=== PATIENT | female | born 1940 | race African-American/Black ===

== ENCOUNTER 2017-04-20 17:06 | Observation (INO) | payer MEDICARE, MEDICAID ==
--- NOTE | 2017-04-20 18:39 | RADIOLOGY REPORT (SQ) ---
EXAM DESCRIPTION: CHEST PA/LAT COMPLETED DATE/TIME: 04/20/2017 6:26 pm REASON FOR STUDY: Unspecified Encephalopathy COMPARISON: None. EXAM PARAMETERS: NUMBER OF VIEWS: two views TECHNIQUE: Digital Frontal and Lateral radiographic views of the chest acquired. RADIATION DOSE: NA LIMITATIONS: none FINDINGS: LUNGS AND PLEURA: No opacities, masses or pneumothorax. No pleural effusion. MEDIASTINUM AND HILAR STRUCTURES: No masses or contour abnormalities. HEART AND VASCULAR STRUCTURES: Heart normal size. No evidence for failure. BONES: No acute findings. HARDWARE: None in the chest. OTHER: No other significant finding. IMPRESSION: NO SIGNIFICANT RADIOGRAPHIC FINDING IN THE CHEST. TECHNICAL DOCUMENTATION: JOB ID: [id number] [employer]- All Rights Reserved
[2017-04-20 19:15] LABS: ABSOLUTE BASOPHILS # (AUTO) 0.1 10^3/uL (0.0-0.2); ABSOLUTE EOSINOPHILS # (AUTO) 0.2 10^3/uL (0.0-0.6); ABSOLUTE LYMPHOCYTES (AUTO) 1.3 10^3/uL (0.5-4.7); ABSOLUTE MONOCYTES (AUTO) 0.6 10^3/uL (0.1-1.4); ABSOLUTE NEUT (AUTO) 5.8 10^3/uL (1.7-8.2); BASOPHILS % (AUTO) 1.7 % (0-2); HEMATOCRIT 39.1 % (36.0-47.0); HEMOGLOBIN 12.5 g/dL (12.0-15.5); LYMPHOCYTES % (AUTO) 15.8 % (13-45); MEAN CORPUSCULAR HEMOGLOBIN 29.2 pg (27.0-33.4); MEAN CORPUSCULAR HGB CONC 32.1 g/dL (32.0-36.0); MEAN CORPUSCULAR VOLUME 91 fl (80-97); PLATELET COUNT 211 10^3/uL (150-450); RED BLOOD COUNT 4.29 10^6/uL (3.72-5.28); RED CELL DISTRIBUTION WIDTH 18.8 % (11.5-14.0); SEGMENTED NEUTROPHILS % (AUTO) 71.5 % (42-78); TOTAL CELLS COUNTED % (AUTO) 100 %; WHITE BLOOD COUNT 8.1 10^3/uL (4.0-10.5)
[2017-04-20 19:33] LABS: ALANINE AMINOTRANSFERASE 9 U/L (9-52); ALBUMIN 4.5 g/dL (3.5-5.0); ANION GAP 7 (5-19); BILIRUBIN,DIRECT 0.3 mg/dL (0.0-0.4); BILIRUBIN,TOTAL 0.3 mg/dL (0.2-1.3); BLOOD UREA NITROGEN 24 mg/dL (7-20); CARBON DIOXIDE 32 mmol/L (22-30); CHLORIDE 103 mmol/L (98-107); GLUCOSE 108 mg/dL (75-110); SODIUM 142.2 mmol/L (137-145)
[2017-04-20 19:34] LABS: CALCIUM 10.5 mg/dL (8.4-10.2); CREATINE KINASE 65 U/L (30-135)
--- NOTE | 2017-04-20 19:34 | ER Document Report ---
ED Medical Screen (RME) - General Chief Complaint: Direct Admit/Private MD Stated Complaint: DIRECT ADMIT-UNSPECIFIED ENCEPHALOPATHY Notes: This 76-year-old female patient was brought in for a direct admission for encephalopathy with nursing orders to include lab work and imaging studies. She is alert, reasonably oriented but does seem to have some dementia. She is smiling and pleasant and conversant. Vital signs are stable. She is medically stable at this time to wait until a bed assignment becomes available. Her lab work was initiated here in the triage area. I have greeted and performed a rapid initial assessment of this patient. A comprehensive ED assessment and evaluation of the patient, analysis of test results and completion of the medical decision making process will be conducted by additional ED providers. TRAVEL OUTSIDE OF THE [place] IN LAST 30 DAYS: No - Related Data Allergies/Adverse Reactions: No Known Allergies Allergy (Unverified 04/20/17 18:41) Home Medications: Current Home Medications Allopurinol [Zyloprim 100 mg Tablet] 100 mg PO DAILY 04/20/17 [History] Aspirin [Aspirin EC] 81 mg PO DAILY 04/20/17 [History] Hydrocodone/Acetaminophen [Hydrocodon-Acetaminoph 7.5-325] 1 each PO BID [History] Past Medical History - Social History Chew tobacco use (# tins/day): No Frequency of alcohol use: None Drug Abuse: None Renal/ Medical History: Denies: Hx Peritoneal Dialysis Past Surgical History: Reports: Hx Orthopedic Surgery - right knee replacement Physical Exam - Vital signs Vitals: Temp Pulse Resp BP Pulse Ox 97.7 F 72 18 116/50 L 99 04/20/17 17:46 04/20/17 17:46 04/20/17 17:46 04/20/17 17:46 04/20/17 17:46 Course - Vital Signs Vital signs: Temp Pulse Resp BP Pulse Ox 97.7 F 72 18 116/50 L 99 04/20/17 17:46 04/20/17 17:46 04/20/17 17:46 04/20/17 17:46 04/20/17 17:46 - Laboratory Result Diagrams: 04/20/17 19:02 04/20/17 19:02 Doctor's Discharge - Discharge Clinical Impression: Encephalitis Disposition: ADMITTED INPATIENT
[2017-04-20 19:35] LABS: ALKALINE PHOSPHATASE 73 U/L (38-126); ASPARTATE AMINO TRANSFERASE 26 U/L (14-36)
[2017-04-20 19:45] LABS: CREATINE KINASE MB 0.88 ng/mL (<4.55)
[2017-04-20 19:46] LABS: TROPONIN I < 0.012 ng/mL
[2017-04-20] MEDS ORDERED: NORMAL SALINE 1000 ML 1,000 ML IV PRN (20:55)
[2017-04-20] MEDS ORDERED: ALLOPURINOL 100 MG TABLET PO ONE (22:00)
[2017-04-20] MEDS ORDERED: ASPIRIN 81 MG TABLET, ENT COATED PO ONE (22:00)
[2017-04-20 22:16] LABS: APPEARANCE,URINE CLOUDY; BILIRUBIN,URINE NEGATIVE (NEGATIVE); COLOR,URINE YELLOW; GLUCOSE, URINE NEGATIVE (NEGATIVE); KETONES,URINE NEGATIVE (NEGATIVE); LEUKOCYTE ESTERASE,URINE LARGE (NEGATIVE); NITRITE,URINE NEGATIVE (NEGATIVE); PROTEIN,URINE 30 mg/dL (NEGATIVE); URINE SPECIFIC GRAVITY 1.021; UROBILINOGEN,URINE NEGATIVE mg/dL (<2.0)
[2017-04-21] MEDS: 1/2 NORMAL SALINE 1,000 ML IV PRN ×2 (00:11→20:36)
[2017-04-21 00:49] LABS: ARTERIAL BLOOD BASE EXCESS 1.5 mmol/L; ARTERIAL BLOOD H2CO3 1.38 mmol/L (1.05-1.35); ARTERIAL BLOOD O2 SATURATION 92.4 % (94-98); ARTERIAL BLOOD PH 7.39 (7.35-7.45); ARTERIAL BLOOD PO2 64.9 mmHg (80-100); ARTERIAL BLOOD TOTAL CO2 28.4 mmol/L (21-25)
[2017-04-21 00:59] LABS: ARTERIAL BLOOD FIO2 RA
[2017-04-21 01:58] LABS: CREATINE KINASE MB 0.65 ng/mL (<4.55)
[2017-04-21 02:01] LABS: TROPONIN I < 0.012 ng/mL
[2017-04-21] MEDS: HYDROCODONE/ACETAMINOPHEN 7.5-325 MG TABLET PO SCH ×3 (05:28→22:01)
--- NOTE | 2017-04-21 07:50 | EKG REPORT ---
SEVERITY:- NORMAL ECG - SINUS RHYTHM : Confirmed by: Timothy Deras MD 21-Apr-2017 07:49:20
[2017-04-21 08:15] LABS: CREATINE KINASE MB 0.55 ng/mL (<4.55)
[2017-04-21 08:18] LABS: TROPONIN I < 0.012 ng/mL
[2017-04-21] MEDS: ASPIRIN 81 MG TABLET, ENT COATED PO SCH (09:47)
[2017-04-21] MEDS: ALLOPURINOL 100 MG TABLET PO SCH (09:47)
[2017-04-21] MEDS ORDERED: LEVOTHYROXINE SODIUM 0.075 MG TABLET PO ONE (17:00)
[2017-04-21] MEDS ORDERED: CALCITRIOL 0.25 MCG CAPSULE PO ONE (17:00)
[2017-04-21] MEDS ORDERED: FERROUS SULFATE 325 MG TABLET PO SCH (17:30)
--- NOTE | 2017-04-21 17:33 | PDOC H&P ---
History of Present Illness Admission Date/PCP: 04/20/17 17:24 MARY RASHID MD History of Present Illness: IVY CLAIRE is a 76 year old female, she came to the office on 04/19/2017 with family because of concern that she may have suffered a stroke, she has a history of right cerebellar infarct, because of the concern MRI of the brain was done stat, it showed chronic appearing right inferior cerebellar hemisphere tiny lacunar infarct there was no acute change on the MRI, family was reassured that there was no stroke. They were concerned because she has symptoms that was similar when she had a stroke, she was confused, she had gait abnormality, increased fall AND very dizzy. The family called the office on 04/20/2017 because patient was still not improving, she was still confused, still talking out of her head she was directly admitted from the office into the hospital but unfortunately there was no bed in the hospital patient care was delayed, she stated for very long time in the emergency room , the initial blood work that was done showed serum creatinine 1.3 , there was no immediate metabolic explanation for the encephalopathic symptoms. Subsequently urine dipstick was done that suggest possible UTI. The blood gas showed mixed acid-base disorder Past Medical History Neurological Medical History: Reports: Other - History of right inferior cerebellar infarction Endocrine Medical History: Reports: Hypothyroidism Renal/ Medical History: Reports: Chronic Kidney Disease, Other - Chronic kidney disease stage III Past Surgical History Past Surgical History: Reports: Orthopedic Surgery - right knee replacement Social History Smoking Status: Former Smoker Number of Years Smokin Last Time Smoked: 1987 Frequency of Alcohol Use: None Hx Recreational Drug Use: No Drugs: None Hx Prescription Drug Abuse: No Family History Parental Family History Reviewed: Yes Children Family History Reviewed: Yes Sibling(s) Family History Reviewed.: Yes Medication/Allergy Home Medications: Allopurinol [Zyloprim 100 mg Tablet] 100 mg PO DAILY 04/21/17 Aspirin/Dipyridamole [Aggrenox 25 mg-200 mg Capsule] 1 cap PO Q12 04/21/17 Atorvastatin Calcium [Lipitor 10 mg Tablet] 10 mg PO DAILY 04/21/17 Calcitriol [Rocaltrol 0.5 mcg Capsule] 0.5 mcg PO DAILY 04/21/17 Ferrous Sulfate [Feosol 325 mg Tablet] 325 mg PO DAILY 04/21/17 Gabapentin [Neurontin 300 mg Capsule] 300 mg PO Q8 04/21/17 Levothyroxine Sodium [Synthroid 0.075 mg Tablet] 0.075 mg PO Q6AM 04/21/17 Metoprolol Succinate [Toprol XL 100 mg Tablet] 100 mg PO DAILY 04/21/17 Sertraline HCl [Zoloft 50 mg Tablet] 50 mg PO DAILY 04/21/17 Valsartan/Hydrochlorothiazide [Valsartan-Hctz 160-12.5 mg Tab] 1 tab PO DAILY Allergies/Adverse Reactions: No Known Allergies Allergy (Unverified 04/20/17 18:41) Review of Systems Constitutional: ABSENT: chills, fever(s), headache(s), weight gain, weight loss Eyes: ABSENT: visual disturbances Ears: ABSENT: hearing changes Cardiovascular: ABSENT: chest pain, dyspnea on exertion, edema, orthropnea, palpitations Respiratory: ABSENT: cough, hemoptysis Gastrointestinal: ABSENT: abdominal pain, constipation, diarrhea, hematemesis, hematochezia, nausea, vomiting Genitourinary: ABSENT: dysuria, hematuria Musculoskeletal: ABSENT: joint swelling Integumentary: ABSENT: rash, wounds Neurological: PRESENT: confusion Psychiatric: ABSENT: anxiety, depression, homidical ideation, suicidal ideation Endocrine: ABSENT: cold intolerance, heat intolerance, menstrual abnormalities, polydipsia, polyuria Hematologic/Lymphatic: ABSENT: easy bleeding, easy bruising, lymphadenopathy Physical Exam Vital Signs: Temp Pulse Resp BP Pulse Ox 97.7 F 67 14 117/61 86 L 04/20/17 17:46 04/21/17 02:00 04/21/17 11:30 04/21/17 11:30 04/21/17 11:30 Intake & Output 04/20/17 04/21/17 04/22/17 06:59 06:59 06:59 Intake Total 525 Balance 525 Weight 102.3 kg General appearance: PRESENT: no acute distress, well-developed, well-nourished Head exam: PRESENT: atraumatic, normocephalic Eye exam: PRESENT: conjunctiva pink, EOMI, PERRLA. ABSENT: scleral icterus Ear exam: PRESENT: normal external ear exam Mouth exam: PRESENT: moist, tongue midline Neck exam: PRESENT: full ROM Respiratory exam: PRESENT: clear to auscultation heidi Cardiovascular exam: PRESENT: RRR, +S1, +S2 Pulses: PRESENT: normal dorsalis pedis pul, +2 pedal pulses bilateral Vascular exam: PRESENT: normal capillary refill GI/Abdominal exam: PRESENT: normal bowel sounds, soft. ABSENT: distended, guarding, mass, organolmegaly, rebound, tenderness Rectal exam: PRESENT: deferred Neurological exam: PRESENT: alert, awake, oriented to person, oriented to place , oriented to time, oriented to situation, CN II-XII grossly intact Psychiatric exam: PRESENT: appropriate affect, normal mood Skin exam: PRESENT: dry, intact, warm Results Laboratory Results: 04/20/17 19:02 04/20/17 19:02 04/20/17 04/20/17 04/20/17 19:02 19: 19:02 WBC 8.1 RBC 4.29 Hgb 12.5 Hct 39.1 MCV 91 MCH 29.2 MCHC 32.1 RDW 18.8 H Plt Count 211 Seg Neutrophils % 71.5 Lymphocytes % 15.8 Monocytes % 8.0 Eosinophils % 3.0 Basophils % 1.7 Absolute Neutrophils 5.8 Absolute Lymphocytes 1.3 Absolute Monocytes 0.6 Absolute Eosinophils 0.2 Absolute Basophils 0.1 Carbonic Acid HCO3/H2CO3 Ratio ABG pH ABG pCO2 ABG pO2 ABG HCO3 ABG O2 Saturation ABG Base Excess FiO2 Sodium 142.2 Potassium 4.0 Chloride 103 Carbon Dioxide 32 H Anion Gap 7 BUN 24 H Creatinine 1.32 H Est GFR ( Amer) 47 L Est GFR (Non-Af Amer) 39 L Glucose 108 Lactic Acid 1.4 Calcium 10.5 H Total Bilirubin 0.3 AST 26 ALT 9 Alkaline Phosphatase 73 Total Protein 8.0 Albumin 4.5 PTH Intact Urine Color Urine Appearance Urine pH Ur Specific [place] Urine Protein Urine Glucose (UA) Urine Ketones Urine Blood Urine Nitrite Ur Leukocyte Esterase Urine WBC (Auto) Urine RBC (Auto) 04/20/17 04/20/17 04/21/17 20:45 22:18 00:20 WBC RBC Hgb Hct MCV MCH MCHC RDW Plt Count Seg Neutrophils % Lymphocytes % Monocytes % Eosinophils % Basophils % Absolute Neutrophils Absolute Lymphocytes Absolute Monocytes Absolute Eosinophils Absolute Basophils Carbonic Acid 1.38 H HCO3/H2CO3 Ratio 19:1 ABG pH 7.39 ABG pCO2 46.0 H ABG pO2 64.9 L ABG HCO3 27.0 H ABG O2 Saturation 92.4 L ABG Base Excess 1.5 FiO2 RA Sodium Potassium Chloride Carbon Dioxide Anion Gap BUN Creatinine Est GFR ( Amer) Est GFR (Non-Af Amer) Glucose Lactic Acid Calcium Total Bilirubin AST ALT Alkaline Phosphatase Total Protein Albumin PTH Intact 191.6 H Urine Color YELLOW Urine Appearance CLOUDY Urine pH 5.0 Ur Specific [place] 1.021 Urine Protein 30 H Urine Glucose (UA) NEGATIVE Urine Ketones NEGATIVE Urine Blood NEGATIVE Urine Nitrite NEGATIVE Ur Leukocyte Esterase LARGE H Urine WBC (Auto) 18 Urine RBC (Auto) 6 04/20/17 04/20/17 04/21/17 19:02 19:02 01:11 Creatine Kinase 65 55 CK-MB (CK-2) 0.88 Troponin I < 0.012 04/21/17 04/21/17 04/21/17 01:11 07:35 07:35 Creatine Kinase 48 CK-MB (CK-2) 0.65 0.55 Troponin I < 0.012 < 0.012 Impressions: Chest X-Ray 04/20/17 00:00 IMPRESSION: NO SIGNIFICANT RADIOGRAPHIC FINDING IN THE CHEST. Assessment & Plan - Diagnosis (1) Encephalopathy, unspecified Is this a current diagnosis for this admission?: Yes Plan: She has symptoms of encephalopathy family suggest that these symptoms are recent , this could be related to urinary tract infection she also have baseline dementia. She will be treated for UTI with antibiotic (2) Urinary tract infection Qualifiers: Urinary tract infection type: site unspecified Hematuria presence: without hematuria Qualified Code(s): N39.0 - Urinary tract infection, site not specified Is this a current diagnosis for this admission?: Yes Plan: The urinalysis positive for bacteriuria, pyuria (3) Personal history of cerebrovascular accident with residual effects Is this a current diagnosis for this admission?: Yes Plan: The MRI done was negative for acute CVA, it confirmed old right inferior cerebellar infarction (4) Chronic kidney disease, stage 3 Is this a current diagnosis for this admission?: Yes (5) Mixed acid base balance disorder Is this a current diagnosis for this admission?: Yes
[2017-04-21] MEDS ORDERED: HYDROCHLOROTHIAZIDE 12.5 MG CAPSULE PO ONE (18:00)
[2017-04-21] MEDS ORDERED: SERTRALINE HCL 50 MG TABLET PO ONE (18:00)
[2017-04-21] MEDS ORDERED: VALSARTAN 160 MG TABLET PO ONE (18:00)
[2017-04-21] MEDS ORDERED: METOPROLOL SUCCINATE 50 MG TAB.SR.24H PO ONE (18:00)
[2017-04-21 18:17] LABS: FREE T4 (FREE THYROXINE) 1.74 ng/dL (0.78-2.19)
[2017-04-21] MEDS: CIPROFLOXACIN 400 MG/D5W RTU 400 MG/200 ML RTUPB IV SCH (18:30)
[2017-04-21 18:31] LABS: THYROID STIMULATING HORMONE 1.28 uIU/mL (0.47-4.68)
--- NOTE | 2017-04-21 20:43 | PDOC PROGRESS REPORT ---
Subjective Progress Note for:: 04/21/17 Subjective:: Patient was admitted yesterday for evaluation of unspecified encephalopathy, there is associated UTI she was seen today in rounds plan of care was discussed with family Reason For Visit: UTI,ENCEPHALOPATHY,CKD Physical Exam Vital Signs: Temp Pulse Resp BP Pulse Ox 97.7 F 67 14 117/61 86 L 04/20/17 17:46 04/21/17 02:00 04/21/17 11:30 04/21/17 11:30 04/21/17 11:30 Intake & Output 04/20/17 04/21/17 04/22/17 06:59 06:59 06:59 Intake Total 525 Balance 525 Weight 102.3 kg General appearance: PRESENT: no acute distress, well-developed, well-nourished Head exam: PRESENT: atraumatic, normocephalic Eye exam: PRESENT: conjunctiva pink, EOMI, PERRLA Ear exam: PRESENT: normal external ear exam Mouth exam: PRESENT: moist, tongue midline Neck exam: PRESENT: full ROM. ABSENT: carotid bruit, JVD, lymphadenopathy, thyromegaly Respiratory exam: PRESENT: clear to auscultation heidi Cardiovascular exam: PRESENT: RRR, +S1, +S2 Vascular exam: PRESENT: normal capillary refill GI/Abdominal exam: PRESENT: normal bowel sounds, soft Rectal exam: PRESENT: deferred Neurological exam: PRESENT: alert Skin exam: PRESENT: dry, intact, warm Results Laboratory Results: 04/20/17 19:02 04/20/17 19:02 04/20/17 04/20/17 04/21/17 20:45 22:18 00:20 Carbonic Acid 1.38 H HCO3/H2CO3 Ratio 19:1 ABG pH 7.39 ABG pCO2 46.0 H ABG pO2 64.9 L ABG HCO3 27.0 H ABG O2 Saturation 92.4 L ABG Base Excess 1.5 FiO2 RA TSH Free T4 PTH Intact 191.6 H Urine Color YELLOW Urine Appearance CLOUDY Urine pH 5.0 Ur Specific [place] 1.021 Urine Protein 30 H Urine Glucose (UA) NEGATIVE Urine Ketones NEGATIVE Urine Blood NEGATIVE Urine Nitrite NEGATIVE Ur Leukocyte Esterase LARGE H Urine WBC (Auto) 18 Urine RBC (Auto) 6 04/21/17 07:35 Carbonic Acid HCO3/H2CO3 Ratio ABG pH ABG pCO2 ABG pO2 ABG HCO3 ABG O2 Saturation ABG Base Excess FiO2 TSH 1.28 Free T4 1.74 PTH Intact Urine Color Urine Appearance Urine pH Ur Specific [place] Urine Protein Urine Glucose (UA) Urine Ketones Urine Blood Urine Nitrite Ur Leukocyte Esterase Urine WBC (Auto) Urine RBC (Auto) 04/20/17 04/20/17 04/21/17 19:02 19:02 01:11 Creatine Kinase 65 55 CK-MB (CK-2) 0.88 Troponin I < 0.012 04/21/17 04/21/17 04/21/17 01:11 07:35 07:35 Creatine Kinase 48 CK-MB (CK-2) 0.65 0.55 Troponin I < 0.012 < 0.012 Impressions: Chest X-Ray 04/20/17 00:00 IMPRESSION: NO SIGNIFICANT RADIOGRAPHIC FINDING IN THE CHEST. Assessment & Plan - Diagnosis (1) Encephalopathy, unspecified Is this a current diagnosis for this admission?: Yes (2) Urinary tract infection Qualifiers: Urinary tract infection type: site unspecified Hematuria presence: without hematuria Qualified Code(s): N39.0 - Urinary tract infection, site not specified Is this a current diagnosis for this admission?: Yes (3) Personal history of cerebrovascular accident with residual effects Is this a current diagnosis for this admission?: Yes (4) Chronic kidney disease, stage 3 Is this a current diagnosis for this admission?: Yes (5) Mixed acid base balance disorder Is this a current diagnosis for this admission?: Yes
[2017-04-21] MEDS: GABAPENTIN 300 MG CAPSULE PO SCH (22:01)
[2017-04-21] MEDS: ATORVASTATIN CALCIUM 10 MG TABLET PO SCH (22:01)
[2017-04-21] MEDS: ASPIRIN/DIPYRIDAMOLE 25-200 MG 1 CAP.SR CPMP.12HR PO SCH (22:02)
[2017-04-21 22:35] LABS: ALANINE AMINOTRANSFERASE 17 U/L (9-52); ALBUMIN 3.4 g/dL (3.5-5.0); ALKALINE PHOSPHATASE 61 U/L (38-126); ANION GAP 9 (5-19); ASPARTATE AMINO TRANSFERASE 15 U/L (14-36); BLOOD UREA NITROGEN 20 mg/dL (7-20); CALCIUM 9.7 mg/dL (8.4-10.2); CARBON DIOXIDE 24 mmol/L (22-30); CHLORIDE 106 mmol/L (98-107); GLUCOSE 94 mg/dL (75-110); POTASSIUM 4.2 mmol/L (3.6-5.0); SODIUM 139.2 mmol/L (137-145)
[2017-04-21 22:42] LABS: BILIRUBIN,TOTAL < 0.1 mg/dL (0.2-1.3)
[2017-04-22] MEDS ORDERED: OXYCODONE-ACETAMINOPHEN 5-325 MG TABLET PO PRN (00:16)
[2017-04-22] MEDS: GABAPENTIN 300 MG CAPSULE PO SCH ×3 (05:03→21:22)
[2017-04-22] MEDS: CIPROFLOXACIN 400 MG/D5W RTU 400 MG/200 ML RTUPB IV SCH ×2 (05:03→18:50)
[2017-04-22] MEDS: LEVOTHYROXINE SODIUM 0.075 MG TABLET PO SCH (05:03)
[2017-04-22] MEDS ORDERED: HYDROCHLOROTHIAZIDE 12.5 MG CAPSULE PO SCH (10:00)
[2017-04-22] MEDS ORDERED: (PENDING PHARMACY ID) (Valsartan/Hydrochlorothiazide [Valsartan-Hctz 160-12.5 Mg Tab] 1 TA PO SCH (10:00)
[2017-04-22] MEDS ORDERED: (PENDING PHARMACY ID) (Calcitriol [Rocaltrol 0.5 Mcg Capsule] 0.5 MCG) PO SCH (10:00)
[2017-04-22] MEDS ORDERED: ALLOPURINOL 100 MG TABLET PO SCH (10:00)
[2017-04-22] MEDS: CALCITRIOL 0.25 MCG CAPSULE PO SCH (10:07)
[2017-04-22] MEDS: ASPIRIN 81 MG TABLET, ENT COATED PO SCH (10:08)
[2017-04-22] MEDS: ALLOPURINOL 100 MG TABLET PO SCH (10:08)
[2017-04-22] MEDS: SERTRALINE HCL 50 MG TABLET PO SCH (10:08)
[2017-04-22] MEDS: FERROUS SULFATE 325 MG TABLET PO SCH (10:08)
[2017-04-22] MEDS: ASPIRIN/DIPYRIDAMOLE 25-200 MG 1 CAP.SR CPMP.12HR PO SCH ×2 (10:10→21:22)
[2017-04-22] MEDS: HYDROCHLOROTHIAZIDE 12.5 MG CAPSULE PO SCH (10:12)
[2017-04-22] MEDS: METOPROLOL SUCCINATE 50 MG TAB.SR.24H PO SCH (13:12)
[2017-04-22] MEDS: VALSARTAN 160 MG TABLET PO SCH (13:12)
[2017-04-22] MEDS: HYDROCODONE/ACETAMINOPHEN 7.5-325 MG TABLET PO SCH ×2 (13:17→21:22)
[2017-04-22] MEDS: ATORVASTATIN CALCIUM 10 MG TABLET PO SCH (21:23)
[2017-04-22] MEDS ORDERED: ATORVASTATIN CALCIUM 10 MG TABLET PO SCH ×2 (22:00)
--- NOTE | 2017-04-22 22:25 | PDOC PROGRESS REPORT ---
Subjective Progress Note for:: 04/22/17 Subjective:: Patient was admitted for the management of encephalopathy she was found to have UTI, treated with antibiotic ,ciprofloxacin. The encephalopathy is thought to be related to the UTI Reason For Visit: UTI,ENCEPHALOPATHY,CKD Physical Exam Vital Signs: Temp Pulse Resp BP Pulse Ox 98.0 F 73 18 106/57 L 100 04/22/17 15:57 04/22/17 19:00 04/22/17 15:57 04/22/17 15:57 04/22/17 15:57 Intake & Output 04/21/17 04/22/17 04/23/17 06:59 06:59 06:59 Intake Total 340 157 2903 Output Total 200 Balance 945 478 3364 Weight 102.3 kg 92.6 kg General appearance: PRESENT: no acute distress Eye exam: PRESENT: PERRLA Respiratory exam: PRESENT: clear to auscultation heidi Cardiovascular exam: PRESENT: +S1, +S2 GI/Abdominal exam: PRESENT: soft Neurological exam: PRESENT: alert, CN II-XII grossly intact Results Laboratory Results: 04/20/17 19:02 04/21/17 21:25 04/21/17 21:25 Sodium 139.2 Potassium 4.2 Chloride 106 Carbon Dioxide 24 Anion Gap 9 BUN 20 Creatinine 1.01 Est GFR ( Amer) > 60 Est GFR (Non-Af Amer) 53 L Glucose 94 Calcium 9.7 Total Bilirubin < 0.1 L AST 15 ALT 17 Alkaline Phosphatase 61 Total Protein 6.0 L Albumin 3.4 L 04/20/17 20:45 Catheterized Urine Urine Culture - Final Mixed Urogenital Stacy 04/20/17 04/20/17 04/21/17 19:02 19:02 01:11 Creatine Kinase 65 55 CK-MB (CK-2) 0.88 Troponin I < 0.012 04/21/17 04/21/17 04/21/17 01:11 07:35 07:35 Creatine Kinase 48 CK-MB (CK-2) 0.65 0.55 Troponin I < 0.012 < 0.012 Impressions: Chest X-Ray 04/20/17 00:00 IMPRESSION: NO SIGNIFICANT RADIOGRAPHIC FINDING IN THE CHEST. Assessment & Plan - Diagnosis (1) Encephalopathy, unspecified Is this a current diagnosis for this admission?: Yes (2) Urinary tract infection Qualifiers: Urinary tract infection type: site unspecified Hematuria presence: without hematuria Qualified Code(s): N39.0 - Urinary tract infection, site not specified Is this a current diagnosis for this admission?: Yes (3) Personal history of cerebrovascular accident with residual effects Is this a current diagnosis for this admission?: Yes (4) Chronic kidney disease, stage 3 Is this a current diagnosis for this admission?: Yes (5) Mixed acid base balance disorder Is this a current diagnosis for this admission?: Yes
[2017-04-23] MEDS: GABAPENTIN 300 MG CAPSULE PO SCH ×3 (05:03→21:28)
[2017-04-23] MEDS: LEVOTHYROXINE SODIUM 0.075 MG TABLET PO SCH (05:03)
[2017-04-23] MEDS: CIPROFLOXACIN 400 MG/D5W RTU 400 MG/200 ML RTUPB IV SCH (08:26)
[2017-04-23] MEDS: ALLOPURINOL 100 MG TABLET PO SCH (09:57)
[2017-04-23] MEDS: VALSARTAN 160 MG TABLET PO SCH (09:57)
[2017-04-23] MEDS: HYDROCODONE/ACETAMINOPHEN 7.5-325 MG TABLET PO SCH ×2 (09:57→21:28)
[2017-04-23] MEDS: ASPIRIN/DIPYRIDAMOLE 25-200 MG 1 CAP.SR CPMP.12HR PO SCH ×2 (09:58→21:28)
[2017-04-23] MEDS: CALCITRIOL 0.25 MCG CAPSULE PO SCH (09:58)
[2017-04-23] MEDS: SERTRALINE HCL 50 MG TABLET PO SCH (09:58)
[2017-04-23] MEDS: FERROUS SULFATE 325 MG TABLET PO SCH (09:59)
[2017-04-23] MEDS: METOPROLOL SUCCINATE 50 MG TAB.SR.24H PO SCH (09:59)
[2017-04-23] MEDS: ASPIRIN 81 MG TABLET, ENT COATED PO SCH (09:59)
[2017-04-23] MEDS: HYDROCHLOROTHIAZIDE 12.5 MG CAPSULE PO SCH (10:01)
--- NOTE | 2017-04-23 17:05 | Physician Advisory Note ---
Physician Advisor ProgressNote .: Pursuant to the plan for [facility], I have reviewed the medical record for this patient. Physician Advisor Statement: Please consider documenting, if you agree: 1. "Acute metabolic encephalopathy, likely due to and evidenced by __" - Each day's note should state how her encephalopathy findings are changed since arrival, and in what ways she is still different than baseline, in sx & exam findings. This is especially important in patients with underlying dementia, to clarify what is different from baseline each day, or payers will assert that the pt's sx are all due to her baseline dementia without significant change. - Please also clarify the potential discrepancy between the H&P report that she was confused and talking out of her head, and the H&P exam findings that she was "oriented to person, place, time & situation". Had her mental status already returned to baseline by time of arrival in ED? 2. 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 3. Medical necessity: each day's note needs to make clear why pt still needs to be in hospital as opposed to home with family or in CORRECTION/SNF care, if there are no discharge orders. Thanks! CK
[2017-04-23] MEDS: CIPROFLOXACIN HCL 500 MG TABLET PO SCH (17:21)
[2017-04-23] MEDS: ATORVASTATIN CALCIUM 10 MG TABLET PO SCH (21:28)
[2017-04-24] MEDS: GABAPENTIN 300 MG CAPSULE PO SCH (05:05)
[2017-04-24] MEDS: LEVOTHYROXINE SODIUM 0.075 MG TABLET PO SCH (05:05)
[2017-04-24] MEDS: ASPIRIN/DIPYRIDAMOLE 25-200 MG 1 CAP.SR CPMP.12HR PO SCH (09:16)
[2017-04-24] MEDS: VALSARTAN 160 MG TABLET PO SCH (09:16)
[2017-04-24] MEDS: CIPROFLOXACIN HCL 500 MG TABLET PO SCH (09:16)
[2017-04-24] MEDS: CALCITRIOL 0.25 MCG CAPSULE PO SCH (09:16)
[2017-04-24] MEDS: METOPROLOL SUCCINATE 50 MG TAB.SR.24H PO SCH (09:17)
[2017-04-24] MEDS: HYDROCODONE/ACETAMINOPHEN 7.5-325 MG TABLET PO SCH (09:17)
[2017-04-24] MEDS: HYDROCHLOROTHIAZIDE 12.5 MG CAPSULE PO SCH (09:17)
[2017-04-24] MEDS: ALLOPURINOL 100 MG TABLET PO SCH (09:17)
[2017-04-24] MEDS: ASPIRIN 81 MG TABLET, ENT COATED PO SCH (09:17)
[2017-04-24] MEDS: FERROUS SULFATE 325 MG TABLET PO SCH (09:18)
[2017-04-24] MEDS: SERTRALINE HCL 50 MG TABLET PO SCH (09:18)
--- NOTE | 2017-04-24 11:17 | PDOC DISCHARGE SUMMARY ---
General - Admit/Disc Date/PCP Admission Date/Primary Care Provider: 04/20/17 17:24 MARY RASHID MD Discharge Date: 04/24/17 - Discharge Diagnosis (1) Encephalopathy, unspecified Is this a current diagnosis for this admission?: Yes (2) Urinary tract infection Is this a current diagnosis for this admission?: Yes (3) Personal history of cerebrovascular accident with residual effects Is this a current diagnosis for this admission?: Yes (4) Chronic kidney disease, stage 3 Is this a current diagnosis for this admission?: Yes (5) Mixed acid base balance disorder Is this a current diagnosis for this admission?: Yes (6) Mild cognitive impairment Is this a current diagnosis for this admission?: Yes - Additional Information Prescriptions: Donepezil HCl [Aricept] 5 mg PO DAILY #90 tablet Home Medications: Allopurinol [Zyloprim 100 mg Tablet] 100 mg PO DAILY 04/21/17 Aspirin/Dipyridamole [Aggrenox 25 mg-200 mg Capsule] 1 cap PO Q12 04/21/17 Atorvastatin Calcium [Lipitor 10 mg Tablet] 10 mg PO DAILY 04/21/17 Calcitriol [Rocaltrol 0.5 mcg Capsule] 0.5 mcg PO DAILY 04/21/17 Ferrous Sulfate [Feosol 325 mg Tablet] 325 mg PO DAILY 04/21/17 Gabapentin [Neurontin 300 mg Capsule] 300 mg PO Q8 04/21/17 Levothyroxine Sodium [Synthroid 0.075 mg Tablet] 0.075 mg PO Q6AM 04/21/17 Metoprolol Succinate [Toprol XL 100 mg Tablet] 100 mg PO DAILY 04/21/17 Sertraline HCl [Zoloft 50 mg Tablet] 50 mg PO DAILY 04/21/17 Valsartan/Hydrochlorothiazide [Valsartan-Hctz 160-12.5 mg Tab] 1 tab PO DAILY Donepezil HCl [Aricept] 5 mg PO DAILY #90 tablet 04/24/17 History of Present Illness History of Present Illness: IVY CLAIRE is a 76 year old female, she came to the office on 04/19/2017 with family because of concern that she may have suffered a stroke, she has a history of right cerebellar infarct, because of the concern MRI of the brain was done stat, it showed chronic appearing right inferior cerebellar hemisphere tiny lacunar infarct there was no acute change on the MRI, family was reassured that there was no stroke. They were concerned because she has symptoms that was similar when she had a stroke, she was confused, she had gait abnormality, increased fall AND very dizzy. The family called the office on 04/20/2017 because patient was still not improving, she was still confused, still talking out of her head she was directly admitted from the office into the hospital but unfortunately there was no bed in the hospital patient care was delayed, she stated for very long time in the emergency room , the initial blood work that was done showed serum creatinine 1.3 , there was no immediate metabolic explanation for the encephalopathic symptoms. Subsequently urine dipstick was done that suggest possible UTI. The blood gas showed mixed acid-base disorder Hospital Course Hospital Course: Patient was admitted for the management of encephalopathy, it was felt initially that she may have a stroke MRI brain was done, it was negative for any acute stroke she was found to have UTI no specific pathogen was found, she was treated empirically with antibiotic ciprofloxacin, she has baseline mild cognitive impairment Physical Exam Vital Signs: Temp Pulse Resp BP Pulse Ox 97.8 F 60 20 121/62 100 04/24/17 07:11 04/24/17 07:11 04/24/17 07:11 04/24/17 07:11 04/24/17 07:11 Intake & Output 04/23/17 04/24/17 04/25/17 06:59 06:59 06:59 Intake Total 1896 1180 Balance 1896 1180 Weight 95.3 kg 91.9 kg General appearance: PRESENT: no acute distress, well-developed, well-nourished Head exam: PRESENT: atraumatic, normocephalic Eye exam: PRESENT: conjunctiva pink, EOMI, PERRLA. ABSENT: scleral icterus Ear exam: PRESENT: normal external ear exam Mouth exam: PRESENT: moist, tongue midline Neck exam: PRESENT: full ROM Respiratory exam: PRESENT: clear to auscultation heidi Cardiovascular exam: PRESENT: RRR, +S1, +S2. ABSENT: diastolic murmur, rubs, systolic murmur Pulses: PRESENT: normal dorsalis pedis pul, +2 pedal pulses bilateral Vascular exam: PRESENT: normal capillary refill GI/Abdominal exam: PRESENT: normal bowel sounds, soft Rectal exam: PRESENT: deferred Neurological exam: PRESENT: alert, awake, oriented to person, oriented to place , oriented to time, oriented to situation, CN II-XII grossly intact. ABSENT: motor sensory deficit Psychiatric exam: PRESENT: appropriate affect, normal mood Skin exam: PRESENT: dry, intact, warm Results Laboratory Results: 04/20/17 19:02 04/21/17 21:25 04/20/17 04/20/17 04/21/17 19:02 19:02 01:11 Creatine Kinase 65 55 CK-MB (CK-2) 0.88 Troponin I < 0.012 04/21/17 04/21/17 04/21/17 01:11 07:35 07:35 Creatine Kinase 48 CK-MB (CK-2) 0.65 0.55 Troponin I < 0.012 < 0.012 Impressions: Chest X-Ray 04/20/17 00:00 IMPRESSION: NO SIGNIFICANT RADIOGRAPHIC FINDING IN THE CHEST.
[2017-04-24 11:42] VITALS: BP 106/57
== END 2017-04-24 12:06 | disposition home or self-care (01) ==
LOC: ER 17:06 → EH 17:24 → INTOOBSV 17:24 → EH 17:24 → UNDOADMOB 17:24 → 3N 04-21 20:16
PROVIDERS: ADMIT Internal Medicine; ATTEND Internal Medicine
DX: G93.40 Encephalopathy, unspecified (principal); N39.0 Urinary tract infection, site not specified; N18.3 Chronic kidney disease, stage 3 (moderate); E87.4 Mixed disorder of acid-base balance; G31.84 Mild cognitive impairment of uncertain or unknown etiology; I69.30 Unspecified sequelae of cerebral infarction; Z79.899 Other long term (current) drug therapy; Z79.82 Long term (current) use of aspirin; Z96.651 Presence of right artificial knee joint; Z87.891 Personal history of nicotine dependence
CPT/HCPCS: 99281; 36415 ×2; 87040; 87086; 84439; 82553 ×2; 82803; 82550 ×2; 84443; 85025; 80076; 80048; 80053; 81001; 84484 ×2; 83605; 83970; 71046; 93005; 93010; G0378 ×4; A9270 ×49; J0744 ×2

== ENCOUNTER 2017-05-03 12:46 | Emergency (ER) | payer MEDICARE, MEDICAID ==
--- NOTE | 2017-05-03 14:03 | ER Document Report ---
ED General - General Chief Complaint: Headache Stated Complaint: HEADACHE Time Seen by Provider: 05/03/17 13:47 Mode of Arrival: Ambulatory Information source: Patient Notes: Patient reports severe headaches for several weeks. She states she was recently hospitalized for similar concerns. She states she is also had some strokes in the past. She states today she was having headaches and her blood pressure was elevated. She states she was going to come to the hospital within her blood pressure came down so she felt that she did not need to go. However her daughter called and spoke with her primary care physician, Dr. Rashid. Daughter states that Dr. Rashid once the patient be evaluated in the emergency department. Patient describes the headache as intermittent. Nothing makes it better or worse. No known radiation. She did have some vomiting last night but none today. No recent fevers cough cold or congestion. She states she feels better now. I did call and speak with Dr. Rashid. He states there is a misunderstanding he wanted the patient to come to his office. TRAVEL OUTSIDE OF THE [place] IN LAST 30 DAYS: No - Related Data Allergies/Adverse Reactions: steriods Allergy (Uncoded 05/03/17 13:54) Past Medical History - General Information source: Patient, Relative - Social History Smoking Status: Never Smoker Chew tobacco use (# tins/day): No Frequency of alcohol use: None Drug Abuse: None Family History: Reviewed & Not Pertinent Patient has suicidal ideation: No Patient has homicidal ideation: No Endocrine Medical History: Reports: Hx Hypothyroidism Renal/ Medical History: Denies: Hx Peritoneal Dialysis Past Surgical History: Reports: Hx Orthopedic Surgery - right knee replacement Review of Systems - Review of Systems Constitutional: denies: Chills, Fever Cardiovascular: denies: Chest pain, Palpitations Respiratory: denies: Cough, Short of breath Physical Exam - Vital signs Vitals: Temp Pulse Resp BP Pulse Ox 97.7 F 75 16 152/82 H 96 05/03/17 12:56 05/03/17 12:56 05/03/17 12:56 05/03/17 12:56 05/03/17 12:56 Interpretation: Hypertensive. No: Hypotensive, Bradycardic, Tachycardic, Hypoxic, Tachypneic, Febrile - General General appearance: Appears well, Alert In distress: None - HEENT Head: Normocephalic, Atraumatic Eyes: Normal Pupils: PERRL - Respiratory Respiratory status: No respiratory distress Chest status: Nontender Breath sounds: Normal Chest palpation: Normal - Cardiovascular Rhythm: Regular Heart sounds: Normal auscultation Murmur: No - Neurological Neuro grossly intact: Yes Cognition: Normal Orientation: AAOx4 [place] Coma Scale Eye Opening: Spontaneous [place] Coma Scale Verbal: Oriented [place] Coma Scale Motor: Obeys Commands [place] Coma Scale Total: 15 Speech: Normal - Psychological Associated symptoms: Normal affect, Normal mood - Skin Skin Temperature: Warm Skin Moisture: Dry Skin Color: Normal Course - Vital Signs Vital signs: Temp Pulse Resp BP Pulse Ox 97.7 F 75 16 152/82 H 96 05/03/17 12:56 05/03/17 12:56 05/03/17 12:56 05/03/17 12:56 05/03/17 12:56 Discharge - Discharge Clinical Impression: Frequent headaches Condition: Stable Disposition: HOME, SELF-CARE Instructions: Headache ([facility]) Additional Instructions: Please go straight to Dr. Rashid's office. Your blood pressure is elevated. Please make sure Dr. Rashid does a recheck of your blood pressure today. Forms: Elevated Blood Pressure Referrals: MARY RASHID MD [ACTIVE STAFF] - Follow up as needed
[2017-05-03 14:27] VITALS: BP 134/78
== END 2017-05-03 14:25 | disposition home or self-care (01) ==
LOC: ER 12:46
DX: R51 Headache (principal); Z86.73 Personal history of transient ischemic attack (TIA), and cerebral infarction without residual deficits
CPT/HCPCS: 99283

== ENCOUNTER → 2017-11-15 | Outpatient (CLI) | payer MEDICARE, MEDICAID ==
--- NOTE | 2017-11-15 14:09 | RADIOLOGY REPORT (SQ) ---
EXAM DESCRIPTION: BARIUM SWALLOW ESOPHAGUS COMPLETED DATE/TIME: 11/15/2017 1:52 pm REASON FOR STUDY: DYSPHAGIA, UNSPECIFIED R13.10 DYSPHAGIA, UNSPECIFIED COMPARISON: None. TECHNIQUE: Under fluoroscopic guidance, patient ingested effervescent granules followed by thick and thin barium. Fluoroscopic spot images and routine radiographic images acquired and stored on PACS. 12 MM BARIUM TABLET GIVEN: Yes. No significant delay in passage. LIMITATIONS: None. FLUOROSCOPY TIME: FLUORO TIME: 1 minutes 45 seconds 5 series of digital fluoroscopic images saved to PACS. FINDINGS: NEUROMUSCULAR COORDINATION OF SWALLOW: Normal. No aspiration. ESOPHAGEAL MOTILITY: Normal peristalsis. No esophageal spasm. ESOPHAGEAL MUCOSA: Normal mucosa without masses or ulceration. GASTRO-ESOPHAGEAL JUNCTION: Small hiatal hernia. Minimal Schatzki's ring formation. 12 mm barium ta blet passed through this region without difficulty. Mild gastroesophageal reflux NON-GI TRACT STRUCTURES: Degenerative disc changes cervical spine OTHER: No other significant finding. IMPRESSION: Small hiatal hernia early Schatzki's ring formation. Mild gastroesophageal reflux. No tight distal esophageal stricture. COMMENT: Quality ID 145: Final reports for procedures using fluoroscopy that document radiation exp osure indices, or exposure time and number of fluorographic images (if radiation exposure indices are not available) TECHNICAL DOCUMENTATION: JOB ID: [id number] [employer]- All Rights Reserved Reading location - IP/workstation name: [email or web address]
== END ==
LOC: RAD 12:56 → MERGE 12:56
PROVIDERS: ATTEND Internal Medicine
DX: K22.2 Esophageal obstruction (principal); K21.9 Gastro-esophageal reflux disease without esophagitis; K44.9 Diaphragmatic hernia without obstruction or gangrene; R13.10 Dysphagia, unspecified
CPT/HCPCS: 74220

== ENCOUNTER → 2018-01-24 | Outpatient (CLI) | payer MEDICARE, MEDICAID ==
--- NOTE | 2018-01-24 11:48 | RADIOLOGY REPORT (SQ) ---
EXAM DESCRIPTION: BARIUM SWALLOW ESOPHAGUS COMPLETED DATE/TIME: 01/24/2018 10:21 am REASON FOR STUDY: DYSPHAGIA, UNSPECIFIED R13.10 DYSPHAGIA, UNSPECIFIED COMPARISON: None. TECHNIQUE: Under fluoroscopic guidance, patient ingested effervescent granules followed by thick and thin barium. Fluoroscopic spot images and routine radiographic images acquired and stored on PACS. 12 MM BARIUM TABLET GIVEN: Yes No significant delay in passage. LIMITATIONS: None. FLUOROSCOPY TIME: FLUORO TIME: 2.1 minutes 6 series of digital images saved to PACS. FINDINGS: NEUROMUSCULAR COORDINATION OF SWALLOW: Normal. No aspiration. ESOPHAGEAL MOTILITY: Normal peristalsis. No esophageal spasm. ESOPHAGEAL MUCOSA: Normal mucosa without masses or ulceration. GASTRO-ESOPHAGEAL JUNCTION: Small hiatal hernia without Schatzki's ring or distal esophageal strictur e. Unprovoked gastroesophageal reflux to the mid 3rd of the esophagus. No distal esophageal mucosal abnormalities worrisome for esophagitis NON-GI TRACT STRUCTURES: No significant finding. OTHER: No other significant finding. IMPRESSION: Small hiatal hernia without Schatzki's ring or distal esophageal stricture. Patient swallowed a 12 mm barium tablet without difficulty Unprovoked gastroesophageal reflux to the mid 3rd of the esophagus COMMENT: Quality ID 145: Final reports for procedures using fluoroscopy that document radiation exp osure indices, or exposure time and number of fluorographic images (if radiation exposure indices are not available) TECHNICAL DOCUMENTATION: JOB ID: [id number] [employer]- All Rights Reserved Reading location - IP/workstation name: [email or web address]
== END ==
LOC: RAD 09:48
PROVIDERS: ATTEND Internal Medicine Gastroenterology
DX: R13.10 Dysphagia, unspecified (principal)
CPT/HCPCS: 74220

== ENCOUNTER → 2018-03-15 | Outpatient (CLI) | payer MEDICARE, MEDICAID ==
--- NOTE | 2018-03-15 10:22 | RADIOLOGY REPORT (SQ) ---
EXAM DESCRIPTION: RUSSELL SWALLOW COMPLETED DATE/TIME: 03/15/2018 9:08 am REASON FOR STUDY: R13.10 DYSPHAGIA, UNSPECIFIED R13.10 DYSPHAGIA, UNSPECIFIED COMPARISON: None. TECHNIQUE: Videofluoroscopic swallowing examination was performed in conjunction with speech patholo gy. Videofluoroscopic imaging was obtained and reviewed and these are the findings: RADIATION DOSE: Fluoro time 1.55 minutes 1 images saved to PACS. LIMITATIONS: None FINDINGS: The patient was brought into the fluoro room and placed upright on a modified barium swall ow chair. The patient was then given multiple consistencies mixed with barium to swallow under live fluoroscopic video guidance. According to the Speech Pathologist there was no penetration or aspirat ion. Mild hang up of barium is seen in the upper esophagus just above the cricopharyngeus. Please re antonio to the speech pathology report for further details. IMPRESSION: NO EVIDENCE OF PENETRATION OR ASPIRATION.PLEASE SEE SPEECH PATHOLOGIST REPORT FOR OTHER FINDINGS AND RECOMMENDATIONS. COMMENT: None Quality ID 145: Final reports for procedures using fluoroscopy that document radiation exposure tete mallory, or exposure time and number of fluorographic images (if radiation exposure indices are not avail able) TECHNICAL DOCUMENTATION: JOB ID: [id number] [employer]- All Rights Reserved Reading location - IP/workstation name: [email or web address]
--- NOTE | 2018-03-15 12:41 | ST Modified Barium Swallow ---
Recommendation - Recommendations Recommendations: No skilled dysphagia treatment indicated. No oral or pharyngeal deficits seen. Medical Diagnoses - Medical Diagnoses Medical Diagnosis Description & ICD-10 Code(s): R13.10, dysphagia Other Medical Diagnoses/Co-Morbidities: per patient report: CVA April and December of 2016, reflux, esophageal dilation, reflux. ST Modified Barium Swallow - General Date: 03/15/18 Referring Physician: Dr. Garduno Risks/Precautions: None Date of Onset: 03/12/17 - approximate onset date Reason for Referral: difficulty swallowing - History History obtained from: Patient -: Medical - Patient attended assessment independently and acted as her own historian. Patient reports swallowing difficulties for approximately 1 year. States that she had globus sensation with "heavier foods" and pills. She has had an esophageal dilation, but does not report improvement in symptoms. Patient does have a history of prior stroke x2 and reflux. No diet changes currently, no recurrent pneumonia, and no foods that she avoids due to texture. She is independently alternating bites and sips at meals to alleviate globus sensation. Medications: List not brought by patient, per patient report: cholesterol medication, blood pressure medication, gout medication, aspirin. Allergies: none reported, medical chart shows steroid allergy - Functional Status Prior Functional Status: INDEPENDENT: feeding - independent Current Functional Limitations: feeding - Subjective Patient/caregiver goal(s): safe swallow Cognitive-Linguistic Function: WNL Speech Intelligibility: WNL Current Nutritional Means: PO Current PO diet: Regular Current symptoms: c/o Globus sensation Pain: Patient reports, 0/5 - Objective Assessment: Upright, Left Lateral - Food Trials Used Food trials used: Thin liquids, Pureed, Regular The patient: Was Able to Self Feed - Oral-Motor Skills Dentition: Dentures-Upper Velo-pharyngeal function: Unremarkable - Assessment Oral prep: Normal Labial closure: Adequate Leakage: None Mastication: Adequate Lingual Movement: Normal Oral stage: Normal for this Procedure - Pharyngeal Stage Initiation of Pharyngeal Stage Reflex: Normal Decreased laryngeal elevation: No Reduced Velopharyngeal Closure: no Reduced pressure generation: No reduced tongue-based retraction: No Pre-swallow pooling in valleculae: None Pre-Swallow pooling in pyriforms: None Reduced Thyro-Hyoid approximation: No Reduced epiglottic excursion: No Reduced Cricopharyngeal opening: Yes Pharyngeal Stage Comments: Mild constriction at level of C6-7, resulting in mildly reduced movement of material through upper esophageal sphincter. Possible osteophyte at this level as well. - Fall Risk Assessment Medications/Conditions that increase fall risks include: Antidepressants, sedatives, anti-arrhythmic, diuretic, benzodiazipenes, neuroleptics. BP regulation problems, cardiac problems, balance or gait deficits, neurological problems. Fall Risk Actions Taken: No action needed - Behavioral Observations During evaluation process patient: was pleasant, was cooperative, able to answer questions - Treatment / Educational Needs: Treatment/Education Needs: Treatment consisted of patient education on the role of the Speech Pathologist. Patient's plan of care and golas were communicated as well as scheduling and attendance policies. Recommendations for initial home program were shared. Patient demonstrated understanding and verbalized agreement. - Impression/Summary Laryngeal Penetration: No Tracheal Aspiration: no Patient presents with: Normal swallow at eval Risk of Aspiration: Minimal Evaluation and Findings: No oral or pharyngeal phase deficits. Some reduced movement of material through upper esophagus at level of C6-7, possibly due to reduced opening of UES or due to osteophyte. No significant delay in movement of material. - Recommendations Solid diet recommendations: Regular Liquid Diet Modification: Thin Dysphagia therapy with [employer]ODUCTION [employer]: no Reflux Precautions: Taught to Patient Recommended techniques: Fully Upright During Meal, Alternate Bites/Sips Information, Precautions and Recommendations: Patient (Written), Patient (Verbal ) - Time Total Time: 20 - Plan of Care Strategies to optimize patient understanding include:: ongoing assessment of educational needs, implementation of educational strategies, and re-education. - - -: Thank you for the opportunity to work with this patient and his/her family. Should you have any questions about this patient's plan or progress, I can be reached at [phone]. Charge G Code? - - -: Yes ST F.L. Impairment Category - Rationale Based On Rationale Based On: Clin Find., Obj Measures - Swallowing Current G8996: CH 0% Impaired Goal G8997: CH 0% Impaired Discharge G8998: CH 0% Impaired
== END ==
LOC: RAD 08:22
PROVIDERS: ATTEND Internal Medicine Gastroenterology
DX: R13.12 Dysphagia, oropharyngeal phase (principal)
CPT/HCPCS: 74230; 92611; G8996; G8997; G8998

== ENCOUNTER → 2018-03-31 | Outpatient (CLI) | payer MEDICARE, MEDICAID ==
--- NOTE | 2018-03-31 16:19 | XCELERA REPORT ---
[address] [facility] [address] Lower Extremity Venous Evaluation Procedure: Color flow and duplex imaging bilaterally of the veins of the lower extremities as well as the Common Femoral veins. Right Sided Venous Evaluation Normal vessel filling wall to wall, compression and augmentation as well as Colour flow down to the infrageniculate veins. Left Sided Venous Evaluation Normal vessel filling wall to wall, compression and augmentation as well as Colour flow down to the infrageniculate veins. Interpretation Summary No duplex evidence of DVT or obstruction in the bilateral lower extremities. Name: IVY CLAIRE Age: 77 yrs Gender: Female : 1940 Patient Status: Outpatient Patient Location: [facility] Study Date: 03/31/2018 02:14 PM Reason For Study: SWELLING Ordering Physician: MARY RASHID Performed By: Lucian Santos : MARY RASHID > Eusebio Blanchard
== END ==
LOC: RAD 13:39
PROVIDERS: ATTEND Internal Medicine
DX: R22.43 Localized swelling, mass and lump, lower limb, bilateral (principal)
CPT/HCPCS: 93970

== ENCOUNTER 2018-08-10 12:29 | Inpatient (IN) | payer MEDICARE, MEDICAID ==
--- NOTE | 2018-08-10 13:52 | ER Document Report ---
ED Medical Screen (RME) - General Chief Complaint: Fall Stated Complaint: FALL/BODYACHE Time Seen by Provider: 08/10/18 13:42 Primary Care Provider: MARY RASHID MD [Primary Care Provider] - Follow up as needed Mode of Arrival: Wheelchair Information source: Patient TRAVEL OUTSIDE OF THE [place] IN LAST 30 DAYS: No - HPI Patient complains to provider of: FALL Notes: 08/10/18 13:50 Patient here with complaints of fall. The patient states she was walking last evening when her legs got weak on her causing her to buckle and fall. She states that since that time, she has had pain in the left leg. She denies striking her head, no loss of consciousness. She denies any neck, back, chest, abdominal pain. She is on blood thinning medications. Her biggest complaint is pain in the left lower extremity. She also states that she has had some intermittent blurred vision since this happened. She denies any chest pain or shortness of breath during this episode. She denies any unilateral numbness, tingling or weakness. Exam Nontoxic, no distress. Tenderness to palpation of the left hip, left knee, left foot. Normal neurovascular exam. Nonfocal neurological exam. No signs of head trauma. Heart sounds normal, lungs clear and equal throughout. Plan CBC, CMP, urine, troponin, coags, EKG, chest x-ray, head CT, x-rays of the left hip, knee, foot. An initial examination was made on the patient as part of the triage process, and it was determined a more comprehensive evaluation was necessary. Initial labs were ordered and patient was transferred to another provider in the ED who assumed care and finished evaluation and plan. - Related Data Allergies/Adverse Reactions: steriods Allergy (Uncoded 08/10/18 12:33) steroids Adverse Reaction (Intermediate, Uncoded 08/10/18 12:33) Past Medical History - Social History Chew tobacco use (# tins/day): No Frequency of alcohol use: None Drug Abuse: None - Past Medical History Cardiac Medical History: Reports: Hx Hypercholesterolemia, Hx Hypertension, Hx Pulmonary Embolism - 2 blood clots in her lungs a few years ago Denies: Hx Atrial Fibrillation, Hx Congestive Heart Failure, Hx Coronary Artery Disease, Hx Heart Attack, Hx Peripheral Vascular Disease, Hx Heart Murmur Pulmonary Medical History: Reports: Hx Bronchitis Denies: Hx Asthma, Hx COPD, Hx Pneumonia, Hx Respiratory Failure, Hx Sleep Apnea, Hx Tuberculosis Neurological Medical History: Denies: Hx Cerebrovascular Accident, Hx Seizures Endocrine Medical History: Reports: Hx Hypothyroidism Renal/ Medical History: Denies: Hx End Stage Renal Disease, Hx Peritoneal D ialysis Malignancy Medical History: Denies: Hx Leukemia, Hx Lung Cancer GI Medical History: Denies: Hx Hepatitis, Hx Hiatal Hernia, Hx Ulcer Musculoskeltal Medical History: Reports Hx Arthritis, Denies Hx Fibromyalgia, Reports Hx Gout Psychiatric Medical History: Reports: Hx Depression Infectious Medical History: Denies: Hx Hepatitis, Hx HIV Past Surgical History: Reports: Hx Orthopedic Surgery - R knee replacement. Denies: Hx Appendectomy, Hx Section, Hx Cholecystectomy, Hx Coronary Artery Bypass Graft, Hx Gastric Bypass Surgery, Hx Herniorrhaphy, Hx Hysterectomy, Hx Mastectomy, Hx Open Heart Surgery, Hx Pacemaker, Hx Tonsillectomy, Hx Tubal Ligation - Immunizations Hx Diphtheria, Pertussis, Tetanus Vaccination: Yes - <5 years History of Influenza Vaccine for 01/2017 - 06/2017 Season: Yes Influenza Administration Date for 01/2017 - 06/2017 Season: 01/10/17 Physical Exam - Vital signs Vitals: Temp Pulse Resp BP Pulse Ox 97.4 F 53 L 20 113/53 L 95 08/10/18 12:37 08/10/18 12:37 08/10/18 12:37 08/10/18 12:37 08/10/18 12:37 Course - Vital Signs Vital signs: Temp Pulse Resp BP Pulse Ox 97.4 F 53 L 20 113/53 L 95 08/10/18 12:37 08/10/18 12:37 08/10/18 12:37 08/10/18 12:37 08/10/18 12:37 Doctor's Discharge - Discharge Referrals: MARY RASHID MD [Primary Care Provider] - Follow up as needed
[2018-08-10 14:27] LABS: APPEARANCE,URINE CLEAR; BILIRUBIN,URINE NEGATIVE (NEGATIVE); COLOR,URINE YELLOW; GLUCOSE, URINE NEGATIVE (NEGATIVE); KETONES,URINE NEGATIVE (NEGATIVE); LEUKOCYTE ESTERASE,URINE NEGATIVE (NEGATIVE); NITRITE,URINE NEGATIVE (NEGATIVE); PROTEIN,URINE NEGATIVE (NEGATIVE); URINE SPECIFIC GRAVITY 1.011; UROBILINOGEN,URINE NEGATIVE mg/dL (<2.0)
--- NOTE | 2018-08-10 15:06 | RADIOLOGY REPORT (SQ) ---
EXAM DESCRIPTION: CT HEAD WITHOUT COMPLETED DATE/TIME: 08/10/2018 2:40 pm REASON FOR STUDY: WEAKNESS, FALL COMPARISON: None. TECHNIQUE: Axial images acquired through the brain without intravenous contrast. Images reviewed wi th bone, brain and subdural windows. Additional sagittal and coronal reconstructions were generated. Images stored on PACS. All CT scanners at this facility use dose modulation, iterative reconstruction, and/or weight based d osing when appropriate to reduce radiation dose to as low as reasonably achievable (ALARA). [facility]: Dose Right [facility]: CareDose [facility]: Dose Right [facility]: Teradose 4D [facility]: [employer] RADIATION DOSE: CT Rad equipment meets quality standard of care and radiation dose reduction techniq ues were employed. CTDIvol: 53.2 mGy. DLP: 1044 mGy-cm. mGy. LIMITATIONS: None. FINDINGS: VENTRICLES: Normal size and contour. CEREBRUM: No masses. No hemorrhage. No midline shift. No evidence for acute infarction. Normal gra y/white matter differentiation. No areas of low density in the white matter. CEREBELLUM: No masses. No hemorrhage. No alteration of density. No evidence for acute infarction. EXTRAAXIAL SPACES: No fluid collections. No masses. ORBITS AND GLOBE: No intra- or extraconal masses. Normal contour of globe without masses. CALVARIUM: No fracture. PARANASAL SINUSES: No fluid or mucosal thickening. SOFT TISSUES: No mass or hematoma. OTHER: No other significant finding. IMPRESSION: NORMAL BRAIN CT WITHOUT CONTRAST. EVIDENCE OF ACUTE STROKE: NO. COMMENT: Quality ID # [id number]: Final reports with documentation of one or more dose reduction techniques (e.g., Automated exposure control, adjustment of the mA and/or kV according to patient size, use of iterative reconstruction technique) TECHNICAL DOCUMENTATION: JOB ID: [id number] [employer]- All Rights Reserved Reading location - IP/workstation name: [email or web address]
--- NOTE | 2018-08-10 15:09 | RADIOLOGY REPORT (SQ) ---
EXAM DESCRIPTION: CHEST SINGLE VIEW COMPLETED DATE/TIME: 08/10/2018 2:35 pm REASON FOR STUDY: WEAKNESS, FALL COMPARISON: 04/20/2017 EXAM PARAMETERS: NUMBER OF VIEWS: One view. TECHNIQUE: Single frontal radiographic view of the chest acquired. RADIATION DOSE: NA LIMITATIONS: None. FINDINGS: LUNGS AND PLEURA: No opacities, masses or pneumothorax. No pleural effusion. MEDIASTINUM AND HILAR STRUCTURES: No masses. Contour normal. HEART AND VASCULAR STRUCTURES: Heart normal in size. Normal vasculature. BONES: No acute findings. HARDWARE: None in the chest. OTHER: No other significant finding. IMPRESSION: NO ACUTE RADIOGRAPHIC FINDING IN THE CHEST. TECHNICAL DOCUMENTATION: JOB ID: [id number] [employer]- All Rights Reserved Reading location - IP/workstation name: [email or web address]
--- NOTE | 2018-08-10 15:10 | RADIOLOGY REPORT (SQ) ---
EXAM DESCRIPTION: FOOT LEFT COMPLETE; HIP LEFT AP/LATERAL; KNEE LEFT 3 VIEWS COMPLETED DATE/TIME: 08/10/2018 2:35 pm REASON FOR STUDY: WEAKNESS, FALL COMPARISON: None. FINDINGS: Two views left hip: AP and frog lateral. No fracture appreciated. Degenerative hip join t space narrowing and osteophytes. SI joints look relatively intact. Symphysis looks minimally wide roxy, correlate with mechanism of injury. Three views left knee: Includes AP, lateral and tangential patellofemoral. Osteopenic. Relatively m ild medial joint space narrowing. Patellofemoral joint space narrowing with minimal spurring. No fr acture or bone lesion or effusion. No radiopaque foreign body identified. Three views left foot: Osteopenic. 2nd, 3rd, 4th metatarsal neck fractures. 2nd relatively nondisp laced. 3rd slightly angulated. 4th slightly laterally and inferiorly displaced. TECHNICAL DOCUMENTATION: JOB ID: [id number] Reading location - IP/workstation name: [email or web address]
--- NOTE | 2018-08-10 15:10 | RADIOLOGY REPORT (SQ) ---
EXAM DESCRIPTION: FOOT LEFT COMPLETE; HIP LEFT AP/LATERAL; KNEE LEFT 3 VIEWS COMPLETED DATE/TIME: 08/10/2018 2:35 pm REASON FOR STUDY: WEAKNESS, FALL COMPARISON: None. FINDINGS: Two views left hip: AP and frog lateral. No fracture appreciated. Degenerative hip join t space narrowing and osteophytes. SI joints look relatively intact. Symphysis looks minimally wide roxy, correlate with mechanism of injury. Three views left knee: Includes AP, lateral and tangential patellofemoral. Osteopenic. Relatively m ild medial joint space narrowing. Patellofemoral joint space narrowing with minimal spurring. No fr acture or bone lesion or effusion. No radiopaque foreign body identified. Three views left foot: Osteopenic. 2nd, 3rd, 4th metatarsal neck fractures. 2nd relatively nondisp laced. 3rd slightly angulated. 4th slightly laterally and inferiorly displaced. TECHNICAL DOCUMENTATION: JOB ID: [id number] Reading location - IP/workstation name: [email or web address]
--- NOTE | 2018-08-10 15:10 | RADIOLOGY REPORT (SQ) ---
EXAM DESCRIPTION: FOOT LEFT COMPLETE; HIP LEFT AP/LATERAL; KNEE LEFT 3 VIEWS COMPLETED DATE/TIME: 08/10/2018 2:35 pm REASON FOR STUDY: WEAKNESS, FALL COMPARISON: None. FINDINGS: Two views left hip: AP and frog lateral. No fracture appreciated. Degenerative hip join t space narrowing and osteophytes. SI joints look relatively intact. Symphysis looks minimally wide roxy, correlate with mechanism of injury. Three views left knee: Includes AP, lateral and tangential patellofemoral. Osteopenic. Relatively m ild medial joint space narrowing. Patellofemoral joint space narrowing with minimal spurring. No fr acture or bone lesion or effusion. No radiopaque foreign body identified. Three views left foot: Osteopenic. 2nd, 3rd, 4th metatarsal neck fractures. 2nd relatively nondisp laced. 3rd slightly angulated. 4th slightly laterally and inferiorly displaced. TECHNICAL DOCUMENTATION: JOB ID: [id number] Reading location - IP/workstation name: [email or web address]
[2018-08-10 15:18] LABS: ABSOLUTE EOSINOPHILS # (AUTO) 0.2 10^3/uL (0.0-0.6); ABSOLUTE LYMPHOCYTES (AUTO) 1.4 10^3/uL (0.5-4.7); ABSOLUTE MONOCYTES (AUTO) 0.4 10^3/uL (0.1-1.4); ABSOLUTE NEUT (AUTO) 2.7 10^3/uL (1.7-8.2); BASOPHILS % (AUTO) 0.8 % (0-2); EOSINOPHILS % (AUTO) 4.5 % (0-6); HEMATOCRIT 37.6 % (36.0-47.0); HEMOGLOBIN 11.9 g/dL (12.0-15.5); LYMPHOCYTES % (AUTO) 30.2 % (13-45); MEAN CORPUSCULAR HEMOGLOBIN 28.6 pg (27.0-33.4); MEAN CORPUSCULAR HGB CONC 31.7 g/dL (32.0-36.0); MEAN CORPUSCULAR VOLUME 90 fl (80-97); MONOCYTES % (AUTO) 8.1 % (3-13); PLATELET COUNT 149 10^3/uL (150-450); RED BLOOD COUNT 4.17 10^6/uL (3.72-5.28); RED CELL DISTRIBUTION WIDTH 18.9 % (11.5-14.0); SEGMENTED NEUTROPHILS % (AUTO) 56.4 % (42-78); TOTAL CELLS COUNTED % (AUTO) 100 %; WHITE BLOOD COUNT 4.7 10^3/uL (4.0-10.5)
[2018-08-10 15:21] LABS: INTERNATIONAL RATION (INR) 0.93; PARTIAL THROMBOPLASTIN TIME 33.6 SEC (23.5-35.8); PROTHROMBIN TIME 12.9 SEC (11.4-15.4)
[2018-08-10 15:36] LABS: ALANINE AMINOTRANSFERASE 22 U/L (9-52); ALKALINE PHOSPHATASE 74 U/L (38-126); ANION GAP 8 (5-19); ASPARTATE AMINO TRANSFERASE 27 U/L (14-36); BILIRUBIN,DIRECT 0.3 mg/dL (0.0-0.4); BILIRUBIN,TOTAL 0.4 mg/dL (0.2-1.3); BLOOD UREA NITROGEN 41 mg/dL (7-20); CALCIUM 11.6 mg/dL (8.4-10.2); CARBON DIOXIDE 24 mmol/L (22-30); CHLORIDE 112 mmol/L (98-107); GLUCOSE 98 mg/dL (75-110); SODIUM 143.8 mmol/L (137-145); TOTAL PROTEIN 7.2 g/dL (6.3-8.2)
[2018-08-10 15:39] LABS: POTASSIUM 6.2 mmol/L (3.6-5.0)
[2018-08-10] MEDS ORDERED: DEXTROSE 50%-WATER 25 GM/50 ML DISP.SYRIN IV ONE (15:43)
[2018-08-10] MEDS ORDERED: CALCIUM GLUCONATE 1000 MG/10 ML INJ IV ONE (15:43)
[2018-08-10] MEDS ORDERED: SODIUM POLYSTYRENE SULFONATE 15 GM/60 ML PO ONE (15:43)
[2018-08-10] MEDS ORDERED: INSULIN REG, HUMAN 100 UNIT/ML 3 ML VIAL (PYX) IV ONE (15:43)
[2018-08-10] MEDS ORDERED: ALBUTEROL SULFATE 0.083% NEB 2.5 MG/3 ML AMPUL NEB ONE (15:58)
[2018-08-10] MEDS ORDERED: NORMAL SALINE 1000 ML 1,000 ML IV ONE (15:59)
[2018-08-10] MEDS ORDERED: FENTANYL CITRATE INJ/PF 100 MCG/2 ML AMPUL IV ONE (16:00)
--- NOTE | 2018-08-10 16:13 | ER Document Report ---
ED General - General Chief Complaint: Fall Stated Complaint: FALL/BODYACHE Time Seen by Provider: 08/10/18 13:42 Mode of Arrival: Wheelchair Notes: Patient is a 77-year-old female that presents to the emergency department for chief complaint of fall, and foot pain. Patient states he had a mechanical fall in the bathroom, where she pivoted and twisted and fell, she states she says pain in her left foot at this time. She currently rates it as a 6 out of 10 described as a constant ache, in the forefoot. She denies hitting her head or injuring her neck on this fall. Denies any other pain at this time. Denies any numbness, weakness or tingling. She denies any loss of consciousness. She denies any recent lightheadedness, dizziness chest pain, shortness of breath, nausea, vomiting or abdominal pain since her fall. Past Medical History: Osteopenia, hypertension, chronic kidney disease Past Surgical History: Total knee arthroplasty Social History: Denies tobacco, alcohol or drug use. Family History: Reviewed and noncontributory for presenting illness Allergies: Reviewed, see documented allergy list. REVIEW OF SYSTEMS: Other than noted above, the 12 point review of systems was reviewed with the patient and were negative, all pertinent findings are included in the HPI. PHYSICAL EXAMINATION: Vital signs reviewed, nursing noted reviewed. GENERAL: Obese female, appears uncomfortable on exam HEAD: Atraumatic, normocephalic. EYES: Eyes appear normal, extraocular movements intact, sclera anicteric, conjunctiva are normal. ENT: nares patent, oropharynx clear without exudates. Moist mucous membranes. NECK: Normal range of motion, supple without lymphadenopathy, no midline tenderness LUNGS: Breath sounds clear to auscultation bilaterally and equal. No wheezes rales or rhonchi. HEART: Regular rate and rhythm without murmurs ABDOMEN: Soft, nontender, normoactive bowel sounds. No rebound, guarding, or rigidity. No masses appreciated. EXTREMITIES: The left foot is tender to palpate, particularly over the second through fifth metatarsals, no gross deformity noted, no significant ecchymosis, there is good cap refill distally in all digits, patient is able to move her toes. The ankle is mildly tender as well, the rest the patient's extremities are grossly unremarkable, nontender to palpate. NEUROLOGICAL: No focal neurological deficits. Moves all extremities spontaneously Motor and sensory grossly intact on exam. PSYCH: Normal mood, normal affect. SKIN: Warm, Dry, normal turgor, no rashes or lesions noted on exposed skin TRAVEL OUTSIDE OF THE [place] IN LAST 30 DAYS: No - Related Data Allergies/Adverse Reactions: steriods Allergy (Uncoded 08/10/18 12:33) steroids Adverse Reaction (Intermediate, Uncoded 08/10/18 12:33) Past Medical History - General Information source: Patient - Social History Smoking Status: Unknown if Ever Smoked Chew tobacco use (# tins/day): No Frequency of alcohol use: None Drug Abuse: None Family History: Reviewed & Not Pertinent Patient has suicidal ideation: No Patient has homicidal ideation: No - Past Medical History Cardiac Medical History: Reports: Hx Hypercholesterolemia, Hx Hypertension, Hx Pulmonary Embolism - 2 blood clots in her lungs a few years ago Denies: Hx Atrial Fibrillation, Hx Congestive Heart Failure, Hx Coronary Artery Disease, Hx Heart Attack, Hx Peripheral Vascular Disease, Hx Heart Murmur Pulmonary Medical History: Reports: Hx Bronchitis Denies: Hx Asthma, Hx COPD, Hx Pneumonia, Hx Respiratory Failure, Hx Sleep Apnea, Hx Tuberculosis Neurological Medical History: Denies: Hx Cerebrovascular Accident, Hx Seizures Endocrine Medical History: Reports: Hx Hypothyroidism Renal/ Medical History: Denies: Hx End Stage Renal Disease, Hx Peritoneal Dialysis Malignancy Medical History: Denies: Hx Leukemia, Hx Lung Cancer GI Medical History: Denies: Hx Hepatitis, Hx Hiatal Hernia, Hx Ulcer Musculoskeletal Medical History: Reports Hx Arthritis, Denies Hx Fibromyalgia, Reports Hx Gout Psychiatric Medical History: Reports: Hx Depression Infectious Medical History: Denies: Hx Hepatitis, Hx HIV Past Surgical History: Reports: Hx Orthopedic Surgery - R knee replacement. Denies: Hx Appendectomy, Hx Section, Hx Cholecystectomy, Hx Coronary Artery Bypass Graft, Hx Gastric Bypass Surgery, Hx Herniorrhaphy, Hx Hysterectomy, Hx Mastectomy, Hx Open Heart Surgery, Hx Pacemaker, Hx Tonsillec charanijt, Hx Tubal Ligation - Immunizations Hx Diphtheria, Pertussis, Tetanus Vaccination: Yes - <5 years Hx Pneumococcal Vaccination: 04/12/08 Physical Exam - Vital signs Vitals: Temp Pulse Resp BP Pulse Ox 97.4 F 53 L 20 113/53 L 95 08/10/18 12:37 08/10/18 12:37 08/10/18 12:37 08/10/18 12:37 08/10/18 12:37 Course - Re-evaluation Re-evalutation: Patient seen and examined vital signs reviewed. Laboratory data and imaging were ordered as appropriate for the patient's presenting symptoms and complaint, with consideration of any critical or life threatening conditions that may be associated with their obtained history and exam as noted above. Patient was treated with fentanyl for her pain, and she was given hyperkalemia cocktail, for a potassium of 6.2, patient noted to have slightly worse renal function from prior as well. The patient was re-evaluated and was stable, pain was improving, patient was splinted with a short leg posterior splint Evaluation was most consistent with multiple metatarsal fractures of the left foot, hyperkalemia, acute kidney injury. Results were discussed with the patient at this point after careful consideration I feel that that patient should be admitted to the hospital. This was discussed with the patient that it is in the best interest for their care to be admitted for further evaluation and management. Patient agreed with this plan of care. A call was placed to the admitted physician, Dr. Mcarthur who graciously accepted the patient onto their service. *Note is created using voice recognition software and may contain spelling, syntax or grammatical errors. Laboratory 08/10/18 08/10/18 08/10/18 14:00 14:44 14:44 WBC 4.7 RBC 4.17 Hgb 11.9 L Hct 37.6 MCV 90 MCH 28.6 MCHC 31.7 L RDW 18.9 H Plt Count 149 L Seg Neutrophils % 56.4 Lymphocytes % 30.2 Monocytes % 8.1 Eosinophils % 4.5 Basophils % 0.8 Absolute Neutrophils 2.7 Absolute Lymphocytes 1.4 Absolute Monocytes 0.4 Absolute Eosinophils 0.2 Absolute Basophils 0.0 PT INR APTT Sodium 143.8 Potassium 6.2 H* Chloride 112 H Carbon Dioxide 24 Anion Gap 8 BUN 41 H Creatinine 2.67 H Est GFR ( Amer) 21 L Est GFR (Non-Af Amer) 17 L Glucose 98 Calcium 11.6 H Total Bilirubin 0.4 Direct Bilirubin 0.3 Neonat Total Bilirubin Not Reportable Neonat Direct Bilirubin Not Reportable Neonat Indirect Bili Not Reportable AST 27 ALT 22 Alkaline Phosphatase 74 Troponin I Total Protein 7.2 Albumin 4.0 Urine Color YELLOW Urine Appearance CLEAR Urine pH 5.0 Ur Specific [place] 1.011 Urine Protein NEGATIVE Urine Glucose (UA) NEGATIVE Urine Ketones NEGATIVE Urine Blood NEGATIVE Urine Nitrite NEGATIVE Urine Bilirubin NEGATIVE Urine Urobilinogen NEGATIVE Ur Leukocyte Esterase NEGATIVE Urine WBC (Auto) 2 Urine RBC (Auto) 0 U Hyaline Cast (Auto) 1 Squamous Epi Cells Auto 3 Urine Mucus (Auto) RARE Urine Ascorbic Acid NEGATIVE 08/10/18 08/10/18 14:44 14:44 WBC RBC Hgb Hct MCV MCH MCHC RDW Plt Count Seg Neutrophils % Lymphocytes % Monocytes % Eosinophils % Basophils % Absolute Neutrophils Absolute Lymphocytes Absolute Monocytes Absolute Eosinophils Absolute Basophils PT 12.9 INR 0.93 APTT 33.6 Sodium Potassium Chloride Carbon Dioxide Anion Gap BUN Creatinine Est GFR ( Amer) Est GFR (Non-Af Amer) Glucose Calcium Total Bilirubin Direct Bilirubin Neonat Total Bilirubin Neonat Direct Bilirubin Neonat Indirect Bili AST ALT Alkaline Phosphatase Troponin I < 0.012 Total Protein Albumin Urine Color Urine Appearance Urine pH Ur Specific [place] Urine Protein Urine Glucose (UA) Urine Ketones Urine Blood Urine Nitrite Urine Bilirubin Urine Urobilinogen Ur Leukocyte Esterase Urine WBC (Auto) Urine RBC (Auto) U Hyaline Cast (Auto) Squamous Epi Cells Auto Urine Mucus (Auto) Urine Ascorbic Acid Chest X-Ray 08/10/18 13:49 IMPRESSION: NO ACUTE RADIOGRAPHIC FINDING IN THE CHEST. Head CT 08/10/18 13:49 IMPRESSION: NORMAL BRAIN CT WITHOUT CONTRAST. EVIDENCE OF ACUTE STROKE: NO. 08/11/18 22:27 - Vital Signs Vital signs: Temp Pulse Resp BP Pulse Ox 97.4 F 73 16 142/60 H 99 08/11/18 19:07 08/11/18 19:07 08/11/18 19:07 08/11/18 19:07 08/11/18 19:07 - Laboratory Result Diagrams: 08/10/18 14:44 08/10/18 22:14 Laboratory results interpreted by me: 08/10/18 08/10/18 14:44 14:44 Hgb 11.9 L MCHC 31.7 L RDW 18.9 H Plt Count 149 L Potassium 6.2 H* Chloride 112 H BUN 41 H Creatinine 2.67 H Est GFR ( Amer) 21 L Est GFR (Non-Af Amer) 17 L Calcium 11.6 H Procedures - Immobilization Left Leg Pre-Proc Neuro Vasc Exam: Normal Immobilizer type: Short Leg Posterior Performed by: PCT Post-Proc Neuro Vasc Exam: Normal Alignment checked and good: Yes Critical Care Note - Critical Care Note Total time excluding time spent on procedures (mins): 35 Comments: Critical care time 35 minutes exclusive from separate billable procedures for a patient requiring complex medical decision making, and high potential for clinical deterioration. The patient with hyperkalemia requiring treatment. Time spent obtaining history from patient or surrogate, discussions with consultants, development of treatment plan with patient or surrogate, evaluation of patient's response to treatment, examination of patient, ordering and performing t reatments and interventions, ordering and review of laboratory studies, re- evaluation of patient's condition, ordering and review of radiographic studies and review of old charts Discharge - Discharge Clinical Impression: Hyperkalemia, LIANET (acute kidney injury) Metatarsal fracture Qualifiers: Encounter type: initial encounter Metatarsal bone: second Fracture type: closed Fracture alignment: nondisplaced Laterality: left Qualified Code(s): S92.325A - Nondisplaced fracture of second metatarsal bone, left foot, initial encounter for closed fracture Condition: Stable Disposition: ADMITTED INPATIENT [facility]
--- NOTE | 2018-08-10 21:50 | PDOC H&P ---
History of Present Illness Admission Date/PCP: 08/10/18 17:34 MARY RASHID MD History of Present Illness: IVY CLAIRE is a 77 year old female,She has a history of chronic kidney d isease stage 3 ,she lost her balance and twisted her left foot and ankle and sustained multiple fracture of the bones of the left foot .X-Ray of the left foot demonstrated fracture of 2nd,3rd and 4th metatarsal neck fracture.She was also found to have acute kidney injury ,she has a history of chronic kidney disease ,stage 3 ,this is probably pre-renal acute kidney injury.I saw her in the emergency room ,she complains of pain of the left foot Past Medical History Cardiac Medical History: Reports: Hyperlipidema, Hypertension, Pulmonary Embolism - 2 blood clots in her lungs a few years ago Pulmonary Medical History: Reports: Bronchitis Endocrine Medical History: Reports: Hypothyroidism Renal/ Medical History: Reports: Chronic Kidney Disease, Other - CKD STAGE 3 Musculoskeltal Medical History: Reports: Arthritis, Gout Psychiatric Medical History: Reports: Depression Hematology: Reports: Anemia Past Surgical History Past Surgical History: Reports: Orthopedic Surgery - R knee replacement Social History Smoking Status: Unknown if Ever Smoked Frequency of Alcohol Use: None Hx Recreational Drug Use: No Drugs: None Hx Prescription Drug Abuse: No Family History Family History: Reviewed & Not Pertinent Parental Family History Reviewed: Yes Children Family History Reviewed: Yes Sibling(s) Family History Reviewed.: Yes Medication/Allergy Home Medications: Allopurinol [Zyloprim 100 mg Tablet] 100 mg PO FORMERLY [facility], 1928–1983 08/10/18 Atorvastatin Calcium [Lipitor 10 mg Tablet] 10 mg PO FOR[facility]LY [facility], 1928–1983 08/10/18 Calcitriol [Rocaltrol 0.5 mcg Capsule] 0.5 mcg PO M 08/10/18 Ferrous Sulfate [Feosol 325 mg Tablet] 325 mg PO QHS 08/10/18 Gabapentin [Neurontin 300 mg Capsule] 300 mg PO Q8 08/10/18 Levothyroxine Sodium [Synthroid 0.075 mg Tablet] 0.075 mg PO Q6AM 08/10/18 Metoprolol Succinate [Toprol Xl] 200 mg PO Q6AM 08/10/18 Olmesartan/Amlodipin/Hcthiazid [Tribenzor 40-5-25 mg Tablet] 1 tab PO FOR[facility]LY [facility], 1928–1983 08/10/18 Sertraline HCl [Zoloft 50 mg Tablet] 50 mg PO QAM 08/10/18 Allergies/Adverse Reactions: steriods Allergy (Uncoded 08/10/18 12:33) steroids Adverse Reaction (Intermediate, Uncoded 08/10/18 12:33) Review of Systems Constitutional: ABSENT: chills, fever(s), headache(s), weight gain, weight loss Eyes: ABSENT: visual disturbances Ears: ABSENT: hearing changes Cardiovascular: ABSENT: chest pain, dyspnea on exertion, edema, orthropnea, palpitations Respiratory: ABSENT: cough, hemoptysis Gastrointestinal: ABSENT: abdominal pain, constipation, diarrhea, hematemesis, hematochezia, nausea, vomiting Genitourinary: ABSENT: dysuria, hematuria Musculoskeletal: PRESENT: other - Pain of left ankle Integumentary: ABSENT: rash, wounds Neurological: ABSENT: abnormal gait, abnormal speech, confusion, dizziness, focal weakness, syncope Psychiatric: ABSENT: anxiety, depression, homidical ideation, suicidal ideation Endocrine: ABSENT: cold intolerance, heat intolerance, menstrual abnormalities, polydipsia, polyuria Hematologic/Lymphatic: ABSENT: easy bleeding, easy bruising, lymphadenopathy Physical Exam Vital Signs: Temp Pulse Resp BP Pulse Ox 97.4 F 53 L 20 113/53 L 95 08/10/18 12:37 08/10/18 12:37 08/10/18 12:37 08/10/18 12:37 08/10/18 12:37 Intake & Output 08/09/18 08/10/18 08/11/18 06:59 06:59 06:59 Weight 104.4 kg General appearance: PRESENT: obese Head exam: PRESENT: atraumatic, normocephalic Eye exam: PRESENT: conjunctiva pink, EOMI, PERRLA Ear exam: PRESENT: normal external ear exam Neck exam: PRESENT: full ROM Respiratory exam: PRESENT: clear to auscultation heidi Cardiovascular exam: PRESENT: RRR, +S1, +S2 Vascular exam: PRESENT: normal capillary refill GI/Abdominal exam: PRESENT: normal bowel sounds, soft Rectal exam: PRESENT: deferred Musculoskeletal exam: PRESENT: tenderness - ,of the left foot Neurological exam: PRESENT: alert, awake, oriented to person, oriented to place, oriented to time, oriented to situation, CN II-XII grossly intact Psychiatric exam: PRESENT: appropriate affect, normal mood Skin exam: PRESENT: dry, intact, warm Results Laboratory Results: 08/10/18 14:44 08/10/18 14:44 08/10/18 08/10/18 08/10/18 14:00 14:44 14:44 WBC 4.7 RBC 4.17 Hgb 11.9 L Hct 37.6 MCV 90 MCH 28.6 MCHC 31.7 L RDW 18.9 H Plt Count 149 L Seg Neutrophils % 56.4 Lymphocytes % 30.2 Monocytes % 8.1 Eosinophils % 4.5 Basophils % 0.8 Absolute Neutrophils 2.7 Absolute Lymphocytes 1.4 Absolute Monocytes 0.4 Absolute Eosinophils 0.2 Absolute Basophils 0.0 Sodium 143.8 Potassium 6.2 H* Chloride 112 H Carbon Dioxide 24 Anion Gap 8 BUN 41 H Creatinine 2.67 H Est GFR ( Amer) 21 L Est GFR (Non-Af Amer) 17 L Glucose 98 Calcium 11.6 H Total Bilirubin 0.4 AST 27 ALT 22 Alkaline Phosphatase 74 Total Protein 7.2 Albumin 4.0 Urine Color YELLOW Urine Appearance CLEAR Urine pH 5.0 Ur Specific [place] 1.011 Urine Protein NEGATIVE Urine Glucose (UA) NEGATIVE Urine Ketones NEGATIVE Urine Blood NEGATIVE Urine Nitrite NEGATIVE Ur Leukocyte Esterase NEGATIVE Urine WBC (Auto) 2 Urine RBC (Auto) 0 08/10/18 14:44 Troponin I < 0.012 Impressions: Chest X-Ray 08/10/18 13:49 IMPRESSION: NO ACUTE RADIOGRAPHIC FINDING IN THE CHEST. Head CT 08/10/18 13:49 IMPRESSION: NORMAL BRAIN CT WITHOUT CONTRAST. EVIDENCE OF ACUTE STROKE: NO. Assessment & Plan - Diagnosis (1) Acute kidney injury Is this a current diagnosis for this admission?: Yes Plan: This is probably pre-renal dehydration ,start IV fkuid (2) Fracture of metatarsal of left foot, closed Qualifiers: Encounter type: initial encounter Metatarsal bone: unspecified metatarsal Fracture alignment: nondisplaced Qualified Code(s): S92.302A - Fracture of un specified metatarsal bone(s), left foot, initial encounter for closed fracture Is this a current diagnosis for this admission?: Yes
[2018-08-10] MEDS: FERROUS SULFATE 325 MG TABLET PO SCH (22:10)
[2018-08-10] MEDS: GABAPENTIN 300 MG CAPSULE PO SCH (22:10)
[2018-08-10 22:59] LABS: ALANINE AMINOTRANSFERASE 30 U/L (9-52); ALBUMIN 3.5 g/dL (3.5-5.0); ALKALINE PHOSPHATASE 67 U/L (38-126); ANION GAP 7 (5-19); ASPARTATE AMINO TRANSFERASE 24 U/L (14-36); BILIRUBIN,DIRECT 0.3 mg/dL (0.0-0.4); BILIRUBIN,TOTAL 0.3 mg/dL (0.2-1.3); BLOOD UREA NITROGEN 37 mg/dL (7-20); CALCIUM 11.3 mg/dL (8.4-10.2); CARBON DIOXIDE 22 mmol/L (22-30); CHLORIDE 113 mmol/L (98-107); GLUCOSE 138 mg/dL (75-110); POTASSIUM 5.3 mmol/L (3.6-5.0); SODIUM 141.5 mmol/L (137-145); TOTAL PROTEIN 6.7 g/dL (6.3-8.2)
--- NOTE | 2018-08-10 23:13 | EKG REPORT ---
SEVERITY:- BORDERLINE ECG - SINUS RHYTHM PROBABLE LEFT ATRIAL ABNORMALITY : Confirmed by: Lianna Ramirez 10-Aug-2018 23:11:43
[2018-08-10] MEDS: NORMAL SALINE 1000 ML 1,000 ML IV PRN (23:21)
[2018-08-11] MEDS: GABAPENTIN 300 MG CAPSULE PO SCH ×3 (05:19→21:04)
[2018-08-11] MEDS: LEVOTHYROXINE SODIUM 0.075 MG TABLET PO SCH (05:19)
[2018-08-11] MEDS: ALLOPURINOL 100 MG TABLET PO SCH (07:58)
[2018-08-11] MEDS: SERTRALINE HCL 50 MG TABLET PO SCH (07:59)
[2018-08-11] MEDS: ATORVASTATIN CALCIUM 10 MG TABLET PO SCH (07:59)
[2018-08-11] MEDS ORDERED: (PENDING PHARMACY ID) (Calcitriol [Rocaltrol 0.5 Mcg Capsule] 0.5 MCG) PO SCH (08:00)
[2018-08-11] MEDS: ACETAMINOPHEN 325 MG TABLET PO PRN ×2 (08:20→21:04)
[2018-08-11] MEDS: CALCITRIOL 0.25 MCG CAPSULE PO SCH (09:52)
--- NOTE | 2018-08-11 13:30 | PDOC CONSULTATION ---
History of Present Illness Admission Date/PCP: 08/10/18 17:34 MARY RASHID MD Patient complains of: Left foot pain History of Present Illness: IVY CLAIRE is a 77 year old female who states given her knee pain and instability she sustained a fall twisting her ankle and left foot. At that time she was unable to weight-bear. Was brought to emergency room x-rays demonstrate fracture. States her pain has improved since placed in the brace but is unable to ambulate secondary to the pain and inability to place weight. Patient denies numbness or tingling. Pain 07/20. Past Medical History Cardiac Medical History: Reports: Hyperlipidema, Hypertension, Pulmonary Embolism - 2 blood clots in her lungs a few years ago Denies: Atrial Fibrillation, Congestive Heart Failure, Coronary Artery Diseas e, Myocardial Infarction, Peripheral Vascular Disease, Heart Murmur Pulmonary Medical History: Reports: Bronchitis Denies: Asthma, Chronic Obstructive Pulmonary Disease (COPD), Pneumonia, Respiratory Failure, Sleep Apnea, Tuberculosis Neurological Medical History: Denies: Seizures Endocrine Medical History: Reports: Hypothyroidism Renal/ Medical History: Denies: End Stage Renal Disease Malignancy Medical History: Denies: Leukemia, Lung Cancer GI Medical History: Denies: Hepatitis, Hiatal Hernia Musculoskeltal Medical History: Reports: Arthritis, Gout Denies: Fibromyalgia Psychiatric Medical History: Reports: Depression Hematology: Reports: Anemia Denies: Hemophilia, Sickle Cell Disease Infectious Medical History: Denies: HIV Past Surgical History Past Surgical History: Reports: Orthopedic Surgery - R knee replacement Denies: Amputation, Appendectomy, Section, Cholecystectomy, Coronary Artery Bypass Graft, Gastric Bypass Surgery, Herniorrhaphy, Hysterectomy, Mastectomy, Pacemaker, Tonsillectomy, Tubal Ligation Social History Smoking Status: Unknown if Ever Smoked Cigarettes Packs Per Day: 1 Number of Years Smokin Last Time Smoked: 1984 Frequency of Alcohol Use: None Hx Recreational Drug Use: No Drugs: None Hx Prescription Drug Abuse: No Family History Family History: Reviewed & Not Pertinent Parental Family History Reviewed: No Children Family History Reviewed: No Sibling(s) Family History Reviewed.: No Medication/Allergy Home Medications: Allopurinol [Zyloprim 100 mg Tablet] 100 mg PO QAM 08/10/18 Atorvastatin Calcium [Lipitor 10 mg Tablet] 10 mg PO QAM 08/10/18 Calcitriol [Rocaltrol 0.5 mcg Capsule] 0.5 mcg PO QAM 08/10/18 Ferrous Sulfate [Feosol 325 mg Tablet] 325 mg PO QHS 08/10/18 Gabapentin [Neurontin 300 mg Capsule] 300 mg PO Q8 08/10/18 Levothyroxine Sodium [Synthroid 0.075 mg Tablet] 0.075 mg PO Q6AM 08/10/18 Metoprolol Succinate [Toprol Xl] 200 mg PO Q6AM 08/10/18 Olmesartan/Amlodipin/Hcthiazid [Tribenzor 40-5-25 mg Tablet] 1 tab PO QAM 08/10/18 Sertraline HCl [Zoloft 50 mg Tablet] 50 mg PO QAM 08/10/18 Allergies/Adverse Reactions: steriods Allergy (Uncoded 08/10/18 12:33) steroids Adverse Reaction (Intermediate, Uncoded 08/10/18 12:33) Review of Systems Constitutional: ABSENT: chills, fever(s), headache(s), weight gain, weight loss Eyes: ABSENT: visual disturbances Ears: ABSENT: hearing changes Cardiovascular: ABSENT: chest pain, dyspnea on exertion, edema, orthropnea, palpitations Respiratory: ABSENT: cough, hemoptysis Gastrointestinal: ABSENT: abdominal pain, constipation, diarrhea, hematemesis, hematochezia, nausea, vomiting Genitourinary: ABSENT: dysuria, hematuria Musculoskeletal: PRESENT: as per HPI Integumentary: ABSENT: rash, wounds Neurological: ABSENT: abnormal gait, abnormal speech, confusion, dizziness, focal weakness, syncope Psychiatric: ABSENT: anxiety, depression, homidical ideation, suicidal ideation Endocrine: ABSENT: cold intolerance, heat intolerance, menstrual abnormalities, polydipsia, polyuria Hematologic/Lymphatic: ABSENT: easy bleeding, easy bruising, lymphadenopathy Physical Exam Vital Signs: Temp Pulse Resp BP Pulse Ox 97.9 F 64 17 122/57 L 98 08/11/18 11:18 08/11/18 11:18 08/11/18 11:18 08/11/18 11:18 08/11/18 11:18 Intake & Output 08/10/18 08/11/18 08/12/18 06:59 06:59 06:59 Intake Total 1000 Balance 1000 Weight 106 kg General appearance: PRESENT: morbidly obese, well-developed, well-nourished Head exam: PRESENT: atraumatic, normocephalic Eye exam: PRESENT: conjunctiva pink, EOMI, PERRLA. ABSENT: scleral icterus Ear exam: PRESENT: normal external ear exam Mouth exam: PRESENT: moist, tongue midline Neck exam: PRESENT: full ROM. ABSENT: carotid bruit, JVD, lymphadenopathy, thyromegaly Cardiovascular exam: PRESENT: RRR. ABSENT: diastolic murmur, rubs, systolic murmur Pulses: PRESENT: normal dorsalis pedis pul, +2 pedal pulses bilateral Vascular exam: PRESENT: normal capillary refill GI/Abdominal exam: PRESENT: normal bowel sounds, soft. ABSENT: distended, guarding, mass, organolmegaly, rebound, tenderness Rectal exam: PRESENT: deferred Musculoskeletal exam: PRESENT: other - Left lower extremity: Splint dry/intact, intact flexion/extension of all digits. Capillary refill less than 2 seconds. No sensory deficits. No evidence of skin breakdown. Instability noted along the left knee with crepitus upon range of motion. No pain with hip internal/external rotation. Neurological exam: PRESENT: alert, awake, oriented to person, oriented to place, oriented to time, oriented to situation, CN II-XII grossly intact. ABSENT: motor sensory deficit Psychiatric exam: PRESENT: appropriate affect, normal mood. ABSENT: homicidal ideation, suicidal ideation Skin exam: PRESENT: dry, intact, warm. ABSENT: cyanosis, rash Results Laboratory Results: 08/10/18 14:44 08/10/18 22:14 08/10/18 08/10/18 08/10/18 14:00 14:44 14:44 WBC 4.7 RBC 4.17 Hgb 11.9 L Hct 37.6 MCV 90 MCH 28.6 MCHC 31.7 L RDW 18.9 H Plt Count 149 L Seg Neutrophils % 56.4 Lymphocytes % 30.2 Monocytes % 8.1 Eosinophils % 4.5 Basophils % 0.8 Absolute Neutrophils 2.7 Absolute Lymphocytes 1.4 Absolute Monocytes 0.4 Absolute Eosinophils 0.2 Absolute Basophils 0.0 Sodium 143.8 Potassium 6.2 H* Chloride 112 H Carbon Dioxide 24 Anion Gap 8 BUN 41 H Creatinine 2.67 H Est GFR ( Amer) 21 L Est GFR (Non-Af Amer) 17 L Glucose 98 Calcium 11.6 H Total Bilirubin 0.4 AST 27 ALT 22 Alkaline Phosphatase 74 Total Protein 7.2 Albumin 4.0 Urine Color YELLOW Urine Appearance CLEAR Urine pH 5.0 Ur Specific [place] 1.011 Urine Protein NEGATIVE Urine Glucose (UA) NEGATIVE Urine Ketones NEGATIVE Urine Blood NEGATIVE Urine Nitrite NEGATIVE Ur Leukocyte Esterase NEGATIVE Urine WBC (Auto) 2 Urine RBC (Auto) 0 08/10/18 22:14 WBC RBC Hgb Hct MCV MCH MCHC RDW Plt Count Seg Neutrophils % Lymphocytes % Monocytes % Eosinophils % Basophils % Absolute Neutrophils Absolute Lymphocytes Absolute Monocytes Absolute Eosinophils Absolute Basophils Sodium 141.5 Potassium 5.3 H Chloride 113 H Carbon Dioxide 22 Anion Gap 7 BUN 37 H Creatinine 2.25 H Est GFR ( Amer) 26 L Est GFR (Non-Af Amer) 21 L Glucose 138 H Calcium 11.3 H Total Bilirubin 0.3 AST 24 ALT 30 Alkaline Phosphatase 67 Total Protein 6.7 Albumin 3.5 Urine Color Urine Appearance Urine pH Ur Specific [place] Urine Protein Urine Glucose (UA) Urine Ketones Urine Blood Urine Nitrite Ur Leukocyte Esterase Urine WBC (Auto) Urine RBC (Auto) 08/10/18 14:44 Troponin I < 0.012 Impressions: Chest X-Ray 08/10/18 13:49 IMPRESSION: NO ACUTE RADIOGRAPHIC FINDING IN THE CHEST. Head CT 08/10/18 13:49 IMPRESSION: NORMAL BRAIN CT WITHOUT CONTRAST. EVIDENCE OF ACUTE STROKE: NO. Status: Image reviewed by me - I have reviewed patient's radiographs of the left foot, knee and hip. Demonstrate nondisplaced fractures of the second, third and fourth metatarsal necks. Questionable acute versus chronic fracture of the pubic symphysis. No evidence of pelvic malalignment Assessment & Plan - Diagnosis (1) Metatarsal fracture Qualifiers: Encounter type: initial encounter Metatarsal bone: second Fracture type: closed Fracture alignment: nondisplaced Laterality: left Qualified Code(s): S92.325A - Nondisplaced fracture of second metatarsal bone, left foot, initial encounter for closed fracture Is this a current diagnosis for this admission?: Yes Plan: Patient sustained a nondisplaced second, third and fourth metatarsal neck fractures without displacement. We will treat the patient nonoperatively will continue splint. She will follow-up as an outpatient at which point will transition to pneumatic walking boot. Once radiographs demonstrate healing patient will begin weightbearing. Radiographs of the hip and pelvis demonstrate questionable pubic symphysis involvement this may be acute on chronic or chronic in nature either way I feel this is treated nonoperatively but patient will continue nonweightbearing on the left lower extremity.
[2018-08-11] MEDS: NORMAL SALINE 1000 ML 1,000 ML IV PRN (14:12)
[2018-08-11] MEDS: FERROUS SULFATE 325 MG TABLET PO SCH (21:04)
--- NOTE | 2018-08-11 22:22 | PDOC PROGRESS REPORT ---
Subjective Progress Note for:: 08/11/18 Subjective:: she was seen by the bedside she was seen by orthopedic no surgical intervention recommended for the fracture foot bones Reason For Visit: HYPERKALEMIA Physical Exam Vital Signs: Temp Pulse Resp BP Pulse Ox 97.4 F 73 16 142/60 H 99 08/11/18 19:07 08/11/18 19:07 08/11/18 19:07 08/11/18 19:07 08/11/18 19:07 Intake & Output 08/10/18 08/11/18 08/12/18 06:59 06:59 06:59 Intake Total 1000 1563 Balance 1000 1563 Weight 106 kg General appearance: PRESENT: no acute distress Eye exam: PRESENT: PERRLA Respiratory exam: PRESENT: clear to auscultation heidi Cardiovascular exam: PRESENT: +S1, +S2 GI/Abdominal exam: PRESENT: soft Neurological exam: PRESENT: alert Results Laboratory Results: 08/10/18 14:44 08/10/18 22:14 08/10/18 22:14 Sodium 141.5 Potassium 5.3 H Chloride 113 H Carbon Dioxide 22 Anion Gap 7 BUN 37 H Creatinine 2.25 H Est GFR ( Amer) 26 L Est GFR (Non-Af Amer) 21 L Glucose 138 H Calcium 11.3 H Total Bilirubin 0.3 AST 24 ALT 30 Alkaline Phosphatase 67 Total Protein 6.7 Albumin 3.5 08/10/18 14:44 Troponin I < 0.012 Impressions: Chest X-Ray 08/10/18 13:49 IMPRESSION: NO ACUTE RADIOGRAPHIC FINDING IN THE CHEST. Head CT 08/10/18 13:49 IMPRESSION: NORMAL BRAIN CT WITHOUT CONTRAST. EVIDENCE OF ACUTE STROKE: NO. Assessment & Plan - Diagnosis (1) Acute kidney injury Is this a current diagnosis for this admission?: Yes Plan: continue treatment (2) Fracture of metatarsal of left foot, closed Qualifiers: Encounter type: initial encounter Metatarsal bone: unspecified metatarsal Fracture alignment: nondisplaced Qualified Code(s): S92.302A - Fracture of unspecified metatarsal bone(s), left foot, initial encounter for closed fracture Is this a current diagnosis for this admission?: Yes
[2018-08-12] MEDS: NORMAL SALINE 1000 ML 1,000 ML IV PRN ×2 (03:51→18:42)
[2018-08-12] MEDS: GABAPENTIN 300 MG CAPSULE PO SCH ×3 (05:14→21:31)
[2018-08-12] MEDS: LEVOTHYROXINE SODIUM 0.075 MG TABLET PO SCH (05:14)
[2018-08-12] MEDS: ACETAMINOPHEN 325 MG TABLET PO PRN ×2 (05:28→14:34)
[2018-08-12] MEDS: SERTRALINE HCL 50 MG TABLET PO SCH (08:31)
[2018-08-12] MEDS: ATORVASTATIN CALCIUM 10 MG TABLET PO SCH (08:31)
[2018-08-12] MEDS: ALLOPURINOL 100 MG TABLET PO SCH (08:31)
[2018-08-12] MEDS: TRAMADOL HCL 50 MG TABLET PO PRN (09:55)
[2018-08-12] MEDS: CALCITRIOL 0.25 MCG CAPSULE PO SCH (09:56)
[2018-08-12] MEDS: POLYETHYLENE GLYCOL 3350 POWDER 17 GM/1 PACKET PO SCH (09:56)
[2018-08-12] MEDS ORDERED: BISACODYL 5 MG TABEC PO ONE (10:00)
--- NOTE | 2018-08-12 20:18 | PDOC PROGRESS REPORT ---
Subjective Progress Note for:: 08/12/18 Subjective:: Patient seen by the bedside ,she has bowel movement in response to dulcolax.,she complain of pain of the left foot Reason For Visit: HYPERKALEMIA Physical Exam Vital Signs: Temp Pulse Resp BP Pulse Ox 97.2 F 95 20 111/52 L 96 08/12/18 19:19 08/12/18 19:19 08/12/18 19:19 08/12/18 19:19 08/12/18 19:19 Intake & Output 08/11/18 08/12/18 08/13/18 06:59 06:59 06:59 Intake Total 1000 2519 1300 Output Total 200 Balance 1000 2519 1100 Weight 106 kg 105.3 kg General appearance: PRESENT: no acute distress Eye exam: PRESENT: PERRLA Respiratory exam: PRESENT: clear to auscultation heidi Cardiovascular exam: PRESENT: +S1, +S2 GI/Abdominal exam: PRESENT: soft Neurological exam: PRESENT: alert Results Laboratory Results: 08/10/18 14:44 08/10/18 22:14 08/10/18 14:44 Troponin I < 0.012 Impressions: Chest X-Ray 08/10/18 13:49 IMPRESSION: NO ACUTE RADIOGRAPHIC FINDING IN THE CHEST. Head CT 08/10/18 13:49 IMPRESSION: NORMAL BRAIN CT WITHOUT CONTRAST. EVIDENCE OF ACUTE STROKE: NO. Assessment & Plan - Diagnosis (1) Acute kidney injury Is this a current diagnosis for this admission?: Yes Plan: continue present hydration (2) Fracture of metatarsal of left foot, closed Qualifiers: Encounter type: initial encounter Metatarsal bone: unspecified metatarsal Fracture alignment: nondisplaced Qualified Code(s): S92.302A - Fracture of unspecified metatarsal bone(s), left foot, initial encounter for closed fracture Is this a current diagnosis for this admission?: Yes Plan: per orthopedics recommendation
[2018-08-12 20:47] LABS: ABSOLUTE BASOPHILS # (AUTO) 0.1 10^3/uL (0.0-0.2); ABSOLUTE EOSINOPHILS # (AUTO) 0.3 10^3/uL (0.0-0.6); ABSOLUTE LYMPHOCYTES (AUTO) 1.8 10^3/uL (0.5-4.7); ABSOLUTE MONOCYTES (AUTO) 0.4 10^3/uL (0.1-1.4); ABSOLUTE NEUT (AUTO) 2.1 10^3/uL (1.7-8.2); BASOPHILS % (AUTO) 1.1 % (0-2); EOSINOPHILS % (AUTO) 5.9 % (0-6); HEMOGLOBIN 10.9 g/dL (12.0-15.5); LYMPHOCYTES % (AUTO) 39.1 % (13-45); MEAN CORPUSCULAR HEMOGLOBIN 28.7 pg (27.0-33.4); MEAN CORPUSCULAR VOLUME 90 fl (80-97); MONOCYTES % (AUTO) 8.7 % (3-13); PLATELET COUNT 124 10^3/uL (150-450); RED BLOOD COUNT 3.79 10^6/uL (3.72-5.28); RED CELL DISTRIBUTION WIDTH 19.3 % (11.5-14.0); SEGMENTED NEUTROPHILS % (AUTO) 45.2 % (42-78); TOTAL CELLS COUNTED % (AUTO) 100 %; WHITE BLOOD COUNT 4.6 10^3/uL (4.0-10.5)
[2018-08-12 21:04] LABS: ALANINE AMINOTRANSFERASE 17 U/L (9-52); ALKALINE PHOSPHATASE 61 U/L (38-126); ASPARTATE AMINO TRANSFERASE 19 U/L (14-36); BILIRUBIN,DIRECT 0.3 mg/dL (0.0-0.4); BILIRUBIN,TOTAL 0.3 mg/dL (0.2-1.3); BLOOD UREA NITROGEN 17 mg/dL (7-20); CALCIUM 10.7 mg/dL (8.4-10.2); CARBON DIOXIDE 23 mmol/L (22-30); CHLORIDE 114 mmol/L (98-107); GLUCOSE 108 mg/dL (75-110); TOTAL PROTEIN 5.9 g/dL (6.3-8.2)
[2018-08-12 21:09] LABS: SODIUM 140.6 mmol/L (137-145)
[2018-08-12 21:11] LABS: ANION GAP 4 (5-19)
[2018-08-12] MEDS: FERROUS SULFATE 325 MG TABLET PO SCH (21:31)
[2018-08-12] MEDS: HEPARIN SOD (PORCINE) 5,000 UNIT/ML 1 ML SYRINGE SUBCUT SCH (21:32)
[2018-08-13] MEDS: LEVOTHYROXINE SODIUM 0.075 MG TABLET PO SCH (05:28)
[2018-08-13] MEDS: TRAMADOL HCL 50 MG TABLET PO PRN ×2 (05:28→22:28)
[2018-08-13] MEDS: GABAPENTIN 300 MG CAPSULE PO SCH ×3 (05:28→21:13)
[2018-08-13] MEDS: METOPROLOL SUCCINATE 50 MG TAB.SR.24H PO SCH (05:28)
[2018-08-13] MEDS: HEPARIN SOD (PORCINE) 5,000 UNIT/ML 1 ML SYRINGE SUBCUT SCH ×3 (05:28→21:13)
[2018-08-13 07:22] LABS: ALANINE AMINOTRANSFERASE 17 U/L (9-52); ALBUMIN 2.8 g/dL (3.5-5.0); ALKALINE PHOSPHATASE 47 U/L (38-126); ANION GAP 6 (5-19); ASPARTATE AMINO TRANSFERASE 25 U/L (14-36); BILIRUBIN,DIRECT 0.4 mg/dL (0.0-0.4); BILIRUBIN,TOTAL 0.7 mg/dL (0.2-1.3); BLOOD UREA NITROGEN 15 mg/dL (7-20); CALCIUM 10.2 mg/dL (8.4-10.2); CARBON DIOXIDE 20 mmol/L (22-30); CHLORIDE 116 mmol/L (98-107); GLUCOSE 81 mg/dL (75-110); POTASSIUM 5.9 mmol/L (3.6-5.0); SODIUM 142.2 mmol/L (137-145); TOTAL PROTEIN 5.8 g/dL (6.3-8.2)
[2018-08-13] MEDS: NORMAL SALINE 1000 ML 1,000 ML IV PRN ×2 (07:30→20:33)
[2018-08-13] MEDS: ALLOPURINOL 100 MG TABLET PO SCH (08:58)
[2018-08-13] MEDS: ATORVASTATIN CALCIUM 10 MG TABLET PO SCH (08:58)
[2018-08-13] MEDS: SERTRALINE HCL 50 MG TABLET PO SCH (08:58)
[2018-08-13] MEDS: POLYETHYLENE GLYCOL 3350 POWDER 17 GM/1 PACKET PO SCH (09:00)
[2018-08-13] MEDS: CALCITRIOL 0.25 MCG CAPSULE PO SCH (09:00)
[2018-08-13 10:25] LABS: ABSOLUTE EOSINOPHILS # (AUTO) 0.2 10^3/uL (0.0-0.6); ABSOLUTE LYMPHOCYTES (AUTO) 1.4 10^3/uL (0.5-4.7); ABSOLUTE MONOCYTES (AUTO) 0.3 10^3/uL (0.1-1.4); ABSOLUTE NEUT (AUTO) 1.7 10^3/uL (1.7-8.2); BASOPHILS % (AUTO) 0.6 % (0-2); EOSINOPHILS % (AUTO) 6.3 % (0-6); HEMATOCRIT 33.7 % (36.0-47.0); HEMOGLOBIN 10.8 g/dL (12.0-15.5); LYMPHOCYTES % (AUTO) 38.7 % (13-45); MEAN CORPUSCULAR HEMOGLOBIN 28.7 pg (27.0-33.4); MEAN CORPUSCULAR HGB CONC 32.1 g/dL (32.0-36.0); MEAN CORPUSCULAR VOLUME 89 fl (80-97); MONOCYTES % (AUTO) 8.5 % (3-13); PLATELET COUNT 134 10^3/uL (150-450); RED BLOOD COUNT 3.78 10^6/uL (3.72-5.28); RED CELL DISTRIBUTION WIDTH 19.1 % (11.5-14.0); SEGMENTED NEUTROPHILS % (AUTO) 45.9 % (42-78); TOTAL CELLS COUNTED % (AUTO) 100 %; WHITE BLOOD COUNT 3.7 10^3/uL (4.0-10.5)
[2018-08-13] MEDS: FERROUS SULFATE 325 MG TABLET PO SCH (21:13)
[2018-08-14] MEDS: ACETAMINOPHEN 325 MG TABLET PO PRN (03:47)
[2018-08-14] MEDS: TRAMADOL HCL 50 MG TABLET PO PRN ×3 (05:09→21:06)
[2018-08-14] MEDS: LEVOTHYROXINE SODIUM 0.075 MG TABLET PO SCH (05:10)
[2018-08-14] MEDS: GABAPENTIN 300 MG CAPSULE PO SCH ×3 (05:10→21:06)
[2018-08-14] MEDS: HEPARIN SOD (PORCINE) 5,000 UNIT/ML 1 ML SYRINGE SUBCUT SCH ×3 (05:10→21:06)
[2018-08-14] MEDS: METOPROLOL SUCCINATE 50 MG TAB.SR.24H PO SCH (05:10)
[2018-08-14] MEDS: ALLOPURINOL 100 MG TABLET PO SCH (09:07)
[2018-08-14] MEDS: CALCITRIOL 0.25 MCG CAPSULE PO SCH (09:07)
[2018-08-14] MEDS: ATORVASTATIN CALCIUM 10 MG TABLET PO SCH (09:07)
[2018-08-14] MEDS: SERTRALINE HCL 50 MG TABLET PO SCH (09:07)
--- NOTE | 2018-08-14 10:17 | PDOC PROGRESS REPORT ---
Subjective Progress Note for:: 08/14/18 Subjective:: Patient is currently doing well Patient only concern about that left foot fracture patient has a cast which is bothering the patient's knee area probably is a little bit longer needs to be cut Denied any chest pain to than any shortness of the breath Reason For Visit: HYPERKALEMIA Physical Exam Vital Signs: Temp Pulse Resp BP Pulse Ox 98.1 F 60 16 147/63 H 98 08/14/18 07:51 08/14/18 07:51 08/14/18 07:51 08/14/18 07:51 08/14/18 07:51 Intake & Output 08/13/18 08/14/18 08/15/18 06:59 06:59 06:59 Intake Total 1300 2689 732 Output Total 200 Balance 1100 2689 732 Weight 106.1 kg 108 kg General appearance: PRESENT: no acute distress, well-developed, well-nourished Head exam: PRESENT: atraumatic, normocephalic Eye exam: PRESENT: conjunctiva pink, EOMI, PERRLA. ABSENT: scleral icterus Ear exam: PRESENT: normal external ear exam Mouth exam: PRESENT: moist, tongue midline Neck exam: PRESENT: full ROM. ABSENT: carotid bruit, JVD, lymphadenopathy, thyromegaly Respiratory exam: PRESENT: clear to auscultation heidi Cardiovascular exam: PRESENT: RRR. ABSENT: diastolic murmur, rubs, systolic murmur Vascular exam: PRESENT: normal capillary refill GI/Abdominal exam: PRESENT: normal bowel sounds, soft. ABSENT: distended, guarding, mass, organolmegaly, rebound, tenderness Rectal exam: PRESENT: deferred Additional comments: Left lower extremity cast is present I think is little bit longer which touch the patient's lower knee area Neurological exam: PRESENT: alert, awake, oriented to person, oriented to place, oriented to time, oriented to situation, CN II-XII grossly intact. ABSENT: motor sensory deficit Psychiatric exam: PRESENT: appropriate affect, normal mood. ABSENT: homicidal ideation, suicidal ideation Skin exam: PRESENT: dry, intact, warm. ABSENT: cyanosis, rash Results Laboratory Results: 08/13/18 09:25 08/13/18 09:25 WBC 3.7 L RBC 3.78 Hgb 10.8 L Hct 33.7 L MCV 89 MCH 28.7 MCHC 32.1 RDW 19.1 H Plt Count 134 L Seg Neutrophils % 45.9 Lymphocytes % 38.7 Monocytes % 8.5 Eosinophils % 6.3 H Basophils % 0.6 Absolute Neutrophils 1.7 Absolute Lymphocytes 1.4 Absolute Monocytes 0.3 Absolute Eosinophils 0.2 Absolute Basophils 0.0 08/10/18 14:44 Troponin I < 0.012 Impressions: Chest X-Ray 08/10/18 13:49 IMPRESSION: NO ACUTE RADIOGRAPHIC FINDING IN THE CHEST. Head CT 08/10/18 13:49 IMPRESSION: NORMAL BRAIN CT WITHOUT CONTRAST. EVIDENCE OF ACUTE STROKE: NO. Assessment & Plan - Diagnosis (1) Acute kidney injury Is this a current diagnosis for this admission?: Yes (2) Fracture of metatarsal of left foot, closed Qualifiers: Encounter type: initial encounter Metatarsal bone: unspecified metatarsal Fracture alignment: nondisplaced Qualified Code(s): S92.302A - Fracture of unspecified metatarsal bone(s), left foot, initial encounter for closed fracture Is this a current diagnosis for this admission?: Yes (3) Hyperkalemia Is this a current diagnosis for this admission?: Yes (4) Chronic kidney disease, stage 3 Is this a current diagnosis for this admission?: Yes (5) Hyperlipidemia Is this a current diagnosis for this admission?: Yes (6) Hypertension Is this a current diagnosis for this admission?: Yes - Time Time Spent with patient: 15-24 minutes Medications reviewed and adjusted accordingly: Yes Anticipated discharge: Other Within: Other - Plan Summary Plan Summary: Low potassium diet Give vatsee 1 dose Repeat the potassiums Stop the IV fluid
[2018-08-14 10:33] LABS: ANION GAP 6 (5-19); BLOOD UREA NITROGEN 12 mg/dL (7-20); CALCIUM 10.5 mg/dL (8.4-10.2); CARBON DIOXIDE 22 mmol/L (22-30); CHLORIDE 113 mmol/L (98-107); GLUCOSE 115 mg/dL (75-110); POTASSIUM 4.9 mmol/L (3.6-5.0); SODIUM 140.8 mmol/L (137-145)
[2018-08-14] MEDS: POLYETHYLENE GLYCOL 3350 POWDER 17 GM/1 PACKET PO SCH (10:47)
[2018-08-14] MEDS ORDERED: PATIROMER 8.4 GM SUSP PACKET PO SCH (12:00)
[2018-08-14] MEDS: FERROUS SULFATE 325 MG TABLET PO SCH (21:06)
[2018-08-15] MEDS: TRAMADOL HCL 50 MG TABLET PO PRN (05:15)
[2018-08-15] MEDS: METOPROLOL SUCCINATE 50 MG TAB.SR.24H PO SCH (05:15)
[2018-08-15] MEDS: GABAPENTIN 300 MG CAPSULE PO SCH ×3 (05:16→21:02)
[2018-08-15] MEDS: LEVOTHYROXINE SODIUM 0.075 MG TABLET PO SCH (05:16)
[2018-08-15] MEDS: HEPARIN SOD (PORCINE) 5,000 UNIT/ML 1 ML SYRINGE SUBCUT SCH ×3 (05:17→21:02)
[2018-08-15 05:18] LABS: ABSOLUTE EOSINOPHILS # (AUTO) 0.2 10^3/uL (0.0-0.6); ABSOLUTE LYMPHOCYTES (AUTO) 1.9 10^3/uL (0.5-4.7); ABSOLUTE MONOCYTES (AUTO) 0.5 10^3/uL (0.1-1.4); ABSOLUTE NEUT (AUTO) 1.8 10^3/uL (1.7-8.2); BASOPHILS % (AUTO) 0.8 % (0-2); EOSINOPHILS % (AUTO) 4.5 % (0-6); HEMATOCRIT 33.5 % (36.0-47.0); LYMPHOCYTES % (AUTO) 43.3 % (13-45); MEAN CORPUSCULAR HEMOGLOBIN 29.3 pg (27.0-33.4); MEAN CORPUSCULAR HGB CONC 32.9 g/dL (32.0-36.0); MEAN CORPUSCULAR VOLUME 89 fl (80-97); MONOCYTES % (AUTO) 11.2 % (3-13); PLATELET COUNT 137 10^3/uL (150-450); RED BLOOD COUNT 3.76 10^6/uL (3.72-5.28); RED CELL DISTRIBUTION WIDTH 18.6 % (11.5-14.0); SEGMENTED NEUTROPHILS % (AUTO) 40.2 % (42-78); TOTAL CELLS COUNTED % (AUTO) 100 %; WHITE BLOOD COUNT 4.4 10^3/uL (4.0-10.5)
[2018-08-15 05:45] LABS: ANION GAP 9 (5-19); BLOOD UREA NITROGEN 14 mg/dL (7-20); CALCIUM 11.2 mg/dL (8.4-10.2); CARBON DIOXIDE 22 mmol/L (22-30); CHLORIDE 109 mmol/L (98-107); GLUCOSE 88 mg/dL (75-110); POTASSIUM 4.9 mmol/L (3.6-5.0); SODIUM 139.5 mmol/L (137-145)
[2018-08-15] MEDS: ATORVASTATIN CALCIUM 10 MG TABLET PO SCH (08:12)
[2018-08-15] MEDS: ALLOPURINOL 100 MG TABLET PO SCH (08:12)
[2018-08-15] MEDS: SERTRALINE HCL 50 MG TABLET PO SCH (08:12)
[2018-08-15] MEDS: CALCITRIOL 0.25 MCG CAPSULE PO SCH (09:28)
[2018-08-15] MEDS: POLYETHYLENE GLYCOL 3350 POWDER 17 GM/1 PACKET PO SCH (09:32)
[2018-08-15 15:00] LABS: HEMATOCRIT 32.7 % (36.0-47.0); HEMOGLOBIN 10.6 g/dL (12.0-15.5); MEAN CORPUSCULAR HEMOGLOBIN 28.8 pg (27.0-33.4); MEAN CORPUSCULAR HGB CONC 32.3 g/dL (32.0-36.0); MEAN CORPUSCULAR VOLUME 89 fl (80-97); PLATELET COUNT 138 10^3/uL (150-450); RED BLOOD COUNT 3.66 10^6/uL (3.72-5.28); WHITE BLOOD COUNT 3.6 10^3/uL (4.0-10.5)
[2018-08-15 15:43] LABS: ANION GAP 7 (5-19); BLOOD UREA NITROGEN 16 mg/dL (7-20); CALCIUM 11.4 mg/dL (8.4-10.2); CARBON DIOXIDE 24 mmol/L (22-30); CHLORIDE 108 mmol/L (98-107); GLUCOSE 110 mg/dL (75-110); POTASSIUM 4.7 mmol/L (3.6-5.0); SODIUM 138.6 mmol/L (137-145)
--- NOTE | 2018-08-15 19:16 | PDOC TRANSFER SUMMARY ---
General - Admit/Disc Date/PCP Admission Date/Primary Care Provider: 08/10/18 17:34 MARY RASHID MD Discharge Date: 08/16/18 - Discharge Diagnosis (1) Acute kidney injury Is this a current diagnosis for this admission?: Yes (2) Fracture of metatarsal of left foot, closed Is this a current diagnosis for this admission?: Yes (3) Chronic kidney disease, stage 3 Is this a current diagnosis for this admission?: Yes (4) Hyperlipidemia Is this a current diagnosis for this admission?: Yes (5) Hypertension Is this a current diagnosis for this admission?: Yes - Additional Information Prescriptions: RX: Tramadol HCl [Ultram 50 mg Tablet] 50 mg PO Q6HP PRN #120 tablet PRN Reason: Home Medications: RX: Allopurinol [Zyloprim 100 mg Tablet] 100 mg [facility] 08/10/18 RX: Atorvastatin Calcium [Lipitor 10 mg Tablet] 10 mg [facility] 08/10/18 RX: Calcitriol [Rocaltrol 0.5 mcg Capsule] 0.5 mcg PO [facility] 08/10/18 RX: Ferrous Sulfate [Feosol 325 mg Tablet] 325 mg PO QHS 08/10/18 RX: Gabapentin [Neurontin 300 mg Capsule] 300 mg PO Q8 08/10/18 RX: Levothyroxine Sodium [Synthroid 0.075 mg Tablet] 0.075 mg PO Q6AM 08/10/18 RX: Metoprolol Succinate [Toprol Xl] 200 mg PO Q6AM 08/10/18 RX: Olmesartan/Amlodipin/Hcthiazid [Tribenzor 40-5-25 mg Tablet] 1 tab [facility] 08/10/18 RX: Sertraline HCl [Zoloft 50 mg Tablet] 50 mg [facility] 08/10/18 RX: Tramadol HCl [Ultram 50 mg Tablet] 50 mg PO Q6HP PRN #120 tablet 08/15/18 History of Present Illness Admission Date/PCP: 08/10/18 17:34 MARY RASHID MD History of Present Illness: IVY CLAIRE is a 77 year old female,She has a history of chronic kidney disease stage 3 ,she lost her balance and twisted her left foot and ankle and sustained multiple fracture of the bones of the left foot .X-Ray of the left foot demonstrated fracture of 2nd,3rd and 4th metatarsal neck fracture.She was also found to have acute kidney injury ,she has a history of chronic kidney disease ,stage 3 ,this is probably pre-renal acute kidney injury.I saw her in the emergency room ,she complains of pain of the left foot Hospital Course Hospital Course: Patient was admitted for the management of acute kidney injury, fall with fracture of metatarsal bone of left foot. The acute kidney injury is prerenal, it was corrected with IV fluid, she has underlying CKD stage III. She was seen by orthopedic regarding the fracture left foot, conservative approach was recommended with no weightbearing. Orthopedic recommended that patient she should undergo physical therapy with rehabilitation. Physical Exam Vital Signs: Temp Pulse Resp BP Pulse Ox 98.4 F 58 L 18 124/68 100 08/15/18 15:31 08/15/18 15:31 08/15/18 15:31 08/15/18 15:31 08/15/18 15:31 Intake & Output 08/14/18 08/15/18 08/16/18 06:59 06:59 06:59 Intake Total 2689 1781 590 Balance 2689 1781 590 Weight 108 kg 106.5 kg Results Laboratory Results: 08/15/18 14:46 08/15/18 14:46 08/15/18 08/15/18 08/15/18 04:29 04:29 14:46 WBC 4.4 3.6 L RBC 3.76 3.66 L Hgb 11.0 L 10.6 L Hct 33.5 L 32.7 L MCV 89 89 MCH 29.3 28.8 MCHC 32.9 32.3 RDW 18.6 H 19.0 H Plt Count 137 L 138 L Seg Neutrophils % 40.2 L Lymphocytes % 43.3 Monocytes % 11.2 Eosinophils % 4.5 Basophils % 0.8 Absolute Neutrophils 1.8 Absolute Lymphocytes 1.9 Absolute Monocytes 0.5 Absolute Eosinophils 0.2 Absolute Basophils 0.0 Sodium 139.5 Potassium 4.9 Chloride 109 H Carbon Dioxide 22 Anion Gap 9 BUN 14 Creatinine 1.26 H Est GFR ( Amer) 50 L Est GFR (Non-Af Amer) 41 L Glucose 88 Calcium 11.2 H 08/15/18 14:46 WBC RBC Hgb Hct MCV MCH MCHC RDW Plt Count Seg Neutrophils % Lymphocytes % Monocytes % Eosinophils % Basophils % Absolute Neutrophils Absolute Lymphocytes Absolute Monocytes Absolute Eosinophils Absolute Basophils Sodium 138.6 Potassium 4.7 Chloride 108 H Carbon Dioxide 24 Anion Gap 7 BUN 16 Creatinine 1.33 H Est GFR ( Amer) 47 L Est GFR (Non-Af Amer) 39 L Glucose 110 Calcium 11.4 H 08/10/18 14:44 Troponin I < 0.012 Impressions: Chest X-Ray 08/10/18 13:49 IMPRESSION: NO ACUTE RADIOGRAPHIC FINDING IN THE CHEST. Head CT 08/10/18 13:49 IMPRESSION: NORMAL BRAIN CT WITHOUT CONTRAST. EVIDENCE OF ACUTE STROKE: NO. Qualifiers - * PATIENT BEING DISCHARGED WITH ANY OF THE FOLLOWING DIAGNOSIS: No VTE patient discharged on overlapping Therapy?: No Acute Heart Failure Is this a Heart Failure Patient?: No
[2018-08-15] MEDS: FERROUS SULFATE 325 MG TABLET PO SCH (21:02)
[2018-08-16 03:43] LABS: ANION GAP 5 (5-19); BLOOD UREA NITROGEN 18 mg/dL (7-20); CALCIUM 11.7 mg/dL (8.4-10.2); CARBON DIOXIDE 24 mmol/L (22-30); CHLORIDE 109 mmol/L (98-107); GLUCOSE 97 mg/dL (75-110); POTASSIUM 4.9 mmol/L (3.6-5.0); SODIUM 138.3 mmol/L (137-145)
[2018-08-16] MEDS: HEPARIN SOD (PORCINE) 5,000 UNIT/ML 1 ML SYRINGE SUBCUT SCH ×2 (05:32→13:24)
[2018-08-16] MEDS: METOPROLOL SUCCINATE 50 MG TAB.SR.24H PO SCH (05:32)
[2018-08-16] MEDS: GABAPENTIN 300 MG CAPSULE PO SCH ×2 (05:32→14:10)
[2018-08-16] MEDS: LEVOTHYROXINE SODIUM 0.075 MG TABLET PO SCH (05:32)
[2018-08-16] MEDS: SERTRALINE HCL 50 MG TABLET PO SCH (07:56)
[2018-08-16] MEDS: ALLOPURINOL 100 MG TABLET PO SCH (07:56)
[2018-08-16] MEDS: ATORVASTATIN CALCIUM 10 MG TABLET PO SCH (07:56)
[2018-08-16] MEDS: POLYETHYLENE GLYCOL 3350 POWDER 17 GM/1 PACKET PO SCH (09:41)
[2018-08-16] MEDS: CALCITRIOL 0.25 MCG CAPSULE PO SCH (09:52)
[2018-08-16 13:14] VITALS: BP 155/55
== END 2018-08-16 17:10 | DRG 684 ==
LOC: ER 12:29 → EH 17:34 → UNDOADMIN 17:34 → 3W 20:50 → EH 20:50
PROVIDERS: ADMIT Internal Medicine; ATTEND Internal Medicine
DX: N17.9 Acute kidney failure, unspecified (principal); S92.322A Displaced fracture of second metatarsal bone, left foot, initial encounter for closed fracture; S92.332A Displaced fracture of third metatarsal bone, left foot, initial encounter for closed fracture; S92.342A Displaced fracture of fourth metatarsal bone, left foot, initial encounter for closed fracture; W01.0XXA Fall on same level from slipping, tripping and stumbling without subsequent striking against object, initial encounter; Y92.012 Bathroom of single-family (private) house as the place of occurrence of the external cause; N18.3 Chronic kidney disease, stage 3 (moderate); E78.5 Hyperlipidemia, unspecified; I12.9 Hypertensive chronic kidney disease with stage 1 through stage 4 chronic kidney disease, or unspecified chronic kidney disease; E03.9 Hypothyroidism, unspecified; M10.9 Gout, unspecified; F32.9 Major depressive disorder, single episode, unspecified; D63.1 Anemia in chronic kidney disease; E66.01 Morbid (severe) obesity due to excess calories; E87.5 Hyperkalemia; M85.80 Other specified disorders of bone density and structure, unspecified site; Z96.651 Presence of right artificial knee joint; Z86.711 Personal history of pulmonary embolism; Z87.891 Personal history of nicotine dependence; Z79.899 Other long term (current) drug therapy; Z79.890 Hormone replacement therapy; Z88.8 Allergy status to other drugs, medicaments and biological substances
CPT/HCPCS: 36415; 70450; 71045; 80048; 80053; 81001; 84484; 85025; 85027; 85610; 85730; 93005; 93010; 94640; 96361; 96374; 96375; 99285; J0610; J1644; J1815; J3010; J3490; J7030

== ENCOUNTER 2018-08-17 11:21 | Inpatient (IN) | payer MEDICARE, MEDICAID ==
--- NOTE | 2018-08-17 11:57 | ER Document Report ---
ED General - General Chief Complaint: General Weakness Stated Complaint: WEAKNESS Time Seen by Provider: 08/17/18 11:47 Primary Care Provider: MARY RASHID MD [Primary Care Provider] - Follow up as needed Notes: Patient is here because her daughter is concerned about twitching of the right face which she is noted intermittently over the last 3 days. Patient had a fall and broke her left foot last week. She was admitted to this hospital for 1 week and was discharged to rehab yesterday. Daughter says she noted the patient is somewhat confused and "discombobulated" and the daughter noted slight twitching of the patient's right face during the last couple of days in the hospital and then she is having much more significant twitching of the face as well as the right shoulder and arm today. Patient says she has had some headache for quite some time. Her symptoms continued today and her primary care provider was contacted who is at her come here for evaluation. While in the hospital, patient was found to have some kidney damage as well as a high potassium. Denies any chest pains. Denies any shortness of breath. Patient had a stroke about a year ago. TRAVEL OUTSIDE OF THE [place] IN LAST 30 DAYS: No - Related Data Allergies/Adverse Reactions: steriods Allergy (Uncoded 08/10/18 12:33) steroids Adverse Reaction (Intermediate, Uncoded 08/10/18 12:33) Past Medical History - Social History Smoking Status: Unknown if Ever Smoked Family History: Reviewed & Not Pertinent - Past Medical History Cardiac Medical History: Reports: Hx Hypercholesterolemia, Hx Hypertension, Hx Pulmonary Embolism - 2 blood clots in her lungs a few years ago Neurological Medical History: Reports: Hx Cerebrovascular Accident - About a year ago. Endocrine Medical History: Reports: Hx Hypothyroidism Musculoskeletal Medical History: Reports Hx Arthritis, Reports Hx Gout Psychiatric Medical History: Reports: Hx Depression Past Surgical History: Reports: Hx Orthopedic Surgery - R knee replacement - Immunizations Hx Diphtheria, Pertussis, Tetanus Vaccination: Yes - <5 years Hx Pneumococcal Vaccination: 04/12/08 Review of Systems - Review of Systems Notes: REVIEW OF SYSTEMS: Source is patient's daughter. CONSTITUTIONAL : Denies fever. EENT: Denies eye, ear, nose or mouth or throat pain or other symptoms. CARDIOVASCULAR: Occasional chest pains, not now. RESPIRATORY: Denies cough, chest congestion, or shortness of breath. GASTROINTESTINAL: Denies abdominal pain or nausea, vomiting, or diarrhea. GENITOURINARY: Denies difficulty or painful urinating, urinary frequency, blood in urine. MUSCULOSKELETAL: Denies back or neck pain. Denies joint pain or swelling. Recent fracture of the left foot. NEUROLOGICAL: See HPI. Denies headache today. Denies sensory loss or motor deficits. ALL OTHER SYSTEMS REVIEWED AND NEGATIVE. -: Yes ROS unobtainable due to patient's medical condition - Patient is confused and not reliable as a source for review of systems. Physical Exam - Vital signs Vitals: Pulse Resp BP Pulse Ox 67 14 171/94 H 96 08/17/18 11:22 08/17/18 11:22 08/17/18 11:22 08/17/18 11:22 Interpretation: Normal, Hypertensive - Mild Notes: PHYSICAL EXAMINATION: GENERAL: Well-appearing, in no acute distress. HEAD: Atraumatic, normocephalic. Right face in the region of the cheek has an intermittent minor rhythmic twitching EYES: Pupils equal round and reactive to light, extraocular movements intact. ENT: oropharynx clear without exudates. Moist mucous membranes. NECK: Normal range of motion, supple. LUNGS: Breath sounds clear and equal bilaterally. HEART: Regular rate and rhythm without murmurs. ABDOMEN: Soft, nontender. No guarding or rebound. No masses. BACK: No tenderness throughout entire back. EXTREMITIES: Left lower extremity has a splint on the patient's left foot and ankle wrapped with Regino wrappings. Normal range of motion without pain. NEUROLOGICAL: Normal speech, gait not tested. Normal sensory, motor, and reflex exams. Awake, alert, and oriented x3. But at times seems confused and not able to give a reliable response. PSYCH: Normal mood, normal affect. SKIN: Warm, dry, no rashes. Course - Re-evaluation Re-evalutation: 08/17/18 14:30 08/17/18 14:27 Patient's work-up is essentially normal lower unremarkable. Magnesium is a slight bit low and calcium is a slight bit high. Giving the patient some IV magnesium sulfate. I am giving the patient some IV fluids to try to lower her calcium a little bit. Spoke with Dr. Brantley, who will admit the patient for observation. - Vital Signs Vital signs: Temp Pulse Resp BP Pulse Ox 97.8 F 67 15 169/72 H 97 08/17/18 11:58 08/17/18 11:22 08/17/18 13:00 08/17/18 12:02 08/17/18 13:00 - Laboratory Result Diagrams: 08/17/18 12:12 08/17/18 12:12 Laboratory results interpreted by me: 08/17/18 08/17/18 12:12 12:12 RDW 18.9 H Est GFR ( Amer) 54 L Est GFR (Non-Af Amer) 45 L Calcium 11.9 H Magnesium 0.7 L* - Diagnostic Test Radiology reviewed: Image reviewed, Reports reviewed - CT scan of the brain shows no evidence of stroke or other abnormality. - EKG Interpretation by Sd EKG shows normal: Sinus rhythm Rate: Normal - Rate of 65 Rhythm: NSR Additional EKG results interpreted by me: 08/17/18 14:41 EKG does not show any acute changes. No ST elevation. Discharge - Discharge Clinical Impression: Facial twitching, Possible seizure, Hypercalcemia Condition: Stable Disposition: ADMITTED INPATIENT Admitting Provider: [facility] Admitted: I[facility]U Referrals: MARY RASHID MD [Primary Care Provider] - Follow up as needed
[2018-08-17 12:28] LABS: HEMATOCRIT 37.2 % (36.0-47.0); MEAN CORPUSCULAR HEMOGLOBIN 28.8 pg (27.0-33.4); MEAN CORPUSCULAR HGB CONC 32.2 g/dL (32.0-36.0); MEAN CORPUSCULAR VOLUME 89 fl (80-97); PLATELET COUNT 161 10^3/uL (150-450); RED BLOOD COUNT 4.17 10^6/uL (3.72-5.28); RED CELL DISTRIBUTION WIDTH 18.9 % (11.5-14.0); WHITE BLOOD COUNT 4.3 10^3/uL (4.0-10.5)
--- NOTE | 2018-08-17 12:39 | RADIOLOGY REPORT (SQ) ---
EXAM DESCRIPTION: CT HEAD WITHOUT COMPLETED DATE/TIME: 08/17/2018 12:29 pm REASON FOR STUDY: Twitching right face and right side of the body. COMPARISON: 08/10/2018 TECHNIQUE: Axial images acquired through the brain without intravenous contrast. Images reviewed wi th bone, brain and subdural windows. Additional sagittal and coronal reconstructions were generated. Images stored on PACS. All CT scanners at this facility use dose modulation, iterative reconstruction, and/or weight based d osing when appropriate to reduce radiation dose to as low as reasonably achievable (ALARA). [facility]: Dose Right [facility]: CareDose [facility]: Dose Right [facility]: Teradose 4D [facility]: [facility] RADIATION DOSE: CT Rad equipment meets quality standard of care and radiation dose reduction techniq ues were employed. CTDIvol: 53.2 mGy. DLP: 1044 mGy-cm. mGy. LIMITATIONS: None. FINDINGS: VENTRICLES: Prominent ventricles secondary to involutional atrophy. CEREBRUM: No masses. No hemorrhage. No midline shift. No evidence for acute infarction. Normal gra y/white matter differentiation. No areas of low density in the white matter. CEREBELLUM: No masses. No hemorrhage. No alteration of density. No evidence for acute infarction. EXTRAAXIAL SPACES: No fluid collections. No masses. ORBITS AND GLOBE: No intra- or extraconal masses. Normal contour of globe without masses. CALVARIUM: No fracture. PARANASAL SINUSES: No fluid or mucosal thickening. SOFT TISSUES: No mass or hematoma. OTHER: No other significant finding. IMPRESSION: NO ACUTE INTRACRANIAL IMAGING FINDINGS. No interval change since the recent CT scan EVIDENCE OF ACUTE STROKE: NO. COMMENT: Quality ID # [id number]: Final reports with documentation of one or more dose reduction techniques (e.g., Automated exposure control, adjustment of the mA and/or kV according to patient size, use of iterative reconstruction technique) TECHNICAL DOCUMENTATION: JOB ID: [id number] [employer]- All Rights Reserved Reading location - IP/workstation name: [email or web address]
[2018-08-17 12:47] LABS: ALANINE AMINOTRANSFERASE 17 U/L (9-52); ALBUMIN 3.5 g/dL (3.5-5.0); ALKALINE PHOSPHATASE 69 U/L (38-126); ANION GAP 7 (5-19); ASPARTATE AMINO TRANSFERASE 22 U/L (14-36); BILIRUBIN,DIRECT 0.2 mg/dL (0.0-0.4); BILIRUBIN,TOTAL 0.4 mg/dL (0.2-1.3); BLOOD UREA NITROGEN 15 mg/dL (7-20); CALCIUM 11.9 mg/dL (8.4-10.2); CARBON DIOXIDE 27 mmol/L (22-30); CHLORIDE 107 mmol/L (98-107); CREATINE KINASE 49 U/L (30-135); GLUCOSE 104 mg/dL (75-110); POTASSIUM 4.7 mmol/L (3.6-5.0); SODIUM 141.1 mmol/L (137-145); TOTAL PROTEIN 6.7 g/dL (6.3-8.2)
[2018-08-17 12:53] LABS: ABSOLUTE LYMPHOCYTES# (MANUAL) 1.2 10^3/uL (0.5-4.7); ABSOLUTE MONOCYTES # (MANUAL) 0.2 10^3/uL (0.1-1.4); ABSOLUTE NEUTROPHILS# (MANUAL) 2.7 10^3/uL (1.7-8.2); BASOPHILS % (MANUAL) 1 % (0-2); EOSINOPHILS % (MANUAL) 4 % (0-6); LYMPHOCYTES % (MANUAL) 26 % (13-45); MONOCYTES % (MANUAL) 5 % (3-13); SEGMENTED NEUTROPHILS % (MAN) 62 % (42-78); TOTAL CELLS COUNTED 100
[2018-08-17 12:55] LABS: ANISOCYTOSIS 2+; BURR CELLS SLIGHT; OVALOCYTES SLIGHT; PLATELET LARGE PRESENT; POIKILOCYTOSIS SLIGHT; POLYCHROMASIA SLIGHT; SCHISTOCYTES SLIGHT; SMUDGE CELLS PRESENT; TEAR DROP CELLS SLIGHT; TOXIC VACUOLATION PRESENT
[2018-08-17 12:56] LABS: PLATELET COMMENT ADEQUATE
[2018-08-17 12:57] LABS: CREATINE KINASE MB 0.63 ng/mL (<4.55)
[2018-08-17 12:58] LABS: TROPONIN I < 0.012 ng/mL
[2018-08-17 14:06] LABS: APPEARANCE,URINE CLEAR; BILIRUBIN,URINE NEGATIVE (NEGATIVE); COLOR,URINE STRAW; GLUCOSE, URINE NEGATIVE (NEGATIVE); KETONES,URINE NEGATIVE (NEGATIVE); LEUKOCYTE ESTERASE,URINE NEGATIVE (NEGATIVE); NITRITE,URINE NEGATIVE (NEGATIVE); PROTEIN,URINE NEGATIVE (NEGATIVE); URINE SPECIFIC GRAVITY 1.011; UROBILINOGEN,URINE NEGATIVE mg/dL (<2.0)
[2018-08-17] MEDS ORDERED: NORMAL SALINE 1000 ML 1,000 ML IV ONE (14:21)
[2018-08-17] MEDS ORDERED: MAGNESIUM SULFATE PF/INJ 40 MEQ/10 ML SDV IV ONE (14:21)
[2018-08-17] MEDS ORDERED: MAGNESIUM SULFATE/D5W 1 GM/100 ML RTUPB IV ONE ×3 (14:32→17:42)
[2018-08-17] MEDS ORDERED: ACETAMINOPHEN 325 MG TABLET PO ONE (14:40)
[2018-08-17] MEDS ORDERED: HCTHIAZID PO SCH (17:15)
[2018-08-17] MEDS ORDERED: [UNRECOGNIZED DRUG - OTHER] PO SCH (17:15)
[2018-08-17] MEDS ORDERED: OLMESARTAN PO SCH (17:15)
[2018-08-17] MEDS ORDERED: AMLODIPIN PO SCH (17:15)
[2018-08-17] MEDS ORDERED: (PENDING PHARMACY ID) (Metoprolol Succinate [Toprol Xl] 200 MG) PO SCH (17:15)
[2018-08-17] MEDS ORDERED: LORAZEPAM INJ 2 MG/1 ML VIAL ONE (17:26)
[2018-08-17] MEDS ORDERED: LORAZEPAM INJ 2 MG/1 ML VIAL IV ONE (18:00)
[2018-08-17] MEDS: MAGNESIUM SULFATE/D5W 1 GM/100 ML RTUPB IV SCH ×3 (18:10→19:21)
[2018-08-17] MEDS: ATORVASTATIN CALCIUM 10 MG TABLET PO SCH (18:13)
[2018-08-17] MEDS: ALLOPURINOL 100 MG TABLET PO SCH (18:13)
[2018-08-17] MEDS: METOPROLOL SUCCINATE 50 MG TAB.SR.24H PO SCH (18:13)
[2018-08-17 18:27] LABS: ANION GAP 14 (5-19); BLOOD UREA NITROGEN 13 mg/dL (7-20); CALCIUM 11.7 mg/dL (8.4-10.2); CARBON DIOXIDE 19 mmol/L (22-30); CHLORIDE 106 mmol/L (98-107); GLUCOSE 140 mg/dL (75-110); SODIUM 138.9 mmol/L (137-145)
[2018-08-17] MEDS ORDERED: LORAZEPAM INJ 2 MG/1 ML VIAL IV PRN (19:15)
[2018-08-17] MEDS: PHENYTOIN SODIUM INJ/PF 100 MG/2 ML SDV IV ONE ×2 (20:07→20:24)
--- NOTE | 2018-08-17 20:07 | EKG REPORT ---
SEVERITY:- BORDERLINE ECG - SINUS RHYTHM BORDERLINE T ABNORMALITIES, ANT-LAT LEADS : Confirmed by: Geni Alexander MD 17-Aug-2018 20:07:27
--- NOTE | 2018-08-17 20:16 | PDOC H&P ---
History of Present Illness Admission Date/PCP: 08/17/18 15:05 MARY RASHID MD History of Present Illness: IVY CLAIRE is a 77 year old female she was discharged from this hospital on 2018 when she fell and sustained fracture of the the bones of the left foot, she is being managed conservatively. 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 The ED physician suggested that patient should be admitted for observation, she was transferred to intermediate care unit for observation, on the floor she had episode of convulsive seizure with tonic-clonic contraction of the right side of her body. She was given intravenous lorazepam followed by loading dose of Dilantin and then transferred to ICU for close monitoring. MRI brain was done, it demonstrated normal- appearing structures also found was several nodular foci of hyperintense T2/f lair signal located at the occipital lobes. She has a history of right cerebellar infarct. The blood pressure was also elevated in the hypertensive urgency range. Past Medical History Cardiac Medical History: Reports: Hyperlipidema, Hypertension, Pulmonary Embolism - 2 blood clots in her lungs a few years ago Pulmonary Medical History: Reports: Bronchitis Endocrine Medical History: Reports: Hypothyroidism Renal/ Medical History: Reports: Chronic Kidney Disease, Other - Chronic kidney disease stage III Musculoskeltal Medical History: Reports: Arthritis, Gout Psychiatric Medical History: Reports: Depression Hematology: Reports: Anemia Past Surgical History Past Surgical History: Reports: Orthopedic Surgery - R knee replacement Social History Smoking Status: Former Smoker Frequency of Alcohol Use: None Hx Recreational Drug Use: No Drugs: None Hx Prescription Drug Abuse: No - Advance Directive Resuscitation Status: Full Code Family History Family History: Reviewed & Not Pertinent Parental Family History Reviewed: Yes Children Family History Reviewed: Yes Sibling(s) Family History Reviewed.: Yes Medication/Allergy Home Medications: Allopurinol [Zyloprim 100 mg Tablet] 100 mg PO QAM 08/10/18 Atorvastatin Calcium [Lipitor 10 mg Tablet] 10 mg PO QAM 08/10/18 Calcitriol [Rocaltrol 0.5 mcg Capsule] 0.5 mcg PO QAM 08/10/18 Ferrous Sulfate [Feosol 325 mg Tablet] 325 mg PO QHS 08/10/18 Gabapentin [Neurontin 300 mg Capsule] 300 mg PO Q8 08/10/18 Levothyroxine Sodium [Synthroid 0.075 mg Tablet] 0.075 mg PO Q6AM 08/10/18 Metoprolol Succinate [Toprol Xl] 200 mg PO Q6AM 08/10/18 Olmesartan/Amlodipin/Hcthiazid [Tribenzor 40-5-25 mg Tablet] 1 tab PO QAM 08/10/18 Sertraline HCl [Zoloft 50 mg Tablet] 50 mg PO QAM 08/10/18 Allergies/Adverse Reactions: steriods Allergy (Uncoded 08/10/18 12:33) steroids Adverse Reaction (Intermediate, Uncoded 08/10/18 12:33) Review of Systems ROS unobtainable: Due to mental status Physical Exam Vital Signs: Temp Pulse Resp BP Pulse Ox 98.1 F 82 25 H 148/74 H 93 08/17/18 18:04 08/17/18 18:19 08/17/18 18:04 08/17/18 18:04 08/17/18 18:04 Intake & Output 08/16/18 08/17/18 08/18/18 06:59 06:59 06:59 Intake Total 775 Balance 775 Weight 101.7 kg General appearance: PRESENT: mild distress Eye exam: PRESENT: PERRLA Respiratory exam: PRESENT: clear to auscultation heidi Cardiovascular exam: PRESENT: +S1, +S2 GI/Abdominal exam: PRESENT: soft Neurological exam: PRESENT: alert, CN II-XII grossly intact Results Laboratory Results: 08/17/18 12:12 08/17/18 17:35 08/17/18 08/17/18 08/17/18 12:12 12:12 13:35 WBC 4.3 RBC 4.17 Hgb 12.0 Hct 37.2 MCV 89 MCH 28.8 MCHC 32.2 RDW 18.9 H Plt Count 161 Seg Neutrophils % Not Reportable Lymphocytes % Not Reportable Monocytes % Not Reportable Eosinophils % Not Reportable Basophils % Not Reportable Absolute Neutrophils Not Reportable Absolute Lymphocytes Not Reportable Absolute Monocytes Not Reportable Absolute Eosinophils Not Reportable Absolute Basophils Not Reportable Sodium 141.1 Potassium 4.7 Chloride 107 Carbon Dioxide 27 Anion Gap 7 BUN 15 Creatinine 1.18 Est GFR ( Amer) 54 L Est GFR (Non-Af Amer) 45 L Glucose 104 Calcium 11.9 H Magnesium 0.7 L* Total Bilirubin 0.4 AST 22 ALT 17 Alkaline Phosphatase 69 Total Protein 6.7 Albumin 3.5 PTH Intact Urine Color STRAW Urine Appearance CLEAR Urine pH 5.0 Ur Specific [place] 1.011 Urine Protein NEGATIVE Urine Glucose (UA) NEGATIVE Urine Ketones NEGATIVE Urine Blood NEGATIVE Urine Nitrite NEGATIVE Ur Leukocyte Esterase NEGATIVE Urine WBC (Auto) 0 Urine RBC (Auto) 0 08/17/18 08/17/18 08/17/18 15:33 17:35 17:35 WBC RBC Hgb Hct MCV MCH MCHC RDW Plt Count Seg Neutrophils % Lymphocytes % Monocytes % Eosinophils % Basophils % Absolute Neutrophils Absolute Lymphocytes Absolute Monocytes Absolute Eosinophils Absolute Basophils Sodium 138.9 Potassium 4.0 Chloride 106 Carbon Dioxide 19 L Anion Gap 14 BUN 13 Creatinine 1.07 Est GFR ( Amer) > 60 Est GFR (Non-Af Amer) 50 L Glucose 140 H Calcium 11.7 H Magnesium 1.1 L* Total Bilirubin AST ALT Alkaline Phosphatase Total Protein Albumin PTH Intact 89.3 H Urine Color Urine Appearance Urine pH Ur Specific Dun[place] Urine Protein Urine Glucose (UA) Urine Ketones Urine Blood Urine Nitrite Ur Leukocyte Esterase Urine WBC (Auto) Urine RBC (Auto) 08/17/18 08/17/18 12:12 12:12 Creatine Kinase 49 CK-MB (CK-2) 0.63 Troponin I < 0.012 Impressions: Head CT 08/17/18 11:48 IMPRESSION: NO ACUTE INTRACRANIAL IMAGING FINDINGS. No interval change since the recent CT scan EVIDENCE OF ACUTE STROKE: NO. Assessment & Plan - Diagnosis (1) Status epilepticus Is this a current diagnosis for this admission?: Yes Plan: She has a new onset seizure, differential diagnosis would include cerebral neoplasm, herpes simplex encephalitis, metabolic derangement, she may need lumbar puncture, treat with IV Keppra, PRN lorazepam (2) Hypertensive urgency Is this a current diagnosis for this admission?: Yes Plan: Start Cardene infusion (3) Secondary hyperparathyroidism Is this a current diagnosis for this admission?: Yes Plan: The hypercalcemia is most likely from secondary hyperparathyroidism (4) Chronic kidney disease, stage 3 Is this a current diagnosis for this admission?: Yes
[2018-08-17] MEDS ORDERED: PHENYTOIN SODIUM INJ/PF 250 MG/5 ML SDV IV ONE (20:30)
[2018-08-17] MEDS ORDERED: MORPHINE SULFATE 10 MG/ML INJ IV PRN (20:45)
[2018-08-17] MEDS ORDERED: NICARDIPINE HCL RTU, ISO-OS 20 MG/200 ML RTUINJ IV PRN (20:45)
[2018-08-17 20:53] LABS: APPEARANCE,URINE CLEAR; BILIRUBIN,URINE NEGATIVE (NEGATIVE); COLOR,URINE STRAW; GLUCOSE, URINE NEGATIVE (NEGATIVE); KETONES,URINE NEGATIVE (NEGATIVE); LEUKOCYTE ESTERASE,URINE TRACE (NEGATIVE); NITRITE,URINE NEGATIVE (NEGATIVE); PROTEIN,URINE NEGATIVE (NEGATIVE); UROBILINOGEN,URINE NEGATIVE mg/dL (<2.0)
[2018-08-17] MEDS: GABAPENTIN 300 MG CAPSULE PO SCH (21:03)
[2018-08-17 21:04] LABS: URINE AMPHETAMINES SCREEN NEGATIVE; URINE BARBITURATES SCREEN NEGATIVE; URINE BENZODIAZEPINES SCREEN NEGATIVE; URINE COCAINE SCREEN NEGATIVE; URINE MARIJUANA (THC) SCREEN NEGATIVE; URINE METHADONE SCREEN NEGATIVE; URINE PHENCYCLIDINE SCREEN NEGATIVE
[2018-08-17] MEDS ORDERED: LEVETIRACETAM 500 MG TABLET PO SCH (22:00)
[2018-08-17] MEDS ORDERED: FERROUS SULFATE 325 MG TABLET PO SCH (22:00)
[2018-08-17] MEDS: HEPARIN SOD (PORCINE) 5,000 UNIT/ML 1 ML SYRINGE SUBCUT SCH (22:47)
--- NOTE | 2018-08-17 23:01 | RADIOLOGY REPORT (SQ) ---
EXAM DESCRIPTION: MR BRAIN WITHOUT IV CONTRAST COMPLETED DATE/TME: 08/17/2018 00:00 CLINICAL HISTORY: 77 years, Female, CVA COMPARISON: Prior CT head performed earlier the same day. TECHNIQUE: Multiplanar, multisequence MR images of the head were obtained without the use of intravenous contrast. Images stored on PACS. LIMITATIONS: Substantially limited examination secondary to excessive motion artifact. FINDINGS: Sagittal T1 weighted sequences substantially limited secondary to excessive motion artifact. The sella appears empty. Midline structures grossly appear normal. Evaluation of the brain parenchyma reveals mild periventricular and patchy white matter signal alteration, with several additional nodular foci of hyperintense T2/FLAIR signal located about both occipital lobes. A more regional area of hyperintense T2/FLAIR signal is noted about the right cerebellar hemisphere. However, no concomitant diffusion restriction is identified. Susceptibility weighted images reveal no obvious foci of susceptibility artifact. No obvious extra-axial fluid is identified. Intracranial arterial and venous flow voids appear grossly normal. Paranasal sinuses and mastoid air cells are grossly clear. Globes and orbits show no obvious abnormality. Ventricles and sulcal spaces are mildly enlarged. IMPRESSION: Significantly limited examination secondary to motion artifact. Regional area of hyperintense T2/FLAIR signal about the right cerebellar hemisphere without concomitant diffusion restriction, suspicious for a subacute infarct. Superimposed mild chronic microvascular ischemic change. However, additional patchy nodular foci of hyperintense T2/FLAIR signal located about both occipital lobes is somewhat atypical in configuration for chronic microvascular ischemic change. Correlation with a contrast-enhanced MR once the patient is able would be of benefit for further assessment. Mild generalized atrophy. copyright 2010 [employer]- All Rights Reserved
[2018-08-18 01:55] LABS: INTERNATIONAL RATION (INR) 0.95; PARTIAL THROMBOPLASTIN TIME 20.8 SEC (23.5-35.8); PROTHROMBIN TIME 13.2 SEC (11.4-15.4)
[2018-08-18] MEDS: LORAZEPAM INJ 2 MG/1 ML VIAL IV PRN ×2 (04:37→09:23)
[2018-08-18] MEDS ORDERED: LEVETIRACETAM 500 MG/NACL-ISO 500 MG/100 ML RTUPB IV ONE ×2 (05:15→05:20)
[2018-08-18] MEDS: GABAPENTIN 300 MG CAPSULE PO SCH ×2 (05:20→14:17)
[2018-08-18] MEDS: METOPROLOL SUCCINATE 50 MG TAB.SR.24H PO SCH (05:21)
[2018-08-18] MEDS: HEPARIN SOD (PORCINE) 5,000 UNIT/ML 1 ML SYRINGE SUBCUT SCH ×3 (05:28→22:25)
[2018-08-18] MEDS ORDERED: LEVOTHYROXINE SODIUM 0.075 MG TABLET PO SCH (06:00)
[2018-08-18] MEDS: ATORVASTATIN CALCIUM 10 MG TABLET PO SCH (07:31)
[2018-08-18] MEDS: ALLOPURINOL 100 MG TABLET PO SCH (07:32)
[2018-08-18] MEDS ORDERED: LOSARTAN POTASSIUM 50 MG TABLET PO SCH (08:00)
[2018-08-18] MEDS ORDERED: HYDROCHLOROTHIAZIDE 25 MG TABLET PO SCH (08:00)
[2018-08-18] MEDS ORDERED: SERTRALINE HCL 50 MG TABLET PO SCH (08:00)
[2018-08-18] MEDS ORDERED: AMLODIPINE BESYLATE 5 MG TABLET PO SCH (08:00)
[2018-08-18] MEDS ORDERED: GLUCAGON,HUMAN RECOMB 1 MG INJ SUBCUT PRN (08:08)
[2018-08-18] MEDS ORDERED: DEXTROSE 50%-WATER 25 GM/50 ML DISP.SYRIN IV PRN ×2 (08:08)
[2018-08-18] MEDS ORDERED: DEXTROSE 40% GEL 15 GM TUBE PO PRN ×2 (08:08)
[2018-08-18 08:17] LABS: ABSOLUTE BASOPHILS # (AUTO) 0.1 10^3/uL (0.0-0.2); ABSOLUTE MONOCYTES (AUTO) 0.3 10^3/uL (0.1-1.4); BASOPHILS % (AUTO) 1.6 % (0-2); EOSINOPHILS % (AUTO) 0.1 % (0-6); HEMATOCRIT 43.4 % (36.0-47.0); LYMPHOCYTES % (AUTO) 15.7 % (13-45); MEAN CORPUSCULAR HEMOGLOBIN 28.4 pg (27.0-33.4); MEAN CORPUSCULAR HGB CONC 32.2 g/dL (32.0-36.0); MEAN CORPUSCULAR VOLUME 88 fl (80-97); MONOCYTES % (AUTO) 5.1 % (3-13); PLATELET COUNT 172 10^3/uL (150-450); RED BLOOD COUNT 4.92 10^6/uL (3.72-5.28); RED CELL DISTRIBUTION WIDTH 18.6 % (11.5-14.0); SEGMENTED NEUTROPHILS % (AUTO) 77.5 % (42-78); TOTAL CELLS COUNTED % (AUTO) 100 %; WHITE BLOOD COUNT 6.4 10^3/uL (4.0-10.5)
[2018-08-18 08:40] LABS: ALANINE AMINOTRANSFERASE 21 U/L (9-52); ALKALINE PHOSPHATASE 95 U/L (38-126); ANION GAP 12 (5-19); ASPARTATE AMINO TRANSFERASE 24 U/L (14-36); BILIRUBIN,DIRECT 0.4 mg/dL (0.0-0.4); BILIRUBIN,TOTAL 0.5 mg/dL (0.2-1.3); BLOOD UREA NITROGEN 14 mg/dL (7-20); CALCIUM 11.9 mg/dL (8.4-10.2); CARBON DIOXIDE 25 mmol/L (22-30); CHLORIDE 101 mmol/L (98-107); CHOLESTEROL 248.37 mg/dL (0-200); GLUCOSE 156 mg/dL (75-110); POTASSIUM 4.2 mmol/L (3.6-5.0); TOTAL PROTEIN 7.6 g/dL (6.3-8.2); TRIGLYCERIDES 90 mg/dL (<150)
[2018-08-18 08:42] LABS: LIPASE 197.1 U/L (23-300); PHOSPHORUS 2.1 mg/dL (2.5-4.5)
[2018-08-18 08:51] LABS: DIRECT LDL 127 mg/dL (<100)
[2018-08-18 09:29] LABS: CREATINE KINASE MB 0.85 ng/mL (<4.55)
[2018-08-18 09:39] LABS: FREE T4 (FREE THYROXINE) 1.89 ng/dL (0.78-2.19)
[2018-08-18 09:52] LABS: THYROID STIMULATING HORMONE 1.27 uIU/mL (0.47-4.68)
[2018-08-18] MEDS ORDERED: SUCCINYLCHOLINE CHLORIDE INJ 200 MG/10 ML VIAL ONE (09:58)
[2018-08-18] MEDS ORDERED: LEVETIRACETAM 1000 MG/NACL-ISO 1,000 MG/100 ML RTUPB IV SCH (10:00)
[2018-08-18] MEDS: LEVETIRACETAM 1000 MG/NACL-ISO 1,000 MG/100 ML RTUPB IV SCH ×2 (10:11→22:24)
[2018-08-18] MEDS: ACYCLOVIR SODIUM 750 MG in NORMAL SALINE 250 ML IV SCH ×2 (11:11→18:57)
[2018-08-18] MEDS: RINGERS SOLUTION,LACTATED 1,000 ML IV PRN ×3 (11:12→22:24)
[2018-08-18 11:39] LABS: INTERNATIONAL RATION (INR) 0.96; PARTIAL THROMBOPLASTIN TIME 33.7 SEC (23.5-35.8); PROTHROMBIN TIME 13.3 SEC (11.4-15.4)
--- NOTE | 2018-08-18 15:30 | RADIOLOGY REPORT (SQ) ---
EXAM DESCRIPTION: LUMBAR PUNCTURE; FLUORO/NEEDLE PLACEMENT/SPINE COMPLETED DATE/TIME: 08/18/2018 2:07 pm REASON FOR STUDY: new onset seizure ; ONSET SEIZURE COMPARISON: MRI brain 08/17/2018 CT brain 08/17/2018 FLUOROSCOPY TIME: 6 seconds 1 digital fluoroscopic image saved to PACS. TECHNIQUE: Fluoroscopic guided lumbar puncture. LIMITATIONS: None. PROCEDURE: After written consent and assessment were obtained, the patient was brought into the fluo roscopy room and placed prone on the table. The patient's lower back was prepped in a sterile fashio n and an entry site was selected under live fluoroscopic guidance. The entry site was anesthetized wi th 1% lidocaine. An 18 gauge needle was advanced through the skin and into the thecal sac at the rig ht paracentral L2-3 level. After approximately 8 ml was drained, the needle was removed and a steril e bandage was placed of the site. Specimens were sent to the lab for testing. A fluoroscopic spot i mage was saved to PACS confirming level access. FINDINGS: Clear CSF IMPRESSION: Lumbar puncture under fluoroscopy. No immediate complication. COMMENT: Patient medication list reviewed: Yes- Quality ID# [id number]:Eligible professional attests to doc umenting in the medical record they obtained, updated, or reviewed the patient's current medications. . Quality ID 145: Final reports for procedures using fluoroscopy that document radiation exposure tete mallory, or exposure time and number of fluorographic images (if radiation exposure indices are not avail able) TECHNICAL DOCUMENTATION: JOB ID: [id number] [employer]- All Rights Reserved Reading location - IP/workstation name: [email or web address]
[2018-08-18] MEDS ORDERED: PHARMACY COMMUNICATION ORDER MC NR (16:00)
[2018-08-18 16:12] LABS: COLOR ALL TUBES COLORLESS; CSF TUBE NUMBER 3
[2018-08-18 16:13] LABS: APPEARANCE ALL TUBES CLEAR; CSF TOTAL VOLUME 7.5 CC; RED BLOOD CELL,CSF 0 /uL (0-10); VOLUME TUBE 4 1.5 CC; WHITE BLOOD CELL,CSF 5 /uL (0-5)
[2018-08-18 16:15] LABS: APPEARANCE ALL TUBES CLEAR; COLOR ALL TUBES COLORLESS; CSF TOTAL VOLUME 7.5 CC; CSF TUBE NUMBER 4; RED BLOOD CELL,CSF 0 /uL (0-10); VOLUME TUBE 4 1.5 CC
--- NOTE | 2018-08-18 16:15 | NEURO WORKBENCH EEG REPORT ---
EEG Report Patient: Ronnie Hector ID:[id number] Referring Doctor: Robin Mcarthur DOS: 08/18/2018 Medications: Zloprim, Norvasc, Lipitor, Feosol, Gabapentin, Porcine, Hydrodiuril, Keppra, Synthroid, Ativan, Cozaar, Toprol, Morphine, Cardene, Zoloft History This is a 77 year old woman with a history of strokes in 2017 and 2018, hypertension, hypercholesterolemia, pulmonary embolus, right kidney failure, arthritis, right knee replacement, hyperlipidemia, GERD who is an inpatient. Nurse reported two seizures, lasting 2 and 10 minutes, the last one 10 minutes before histotechnologist supervisor arrived. Patient was given Keppra and Dilantin. This EEG was requested for seizures. EEG Interpretation This EEG was recorded in the obtunded state only. The EEG shows nearly continuous spike and wake activity on the right with frequent generalization to the left. The background in between, noted more on the left, shows disorganization and slowing in the delta and theta range, with some intermixed alpha and beta frequencies. Photic stimulation resulted in no significant changes. There were no changes noted with passive eye opening/closing. The video showed a patient with eyes closed and mouth ajar; no clinical correlation was noted. The EKG showed a mainly regular rhythm but with rare irregular beats. EEG Classification Non-convulsive status epilepticus EKG intermittent irregular rhythm EEG Impression This EEG is severely abnormal. It shows ongoing seizure activity electrographically on the right with intermittent generalization with brief periods of no seizure activity; there is no clinical correlation nor clinical recovery in the patient. This is consistent with non-convulsive status epilepticus. 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 These findings were discussed with Dr. Mcarthur on the phone at ~15:35h eastern time. The EKG showed intermittent irregular beats which may require further investigation. INTERPRETING NEUROLOGIST: Arminda Amin MD, [facility]
[2018-08-18 16:16] LABS: WHITE BLOOD CELL,CSF 5 /uL (0-5)
[2018-08-18] MEDS ORDERED: ONDANSETRON HCL INJ/PF 4 MG/2 ML SDV ONE (16:37)
[2018-08-18] MEDS: MIDAZOLAM HCL 50 MG/100 ML RTUINJ IV PRN ×2 (16:47→23:31)
[2018-08-18] MEDS ORDERED: PROPOFOL INJ 200 MG/20 ML VIAL IV ONE (16:52)
--- NOTE | 2018-08-18 17:12 | RADIOLOGY REPORT (SQ) ---
EXAM DESCRIPTION: CHEST SINGLE VIEW COMPLETED DATE/TIME: 08/18/2018 5:01 pm REASON FOR STUDY: ETT placement COMPARISON: 08/10/2018 EXAM PARAMETERS: NUMBER OF VIEWS: One view. TECHNIQUE: Single frontal radiographic view of the chest acquired. RADIATION DOSE: NA LIMITATIONS: None. FINDINGS: LUNGS AND PLEURA: No opacities, masses or pneumothorax. No pleural effusion. MEDIASTINUM AND HILAR STRUCTURES: No masses. Contour normal. HEART AND VASCULAR STRUCTURES: Heart normal in size. Normal vasculature. BONES: No acute findings. HARDWARE: None in the chest. OTHER: There is an endotracheal tube present with the tip projecting 1.6 cm above the level of the ca kyle. An enteric tube is present with the tip and side port projecting over the expected region of t he stomach. IMPRESSION: No acute findings in the chest. Tubes as above TECHNICAL DOCUMENTATION: JOB ID: [id number] [email or web address]- All Rights Reserved Reading location - IP/workstation name: [email or web address]
[2018-08-18 17:37] LABS: ARTERIAL BLOOD BASE EXCESS -1.2 mmol/L; ARTERIAL BLOOD H2CO3 1.13 mmol/L (1.05-1.35); ARTERIAL BLOOD HCO3 23.1 mmol/L (20-24); ARTERIAL BLOOD PCO2 37.6 mmHg (35-45); ARTERIAL BLOOD PH 7.41 (7.35-7.45); ARTERIAL BLOOD PO2 151.1 mmHg (80-100); ARTERIAL BLOOD TOTAL CO2 24.3 mmol/L (21-25)
[2018-08-18 17:38] LABS: ARTERIAL BLOOD FIO2 50%
--- NOTE | 2018-08-18 17:48 | PDOC PROGRESS REPORT ---
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, Reason For Visit: HYPERCALCEMIA, NEW ONSET SEIZURE Physical Exam Vital Signs: Temp Pulse Resp BP Pulse Ox 98.6 F 97 21 H 167/81 H 95 08/18/18 16:00 08/18/18 16:00 08/18/18 16:00 08/18/18 16:00 08/18/18 16:00 Intake & Output 08/17/18 08/18/18 08/19/18 06:59 06:59 06:59 Intake Total 875 1268 Output Total 1250 580 Balance -375 688 Weight 101 kg General appearance: PRESENT: no acute distress Eye exam: PRESENT: PERRLA Respiratory exam: PRESENT: clear to auscultation heidi Cardiovascular exam: PRESENT: +S1, +S2 GI/Abdominal exam: PRESENT: soft Neurological exam: PRESENT: alert Results Laboratory Results: 08/18/18 08:08 08/18/18 08:08 08/17/18 08/17/18 08/17/18 17:35 17:35 20:21 WBC RBC Hgb Hct MCV MCH MCHC RDW Plt Count Seg Neutrophils % Lymphocytes % Monocytes % Eosinophils % Basophils % Absolute Neutrophils Absolute Lymphocytes Absolute Monocytes Absolute Eosinophils Absolute Basophils Carbonic Acid HCO3/H2CO3 Ratio ABG pH ABG pCO2 ABG pO2 ABG HCO3 ABG O2 Saturation ABG Base Excess FiO2 Sodium 138.9 Potassium 4.0 Chloride 106 Carbon Dioxide 19 L Anion Gap 14 BUN 13 Creatinine 1.07 Est GFR ( Amer) > 60 Est GFR (Non-Af Amer) 50 L Glucose 140 H Calcium 11.7 H Phosphorus Magnesium 1.1 L* Total Bilirubin AST ALT Alkaline Phosphatase Ammonia Total Protein Albumin Triglycerides Cholesterol LDL Cholesterol Direct VLDL Cholesterol HDL Cholesterol Amylase Lipase TSH Free T4 Urine Color STRAW Urine Appearance CLEAR Urine pH 5.0 Ur Specific [place]emp[place] 1.010 Urine Protein NEGATIVE Urine Glucose (UA) NEGATIVE Urine Ketones NEGATIVE Urine Blood MODERATE H Urine Nitrite NEGATIVE Ur Leukocyte Esterase TRACE H Urine WBC (Auto) 2 Urine RBC (Auto) 38 Fluid Tube Number CSF Volume CSF Appearance CSF Color CSF WBC CSF RBC CSF Total Protein 08/17/18 08/17/18 08/17/18 20:46 23:40 23:40 WBC RBC Hgb Hct MCV MCH MCHC RDW Plt Count Seg Neutrophils % Lymphocytes % Monocytes % Eosinophils % Basophils % Absolute Neutrophils Absolute Lymphocytes Absolute Monocytes Absolute Eosinophils Absolute Basophils Carbonic Acid HCO3/H2CO3 Ratio ABG pH ABG pCO2 ABG pO2 ABG HCO3 ABG O2 Saturation ABG Base Excess FiO2 Sodium Potassium Chloride Carbon Dioxide Anion Gap BUN Creatinine Est GFR ( Amer) Est GFR (Non-Af Amer) Glucose Calcium Phosphorus Cancelled Magnesium Cancelled Cancelled Total Bilirubin AST ALT Alkaline Phosphatase Ammonia Cancelled Total Protein Albumin Triglycerides Cholesterol LDL Cholesterol Direct VLDL Cholesterol HDL Cholesterol Amylase Cancelled Lipase Cancelled TSH Free T4 Urine Color Urine Appearance Urine pH Ur Specific [place] Urine Protein Urine Glucose (UA) Urine Ketones Urine Blood Urine Nitrite Ur Leukocyte Esterase Urine WBC (Auto) Urine RBC (Auto) Fluid Tube Number CSF Volume CSF Appearance CSF Color CSF WBC CSF RBC CSF Total Protein 08/17/18 08/18/18 08/18/18 23:40 01:20 01:20 WBC RBC Hgb Hct MCV MCH MCHC RDW Plt Count Seg Neutrophils % Lymphocytes % Monocytes % Eosinophils % Basophils % Absolute Neutrophils Absolute Lymphocytes Absolute Monocytes Absolute Eosinophils Absolute Basophils Carbonic Acid HCO3/H2CO3 Ratio ABG pH ABG pCO2 ABG pO2 ABG HCO3 ABG O2 Saturation ABG Base Excess FiO2 Sodium Potassium Chloride Carbon Dioxide Anion Gap BUN Creatinine Est GFR ( Amer) Est GFR (Non-Af Amer) Glucose Calcium Phosphorus Cancelled Magnesium Cancelled Total Bilirubin AST ALT Alkaline Phosphatase Ammonia Total Protein Albumin Triglycerides Cholesterol LDL Cholesterol Direct VLDL Cholesterol HDL Cholesterol Amylase Cancelled Lipase Cancelled TSH Cancelled Cancelled Free T4 Cancelled Cancelled Urine Color Urine Appearance Urine pH Ur Specific [place] Urine Protein Urine Glucose (UA) Urine Ketones Urine Blood Urine Nitrite Ur Leukocyte Esterase Urine WBC (Auto) Urine RBC (Auto) Fluid Tube Number CSF Volume CSF Appearance CSF Color CSF WBC CSF RBC CSF Total Protein 08/18/18 08/18/18 08/18/18 01:20 08:08 08:08 WBC 6.4 RBC 4.92 Hgb 14.0 Hct 43.4 MCV 88 MCH 28.4 MCHC 32.2 RDW 18.6 H Plt Count 172 Seg Neutrophils % 77.5 Lymphocytes % 15.7 Monocytes % 5.1 Eosinophils % 0.1 Basophils % 1.6 Absolute Neutrophils 5.0 Absolute Lymphocytes 1.0 Absolute Monocytes 0.3 Absolute Eosinophils 0.0 Absolute Basophils 0.1 Carbonic Acid HCO3/H2CO3 Ratio ABG pH ABG pCO2 ABG pO2 ABG HCO3 ABG O2 Saturation ABG Base Excess FiO2 Sodium 138.0 Potassium 4.2 Chloride 101 Carbon Dioxide 25 Anion Gap 12 BUN 14 Creatinine 0.96 Est GFR ( Amer) > 60 Est GFR (Non-Af Amer) 57 L Glucose 156 H Calcium 11.9 H Phosphorus Magnesium Total Bilirubin 0.5 AST 24 ALT 21 Alkaline Phosphatase 95 Ammonia Cancelled Total Protein 7.6 Albumin 4.0 Triglycerides 90 Cholesterol 248.37 H LDL Cholesterol Direct 127 H VLDL Cholesterol 18.0 HDL Cholesterol 104 Amylase Lipase TSH Free T4 Urine Color Urine Appearance Urine pH Ur Specific [place] Urine Protein Urine Glucose (UA) Urine Ketones Urine Blood Urine Nitrite Ur Leukocyte Esterase Urine WBC (Auto) Urine RBC (Auto) Fluid Tube Number CSF Volume CSF Appearance CSF Color CSF WBC CSF RBC CSF Total Protein 08/18/18 08/18/18 08/18/18 08:08 08:08 08:08 WBC RBC Hgb Hct MCV MCH MCHC RDW Plt Count Seg Neutrophils % Lymphocytes % Monocytes % Eosinophils % Basophils % Absolute Neutrophils Absolute Lymphocytes Absolute Monocytes Absolute Eosinophils Absolute Basophils Carbonic Acid HCO3/H2CO3 Ratio ABG pH ABG pCO2 ABG pO2 ABG HCO3 ABG O2 Saturation ABG Base Excess FiO2 Sodium Potassium Chloride Carbon Dioxide Anion Gap BUN Creatinine Est GFR ( Amer) Est GFR (Non-Af Amer) Glucose Calcium Phosphorus 2.1 L Magnesium 1.5 L Total Bilirubin AST ALT Alkaline Phosphatase Ammonia 24.0 Total Protein Albumin Triglycerides Cholesterol LDL Cholesterol Direct VLDL Cholesterol HDL Cholesterol Amylase 95 Lipase 197.1 TSH 1.27 Free T4 1.89 Urine Color Urine Appearance Urine pH Ur Specific [place] Urine Protein Urine Glucose (UA) Urine Ketones Urine Blood Urine Nitrite Ur Leukocyte Esterase Urine WBC (Auto) Urine RBC (Auto) Fluid Tube Number CSF Volume CSF Appearance CSF Color CSF WBC CSF RBC CSF Total Protein 08/18/18 08/18/18 08/18/18 13:51 13:51 13:51 WBC RBC Hgb Hct MCV MCH MCHC RDW Plt Count Seg Neutrophils % Lymphocytes % Monocytes % Eosinophils % Basophils % Absolute Neutrophils Absolute Lymphocytes Absolute Monocytes Absolute Eosinophils Absolute Basophils Carbonic Acid HCO3/H2CO3 Ratio ABG pH ABG pCO2 ABG pO2 ABG HCO3 ABG O2 Saturation ABG Base Excess FiO2 Sodium Potassium Chloride Carbon Dioxide Anion Gap BUN Creatinine Est GFR ( Amer) Est GFR (Non-Af Amer) Glucose Calcium Phosphorus Magnesium Total Bilirubin AST ALT Alkaline Phosphatase Ammonia Total Protein Albumin Triglycerides Cholesterol LDL Cholesterol Direct VLDL Cholesterol HDL Cholesterol Amylase Lipase TSH Free T4 Urine Color Urine Appearance Urine pH Ur Specific [place] Urine Protein Urine Glucose (UA) Urine Ketones Urine Blood Urine Nitrite Ur Leukocyte Esterase Urine WBC (Auto) Urine RBC (Auto) Fluid Tube Number 3 4 CSF Volume 7.5 7.5 CSF Appearance CLEAR CLEAR CSF Color COLORLESS COLORLESS CSF WBC 5 5 CSF RBC 0 0 CSF Total Protein 69 H 08/18/18 17:20 WBC RBC Hgb Hct MCV MCH MCHC RDW Plt Count Seg Neutrophils % Lymphocytes % Monocytes % Eosinophils % Basophils % Absolute Neutrophils Absolute Lymphocytes Absolute Monocytes Absolute Eosinophils Absolute Basophils Carbonic Acid 1.13 HCO3/H2CO3 Ratio 20:1 ABG pH 7.41 ABG pCO2 37.6 ABG pO2 151.1 H ABG HCO3 23.1 ABG O2 Saturation 99.0 H ABG Base Excess -1.2 FiO2 50% Sodium Potassium Chloride Carbon Dioxide Anion Gap BUN Creatinine Est GFR ( Amer) Est GFR (Non-Af Amer) Glucose Calcium Phosphorus Magnesium Total Bilirubin AST ALT Alkaline Phosphatase Ammonia Total Protein Albumin Triglycerides Cholesterol LDL Cholesterol Direct VLDL Cholesterol HDL Cholesterol Amylase Lipase TSH Free T4 Urine Color Urine Appearance Urine pH Ur Specific [place] Urine Protein Urine Glucose (UA) Urine Ketones Urine Blood Urine Nitrite Ur Leukocyte Esterase Urine WBC (Auto) Urine RBC (Auto) Fluid Tube Number CSF Volume CSF Appearance CSF Color CSF WBC CSF RBC CSF Total Protein 08/17/18 08/17/18 08/17/18 12:12 12:12 20:46 Creatine Kinase 49 Cancelled CK-MB (CK-2) 0.63 Troponin I < 0.012 NT-Pro-B Natriuret Pep 08/17/18 08/17/18 08/17/18 23:40 23:40 23:40 Creatine Kinase Cancelled CK-MB (CK-2) Cancelled Troponin I Cancelled NT-Pro-B Natriuret Pep Cancelled 08/18/18 08/18/18 08/18/18 01:20 01:20 08:08 Creatine Kinase Cancelled 50 CK-MB (CK-2) Cancelled Troponin I Cancelled NT-Pro-B Natriuret Pep Cancelled 08/18/18 08/18/18 08:08 11:19 Creatine Kinase CK-MB (CK-2) 0.85 Troponin I Cancelled 0.013 NT-Pro-B Natriuret Pep 2480 H Impressions: Head MRI 08/17/18 00:00 IMPRESSION: Significantly limited examination secondary to motion artifact. Regional area of hyperintense T2/FLAIR signal about the right cerebellar hemisphere without concomitant diffusion restriction, suspicious for a subacute infarct. Superimposed mild chronic microvascular ischemic change. However, additional patchy nodular foci of hyperintense T2/FLAIR signal located about both occipital lobes is somewhat atypical in configuration for chronic microvascular ischemic change. Correlation with a contrast-enhanced MR once the patient is able would be of benefit for further assessment. Mild generalized atrophy. copyright 2010 [employer]- All Rights Reserved Head CT 08/17/18 11:48 IMPRESSION: NO ACUTE INTRACRANIAL IMAGING FINDINGS. No interval change since the recent CT scan EVIDENCE OF ACUTE STROKE: NO. Guidance Fluoroscopy 08/18/18 00:00 IMPRESSION: Lumbar puncture under fluoroscopy. No immediate complication. Lumbar Puncture 08/18/18 09:35 IMPRESSION: Lumbar puncture under fluoroscopy. No immediate complication. Chest X-Ray 08/18/18 16:30 IMPRESSION: No acute findings in the chest. 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, status post lumbar puncture (2) Hypertensive urgency Is this a current diagnosis for this admission?: Yes Plan: Continue IV Cardene infusion (3) Secondary hyperparathyroidism Is this a current diagnosis for this admission?: Yes (4) Chronic kidney disease, stage 3 Is this a current diagnosis for this admission?: Yes (5) Respiratory failure Qualifiers: Chronicity: unspecified Respiratory failure complication: unspecified whether with hypoxia or hypercapnia Qualified Code(s): J96.90 - Respiratory failure, unspecified, unspecified whether with hypoxia or hypercapnia Is this a current diagnosis for this admission?: Yes Plan: Patient intubated to protect airway
[2018-08-18] MEDS ORDERED: LEVETIRACETAM 500 MG/NACL-ISO 500 MG/100 ML RTUPB IV SCH (18:00)
--- NOTE | 2018-08-18 18:24 | RADIOLOGY REPORT (SQ) ---
EXAM DESCRIPTION: CHEST SINGLE VIEW COMPLETED DATE/TIME: 08/18/2018 6:13 pm REASON FOR STUDY: Central Line Placement COMPARISON: 08/18/2018 at 1700 hours NUMBER OF VIEWS: One view. TECHNIQUE: Single frontal radiographic view of the chest acquired. LIMITATIONS: None. FINDINGS: Central venous access catheter placed via right IJ approach. Catheter tip at right atriu m. No pneumothorax. Radiographic appearance of the chest otherwise stable, endotracheal tube tip ove rlies the lower 3rd of the trachea. . IMPRESSION: CENTRAL VENOUS ACCESS CATHETER IN APPROPRIATE LOCATION. NO PNEUMOTHORAX. NEW CENTRAL L INE. Central venous access catheter placed via right IJ approach. Catheter tip at right atrium. No pneum othorax. Radiographic appearance of the chest otherwise stable, endotracheal tube tip overlies the lo wer 3rd of the trachea. TECHNICAL DOCUMENTATION: JOB ID: [id number] [id number] 2010 [employer]- All Rights Reserved Reading location - IP/workstation name: [email or web address]
[2018-08-18] MEDS ORDERED: PHENYTOIN SODIUM INJ/PF 250 MG/5 ML SDV IV ONE (19:00)
[2018-08-18] MEDS ORDERED: NORMAL SALINE INJ/PF 0.9% 10 ML SDV IV PRN (19:15)
--- NOTE | 2018-08-18 20:20 | PDOC TRANSFER SUMMARY ---
General Admission Date/PCP: 08/17/18 15:05 MARY RASHID MD Transfer Date: 08/18/18 Accepting Facility: [facility] Resuscitation Status: Full Code - Transfer Diagnosis (1) Refractory complex partial status epilepticus Is this a current diagnosis for this admission?: Yes (2) Status epilepticus Is this a current diagnosis for this admission?: Yes (3) Hypertensive urgency Is this a current diagnosis for this admission?: Yes (4) Secondary hyperparathyroidism Is this a current diagnosis for this admission?: Yes (5) Chronic kidney disease, stage 3 Is this a current diagnosis for this admission?: Yes (6) Respiratory failure Is this a current diagnosis for this admission?: Yes - Transfer Medications Home Medications: Allopurinol [Zyloprim 100 mg Tablet] 100 mg PO QAM 08/10/18 Atorvastatin Calcium [Lipitor 10 mg Tablet] 10 mg PO QAM 08/10/18 Calcitriol [Rocaltrol 0.5 mcg Capsule] 0.5 mcg PO QAM 08/10/18 Ferrous Sulfate [Feosol 325 mg Tablet] 325 mg PO QHS 08/10/18 Gabapentin [Neurontin 300 mg Capsule] 300 mg PO Q8 08/10/18 Levothyroxine Sodium [Synthroid 0.075 mg Tablet] 0.075 mg PO Q6AM 08/10/18 Metoprolol Succinate [Toprol Xl] 200 mg PO Q6AM 08/10/18 Olmesartan/Amlodipin/Hcthiazid [Tribenzor 40-5-25 mg Tablet] 1 tab PO QAM 08/10/18 Sertraline HCl [Zoloft 50 mg Tablet] 50 mg PO QAM 08/10/18 Transfer Medications: Current Medications Allopurinol (Zyloprim 100 Mg Tablet) 100 mg NG QAM SONYA Stop: 09/16/18 17:59 Amlodipine Besylate (Norvasc 5 Mg Tablet) 5 mg NG QAM SONYA Stop: 09/17/18 07:59 Atorvastatin Calcium (Lipitor 10 Mg Tablet) 10 mg NG QAM SONYA Stop: 09/16/18 17:59 Dextrose (Dextrose Inj 50% Syringe (25 Gm/50 Ml)) 12.5 gm IV PRN PRN; Protocol PRN Reason: FOR BG 50-69 IN ALERT PATIENT Stop: 09/17/18 08:07 Dextrose (Dextrose Inj 50% Syringe (25 Gm/50 Ml)) 25 gm IV PRN PRN; Protocol PRN Reason: See Label Comments Stop: 09/17/18 08:07 Ferrous Sulfate (Ferrous Sulfate Liquid 300 Mg/5 Ml Udcup) 300 mg NG QHS [facility] Stop: 09/17/18 21:59 Gabapentin (Neurontin 300 Mg Capsule) 300 mg NG Q8 SONYA Stop: 09/16/18 21:59 Glucagon (Glucagen Inj 1 Mg Vial) 1 mg SUBCUT PRN PRN; Protocol PRN Reason: Evaluate for BG < 70 Stop: 09/17/18 08:07 Glucose (Glutose 40% Gel 15 Gm Tube) 15 gm PO PRN PRN; Protocol PRN Reason: For BG 50-69 in Alert Patient Stop: 09/17/18 08:07 Glucose (Glutose 40% Gel 15 Gm Tube) 30 gm PO PRN PRN; Protocol PRN Reason: FOR BG < 50 IN ALERT PATIENT Stop: 09/17/18 08:07 Heparin Sodium (Porcine) (Heparin Inj 5,000 Units/Ml 1 Ml Syringe) 5,000 unit SUBCUT Q8 [facility] Stop: 09/16/18 19:59 Last Admin: 08/18/18 14:18 Dose: Not Given Documented by: Heparin Sodium (Porcine) (Heparin Flush 10 Unit/Ml 5 Ml Disp.Syrg) 30 unit IV Q8 [facility] Stop: 09/17/18 21:59 Heparin Sodium (Porcine) (Heparin Flush 10 Unit/Ml 5 Ml Disp.Syrg) 30 unit IV .AFTER EACH USE PRN PRN Reason: AFTER EACH INTERMITTENT USE Stop: 09/17/18 19:14 Hydrochlorothiazide (Hydrodiuril 25 Mg Tablet) 25 mg NG QAM [facility] Stop: 09/17/18 07:59 Lactated Ringer's (Lactated Ringers 1000 Ml Iv Soln) 1,000 mls @ 100 mls/hr IV CONTINUOUS PRN PRN Reason: THIS MED IS NOT "PRN" Stop: 09/16/18 17:03 Last Admin: 08/18/18 11:12 Dose: 100 mls/hr Documented by: Nicardipine HCl (Cardene 20 Mg/200 Ml Premix Bag) 20 mg in 200 mls @ 0 mls/hr IV CONTINUOUS PRN; Protocol PRN Reason: THIS MED IS NOT "PRN" Stop: 09/16/18 20:44 Acyclovir Sodium 750 mg/ (Sodium Chloride) 265 mls @ 265 mls/hr IV Q8A [facility] Stop: 08/25/18 10:59 Last Admin: 08/18/18 18:57 Dose: 265 mls/hr, 265 mls/hr Documented by: Levetiracetam (Keppra Rtu 1000 Mg/Nacl-Iso 100 Ml Premix) 1,000 mg in 100 mls @ 400 mls/hr IV Q12 [facility]ON[facility] Stop: 09/17/18 10:59 Last Infusion: 08/18/18 10:41 Dose: Infused Documented by: Midazolam HCl (Versed Rtu 50 Mg/100 Ml Premix Bag) 50 mg in 100 mls @ 0 mls/hr IV CONTINUOUS PRN; Protocol PRN Reason: THIS MED IS NOT "PRN" Stop: 08/25/18 15:51 Last Titration: 08/18/18 18:19 Dose: 8 mg/hr, 16 mls/hr Documented by: Levothyroxine Sodium (Synthroid 0.075 Mg Tablet) 0.075 mg NG Q6AM [facility] Stop: 09/17/18 05:59 Lorazepam (Ativan Inj 2 Mg/1 Ml Vial) 2 mg IV Q4HP PRN PRN Reason: FOR SEIZURES Stop: 08/24/18 20:44 Last Admin: 08/18/18 09:23 Dose: 2 mg Documented by: Losartan Potassium (Cozaar 50 Mg Tablet) 100 mg NG QAM [facility] Stop: 09/17/18 07:59 Metoprolol Succinate (Toprol Xl 50 Mg Tab.Sr) 200 mg PO Q6AM [facility] Stop: 09/16/18 17:59 Last Admin: 08/18/18 05:21 Dose: Not Given Documented by: Morphine Sulfate (Morphine 10 Mg/Ml Inj) 1 mg IV Q4HP PRN PRN Reason: FOR PAIN Stop: 08/24/18 20:44 Pharmacy Profile Note (Medication Communication Order) 1 each .NOTICE NR Stop: 09/17/18 15:59 Sertraline HCl (Zoloft 50 Mg Tablet) 50 mg NG QAM [facility] Stop: 09/17/18 07:59 Sodium Chloride (Nacl 0.9% Inj/Pf 10 Ml Sdv) 10 ml IV .AFTER EACH USE PRN PRN Reason: AFTER EACH INTERMITTENT USE Stop: 09/17/18 19:14 - Allergies Allergies/Adverse Reactions: steriods Allergy (Uncoded 08/10/18 12:33) steroids Adverse Reaction (Intermediate, Uncoded 08/10/18 12:33) Hospital Course Hospital Course: Patient was admitted for the management of refractory status epilepticus, she has a history of chronic kidney disease stage III, secondary hyperparathyroidism, in the emergency room yesterday when she presented she was found to have hypercalcemia is most likely from calcitriol that she is on for secondary hyperparathyroidism. Patient had a witness clonic tonic seizure yesterday requiring IV lorazepam, Dilantin subsequently Keppra IV. EEG was done that demonstrated nonconvulsive seizure activity patient was started on Versed drip and she was also intubated on mechanical ventilation to protect airway. 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 She has no history of seizure, this is new onset seizure Physical Exam Vital Signs: Temp Pulse Resp BP Pulse Ox 98.6 F 99 16 192/87 H 99 08/18/18 18:00 08/18/18 18:00 08/18/18 18:11 08/18/18 18:12 08/18/18 18:12 Intake & Output 08/17/18 08/18/18 08/19/18 06:59 06:59 06:59 Intake Total 875 1279 Output Total 1250 605 Balance -375 674 Weight 101 kg Eye exam: PRESENT: PERRLA Respiratory exam: PRESENT: clear to auscultation heidi Cardiovascular exam: PRESENT: +S1, +S2 GI/Abdominal exam: PRESENT: soft Results Laboratory Results: 08/18/18 08:08 08/18/18 08:08 08/17/18 08/17/18 08/17/18 20:21 20:46 23:40 WBC RBC Hgb Hct MCV MCH MCHC RDW Plt Count Seg Neutrophils % Lymphocytes % Monocytes % Eosinophils % Basophils % Absolute Neutrophils Absolute Lymphocytes Absolute Monocytes Absolute Eosinophils Absolute Basophils Carbonic Acid HCO3/H2CO3 Ratio ABG pH ABG pCO2 ABG pO2 ABG HCO3 ABG O2 Saturation ABG Base Excess FiO2 Sodium Potassium Chloride Carbon Dioxide Anion Gap BUN Creatinine Est GFR ( Amer) Est GFR (Non-Af Amer) Glucose Calcium Phosphorus Cancelled Magnesium Cancelled Cancelled Total Bilirubin AST ALT Alkaline Phosphatase Ammonia Total Protein Albumin Triglycerides Cholesterol LDL Cholesterol Direct VLDL Cholesterol HDL Cholesterol Amylase Cancelled Lipase Cancelled TSH Free T4 Urine Color STRAW Urine Appearance CLEAR Urine pH 5.0 Ur Specific [place] 1.010 Urine Protein NEGATIVE Urine Glucose (UA) NEGATIVE Urine Ketones NEGATIVE Urine Blood MODERATE H Urine Nitrite NEGATIVE Ur Leukocyte Esterase TRACE H Urine WBC (Auto) 2 Urine RBC (Auto) 38 Fluid Tube Number CSF Volume CSF Appearance CSF Color CSF WBC CSF RBC CSF Total Protein 08/17/18 08/17/18 08/18/18 23:40 23:40 01:20 WBC RBC Hgb Hct MCV MCH MCHC RDW Plt Count Seg Neutrophils % Lymphocytes % Monocytes % Eosinophils % Basophils % Absolute Neutrophils Absolute Lymphocytes Absolute Monocytes Absolute Eosinophils Absolute Basophils Carbonic Acid HCO3/H2CO3 Ratio ABG pH ABG pCO2 ABG pO2 ABG HCO3 ABG O2 Saturation ABG Base Excess FiO2 Sodium Potassium Chloride Carbon Dioxide Anion Gap BUN Creatinine Est GFR ( Amer) Est GFR (Non-Af Amer) Glucose Calcium Phosphorus Magnesium Total Bilirubin AST ALT Alkaline Phosphatase Ammonia Cancelled Total Protein Albumin Triglycerides Cholesterol LDL Cholesterol Direct VLDL Cholesterol HDL Cholesterol Amylase Lipase TSH Cancelled Cancelled Free T4 Cancelled Cancelled Urine Color Urine Appearance Urine pH Ur Specific [place] Urine Protein Urine Glucose (UA) Urine Ketones Urine Blood Urine Nitrite Ur Leukocyte Esterase Urine WBC (Auto) Urine RBC (Auto) Fluid Tube Number CSF Volume CSF Appearance CSF Color CSF WBC CSF RBC CSF Total Protein 08/18/18 08/18/18 08/18/18 01:20 01:20 08:08 WBC 6.4 RBC 4.92 Hgb 14.0 Hct 43.4 MCV 88 MCH 28.4 MCHC 32.2 RDW 18.6 H Plt Count 172 Seg Neutrophils % 77.5 Lymphocytes % 15.7 Monocytes % 5.1 Eosinophils % 0.1 Basophils % 1.6 Absolute Neutrophils 5.0 Absolute Lymphocytes 1.0 Absolute Monocytes 0.3 Absolute Eosinophils 0.0 Absolute Basophils 0.1 Carbonic Acid HCO3/H2CO3 Ratio ABG pH ABG pCO2 ABG pO2 ABG HCO3 ABG O2 Saturation ABG Base Excess FiO2 Sodium Potassium Chloride Carbon Dioxide Anion Gap BUN Creatinine Est GFR ( Amer) Est GFR (Non-Af Amer) Glucose Calcium Phosphorus Cancelled Magnesium Cancelled Total Bilirubin AST ALT Alkaline Phosphatase Ammonia Cancelled Total Protein Albumin Triglycerides Cholesterol LDL Cholesterol Direct VLDL Cholesterol HDL Cholesterol Amylase Cancelled Lipase Cancelled TSH Free T4 Urine Color Urine Appearance Urine pH Ur Specific [place] Urine Protein Urine Glucose (UA) Urine Ketones Urine Blood Urine Nitrite Ur Leukocyte Esterase Urine WBC (Auto) Urine RBC (Auto) Fluid Tube Number CSF Volume CSF Appearance CSF Color CSF WBC CSF RBC CSF Total Protein 08/18/18 08/18/18 08/18/18 08:08 08:08 08:08 WBC RBC Hgb Hct MCV MCH MCHC RDW Plt Count Seg Neutrophils % Lymphocytes % Monocytes % Eosinophils % Basophils % Absolute Neutrophils Absolute Lymphocytes Absolute Monocytes Absolute Eosinophils Absolute Basophils Carbonic Acid HCO3/H2CO3 Ratio ABG pH ABG pCO2 ABG pO2 ABG HCO3 ABG O2 Saturation ABG Base Excess FiO2 Sodium 138.0 Potassium 4.2 Chloride 101 Carbon Dioxide 25 Anion Gap 12 BUN 14 Creatinine 0.96 Est GFR ( Amer) > 60 Est GFR (Non-Af Amer) 57 L Glucose 156 H Calcium 11.9 H Phosphorus 2.1 L Magnesium 1.5 L Total Bilirubin 0.5 AST 24 ALT 21 Alkaline Phosphatase 95 Ammonia 24.0 Total Protein 7.6 Albumin 4.0 Triglycerides 90 Cholesterol 248.37 H LDL Cholesterol Direct 127 H VLDL Cholesterol 18.0 HDL Cholesterol 104 Amylase 95 Lipase 197.1 TSH Free T4 Urine Color Urine Appearance Urine pH Ur Specific [place] Urine Protein Urine Glucose (UA) Urine Ketones Urine Blood Urine Nitrite Ur Leukocyte Esterase Urine WBC (Auto) Urine RBC (Auto) Fluid Tube Number CSF Volume CSF Appearance CSF Color CSF WBC CSF RBC CSF Total Protein 08/18/18 08/18/18 08/18/18 08:08 13:51 13:51 WBC RBC Hgb Hct MCV MCH MCHC RDW Plt Count Seg Neutrophils % Lymphocytes % Monocytes % Eosinophils % Basophils % Absolute Neutrophils Absolute Lymphocytes Absolute Monocytes Absolute Eosinophils Absolute Basophils Carbonic Acid HCO3/H2CO3 Ratio ABG pH ABG pCO2 ABG pO2 ABG HCO3 ABG O2 Saturation ABG Base Excess FiO2 Sodium Potassium Chloride Carbon Dioxide Anion Gap BUN Creatinine Est GFR ( Amer) Est GFR (Non-Af Amer) Glucose Calcium Phosphorus Magnesium Total Bilirubin AST ALT Alkaline Phosphatase Ammonia Total Protein Albumin Triglycerides Cholesterol LDL Cholesterol Direct VLDL Cholesterol HDL Cholesterol Amylase Lipase TSH 1.27 Free T4 1.89 Urine Color Urine Appearance Urine pH Ur Specific [place] Urine Protein Urine Glucose (UA) Urine Ketones Urine Blood Urine Nitrite Ur Leukocyte Esterase Urine WBC (Auto) Urine RBC (Auto) Fluid Tube Number 3 CSF Volume 7.5 CSF Appearance CLEAR CSF Color COLORLESS CSF WBC 5 CSF RBC 0 CSF Total Protein 69 H 08/18/18 08/18/18 13:51 17:20 WBC RBC Hgb Hct MCV MCH MCHC RDW Plt Count Seg Neutrophils % Lymphocytes % Monocytes % Eosinophils % Basophils % Absolute Neutrophils Absolute Lymphocytes Absolute Monocytes Absolute Eosinophils Absolute Basophils Carbonic Acid 1.13 HCO3/H2CO3 Ratio 20:1 ABG pH 7.41 ABG pCO2 37.6 ABG pO2 151.1 H ABG HCO3 23.1 ABG O2 Saturation 99.0 H ABG Base Excess -1.2 FiO2 50% Sodium Potassium Chloride Carbon Dioxide Anion Gap BUN Creatinine Est GFR ( Amer) Est GFR (Non-Af Amer) Glucose Calcium Phosphorus Magnesium Total Bilirubin AST ALT Alkaline Phosphatase Ammonia Total Protein Albumin Triglycerides Cholesterol LDL Cholesterol Direct VLDL Cholesterol HDL Cholesterol Amylase Lipase TSH Free T4 Urine Color Urine Appearance Urine pH Ur Specific [place] Urine Protein Urine Glucose (UA) Urine Ketones Urine Blood Urine Nitrite Ur Leukocyte Esterase Urine WBC (Auto) Urine RBC (Auto) Fluid Tube Number 4 CSF Volume 7.5 CSF Appearance CLEAR CSF Color COLORLESS CSF WBC 5 CSF RBC 0 CSF Total Protein 08/17/18 08/17/18 08/17/18 12:12 12:12 20:46 Creatine Kinase 49 Cancelled CK-MB (CK-2) 0.63 Troponin I < 0.012 NT-Pro-B Natriuret Pep 08/17/18 08/17/18 08/17/18 23:40 23:40 23:40 Creatine Kinase Cancelled CK-MB (CK-2) Cancelled Troponin I Cancelled NT-Pro-B Natriuret Pep Cancelled 08/18/18 08/18/18 08/18/18 01:20 01:20 08:08 Creatine Kinase Cancelled 50 CK-MB (CK-2) Cancelled Troponin I Cancelled NT-Pro-B Natriuret Pep Cancelled 08/18/18 08/18/18 08:08 11:19 Creatine Kinase CK-MB (CK-2) 0.85 Troponin I Cancelled 0.013 NT-Pro-B Natriuret Pep 2480 H Impressions: Head MRI 08/17/18 00:00 IMPRESSION: Significantly limited examination secondary to motion artifact. Regional area of hyperintense T2/FLAIR signal about the right cerebellar hemisphere without concomitant diffusion restriction, suspicious for a subacute infarct. Superimposed mild chronic microvascular ischemic change. However, additional patchy nodular foci of hyperintense T2/FLAIR signal located about both occipital lobes is somewhat atypical in configuration for chronic microvascular ischemic change. Correlation with a contrast-enhanced MR once the patient is able would be of benefit for further assessment. Mild generalized atrophy. copyright 2011 [employer]- All Rights Reserved Head CT 08/17/18 11:48 IMPRESSION: NO ACUTE INTRACRANIAL IMAGING FINDINGS. No interval change since the recent CT scan EVIDENCE OF ACUTE STROKE: NO. Guidance Fluoroscopy 08/18/18 00:00 IMPRESSION: Lumbar puncture under fluoroscopy. No immediate complication. Lumbar Puncture 08/18/18 09:35 IMPRESSION: Lumbar puncture under fluoroscopy. No immediate complication. Chest X-Ray 08/18/18 17:47 IMPRESSION: CENTRAL VENOUS ACCESS CATHETER IN APPROPRIATE LOCATION. NO PNEUMOTHORAX. NEW CENTRAL LINE. Central venous access catheter placed via right IJ approach. Catheter tip at right atrium. No pneumothorax. Radiographic appearance of the chest otherwise stable, endotracheal tube tip overlies the lower 3rd of the trachea.
[2018-08-18] MEDS ORDERED: LOSARTAN POTASSIUM 50 MG TABLET NG ONE (20:45)
[2018-08-18] MEDS ORDERED: AMLODIPINE BESYLATE 5 MG TABLET NG ONE (20:45)
[2018-08-18] MEDS ORDERED: HYDROCHLOROTHIAZIDE 25 MG TABLET NG ONE (20:45)
[2018-08-18] MEDS ORDERED: METOPROLOL SUCCINATE 50 MG TAB.SR.24H PO ONE (20:45)
[2018-08-18 21:11] LABS: CREATINE KINASE MB 1.11 ng/mL (<4.55); TROPONIN I 0.025 ng/mL
[2018-08-18] MEDS ORDERED: MAGNESIUM SULFATE/D5W 1 GM/100 ML RTUPB IV ONE (21:15)
[2018-08-18] MEDS ORDERED: FERROUS SULFATE LIQUID 300 MG/5 ML UDC NG SCH (22:00)
[2018-08-18] MEDS ORDERED: GABAPENTIN 300 MG CAPSULE NG SCH (22:00)
[2018-08-18 23:37] VITALS: BP 166/80
[2018-08-19] MEDS ORDERED: LEVOTHYROXINE SODIUM 0.075 MG TABLET NG SCH (06:00)
[2018-08-19] MEDS ORDERED: ATORVASTATIN CALCIUM 10 MG TABLET NG SCH (08:00)
[2018-08-19] MEDS ORDERED: LOSARTAN POTASSIUM 50 MG TABLET NG SCH (08:00)
[2018-08-19] MEDS ORDERED: SERTRALINE HCL 50 MG TABLET NG SCH (08:00)
[2018-08-19] MEDS ORDERED: ALLOPURINOL 100 MG TABLET NG SCH (08:00)
[2018-08-19] MEDS ORDERED: HYDROCHLOROTHIAZIDE 25 MG TABLET NG SCH (08:00)
[2018-08-19] MEDS ORDERED: AMLODIPINE BESYLATE 5 MG TABLET NG SCH (08:00)
[2018-08-21 13:36] LABS: HSV I DNA Negative (Negative)
[2018-08-22 07:11] LABS: HSV II DNA Negative (Negative)
--- NOTE | 2018-08-22 12:30 | PDOC CONSULTATION ---
Consultation Consult Date: 08/18/18 Attending physician:: MARY RASHID Provider Consulted: MELLO OHARA Consult reason:: failure status epilepticus History of Present Illness Admission Date/PCP: 08/17/18 15:05 MARY RASHID MD History of Present Illness: IVY CLAIRE is a 77 year old female presented to the emergency room in obtunded and was admitted for poor mental status subsequently she began to seize and seizures were not controlled she was intubated and serial EEG suggested she continue disease currently intubated and sedated in ICU Past Medical History Cardiac Medical History: Reports: Hyperlipidema, Hypertension, Pulmonary Embolism - 2 blood clots in her lungs a few years ago Denies: Atrial Fibrillation, Congestive Heart Failure, Myocardial Infarction Pulmonary Medical History: Reports: Bronchitis Denies: Asthma, Chronic Obstructive Pulmonary Disease (COPD), Pneumonia, T uberculosis Neurological Medical History: Denies: Seizures Endocrine Medical History: Reports: Hypothyroidism Renal/ Medical History: Reports: Chronic Kidney Disease, Other - Chronic kidney disease stage III Denies: End Stage Renal Disease Malignancy Medical History: Denies: Leukemia, Lung Cancer GI Medical History: Denies: Hepatitis, Hiatal Hernia Musculoskeltal Medical History: Reports: Arthritis, Gout Denies: Fibromyalgia Psychiatric Medical History: Reports: Depression Hematology: Reports: Anemia Denies: Hemophilia, Sickle Cell Disease Infectious Medical History: Denies: HIV Past Surgical History Past Surgical History: Reports: Orthopedic Surgery - R knee replacement Denies: Amputation, Appendectomy, Section, Cholecystectomy, Coronary Artery Bypass Graft, Gastric Bypass Surgery, Herniorrhaphy, Hysterectomy, Mastectomy, Pacemaker, Tonsillectomy, Tubal Ligation Social History Smoking Status: Former Smoker Frequency of Alcohol Use: None Hx Recreational Drug Use: No Drugs: None Hx Prescription Drug Abuse: No - Advance Directive Resuscitation Status: Full Code Family History Parental Family History Reviewed: No Children Family History Reviewed: No Sibling(s) Family History Reviewed.: No Medication/Allergy Home Medications: RX: Allopurinol [Zyloprim 100 mg Tablet] 100 mg PO QAM 08/10/18 RX: Atorvastatin Calcium [Lipitor 10 mg Tablet] 10 mg PO QAM 08/10/18 RX: Calcitriol [Rocaltrol 0.5 mcg Capsule] 0.5 mcg PO QAM 08/10/18 RX: Ferrous Sulfate [Feosol 325 mg Tablet] 325 mg PO QHS 08/10/18 RX: Gabapentin [Neurontin 300 mg Capsule] 300 mg PO Q8 08/10/18 RX: Levothyroxine Sodium [Synthroid 0.075 mg Tablet] 0.075 mg PO Q6AM 08/10/18 RX: Metoprolol Succinate [Toprol Xl] 200 mg PO Q6AM 08/10/18 RX: Olmesartan/Amlodipin/Hcthiazid [Tribenzor 40-5-25 mg Tablet] 1 tab PO QAM RX: Sertraline HCl [Zoloft 50 mg Tablet] 50 mg PO QAM 08/10/18 Allergies/Adverse Reactions: steriods Allergy (Uncoded 08/10/18 12:33) steroids Adverse Reaction (Intermediate, Uncoded 08/10/18 12:33) Review of Systems ROS unobtainable: Due to endotracheal tube, Due to mental status Physical Exam Vital Signs: Temp Pulse Resp BP Pulse Ox 99.0 F 109 H 18 166/80 H 100 08/18/18 22:00 08/18/18 20:00 08/18/18 23:27 08/18/18 23:27 08/18/18 23:50 General appearance: PRESENT: no acute distress, disheveled, obese. ABSENT: cooperative Head exam: PRESENT: atraumatic, normocephalic Eye exam: PRESENT: conjunctiva pale. ABSENT: EOMI, nystagmus, periorbital swelling Mouth exam: PRESENT: dry mucosa, neck supple, tongue midline, other - ET tube Neck exam: ABSENT: carotid bruit, full ROM, JVD, lymphadenopathy, meningismus, tenderness, thyromegaly, tracheal deviation, tracheostomy, other Respiratory exam: PRESENT: decreased breath sounds, prolonged expiratory phas, rales, rhonchi, unlabored. ABSENT: retraction, stridor Cardiovascular exam: PRESENT: RRR, +S1, +S2, tachycardia Pulses: PRESENT: normal radial pulses GI/Abdominal exam: PRESENT: soft Gentrourinary exam: PRESENT: indwelling catheter Extremities exam: ABSENT: calf tenderness, clubbing Musculoskeletal exam: ABSENT: ambulatory, deformity, dislocation Neurological exam: ABSENT: awake Skin exam: PRESENT: dry, warm Results Laboratory Results: 08/18/18 08:08 08/18/18 08:08 08/18/18 13:51 Cerebral Spinal Fluid - Csf Gram Stain - Final 08/18/18 13:51 Cerebral Spinal Fluid - Csf CSF Culture - Final NO GROWTH 3 DAYS 08/17/18 08/17/18 08/17/18 12:12 12:12 20:46 Creatine Kinase 49 Cancelled CK-MB (CK-2) 0.63 Troponin I < 0.012 NT-Pro-B Natriuret Pep 08/17/18 08/17/18 08/17/18 23:40 23:40 23:40 Creatine Kinase Cancelled CK-MB (CK-2) Cancelled Troponin I Cancelled NT-Pro-B Natriuret Pep Cancelled 08/18/18 08/18/18 08/18/18 01:20 01:20 08:08 Creatine Kinase Cancelled 50 CK-MB (CK-2) Cancelled Troponin I Cancelled NT-Pro-B Natriuret Pep Cancelled 08/18/18 08/18/18 08/18/18 08:08 11:19 20:21 Creatine Kinase 82 CK-MB (CK-2) 0.85 Troponin I Cancelled 0.013 NT-Pro-B Natriuret Pep 2480 H 08/18/18 20:21 Creatine Kinase CK-MB (CK-2) 1.11 Troponin I 0.025 NT-Pro-B Natriuret Pep Impressions: Head MRI 08/17/18 00:00 IMPRESSION: Significantly limited examination secondary to motion artifact. Regional area of hyperintense T2/FLAIR signal about the right cerebellar hemisphere without concomitant diffusion restriction, suspicious for a subacute infarct. Superimposed mild chronic microvascular ischemic change. However, additional patchy nodular foci of hyperintense T2/FLAIR signal located about both occipital lobes is somewhat atypical in configuration for chronic microvascular ischemic change. Correlation with a contrast-enhanced MR once the patient is able would be of benefit for further assessment. Mild generalized atrophy. copyright 2011 [employer]- All Rights Reserved Head CT 08/17/18 11:48 IMPRESSION: NO ACUTE INTRACRANIAL IMAGING FINDINGS. No interval change since the recent CT scan EVIDENCE OF ACUTE STROKE: NO. Guidance Fluoroscopy 08/18/18 00:00 IMPRESSION: Lumbar puncture under fluoroscopy. No immediate complication. Lumbar Puncture 08/18/18 09:35 IMPRESSION: Lumbar puncture under fluoroscopy. No immediate complication. Chest X-Ray 08/18/18 17:47 IMPRESSION: CENTRAL VENOUS ACCESS CATHETER IN APPROPRIATE LOCATION. NO PNEU MOTHORAX. NEW CENTRAL LINE. Central venous access catheter placed via right IJ approach. Catheter tip at right atrium. No pneumothorax. Radiographic appearance of the chest otherwise stable, endotracheal tube tip overlies the lower 3rd of the trachea. Assessment & Plan - Diagnosis (1) Status epilepticus Is this a current diagnosis for this admission?: Yes Plan: Discussed at length with PCP both agree that the patient is best served to being transferred where there is a neurologist on site (2) Respiratory failure Qualifiers: Chronicity: unspecified Respiratory failure complication: unspecified whether with hypoxia or hypercapnia Qualified Code(s): J96.90 - Respiratory failure, unspecified, unspecified whether with hypoxia or hypercapnia Is this a current diagnosis for this admission?: Yes Plan: Mechanical Ventilation- will ship for neuro to follow - Time Total Critical Time (Minutes): 70
--- NOTE | 2018-08-22 12:40 | Operative Report ---
Bedside Procedure - History of Present Illness History of Present Illness: IVY CLAIRE is a 77 year old female presented to the emergency room in obtunded and was admitted for poor mental status subsequently she began to seize and seizures were not controlled she was intubated and serial EEG suggested she continue disease currently intubated and sedated in ICU Indication for Procedure: Poor venous access, Respiratory Failure Date: 08/18/18 Surgeon: MELLO OHARA - Central Line Right Internal jugular Time completed: 17:45 Consent obtained: Yes Central line pre-insertion: Sterile PPE donned, Betadine prep applied, Chloraprep applied, Sterile drapes applied, Other Central line lumen type: Triple Anesthetic type: 1% Lidocaine Ultrasound guided: Yes Line secured with sutures: Yes Central line post-insertion: Blood return from lumens, Biopatch applied, Sutured, Sterile dressing applied, Position confirmed w/ CXR Complications: No
== END 2018-08-19 01:38 | disposition short-term general hospital (02) | DRG 100 ==
LOC: ER 11:21 → EH 15:05 → 3W 17:16 → ICU 17:50
PROVIDERS: ADMIT Internal Medicine; ATTEND Internal Medicine
PROC: 0BH17EZ Insertion of Endotracheal Airway into Trachea, Via Natural or Artificial Opening (ICD-10-PCS; principal; 2018-08-18)
PROC: 5A1935Z Respiratory Ventilation, Less than 24 Consecutive Hours (ICD-10-PCS; 2018-08-18)
PROC: 02H633Z Insertion of Infusion Device into Right Atrium, Percutaneous Approach (ICD-10-PCS; 2018-08-18)
PROC: 009U3ZX Drainage of Spinal Canal, Percutaneous Approach, Diagnostic (ICD-10-PCS; 2018-08-18)
PROC: B01BZZZ Fluoroscopy of Spinal Cord (ICD-10-PCS; 2018-08-18)
DX: G40.201 Localization-related (focal) (partial) symptomatic epilepsy and epileptic syndromes with complex partial seizures, not intractable, with status epilepticus (principal); J96.00 Acute respiratory failure, unspecified whether with hypoxia or hypercapnia; N25.81 Secondary hyperparathyroidism of renal origin; E83.52 Hypercalcemia; I16.0 Hypertensive urgency; T45.2X5A Adverse effect of vitamins, initial encounter; I87.2 Venous insufficiency (chronic) (peripheral); N18.3 Chronic kidney disease, stage 3 (moderate); I12.9 Hypertensive chronic kidney disease with stage 1 through stage 4 chronic kidney disease, or unspecified chronic kidney disease; M10.9 Gout, unspecified; F32.9 Major depressive disorder, single episode, unspecified; X58.XXXD Exposure to other specified factors, subsequent encounter; Z96.651 Presence of right artificial knee joint; S92.902D Unspecified fracture of left foot, subsequent encounter for fracture with routine healing; Z86.711 Personal history of pulmonary embolism; Z87.891 Personal history of nicotine dependence; Z79.899 Other long term (current) drug therapy; Z79.890 Hormone replacement therapy; Z88.8 Allergy status to other drugs, medicaments and biological substances
CPT/HCPCS: 31500; 36415; 62270; 70450; 70551; 71045; 77003; 80048; 80053; 80061; 80307; 81001; 82140; 82150; 82550; 82553; 82803; 82962; 83036; 83690; 83735; 83880; 83916; 83970; 84100; 84157; 84439; 84443; 84484; 85025; 85610; 85730; 87015; 87040; 87070; 87077; 87086; 87116; 87186; 87205; 87206; 87210; 87252; 87529; 89050; 93005; 93010; 94002; 94003; 95819; 96365; 99285; C1751; J0133; J0330; J1165; J1644; J1953; J2060; J2250; J2270; J2405; J2704; J3475; J3490; J7030; J7050; J7120

== ENCOUNTER 2018-10-03 10:36 | Emergency (ER) | payer MEDICARE, MEDICAID ==
[2018-10-03 12:29] LABS: ABSOLUTE BASOPHILS # (AUTO) 0.1 10^3/uL (0.0-0.2); ABSOLUTE EOSINOPHILS # (AUTO) 0.2 10^3/uL (0.0-0.6); ABSOLUTE LYMPHOCYTES (AUTO) 2.1 10^3/uL (0.5-4.7); ABSOLUTE MONOCYTES (AUTO) 0.5 10^3/uL (0.1-1.4); ABSOLUTE NEUT (AUTO) 3.3 10^3/uL (1.7-8.2); BASOPHILS % (AUTO) 1.3 % (0-2); EOSINOPHILS % (AUTO) 2.5 % (0-6); HEMATOCRIT 35.8 % (36.0-47.0); HEMOGLOBIN 11.5 g/dL (12.0-15.5); LYMPHOCYTES % (AUTO) 33.8 % (13-45); MEAN CORPUSCULAR HEMOGLOBIN 27.7 pg (27.0-33.4); MEAN CORPUSCULAR HGB CONC 32.2 g/dL (32.0-36.0); MEAN CORPUSCULAR VOLUME 86 fl (80-97); MONOCYTES % (AUTO) 8.1 % (3-13); PLATELET COUNT 276 10^3/uL (150-450); RED BLOOD COUNT 4.16 10^6/uL (3.72-5.28); RED CELL DISTRIBUTION WIDTH 20.3 % (11.5-14.0); SEGMENTED NEUTROPHILS % (AUTO) 54.3 % (42-78); TOTAL CELLS COUNTED % (AUTO) 100 %; WHITE BLOOD COUNT 6.1 10^3/uL (4.0-10.5)
[2018-10-03 12:43] LABS: ALANINE AMINOTRANSFERASE 22 U/L (9-52); ALBUMIN 4.1 g/dL (3.5-5.0); ALKALINE PHOSPHATASE 100 U/L (38-126); ANION GAP 14 (5-19); ASPARTATE AMINO TRANSFERASE 23 U/L (14-36); BILIRUBIN,DIRECT 0.4 mg/dL (0.0-0.4); BILIRUBIN,TOTAL 0.5 mg/dL (0.2-1.3); BLOOD UREA NITROGEN 42 mg/dL (7-20); CALCIUM 10.9 mg/dL (8.4-10.2); CARBON DIOXIDE 24 mmol/L (22-30); CHLORIDE 99 mmol/L (98-107); GLUCOSE 85 mg/dL (75-110); POTASSIUM 4.9 mmol/L (3.6-5.0); TOTAL PROTEIN 7.8 g/dL (6.3-8.2)
[2018-10-03 12:44] LABS: CREATINE KINASE < 20 U/L (30-135)
--- NOTE | 2018-10-03 13:29 | ER Document Report ---
Entered by CONNER CABRERA SCRIBE 10/03/18 1102 Acting as scribe for:AMANDA FERREIRA MD ED General - General Chief Complaint: General Weakness Stated Complaint: GENERAL WEAKNESS Time Seen by Provider: 10/03/18 10:41 Primary Care Provider: MARY RASHID MD [Primary Care Provider] - Follow up as needed Notes: Patient is a 78-year-old female brought in via EMS after nursing staff at [facility] noticed that the patient had a tremor (baseline according to patient) and a decreased appetite. Patient states that she "broke her foot in 3 places". Patient has a history of a stroke and seizures. The patient was admitted here on 08/10/2018 following a fall in which she fractur ed the distal metatarsals numbers 2, 3, 4 on the left foot. TRAVEL OUTSIDE OF THE [place] IN LAST 30 DAYS: No - Related Data Allergies/Adverse Reactions: steriods Allergy (Uncoded 08/10/18 12:33) steroids Adverse Reaction (Intermediate, Uncoded 08/10/18 12:33) Past Medical History - General Information source: Patient - Social History Smoking Status: Unknown if Ever Smoked Cigarette use (# per day): No Chew tobacco use (# tins/day): No Smoking Education Provided: No Frequency of alcohol use: None Drug Abuse: None Lives with: [facility] Family History: Reviewed & Not Pertinent - Past Medical History Cardiac Medical History: Reports: Hx Hypercholesterolemia, Hx Hypertension, Hx Pulmonary Embolism - 2 blood clots in her lungs a few years ago Pulmonary Medical History: Reports: Hx Bronchitis Neurological Medical History: Reports: Hx Cerebrovascular Accident - About a year ago. Endocrine Medical History: Reports: Hx Hypothyroidism, Other - Hyperparathyroidism with hypercalcemia Renal/ Medical History: Reports: Hx Renal Insufficiency Musculoskeletal Medical History: Reports Hx Arthritis, Reports Hx Gout Psychiatric Medical History: Reports: Hx Depression Past Surgical History: Reports: Hx Orthopedic Surgery - R knee replacement - Immunizations Hx Diphtheria, Pertussis, Tetanus Vaccination: Yes - <5 years Hx Pneumococcal Vaccination: 04/12/08 Review of Systems - Review of Systems Constitutional: See HPI, Weakness EENT: No symptoms reported Cardiovascular: No symptoms reported Respiratory: No symptoms reported Gastrointestinal: See HPI, Poor appetite Genitourinary: No symptoms reported Female Genitourinary: No symptoms reported Musculoskeletal: No symptoms reported Skin: No symptoms reported Hematologic/Lymphatic: No symptoms reported Neurological/Psychological: See HPI, Tremor -: Yes All other systems reviewed and negative Physical Exam - Vital signs Vitals: BP 120/72 10/03/18 10:58 - Notes Notes: Physical Exam: General: Alert, obese. Appears slightly demented which is baseline according to [facility] records. HEENT: Normocephalic. Atraumatic. PERRL. Extraocular movements intact. Oropharynx clear. Neck: Supple. Non-tender. Respiratory: No respiratory distress. Clear and equal breath sounds bilaterally. Cardiovascular: Regular rate and rhythm. Abdominal: Normal Inspection. Non-tender. No distension. Normal Bowel Sounds. Back: Non-tender. No deformity or step off. Extremities: Moves all four extremities. Upper extremities: Normal inspection. Normal ROM. Lower extremities: Trace edema. Normal ROM. Neurological: AAOx4 with slight dementia. Normal speech. Psychological: Normal affect. Normal Mood. Skin: Warm. Dry. Normal color. Course - Vital Signs Vital signs: Temp Pulse Resp BP Pulse Ox 16 122/71 92 10/03/18 13:00 10/03/18 12:31 10/03/18 13:00 - Laboratory Result Diagrams: 10/03/18 12:00 10/03/18 12:00 Laboratory results interpreted by me: 10/03/18 10/03/18 10/03/18 12:00 12:00 12:20 Hgb 11.5 L Hct 35.8 L RDW 20.3 H BUN 42 H Creatinine 1.71 H Est GFR ( Amer) 35 L Est GFR (Non-Af Amer) 29 L Calcium 10.9 H Creatine Kinase < 20 L Urine Protein 100 H Urine Ketones TRACE H Urine Blood MODERATE H Urine Nitrite POSITIVE H Ur Leukocyte Esterase MODERATE H Discharge - Discharge Clinical Impression: Chronic kidney disease, stage 3 Urinary tract infection Qualifiers: Urinary tract infection type: site unspecified Hematuria presence: with hematuria Qualified Code(s): N39.0 - Urinary tract infection, site not specified; R31.9 - Hematuria, unspecified Condition: Stable Disposition: SNF-Other Additional Instructions: Urinary Tract Infection Your evaluation indicates that you have a urinary tract infection. This is due to germs growing in the bladder. This is a common problem. This infection usually responds quickly to antibiotics. Your antibiotic should be taken exactly as prescribed. Drink plenty of fluids -- three to four quarts a day. Occasionally, a bladder anesthetic will be prescribed to help stop the feeling of urgency until the antibiotic has a chance to clear the infection. This may cause your urine to be dark orange. Certain urine infections require a culture. If the doctor obtained a culture, the results will be back in two days. You should call to see if a change in treatment is needed. A repeat urinalysis after you finish treatment is often recommended. The physician will let you know if further testing is required. Call the doctor if you develop fever, chills, flank pain, inability to urinate, or blood in the urine. Start taking the Levaquin antibiotic tomorrow. Drink plenty of fluids throughout the day in the evening for the next several days. The urine was cultured, so you will be contacted if there is a need to change the antibiotic. Follow-up with your doctor if not improving. RETURN TO THE EMERGENCY ROOM IF ANY NEW OR WORSENING SYMPTOMS. Prescriptions: Levofloxacin [Levaquin 250 mg Tablet] 250 mg PO DAILY #4 tablet Referrals: MARY RASHID MD [Primary Care Provider] - Follow up as needed Scribe Attestation: 10/03/18 11:36 I personally performed the services described in the documentation, reviewed and edited the documentation which was dictated to the scribe in my presence, and it accurately records my words and actions. I personally performed the services described in the documentation, reviewed and edited the documentation which was dictated to the scribe in my presence, and it accurately records my words and actions.
[2018-10-03 13:48] LABS: APPEARANCE,URINE TURBID; BILIRUBIN,URINE NEGATIVE (NEGATIVE); COLOR,URINE YELLOW; GLUCOSE, URINE NEGATIVE (NEGATIVE); KETONES,URINE TRACE mg/dL (NEGATIVE); LEUKOCYTE ESTERASE,URINE MODERATE (NEGATIVE); NITRITE,URINE POSITIVE (NEGATIVE); PROTEIN,URINE 100 mg/dL (NEGATIVE); URINE SPECIFIC GRAVITY 1.019; UROBILINOGEN,URINE NEGATIVE mg/dL (<2.0)
[2018-10-03] MEDS ORDERED: NORMAL SALINE 1000 ML 500 ML IV ONE (14:13)
[2018-10-03] MEDS ORDERED: LEVOFLOXACIN 500 MG/D5W RTU 500 MG/100 ML RTUPB IV ONE (14:14)
[2018-10-03] MEDS ORDERED: ACETAMINOPHEN 325 MG TABLET PO ONE (14:29)
[2018-10-03 16:25] VITALS: BP 102/68
== END 2018-10-03 16:26 ==
LOC: ER 10:36
DX: N39.0 Urinary tract infection, site not specified (principal); R31.9 Hematuria, unspecified; N18.3 Chronic kidney disease, stage 3 (moderate); R53.1 Weakness; R63.0 Anorexia; I10 Essential (primary) hypertension
CPT/HCPCS: 36415; 87086; 82550; 83735; 85025; 87088; 80053; 81001; 84484; 87186; 83605; A9270; J1956; J7030

== ENCOUNTER 2018-11-12 21:16 | Inpatient (IN) | payer MEDICARE, MEDICAID ==
--- NOTE | 2018-11-12 21:38 | ER Document Report ---
ED Seizure - General Stated Complaint: POSSIBLE SEIZURE Time Seen by Provider: 11/12/18 21:21 Primary Care Provider: MARY RASHID MD [Primary Care Provider] - Follow up as needed Notes: Patient is a 78-year-old female that comes emergency department for chief complaint of a seizure. Patient comes from home by EMS. Daughters are at be dside. They state patient is not ambulatory, they were transferring her to a bedside toilet when she started shaking first on the right, and then on the left, she started shaking all over and violently for approximately 1 to 2 minutes, afterwards she closed her eyes. They state that they were still able to direct her and she still was responding throughout this. She also did this once last night. EMS states that on arrival she was awake and not seizing, she was having tremors, they state that initially she seemed less responsive and now she is more alert however. She was witnessed to have an observed seizure for the first time in October while hospitalized here, she was transferred to [place] at that time, she takes Keppra, she follows with Dr. Colon. They state that she was diagnosed with a specific type of seizure but they cannot recall the name. 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 They state they are especially concerned because she has never had seizures this close together. They do not think she had a head injury. She ate last today but states that her behavior has been normal otherwise. Patient is oriented to person, place, but not events. She follows directions. - Related Data Allergies/Adverse Reactions: steriods Allergy (Uncoded 08/10/18 12:33) steroids Adverse Reaction (Intermediate, Uncoded 08/10/18 12:33) Past Medical History - General Information source: Relative - Social History Smoking Status: Never Smoker Frequency of alcohol use: None Drug Abuse: None Lives with: Family Family History: Reviewed & Not Pertinent - Past Medical History Cardiac Medical History: Reports: Hx Hypercholesterolemia, Hx Hypertension, Hx Pulmonary Embolism - 2 blood clots in her lungs a few years ago Denies: Hx Atrial Fibrillation, Hx Congestive Heart Failure, Hx Heart Attack Pulmonary Medical History: Reports: Hx Bronchitis Denies: Hx Asthma, Hx COPD, Hx Pneumonia, Hx Tuberculosis Neurological Medical History: Reports: Hx Cerebrovascular Accident - About a year ago.. Denies: Hx Seizures Endocrine Medical History: Reports: Hx Hypothyroidism Renal/ Medical History: Reports: Hx Renal Insufficiency. Denies: Hx End Stage Renal Disease, Hx Peritoneal Dialysis Malignancy Medical History: Denies: Hx Leukemia, Hx Lung Cancer GI Medical History: Denies: Hx Hepatitis, Hx Hiatal Hernia, Hx Ulcer Musculoskeletal Medical History: Reports Hx Arthritis, Denies Hx Fibromyalgia, Reports Hx Gout Psychiatric Medical History: Reports: Hx Depression Infectious Medical History: Denies: Hx Hepatitis, Hx HIV Past Surgical History: Reports: Hx Orthopedic Surgery - R knee replacement. Denies: Hx Appendectomy, Hx Section, Hx Cholecystectomy, Hx Coronary Artery Bypass Graft, Hx Gastric Bypass Surgery, Hx Herniorrhaphy, Hx Hysterectomy, Hx Mastectomy, Hx Open Heart Surgery, Hx Pacemaker, Hx Tonsillectomy, Hx Tubal Ligation - Immunizations Hx Diphtheria, Pertussis, Tetanus Vaccination: Yes - <5 years Hx Pneumococcal Vaccination: 04/12/08 Review of Systems - Review of Systems Constitutional: No symptoms reported EENT: No symptoms reported Cardiovascular: No symptoms reported Respiratory: No symptoms reported Gastrointestinal: No symptoms reported Genitourinary: No symptoms reported Female Genitourinary: No symptoms reported Musculoskeletal: No symptoms reported Skin: No symptoms reported Hematologic/Lymphatic: No symptoms reported Neurological/Psychological: See HPI Physical Exam - Vital signs Vitals: Temp Pulse Resp BP Pulse Ox 98.7 F 120 H 16 130/70 H 97 11/12/18 21:17 11/12/18 21:17 11/12/18 21:17 11/12/18 21:17 11/12/18 21:17 - Notes Notes: GENERAL: Alert, cooperative HEAD: Normocephalic, atraumatic. EYES: Pupils equal, round, and reactive to light. Extraocular movements intact. ENT: Oral mucosa moist, tongue midline. Oropharynx unremarkable. Airway patent. Nares patent, no nasal septal hematoma LUNGS: Clear to auscultation bilaterally, no wheezes, rales, or rhonchi. No respiratory distress. HEART: Tachycardia, normal rhythm, no murmur ABDOMEN: Soft, non-tender. Non-distended. GENITOURINARY: Deferred EXTREMITIES: Moves all 4 extremities spontaneously. No edema, normal radial and dorsalis pedis pulses bilaterally. No cyanosis. BACK: no cervical, thoracic, lumbar midline tenderness. No saddle anesthesia, n ormal distal neurovascular exam. NEUROLOGICAL: Alert and oriented to person and place but not events. Normal speech. Patient with shaking tremors of mainly her arms and also slightly of her legs. She also has twitching of the right side of the face intermittently. SKIN: Warm, dry, normal turgor. No rashes or lesions noted. Course - Re-evaluation Re-evalutation: Patient with tremors on my evaluation, however she is awake, cooperative, and neurologically she is unremarkable except that she cannot walk. This is chronic. Patient answers questions appropriately, she is alert and oriented to person and place but not to events. Patient does have random twitching of the right side of the face on my initial evaluation as well. She is also tachycardic. Given Keppra loading dose of 1000 mg, given 0.5 mg of Ativan. After this her twitching stopped and her tachycardia resolved. On reevaluation patient is improved. CBC unremarkable except for some anemia, chemistry shows chronic kidney disease without significant change, magnesium is low at 1.3. Given magnesium. CAT scan of the head was performed because of patient's repeated symptoms and blood thinner use. This was negative for acute findings. Urine shows an infection. Culture placed, given antibiotics. I reevaluated patient. She fell asleep, however she started having twitching on the right side especially in the face even while she was snoring. Suspect she is having focal seizures. I did discuss the case in detail with Dr. Dai. He does recommend discussion with the hospitalist. Unfortunately patient's primary provider Dr. Rashid is not pharmacy consultant so I am unable to asked the type of seizure history she has. I did speak with Dr. Humphrey, he requests that I speak to a neurologist first. I did call [facility], spoke with Dr. Oliva (neurologist on-call). Discussed the case. She states this is most likely focal seizures, she r ecommends that patient's Keppra be increased to 1500 mg twice a day, replace magnesium, treat urinary tract infection, and hopefully her focal seizure episodes reduce. She recommends admission to the hospitalist. She states that she will be available for consult if needed for any questions or any other concerns. Spoke with Dr. Humphrey again, he accepts patient to telemetry full admission. - Vital Signs Vital signs: Temp Pulse Resp BP Pulse Ox 98.3 F 120 H 16 137/66 H 97 11/13/18 02:58 11/12/18 21:17 11/13/18 02:01 11/13/18 02:01 11/13/18 02:01 - Laboratory Result Diagrams: 11/12/18 21:00 11/12/18 21:00 Laboratory results interpreted by me: 11/12/18 11/12/18 11/13/18 21:00 21:00 00:35 RBC 3.52 L Hgb 10.3 L Hct 31.1 L RDW 22.2 H Seg Neutrophils % 33.3 L Lymphocytes % 49.7 H Carbon Dioxide 21 L Creatinine 1.45 H Est GFR ( Amer) 42 L Est GFR (Non-Af Amer) 35 L Glucose 125 H Magnesium 1.3 L Direct Bilirubin 0.5 H Urine Blood SMALL H Urine Nitrite POSITIVE H Ur Leukocyte Esterase LARGE H Discharge - Discharge Clinical Impression: Focal seizures, Hypomagnesemia UTI (urinary tract infection) Qualifiers: Urinary tract infection type: site unspecified Hematuria presence: without hematuria Qualified Code(s): N39.0 - Urinary tract infection, site not specified Condition: Stable Disposition: ADMITTED INPATIENT Admitting Provider: Milagro - for Dr. Rashid Unit Admitted: Telemetry Referrals: MARY RASHID MD [Primary Care Provider] - Follow up as needed
[2018-11-12 21:39] LABS: ABSOLUTE BASOPHILS # (AUTO) 0.2 10^3/uL (0.0-0.2); ABSOLUTE EOSINOPHILS # (AUTO) 0.4 10^3/uL (0.0-0.6); ABSOLUTE LYMPHOCYTES (AUTO) 4.3 10^3/uL (0.5-4.7); ABSOLUTE MONOCYTES (AUTO) 0.9 10^3/uL (0.1-1.4); ABSOLUTE NEUT (AUTO) 2.9 10^3/uL (1.7-8.2); BASOPHILS % (AUTO) 1.8 % (0-2); EOSINOPHILS % (AUTO) 4.5 % (0-6); HEMATOCRIT 31.1 % (36.0-47.0); HEMOGLOBIN 10.3 g/dL (12.0-15.5); LYMPHOCYTES % (AUTO) 49.7 % (13-45); MEAN CORPUSCULAR HEMOGLOBIN 29.2 pg (27.0-33.4); MEAN CORPUSCULAR HGB CONC 33.1 g/dL (32.0-36.0); MEAN CORPUSCULAR VOLUME 88 fl (80-97); MONOCYTES % (AUTO) 10.7 % (3-13); PLATELET COUNT 431 10^3/uL (150-450); RED BLOOD COUNT 3.52 10^6/uL (3.72-5.28); RED CELL DISTRIBUTION WIDTH 22.2 % (11.5-14.0); SEGMENTED NEUTROPHILS % (AUTO) 33.3 % (42-78); TOTAL CELLS COUNTED % (AUTO) 100 %; WHITE BLOOD COUNT 8.6 10^3/uL (4.0-10.5)
[2018-11-12] MEDS ORDERED: NORMAL SALINE 1000 ML 1,000 ML IV ONE (21:43)
[2018-11-12] MEDS ORDERED: LEVETIRACETAM 1000 MG/NACL-ISO 1,000 MG/100 ML RTUPB IV ONE (21:47)
[2018-11-12 21:56] LABS: ALBUMIN 3.8 g/dL (3.5-5.0); ALKALINE PHOSPHATASE 83 U/L (38-126); ANION GAP 12 (5-19); ASPARTATE AMINO TRANSFERASE 30 U/L (14-36); BILIRUBIN,DIRECT 0.5 mg/dL (0.0-0.4); BILIRUBIN,TOTAL 0.7 mg/dL (0.2-1.3); BLOOD UREA NITROGEN 18 mg/dL (7-20); CALCIUM 9.1 mg/dL (8.4-10.2); CARBON DIOXIDE 21 mmol/L (22-30); CHLORIDE 107 mmol/L (98-107); GLUCOSE 125 mg/dL (75-110); POTASSIUM 4.8 mmol/L (3.6-5.0); TOTAL PROTEIN 8.1 g/dL (6.3-8.2)
[2018-11-12 22:08] LABS: ALCOHOL < 10 mg/dL (NONE DETECTED)
--- NOTE | 2018-11-12 22:29 | RADIOLOGY REPORT (SQ) ---
CT HEAD WITHOUT IV CONTRAST EXAM DATE: 11/12/2018 9:33 PM CDT HISTORY: Repeat seizures, on blood thinners. COMPARISON: 08/17/2018 TECHNIQUE: CT scan of the brain without IV contrast. This exam was performed according to our departmental dose-optimization program, which includes automated exposure control, adjustment of the mA and/or kV according to patient size and/or use of iterative reconstruction technique. FINDINGS: There are scattered areas of hypoattenuation within the periventricular white matter, which likely represent chronic microvascular ischemia. No evidence of acute infarction, intracranial hemorrhage, extra-axial fluid collection, or midline shift. No air-fluid levels are seen in the paranasal sinuses to suggest acute sinusitis. No depressed skull fracture. IMPRESSION: 1. No acute intracranial findings. 2. Senescent changes with chronic microvascular ischemia.
[2018-11-12] MEDS ORDERED: LORAZEPAM INJ 2 MG/1 ML VIAL IV ONE (22:40)
[2018-11-12] MEDS: MAGNESIUM SULFATE/D5W 1 GM/100 ML RTUPB IV SCH (23:17)
[2018-11-13] MEDS: MAGNESIUM SULFATE/D5W 1 GM/100 ML RTUPB IV SCH (00:27)
[2018-11-13] MEDS ORDERED: LORAZEPAM INJ 2 MG/1 ML VIAL IV ONE (00:35)
[2018-11-13 01:22] LABS: APPEARANCE,URINE CLOUDY; BILIRUBIN,URINE NEGATIVE (NEGATIVE); COLOR,URINE YELLOW; GLUCOSE, URINE NEGATIVE (NEGATIVE); KETONES,URINE NEGATIVE (NEGATIVE); LEUKOCYTE ESTERASE,URINE LARGE (NEGATIVE); NITRITE,URINE POSITIVE (NEGATIVE); PROTEIN,URINE NEGATIVE (NEGATIVE); URINE SPECIFIC GRAVITY 1.014; UROBILINOGEN,URINE NEGATIVE mg/dL (<2.0)
[2018-11-13] MEDS ORDERED: CEFTRIAXONE 1 GM/D5W RTU 1 GM/50 ML RTUPB IV ONE (01:55)
[2018-11-13] MEDS ORDERED: CEFTRIAXONE INJ 1000 MG VIAL ONE (02:15)
[2018-11-13] MEDS ORDERED: LEVETIRACETAM 500 MG TABLET PO SCH (10:00)
[2018-11-13] MEDS ORDERED: CEFTRIAXONE 1 GM/D5W RTU 1 GM/50 ML RTUPB IV SCH (14:00)
--- NOTE | 2018-11-13 14:38 | PDOC H&P ---
History of Present Illness Admission Date/PCP: 11/13/18 05:13 MARY RASHID MD Patient complains of: Seizure activity History of Present Illness: IVY CLAIRE is a 78 year old female patient of Dr. Rashid who presented to the ED via EMS for possible seizure activities. Patient's family reported onset of seizure that progressed from right sided to left sided and subsequently generalized. Family reported that patient had several episodes in succession which was bothersome and comparatively first time since her diagnosis with seizure. She remain conscious enough to follow commands during the seizure event. She was diagnosed with seizure early this year during her hospitalization in October, at this hospital. She has been compliant with her medication as per her daughter at bedside. She follow up with Dr Colon, neurologist, for her seizure management. Family denied any alcohol or illicit drug usage. She is virtually bedridden due to her morbidities. She denied any associated preceding headache, lightheadedness, or dizziness. No nausea or vomiting. No fever or chills. EMS and initial ED evaluation were unrevealing regarding causative f actor.Although she was found less responsive upon arrival of the EMS on site upon arrival in the ED she was fully awake, oriented to place and time but not to event, and appropriate in simple responses. Her head CT scan was devoid of any acute pathology but revealed chronic microvascular ischemic changes. Her other morbidities include Hypertension, Hyperlipidemia, Hypothyroidism, Chronic kidney disease, Pulmonary Embolism, DVT, old CVA, Osteoarthritis and Depression. There was consultation with Dr. Oliva, electrical and instrumentation manager neurologist, at [facility] for input into her management while in the ED. It was recommended that patient care can be provided at this facility with adjustment in her Keppra dosage and attention to her electrolytes needs. she was advised hospitalization for further evaluation and management. Past Medical History Cardiac Medical History: Reports: Hyperlipidema, Hypertension, Pulmonary Embolism - 2 blood clots in her lungs a few years ago Denies: Atrial Fibrillation, Congestive Heart Failure, Myocardial Infarction Pulmonary Medical History: Reports: Bronchitis Denies: Asthma, Chronic Obstructive Pulmonary Disease (COPD), Pneumonia, Tuberculosis Neurological Medical History: Denies: Seizures Endocrine Medical History: Reports: Hypothyroidism Renal/ Medical History: Denies: End Stage Renal Disease Malignancy Medical History: Denies: Leukemia, Lung Cancer GI Medical History: Denies: Hepatitis, Hiatal Hernia Musculoskeltal Medical History: Reports: Arthritis, Gout Denies: Fibromyalgia Psychiatric Medical History: Reports: Depression Hematology: Reports: Anemia Denies: Hemophilia, Sickle Cell Disease Infectious Medical History: Denies: HIV Past Surgical History Past Surgical History: Reports: Orthopedic Surgery - R knee replacement Denies: Amputation, Appendectomy, Section, Cholecystectomy, Coronary Artery Bypass Graft, Gastric Bypass Surgery, Herniorrhaphy, Hysterectomy, Mastectomy, Pacemaker, Tonsillectomy, Tubal Ligation Social History Lives with: Family Smoking Status: Never Smoker Last Time Smoked: 30 years ago Frequency of Alcohol Use: None Hx Recreational Drug Use: No Drugs: None Hx Prescription Drug Abuse: No - Advance Directive Resuscitation Status: Full Code Family History Family History: Reviewed & Not Pertinent Parental Family History Reviewed: Yes Children Family History Reviewed: Yes Sibling(s) Family History Reviewed.: Yes Medication/Allergy Home Medications: Allopurinol [Zyloprim 100 mg Tablet] 100 mg PO QAM 08/10/18 Ferrous Sulfate [Feosol 325 mg Tablet] 325 mg PO QHS 08/10/18 Levothyroxine Sodium [Synthroid 0.075 mg Tablet] 0.075 mg PO Q6AM 08/10/18 Amlodipine Besylate [Norvasc 10 mg Tablet] 10 mg PO DAILY 11/13/18 Apixaban [Eliquis 5 mg Tablet] 5 mg PO BID 11/13/18 Aspirin [Ecotrin 81 mg EC Tablet] 81 mg PO DAILY 11/13/18 Atorvastatin Calcium [Lipitor 40 mg Tablet] 40 mg PO QHS 11/13/18 Cholecalciferol (Vitamin D3) [Vitamin D3 1000 Unit Tablet] 1,000 unit PO DAILY 0 11/13/18 Cinacalcet HCl [Sensipar 30 mg Tablet] 30 mg PO BID 11/13/18 Diazepam [Diastat Acudial] 20 mg TN PRN PRN 11/13/18 Gabapentin [Neurontin 100 mg Capsule] 200 mg PO QHS 11/13/18 Lacosamide [Vimpat 50 mg Tablet] 100 mg PO Q12 11/13/18 Levetiracetam 1,000 mg PO Q12 11/13/18 Lubiprostone [Amitiza 24 Mcg Capsule] 24 mcg PO Q12 11/13/18 Allergies/Adverse Reactions: steriods Allergy (Uncoded 08/10/18 12:33) steroids Adverse Reaction (Intermediate, Uncoded 08/10/18 12:33) Review of Systems Constitutional: ABSENT: chills, fever(s), headache(s), weight gain, weight loss Eyes: ABSENT: visual disturbances Ears: ABSENT: hearing changes Nose, Mouth, and Throat: ABSENT: headache(s), vertigo Cardiovascular: ABSENT: chest pain, dyspnea on exertion, edema, orthropnea, palpitations Respiratory: ABSENT: cough, hemoptysis Gastrointestinal: ABSENT: abdominal pain, constipation, diarrhea, hematemesis, hematochezia, nausea, vomiting Genitourinary: ABSENT: dysuria, hematuria Musculoskeletal: ABSENT: joint swelling Neurological: PRESENT: confusion - with event, convulsions. ABSENT: as per HPI, abnormal gait, abnormal movements, abnormal speech, dizziness, focal weakness, frequent falls, lack of coordination, memory loss, numbness, paresthesias, restless legs, syncope, tingling, tremor(s), vertigo, weakness, other Psychiatric: ABSENT: anxiety, depression, homidical ideation, suicidal ideation Endocrine: ABSENT: cold intolerance, heat intolerance, polydipsia, polyuria Hematologic/Lymphatic: ABSENT: easy bleeding, easy bruising, lymphadenopathy Allergic/Immunologic: ABSENT: seasonal rhinorrhea Physical Exam Vital Signs: Temp Pulse Resp BP Pulse Ox 97.6 F 90 18 113/72 100 11/13/18 11:10 11/13/18 11:10 11/13/18 11:10 11/13/18 11:10 11/13/18 11:10 Intake & Output 11/12/18 11/13/18 11/14/18 06:59 06:59 06:59 Intake Total 1300 480 Balance 1300 480 Weight 97.9 kg General appearance: PRESENT: no acute distress, obese Head exam: PRESENT: atraumatic, normocephalic Eye exam: PRESENT: conjunctiva pink, EOMI, PERRLA. ABSENT: scleral icterus Ear exam: PRESENT: normal external ear exam Mouth exam: PRESENT: moist Neck exam: PRESENT: full ROM. ABSENT: carotid bruit, JVD, lymphadenopathy, thyromegaly Respiratory exam: PRESENT: clear to auscultation heidi, decreased breath sounds - at lung bases Cardiovascular exam: PRESENT: RRR. ABSENT: diastolic murmur, rubs, systolic murmur Vascular exam: ABSENT: pallor GI/Abdominal exam: PRESENT: normal bowel sounds, soft. ABSENT: distended, guarding, mass, organolmegaly, rebound, tenderness Rectal exam: PRESENT: deferred Extremities exam: ABSENT: pedal edema Musculoskeletal exam: PRESENT: deformity - related to multiple joints involvement with arthritis Neurological exam: PRESENT: alert, awake - and appropriate in simple responses, oriented to person, oriented to place, oriented to time, oriented to situation - at the time of my evaluation Psychiatric exam: PRESENT: appropriate affect, normal mood. ABSENT: homicidal ideation, suicidal ideation Skin exam: PRESENT: dry, warm Results Laboratory Results: 11/12/18 21:00 11/12/18 21:00 11/12/18 11/12/18 11/13/18 21:00 21:00 00:35 WBC 8.6 RBC 3.52 L Hgb 10.3 L Hct 31.1 L MCV 88 MCH 29.2 MCHC 33.1 RDW 22.2 H Plt Count 431 Seg Neutrophils % 33.3 L Lymphocytes % 49.7 H Monocytes % 10.7 Eosinophils % 4.5 Basophils % 1.8 Absolute Neutrophils 2.9 Absolute Lymphocytes 4.3 Absolute Monocytes 0.9 Absolute Eosinophils 0.4 Absolute Basophils 0.2 Sodium 140.1 Potassium 4.8 Chloride 107 Carbon Dioxide 21 L Anion Gap 12 BUN 18 Creatinine 1.45 H Est GFR ( Amer) 42 L Est GFR (Non-Af Amer) 35 L Glucose 125 H Calcium 9.1 Magnesium 1.3 L Total Bilirubin 0.7 AST 30 Alkaline Phosphatase 83 Total Protein 8.1 Albumin 3.8 Urine Color YELLOW Urine Appearance CLOUDY Urine pH 5.0 Ur Specific Leopold 1.014 Urine Protein NEGATIVE Urine Glucose (UA) NEGATIVE Urine Ketones NEGATIVE Urine Blood SMALL H Urine Nitrite POSITIVE H Ur Leukocyte Esterase LARGE H Urine WBC (Auto) >182 Urine RBC (Auto) 23 Impressions: Head CT 11/12/18 21:33 IMPRESSION: 1. No acute intracranial findings. 2. Senescent changes with chronic microvascular ischemia. Assessment & Plan - Diagnosis (1) Focal seizures Plan: See admitting attending physician orders for details. (2) Hypomagnesemia Is this a current diagnosis for this admission?: Yes Plan: See admitting attending physician orders for details. (3) Urinary tract infection Qualifiers: Urinary tract infection type: site unspecified Hematuria presence: without hematuria Qualified Code(s): N39.0 - Urinary tract infection, site not specified Is this a current diagnosis for this admission?: Yes Plan: See admitting attending physician orders for details. (4) Hypertension Qualifiers: Hypertension type: essential hypertension Qualified Code(s): I10 - Essential (primary) hypertension Is this a current diagnosis for this admission?: Yes Plan: See admitting attending physician orders for details. (5) Chronic renal failure, stage 3 (moderate) Is this a current diagnosis for this admission?: Yes Plan: See admitting attending physician orders for details. (6) Hyperlipidemia Qualifiers: Hyperlipidemia type: unspecified Qualified Code(s): E78.5 - Hyperlipidemia, unspecified Is this a current diagnosis for this admission?: Yes Plan: See admitting attending physician orders for details. - Time Time Spent: 50 to 70 Minutes Medications reviewed and adjusted accordingly: Yes Anticipated discharge: Home with Homehealth Within: Other - Inpatient Certification Based on my medical assessment, after consideration of the patient's co morbidities, presenting symptoms, or acuity I expect that the services needed warrant INPATIENT care.: Yes I certify that my determination is in accordance with my understanding of Medicare's requirements for reasonable and necessary INPATIENT services [42 CFR 412.3e].: Yes Medical Necessity: Significant Comorbidiites Make Outpatient Treatment Too Risky, Need Close Monitoring Due to Risk of Patient Decompensation, Need For Continuous Telemetry Monitoring, Need for IV Antibiotics, Risk of Complication if Not Cared For in Hospital, Risk of Diagnosis Which Will Require Inpatient Eval/Care/Monitoring Post Hospital Care: D/C [employer] Documentation - Plan Summary Plan Summary: See admitting attending physician orders for details.
[2018-11-13 14:56] LABS: ANION GAP 9 (5-19); BLOOD UREA NITROGEN 17 mg/dL (7-20); CALCIUM 8.1 mg/dL (8.4-10.2); CARBON DIOXIDE 22 mmol/L (22-30); CHLORIDE 107 mmol/L (98-107); GLUCOSE 109 mg/dL (75-110); POTASSIUM 4.4 mmol/L (3.6-5.0)
[2018-11-13] MEDS: NORMAL SALINE 1000 ML 1,000 ML IV PRN (15:01)
[2018-11-13] MEDS: CEFTRIAXONE SODIUM 1,000 MG in DEXTROSE 5%-WATER 50 ML IV SCH (15:02)
[2018-11-13] MEDS ORDERED: LEVETIRACETAM 500 MG TABLET PO ONE (15:30)
[2018-11-13] MEDS: CINACALCET HCL 30 MG TABLET PO SCH (17:21)
[2018-11-13] MEDS: APIXABAN 5 MG TABLET PO SCH (17:21)
[2018-11-13] MEDS ORDERED: LACOSAMIDE 50 MG TABLET PO SCH (22:00)
[2018-11-13] MEDS: FERROUS SULFATE 325 MG TABLET PO SCH (22:34)
[2018-11-13] MEDS: GABAPENTIN 100 MG CAPSULE PO SCH (22:34)
[2018-11-13] MEDS: ATORVASTATIN CALCIUM 40 MG TABLET PO SCH (22:34)
[2018-11-13] MEDS: LUBIPROSTONE 24 MCG CAPSULE PO SCH (22:35)
[2018-11-13] MEDS: LACOSAMIDE 100 MG TABLET PO SCH (22:35)
[2018-11-13] MEDS: LEVETIRACETAM 500 MG TABLET PO SCH (22:35)
[2018-11-14] MEDS: ACETAMINOPHEN 325 MG TABLET PO PRN (03:24)
[2018-11-14] MEDS: LEVOTHYROXINE SODIUM 0.075 MG TABLET PO SCH (05:30)
[2018-11-14] MEDS: NORMAL SALINE 1000 ML 1,000 ML IV PRN (05:30)
[2018-11-14] MEDS: ASPIRIN 81 MG TABLET, ENT COATED PO SCH (09:50)
[2018-11-14] MEDS: LUBIPROSTONE 24 MCG CAPSULE PO SCH (09:50)
[2018-11-14] MEDS: CHOLECALCIFEROL (D3) 1,000 UNIT (25 MCG) TABLET PO SCH (09:50)
[2018-11-14] MEDS: LACOSAMIDE 100 MG TABLET PO SCH ×2 (09:50→21:51)
[2018-11-14] MEDS: LEVETIRACETAM 500 MG TABLET PO SCH ×2 (09:50→21:52)
[2018-11-14] MEDS: ALLOPURINOL 100 MG TABLET PO SCH (09:50)
[2018-11-14] MEDS: APIXABAN 5 MG TABLET PO SCH ×2 (09:50→17:57)
[2018-11-14] MEDS: AMLODIPINE BESYLATE 10 MG TABLET PO SCH (09:51)
[2018-11-14] MEDS: CINACALCET HCL 30 MG TABLET PO SCH ×2 (09:51→17:57)
[2018-11-14] MEDS ORDERED: LEVETIRACETAM 500 MG TABLET PO ONE (14:15)
[2018-11-14] MEDS: CEFTRIAXONE SODIUM 1,000 MG in DEXTROSE 5%-WATER 50 ML IV SCH (17:57)
--- NOTE | 2018-11-14 21:39 | PDOC PROGRESS REPORT ---
Subjective Progress Note for:: 11/14/18 Subjective:: Patient expressed discomfort due to Amitiza induced diarrhea. She denied taking Amitiza at home. No abdominal pain, nausea or vomiting. No fever or chills. Reason For Visit: SEIZURE DISORDER, HYPOMAGNESEMIA,UTI Physical Exam Vital Signs: Temp Pulse Resp BP Pulse Ox 98.9 F 100 18 132/69 H 97 11/14/18 15:21 11/14/18 15:21 11/14/18 15:21 11/14/18 15:21 11/14/18 15:21 Intake & Output 11/13/18 11/14/18 11/15/18 06:59 06:59 06:59 Intake Total 1300 1770 720 Balance 1300 1770 720 Weight 97.9 kg 101 kg General appearance: PRESENT: no acute distress, morbidly obese Head exam: PRESENT: atraumatic, normocephalic Eye exam: PRESENT: conjunctiva pink. ABSENT: scleral icterus Ear exam: PRESENT: normal external ear exam Mouth exam: PRESENT: moist Respiratory exam: PRESENT: clear to auscultation heidi, decreased breath sounds - at lung bases Cardiovascular exam: PRESENT: RRR. ABSENT: diastolic murmur, rubs, systolic murmur Vascular exam: ABSENT: pallor GI/Abdominal exam: PRESENT: normal bowel sounds, soft. ABSENT: distended, guarding, mass, organolmegaly, rebound, tenderness Extremities exam: ABSENT: pedal edema Musculoskeletal exam: PRESENT: deformity - related to multiple joints involvement with arthritis Neurological exam: PRESENT: alert, awake - and appropriate in simple responses. Psychiatric exam: PRESENT: appropriate affect, normal mood. ABSENT: homicidal ideation, suicidal ideation Skin exam: PRESENT: dry, warm Results Laboratory Results: 11/12/18 21:00 11/13/18 14:30 Impressions: Head CT 11/12/18 21:33 IMPRESSION: 1. No acute intracranial findings. 2. Senescent changes with chronic microvascular ischemia. Assessment & Plan - Diagnosis (2) Hypomagnesemia Is this a current diagnosis for this admission?: Yes (3) Urinary tract infection Qualifiers: Urinary tract infection type: site unspecified Hematuria presence: without hematuria Qualified Code(s): N39.0 - Urinary tract infection, site not specified Is this a current diagnosis for this admission?: Yes (4) Hypertension Qualifiers: Hypertension type: essential hypertension Qualified Code(s): I10 - Essential (primary) hypertension Is this a current diagnosis for this admission?: Yes (5) Chronic renal failure, stage 3 (moderate) Is this a current diagnosis for this admission?: Yes (6) Hyperlipidemia Qualifiers: Hyperlipidemia type: unspecified Qualified Code(s): E78.5 - Hyperlipidemia, unspecified Is this a current diagnosis for this admission?: Yes (8) Gram-negative bacterial infection Is this a current diagnosis for this admission?: Yes Plan: Continue IV Rocephin coverage. Follow up on urine and blood culture findings. - Time Time Spent with patient: 25-34 minutes Medications reviewed and adjusted accordingly: Yes Anticipated discharge: Home with Homehealth Within: Other - Inpatient Certification Based on my medical assessment, after consideration of the patient's comorbidities, presenting symptoms, or acuity I expect that the services needed warrant INPATIENT care.: Yes I certify that my determination is in accordance with my understanding of Medicare's requirements for reasonable and necessary INPATIENT services [42 CFR 412.3e].: Yes Medical Necessity: Significant Comorbidiites Make Outpatient Treatment Too Risky, Need Close Monitoring Due to Risk of Patient Decompensation, Need For IV Fluids, Need For Continuous Telemetry Monitoring, Need for IV Antibiotics, Risk of Complication if Not Cared For in Hospital, Risk of Diagnosis Which Will Require Inpatient Eval/Care/Monitoring Post Hospital Care: 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 Follow up on blood and urine culture findings.
[2018-11-14] MEDS: ATORVASTATIN CALCIUM 40 MG TABLET PO SCH (21:52)
[2018-11-14] MEDS: GABAPENTIN 100 MG CAPSULE PO SCH (21:52)
[2018-11-14] MEDS: FERROUS SULFATE 325 MG TABLET PO SCH (21:52)
[2018-11-14] MEDS: MAGNESIUM OXIDE 400 MG TABLET PO SCH (21:53)
--- NOTE | 2018-11-14 22:25 | Operative Report ---
Nonrecallable Operative Report DATE OF SURGERY: 11/14/18 PREOPERATIVE DIAGNOSIS: Hypomagnesemia chronic renal failure POSTOPERATIVE DIAGNOSIS: Hypomagnesemia chronic renal failure OPERATION: Left internal jugular central line placement SURGEON: CASPER RICH ANESTHESIA: Local TISSUE REMOVED OR ALTERED: None COMPLICATIONS: None ESTIMATED BLOOD LOSS: 5 cc INTRAOPERATIVE FINDINGS: See note PROCEDURE: Procedure appropriate site verification and timeout the patient was placed in her hospital bed in Trendelenburg position. The left neck was prepped and draped in usual sterile manner. Using 1% lidocaine plain the area over the left internal jugular was anesthetized. Using a finder needle of 22-gauge right cannulated the internal jugular vein. Then with a 16-gauge Intracath I was able to access the left internal jugular vein. The needle was removed and a J-wire was placed through the catheter into the internal jugular vein. The wire passed easily. The catheter was removed and a dilator supplied with the kit was used to dilate the tract. The 16 Bangladeshi triple-lumen catheter was then placed over the wire into the left internal jugular vein and then into the superior vena cava. The triple-lumen catheter was then fixed in place with 2-0 silk suture sterile dressing was applied and chest x-ray is pending. Patient tolerated the procedure well.
--- NOTE | 2018-11-14 23:36 | RADIOLOGY REPORT (SQ) ---
EXAM DESCRIPTION: X-ray single view chest. CLINICAL HISTORY: 78 years Female, central line placement confirmation COMPARISON: 08/18/2018 TECHNIQUE: Single portable x-ray view of the chest performed on 11/14/2018 at 10:46 PM FINDINGS: The lungs are well expanded and are clear. There is no evidence of a pneumothorax. There is minimal scarring in the left lateral costophrenic sulcus. The cardiac silhouette is normal in size and configuration. The mediastinal contours are normal. No acute osseous abnormality is identified. There are degenerative changes of the shoulders and spine. No focal soft tissue abnormalities are seen. Lines and tubes: The tip of the left IJ central venous catheter terminates in the region of the superior vena cava. IMPRESSION: No evidence of acute intrathoracic disease. The tip of the left IJ central venous catheter terminates in the region of the superior vena cava.
[2018-11-15 04:43] LABS: ALBUMIN 2.5 g/dL (3.5-5.0); ALKALINE PHOSPHATASE 57 U/L (38-126); ANION GAP 6 (5-19); ASPARTATE AMINO TRANSFERASE 15 U/L (14-36); BILIRUBIN,DIRECT 0.3 mg/dL (0.0-0.4); BILIRUBIN,TOTAL 0.3 mg/dL (0.2-1.3); BLOOD UREA NITROGEN 18 mg/dL (7-20); CALCIUM 7.7 mg/dL (8.4-10.2); CARBON DIOXIDE 22 mmol/L (22-30); CHLORIDE 110 mmol/L (98-107); GLUCOSE 83 mg/dL (75-110); POTASSIUM 4.7 mmol/L (3.6-5.0); TOTAL PROTEIN 5.2 g/dL (6.3-8.2)
[2018-11-15] MEDS: LEVOTHYROXINE SODIUM 0.075 MG TABLET PO SCH (05:20)
[2018-11-15] MEDS: NORMAL SALINE 1000 ML 1,000 ML IV PRN (05:22)
[2018-11-15 05:45] LABS: ABSOLUTE EOSINOPHILS # (AUTO) 0.3 10^3/uL (0.0-0.6); ABSOLUTE LYMPHOCYTES (AUTO) 1.6 10^3/uL (0.5-4.7); ABSOLUTE MONOCYTES (AUTO) 0.8 10^3/uL (0.1-1.4); ABSOLUTE NEUT (AUTO) 3.4 10^3/uL (1.7-8.2); BASOPHILS % (AUTO) 0.8 % (0-2); EOSINOPHILS % (AUTO) 5.2 % (0-6); HEMATOCRIT 23.9 % (36.0-47.0); LYMPHOCYTES % (AUTO) 26.2 % (13-45); MEAN CORPUSCULAR HEMOGLOBIN 29.6 pg (27.0-33.4); MEAN CORPUSCULAR HGB CONC 33.6 g/dL (32.0-36.0); MEAN CORPUSCULAR VOLUME 88 fl (80-97); MONOCYTES % (AUTO) 12.4 % (3-13); PLATELET COUNT 329 10^3/uL (150-450); RED BLOOD COUNT 2.72 10^6/uL (3.72-5.28); RED CELL DISTRIBUTION WIDTH 21.3 % (11.5-14.0); SEGMENTED NEUTROPHILS % (AUTO) 55.4 % (42-78); TOTAL CELLS COUNTED % (AUTO) 100 %; WHITE BLOOD COUNT 6.1 10^3/uL (4.0-10.5)
[2018-11-15] MEDS ORDERED: MAGNESIUM SULFATE/D5W 1 GM/100 ML RTUPB IV ONE (06:30)
[2018-11-15] MEDS: MAGNESIUM SULFATE 1 GM/D5W 100 ML IV SCH ×2 (06:36→08:13)
[2018-11-15] MEDS: ALLOPURINOL 100 MG TABLET PO SCH (08:13)
[2018-11-15] MEDS: ASPIRIN 81 MG TABLET, ENT COATED PO SCH (09:51)
[2018-11-15] MEDS: LEVETIRACETAM 500 MG TABLET PO SCH ×2 (09:51→22:48)
[2018-11-15] MEDS: AMLODIPINE BESYLATE 10 MG TABLET PO SCH (09:51)
[2018-11-15] MEDS: LACOSAMIDE 100 MG TABLET PO SCH ×2 (09:51→22:49)
[2018-11-15] MEDS: CINACALCET HCL 30 MG TABLET PO SCH ×2 (09:51→17:14)
[2018-11-15] MEDS: CHOLECALCIFEROL (D3) 1,000 UNIT (25 MCG) TABLET PO SCH (09:51)
[2018-11-15] MEDS: MAGNESIUM OXIDE 400 MG TABLET PO SCH (09:52)
[2018-11-15] MEDS: APIXABAN 5 MG TABLET PO SCH ×2 (09:52→17:14)
[2018-11-15] MEDS: CEFTRIAXONE SODIUM 1,000 MG in DEXTROSE 5%-WATER 50 ML IV SCH (14:02)
[2018-11-15] MEDS ORDERED: DIPHENOXYLATE HCL/ATROP SULF 2.5-0.025 MG TABLET PO ONE (19:41)
--- NOTE | 2018-11-15 19:41 | PDOC PROGRESS REPORT ---
Subjective Progress Note for:: 11/15/18 Subjective:: Patient continue to experience diarrhea all day. No abdominal pain, nausea or vomiting. No fever or chills. No chest pain or difficulty with breathing. Reason For Visit: SEIZURE DISORDER, HYPOMAGNESEMIA,UTI Physical Exam Vital Signs: Temp Pulse Resp BP Pulse Ox 98.2 F 114 H 16 122/64 95 11/15/18 16:33 11/15/18 16:33 11/15/18 16:33 11/15/18 16:33 11/15/18 16:33 Intake & Output 11/14/18 11/15/18 11/16/18 06:59 06:59 06:59 Intake Total 1770 1770 310 Balance 1770 1770 310 Weight 101 kg 100 kg Physical Exam: General appearance: PRESENT: no acute distress, morbidly obese Head exam: PRESENT: atraumatic, normocephalic Eye exam: PRESENT: conjunctiva pink. ABSENT: pallor, scleral icterus Ear exam: PRESENT: normal external ear exam Mouth exam: PRESENT: moist Respiratory exam: PRESENT: clear to auscultation heidi, decreased breath sounds - at lung bases Cardiovascular exam: PRESENT: RRR. ABSENT: diastolic murmur, rubs, systolic murmur GI/Abdominal exam: PRESENT: normal bowel sounds, soft. ABSENT: distended, guarding, mass, organomegaly, rebound, tenderness Extremities exam: ABSENT: pedal edema Musculoskeletal exam: PRESENT: deformity - related to multiple joints involvement with arthritis Neurological exam: PRESENT: alert, awake - and appropriate in simple responses. Psychiatric exam: PRESENT: appropriate affect, normal mood. ABSENT: homicidal ideation, suicidal ideation Skin exam: PRESENT: dry, warm Results Laboratory Results: 11/15/18 05:20 11/15/18 04:00 11/15/18 11/15/18 11/15/18 04:00 04:00 05:20 WBC Cancelled 6.1 RBC Cancelled 2.72 L Hgb Cancelled 8.0 L D Hct Cancelled 23.9 L MCV Cancelled 88 MCH Cancelled 29.6 MCHC Cancelled 33.6 RDW Cancelled 21.3 H Plt Count Cancelled 329 Seg Neutrophils % Cancelled 55.4 Lymphocytes % Cancelled 26.2 Monocytes % Cancelled 12.4 Eosinophils % Cancelled 5.2 Basophils % Cancelled 0.8 Absolute Neutrophils Cancelled 3.4 Absolute Lymphocytes Cancelled 1.6 Absolute Monocytes Cancelled 0.8 Absolute Eosinophils Cancelled 0.3 Absolute Basophils Cancelled 0.0 Sodium 137.6 Potassium 4.7 Chloride 110 H Carbon Dioxide 22 Anion Gap 6 BUN 18 Creatinine 1.17 Est GFR ( Amer) 54 L Est GFR (Non-Af Amer) 45 L Glucose 83 Calcium 7.7 L Magnesium 1.2 L* Total Bilirubin 0.3 AST 15 Alkaline Phosphatase 57 Total Protein 5.2 L Albumin 2.5 L Impressions: Head CT 11/12/18 21:33 IMPRESSION: 1. No acute intracranial findings. 2. Senescent changes with chronic microvascular ischemia. Chest X-Ray 11/14/18 00:00 IMPRESSION: No evidence of acute intrathoracic disease. The tip of the left IJ central venous catheter terminates in the region of the superior vena cava. Assessment & Plan - Diagnosis (2) Hypomagnesemia Is this a current diagnosis for this admission?: Yes (3) Urinary tract infection Qualifiers: Urinary tract infection type: site unspecified Hematuria presence: without hematuria Qualified Code(s): N39.0 - Urinary tract infection, site not sp ecified Is this a current diagnosis for this admission?: Yes (4) Hypertension Qualifiers: Hypertension type: essential hypertension Qualified Code(s): I10 - Essential (primary) hypertension Is this a current diagnosis for this admission?: Yes (5) Chronic renal failure, stage 3 (moderate) Is this a current diagnosis for this admission?: Yes (6) Hyperlipidemia Qualifiers: Hyperlipidemia type: unspecified Qualified Code(s): E78.5 - Hyperlipidemia, unspecified Is this a current diagnosis for this admission?: Yes (8) Gram-negative bacterial infection Is this a current diagnosis for this admission?: Yes (9) Drug-induced diarrhea Is this a current diagnosis for this admission?: Yes Plan: Obtain stool C.difficile toxin titer in view of her antibiotic therapy. Start on Lomotil 2 tablet po x 1 dose. Continue all other current medication management. - Time Time Spent with patient: 25-34 minutes Medications reviewed and adjusted accordingly: Yes Anticipated discharge: Home with Homehealth Within: Other - Inpatient Certification Based on my medical assessment, after consideration of the patient's comorbidities, presenting symptoms, or acuity I expect that the services needed warrant INPATIENT care.: Yes I certify that my determination is in accordance with my understanding of Medicare's requirements for reasonable and necessary INPATIENT services [42 CFR 412.3e].: Yes Medical Necessity: Significant Comorbidiites Make Outpatient Treatment Too Risky, Need Close Monitoring Due to Risk of Patient Decompensation, Need For IV Fluids, Need For Continuous Telemetry Monitoring, Need for IV Antibiotics, Risk of Complication if Not Cared For in Hospital, Risk of Diagnosis Which Will Require Inpatient Eval/Care/Monitoring Post Hospital Care: D/C [employer] Documentation - Plan Summary Plan Summary: Obtain stool C.difficile toxin titer. Administer Lomotil 2 tablets p.o x 1 dose. Continue all other current medication management. Obtain cbc with diff, BMP, and Mag in am.
[2018-11-15] MEDS: GABAPENTIN 100 MG CAPSULE PO SCH (22:48)
[2018-11-15] MEDS: ATORVASTATIN CALCIUM 40 MG TABLET PO SCH (22:48)
[2018-11-15] MEDS: FERROUS SULFATE 325 MG TABLET PO SCH (22:49)
[2018-11-16 03:57] LABS: ABSOLUTE EOSINOPHILS # (AUTO) 0.2 10^3/uL (0.0-0.6); ABSOLUTE LYMPHOCYTES (AUTO) 1.6 10^3/uL (0.5-4.7); ABSOLUTE MONOCYTES (AUTO) 0.8 10^3/uL (0.1-1.4); ABSOLUTE NEUT (AUTO) 7.5 10^3/uL (1.7-8.2); BASOPHILS % (AUTO) 0.5 % (0-2); EOSINOPHILS % (AUTO) 1.9 % (0-6); HEMATOCRIT 27.6 % (36.0-47.0); LYMPHOCYTES % (AUTO) 15.5 % (13-45); MEAN CORPUSCULAR HEMOGLOBIN 29.1 pg (27.0-33.4); MEAN CORPUSCULAR HGB CONC 32.8 g/dL (32.0-36.0); MEAN CORPUSCULAR VOLUME 89 fl (80-97); MONOCYTES % (AUTO) 8.3 % (3-13); PLATELET COUNT 359 10^3/uL (150-450); RED BLOOD COUNT 3.11 10^6/uL (3.72-5.28); RED CELL DISTRIBUTION WIDTH 20.8 % (11.5-14.0); SEGMENTED NEUTROPHILS % (AUTO) 73.8 % (42-78); TOTAL CELLS COUNTED % (AUTO) 100 %; WHITE BLOOD COUNT 10.2 10^3/uL (4.0-10.5)
[2018-11-16 04:15] LABS: ANION GAP 7 (5-19); BLOOD UREA NITROGEN 14 mg/dL (7-20); CARBON DIOXIDE 22 mmol/L (22-30); CHLORIDE 107 mmol/L (98-107); GLUCOSE 86 mg/dL (75-110); POTASSIUM 4.3 mmol/L (3.6-5.0)
[2018-11-16] MEDS: NORMAL SALINE 1000 ML 1,000 ML IV PRN ×2 (04:39→19:48)
[2018-11-16] MEDS: LEVOTHYROXINE SODIUM 0.075 MG TABLET PO SCH (05:07)
[2018-11-16] MEDS: ALLOPURINOL 100 MG TABLET PO SCH (08:46)
[2018-11-16] MEDS: ACETAMINOPHEN 325 MG TABLET PO PRN ×2 (08:46→19:47)
[2018-11-16] MEDS: LACOSAMIDE 100 MG TABLET PO SCH ×2 (10:28→21:28)
[2018-11-16] MEDS: MAGNESIUM OXIDE 400 MG TABLET PO SCH (10:28)
[2018-11-16] MEDS: LEVETIRACETAM 500 MG TABLET PO SCH ×2 (10:29→21:27)
[2018-11-16] MEDS: CINACALCET HCL 30 MG TABLET PO SCH ×2 (10:29→17:48)
[2018-11-16] MEDS: CHOLECALCIFEROL (D3) 1,000 UNIT (25 MCG) TABLET PO SCH (10:30)
[2018-11-16] MEDS: ASPIRIN 81 MG TABLET, ENT COATED PO SCH (10:30)
[2018-11-16] MEDS: AMLODIPINE BESYLATE 10 MG TABLET PO SCH (10:30)
[2018-11-16] MEDS: APIXABAN 5 MG TABLET PO SCH ×2 (10:30→17:48)
[2018-11-16] MEDS: VANCOMYCIN HCL INJ 500 MG VIAL PO SCH ×3 (10:36→17:51)
[2018-11-16] MEDS: CEFTRIAXONE SODIUM 1,000 MG in DEXTROSE 5%-WATER 50 ML IV SCH (15:20)
--- NOTE | 2018-11-16 19:47 | PDOC PROGRESS REPORT ---
Subjective Progress Note for:: 11/16/18 Subjective:: Patient continue to experience diarrhea but less frequent so far today. Her stool C.difficle toxin titer is positive. No abdominal pain, nausea or vomiting. No fever or chills. No chest pain or difficulty with breathing. No seizure activities. Reason For Visit: SEIZURE DISORDER, HYPOMAGNESEMIA,UTI Physical Exam Vital Signs: Temp Pulse Resp BP Pulse Ox 98.4 F 99 18 127/61 H 96 11/16/18 17:05 11/16/18 17:05 11/16/18 17:05 11/16/18 17:05 11/16/18 17:05 Intake & Output 11/15/18 11/16/18 11/17/18 06:59 06:59 06:59 Intake Total 1770 1360 Balance 1770 1360 Weight 100 kg 100.1 kg Physical Exam: General appearance: PRESENT: no acute distress, morbidly obese Head exam: PRESENT: atraumatic, normocephalic Eye exam: PRESENT: conjunctiva pink. ABSENT: pallor, scleral icterus Ear exam: PRESENT: normal external ear exam Mouth exam: PRESENT: moist Respiratory exam: PRESENT: clear to auscultation heidi, decreased breath sounds - at lung bases Cardiovascular exam: PRESENT: RRR. ABSENT: diastolic murmur, rubs, systolic murmur GI/Abdominal exam: PRESENT: normal bowel sounds, soft. ABSENT: distended, guarding, mass, organomegaly, rebound, tenderness Extremities exam: ABSENT: pedal edema Musculoskeletal exam: PRESENT: deformity - related to multiple joints involvement with arthritis Neurological exam: PRESENT: alert, awake - and appropriate in simple responses. Psychiatric exam: PRESENT: appropriate affect, normal mood. ABSENT: homicidal ideation, suicidal ideation Skin exam: PRESENT: dry, warm Results Laboratory Results: 11/16/18 03:40 11/16/18 03:40 11/16/18 11/16/18 11/16/18 03:40 03:40 03:40 WBC 10.2 RBC 3.11 L Hgb 9.0 L Hct 27.6 L MCV 89 MCH 29.1 MCHC 32.8 RDW 20.8 H Plt Count 359 Seg Neutrophils % 73.8 Lymphocytes % 15.5 Monocytes % 8.3 Eosinophils % 1.9 Basophils % 0.5 Absolute Neutrophils 7.5 Absolute Lymphocytes 1.6 Absolute Monocytes 0.8 Absolute Eosinophils 0.2 Absolute Basophils 0.0 Sodium 136.2 L Potassium 4.3 Chloride 107 Carbon Dioxide 22 Anion Gap 7 BUN 14 Creatinine 1.16 Est GFR ( Amer) 55 L Est GFR (Non-Af Amer) 45 L Glucose 86 Calcium 8.0 L Magnesium 1.4 L Impressions: Head CT 11/12/18 21:33 IMPRESSION: 1. No acute intracranial findings. 2. Senescent changes with chronic microvascular ischemia. Chest X-Ray 11/14/18 00:00 IMPRESSION: No evidence of acute intrathoracic disease. The tip of the left IJ central venous catheter terminates in the region of the superior vena cava. Assessment & Plan - Diagnosis (2) Hypomagnesemia Is this a current diagnosis for this admission?: Yes (3) Hypertension Qualifiers: Hypertension type: essential hypertension Qualified Code(s): I10 - Essential (primary) hypertension Is this a current diagnosis for this admission?: Yes (4) Chronic renal failure, stage 3 (moderate) Is this a current diagnosis for this admission?: Yes (5) Hyperlipidemia Qualifiers: Hyperlipidemia type: unspecified Qualified Code(s): E78.5 - Hyperlipidemia, unspecified Is this a current diagnosis for this admission?: Yes (7) Clostridium difficile diarrhea Is this a current diagnosis for this admission?: Yes Plan: Start on oral Vancomycin therapy. Encourage adequate oral hydration. (8) Infection due to Enterobacter cloacae Is this a current diagnosis for this admission?: Yes Plan: On urine culture. She is day # 4 on IV Rocephin. In view of her normal WBC and C.difficile toxin positive diarrhea, I will discontinue IV Rocephin therapy. - Time Time Spent with patient: 25-34 minutes Medications reviewed and adjusted accordingly: Yes Anticipated discharge: Home with Homehealth Within: Other - Inpatient Certification Based on my medical assessment, after consideration of the patient's comorbidities, presenting symptoms, or acuity I expect that the services needed warrant INPATIENT care.: Yes I certify that my determination is in accordance with my understanding of Medicare's requirements for reasonable and necessary INPATIENT services [42 CFR 412.3e].: Yes Medical Necessity: Significant Comorbidiites Make Outpatient Treatment Too Risky, Need Close Monitoring Due to Risk of Patient Decompensation, Need For IV Fluids, Need For Continuous Telemetry Monitoring, Need for IV Antibiotics, Risk of Complication if Not Cared For in Hospital, Risk of Diagnosis Which Will Requi re Inpatient Eval/Care/Monitoring Post Hospital Care: D/C Senior Research Analyst Documentation - Plan Summary Plan Summary: Start on oral Vancomycin coverage. Review culture results. Maintain on all other current medication management
[2018-11-16] MEDS: MAGNESIUM SULFATE/D5W 1 GM/100 ML RTUPB IV SCH ×2 (21:27→22:49)
[2018-11-16] MEDS: GABAPENTIN 100 MG CAPSULE PO SCH (21:27)
[2018-11-16] MEDS: FERROUS SULFATE 325 MG TABLET PO SCH (21:28)
[2018-11-16] MEDS: ATORVASTATIN CALCIUM 40 MG TABLET PO SCH (21:28)
[2018-11-17] MEDS: VANCOMYCIN HCL INJ 500 MG VIAL PO SCH ×4 (00:29→17:48)
[2018-11-17] MEDS: LEVOTHYROXINE SODIUM 0.075 MG TABLET PO SCH (06:20)
[2018-11-17 06:53] LABS: ABSOLUTE BASOPHILS # (AUTO) 0.1 10^3/uL (0.0-0.2); ABSOLUTE EOSINOPHILS # (AUTO) 0.4 10^3/uL (0.0-0.6); ABSOLUTE LYMPHOCYTES (AUTO) 1.5 10^3/uL (0.5-4.7); ABSOLUTE MONOCYTES (AUTO) 0.7 10^3/uL (0.1-1.4); ABSOLUTE NEUT (AUTO) 6.4 10^3/uL (1.7-8.2); BASOPHILS % (AUTO) 0.9 % (0-2); EOSINOPHILS % (AUTO) 4.4 % (0-6); HEMATOCRIT 27.5 % (36.0-47.0); LYMPHOCYTES % (AUTO) 16.8 % (13-45); MEAN CORPUSCULAR HEMOGLOBIN 28.9 pg (27.0-33.4); MEAN CORPUSCULAR VOLUME 88 fl (80-97); MONOCYTES % (AUTO) 7.9 % (3-13); PLATELET COUNT 360 10^3/uL (150-450); RED BLOOD COUNT 3.13 10^6/uL (3.72-5.28); RED CELL DISTRIBUTION WIDTH 20.8 % (11.5-14.0); TOTAL CELLS COUNTED % (AUTO) 100 %; WHITE BLOOD COUNT 9.1 10^3/uL (4.0-10.5)
[2018-11-17 07:14] LABS: ANION GAP 8 (5-19); BLOOD UREA NITROGEN 12 mg/dL (7-20); CALCIUM 8.1 mg/dL (8.4-10.2); CARBON DIOXIDE 21 mmol/L (22-30); CHLORIDE 107 mmol/L (98-107); GLUCOSE 78 mg/dL (75-110)
[2018-11-17] MEDS: ALLOPURINOL 100 MG TABLET PO SCH (08:34)
[2018-11-17] MEDS: ASPIRIN 81 MG TABLET, ENT COATED PO SCH (10:34)
[2018-11-17] MEDS: LACTOBACILLUS ACIDOPHILUS 250 MG TAB PO SCH ×2 (10:34→17:46)
[2018-11-17] MEDS: APIXABAN 5 MG TABLET PO SCH ×2 (10:34→17:46)
[2018-11-17] MEDS: CHOLECALCIFEROL (D3) 1,000 UNIT (25 MCG) TABLET PO SCH (10:34)
[2018-11-17] MEDS: LACOSAMIDE 100 MG TABLET PO SCH ×2 (10:34→22:50)
[2018-11-17] MEDS: LEVETIRACETAM 500 MG TABLET PO SCH ×2 (10:35→22:50)
[2018-11-17] MEDS: CINACALCET HCL 30 MG TABLET PO SCH ×2 (10:35→17:46)
[2018-11-17] MEDS: AMLODIPINE BESYLATE 10 MG TABLET PO SCH (10:36)
[2018-11-17] MEDS: MAGNESIUM OXIDE 400 MG TABLET PO SCH (10:37)
[2018-11-17] MEDS: ACETAMINOPHEN 325 MG TABLET PO PRN ×2 (12:43→22:55)
--- NOTE | 2018-11-17 15:12 | PDOC PROGRESS REPORT ---
Subjective Progress Note for:: 11/17/18 Subjective:: Patient reported improvement in her diarrhea. No abdominal pain, nausea or vomiting. There is associated decreased P.O intake due to her refusal of meal to avoid diarrhea. No fever or chills. No chest pain or difficulty with breathing. No seizure activities. Reason For Visit: SEIZURE DISORDER, HYPOMAGNESEMIA,UTI Physical Exam Vital Signs: Temp Pulse Resp BP Pulse Ox 98.5 F 96 12 141/66 H 97 11/17/18 07:53 11/17/18 07:53 11/17/18 07:53 11/17/18 07:53 11/17/18 07:53 Intake & Output 11/16/18 11/17/18 11/18/18 06:59 06:59 06:59 Intake Total 1360 1100 Balance 1360 1100 Weight 100.1 kg 99.3 kg Physical Exam: General appearance: PRESENT: no acute distress, morbidly obese Head exam: PRESENT: atraumatic, normocephalic Eye exam: PRESENT: conjunctiva pink. ABSENT: pallor, scleral icterus Ear exam: PRESENT: normal external ear exam Mouth exam: PRESENT: moist Respiratory exam: PRESENT: clear to auscultation heidi, decreased breath sounds - at lung bases Cardiovascular exam: PRESENT: RRR. ABSENT: diastolic murmur, rubs, systolic murmur GI/Abdominal exam: PRESENT: normal bowel sounds, soft. ABSENT: distended, guarding, mass, organomegaly, rebound, tenderness Extremities exam: ABSENT: pedal edema Musculoskeletal exam: PRESENT: deformity - related to multiple joints involvement with arthritis Neurological exam: PRESENT: alert, awake - and appropriate in simple responses. Psychiatric exam: PRESENT: appropriate affect, normal mood. ABSENT: homicidal ideation, suicidal ideation Skin exam: PRESENT: dry, warm Results Laboratory Results: 11/17/18 06:20 11/17/18 06:20 11/17/18 11/17/18 06:20 06:20 WBC 9.1 RBC 3.13 L Hgb 9.0 L Hct 27.5 L MCV 88 MCH 28.9 MCHC 33.0 RDW 20.8 H Plt Count 360 Seg Neutrophils % 70.0 Lymphocytes % 16.8 Monocytes % 7.9 Eosinophils % 4.4 Basophils % 0.9 Absolute Neutrophils 6.4 Absolute Lymphocytes 1.5 Absolute Monocytes 0.7 Absolute Eosinophils 0.4 Absolute Basophils 0.1 Sodium 135.6 L Potassium 4.0 Chloride 107 Carbon Dioxide 21 L Anion Gap 8 BUN 12 Creatinine 1.00 Est GFR ( Amer) > 60 Est GFR (Non-Af Amer) 54 L Glucose 78 Calcium 8.1 L Magnesium 1.7 11/13/18 00:35 Clean Catch Midstream Urine Culture - Final Enterobacter Cloacae Klebsiella Pneumoniae Impressions: Head CT 11/12/18 21:33 IMPRESSION: 1. No acute intracranial findings. 2. Senescent changes with chronic microvascular ischemia. Chest X-Ray 11/14/18 00:00 IMPRESSION: No evidence of acute intrathoracic disease. The tip of the left IJ central venous catheter terminates in the region of the superior vena cava. Assessment & Plan - Diagnosis (2) Hypomagnesemia Is this a current diagnosis for this admission?: Yes (3) Hypertension Qualifiers: Hypertension type: essential hypertension Qualified Code(s): I10 - Essential (primary) hypertension Is this a current diagnosis for this admission?: Yes (4) Chronic renal failure, stage 3 (moderate) Is this a current diagnosis for this admission?: Yes (5) Hyperlipidemia Qualifiers: Hyperlipidemia type: unspecified Qualified Code(s): E78.5 - Hyperlipidemia, unspecified Is this a current diagnosis for this admission?: Yes (7) Clostridium difficile diarrhea Is this a current diagnosis for this admission?: Yes (8) Infection due to Enterobacter cloacae Is this a current diagnosis for this admission?: Yes - Time Time Spent with patient: 25-34 minutes Medications reviewed and adjusted accordingly: Yes Anticipated discharge: Home with Homehealth Within: Other - Inpatient Certification Based on my medical assessment, after consideration of the patient's comorbidi ties, presenting symptoms, or acuity I expect that the services needed warrant INPATIENT care.: Yes I certify that my determination is in accordance with my understanding of Willie fowler's requirements for reasonable and necessary INPATIENT services [42 CFR 412.3e].: Yes Medical Necessity: Significant Comorbidiites Make Outpatient Treatment Too Risky, Need Close Monitoring Due to Risk of Patient Decompensation, Need For IV Fluids, Need For Continuous Telemetry Monitoring, Risk of Complication if Not Cared For in Hospital, Risk of Diagnosis Which Will Require Inpatient Eval/Care/Monitoring Post Hospital Care: D/C Collet Maker Documentation - Plan Summary Plan Summary: Continue current medication management. Start on Probiotic therapy.
[2018-11-17] MEDS: ATORVASTATIN CALCIUM 40 MG TABLET PO SCH (22:49)
[2018-11-17] MEDS: FERROUS SULFATE 325 MG TABLET PO SCH (22:50)
[2018-11-17] MEDS: GABAPENTIN 100 MG CAPSULE PO SCH (22:50)
[2018-11-18] MEDS: VANCOMYCIN HCL INJ 500 MG VIAL PO SCH ×4 (00:46→18:03)
[2018-11-18] MEDS: NORMAL SALINE 1000 ML 1,000 ML IV PRN (04:31)
[2018-11-18] MEDS: LEVOTHYROXINE SODIUM 0.075 MG TABLET PO SCH (06:27)
[2018-11-18] MEDS: ALLOPURINOL 100 MG TABLET PO SCH (08:45)
--- NOTE | 2018-11-18 10:06 | PDOC PROGRESS REPORT ---
Subjective Progress Note for:: 11/18/18 Subjective:: Patient is currently doing better Is currently on a p.o. vancomycin for C. difficile colitis Denied any abdominal pain no nausea no vomiting Reason For Visit: SEIZURE DISORDER, HYPOMAGNESEMIA,UTI Physical Exam Vital Signs: Temp Pulse Resp BP Pulse Ox 98.4 F 88 15 117/51 L 98 11/18/18 04:00 11/18/18 07:00 11/18/18 04:00 11/18/18 04:00 11/18/18 04:00 Intake & Output 11/17/18 11/18/18 11/19/18 06:59 06:59 06:59 Intake Total 1100 1225 Balance 1100 1225 Weight 99.3 kg 98.1 kg General appearance: PRESENT: no acute distress, well-developed, well-nourished Head exam: PRESENT: atraumatic, normocephalic Eye exam: PRESENT: conjunctiva pink, EOMI, PERRLA. ABSENT: scleral icterus Ear exam: PRESENT: normal external ear exam Mouth exam: PRESENT: moist, tongue midline Neck exam: PRESENT: full ROM. ABSENT: carotid bruit, JVD, lymphadenopathy, thyromegaly Respiratory exam: PRESENT: clear to auscultation heidi Cardiovascular exam: PRESENT: RRR. ABSENT: diastolic murmur, rubs, systolic murmur Pulses: PRESENT: normal dorsalis pedis pul, +2 pedal pulses bilateral Vascular exam: PRESENT: normal capillary refill GI/Abdominal exam: PRESENT: normal bowel sounds, soft. ABSENT: distended, guarding, mass, organolmegaly, rebound, tenderness Rectal exam: PRESENT: deferred Extremities exam: ABSENT: pedal edema Neurological exam: PRESENT: alert, awake, oriented to person, oriented to place, oriented to time, oriented to situation, CN II-XII grossly intact. ABSENT: motor sensory deficit Psychiatric exam: PRESENT: appropriate affect, normal mood. ABSENT: homicidal ideation, suicidal ideation Skin exam: PRESENT: dry, intact, warm. ABSENT: cyanosis, rash Results Laboratory Results: 11/17/18 06:20 11/17/18 06:20 11/13/18 05:59 Blood Blood Culture - Final NO GROWTH IN 5 DAYS 11/13/18 02:31 Blood Blood Culture - Final NO GROWTH IN 5 DAYS 11/13/18 00:35 Clean Catch Midstream Urine Culture - Final Enterobacter Cloacae Klebsiella Pneumoniae Impressions: Head CT 11/12/18 21:33 IMPRESSION: 1. No acute intracranial findings. 2. Senescent changes with chronic microvascular ischemia. Chest X-Ray 11/14/18 00:00 IMPRESSION: No evidence of acute intrathoracic disease. The tip of the left IJ central venous catheter terminates in the region of the superior vena cava. Assessment & Plan - Diagnosis (1) Clostridium difficile diarrhea Is this a current diagnosis for this admission?: Yes (3) Hypomagnesemia Is this a current diagnosis for this admission?: Yes (4) Chronic kidney disease, stage 3 Is this a current diagnosis for this admission?: Yes (5) Hypertension Qualifiers: Hypertension type: essential hypertension Qualified Code(s): I10 - Essential (primary) hypertension Is this a current diagnosis for this admission?: Yes - Time Time Spent with patient: 15-24 minutes Medications reviewed and adjusted accordingly: Yes Anticipated discharge: Home Within: Other - Plan Summary Plan Summary: Continues to current medications we will recheck blood work in the morning physical therapy evaluations
[2018-11-18] MEDS: LEVETIRACETAM 500 MG TABLET PO SCH ×2 (11:04→21:07)
[2018-11-18] MEDS: CINACALCET HCL 30 MG TABLET PO SCH ×2 (11:06→18:05)
[2018-11-18] MEDS: LACTOBACILLUS ACIDOPHILUS 250 MG TAB PO SCH ×2 (11:06→18:06)
[2018-11-18] MEDS: ASPIRIN 81 MG TABLET, ENT COATED PO SCH (11:06)
[2018-11-18] MEDS: LACOSAMIDE 100 MG TABLET PO SCH ×2 (11:06→21:06)
[2018-11-18] MEDS: CHOLECALCIFEROL (D3) 1,000 UNIT (25 MCG) TABLET PO SCH (11:07)
[2018-11-18] MEDS: AMLODIPINE BESYLATE 10 MG TABLET PO SCH (11:07)
[2018-11-18] MEDS: MAGNESIUM OXIDE 400 MG TABLET PO SCH (11:08)
[2018-11-18] MEDS: APIXABAN 5 MG TABLET PO SCH ×2 (11:09→18:06)
[2018-11-18] MEDS: GABAPENTIN 100 MG CAPSULE PO SCH (21:06)
[2018-11-18] MEDS: ATORVASTATIN CALCIUM 40 MG TABLET PO SCH (21:07)
[2018-11-18] MEDS: FERROUS SULFATE 325 MG TABLET PO SCH (21:07)
[2018-11-19] MEDS: VANCOMYCIN HCL INJ 500 MG VIAL PO SCH ×5 (01:48→23:14)
[2018-11-19] MEDS: LEVOTHYROXINE SODIUM 0.075 MG TABLET PO SCH (05:26)
[2018-11-19 06:28] LABS: ABSOLUTE EOSINOPHILS # (AUTO) 0.4 10^3/uL (0.0-0.6); ABSOLUTE LYMPHOCYTES (AUTO) 1.8 10^3/uL (0.5-4.7); ABSOLUTE MONOCYTES (AUTO) 0.7 10^3/uL (0.1-1.4); ABSOLUTE NEUT (AUTO) 3.7 10^3/uL (1.7-8.2); BASOPHILS % (AUTO) 0.7 % (0-2); EOSINOPHILS % (AUTO) 5.5 % (0-6); HEMATOCRIT 25.8 % (36.0-47.0); HEMOGLOBIN 8.6 g/dL (12.0-15.5); LYMPHOCYTES % (AUTO) 27.9 % (13-45); MEAN CORPUSCULAR HEMOGLOBIN 29.2 pg (27.0-33.4); MEAN CORPUSCULAR HGB CONC 33.3 g/dL (32.0-36.0); MEAN CORPUSCULAR VOLUME 88 fl (80-97); MONOCYTES % (AUTO) 10.1 % (3-13); PLATELET COUNT 359 10^3/uL (150-450); RED BLOOD COUNT 2.95 10^6/uL (3.72-5.28); SEGMENTED NEUTROPHILS % (AUTO) 55.8 % (42-78); TOTAL CELLS COUNTED % (AUTO) 100 %; WHITE BLOOD COUNT 6.6 10^3/uL (4.0-10.5)
[2018-11-19 06:55] LABS: ANION GAP 9 (5-19); BLOOD UREA NITROGEN 8 mg/dL (7-20); CALCIUM 7.8 mg/dL (8.4-10.2); CARBON DIOXIDE 20 mmol/L (22-30); CHLORIDE 109 mmol/L (98-107); GLUCOSE 75 mg/dL (75-110); POTASSIUM 4.1 mmol/L (3.6-5.0)
[2018-11-19] MEDS: ALLOPURINOL 100 MG TABLET PO SCH (08:10)
[2018-11-19] MEDS: NORMAL SALINE 1000 ML 1,000 ML IV PRN ×2 (09:43→23:14)
[2018-11-19] MEDS: CINACALCET HCL 30 MG TABLET PO SCH ×2 (09:44→17:17)
[2018-11-19] MEDS: AMLODIPINE BESYLATE 10 MG TABLET PO SCH (09:44)
[2018-11-19] MEDS: ASPIRIN 81 MG TABLET, ENT COATED PO SCH (09:44)
[2018-11-19] MEDS: LACOSAMIDE 100 MG TABLET PO SCH ×2 (09:44→21:40)
[2018-11-19] MEDS: LACTOBACILLUS ACIDOPHILUS 250 MG TAB PO SCH ×2 (09:44→17:17)
[2018-11-19] MEDS: LEVETIRACETAM 500 MG TABLET PO SCH ×2 (09:44→21:39)
[2018-11-19] MEDS: CHOLECALCIFEROL (D3) 1,000 UNIT (25 MCG) TABLET PO SCH (09:45)
[2018-11-19] MEDS: MAGNESIUM OXIDE 400 MG TABLET PO SCH (09:45)
[2018-11-19] MEDS: APIXABAN 5 MG TABLET PO SCH ×2 (09:45→17:17)
--- NOTE | 2018-11-19 11:03 | PDOC PROGRESS REPORT ---
Subjective Progress Note for:: 11/19/18 Subjective:: Patient is currently doing better Is currently on a p.o. vancomycin for C. difficile colitis Denied any abdominal pain no nausea no vomiting Reason For Visit: SEIZURE DISORDER, HYPOMAGNESEMIA,UTI Physical Exam Vital Signs: Temp Pulse Resp BP Pulse Ox 98.2 F 83 18 137/66 H 97 11/19/18 03:09 11/19/18 07:00 11/19/18 03:09 11/19/18 03:09 11/19/18 03:09 Intake & Output 11/18/18 11/19/18 11/20/18 06:59 06:59 06:59 Intake Total 1225 537 Balance 1225 537 Weight 98.1 kg 100.3 kg General appearance: PRESENT: no acute distress, well-developed, well-nourished Head exam: PRESENT: atraumatic, normocephalic Eye exam: PRESENT: conjunctiva pink, EOMI, PERRLA. ABSENT: scleral icterus Ear exam: PRESENT: normal external ear exam Mouth exam: PRESENT: moist, tongue midline Neck exam: PRESENT: full ROM. ABSENT: carotid bruit, JVD, lymphadenopathy, thyromegaly Respiratory exam: PRESENT: clear to auscultation heidi Cardiovascular exam: PRESENT: RRR. ABSENT: diastolic murmur, rubs, systolic murmur Pulses: PRESENT: normal dorsalis pedis pul, +2 pedal pulses bilateral Vascular exam: PRESENT: normal capillary refill GI/Abdominal exam: PRESENT: normal bowel sounds, soft. ABSENT: distended, guarding, mass, organolmegaly, rebound, tenderness Rectal exam: PRESENT: deferred Neurological exam: PRESENT: alert, awake, oriented to person, oriented to place, oriented to time, oriented to situation, CN II-XII grossly intact. ABSENT: motor sensory deficit Psychiatric exam: PRESENT: appropriate affect, normal mood. ABSENT: homicidal ideation, suicidal ideation Skin exam: PRESENT: dry, intact, warm. ABSENT: cyanosis, rash Results Laboratory Results: 11/19/18 05:35 11/19/18 05:35 11/19/18 11/19/18 05:35 05:35 WBC 6.6 RBC 2.95 L Hgb 8.6 L Hct 25.8 L MCV 88 MCH 29.2 MCHC 33.3 RDW 21.0 H Plt Count 359 Seg Neutrophils % 55.8 Lymphocytes % 27.9 Monocytes % 10.1 Eosinophils % 5.5 Basophils % 0.7 Absolute Neutrophils 3.7 Absolute Lymphocytes 1.8 Absolute Monocytes 0.7 Absolute Eosinophils 0.4 Absolute Basophils 0.0 Sodium 137.5 Potassium 4.1 Chloride 109 H Carbon Dioxide 20 L Anion Gap 9 BUN 8 Creatinine 0.89 Est GFR ( Amer) > 60 Est GFR (Non-Af Amer) > 60 Glucose 75 Calcium 7.8 L Impressions: Head CT 11/12/18 21:33 IMPRESSION: 1. No acute intracranial findings. 2. Senescent changes with chronic microvascular ischemia. Chest X-Ray 11/14/18 00:00 IMPRESSION: No evidence of acute intrathoracic disease. The tip of the left IJ central venous catheter terminates in the region of the superior vena cava. Assessment & Plan - Diagnosis (1) Clostridium difficile diarrhea Is this a current diagnosis for this admission?: Yes (3) Hypomagnesemia Is this a current diagnosis for this admission?: Yes (4) Chronic kidney disease, stage 3 Is this a current diagnosis for this admission?: Yes (5) Hypertension Qualifiers: Hypertension type: essential hypertension Qualified Code(s): I10 - Essential (primary) hypertension Is this a current diagnosis for this admission?: Yes - Time Time Spent with patient: 15-24 minutes Medications reviewed and adjusted accordingly: Yes Anticipated discharge: Home - Plan Summary Plan Summary: Continues to p.o. vancomycin's Patient all lab is stable's
[2018-11-19] MEDS: GABAPENTIN 100 MG CAPSULE PO SCH (21:39)
[2018-11-19] MEDS: FERROUS SULFATE 325 MG TABLET PO SCH (21:40)
[2018-11-19] MEDS: ATORVASTATIN CALCIUM 40 MG TABLET PO SCH (21:40)
[2018-11-20 04:30] LABS: ANION GAP 5 (5-19); BLOOD UREA NITROGEN 6 mg/dL (7-20); CALCIUM 7.7 mg/dL (8.4-10.2); CARBON DIOXIDE 22 mmol/L (22-30); CHLORIDE 112 mmol/L (98-107); GLUCOSE 93 mg/dL (75-110); POTASSIUM 3.7 mmol/L (3.6-5.0)
[2018-11-20] MEDS: LEVOTHYROXINE SODIUM 0.075 MG TABLET PO SCH (05:33)
[2018-11-20] MEDS: VANCOMYCIN HCL INJ 500 MG VIAL PO SCH ×3 (05:33→17:10)
[2018-11-20] MEDS: ASPIRIN 81 MG TABLET, ENT COATED PO SCH (09:24)
[2018-11-20] MEDS: APIXABAN 5 MG TABLET PO SCH ×2 (09:24→17:10)
[2018-11-20] MEDS: LACTOBACILLUS ACIDOPHILUS 250 MG TAB PO SCH ×2 (09:24→17:10)
[2018-11-20] MEDS: LEVETIRACETAM 500 MG TABLET PO SCH ×2 (09:24→21:39)
[2018-11-20] MEDS: LACOSAMIDE 100 MG TABLET PO SCH (09:24)
[2018-11-20] MEDS: ALLOPURINOL 100 MG TABLET PO SCH (09:24)
[2018-11-20] MEDS: CHOLECALCIFEROL (D3) 1,000 UNIT (25 MCG) TABLET PO SCH (09:24)
[2018-11-20] MEDS: MAGNESIUM OXIDE 400 MG TABLET PO SCH (09:24)
[2018-11-20] MEDS: CINACALCET HCL 30 MG TABLET PO SCH ×2 (09:24→17:10)
[2018-11-20] MEDS: AMLODIPINE BESYLATE 10 MG TABLET PO SCH (09:24)
--- NOTE | 2018-11-20 11:31 | PDOC PROGRESS REPORT ---
Subjective Progress Note for:: 11/20/18 Subjective:: Patient is currently doing better Is currently on a p.o. vancomycin for C. difficile colitis Denied any abdominal pain no nausea no vomiting Reason For Visit: SEIZURE DISORDER, HYPOMAGNESEMIA,UTI Physical Exam Vital Signs: Temp Pulse Resp BP Pulse Ox 97.8 F 88 16 123/59 L 96 11/20/18 03:07 11/20/18 07:00 11/20/18 03:07 11/20/18 03:07 11/20/18 03:07 Intake & Output 11/19/18 11/20/18 11/21/18 06:59 06:59 06:59 Intake Total 537 1294 Balance 537 1294 Weight 100.3 kg 100.7 kg General appearance: PRESENT: no acute distress, well-developed, well-nourished Head exam: PRESENT: atraumatic, normocephalic Eye exam: PRESENT: conjunctiva pink, EOMI, PERRLA. ABSENT: scleral icterus Ear exam: PRESENT: normal external ear exam Mouth exam: PRESENT: moist, tongue midline Neck exam: PRESENT: full ROM. ABSENT: carotid bruit, JVD, lymphadenopathy, thyromegaly Respiratory exam: PRESENT: clear to auscultation heidi Cardiovascular exam: PRESENT: RRR. ABSENT: diastolic murmur, rubs, systolic murmur Pulses: PRESENT: normal dorsalis pedis pul, +2 pedal pulses bilateral Vascular exam: PRESENT: normal capillary refill GI/Abdominal exam: PRESENT: normal bowel sounds, soft. ABSENT: distended, guarding, mass, organolmegaly, rebound, tenderness Rectal exam: PRESENT: deferred Neurological exam: PRESENT: alert, awake, oriented to person, oriented to place, oriented to time, oriented to situation, CN II-XII grossly intact. ABSENT: motor sensory deficit Psychiatric exam: PRESENT: appropriate affect, normal mood. ABSENT: homicidal ideation, suicidal ideation Skin exam: PRESENT: dry, intact, warm. ABSENT: cyanosis, rash Results Laboratory Results: 11/19/18 05:35 11/20/18 03:55 11/20/18 03:55 Sodium 139.4 Potassium 3.7 Chloride 112 H Carbon Dioxide 22 Anion Gap 5 BUN 6 L Creatinine 0.82 Est GFR ( Amer) > 60 Est GFR (Non-Af Amer) > 60 Glucose 93 Calcium 7.7 L Impressions: Head CT 11/12/18 21:33 IMPRESSION: 1. No acute intracranial findings. 2. Senescent changes with chronic microvascular ischemia. Chest X-Ray 11/14/18 00:00 IMPRESSION: No evidence of acute intrathoracic disease. The tip of the left IJ central venous catheter terminates in the region of the superior vena cava. Assessment & Plan - Diagnosis (1) Clostridium difficile diarrhea Is this a current diagnosis for this admission?: Yes (3) Hypomagnesemia Is this a current diagnosis for this admission?: Yes (4) Chronic kidney disease, stage 3 Is this a current diagnosis for this admission?: Yes (5) Hypertension Qualifiers: Hypertension type: essential hypertension Qualified Code(s): I10 - Essential (primary) hypertension Is this a current diagnosis for this admission?: Yes - Time Time Spent with patient: 15-24 minutes Medications reviewed and adjusted accordingly: Yes Anticipated discharge: Other Within: Other - Plan Summary Plan Summary: cont curr med
[2018-11-20] MEDS: FERROUS SULFATE 325 MG TABLET PO SCH (21:39)
[2018-11-20] MEDS: GABAPENTIN 100 MG CAPSULE PO SCH (21:39)
[2018-11-20] MEDS: ATORVASTATIN CALCIUM 40 MG TABLET PO SCH (21:39)
[2018-11-20] MEDS: ACETAMINOPHEN 325 MG TABLET PO PRN (23:30)
[2018-11-21] MEDS: VANCOMYCIN HCL INJ 500 MG VIAL PO SCH ×4 (03:15→17:06)
[2018-11-21] MEDS: LEVOTHYROXINE SODIUM 0.075 MG TABLET PO SCH (05:35)
[2018-11-21] MEDS: NORMAL SALINE 1000 ML 1,000 ML IV PRN (05:38)
[2018-11-21 06:16] LABS: BLOOD UREA NITROGEN 5 mg/dL (7-20); CALCIUM 7.8 mg/dL (8.4-10.2); GLUCOSE 89 mg/dL (75-110); POTASSIUM 3.8 mmol/L (3.6-5.0)
[2018-11-21 06:21] LABS: CARBON DIOXIDE 23 mmol/L (22-30); CHLORIDE 112 mmol/L (98-107)
[2018-11-21 06:26] LABS: ANION GAP 5 (5-19)
[2018-11-21] MEDS: MAGNESIUM OXIDE 400 MG TABLET PO SCH (09:09)
[2018-11-21] MEDS: LACTOBACILLUS ACIDOPHILUS 250 MG TAB PO SCH ×2 (09:09→17:05)
[2018-11-21] MEDS: APIXABAN 5 MG TABLET PO SCH ×2 (09:09→17:05)
[2018-11-21] MEDS: CHOLECALCIFEROL (D3) 1,000 UNIT (25 MCG) TABLET PO SCH (09:09)
[2018-11-21] MEDS: ALLOPURINOL 100 MG TABLET PO SCH (09:09)
[2018-11-21] MEDS: CINACALCET HCL 30 MG TABLET PO SCH ×2 (09:09→17:05)
[2018-11-21] MEDS: LEVETIRACETAM 500 MG TABLET PO SCH ×2 (09:09→21:20)
[2018-11-21] MEDS: ASPIRIN 81 MG TABLET, ENT COATED PO SCH (09:10)
[2018-11-21] MEDS: AMLODIPINE BESYLATE 10 MG TABLET PO SCH (09:10)
[2018-11-21] MEDS: FERROUS SULFATE 325 MG TABLET PO SCH (21:20)
[2018-11-21] MEDS: ATORVASTATIN CALCIUM 40 MG TABLET PO SCH (21:20)
[2018-11-21] MEDS: ACETAMINOPHEN 325 MG TABLET PO PRN (21:20)
[2018-11-21] MEDS: GABAPENTIN 100 MG CAPSULE PO SCH (21:21)
--- NOTE | 2018-11-21 23:02 | PDOC PROGRESS REPORT ---
Subjective Progress Note for:: 11/21/18 Subjective:: Patient seen by the bedside she was admitted for the management of status epilepticus, C. difficile colitis Presently on p.o. vancomycin, the serum level of Keppra was elevated Reason For Visit: SEIZURE DISORDER, HYPOMAGNESEMIA,UTI Physical Exam Vital Signs: Temp Pulse Resp BP Pulse Ox 98.1 F 94 20 113/53 L 96 11/21/18 19:44 11/21/18 19:44 11/21/18 19:44 11/21/18 19:44 11/21/18 19:44 Intake & Output 11/20/18 11/21/18 11/22/18 06:59 06:59 06:59 Intake Total 1294 2020 480 Output Total 600 Balance 1294 2020 -120 Weight 100.7 kg 100.8 kg General appearance: PRESENT: no acute distress Head exam: PRESENT: atraumatic Eye exam: PRESENT: PERRLA Mouth exam: PRESENT: moist, tongue midline Neck exam: PRESENT: full ROM Respiratory exam: PRESENT: clear to auscultation heidi Cardiovascular exam: PRESENT: RRR, +S1, +S2 Pulses: PRESENT: normal dorsalis pedis pul, +2 pedal pulses bilateral Vascular exam: PRESENT: normal capillary refill GI/Abdominal exam: PRESENT: normal bowel sounds, soft Rectal exam: PRESENT: deferred Neurological exam: PRESENT: alert Psychiatric exam: PRESENT: appropriate affect, normal mood Skin exam: PRESENT: dry, intact, warm Results Laboratory Results: 11/19/18 05:35 11/21/18 05:40 11/21/18 05:40 Sodium 139.4 Potassium 3.8 Chloride 112 H Carbon Dioxide 23 Anion Gap 5 BUN 5 L Creatinine 0.83 Est GFR ( Amer) > 60 Est GFR (Non-Af Amer) > 60 Glucose 89 Calcium 7.8 L Impressions: Head CT 11/12/18 21:33 IMPRESSION: 1. No acute intracranial findings. 2. Senescent changes with chronic microvascular ischemia. Chest X-Ray 11/14/18 00:00 IMPRESSION: No evidence of acute intrathoracic disease. The tip of the left IJ central venous catheter terminates in the region of the superior vena cava. Assessment & Plan - Diagnosis (1) Status epilepticus Is this a current diagnosis for this admission?: Yes Plan: The level of Keppra is elevated, patient presently on Keppra 1500 mg p.o. twice daily, reduce dose to 1000 mg p.o. twice daily (2) Clostridium difficile diarrhea Is this a current diagnosis for this admission?: Yes Plan: Continue p.o. vancomycin (3) Chronic kidney disease, stage 3 Is this a current diagnosis for this admission?: Yes
[2018-11-22] MEDS: LEVETIRACETAM 500 MG TABLET PO SCH ×7 (01:09→23:37)
[2018-11-22] MEDS: VANCOMYCIN HCL INJ 500 MG VIAL PO SCH ×5 (01:14→23:37)
[2018-11-22] MEDS: LEVOTHYROXINE SODIUM 0.075 MG TABLET PO SCH (05:35)
[2018-11-22] MEDS: CHOLECALCIFEROL (D3) 1,000 UNIT (25 MCG) TABLET PO SCH (09:17)
[2018-11-22] MEDS: APIXABAN 5 MG TABLET PO SCH ×2 (09:17→17:08)
[2018-11-22] MEDS: MAGNESIUM OXIDE 400 MG TABLET PO SCH (09:17)
[2018-11-22] MEDS: ASPIRIN 81 MG TABLET, ENT COATED PO SCH (09:17)
[2018-11-22] MEDS: CINACALCET HCL 30 MG TABLET PO SCH ×2 (09:18→17:08)
[2018-11-22] MEDS: ALLOPURINOL 100 MG TABLET PO SCH (09:18)
[2018-11-22] MEDS: LACTOBACILLUS ACIDOPHILUS 250 MG TAB PO SCH ×2 (09:19→17:08)
[2018-11-22] MEDS: AMLODIPINE BESYLATE 10 MG TABLET PO SCH (09:19)
--- NOTE | 2018-11-22 22:07 | PDOC PROGRESS REPORT ---
Subjective Progress Note for:: 11/22/18 Subjective:: Patient was seen by the bedside, she was on Vimpat before this admission, she will be started back on the medication, my understanding is that she will be going to rehabilitation after discharge, discharge planning is working on that Reason For Visit: SEIZURE DISORDER, HYPOMAGNESEMIA,UTI Physical Exam Vital Signs: Temp Pulse Resp BP Pulse Ox 98.6 F 112 H 22 H 119/67 95 11/22/18 20:01 11/22/18 20:01 11/22/18 20:01 11/22/18 20:01 11/22/18 20:01 Intake & Output 11/21/18 11/22/18 11/23/18 06:59 06:59 06:59 Intake Total 2019 1480 555 Output Total 850 Balance 2019 630 555 Weight 100.8 kg 101.2 kg General appearance: PRESENT: no acute distress Eye exam: PRESENT: PERRLA Respiratory exam: PRESENT: clear to auscultation heidi Cardiovascular exam: PRESENT: +S1, +S2 GI/Abdominal exam: PRESENT: soft Neurological exam: PRESENT: alert, CN II-XII grossly intact Results Laboratory Results: 11/19/18 05:35 11/21/18 05:40 Impressions: Head CT 11/12/18 21:33 IMPRESSION: 1. No acute intracranial findings. 2. Senescent changes with chronic microvascular ischemia. Chest X-Ray 11/14/18 00:00 IMPRESSION: No evidence of acute intrathoracic disease. The tip of the left IJ central venous catheter terminates in the region of the superior vena cava. Assessment & Plan - Diagnosis (1) Status epilepticus Is this a current diagnosis for this admission?: Yes Plan: The level of Keppra is elevated, patient presently on Keppra 1500 mg p.o. twice daily, reduce dose to 1000 mg p.o. twice daily (2) Clostridium difficile diarrhea Is this a current diagnosis for this admission?: Yes Plan: Continue p.o. vancomycin (3) Chronic kidney disease, stage 3 Is this a current diagnosis for this admission?: Yes
[2018-11-22] MEDS: ATORVASTATIN CALCIUM 40 MG TABLET PO SCH (23:37)
[2018-11-22] MEDS: LACOSAMIDE 100 MG TABLET PO SCH (23:38)
[2018-11-22] MEDS: FERROUS SULFATE 325 MG TABLET PO SCH (23:39)
[2018-11-22] MEDS: GABAPENTIN 100 MG CAPSULE PO SCH (23:39)
[2018-11-23] MEDS: VANCOMYCIN HCL INJ 500 MG VIAL PO SCH (05:32)
[2018-11-23] MEDS: LEVOTHYROXINE SODIUM 0.075 MG TABLET PO SCH (05:33)
[2018-11-23] MEDS: MAGNESIUM OXIDE 400 MG TABLET PO SCH (09:08)
[2018-11-23] MEDS: LACOSAMIDE 100 MG TABLET PO SCH ×2 (09:08→21:57)
[2018-11-23] MEDS: LEVETIRACETAM 500 MG TABLET PO SCH ×2 (09:08→21:56)
[2018-11-23] MEDS: AMLODIPINE BESYLATE 10 MG TABLET PO SCH (09:08)
[2018-11-23] MEDS: ALLOPURINOL 100 MG TABLET PO SCH (09:09)
[2018-11-23] MEDS: APIXABAN 5 MG TABLET PO SCH ×2 (09:09→17:21)
[2018-11-23] MEDS: LACTOBACILLUS ACIDOPHILUS 250 MG TAB PO SCH ×2 (09:09→17:20)
[2018-11-23] MEDS: CHOLECALCIFEROL (D3) 1,000 UNIT (25 MCG) TABLET PO SCH (09:09)
[2018-11-23] MEDS: ASPIRIN 81 MG TABLET, ENT COATED PO SCH (09:09)
[2018-11-23] MEDS: CINACALCET HCL 30 MG TABLET PO SCH ×2 (09:10→17:20)
[2018-11-23] MEDS: ACETAMINOPHEN 325 MG TABLET PO PRN (11:34)
--- NOTE | 2018-11-23 20:00 | PDOC PROGRESS REPORT ---
Subjective Progress Note for:: 11/23/18 Subjective:: Patient seen by the bedside, urine culture grew Enterobacter cloaca Reason For Visit: SEIZURE DISORDER, HYPOMAGNESEMIA,UTI Physical Exam Vital Signs: Temp Pulse Resp BP Pulse Ox 98.4 F 104 H 16 131/85 H 96 11/23/18 16:42 11/23/18 16:42 11/23/18 16:42 11/23/18 16:42 11/23/18 16:42 Intake & Output 11/22/18 11/23/18 11/24/18 06:59 06:59 06:59 Intake Total 1480 555 564 Output Total 850 Balance 630 555 564 Weight 101.2 kg 101.4 kg General appearance: PRESENT: no acute distress Eye exam: PRESENT: PERRLA Respiratory exam: PRESENT: clear to auscultation heidi Cardiovascular exam: PRESENT: +S1, +S2 GI/Abdominal exam: PRESENT: soft Neurological exam: PRESENT: alert Results Laboratory Results: 11/19/18 05:35 11/21/18 05:40 Impressions: Head CT 11/12/18 21:33 IMPRESSION: 1. No acute intracranial findings. 2. Senescent changes with chronic microvascular ischemia. Chest X-Ray 11/14/18 00:00 IMPRESSION: No evidence of acute intrathoracic disease. The tip of the left IJ central venous catheter terminates in the region of the superior vena cava. Assessment & Plan - Diagnosis (1) Status epilepticus Is this a current diagnosis for this admission?: Yes Plan: The level of Keppra is elevated, patient presently on Keppra 1500 mg p.o. twice daily, reduce dose to 1000 mg p.o. twice daily (2) Clostridium difficile diarrhea Is this a current diagnosis for this admission?: Yes Plan: Continue p.o. vancomycin (3) Chronic kidney disease, stage 3 Is this a current diagnosis for this admission?: Yes (4) Urinary tract infection Qualifiers: Urinary tract infection type: site unspecified Hematuria presence: without hematuria Qualified Code(s): N39.0 - Urinary tract infection, site not specified Is this a current diagnosis for this admission?: Yes Plan: Start ciprofloxacin
[2018-11-23] MEDS: CIPROFLOXACIN HCL 500 MG TABLET PO SCH (21:56)
[2018-11-23] MEDS: GABAPENTIN 100 MG CAPSULE PO SCH (21:57)
[2018-11-23] MEDS: ATORVASTATIN CALCIUM 40 MG TABLET PO SCH (21:58)
[2018-11-24] MEDS: LEVOTHYROXINE SODIUM 0.075 MG TABLET PO SCH (05:22)
[2018-11-24] MEDS: APIXABAN 5 MG TABLET PO SCH ×2 (09:13→17:12)
[2018-11-24] MEDS: ALLOPURINOL 100 MG TABLET PO SCH (09:13)
[2018-11-24] MEDS: LACTOBACILLUS ACIDOPHILUS 250 MG TAB PO SCH ×2 (09:13→17:12)
[2018-11-24] MEDS: ASPIRIN 81 MG TABLET, ENT COATED PO SCH (09:13)
[2018-11-24] MEDS: MAGNESIUM OXIDE 400 MG TABLET PO SCH (09:14)
[2018-11-24] MEDS: LEVETIRACETAM 500 MG TABLET PO SCH ×2 (09:14→21:13)
[2018-11-24] MEDS: CINACALCET HCL 30 MG TABLET PO SCH ×2 (09:14→17:12)
[2018-11-24] MEDS: AMLODIPINE BESYLATE 10 MG TABLET PO SCH (09:14)
[2018-11-24] MEDS: CHOLECALCIFEROL (D3) 1,000 UNIT (25 MCG) TABLET PO SCH (09:15)
[2018-11-24] MEDS: LACOSAMIDE 100 MG TABLET PO SCH ×2 (09:15→21:13)
[2018-11-24] MEDS: CIPROFLOXACIN HCL 500 MG TABLET PO SCH ×2 (09:17→21:14)
[2018-11-24] MEDS: ACETAMINOPHEN 325 MG TABLET PO PRN (09:17)
[2018-11-24] MEDS: FERROUS SULFATE 325 MG TABLET PO SCH (17:12)
--- NOTE | 2018-11-24 19:38 | PDOC TRANSFER SUMMARY ---
General - Admit/Disc Date/PCP Admission Date/Primary Care Provider: 11/13/18 05:13 MARY RASHID MD Discharge Date: 11/25/18 - Discharge Diagnosis (1) Status epilepticus Is this a current diagnosis for this admission?: Yes (2) Clostridium difficile diarrhea Is this a current diagnosis for this admission?: Yes (3) Chronic kidney disease, stage 3 Is this a current diagnosis for this admission?: Yes (4) Urinary tract infection Is this a current diagnosis for this admission?: Yes - Additional Information Resuscitation Status: Full Code Discharge Diet: Regular Discharge Activity: Activity As Tolerated Home Medications: Allopurinol [Zyloprim 100 mg Tablet] 100 mg PO QAM 08/10/18 Ferrous Sulfate [Feosol 325 mg Tablet] 325 mg PO QHS 08/10/18 Levothyroxine Sodium [Synthroid 0.075 mg Tablet] 0.075 mg PO Q6AM 08/10/18 Amlodipine Besylate [Norvasc 10 mg Tablet] 10 mg PO DAILY 11/13/18 Apixaban [Eliquis 5 mg Tablet] 5 mg PO BID 11/13/18 Aspirin [Ecotrin 81 mg EC Tablet] 81 mg PO DAILY 11/13/18 Atorvastatin Calcium [Lipitor 40 mg Tablet] 40 mg PO QHS 11/13/18 Cholecalciferol (Vitamin D3) [Vitamin D3 1000 Unit Tablet] 1,000 unit PO DAILY 11/13/18 Cinacalcet HCl [Sensipar 30 mg Tablet] 30 mg PO BID 11/13/18 Gabapentin [Neurontin 100 mg Capsule] 200 mg PO QHS 11/13/18 Lacosamide [Vimpat 50 mg Tablet] 100 mg PO Q12 11/13/18 Levetiracetam 1,000 mg PO Q12 11/13/18 Lubiprostone [Amitiza 24 Mcg Capsule] 24 mcg PO Q12 11/13/18 Acetaminophen [Tylenol 325 mg Tablet] 650 mg PO Q6HP PRN tablet 11/24/18 Lacosamide [Vimpat 100 mg Tablet] 100 mg PO Q12 tablet 11/24/18 Lactobacillus Acidophilus [Bacid 250 mg Tablet] 500 mg PO BID tab 11/24/18 Levetiracetam [Keppra 500 mg Tablet] 1,000 mg PO Q12 tablet 11/24/18 History of Present Illness Admission Date/PCP: 11/13/18 05:13 MARY RASHID MD History of Present Illness: IVY CLAIRE is a 78 year old female,She was admitted when she presented to the emergency room for evaluation of seizure activity consistent with status epilepticus Hospital Course Hospital Course: She was admitted for the management of, status epilepticus, urinary tract i nfection, C. difficile colitis, she had episode of persistent seizure, she has a history of seizure. She was manage initially with adjustment of the Keppra, the Keppra dose was increased to 1500 mg p.o. twice daily, but the drug level was supratherapeutic, this was changed to 1000 mg twice daily.Before this admission she was on Keppra and Vimpat, She was ultimately treated with Keppra and Vimpat she also had UTI due to Enterobacter cloaca, C. difficile enteritis. She was treated with p.o. vancomycin for the C. difficile, the plan is to transfer to longterm for rehabilitation because she is very deconditioned Physical Exam Vital Signs: Temp Pulse Resp BP Pulse Ox 97.9 F 97 16 133/58 H 99 11/24/18 11:37 11/24/18 13:59 11/24/18 11:37 11/24/18 11:37 11/24/18 11:37 Intake & Output 11/23/18 11/24/18 11/25/18 06:59 06:59 06:59 Intake Total 555 764 840 Balance 555 764 840 Weight 101.4 kg 101.6 kg General appearance: PRESENT: no acute distress Head exam: PRESENT: atraumatic, normocephalic Eye exam: PRESENT: PERRLA Mouth exam: PRESENT: moist Respiratory exam: PRESENT: clear to auscultation heidi Cardiovascular exam: PRESENT: RRR, +S1, +S2 GI/Abdominal exam: PRESENT: normal bowel sounds, soft Rectal exam: PRESENT: deferred Extremities exam: PRESENT: full ROM Neurological exam: PRESENT: alert, CN II-XII grossly intact Psychiatric exam: PRESENT: appropriate affect, normal mood Skin exam: PRESENT: dry, intact, warm Results Laboratory Results: 11/19/18 05:35 11/21/18 05:40 Impressions: Head CT 11/12/18 21:33 IMPRESSION: 1. No acute intracranial findings. 2. Senescent changes with chronic microvascular ischemia. Chest X-Ray 11/14/18 00:00 IMPRESSION: No evidence of acute intrathoracic disease. The tip of the left IJ central venous catheter terminates in the region of the superior vena cava. Qualifiers - * PATIENT BEING DISCHARGED WITH ANY OF THE FOLLOWING DIAGNOSIS: No VTE patient discharged on overlapping Therapy?: No Reason(s) for not prescribing Overlap Therapy:: Not indicated Stroke Pt being discharged on Anti-thrombolytic therapy?: No Reason(s) for not prescribing Anti-thrombolytic therapy:: Not indicated Stroke Pt being discharged on Anti-coagulation therapy?: No Reason(s) for not prescribing Anti-coagulation therapy:: Not indicated Stroke Pt being discharged on Statins?: No Reason(s) for not prescribing Statins therapy:: Not indicated SC Pt being discharged on Aspirin therapy?: No Reason(s) for not prescribing Aspirin therapy:: Not indicated SC Pt being discharged on Statins?: No Reason(s) for not prescribing Statin therapy:: Not indicated SC Pt discharged ACEI/ARBS?: No Reason(s) for not prescribing ACEI/ARBS:: Not indicated Acute Heart Failure - Is this a Heart Failure Patient?: No 3. Anticoagulant therapy for permanect/persistent/paraoxysmal Afib or Aflutter: N/A
[2018-11-24] MEDS: GABAPENTIN 100 MG CAPSULE PO SCH (21:13)
[2018-11-24] MEDS: ATORVASTATIN CALCIUM 40 MG TABLET PO SCH (21:14)
[2018-11-25] MEDS: LEVOTHYROXINE SODIUM 0.075 MG TABLET PO SCH (06:10)
[2018-11-25] MEDS: CHOLECALCIFEROL (D3) 1,000 UNIT (25 MCG) TABLET PO SCH (08:59)
[2018-11-25] MEDS: CINACALCET HCL 30 MG TABLET PO SCH ×2 (08:59→17:28)
[2018-11-25] MEDS: ASPIRIN 81 MG TABLET, ENT COATED PO SCH (09:00)
[2018-11-25] MEDS: AMLODIPINE BESYLATE 10 MG TABLET PO SCH (09:00)
[2018-11-25] MEDS: CIPROFLOXACIN HCL 500 MG TABLET PO SCH ×2 (09:00→21:40)
[2018-11-25] MEDS: LACTOBACILLUS ACIDOPHILUS 250 MG TAB PO SCH ×2 (09:00→17:28)
[2018-11-25] MEDS: LEVETIRACETAM 500 MG TABLET PO SCH ×2 (09:00→21:39)
[2018-11-25] MEDS: MAGNESIUM OXIDE 400 MG TABLET PO SCH (09:01)
[2018-11-25] MEDS: APIXABAN 5 MG TABLET PO SCH ×2 (09:01→17:28)
[2018-11-25] MEDS: ALLOPURINOL 100 MG TABLET PO SCH (09:01)
[2018-11-25] MEDS: LACOSAMIDE 100 MG TABLET PO SCH ×2 (09:01→21:41)
[2018-11-25] MEDS: ACETAMINOPHEN 325 MG TABLET PO PRN (13:55)
[2018-11-25] MEDS: FERROUS SULFATE 325 MG TABLET PO SCH (17:28)
[2018-11-25] MEDS: PANTOPRAZOLE SODIUM 40 MG TABLET.DR PO SCH (17:45)
[2018-11-25] MEDS: ATORVASTATIN CALCIUM 40 MG TABLET PO SCH (21:39)
[2018-11-25] MEDS: GABAPENTIN 100 MG CAPSULE PO SCH (21:39)
[2018-11-26] MEDS: LEVOTHYROXINE SODIUM 0.075 MG TABLET PO SCH (05:43)
[2018-11-26] MEDS: ALLOPURINOL 100 MG TABLET PO SCH (08:04)
[2018-11-26] MEDS: LACTOBACILLUS ACIDOPHILUS 250 MG TAB PO SCH ×2 (10:06→17:22)
[2018-11-26] MEDS: APIXABAN 5 MG TABLET PO SCH ×2 (10:06→17:23)
[2018-11-26] MEDS: CINACALCET HCL 30 MG TABLET PO SCH ×2 (10:06→17:22)
[2018-11-26] MEDS: CIPROFLOXACIN HCL 500 MG TABLET PO SCH ×2 (10:06→21:35)
[2018-11-26] MEDS: ASPIRIN 81 MG TABLET, ENT COATED PO SCH (10:07)
[2018-11-26] MEDS: LEVETIRACETAM 500 MG TABLET PO SCH ×2 (10:07→21:33)
[2018-11-26] MEDS: AMLODIPINE BESYLATE 10 MG TABLET PO SCH (10:07)
[2018-11-26] MEDS: CHOLECALCIFEROL (D3) 1,000 UNIT (25 MCG) TABLET PO SCH (10:07)
[2018-11-26] MEDS: LACOSAMIDE 100 MG TABLET PO SCH ×2 (10:07→21:39)
[2018-11-26] MEDS: MAGNESIUM OXIDE 400 MG TABLET PO SCH (10:07)
[2018-11-26] MEDS: FERROUS SULFATE 325 MG TABLET PO SCH (17:23)
[2018-11-26] MEDS: PANTOPRAZOLE SODIUM 40 MG TABLET.DR PO SCH (17:23)
[2018-11-26] MEDS: ACETAMINOPHEN 325 MG TABLET PO PRN (20:03)
[2018-11-26] MEDS: GABAPENTIN 100 MG CAPSULE PO SCH (21:33)
[2018-11-26] MEDS: ATORVASTATIN CALCIUM 40 MG TABLET PO SCH (21:33)
[2018-11-27] MEDS: LEVOTHYROXINE SODIUM 0.075 MG TABLET PO SCH (05:42)
[2018-11-27] MEDS: ALLOPURINOL 100 MG TABLET PO SCH (08:28)
[2018-11-27] MEDS: MAGNESIUM OXIDE 400 MG TABLET PO SCH (09:51)
[2018-11-27] MEDS: APIXABAN 5 MG TABLET PO SCH ×2 (09:51→17:36)
[2018-11-27] MEDS: CIPROFLOXACIN HCL 500 MG TABLET PO SCH ×2 (09:51→21:10)
[2018-11-27] MEDS: LEVETIRACETAM 500 MG TABLET PO SCH ×2 (09:51→21:10)
[2018-11-27] MEDS: AMLODIPINE BESYLATE 10 MG TABLET PO SCH (09:51)
[2018-11-27] MEDS: LACTOBACILLUS ACIDOPHILUS 250 MG TAB PO SCH ×2 (09:51→17:36)
[2018-11-27] MEDS: ASPIRIN 81 MG TABLET, ENT COATED PO SCH (09:51)
[2018-11-27] MEDS: CINACALCET HCL 30 MG TABLET PO SCH ×2 (09:51→17:36)
[2018-11-27] MEDS: CHOLECALCIFEROL (D3) 1,000 UNIT (25 MCG) TABLET PO SCH (09:51)
[2018-11-27] MEDS: LACOSAMIDE 100 MG TABLET PO SCH ×2 (09:51→21:10)
[2018-11-27] MEDS: PANTOPRAZOLE SODIUM 40 MG TABLET.DR PO SCH (17:36)
[2018-11-27] MEDS: ACETAMINOPHEN 325 MG TABLET PO PRN (17:36)
[2018-11-27] MEDS: FERROUS SULFATE 325 MG TABLET PO SCH (17:36)
[2018-11-27] MEDS: GABAPENTIN 100 MG CAPSULE PO SCH (21:10)
[2018-11-27] MEDS: ATORVASTATIN CALCIUM 40 MG TABLET PO SCH (21:10)
[2018-11-28] MEDS: ACETAMINOPHEN 325 MG TABLET PO PRN (01:47)
[2018-11-28] MEDS: LEVOTHYROXINE SODIUM 0.075 MG TABLET PO SCH (05:44)
[2018-11-28] MEDS: LACOSAMIDE 100 MG TABLET PO SCH (09:28)
[2018-11-28] MEDS: AMLODIPINE BESYLATE 10 MG TABLET PO SCH (09:28)
[2018-11-28] MEDS: LEVETIRACETAM 500 MG TABLET PO SCH (09:28)
[2018-11-28] MEDS: CIPROFLOXACIN HCL 500 MG TABLET PO SCH (09:28)
[2018-11-28] MEDS: LACTOBACILLUS ACIDOPHILUS 250 MG TAB PO SCH ×2 (09:28→17:07)
[2018-11-28] MEDS: MAGNESIUM OXIDE 400 MG TABLET PO SCH (09:29)
[2018-11-28] MEDS: ASPIRIN 81 MG TABLET, ENT COATED PO SCH (09:29)
[2018-11-28] MEDS: CINACALCET HCL 30 MG TABLET PO SCH ×2 (09:29→17:07)
[2018-11-28] MEDS: CHOLECALCIFEROL (D3) 1,000 UNIT (25 MCG) TABLET PO SCH (09:29)
[2018-11-28] MEDS: ALLOPURINOL 100 MG TABLET PO SCH (09:29)
[2018-11-28] MEDS: APIXABAN 5 MG TABLET PO SCH ×2 (09:29→17:07)
[2018-11-28 15:56] VITALS: BP 118/51
[2018-11-28] MEDS: FERROUS SULFATE 325 MG TABLET PO SCH (17:07)
[2018-11-28] MEDS: PANTOPRAZOLE SODIUM 40 MG TABLET.DR PO SCH (17:07)
== END 2018-11-28 18:01 | DRG 101 ==
LOC: ER 21:16 → EH 11-13 05:13 → 3W 11-13 06:45 → 3N 11-25 16:57
PROVIDERS: ADMIT Internal Medicine Geriatric Medicine; ATTEND Internal Medicine
PROC: 02HV33Z Insertion of Infusion Device into Superior Vena Cava, Percutaneous Approach (ICD-10-PCS; principal; 2018-11-14)
DX: G40.101 Localization-related (focal) (partial) symptomatic epilepsy and epileptic syndromes with simple partial seizures, not intractable, with status epilepticus (principal); A04.72 Enterocolitis due to Clostridium difficile, not specified as recurrent; N39.0 Urinary tract infection, site not specified; N18.3 Chronic kidney disease, stage 3 (moderate); E83.42 Hypomagnesemia; I12.9 Hypertensive chronic kidney disease with stage 1 through stage 4 chronic kidney disease, or unspecified chronic kidney disease; E03.9 Hypothyroidism, unspecified; E78.5 Hyperlipidemia, unspecified; B96.1 Klebsiella pneumoniae [K. pneumoniae] as the cause of diseases classified elsewhere; B96.89 Other specified bacterial agents as the cause of diseases classified elsewhere; Z86.718 Personal history of other venous thrombosis and embolism; Z86.73 Personal history of transient ischemic attack (TIA), and cerebral infarction without residual deficits; Z79.01 Long term (current) use of anticoagulants; Z79.82 Long term (current) use of aspirin; Z79.1 Long term (current) use of non-steroidal anti-inflammatories (NSAID); Z79.899 Other long term (current) drug therapy
CPT/HCPCS: 36415; 70450; 71045; 80048; 80053; 80177; 80307; 81001; 82962; 83735; 85025; 87040; 87086; 87088; 87186; 87493; 96365; 96366; 96368; 96375; 99285; C1751; J0696; J1642; J1953; J2060; J3370; J3475; J3490; J7030; J7060

== ENCOUNTER 2018-12-02 14:51 | Observation (INO) | payer MEDICARE, MEDICAID ==
--- NOTE | 2018-12-02 16:11 | ER Document Report ---
ED General - General Chief Complaint: Doesn't Feel Right Stated Complaint: ELEVATED HEART RATE Time Seen by Provider: 12/02/18 15:37 TRAVEL OUTSIDE OF THE [place] IN LAST 30 DAYS: No - HPI Notes: 78-year-old female to the emergency department with family from SNF with complaints of tachycardia and not feeling well for the past week. Patient states that she was placed in SNF after she was hospitalized beginning of November for a UTI, low magnesium, and C. difficile. She was placed on vancomycin and discharged for rehab. She states that she completed the vancomycin and she started to have diarrhea again this past week. She states that she has not had a fever. She has not been coughing. She states that she has had bilateral leg cramping. 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 She is supposed to be taking Eliquis. She is not sure if she has been getting the Eliquis in the SNF. She denies any chest pain, shortness of breath. She does admit to generalized malaise. She does have a history of a seizure disorder and her family reports that the been seeing more focalized tremors as of late particularly to her face and hands. She takes Keppra and Vimpat. - Related Data Allergies/Adverse Reactions: steriods Allergy (Uncoded 08/10/18 12:33) steroids Adverse Reaction (Intermediate, Uncoded 08/10/18 12:33) Past Medical History - General Information source: Patient - Social History Smoking Status: Never Smoker Frequency of alcohol use: None Drug Abuse: None Family History: Reviewed & Not Pertinent Patient has suicidal ideation: No Patient has homicidal ideation: No - Past Medical History Cardiac Medical History: Reports: Hx Hypercholesterolemia, Hx Hypertension, Hx Pulmonary Embolism - 2 blood clots in her lungs a few years ago Denies: Hx Atrial Fibrillation, Hx Congestive Heart Failure, Hx Heart Attack Pulmonary Medical History: Reports: Hx Bronchitis Denies: Hx Asthma, Hx COPD, Hx Pneumonia, Hx Tuberculosis Neurological Medical History: Reports: Hx Cerebrovascular Accident - About a year ago.. Denies: Hx Seizures Endocrine Medical History: Reports: Hx Hypothyroidism Renal/ Medical History: Reports: Hx Renal Insufficiency. Denies: Hx End Stage Renal Disease, Hx Peritoneal Dialysis Malignancy Medical History: Denies: Hx Leukemia, Hx Lung Cancer GI Medical History: Denies: Hx Hepatitis, Hx Hiatal Hernia, Hx Ulcer Musculoskeletal Medical History: Reports Hx Arthritis, Denies Hx Fibromyalgia, Reports Hx Gout Psychiatric Medical History: Reports: Hx Depression Infectious Medical History: Denies: Hx Hepatitis, Hx HIV Past Surgical History: Reports: Hx Orthopedic Surgery - R knee replacement. Denies: Hx Appendectomy, Hx Section, Hx Cholecystectomy, Hx Coronary Artery Bypass Graft, Hx Gastric Bypass Surgery, Hx Herniorrhaphy, Hx Hysterectomy, Hx Mastectomy, Hx Open Heart Surgery, Hx Pacemaker, Hx Tonsillectomy, Hx Tubal Ligation - Immunizations Hx Diphtheria, Pertussis, Tetanus Vaccination: Yes - <5 years Hx Pneumococcal Vaccination: 04/12/08 Review of Systems - Review of Systems Constitutional: denies: Chills, Diaphoresis, Fever EENT: No symptoms reported Cardiovascular: denies: Chest pain, Palpitations, Heart racing, Syncope, Dizziness, Lightheaded Respiratory: denies: Cough, Short of breath Gastrointestinal: denies: Abdominal pain, Diarrhea, Nausea, Vomiting Genitourinary: No symptoms reported Musculoskeletal: See HPI, Other - Bilateral leg pain Skin: No symptoms reported Hematologic/Lymphatic: No symptoms reported Neurological/Psychological: No symptoms reported -: Yes All other systems reviewed and negative Physical Exam - Vital signs Vitals: Resp BP 13 132/70 H 12/02/18 15:02 12/02/18 15:02 Interpretation: Tachycardic - General General appearance: Appears well, Alert In distress: None - HEENT Head: Normocephalic, Atraumatic Eyes: Normal Pupils: PERRL - Respiratory Respiratory status: No respiratory distress Chest status: Nontender Breath sounds: Normal Chest palpation: Normal - Cardiovascular Rhythm: Regular Heart sounds: Normal auscultation Murmur: No - Abdominal Inspection: Normal Distension: No distension Bowel sounds: Normal Tenderness: Nontender Organomegaly: No organomegaly - Back Back: Normal, Nontender - Extremities General upper extremity: Normal inspection, Nontender, Normal color, Normal ROM, Normal temperature General lower extremity: Normal inspection, Tender - Mild tenderness to palpation of her bilateral lower extremities without any edema. Negative Homans sign. No erythema, no warmth no rash, Normal color, Normal ROM, Normal temperature, Normal weight bearing. No: Portillo's sign - Neurological Neuro grossly intact: Yes Cognition: Normal Orientation: AAOx4 [place] Coma Scale Eye Opening: Spontaneous [place] Coma Scale Verbal: Oriented [place] Coma Scale Motor: Obeys Commands Shahid Coma Scale Total: 15 Speech: Normal Motor strength normal: LUE, RUE, LLE, RLE Sensory: Normal - Psychological Associated symptoms: Normal affect, Normal mood - Skin Skin Temperature: Warm Skin Moisture: Dry Skin Color: Normal Course - Re-evaluation Re-evalutation: 12/02/[address] Oliveira, ER attending. She agrees that patient should be admitted to Dr. Mcarthur service. She would like to have a repeat EKG prior to admission. Of note since magnesium has been started patient's heart rate has improved significantly. Initially was running in the 150s to 120s and after starting magnesium patient has a heart rate of 99-101. Noted improved EKG in comparison to initial. Discussed patient with Dr. Mcarthur. He is aware patient's magnesium and her improving tachycardia since starting magnesium. He agrees with plan for admission. He would like for the patient to go to the [facility]. Impression: Hypomagnesia and sinus tachycardia. Suspect that her electrolyte derailment is contributing to her tachycardia. Have admitted her to Dr. Mcarthur service for further management of the low magnesium and for further observation for any tachyarrhythmias that might arise. Patient agrees with the plan. - Vital Signs Vital signs: Temp Pulse Resp BP Pulse Ox 98.8 F 96 13 116/66 12/02/18 19:39 12/02/18 19:39 12/02/18 19:39 12/02/18 19:39 - Laboratory Result Diagrams: 12/02/18 16:29 12/02/18 16:29 Laboratory results interpreted by me: 12/02/18 12/02/18 12/02/18 16:29 16:29 16:29 RBC 3.59 L Hgb 10.3 L Hct 32.0 L RDW 21.1 H PT 19.7 H APTT 45.8 H Carbon Dioxide 21 L Est GFR ( Amer) 50 L Est GFR (MDRD) Non-Af 42 L Magnesium 0.7 L* Albumin 3.3 L - Diagnostic Test Radiology reviewed: Image reviewed, Reports reviewed - EKG Interpretation by Me EKG shows normal: Sinus rhythm Rate: Tachycardia When compared to previous EKG there are: No significant change Additional EKG results interpreted by me: 12/02/18 No STEMI. Diffuse T wave abnormalities. QTc is 390. Repeat EKG shows improvement rate of 98 in sinus rhythm with borderline T wave abnormalities in inferior and lateral leads. QTC is 440. Discharge - Discharge Clinical Impression: Hypomagnesemia, Tachycardia, Bilateral leg pain Condition: Stable Disposition: ADMITTED INPATIENT Admitting Provider: [facility] Admitted: [facility]
--- NOTE | 2018-12-02 16:29 | RADIOLOGY REPORT (SQ) ---
EXAM DESCRIPTION: CHEST SINGLE VIEW COMPLETED DATE/TIME: 12/02/2018 4:21 pm REASON FOR STUDY: tachycardia COMPARISON: 11/14/2018 NUMBER OF VIEWS: One view. TECHNIQUE: Single frontal radiographic view of the chest acquired. LIMITATIONS: None. FINDINGS: LUNGS AND PLEURA: No opacities, masses or pneumothorax. No pleural effusion. MEDIASTINUM AND HILAR STRUCTURES: Fullness along the upper right mediastinal border is unchanged and most likely represents great vessel. HEART AND VASCULAR STRUCTURES: Heart normal in size. Normal vasculature. BONES: No acute findings. HARDWARE: None in the chest. OTHER: No other significant finding. IMPRESSION: NO SIGNIFICANT RADIOGRAPHIC FINDING IN THE CHEST. TECHNICAL DOCUMENTATION: JOB ID: [id number] [employer]- All Rights Reserved Reading location - IP/workstation name: [email or web address]
[2018-12-02 16:54] LABS: ABSOLUTE BASOPHILS # (AUTO) 0.1 10^3/uL (0.0-0.2); ABSOLUTE EOSINOPHILS # (AUTO) 0.1 10^3/uL (0.0-0.6); ABSOLUTE LYMPHOCYTES (AUTO) 0.9 10^3/uL (0.5-4.7); ABSOLUTE MONOCYTES (AUTO) 0.6 10^3/uL (0.1-1.4); ABSOLUTE NEUT (AUTO) 4.5 10^3/uL (1.7-8.2); BASOPHILS % (AUTO) 1.2 % (0-2); EOSINOPHILS % (AUTO) 1.7 % (0-6); HEMOGLOBIN 10.3 g/dL (12.0-15.5); LYMPHOCYTES % (AUTO) 14.1 % (13-45); MEAN CORPUSCULAR HEMOGLOBIN 28.8 pg (27.0-33.4); MEAN CORPUSCULAR HGB CONC 32.3 g/dL (32.0-36.0); MEAN CORPUSCULAR VOLUME 89 fl (80-97); MONOCYTES % (AUTO) 9.7 % (3-13); PLATELET COUNT 386 10^3/uL (150-450); RED BLOOD COUNT 3.59 10^6/uL (3.72-5.28); RED CELL DISTRIBUTION WIDTH 21.1 % (11.5-14.0); SEGMENTED NEUTROPHILS % (AUTO) 73.3 % (42-78); TOTAL CELLS COUNTED % (AUTO) 100 %; WHITE BLOOD COUNT 6.1 10^3/uL (4.0-10.5)
[2018-12-02 17:02] LABS: ALBUMIN 3.3 g/dL (3.5-5.0); ALKALINE PHOSPHATASE 73 U/L (38-126); ANION GAP 11 (5-19); ASPARTATE AMINO TRANSFERASE 18 U/L (14-36); BILIRUBIN,DIRECT 0.2 mg/dL (0.0-0.4); BILIRUBIN,TOTAL 0.5 mg/dL (0.2-1.3); BLOOD UREA NITROGEN 12 mg/dL (7-20); CALCIUM 8.4 mg/dL (8.4-10.2); CARBON DIOXIDE 21 mmol/L (22-30); CHLORIDE 105 mmol/L (98-107); GLUCOSE 90 mg/dL (75-110); POTASSIUM 4.5 mmol/L (3.6-5.0); TOTAL PROTEIN 6.4 g/dL (6.3-8.2)
[2018-12-02 17:09] LABS: INTERNATIONAL RATION (INR) 1.65; PROTHROMBIN TIME 19.7 SEC (11.4-15.4)
[2018-12-02 17:10] LABS: PARTIAL THROMBOPLASTIN TIME 45.8 SEC (23.5-35.8)
[2018-12-02] MEDS ORDERED: ACETAMINOPHEN 325 MG TABLET PO ONE (17:15)
[2018-12-02] MEDS: MAGNESIUM SULFATE/D5W 1 GM/100 ML RTUPB IV SCH ×4 (18:44→22:16)
--- NOTE | 2018-12-02 23:17 | RADIOLOGY REPORT (SQ) ---
EXAM DESCRIPTION: Bilateral lower extremity venous duplex December 02, 2018 CLINICAL HISTORY: 78 years, Female, bilateral LE pain, tachycardia, eval dvt COMPARISON: None TECHNIQUE: Utilizing a linear array transducer, real-time ultrasound evaluation of the bilateral lower extremity was performed. Color Doppler imaging was used to assess vascular flow. FINDINGS: The right common femoral and proximal/mid/distal superficial femoral veins are normal in caliber and compressibility. There is normal directional flow. The right popliteal vein is normal in appearance. There is normal directional flow and normal compressibility. The left common femoral and proximal/mid/distal superficial femoral veins are normal in caliber and compressibility. There is normal directional flow. The left popliteal vein is normal in appearance. There is normal directional flow and normal compressibility. No abnormal soft tissue masses or significant edema is identified. IMPRESSION: No evidence of bilateral lower extremity deep venous thrombosis.]
[2018-12-03] MEDS: MAGNESIUM SULFATE/D5W 1 GM/100 ML RTUPB IV SCH (05:15)
[2018-12-03 05:35] LABS: APPEARANCE,URINE CLOUDY; BILIRUBIN,URINE NEGATIVE (NEGATIVE); COLOR,URINE YELLOW; GLUCOSE, URINE NEGATIVE (NEGATIVE); KETONES,URINE NEGATIVE (NEGATIVE); LEUKOCYTE ESTERASE,URINE SMALL (NEGATIVE); NITRITE,URINE NEGATIVE (NEGATIVE); PROTEIN,URINE NEGATIVE (NEGATIVE); URINE SPECIFIC GRAVITY 1.016; UROBILINOGEN,URINE NEGATIVE mg/dL (<2.0)
[2018-12-03 05:52] LABS: ALBUMIN 2.8 g/dL (3.5-5.0); ALKALINE PHOSPHATASE 70 U/L (38-126); ANION GAP 10 (5-19); ASPARTATE AMINO TRANSFERASE 17 U/L (14-36); BILIRUBIN,DIRECT 0.3 mg/dL (0.0-0.4); BILIRUBIN,TOTAL 0.4 mg/dL (0.2-1.3); BLOOD UREA NITROGEN 13 mg/dL (7-20); CALCIUM 8.3 mg/dL (8.4-10.2); CARBON DIOXIDE 20 mmol/L (22-30); CHLORIDE 107 mmol/L (98-107); GLUCOSE 91 mg/dL (75-110); POTASSIUM 4.1 mmol/L (3.6-5.0); TOTAL PROTEIN 5.8 g/dL (6.3-8.2)
--- NOTE | 2018-12-03 16:09 | PDOC H&P ---
History of Present Illness Admission Date/PCP: 12/02/18 20:09 MARY RASHID MD History of Present Illness: IVY CLAIRE is a 78 year old female, she is presently in rehabilitation u ndergoing physical therapy, she was transferred from [facility] to the emergency room for evaluation of palpitation, she was found to have severe hypomagnesemia with sinus tachycardia. She has a history of epilepsy on antiepileptic drugs, she was in the emergency room and evaluated by the ED physician they felt patient needed to be admitted to have the magnesium corrected before discharge back to [facility] for continuity of care for the physical therapy Past Medical History Cardiac Medical History: Reports: Hyperlipidema, Hypertension, Pulmonary Embolism - 2 blood clots in her lungs a few years ago Pulmonary Medical History: Reports: Bronchitis Endocrine Medical History: Reports: Hypothyroidism Musculoskeltal Medical History: Reports: Arthritis, Gout Psychiatric Medical History: Reports: Depression Hematology: Reports: Anemia Past Surgical History Past Surgical History: Reports: Orthopedic Surgery - R knee replacement Social History Smoking Status: Never Smoker Frequency of Alcohol Use: None Hx Recreational Drug Use: No Drugs: None Hx Prescription Drug Abuse: No - Advance Directive Resuscitation Status: Full Code Family History Family History: Reviewed & Not Pertinent Parental Family History Reviewed: Yes Children Family History Reviewed: Yes Sibling(s) Family History Reviewed.: Yes Medication/Allergy Home Medications: Allopurinol [Zyloprim 100 mg Tablet] 100 mg PO QAM 08/10/18 Ferrous Sulfate [Feosol 325 mg Tablet] 325 mg PO QHS 08/10/18 Levothyroxine Sodium [Synthroid 0.075 mg Tablet] 0.075 mg PO Q6AM 08/10/18 Amlodipine Besylate [Norvasc 10 mg Tablet] 10 mg PO DAILY 11/13/18 Apixaban [Eliquis 5 mg Tablet] 5 mg PO BID 11/13/18 Aspirin [Ecotrin 81 mg EC Tablet] 81 mg PO DAILY 11/13/18 Atorvastatin Calcium [Lipitor 40 mg Tablet] 40 mg PO QHS 11/13/18 Cholecalciferol (Vitamin D3) [Vitamin D3 1000 Unit Tablet] 1,000 unit PO DAILY 11/13/18 Cinacalcet HCl [Sensipar 30 mg Tablet] 30 mg PO BID 11/13/18 Gabapentin [Neurontin 100 mg Capsule] 200 mg PO QHS 11/13/18 Lacosamide [Vimpat 50 mg Tablet] 100 mg PO Q12 11/13/18 Lubiprostone [Amitiza 24 Mcg Capsule] 24 mcg PO Q12 11/13/18 Acetaminophen [Tylenol 325 mg Tablet] 650 mg PO Q6HP PRN tablet 11/24/18 Lactobacillus Acidophilus [Bacid 250 mg Tablet] 500 mg PO BID tab 11/24/18 Levetiracetam [Keppra 500 mg Tablet] 1,000 mg PO Q12 tablet 11/24/18 Allergies/Adverse Reactions: steriods Allergy (Uncoded 08/10/18 12:33) steroids Adverse Reaction (Intermediate, Uncoded 08/10/18 12:33) Review of Systems Constitutional: ABSENT: chills, fever(s), headache(s), weight gain, weight loss Eyes: ABSENT: visual disturbances Ears: ABSENT: hearing changes Cardiovascular: PRESENT: palpitations. ABSENT: chest pain, dyspnea on exertion, edema, orthropnea Respiratory: ABSENT: cough, hemoptysis Gastrointestinal: ABSENT: abdominal pain, constipation, diarrhea, hematemesis, hematochezia, nausea, vomiting Genitourinary: ABSENT: dysuria, hematuria Musculoskeletal: ABSENT: joint swelling Integumentary: ABSENT: rash, wounds Neurological: ABSENT: abnormal gait, abnormal speech, confusion, dizziness, focal weakness, syncope Psychiatric: ABSENT: anxiety, depression, homidical ideation, suicidal ideation Endocrine: ABSENT: cold intolerance, heat intolerance, menstrual abnormalities, polydipsia, polyuria Hematologic/Lymphatic: ABSENT: easy bleeding, easy bruising, lymphadenopathy Physical Exam Vital Signs: Temp Pulse Resp BP Pulse Ox 98.2 F 103 H 16 114/56 L 99 12/03/18 13:15 12/03/18 14:00 12/03/18 13:15 12/03/18 13:15 12/03/18 13:15 Intake & Output 12/02/18 12/03/18 12/04/18 06:59 06:59 06:59 Intake Total 400 Balance 400 Weight 95.9 kg General appearance: PRESENT: no acute distress, well-developed, well-nourished Head exam: PRESENT: atraumatic, normocephalic Eye exam: PRESENT: conjunctiva pink, EOMI, PERRLA Ear exam: PRESENT: normal external ear exam Mouth exam: PRESENT: moist, tongue midline Neck exam: PRESENT: full ROM Respiratory exam: PRESENT: clear to auscultation heidi Cardiovascular exam: PRESENT: RRR, +S1, +S2 Pulses: PRESENT: normal dorsalis pedis pul, +2 pedal pulses bilateral Vascular exam: PRESENT: normal capillary refill GI/Abdominal exam: PRESENT: normal bowel sounds, soft Rectal exam: PRESENT: deferred Neurological exam: PRESENT: alert, CN II-XII grossly intact. ABSENT: motor sensory deficit Psychiatric exam: PRESENT: appropriate affect, normal mood Skin exam: PRESENT: dry, intact, warm. ABSENT: cyanosis, rash Results Laboratory Results: 12/02/18 16:29 12/03/18 04:48 12/02/18 12/02/18 12/02/18 16:29 16:29 16:29 WBC 6.1 RBC 3.59 L Hgb 10.3 L Hct 32.0 L MCV 89 MCH 28.8 MCHC 32.3 RDW 21.1 H Plt Count 386 Seg Neutrophils % 73.3 Sodium 137.4 Potassium 4.5 Chloride 105 Carbon Dioxide 21 L Anion Gap 11 BUN 12 Creatinine 1.25 Est GFR ( Amer) 50 L Glucose 90 Calcium 8.4 Magnesium 0.7 L* Total Bilirubin 0.5 AST 18 Alkaline Phosphatase 73 Total Protein 6.4 Albumin 3.3 L TSH 2.23 Urine Color Urine Appearance Urine pH Ur Specific [place] Urine Protein Urine Glucose (UA) Urine Ketones Urine Blood Urine Nitrite Ur Leukocyte Esterase Urine WBC (Auto) Urine RBC (Auto) 12/03/18 12/03/18 04:48 05:05 WBC RBC Hgb Hct MCV MCH MCHC RDW Plt Count Seg Neutrophils % Sodium 137.3 Potassium 4.1 Chloride 107 Carbon Dioxide 20 L Anion Gap 10 BUN 13 Creatinine 1.18 Est GFR ( Amer) 54 L Glucose 91 Calcium 8.3 L Magnesium 1.9 D Total Bilirubin 0.4 AST 17 Alkaline Phosphatase 70 Total Protein 5.8 L Albumin 2.8 L TSH Urine Color YELLOW Urine Appearance CLOUDY Urine pH 5.0 Ur Specific [place] 1.016 Urine Protein NEGATIVE Urine Glucose (UA) NEGATIVE Urine Ketones NEGATIVE Urine Blood MODERATE H Urine Nitrite NEGATIVE Ur Leukocyte Esterase SMALL H Urine WBC (Auto) 17 Urine RBC (Auto) 11 12/02/18 16:29 Troponin I < 0.012 Impressions: Chest X-Ray 12/02/18 15:40 IMPRESSION: NO SIGNIFICANT RADIOGRAPHIC FINDING IN THE CHEST. Venous Doppler Study 12/02/18 16:10 IMPRESSION: No evidence of bilateral lower extremity deep venous thrombosis.] Assessment & Plan - Diagnosis (1) Hypomagnesemia Is this a current diagnosis for this admission?: Yes Plan: She was admitted for observation and for IV therapy with magnesium and she will continue present line of management (2) Sinus tachycardia Is this a current diagnosis for this admission?: Yes
[2018-12-03] MEDS: CINACALCET HCL 30 MG TABLET PO SCH (17:20)
[2018-12-03] MEDS: LACTOBACILLUS ACIDOPHILUS 250 MG TAB PO SCH (17:20)
[2018-12-03] MEDS: ALLOPURINOL 100 MG TABLET PO SCH (17:21)
[2018-12-03] MEDS: APIXABAN 5 MG TABLET PO SCH (17:21)
[2018-12-03] MEDS: LEVOTHYROXINE SODIUM 0.075 MG TABLET PO SCH (17:21)
[2018-12-03] MEDS: ASPIRIN 81 MG TABLET, ENT COATED PO SCH (17:21)
[2018-12-03] MEDS: CHOLECALCIFEROL (D3) 1,000 UNIT (25 MCG) TABLET PO SCH (17:21)
[2018-12-03] MEDS: AMLODIPINE BESYLATE 10 MG TABLET PO SCH (17:21)
[2018-12-03] MEDS ORDERED: ONDANSETRON 4 MG TAB.RAPDIS PO PRN (17:54)
[2018-12-03] MEDS: VANCOMYCIN HCL INJ 500 MG VIAL PO SCH (18:31)
--- NOTE | 2018-12-03 19:12 | EKG REPORT ---
SEVERITY:- BORDERLINE ECG - SINUS RHYTHM BORDERLINE T WAVE ABNORMALITIES : Confirmed by: Geni Alexander MD 03-Dec-2018 19:11:40
[2018-12-03] MEDS: GABAPENTIN 100 MG CAPSULE PO SCH (22:24)
[2018-12-03] MEDS: FERROUS SULFATE 325 MG TABLET PO SCH (22:24)
[2018-12-03] MEDS: LEVETIRACETAM 500 MG TABLET PO SCH (22:24)
[2018-12-03] MEDS: LACOSAMIDE 50 MG TABLET PO SCH (22:24)
[2018-12-03] MEDS: ATORVASTATIN CALCIUM 40 MG TABLET PO SCH (22:24)
[2018-12-03] MEDS: LUBIPROSTONE 24 MCG CAPSULE PO SCH (22:25)
[2018-12-04] MEDS: VANCOMYCIN HCL INJ 500 MG VIAL PO SCH ×4 (00:35→17:13)
[2018-12-04] MEDS: ACETAMINOPHEN 325 MG TABLET PO PRN ×2 (03:15→14:03)
[2018-12-04] MEDS: LEVOTHYROXINE SODIUM 0.075 MG TABLET PO SCH (05:45)
[2018-12-04] MEDS: ALLOPURINOL 100 MG TABLET PO SCH (08:37)
[2018-12-04] MEDS: LUBIPROSTONE 24 MCG CAPSULE PO SCH ×2 (09:59→21:06)
[2018-12-04] MEDS: AMLODIPINE BESYLATE 10 MG TABLET PO SCH (10:14)
[2018-12-04] MEDS: LACTOBACILLUS ACIDOPHILUS 250 MG TAB PO SCH ×2 (10:14→17:14)
[2018-12-04] MEDS: ASPIRIN 81 MG TABLET, ENT COATED PO SCH (10:15)
[2018-12-04] MEDS: CHOLECALCIFEROL (D3) 1,000 UNIT (25 MCG) TABLET PO SCH (10:15)
[2018-12-04] MEDS: LACOSAMIDE 50 MG TABLET PO SCH ×2 (10:15→21:06)
[2018-12-04] MEDS: CINACALCET HCL 30 MG TABLET PO SCH ×2 (10:15→17:14)
[2018-12-04] MEDS: APIXABAN 5 MG TABLET PO SCH ×2 (10:15→17:14)
[2018-12-04] MEDS: LEVETIRACETAM 500 MG TABLET PO SCH ×2 (10:18→21:06)
--- NOTE | 2018-12-04 14:34 | PDOC PROGRESS REPORT ---
Subjective Progress Note for:: 12/04/18 Subjective:: She was admitted for the management of hypomagnesemia, she also has diarrhea due to C. difficile colitis. She also complains of dermatitis Reason For Visit: SINUS TACHYCARDIA, HYPOMAGNESMIA Physical Exam Vital Signs: Temp Pulse Resp BP Pulse Ox 98.0 F 92 16 123/60 94 12/04/18 12:15 12/04/18 12:15 12/04/18 12:15 12/04/18 12:15 12/04/18 12:15 Intake & Output 12/03/18 12/04/18 12/05/18 06:59 06:59 06:59 Intake Total 400 888 444 Balance 400 888 444 Weight 95.9 kg 95.7 kg General appearance: PRESENT: no acute distress Eye exam: PRESENT: PERRLA Respiratory exam: PRESENT: clear to auscultation heidi Cardiovascular exam: PRESENT: +S1, +S2 GI/Abdominal exam: PRESENT: soft Results Laboratory Results: 12/02/18 16:29 12/03/18 04:48 12/04/18 04:51 Magnesium 1.4 L 12/02/18 16:29 Troponin I < 0.012 Impressions: Chest X-Ray 12/02/18 15:40 IMPRESSION: NO SIGNIFICANT RADIOGRAPHIC FINDING IN THE CHEST. Venous Doppler Study 12/02/18 16:10 IMPRESSION: No evidence of bilateral lower extremity deep venous thrombosis.] Assessment & Plan - Diagnosis (1) Hypomagnesemia Is this a current diagnosis for this admission?: Yes (2) Sinus tachycardia Is this a current diagnosis for this admission?: Yes (3) Clostridium difficile diarrhea Is this a current diagnosis for this admission?: Yes Plan: Start p.o. vancomycin (4) Dermatitis Is this a current diagnosis for this admission?: Yes Plan: Start clobetasol
[2018-12-04] MEDS: MAGNESIUM SULFATE/D5W 1 GM/100 ML RTUPB IV SCH ×2 (15:03→18:25)
[2018-12-04] MEDS: CLOBETASOL PROPIONATE 0.05% CREAM 15 GM TP SCH (17:13)
[2018-12-04] MEDS: GABAPENTIN 100 MG CAPSULE PO SCH (21:06)
[2018-12-04] MEDS: FERROUS SULFATE 325 MG TABLET PO SCH (21:06)
[2018-12-04] MEDS: ATORVASTATIN CALCIUM 40 MG TABLET PO SCH (21:06)
[2018-12-05] MEDS: VANCOMYCIN HCL INJ 500 MG VIAL PO SCH ×4 (00:04→18:35)
[2018-12-05] MEDS: ACETAMINOPHEN 325 MG TABLET PO PRN ×3 (06:11→20:05)
[2018-12-05] MEDS: LEVOTHYROXINE SODIUM 0.075 MG TABLET PO SCH (06:11)
[2018-12-05] MEDS: CHOLECALCIFEROL (D3) 1,000 UNIT (25 MCG) TABLET PO SCH (10:16)
[2018-12-05] MEDS: CINACALCET HCL 30 MG TABLET PO SCH ×2 (10:16→18:35)
[2018-12-05] MEDS: LEVETIRACETAM 500 MG TABLET PO SCH ×2 (10:16→21:03)
[2018-12-05] MEDS: ALLOPURINOL 100 MG TABLET PO SCH (10:16)
[2018-12-05] MEDS: AMLODIPINE BESYLATE 10 MG TABLET PO SCH (10:16)
[2018-12-05] MEDS: LACTOBACILLUS ACIDOPHILUS 250 MG TAB PO SCH ×2 (10:16→18:35)
[2018-12-05] MEDS: APIXABAN 5 MG TABLET PO SCH ×2 (10:16→18:35)
[2018-12-05] MEDS: ASPIRIN 81 MG TABLET, ENT COATED PO SCH (10:16)
[2018-12-05] MEDS: LACOSAMIDE 50 MG TABLET PO SCH ×2 (10:16→21:03)
[2018-12-05] MEDS: LUBIPROSTONE 24 MCG CAPSULE PO SCH ×2 (10:17→21:04)
[2018-12-05] MEDS: CLOBETASOL PROPIONATE 0.05% CREAM 15 GM TP SCH (10:17)
[2018-12-05] MEDS ORDERED: MAGNESIUM SULFATE/D5W 1 GM/100 ML RTUPB IV ONE (14:00)
--- NOTE | 2018-12-05 19:45 | PDOC TRANSFER SUMMARY ---
General - Admit/Disc Date/PCP Admission Date/Primary Care Provider: 12/02/18 20:09 MARY RASHID MD Discharge Date: 12/06/18 - Discharge Diagnosis (1) Hypomagnesemia Is this a current diagnosis for this admission?: Yes (2) Sinus tachycardia Is this a current diagnosis for this admission?: Yes (3) Clostridium difficile diarrhea Is this a current diagnosis for this admission?: Yes (4) Dermatitis Is this a current diagnosis for this admission?: Yes - Additional Information Resuscitation Status: Full Code Prescriptions: Magnesium Oxide 400 mg PO DAILY #120 tablet Vancomycin HCl [Vancocin Inj 500 mg Vial] 250 mg PO Q6 #40 vial Home Medications: Allopurinol [Zyloprim 100 mg Tablet] 100 mg PO QAM 08/10/18 Ferrous Sulfate [Feosol 325 mg Tablet] 325 mg PO QHS 08/10/18 Levothyroxine Sodium [Synthroid 0.075 mg Tablet] 0.075 mg PO Q6AM 08/10/18 Amlodipine Besylate [Norvasc 10 mg Tablet] 10 mg PO DAILY 11/13/18 Apixaban [Eliquis 5 mg Tablet] 5 mg PO BID 11/13/18 Aspirin [Ecotrin 81 mg EC Tablet] 81 mg PO DAILY 11/13/18 Atorvastatin Calcium [Lipitor 40 mg Tablet] 40 mg PO QHS 11/13/18 Cholecalciferol (Vitamin D3) [Vitamin D3 1000 Unit Tablet] 1,000 unit PO DAILY 11/13/18 Cinacalcet HCl [Sensipar 30 mg Tablet] 30 mg PO BID 11/13/18 Gabapentin [Neurontin 100 mg Capsule] 200 mg PO QHS 11/13/18 Lacosamide [Vimpat 50 mg Tablet] 100 mg PO Q12 11/13/18 Lubiprostone [Amitiza 24 Mcg Capsule] 24 mcg PO Q12 11/13/18 Acetaminophen [Tylenol 325 mg Tablet] 650 mg PO Q6HP PRN tablet 11/24/18 Lactobacillus Acidophilus [Bacid 250 mg Tablet] 500 mg PO BID tab 11/24/18 Levetiracetam [Keppra 500 mg Tablet] 1,000 mg PO Q12 tablet 11/24/18 Clobetasol Propionate [Temovate 0.05% Cream 15 gm] 1 applic TP DAILY tube 12/05/18 Magnesium Oxide 400 mg PO DAILY #120 tablet 12/05/18 Ondansetron [Zofran Odt 4 mg Tablet] 8 mg PO Q4HP PRN tab.rapdis 12/05/18 Vancomycin HCl [Vancocin Inj 500 mg Vial] 250 mg PO Q6 #40 vial 12/05/18 History of Present Illness Admission Date/PCP: 12/02/18 20:09 MARY RASHID MD History of Present Illness: IVY CLAIRE is a 78 year old female, she is presently in rehabilitation undergoing physical therapy, she was transferred from custodial home to the emergency room for evaluation of palpitation, she was found to have severe hypomagnesemia with sinus tachycardia. She has a history of epilepsy on antiepileptic drugs, she was in the emergency room and evaluated by the ED physician they felt patient needed to be admitted to have the magnesium corrected before discharge back to custodial home for continuity of care f or the physical therapy Hospital Course Hospital Course: Patient was admitted for the management of hypomagnesemia due to GI losses. She has diarrhea due to C. difficile toxinemia She presented with palpitation, she was found to have severe hypomagnesemia, this was replenished intravenously. The hypomagnesemia is felt to be secondary to the diarrhea as a result of C. difficile infection. The Clostridium difficile was treated with oral vancomycin with good results. [facility] she was in the [facility] before this admission for rehabilitation. She will be transferred back to [facility] to continue rehabilitation. Physical Exam Vital Signs: Temp Pulse Resp BP Pulse Ox 97.8 F 91 16 112/53 L 98 12/05/18 16:11 12/05/18 16:11 12/05/18 16:11 12/05/18 16:11 12/05/18 16:11 Intake & Output 12/04/18 12/05/18 12/06/18 06:59 06:59 06:59 Intake Total 888 865 492 Balance 888 865 492 Weight 95.7 kg 94.1 kg General appearance: PRESENT: no acute distress, well-developed, well-nourished Head exam: PRESENT: atraumatic, normocephalic Eye exam: PRESENT: conjunctiva pink, EOMI, PERRLA Ear exam: PRESENT: normal external ear exam Mouth exam: PRESENT: moist, tongue midline Respiratory exam: PRESENT: clear to auscultation heidi Cardiovascular exam: PRESENT: RRR Pulses: PRESENT: normal dorsalis pedis pul Vascular exam: PRESENT: normal capillary refill GI/Abdominal exam: PRESENT: normal bowel sounds, soft Rectal exam: PRESENT: deferred Extremities exam: PRESENT: full ROM. ABSENT: calf tenderness, clubbing, pedal edema Neurological exam: PRESENT: alert, awake, oriented to person, oriented to place, oriented to time, oriented to situation, CN II-XII grossly intact Psychiatric exam: PRESENT: appropriate affect, normal mood Skin exam: PRESENT: dry, intact, warm Results Laboratory Results: 12/02/18 16:29 12/03/18 04:48 12/05/18 06:07 Magnesium 1.5 L 12/02/18 16:29 Troponin I < 0.012 Impressions: Chest X-Ray 12/02/18 15:40 IMPRESSION: NO SIGNIFICANT RADIOGRAPHIC FINDING IN THE CHEST. Venous Doppler Study 12/02/18 16:10 IMPRESSION: No evidence of bilateral lower extremity deep venous thrombosis.] Qualifiers - * PATIENT BEING DISCHARGED WITH ANY OF THE FOLLOWING DIAGNOSIS: No VTE patient discharged on overlapping Therapy?: No Reason(s) for not prescribing Overlap Therapy:: Not indicated Stroke Pt being discharged on Anti-thrombolytic therapy?: No Reason(s) for not prescribing Anti-thrombolytic therapy:: Not indicated Stroke Pt being discharged on Anti-coagulation therapy?: No Reason(s) for not prescribing Anti-coagulation therapy:: Not indicated Stroke Pt being discharged on Statins?: No Reason(s) for not prescribing Statins therapy:: Not indicated IA Pt being discharged on Statins?: No Reason(s) for not prescribing Statin therapy:: Not indicated IA Pt discharged ACEI/ARBS?: No Reason(s) for not prescribing ACEI/ARBS:: Not indicated Acute Heart Failure - Is this a Heart Failure Patient?: No d) Discharged on evidence-based Beta maru(carvedilol, sustained release metoprolol succinate, or bisoprolol)?: Yes
[2018-12-05] MEDS: FERROUS SULFATE 325 MG TABLET PO SCH (21:03)
[2018-12-05] MEDS: ATORVASTATIN CALCIUM 40 MG TABLET PO SCH (21:03)
[2018-12-05] MEDS: GABAPENTIN 100 MG CAPSULE PO SCH (21:03)
[2018-12-06] MEDS: VANCOMYCIN HCL INJ 500 MG VIAL PO SCH ×5 (00:08→23:39)
[2018-12-06] MEDS: LEVOTHYROXINE SODIUM 0.075 MG TABLET PO SCH (06:06)
[2018-12-06] MEDS: LUBIPROSTONE 24 MCG CAPSULE PO SCH ×2 (10:19→22:55)
[2018-12-06] MEDS: LEVETIRACETAM 500 MG TABLET PO SCH ×2 (10:34→22:55)
[2018-12-06] MEDS: LACTOBACILLUS ACIDOPHILUS 250 MG TAB PO SCH ×2 (10:34→18:48)
[2018-12-06] MEDS: CINACALCET HCL 30 MG TABLET PO SCH ×2 (10:34→18:48)
[2018-12-06] MEDS: APIXABAN 5 MG TABLET PO SCH ×2 (10:34→18:48)
[2018-12-06] MEDS: AMLODIPINE BESYLATE 10 MG TABLET PO SCH (10:34)
[2018-12-06] MEDS: LACOSAMIDE 50 MG TABLET PO SCH ×2 (10:35→22:57)
[2018-12-06] MEDS: ALLOPURINOL 100 MG TABLET PO SCH (10:35)
[2018-12-06] MEDS: CLOBETASOL PROPIONATE 0.05% CREAM 15 GM TP SCH (10:35)
[2018-12-06] MEDS: CHOLECALCIFEROL (D3) 1,000 UNIT (25 MCG) TABLET PO SCH (10:35)
[2018-12-06] MEDS: ASPIRIN 81 MG TABLET, ENT COATED PO SCH (10:35)
[2018-12-06] MEDS: ACETAMINOPHEN 325 MG TABLET PO PRN ×2 (15:34→22:56)
[2018-12-06] MEDS: GABAPENTIN 100 MG CAPSULE PO SCH (22:55)
[2018-12-06] MEDS: ATORVASTATIN CALCIUM 40 MG TABLET PO SCH (22:55)
[2018-12-06] MEDS: FERROUS SULFATE 325 MG TABLET PO SCH (22:55)
[2018-12-07] MEDS: VANCOMYCIN HCL INJ 500 MG VIAL PO SCH ×3 (05:42→17:40)
[2018-12-07] MEDS: LEVOTHYROXINE SODIUM 0.075 MG TABLET PO SCH (05:43)
[2018-12-07] MEDS: LEVETIRACETAM 500 MG TABLET PO SCH (10:45)
[2018-12-07] MEDS: CHOLECALCIFEROL (D3) 1,000 UNIT (25 MCG) TABLET PO SCH (10:45)
[2018-12-07] MEDS: LACOSAMIDE 50 MG TABLET PO SCH (10:45)
[2018-12-07] MEDS: AMLODIPINE BESYLATE 10 MG TABLET PO SCH (10:46)
[2018-12-07] MEDS: ASPIRIN 81 MG TABLET, ENT COATED PO SCH (10:46)
[2018-12-07] MEDS: APIXABAN 5 MG TABLET PO SCH ×2 (10:46→17:40)
[2018-12-07] MEDS: LACTOBACILLUS ACIDOPHILUS 250 MG TAB PO SCH ×2 (10:46→17:40)
[2018-12-07] MEDS: ALLOPURINOL 100 MG TABLET PO SCH (10:46)
[2018-12-07] MEDS: CINACALCET HCL 30 MG TABLET PO SCH ×2 (10:47→17:42)
[2018-12-07] MEDS: LUBIPROSTONE 24 MCG CAPSULE PO SCH (10:47)
[2018-12-07] MEDS: CLOBETASOL PROPIONATE 0.05% CREAM 15 GM TP SCH (10:50)
[2018-12-07 17:39] VITALS: BP 106/59
== END 2018-12-07 20:30 ==
LOC: ER 14:51 → EH 20:09 → INTOOBSV 20:09 → 3S 12-03 00:40
PROVIDERS: ADMIT Internal Medicine; ATTEND Internal Medicine
DX: E83.42 Hypomagnesemia (principal); R00.0 Tachycardia, unspecified; A04.72 Enterocolitis due to Clostridium difficile, not specified as recurrent; L30.9 Dermatitis, unspecified; G40.909 Epilepsy, unspecified, not intractable, without status epilepticus; R25.2 Cramp and spasm; R53.1 Weakness; M79.605 Pain in left leg; M79.604 Pain in right leg; E78.5 Hyperlipidemia, unspecified; E03.9 Hypothyroidism, unspecified; I10 Essential (primary) hypertension; Z79.899 Other long term (current) drug therapy; Z79.82 Long term (current) use of aspirin; Z86.711 Personal history of pulmonary embolism; Z86.73 Personal history of transient ischemic attack (TIA), and cerebral infarction without residual deficits; Z96.651 Presence of right artificial knee joint
CPT/HCPCS: 93005; 99285; 96365; 36415 ×4; 87086; 80177; 83735 ×4; 84443; 85025; 85610; 85730; 87088; 80053 ×2; 81001; 84484; 87186; 87493; 93970; 71045; 93010; 97110; 97116; 97163; G0378 ×7; A9270 ×58; J3490; J3475 ×3; J3370 ×5

== ENCOUNTER 2019-02-12 20:03 | Emergency (ER) | payer MEDICARE ==
--- NOTE | 2019-02-12 20:34 | ER Document Report ---
ED Medical Screen (RME) - General Chief Complaint: Weakness Stated Complaint: WEAKNESS Time Seen by Provider: 02/12/19 20:28 Primary Care Provider: MARY RASHID MD [Primary Care Provider] - Follow up as needed Mode of Arrival: Medic Information source: Patient, Relative Notes: 78-year-old female presented to ED via EMS for weakness. She states just before EMS got to the house her gave her some salt and she is actually feeling better. She states she has had a history of low sodium in the past. States she has been feeling weak for about a week. She states she called her doctor about 2 weeks ago and he gave her a prescription for some medicine for appetite because she thought it might be because she was not eating enough. She states this medicine did not seem to help her weakness. States she has a history of seizures. Family states that for the last 6 months or so she has been in and out of the hospital for frequent seizures and they have not gotten to the bottom of why she is having the seizures. She has had low calcium low sodium and she is on C. difficile precautions. I have greeted and performed a rapid initial assessment of this patient. A comprehensive ED assessment and evaluation of the patient, analysis of test results and completion of medical decision making process will be conducted by an additional ED providers. TRAVEL OUTSIDE OF THE [place] IN LAST 30 DAYS: No - Related Data Allergies/Adverse Reactions: steriods Allergy (Uncoded 08/10/18 12:33) steroids Adverse Reaction (Intermediate, Uncoded 08/10/18 12:33) Past Medical History - Past Medical History Cardiac Medical History: Reports: Hx Hypercholesterolemia, Hx Hypertension, Hx Pulmonary Embolism - 2 blood clots in her lungs a few years ago Denies: Hx Atrial Fibrillation, Hx Congestive Heart Failure, Hx Heart Attack Pulmonary Medical History: Reports: Hx Bronchitis Denies: Hx Asthma, Hx COPD, Hx Pneumonia, Hx Tuberculosis Neurological Medical History: Reports: Hx Cerebrovascular Accident - About a year ago.. Denies: Hx Seizures Endocrine Medical History: Reports: Hx Hypothyroidism Renal/ Medical History: Reports: Hx Renal Insufficiency. Denies: Hx End Stage Renal Disease, Hx Peritoneal Dialysis Malignancy Medical History: Denies: Hx Leukemia, Hx Lung Cancer GI Medical History: Denies: Hx Hepatitis, Hx Hiatal Hernia, Hx Ulcer Musculoskeltal Medical History: Reports Hx Arthritis, Denies Hx Fibromyalgia, Reports Hx Gout Psychiatric Medical History: Reports: Hx Depression Infectious Medical History: Denies: Hx Hepatitis, Hx HIV Past Surgical History: Reports: Hx Orthopedic Surgery - R knee replacement. Denies: Hx Appendectomy, Hx Section, Hx Cholecystectomy, Hx Coronary Artery Bypass Graft, Hx Gastric Bypass Surgery, Hx Herniorrhaphy, Hx Hysterectomy, Hx Mastectomy, Hx Open Heart Surgery, Hx Pacemaker, Hx Tonsillectomy, Hx Tubal Ligation - Immunizations Hx Diphtheria, Pertussis, Tetanus Vaccination: Yes - <5 years Physical Exam - Vital signs Vitals: Temp Pulse Resp BP Pulse Ox 97.6 F 99 18 122/72 100 02/12/19 20:14 02/12/19 20:14 02/12/19 20:14 02/12/19 20:14 02/12/19 20:14 Course - Vital Signs Vital signs: Temp Pulse Resp BP Pulse Ox 97.6 F 99 18 122/72 100 02/12/19 20:14 02/12/19 20:14 02/12/19 20:14 02/12/19 20:14 02/12/19 20:14 Doctor's Discharge - Discharge Referrals: MARY RASHID MD [Primary Care Provider] - Follow up as needed
[2019-02-12 21:10] LABS: HEMATOCRIT 31.7 % (36.0-47.0); HEMOGLOBIN 10.4 g/dL (12.0-15.5); MEAN CORPUSCULAR HEMOGLOBIN 28.9 pg (27.0-33.4); MEAN CORPUSCULAR VOLUME 88 fl (80-97); PLATELET COUNT 302 10^3/uL (150-450); RED BLOOD COUNT 3.61 10^6/uL (3.72-5.28); RED CELL DISTRIBUTION WIDTH 20.6 % (11.5-14.0); WHITE BLOOD COUNT 5.8 10^3/uL (4.0-10.5)
[2019-02-12 21:25] LABS: ALBUMIN 2.7 g/dL (3.5-5.0); ALKALINE PHOSPHATASE 79 U/L (38-126); ASPARTATE AMINO TRANSFERASE 42 U/L (14-36); BILIRUBIN,DIRECT 0.4 mg/dL (0.0-0.4); BILIRUBIN,TOTAL 0.8 mg/dL (0.2-1.3); BLOOD UREA NITROGEN 13 mg/dL (7-20); CALCIUM 7.4 mg/dL (8.4-10.2); CHLORIDE 90 mmol/L (98-107); CREATINE KINASE 64 U/L (30-135); GLUCOSE 83 mg/dL (75-110); TOTAL PROTEIN 5.8 g/dL (6.3-8.2)
[2019-02-12 21:31] LABS: ANION GAP 11 (5-19)
[2019-02-12 21:32] LABS: CARBON DIOXIDE 38 mmol/L (22-30)
[2019-02-12 21:34] LABS: POTASSIUM 2.7 mmol/L (3.6-5.0)
[2019-02-12] MEDS ORDERED: POTASSI CL 20 MEQ/50 ML RIDER 20 MEQ/50 ML RTUPB IV ONE (21:38)
[2019-02-12] MEDS ORDERED: POTASSIUM CHLORIDE 20 MEQ PACKET PO ONE (21:38)
[2019-02-12 21:39] LABS: ABSOLUTE LYMPHOCYTES# (MANUAL) 0.9 10^3/uL (0.5-4.7); ABSOLUTE MONOCYTES # (MANUAL) 0.4 10^3/uL (0.1-1.4); ANISOCYTOSIS 2+; BASOPHILS % (MANUAL) 0 % (0-2); EOSINOPHILS % (MANUAL) 0 % (0-6); HYPOCHROMASIA 2+; LYMPHOCYTES % (MANUAL) 15 % (13-45); MONOCYTES % (MANUAL) 7 % (3-13); NUCLEATED RED BLOOD CELLS 3 /100 WBC (0); SEGMENTED NEUTROPHILS % (MAN) 78 % (42-78); TARGET CELLS 3+; TOTAL CELLS COUNTED 100
[2019-02-12 21:40] LABS: PLATELET COMMENT ADEQUATE
[2019-02-12] MEDS ORDERED: MAGNESIUM SULFATE/D5W 1 GM/100 ML RTUPB IV ONE (21:40)
--- NOTE | 2019-02-12 21:51 | ER Document Report ---
ED General - General Chief Complaint: Weakness Stated Complaint: WEAKNESS Time Seen by Provider: 02/12/19 20:28 Primary Care Provider: MARY RASHID MD [Primary Care Provider] - Follow up as needed Mode of Arrival: Medic TRAVEL OUTSIDE OF THE [place] IN LAST 30 DAYS: No - HPI Notes: Ms. Carbajal is a 78-year-old female presenting with with a chief complaint of generalized weakness getting progressively worse over the last 2 weeks. Patient is a relatively poor historian. She apparently has been treated for C. difficile enterocolitis in the past. She says recently she is been having recurrent watery stools. She did not bring a list of her medicines tonight and family members are unable to clarify exactly what she is taking. She is on some common oral anticonvulsant. She says she is previously taken some magnesium and potassium replacement but they are unsure if she is still on this. She is not currently taking antibiotic and is not recently been on antibiotics. The patient has had some nausea and vomited once today. She is had 2 watery stools today. She denies any bloody stools. She denies abdominal pain or cramping at this time. - Related Data Allergies/Adverse Reactions: steriods Allergy (Uncoded 08/10/18 12:33) steroids Adverse Reaction (Intermediate, Uncoded 08/10/18 12:33) Home Medications: see hospital records Past Medical History - General Information source: Patient, Relative Cannot obtain history due to: Other - Patient is a poor historian. Family members do not know a lot of details regarding her medical history. - Social History Smoking Status: Never Smoker Family History: Reviewed & Not Pertinent Patient has suicidal ideation: No Patient has homicidal ideation: No - Past Medical History Cardiac Medical History: Reports: Hx Hypercholesterolemia, Hx Hypertension, Hx Pulmonary Embolism - 2 blood clots in her lungs a few years ago Denies: Hx Atrial Fibrillation, Hx Congestive Heart Failure, Hx Heart Attack Pulmonary Medical History: Reports: Hx Bronchitis Denies: Hx Asthma, Hx COPD, Hx Pneumonia, Hx Tuberculosis Neurological Medical History: Reports: Hx Cerebrovascular Accident - About a year ago.. Denies: Hx Seizures Endocrine Medical History: Reports: Hx Hypothyroidism Renal/ Medical History: Reports: Hx Renal Insufficiency. Denies: Hx End Stage Renal Disease, Hx Peritoneal Dialysis Malignancy Medical History: Denies: Hx Leukemia, Hx Lung Cancer GI Medical History: Denies: Hx Hepatitis, Hx Hiatal Hernia, Hx Ulcer Musculoskeletal Medical History: Reports Hx Arthritis, Denies Hx Fibromyalgia, Reports Hx Gout Psychiatric Medical History: Reports: Hx Depression Infectious Medical History: Denies: Hx Hepatitis, Hx HIV Past Surgical History: Reports: Hx Orthopedic Surgery - R knee replacement. Denies: Hx Appendectomy, Hx Section, Hx Cholecystectomy, Hx Coronary Artery Bypass Graft, Hx Gastric Bypass Surgery, Hx Herniorrhaphy, Hx Hysterectomy, Hx Mastectomy, Hx Open Heart Surgery, Hx Pacemaker, Hx To nsillectomy, Hx Tubal Ligation - Immunizations Hx Diphtheria, Pertussis, Tetanus Vaccination: Yes - <5 years Hx Pneumococcal Vaccination: 04/12/08 Review of Systems - Review of Systems Notes: Constitutional: Negative for fever. HENT: Negative for sore throat. Eyes: Negative for visual changes. Cardiovascular: Negative for chest pain. Respiratory: Negative for shortness of breath. Gastrointestinal: As per history of present illness Genitourinary: Negative for dysuria. Musculoskeletal: Negative for back pain. Skin: Negative for rash. Neurological: Positive for generalized weakness. Negative for headaches, focal weakness or paresthesias. 10 point ROS negative except as marked above and in HPI. Physical Exam - Vital signs Vitals: Temp Pulse Resp BP Pulse Ox 97.6 F 99 18 122/72 100 02/12/19 20:14 02/12/19 20:14 02/12/19 20:14 02/12/19 20:14 02/12/19 20:14 Notes: GENERAL: Well-developed well-nourished appearing in no acute distress. SKIN: Good turgor no rashes. HEAD: Normocephalic atraumatic. EYES: PERRLA. Conjunctivae and sclerae clear. EARS: CANALS AND TMS CLEAR. NOSE: CLEAR. MOUTH: Moist mucosa. Edentulous. No stridor or edema. No drooling. NECK: Supple. No masses or thyromegaly. No adenopathy. Carotids 2+ without bruits. No JVD. BACK: Symmetrical without tenderness. CHEST: Respirations unlabored. Breath sounds clear and symmetrical. HEART: Regular rhythm. No murmur gallop or rub. ABDOMEN: Soft nontender without masses, organomegaly or rebound. Bowel sounds normally active. No bruits. GENITALIA: Deferred. EXTREMITIES: No edema. No calf tenderness. Cap refill less than 1.5 seconds. Dorsalis pedis and posterior tibial pulses 3+ and symmetrical. NEUROLOGICAL: GCS 15. Alert and oriented x3. Normal gait. Fluent speech. Cranial nerves II through XII intact. Sensorimotor and cerebellar normal. Normal tone. Course - Re-evaluation Re-evalutation: 02/12/19 21:57 This is a relatively frail elderly female who has had problems with chronic diarrhea and has previously been treated for hypokalemia and hypomagnesemia. She is back in with ongoing intermittent watery diarrhea associated with progressively worsening generalized weakness. Patient is hypokalemic and hypomagnesemic here tonight and looks clinically dehydrated. Her exam is otherwise unremarkable she is afebrile with a benign abdominal exam. I would give this lady some IV normal saline and also supplement potassium and magnesium intravenously and will give her some IV Zofran. We will recheck a stool specimen for C. difficile while she is here. Hopefully we can stabilize her condition for outpatient follow-up with her primary care physician tomorrow. 02/13/19 02:26 Patient feels much better. She is received IV normal saline, IV Zofran IV potas sium and IV magnesium and was also taken potassium orally. She is tolerating p.o. fluids well. Family will take around for follow-up with primary care doctor tomorrow and we will prescribe Zofran, magnesium oxide and potassium for home. - Vital Signs Vital signs: Temp Pulse Resp BP Pulse Ox 97.6 F 99 18 122/72 100 02/12/19 20:14 02/12/19 20:14 02/12/19 20:14 02/12/19 20:14 02/12/19 20:14 - Laboratory Result Diagrams: 02/12/19 20:51 02/12/19 20:51 Laboratory results interpreted by me: 02/12/19 02/12/19 20:51 20:51 RBC 3.61 L Hgb 10.4 L Hct 31.7 L RDW 20.6 H Potassium 2.7 L* Chloride 90 L Carbon Dioxide 38 H Est GFR ( Amer) 55 L Est GFR (MDRD) Non-Af 46 L Calcium 7.4 L Magnesium 0.6 L* AST 42 H Total Protein 5.8 L Albumin 2.7 L Discharge - Discharge Clinical Impression: Hypokalemia, Hypomagnesemia, Dehydration Condition: Stable Disposition: HOME, SELF-CARE Additional Instructions: Increase oral fluids. Return here as needed for new or worsening symptoms. Follow-up with your doctor within the next 24 hours as directed. Prescriptions: Metronidazole [Flagyl 500 mg Tablet] 500 mg PO Q6H #40 tablet Potassium Chloride 10 meq PO BID 5 Days tablet.er Referrals: MARY RASHID MD [Primary Care Provider] - Follow up as needed
[2019-02-12] MEDS ORDERED: NORMAL SALINE 1000 ML 1,000 ML IV ONE ×2 (21:55)
[2019-02-13 03:34] VITALS: BP 118/61
== END 2019-02-13 03:31 | disposition home or self-care (01) ==
LOC: ER 20:03
DX: E86.0 Dehydration (principal); E87.6 Hypokalemia; E83.42 Hypomagnesemia; R53.1 Weakness; R11.0 Nausea; Z96.651 Presence of right artificial knee joint; E78.00 Pure hypercholesterolemia, unspecified; I10 Essential (primary) hypertension
CPT/HCPCS: 36415; 82553; 82550; 83735; 85025; 80053; J3475; J3480; J7030 ×2; J3490

== ENCOUNTER 2019-02-20 12:50 | Emergency (ER) | payer MEDICARE ==
[2019-02-20 13:02] VITALS: BP 142/82
--- NOTE | 2019-02-20 13:21 | ER Document Report ---
ED Medical Screen (RME) - General Chief Complaint: Nausea Stated Complaint: NAUSEA Time Seen by Provider: 02/20/19 13:13 Primary Care Provider: MARY RASHID MD [Primary Care Provider] - Follow up as needed Mode of Arrival: Wheelchair Information source: Patient Notes: Patient is a 78-year-old female presenting to the emergency department with multiple complaints. Patient's states for the last 2 days she has had nausea, vomiting and diarrhea and multiple syncopal episodes. He states that she also had right-sided weakness. Patient does have a history of stroke. Patient is alert, oriented, answering all questions appropriately. No obvious neurological deficits noted. I have greeted and performed a rapid initial assessment of this patient. A comprehensive ED assessment and evaluation of the patient, analysis of test results and completion of the medical decision making process will be conducted by additional ED providers. I have specifically instructed the patient or family members with the patient to immediately return to any nursing staff should anything change in the patient's condition or with their chief complaint. This medical record was dictated with voice recognizing software. There may be grammatical, syntax errors that are unintended. TRAVEL OUTSIDE OF THE [place] IN LAST 30 DAYS: No - Related Data Allergies/Adverse Reactions: steriods Allergy (Uncoded 08/10/18 12:33) steroids Adverse Reaction (Intermediate, Uncoded 08/10/18 12:33) Home Medications: levothyroxine, allopurinol, atorvastatin, cinacalcet, amitiza, gabapentin, metoprolol, vimpat, potassium cl ER, magnesium oxide, metronidazole Past Medical History - Social History Chew tobacco use (# tins/day): No Frequency of alcohol use: None Drug Abuse: None - Past Medical History Cardiac Medical History: Reports: Hx Hypercholesterolemia, Hx Hypertension, Hx Pulmonary Embolism - 2 blood clots in her lungs a few years ago Denies: Hx Atrial Fibrillation, Hx Congestive Heart Failure, Hx Heart Attack Pulmonary Medical History: Reports: Hx Bronchitis Denies: Hx Asthma, Hx COPD, Hx Pneumonia, Hx Tuberculosis Neurological Medical History: Reports: Hx Cerebrovascular Accident - About a year ago.. Denies: Hx Seizures Endocrine Medical History: Reports: Hx Hypothyroidism Renal/ Medical History: Reports: Hx Renal Insufficiency. Denies: Hx End Stage Renal Disease, Hx Peritoneal Dialysis Malignancy Medical History: Denies: Hx Leukemia, Hx Lung Cancer GI Medical History: Denies: Hx Hepatitis, Hx Hiatal Hernia, Hx Ulcer Musculoskeltal Medical History: Reports Hx Arthritis, Denies Hx Fibromyalgia, Reports Hx Gout Psychiatric Medical History: Reports: Hx Depression Infectious Medical History: Denies: Hx Hepatitis, Hx HIV Past Surgical History: Reports: Hx Orthopedic Surgery - R knee replacement. Denies: Hx Appendectomy, Hx Section, Hx Cholecystectomy, Hx Coronary Artery Bypass Graft, Hx Gastric Bypass Surgery, Hx Herniorrhaphy, Hx Hysterectomy, Hx Mastectomy, Hx Open Heart Surgery, Hx Pacemaker, Hx Tonsillectomy, Hx Tubal Ligation - Immunizations Hx Diphtheria, Pertussis, Tetanus Vaccination: Yes - <5 years Physical Exam - Vital signs Vitals: Temp Pulse Resp BP Pulse Ox 97.9 F 107 H 20 142/82 H 95 02/20/19 12:59 02/20/19 12:59 02/20/19 12:59 02/20/19 12:59 02/20/19 12:59 Course - Vital Signs Vital signs: Temp Pulse Resp BP Pulse Ox 97.9 F 107 H 20 142/82 H 95 02/20/19 12:59 02/20/19 12:59 02/20/19 12:59 02/20/19 12:59 02/20/19 12:59 Doctor's Discharge - Discharge Referrals: MARY RASHID MD [Primary Care Provider] - Follow up as needed
[2019-02-20] MEDS ORDERED: NORMAL SALINE 1000 ML 500 ML IV ONE (13:24)
[2019-02-20] MEDS ORDERED: ONDANSETRON HCL INJ/PF 4 MG/2 ML SDV IV ONE (13:24)
[2019-02-20 21:48] LABS: INTERNATIONAL RATION (INR) 1.16; PROTHROMBIN TIME 14.8 SEC (11.4-15.4)
[2019-02-20 21:49] LABS: PARTIAL THROMBOPLASTIN TIME 35.2 SEC (23.5-35.8)
== END 2019-02-20 14:35 | disposition left against medical advice (07) ==
LOC: ER 12:50
DX: Z53.21 Procedure and treatment not carried out due to patient leaving prior to being seen by health care provider (principal); R11.2 Nausea with vomiting, unspecified; R19.7 Diarrhea, unspecified; I10 Essential (primary) hypertension
CPT/HCPCS: 36415; 82550; 85610; 85730; 99281

== ENCOUNTER 2019-02-20 16:52 | Inpatient (IN) | payer MEDICARE ==
[2019-02-20 19:13] LABS: ARTERIAL BLOOD BASE EXCESS 13.6 mmol/L; ARTERIAL BLOOD FIO2 21%; ARTERIAL BLOOD H2CO3 1.32 mmol/L (1.05-1.35); ARTERIAL BLOOD HCO3 37.4 mmol/L (20-24); ARTERIAL BLOOD O2 SATURATION 94.6 % (94-98); ARTERIAL BLOOD PCO2 43.7 mmHg (35-45); ARTERIAL BLOOD PH 7.55 (7.35-7.45); ARTERIAL BLOOD PO2 63.7 mmHg (80-100); ARTERIAL BLOOD TOTAL CO2 38.7 mmol/L (21-25)
[2019-02-20] MEDS ORDERED: LIDOCAINE 1% INJ-PF (10 MG/ML) 30 ML SDV ONE (19:58)
--- NOTE | 2019-02-20 20:30 | PDOC CONSULTATION ---
Consultation Consult Date: 02/20/19 Provider Consulted: PAT WHALEN Consult reason:: Need of central venous line for fluids and medication administration History of Present Illness Admission Date/PCP: 02/20/19 16:52 MARY RASHID MD History of Present Illness: IVY CLAIRE is a 78 year old female needs IV access for administration of medications and fluids intravenously Past Medical History Cardiac Medical History: Reports: Hyperlipidema, Hypertension, Pulmonary Embolism - 2 blood clots in her lungs a few years ago Denies: Atrial Fibrillation, Congestive Heart Failure, Coronary Artery Disease, Myocardial Infarction, Peripheral Vascular Disease, Heart Murmur Pulmonary Medical History: Reports: Bronchitis Denies: Asthma, Chronic Obstructive Pulmonary Disease (COPD), Pneumonia, Respiratory Failure, Sleep Apnea, Tuberculosis Neurological Medical History: Denies: Seizures Endocrine Medical History: Reports: Hypothyroidism Renal/ Medical History: Denies: End Stage Renal Disease Malignancy Medical History: Denies: Leukemia, Lung Cancer GI Medical History: Denies: Hepatitis, Hiatal Hernia Musculoskeltal Medical History: Reports: Arthritis, Gout Denies: Fibromyalgia Psychiatric Medical History: Reports: Depression Hematology: Reports: Anemia Denies: Hemophilia, Sickle Cell Disease Infectious Medical History: Denies: HIV Past Surgical History Past Surgical History: Reports: Orthopedic Surgery - R knee replacement Denies: Amputation, Appendectomy, Section, Cholecystectomy, Coronary Artery Bypass Graft, Gastric Bypass Surgery, Herniorrhaphy, Hysterectomy, Mastectomy, Pacemaker, Tonsillectomy, Tubal Ligation Social History Smoking Status: Former Smoker Frequency of Alcohol Use: None Hx Recreational Drug Use: No Drugs: None Hx Prescription Drug Abuse: No Family History Family History: Reviewed & Not Pertinent Parental Family History Reviewed: No Children Family History Reviewed: No Sibling(s) Family History Reviewed.: No Medication/Allergy Allergies/Adverse Reactions: steriods Allergy (Uncoded 08/10/18 12:33) steroids Adverse Reaction (Intermediate, Uncoded 08/10/18 12:33) Physical Exam Vital Signs: Temp Pulse Resp BP Pulse Ox 93 02/20/19 19:25 Intake & Output 02/19/19 02/20/19 02/21/19 06:59 06:59 06:59 Weight 88.224 kg General appearance: PRESENT: obese Head exam: PRESENT: atraumatic Mouth exam: PRESENT: moist, neck supple Neck exam: PRESENT: full ROM Results Laboratory Results: 02/20/19 18:40 Carbonic Acid 1.32 HCO3/H2CO3 Ratio 28:1 ABG pH 7.55 H ABG pCO2 43.7 ABG pO2 63.7 L ABG HCO3 37.4 H ABG O2 Saturation 94.6 ABG Base Excess 13.6 FiO2 21% Assessment & Plan - Diagnosis (1) Need for intravenous access Is this a current diagnosis for this admission?: Yes - Plan Summary Plan Summary: Assessment: Need to IV access for administration of medications and drugs Plan: Plan placement of subclavian central venous line at bedside Procedure, risks, benefits, complications, alternatives explained to the patient, she understands all the above, and decides to proceed
--- NOTE | 2019-02-20 20:38 | Operative Report ---
Operative Report DATE OF SURGERY: 02/20/19 PREOPERATIVE DIAGNOSIS: Need of IV access for medications and fluids POSTOPERATIVE DIAGNOSIS: Same OPERATION: Placement of left subclavian vein triple-lumen catheter SURGEON: PAT WHALEN ANESTHESIA: Local - 20 ML's of 1% lidocaine TISSUE REMOVED OR ALTERED: Not applicable COMPLICATIONS: None ESTIMATED BLOOD LOSS: 5 mL INTRAOPERATIVE FINDINGS: As above PROCEDURE: The procedure was done at bedside: The patient was placed in a supine position, the patient neck and chest were prepped and draped in the usual fashion. The midportion of the left clavicle and just below it was infiltrated with lidocaine, a 16-gauge needle was then used to cannulate the left subclavian vein without difficulty with good blood return; a guidewire was inserted through the needle into the subclavian vein without difficulty the needle was removed. The insertion point of the guidewire was enlarged with a #11 blade and a tissue dilator which was then removed. A triple-lumen catheter was inserted without difficulty over the guidewire into the left subclavian vein up to 16 cm, the guidewire was removed. Each port was aspirated and flushed with normal saline without difficulty. The catheter was secured to the skin with 3-0 nylon sutures and sterile dressing applied. The patient tolerated the procedure well and portable chest-ray was obtained to confirm good position of the line.
--- NOTE | 2019-02-20 21:11 | RADIOLOGY REPORT (SQ) ---
EXAM DESCRIPTION: Chest x-ray one view, February 20, 2019 at 8:48 PM CLINICAL HISTORY: s/p CVL placement COMPARISON: December 02, 2018 FINDINGS: There has been interval placement of a left central venous catheter with the tip ending at the level of the superior vena cava. Aorta is tortuous. Blunted right costophrenic angle could be secondary to pleural fluid. There is no pneumothorax. Cardiac silhouette is within normal limits. There is no acute osseous process visualized. IMPRESSION: Left central venous catheter, no pneumothorax. Blunted right costophrenic angle could be secondary to pleural fluid.
[2019-02-20] MEDS: 1/2 NORMAL SALINE 1,000 ML IV PRN (21:41)
[2019-02-20 21:46] LABS: ABSOLUTE LYMPHOCYTES (AUTO) 1.2 10^3/uL (0.5-4.7); ABSOLUTE MONOCYTES (AUTO) 0.6 10^3/uL (0.1-1.4); ABSOLUTE NEUT (AUTO) 3.9 10^3/uL (1.7-8.2); BASOPHILS % (AUTO) 0.3 % (0-2); EOSINOPHILS % (AUTO) 0.4 % (0-6); HEMOGLOBIN 8.6 g/dL (12.0-15.5); LYMPHOCYTES % (AUTO) 21.1 % (13-45); MEAN CORPUSCULAR HEMOGLOBIN 28.3 pg (27.0-33.4); MEAN CORPUSCULAR HGB CONC 33.1 g/dL (32.0-36.0); MEAN CORPUSCULAR VOLUME 86 fl (80-97); MONOCYTES % (AUTO) 10.3 % (3-13); PLATELET COUNT 277 10^3/uL (150-450); RED BLOOD COUNT 3.03 10^6/uL (3.72-5.28); SEGMENTED NEUTROPHILS % (AUTO) 67.9 % (42-78); TOTAL CELLS COUNTED % (AUTO) 100 %; WHITE BLOOD COUNT 5.7 10^3/uL (4.0-10.5)
[2019-02-20 22:01] LABS: ALBUMIN 2.3 g/dL (3.5-5.0); ALKALINE PHOSPHATASE 87 U/L (38-126); ANION GAP 8 (5-19); ASPARTATE AMINO TRANSFERASE 36 U/L (14-36); BILIRUBIN,DIRECT 0.4 mg/dL (0.0-0.4); BILIRUBIN,TOTAL 0.8 mg/dL (0.2-1.3); BLOOD UREA NITROGEN 11 mg/dL (7-20); CALCIUM 7.6 mg/dL (8.4-10.2); CARBON DIOXIDE 39 mmol/L (22-30); CHLORIDE 94 mmol/L (98-107); GLUCOSE 83 mg/dL (75-110); TOTAL PROTEIN 5.2 g/dL (6.3-8.2)
[2019-02-20 22:04] LABS: APPEARANCE,URINE CLEAR; BILIRUBIN,URINE SMALL (NEGATIVE); COLOR,URINE AMBER; GLUCOSE, URINE NEGATIVE (NEGATIVE); KETONES,URINE 20 mg/dL (NEGATIVE); LEUKOCYTE ESTERASE,URINE NEGATIVE (NEGATIVE); NITRITE,URINE NEGATIVE (NEGATIVE); PROTEIN,URINE 30 mg/dL (NEGATIVE); URINE SPECIFIC GRAVITY 1.024; UROBILINOGEN,URINE NEGATIVE mg/dL (<2.0)
[2019-02-20 22:26] LABS: POTASSIUM 2.6 mmol/L (3.6-5.0)
[2019-02-20 22:56] LABS: ABSOLUTE RETICS # 0.006 10^6/uL (0.028-0.122)
--- NOTE | 2019-02-20 23:00 | PDOC H&P ---
History of Present Illness Admission Date/PCP: 02/20/19 16:52 MARY RASHID MD History of Present Illness: IVY CLAIRE is a 78 year old female, Patient was seen in the emergency room earlier today for evaluation of, vomiting, diarrhea, multiple syncope episode she was initially screened in the emergency room but she came to the office subsequently for evaluation, the was particularly concerned about her symptoms, in the office she was evaluated she was pale looking she looked dehydrated. She was admitted directly from the office to the hospital for evaluation of her symptoms of diarrhea. She was found to have Severe hypokalemia Past Medical History Cardiac Medical History: Reports: Hyperlipidema, Hypertension, Pulmonary Embolism - 2 blood clots in her lungs a few years ago Pulmonary Medical History: Reports: Bronchitis Endocrine Medical History: Reports: Hypothyroidism Musculoskeltal Medical History: Reports: Arthritis, Gout Psychiatric Medical History: Reports: Depression Hematology: Reports: Anemia Infectious Medical History: Denies: HIV Past Surgical History Past Surgical History: Reports: Orthopedic Surgery - R knee replacement Social History Smoking Status: Former Smoker Electronic Cigarette use?: No Frequency of Alcohol Use: None Hx Recreational Drug Use: No Drugs: None Hx Prescription Drug Abuse: No Family History Family History: Reviewed & Not Pertinent Parental Family History Reviewed: Yes Children Family History Reviewed: Yes Sibling(s) Family History Reviewed.: Yes Medication/Allergy Home Medications: Allopurinol [Zyloprim 100 mg Tablet] 100 mg PO DAILY 02/20/19 Amlodipine Besylate [Norvasc 10 mg Tablet] 10 mg PO DAILY 02/20/19 Apixaban [Eliquis 5 mg Tablet] 5 mg PO BID 02/20/19 Aspirin [Ecotrin 81 mg EC Tablet] 81 mg PO DAILY 02/20/19 Atorvastatin Calcium [Lipitor 40 mg Tablet] 40 mg PO QHS 02/20/19 Cholecalciferol (Vitamin D3) [Vitamin D3 1000 Unit Tablet] 2,000 unit PO DAILY 02/20/19 Cinacalcet HCl [Sensipar 30 Mg Tablet] 30 mg PO BID 02/20/19 Clobetasol Propionate [Temovate 0.05% Cream 15 Gm] 1 applic TP DAILY 02/20/19 Ferrous Sulfate [Feosol 325 mg Tablet] 325 mg PO QHS 02/20/19 Gabapentin [Neurontin 100 mg Capsule] 200 mg PO QHS 02/20/19 L.acidoph/L.bulg/B.bif/S.therm [Bacid Caplet] 2 each PO BID 02/20/19 Lacosamide [Vimpat 100 mg Tablet] 100 mg PO Q12 02/20/19 Levetiracetam 1,000 mg PO Q12 02/20/19 Levothyroxine Sodium [Synthroid 0.075 mg Tablet] 0.075 mg PO Q6AM 02/20/19 Lubiprostone [Amitiza 24 Mcg Capsule] 24 mcg PO BID 02/20/19 Magnesium Oxide [Mag-Ox 400 mg Tablet] 400 mg PO DAILY 02/20/19 Megestrol Acetate [Megace Katlin 400 mg/10 ml Udcup] 400 mg PO DAILY 02/20/19 Metoprolol Succinate [Toprol Xl 50 mg Tab.sr] 50 mg PO DAILY 02/20/19 Metronidazole [Flagyl 500 mg Tablet] 500 mg PO Q6 02/20/19 Ondansetron HCl [Zofran 8 mg Tablet] 8 mg PO Q4HP PRN 02/20/19 Allergies/Adverse Reactions: steriods Allergy (Uncoded 08/10/18 12:33) steroids Adverse Reaction (Intermediate, Uncoded 08/10/18 12:33) Review of Systems Constitutional: PRESENT: anorexia, fatigue Eyes: ABSENT: visual disturbances Ears: ABSENT: hearing changes Cardiovascular: ABSENT: chest pain, dyspnea on exertion, edema, orthropnea, palpitations Respiratory: ABSENT: cough, hemoptysis Gastrointestinal: PRESENT: diarrhea Genitourinary: ABSENT: dysuria, hematuria Musculoskeletal: ABSENT: joint swelling Integumentary: ABSENT: rash, wounds Neurological: ABSENT: abnormal gait, abnormal speech, confusion, dizziness, focal weakness, syncope Psychiatric: ABSENT: anxiety, depression, homidical ideation, suicidal ideation Endocrine: ABSENT: cold intolerance, heat intolerance, menstrual abnormalities, polydipsia, polyuria Hematologic/Lymphatic: ABSENT: easy bleeding, easy bruising, lymphadenopathy Physical Exam Vital Signs: Temp Pulse Resp BP Pulse Ox 93 02/20/19 19:25 Intake & Output 02/19/19 02/20/19 02/21/19 06:59 06:59 06:59 Weight 88.224 kg General appearance: PRESENT: no acute distress Head exam: PRESENT: atraumatic, normocephalic Ear exam: PRESENT: normal external ear exam Mouth exam: PRESENT: moist, tongue midline Neck exam: PRESENT: full ROM Respiratory exam: PRESENT: clear to auscultation heidi Cardiovascular exam: PRESENT: RRR, +S1, +S2 Pulses: PRESENT: normal dorsalis pedis pul, +2 pedal pulses bilateral Vascular exam: PRESENT: normal capillary refill GI/Abdominal exam: PRESENT: normal bowel sounds, soft Rectal exam: PRESENT: deferred Neurological exam: PRESENT: alert, awake, oriented to person, oriented to place, oriented to time, oriented to situation, CN II-XII grossly intact Psychiatric exam: PRESENT: appropriate affect, normal mood Skin exam: PRESENT: dry, intact, warm. ABSENT: cyanosis, rash Results Laboratory Results: 02/20/19 21:25 02/20/19 21:25 02/20/19 02/20/19 02/20/19 18:40 20:40 21:25 WBC 5.7 RBC 3.03 L Hgb 8.6 L Hct 26.0 L MCV 86 MCH 28.3 MCHC 33.1 RDW 21.0 H Plt Count 277 Seg Neutrophils % 67.9 Carbonic Acid 1.32 HCO3/H2CO3 Ratio 28:1 ABG pH 7.55 H ABG pCO2 43.7 ABG pO2 63.7 L ABG HCO3 37.4 H ABG O2 Saturation 94.6 ABG Base Excess 13.6 FiO2 21% Sodium Potassium Chloride Carbon Dioxide Anion Gap BUN Creatinine Est GFR ( Amer) Glucose Calcium Total Bilirubin AST Alkaline Phosphatase Total Protein Albumin Urine Color ROLA Urine Appearance CLEAR Urine pH 7.0 Ur Specific [place] 1.024 Urine Protein 30 H Urine Glucose (UA) NEGATIVE Urine Ketones 20 H Urine Blood SMALL H Urine Nitrite NEGATIVE Ur Leukocyte Esterase NEGATIVE Urine WBC (Auto) 3 Urine RBC (Auto) 3 02/20/19 21:25 WBC RBC Hgb Hct MCV MCH MCHC RDW Plt Count Seg Neutrophils % Carbonic Acid HCO3/H2CO3 Ratio ABG pH ABG pCO2 ABG pO2 ABG HCO3 ABG O2 Saturation ABG Base Excess FiO2 Sodium 141.2 Potassium 2.6 L* Chloride 94 L Carbon Dioxide 39 H Anion Gap 8 BUN 11 Creatinine 0.83 Est GFR ( Amer) > 60 Glucose 83 Calcium 7.6 L Total Bilirubin 0.8 AST 36 Alkaline Phosphatase 87 Total Protein 5.2 L Albumin 2.3 L Urine Color Urine Appearance Urine pH Ur Specific [place] Urine Protein Urine Glucose (UA) Urine Ketones Urine Blood Urine Nitrite Ur Leukocyte Esterase Urine WBC (Auto) Urine RBC (Auto) Impressions: Chest X-Ray 02/20/19 00:00 IMPRESSION: Left central venous catheter, no pneumothorax. Blunted right costophrenic angle could be secondary to pleural fluid. Assessment & Plan - Diagnosis (1) Gastroenteritis Is this a current diagnosis for this admission?: Yes Plan: Patient is admitted, she is started on IV fluid she has poor intake, stool study negative for C. difficile toxin (2) Hypokalemia Is this a current diagnosis for this admission?: Yes Plan: Replace potassium (3) Hypoalbuminemia Is this a current diagnosis for this admission?: Yes
[2019-02-20 23:10] LABS: IRON(TIBC) 54.5 ug/dL (37-170)
[2019-02-20] MEDS: POTASSI CL 20 MEQ/50 ML RIDER 20 MEQ/50 ML RTUPB IV SCH (23:51)
--- NOTE | 2019-02-21 00:07 | EKG REPORT ---
SEVERITY:- BORDERLINE ECG - SINUS RHYTHM BORDERLINE T ABNORMALITIES, ANTERIOR LEADS : Confirmed by: Geni Alexander MD 21-Feb-2019 00:07:18
[2019-02-21 00:16] LABS: FOLATE 2.96 ng/mL (>2.76)
[2019-02-21 00:22] LABS: RETICULOCYTE COUNT (AUTO) 0.21 % (0.66-2.85)
[2019-02-21] MEDS ORDERED: INFLUENZA QUAD (6MOS+) 2019-20 VAC 0.5 ML SYR IM ONE (00:39)
[2019-02-21] MEDS: POTASSI CL 20 MEQ/50 ML RIDER 20 MEQ/50 ML RTUPB IV SCH ×2 (01:48→03:31)
[2019-02-21 03:32] LABS: C DIFFICILE GDH NEGATIVE (NEGATIVE)
[2019-02-21 09:18] LABS: ABSOLUTE EOSINOPHILS # (AUTO) 0.1 10^3/uL (0.0-0.6); ABSOLUTE LYMPHOCYTES (AUTO) 1.4 10^3/uL (0.5-4.7); ABSOLUTE MONOCYTES (AUTO) 0.5 10^3/uL (0.1-1.4); ABSOLUTE NEUT (AUTO) 3.6 10^3/uL (1.7-8.2); BASOPHILS % (AUTO) 0.4 % (0-2); EOSINOPHILS % (AUTO) 1.1 % (0-6); HEMATOCRIT 23.6 % (36.0-47.0); MEAN CORPUSCULAR HEMOGLOBIN 28.7 pg (27.0-33.4); MEAN CORPUSCULAR HGB CONC 34.1 g/dL (32.0-36.0); MEAN CORPUSCULAR VOLUME 84 fl (80-97); MONOCYTES % (AUTO) 9.6 % (3-13); PLATELET COUNT 248 10^3/uL (150-450); SEGMENTED NEUTROPHILS % (AUTO) 63.9 % (42-78); TOTAL CELLS COUNTED % (AUTO) 100 %; WHITE BLOOD COUNT 5.7 10^3/uL (4.0-10.5)
[2019-02-21 09:48] LABS: BLOOD UREA NITROGEN 10 mg/dL (7-20); CALCIUM 7.3 mg/dL (8.4-10.2); CHLORIDE 93 mmol/L (98-107); GLUCOSE 79 mg/dL (75-110)
[2019-02-21 10:00] LABS: ANION GAP 6 (5-19)
[2019-02-21 10:02] LABS: CARBON DIOXIDE 38 mmol/L (22-30)
[2019-02-21 10:03] LABS: POTASSIUM 2.8 mmol/L (3.6-5.0)
[2019-02-21] MEDS: METOPROLOL SUCCINATE 50 MG TAB.SR.24H PO SCH (10:06)
[2019-02-21] MEDS: AMLODIPINE BESYLATE 10 MG TABLET PO SCH (10:06)
[2019-02-21] MEDS: ASPIRIN 81 MG TABLET, ENT COATED PO SCH (10:07)
[2019-02-21] MEDS: LUBIPROSTONE 24 MCG CAPSULE PO SCH ×2 (10:07→17:27)
[2019-02-21] MEDS: ALLOPURINOL 100 MG TABLET PO SCH (10:07)
[2019-02-21] MEDS: CINACALCET HCL 30 MG TABLET PO SCH ×2 (10:07→17:27)
[2019-02-21] MEDS: LACTOBACILLUS ACIDOPHILUS 250 MG TAB PO SCH ×2 (10:07→17:27)
[2019-02-21] MEDS: MEGESTROL ACETATE SUSP 400 MG/10 ML UDCUP PO SCH (10:07)
[2019-02-21] MEDS: LACOSAMIDE 100 MG TABLET PO SCH ×2 (10:07→23:40)
[2019-02-21] MEDS: MAGNESIUM OXIDE 400 MG TABLET PO SCH (10:07)
[2019-02-21] MEDS: CHOLECALCIFEROL (D3) 1,000 UNIT (25 MCG) TABLET PO SCH (10:07)
[2019-02-21] MEDS: APIXABAN 5 MG TABLET PO SCH ×2 (10:07→17:27)
[2019-02-21] MEDS: LEVETIRACETAM ORAL SOLN 500 MG/5 ML UDCUP PO SCH ×2 (10:07→23:38)
[2019-02-21] MEDS: 1/2 NORMAL SALINE 1,000 ML IV PRN (10:20)
[2019-02-21] MEDS: ONDANSETRON HCL 8 MG TABLET PO PRN ×2 (10:21→22:28)
[2019-02-21] MEDS: CLOBETASOL PROPIONATE 0.05% CREAM 15 GM TP SCH (11:11)
[2019-02-21] MEDS: METRONIDAZOLE 500 MG TABLET PO SCH ×3 (11:12→23:40)
[2019-02-21] MEDS: POTASSIUM CHLORIDE 20 MEQ/50 ML RTU IV SCH ×4 (11:13→17:46)
[2019-02-21] MEDS: MAGNESIUM SULFATE 1 GM/D5W 100 ML IV SCH ×2 (11:13→12:27)
[2019-02-21] MEDS: ACETAMINOPHEN 325 MG TABLET PO PRN (14:27)
--- NOTE | 2019-02-21 22:42 | PDOC PROGRESS REPORT ---
Subjective Progress Note for:: 02/21/19 Subjective:: Patient seen by the bedside she was admitted yesterday, she has been requiring potassium replacement therapy due to severe hypokalemia from prolonged protracted diarrhea Reason For Visit: ANEMIA,VOMITING, ACUTE CKD Physical Exam Vital Signs: Temp Pulse Resp BP Pulse Ox 98.2 F 78 16 129/54 H 93 02/21/19 19:52 02/21/19 19:52 02/21/19 19:52 02/21/19 19:52 02/21/19 19:52 Intake & Output 02/20/19 02/21/19 02/22/19 06:59 06:59 06:59 Intake Total 492 1355 Output Total 80 150 Balance 412 1205 Weight 92.8 kg General appearance: PRESENT: no acute distress Eye exam: PRESENT: PERRLA Respiratory exam: PRESENT: clear to auscultation heidi Cardiovascular exam: PRESENT: +S1, +S2 GI/Abdominal exam: PRESENT: soft Results Laboratory Results: 02/21/19 09:05 02/21/19 09:05 02/20/19 02/20/19 02/21/19 21:25 21:25 09:05 WBC 5.7 RBC 2.80 L Hgb 8.0 L Hct 23.6 L MCV 84 MCH 28.7 MCHC 34.1 RDW 21.0 H Plt Count 248 Seg Neutrophils % 63.9 Retic Count (auto) 0.21 L Sodium Potassium Chloride Carbon Dioxide Anion Gap BUN Creatinine Est GFR ( Amer) Glucose Calcium Magnesium Iron 54.5 TIBC 116 L % Saturation 47 Ferritin 560.00 H Vitamin B12 > 1000.0 H Folate 2.96 02/21/19 09:05 WBC RBC Hgb Hct MCV MCH MCHC RDW Plt Count Seg Neutrophils % Retic Count (auto) Sodium 137.0 Potassium 2.8 L* Chloride 93 L Carbon Dioxide 38 H Anion Gap 6 BUN 10 Creatinine 0.73 Est GFR ( Amer) > 60 Glucose 79 Calcium 7.3 L Magnesium 0.9 L* Iron TIBC % Saturation Ferritin Vitamin B12 Folate Impressions: Chest X-Ray 02/20/19 00:00 IMPRESSION: Left central venous catheter, no pneumothorax. Blunted right costophrenic angle could be secondary to pleural fluid. Assessment & Plan - Diagnosis (1) Gastroenteritis Is this a current diagnosis for this admission?: Yes (2) Hypokalemia Is this a current diagnosis for this admission?: Yes Plan: Replace potassium (3) Hypoalbuminemia Is this a current diagnosis for this admission?: Yes - Time Time Spent with patient: 35 or more minutes
[2019-02-21] MEDS: FERROUS SULFATE 325 MG TABLET PO SCH (23:41)
[2019-02-21] MEDS: ATORVASTATIN CALCIUM 40 MG TABLET PO SCH (23:41)
[2019-02-21] MEDS: GABAPENTIN 100 MG CAPSULE PO SCH (23:41)
[2019-02-22] MEDS: 1/2 NORMAL SALINE 1,000 ML IV PRN ×2 (00:51→17:50)
[2019-02-22] MEDS: METRONIDAZOLE 500 MG TABLET PO SCH ×4 (05:57→23:24)
[2019-02-22] MEDS: LEVOTHYROXINE SODIUM 0.075 MG TABLET PO SCH (05:57)
[2019-02-22] MEDS: LUBIPROSTONE 24 MCG CAPSULE PO SCH ×2 (09:18→17:41)
[2019-02-22] MEDS: ASPIRIN 81 MG TABLET, ENT COATED PO SCH (09:19)
[2019-02-22] MEDS: METOPROLOL SUCCINATE 50 MG TAB.SR.24H PO SCH (09:19)
[2019-02-22] MEDS: APIXABAN 5 MG TABLET PO SCH ×2 (09:19→17:49)
[2019-02-22] MEDS: ALLOPURINOL 100 MG TABLET PO SCH (09:19)
[2019-02-22] MEDS: LACOSAMIDE 100 MG TABLET PO SCH ×2 (09:19→21:36)
[2019-02-22] MEDS: CLOBETASOL PROPIONATE 0.05% CREAM 15 GM TP SCH (09:19)
[2019-02-22] MEDS: MAGNESIUM OXIDE 400 MG TABLET PO SCH (09:19)
[2019-02-22] MEDS: LEVETIRACETAM ORAL SOLN 500 MG/5 ML UDCUP PO SCH ×2 (09:19→21:36)
[2019-02-22] MEDS: CHOLECALCIFEROL (D3) 1,000 UNIT (25 MCG) TABLET PO SCH (09:19)
[2019-02-22] MEDS: LACTOBACILLUS ACIDOPHILUS 250 MG TAB PO SCH ×2 (09:19→17:49)
[2019-02-22] MEDS: CINACALCET HCL 30 MG TABLET PO SCH ×2 (09:19→17:49)
[2019-02-22] MEDS: MEGESTROL ACETATE SUSP 400 MG/10 ML UDCUP PO SCH (09:19)
[2019-02-22] MEDS: AMLODIPINE BESYLATE 10 MG TABLET PO SCH (09:19)
[2019-02-22 14:44] LABS: ABSOLUTE EOSINOPHILS # (AUTO) 0.2 10^3/uL (0.0-0.6); ABSOLUTE LYMPHOCYTES (AUTO) 1.7 10^3/uL (0.5-4.7); ABSOLUTE MONOCYTES (AUTO) 0.4 10^3/uL (0.1-1.4); ABSOLUTE NEUT (AUTO) 3.5 10^3/uL (1.7-8.2); BASOPHILS % (AUTO) 0.7 % (0-2); EOSINOPHILS % (AUTO) 3.7 % (0-6); HEMATOCRIT 23.7 % (36.0-47.0); LYMPHOCYTES % (AUTO) 28.7 % (13-45); MEAN CORPUSCULAR HEMOGLOBIN 28.5 pg (27.0-33.4); MEAN CORPUSCULAR HGB CONC 33.6 g/dL (32.0-36.0); MEAN CORPUSCULAR VOLUME 85 fl (80-97); MONOCYTES % (AUTO) 7.1 % (3-13); PLATELET COUNT 246 10^3/uL (150-450); RED BLOOD COUNT 2.79 10^6/uL (3.72-5.28); RED CELL DISTRIBUTION WIDTH 21.2 % (11.5-14.0); SEGMENTED NEUTROPHILS % (AUTO) 59.8 % (42-78); TOTAL CELLS COUNTED % (AUTO) 100 %; WHITE BLOOD COUNT 5.9 10^3/uL (4.0-10.5)
[2019-02-22 15:04] LABS: ANISOCYTOSIS 3+; BLOOD UREA NITROGEN 10 mg/dL (7-20); CHLORIDE 92 mmol/L (98-107); GLUCOSE 78 mg/dL (75-110); PLATELET COMMENT ADEQUATE; POIKILOCYTOSIS SLIGHT; POTASSIUM 3.3 mmol/L (3.6-5.0); SCHISTOCYTES SLIGHT; TARGET CELLS 2+
[2019-02-22 15:10] LABS: CARBON DIOXIDE 39 mmol/L (22-30)
[2019-02-22 15:14] LABS: ANION GAP 1 (5-19)
[2019-02-22] MEDS ORDERED: CALCIUM GLUCONATE 1000 MG/10 ML INJ IV ONE (17:00)
[2019-02-22] MEDS ORDERED: POTASSI CL 20 MEQ/50 ML RIDER 20 MEQ/50 ML RTUPB IV ONE (20:46)
--- NOTE | 2019-02-22 20:56 | PDOC PROGRESS REPORT ---
Subjective Progress Note for:: 02/22/19 Subjective:: Patient continues to have diarrhea with electrolyte derangement. She has not had colonoscopy for a long while, consultation will be requested from surgery for colonoscopy Reason For Visit: ANEMIA,VOMITING, ACUTE CKD Physical Exam Vital Signs: Temp Pulse Resp BP Pulse Ox 98.2 F 71 16 116/54 L 97 02/22/19 16:46 02/22/19 19:00 02/22/19 16:46 02/22/19 16:46 02/22/19 16:46 Intake & Output 02/21/19 02/22/19 02/23/19 06:59 06:59 06:59 Intake Total 492 2705 1050 Output Total 80 305 120 Balance 412 2400 930 Weight 92.8 kg 94.2 kg General appearance: PRESENT: no acute distress Eye exam: PRESENT: PERRLA Respiratory exam: PRESENT: clear to auscultation heidi Cardiovascular exam: PRESENT: +S1, +S2 GI/Abdominal exam: PRESENT: soft Neurological exam: PRESENT: alert, CN II-XII grossly intact Results Laboratory Results: 02/22/19 14:20 02/22/19 14:20 02/22/19 02/22/19 14:20 14:20 WBC 5.9 RBC 2.79 L Hgb 8.0 L Hct 23.7 L MCV 85 MCH 28.5 MCHC 33.6 RDW 21.2 H Plt Count 246 Seg Neutrophils % 59.8 Sodium 132.0 L Potassium 3.3 L Chloride 92 L Carbon Dioxide 39 H Anion Gap 1 L BUN 10 Creatinine 0.87 Est GFR ( Amer) > 60 Glucose 78 Calcium 7.0 L* Magnesium 1.2 L* 02/20/19 20:40 Calloway Catheter Urine Culture - Final NO GROWTH 2 DAYS Impressions: Chest X-Ray 02/20/19 00:00 IMPRESSION: Left central venous catheter, no pneumothorax. Blunted right costophrenic angle could be secondary to pleural fluid. Assessment & Plan - Diagnosis (1) Gastroenteritis Is this a current diagnosis for this admission?: Yes (2) Hypokalemia Is this a current diagnosis for this admission?: Yes (3) Hypoalbuminemia Is this a current diagnosis for this admission?: Yes (4) Hypomagnesemia Is this a current diagnosis for this admission?: Yes (5) Hypocalcemia Is this a current diagnosis for this admission?: Yes - Time Time Spent with patient: 35 or more minutes - Plan Summary Plan Summary: Replace electrolytes, consult surgery for colonoscopy
[2019-02-22] MEDS: FERROUS SULFATE 325 MG TABLET PO SCH (21:36)
[2019-02-22] MEDS: ATORVASTATIN CALCIUM 40 MG TABLET PO SCH (21:36)
[2019-02-22] MEDS: GABAPENTIN 100 MG CAPSULE PO SCH (21:36)
[2019-02-22] MEDS: ACETAMINOPHEN 325 MG TABLET PO PRN (23:24)
[2019-02-23] MEDS: LEVOTHYROXINE SODIUM 0.075 MG TABLET PO SCH (05:52)
[2019-02-23] MEDS: METRONIDAZOLE 500 MG TABLET PO SCH ×3 (05:52→17:30)
[2019-02-23] MEDS: 1/2 NORMAL SALINE 1,000 ML IV PRN (09:02)
[2019-02-23] MEDS: CHOLECALCIFEROL (D3) 1,000 UNIT (25 MCG) TABLET PO SCH (09:14)
[2019-02-23] MEDS: METOPROLOL SUCCINATE 50 MG TAB.SR.24H PO SCH (09:14)
[2019-02-23] MEDS: MAGNESIUM OXIDE 400 MG TABLET PO SCH (09:14)
[2019-02-23] MEDS: ASPIRIN 81 MG TABLET, ENT COATED PO SCH (09:14)
[2019-02-23] MEDS: APIXABAN 5 MG TABLET PO SCH ×2 (09:14→19:00)
[2019-02-23] MEDS: ALLOPURINOL 100 MG TABLET PO SCH (09:14)
[2019-02-23] MEDS: LACTOBACILLUS ACIDOPHILUS 250 MG TAB PO SCH ×2 (09:14→17:30)
[2019-02-23] MEDS: LACOSAMIDE 100 MG TABLET PO SCH ×2 (09:14→21:50)
[2019-02-23] MEDS: AMLODIPINE BESYLATE 10 MG TABLET PO SCH (09:15)
[2019-02-23] MEDS: MEGESTROL ACETATE SUSP 400 MG/10 ML UDCUP PO SCH (09:15)
[2019-02-23] MEDS: CLOBETASOL PROPIONATE 0.05% CREAM 15 GM TP SCH (09:15)
[2019-02-23] MEDS: LUBIPROSTONE 24 MCG CAPSULE PO SCH ×2 (09:18→17:31)
[2019-02-23] MEDS: LEVETIRACETAM ORAL SOLN 500 MG/5 ML UDCUP PO SCH ×2 (09:18→21:49)
[2019-02-23] MEDS: CINACALCET HCL 30 MG TABLET PO SCH ×2 (09:18→17:30)
[2019-02-23] MEDS ORDERED: BISACODYL 5 MG TABEC PO ONE (09:51)
[2019-02-23] MEDS ORDERED: DEXTROSE 40% GEL 15 GM TUBE PO PRN ×2 (09:56)
[2019-02-23] MEDS ORDERED: GLUCAGON,HUMAN RECOMB 1 MG INJ SUBCUT PRN (09:56)
[2019-02-23] MEDS ORDERED: DEXTROSE 50%-WATER 25 GM/50 ML DISP.SYRIN IV PRN ×2 (09:56)
[2019-02-23] MEDS ORDERED: MAGNESIUM CITRATE 296 ML BOTTLE PO SCH (10:00)
--- NOTE | 2019-02-23 10:13 | PDOC CONSULTATION ---
Consultation Consult Date: 02/23/19 Provider Consulted: PAT WHALEN Consult reason:: Nausea, vomiting, dysphagia, and diarrhea History of Present Illness Admission Date/PCP: 02/20/19 16:52 MARY RASHID MD History of Present Illness: Patient is an elderly 78-year-old female admitted for nausea, vomiting, dysphagia, and diarrhea. Her symptoms of diarrhea and dysphasia have improved. Addition, she has been found to be anemic with an H&H of 8 and 23, respectively. The patient has not had a colonoscopy for several years. I been consulted to perform an upper and lower endoscopy on this patient. During the hospitalization, the patient has developed multiple electrolyte abnormalities (potassium, magnesium, and calcium). Past Medical History Cardiac Medical History: Reports: Hyperlipidema, Hypertension, Pulmonary Embolism - 2 blood clots in her lungs a few years ago Denies: Atrial Fibrillation, Congestive Heart Failure, Coronary Artery Disease, Myocardial Infarction, Peripheral Vascular Disease, Heart Murmur Pulmonary Medical History: Reports: Bronchitis Denies: Asthma, Chronic Obstructive Pulmonary Disease (COPD), Pneumonia, Respiratory Failure, Sleep Apnea, Tuberculosis Neurological Medical History: Denies: Seizures Endocrine Medical History: Reports: Hypothyroidism Renal/ Medical History: Denies: End Stage Renal Disease Malignancy Medical History: Denies: Leukemia, Lung Cancer GI Medical History: Denies: Hepatitis, Hiatal Hernia Musculoskeltal Medical History: Reports: Arthritis, Gout Denies: Fibromyalgia Psychiatric Medical History: Reports: Depression Hematology: Reports: Anemia Denies: Hemophilia, Sickle Cell Disease Infectious Medical History: Denies: HIV Past Surgical History Past Surgical History: Reports: Orthopedic Surgery - R knee replacement Denies: Amputation, Appendectomy, Section, Cholecystectomy, Coronary Artery Bypass Graft, Gastric Bypass Surgery, Herniorrhaphy, Hysterectomy, Mastec charanjit, Pacemaker, Tonsillectomy, Tubal Ligation Social History Smoking Status: Former Smoker Electronic Cigarette use?: No Frequency of Alcohol Use: None Hx Recreational Drug Use: No Drugs: None Hx Prescription Drug Abuse: No Family History Family History: Reviewed & Not Pertinent Parental Family History Reviewed: No Children Family History Reviewed: No Sibling(s) Family History Reviewed.: No Medication/Allergy Home Medications: Allopurinol [Zyloprim 100 mg Tablet] 100 mg PO DAILY 02/20/19 Amlodipine Besylate [Norvasc 10 mg Tablet] 10 mg PO DAILY 02/20/19 Apixaban [Eliquis 5 mg Tablet] 5 mg PO BID 02/20/19 Aspirin [Ecotrin 81 mg EC Tablet] 81 mg PO DAILY 02/20/19 Atorvastatin Calcium [Lipitor 40 mg Tablet] 40 mg PO QHS 02/20/19 Cholecalciferol (Vitamin D3) [Vitamin D3 1000 Unit Tablet] 2,000 unit PO DAILY 02/20/19 Cinacalcet HCl [Sensipar 30 Mg Tablet] 30 mg PO BID 02/20/19 Clobetasol Propionate [Temovate 0.05% Cream 15 Gm] 1 applic TP DAILY 02/20/19 Ferrous Sulfate [Feosol 325 mg Tablet] 325 mg PO QHS 02/20/19 Gabapentin [Neurontin 100 mg Capsule] 200 mg PO QHS 02/20/19 L.acidoph/L.bulg/B.bif/S.therm [Bacid Caplet] 2 each PO BID 02/20/19 Lacosamide [Vimpat 100 mg Tablet] 100 mg PO Q12 02/20/19 Levetiracetam 1,000 mg PO Q12 02/20/19 Levothyroxine Sodium [Synthroid 0.075 mg Tablet] 0.075 mg PO Q6AM 02/20/19 Lubiprostone [Amitiza 24 Mcg Capsule] 24 mcg PO BID 02/20/19 Magnesium Oxide [Mag-Ox 400 mg Tablet] 400 mg PO DAILY 02/20/19 Megestrol Acetate [Megace [place] 400 mg/10 ml Udcup] 400 mg PO DAILY 02/20/19 Metoprolol Succinate [Toprol Xl 50 mg Tab.sr] 50 mg PO DAILY 02/20/19 Metronidazole [Flagyl 500 mg Tablet] 500 mg PO Q6 02/20/19 Ondansetron HCl [Zofran 8 mg Tablet] 8 mg PO Q4HP PRN 02/20/19 Allergies/Adverse Reactions: steriods Allergy (Uncoded 08/10/18 12:33) steroids Adverse Reaction (Intermediate, Uncoded 08/10/18 12:33) Physical Exam Vital Signs: Temp Pulse Resp BP Pulse Ox 98.2 F 64 18 125/58 L 96 02/23/19 03:14 02/23/19 07:00 02/23/19 03:14 02/23/19 03:14 02/23/19 03:14 Intake & Output 02/22/19 02/23/19 02/24/19 06:59 06:59 06:59 Intake Total 2705 1100 1000 Output Total 305 622 Balance 2400 478 1000 Weight 94.2 kg 97.3 kg General appearance: PRESENT: no acute distress, obese, well-developed Eye exam: PRESENT: EOMI Mouth exam: PRESENT: moist, neck supple Teeth exam: PRESENT: edentulous Neck exam: PRESENT: full ROM Respiratory exam: PRESENT: clear to auscultation heidi Cardiovascular exam: PRESENT: RRR GI/Abdominal exam: PRESENT: normal bowel sounds, soft Rectal exam: PRESENT: deferred Extremities exam: PRESENT: full ROM Musculoskeletal exam: PRESENT: full ROM Neurological exam: PRESENT: alert, oriented to person, oriented to place Psychiatric exam: PRESENT: appropriate affect Skin exam: PRESENT: warm Results Laboratory Results: 02/22/19 14:20 02/22/19 14:20 02/22/19 02/22/19 14:20 14:20 WBC 5.9 RBC 2.79 L Hgb 8.0 L Hct 23.7 L MCV 85 MCH 28.5 MCHC 33.6 RDW 21.2 H Plt Count 246 Seg Neutrophils % 59.8 Sodium 132.0 L Potassium 3.3 L Chloride 92 L Carbon Dioxide 39 H Anion Gap 1 L BUN 10 Creatinine 0.87 Est GFR ( Amer) > 60 Glucose 78 Calcium 7.0 L* Magnesium 1.2 L* 02/20/19 20:40 Calloway Catheter Urine Culture - Final NO GROWTH 2 DAYS Impressions: Chest X-Ray 02/20/19 00:00 IMPRESSION: Left central venous catheter, no pneumothorax. Blunted right costophrenic angle could be secondary to pleural fluid. Assessment & Plan - Diagnosis (1) Need for intravenous access Is this a current diagnosis for this admission?: Yes (3) Dysphagia Qualifiers: Dysphagia type: esophageal phase Qualified Code(s): R13.10 - Dysphagia, unspecified Is this a current diagnosis for this admission?: Yes (4) Gastroenteritis Is this a current diagnosis for this admission?: Yes - Plan Summary Plan Summary: Assessment: History of nausea vomiting diarrhea as per gastroenteritis Anemia (hemoglobin hematocrit 8/23, respectively) Dysphasia with patient having difficulty swallowing in the upper chest Plan: Replace potassium, magnesium, calcium and electrolytes Once the electrolytes have been repleted in the right is normal, bowel prep can be started Mag citrate Dulcolax bowel prep will be appropriate in this patient Please call us back when the electrolytes have normal values so we can schedule the patient for upper and lower endoscopy
[2019-02-23 11:50] LABS: ANION GAP 7 (5-19); BLOOD UREA NITROGEN 10 mg/dL (7-20); CARBON DIOXIDE 32 mmol/L (22-30); CHLORIDE 95 mmol/L (98-107); GLUCOSE 84 mg/dL (75-110); POTASSIUM 3.6 mmol/L (3.6-5.0)
[2019-02-23] MEDS: POTASSI CL 40 MEQ/NS 1L 1,000 ML IV PRN (16:25)
[2019-02-23 18:56] LABS: ALKALINE PHOSPHATASE 93 U/L (38-126); ANION GAP 6 (5-19); ASPARTATE AMINO TRANSFERASE 32 U/L (14-36); BILIRUBIN,DIRECT 0.2 mg/dL (0.0-0.4); BILIRUBIN,TOTAL 0.5 mg/dL (0.2-1.3); BLOOD UREA NITROGEN 10 mg/dL (7-20); CARBON DIOXIDE 33 mmol/L (22-30); CHLORIDE 92 mmol/L (98-107); GLUCOSE 83 mg/dL (75-110); POTASSIUM 3.5 mmol/L (3.6-5.0); TOTAL PROTEIN 4.9 g/dL (6.3-8.2)
[2019-02-23 18:58] LABS: CALCIUM 6.9 mg/dL (8.4-10.2)
--- NOTE | 2019-02-23 20:12 | PDOC PROGRESS REPORT ---
Subjective Progress Note for:: 02/23/19 Subjective:: Patient seen by the bedside she has electrolyte derangement including hypocalcemia, hypokalemia, hypomagnesemia. With reduced intake, consultation was requested from surgery for colonoscopy because of the diarrhea. She was diagnosed previously in [place] with primary hyperparathyroidism and she was prescribed Sensipar, the persistent hypocalcemia could be related to the Sensipar, the Sensipar will be discontinued, corrected calcium for albumin is about 8 Reason For Visit: ANEMIA,VOMITING, ACUTE CKD Physical Exam Vital Signs: Temp Pulse Resp BP Pulse Ox 98.4 F 76 16 115/48 L 96 02/23/19 14:47 02/23/19 14:47 02/23/19 14:47 02/23/19 14:47 02/23/19 14:47 Intake & Output 02/22/19 02/23/19 02/24/19 06:59 06:59 06:59 Intake Total 2705 1100 1360 Output Total 305 622 Balance 2400 478 1360 Weight 94.2 kg 97.3 kg Results Laboratory Results: 02/22/19 14:20 02/23/19 18:19 02/23/19 02/23/19 02/23/19 11:03 11:03 18:19 Sodium 134.2 L 130.5 L Potassium 3.6 3.5 L Chloride 95 L 92 L Carbon Dioxide 32 H 33 H Anion Gap 7 6 BUN 10 10 Creatinine 0.86 0.92 Est GFR ( Amer) > 60 > 60 Glucose 84 83 Calcium 7.0 L* 6.9 L* Magnesium 1.0 L* Total Bilirubin 0.5 AST 32 Alkaline Phosphatase 93 Total Protein 4.9 L Albumin 2.0 L Impressions: Chest X-Ray 02/20/19 00:00 IMPRESSION: Left central venous catheter, no pneumothorax. Blunted right costophrenic angle could be secondary to pleural fluid. Assessment & Plan - Diagnosis (1) Gastroenteritis Is this a current diagnosis for this admission?: Yes (2) Hypokalemia Is this a current diagnosis for this admission?: Yes Plan: Correct potassium (3) Hypoalbuminemia Is this a current diagnosis for this admission?: Yes (4) Hypomagnesemia Is this a current diagnosis for this admission?: Yes Plan: Correct magnesium (5) Hypocalcemia Is this a current diagnosis for this admission?: Yes Plan: The corrected calcium for albumin is about 8, discontinue Sensipar that could be a factor in the persistent hypocalcemia - Time Time Spent with patient: 35 or more minutes Level of Care: IMCU
[2019-02-23] MEDS: MAGNESIUM SULFATE/D5W 1 GM/100 ML RTUPB IV SCH ×2 (20:48→21:49)
[2019-02-23] MEDS: GABAPENTIN 100 MG CAPSULE PO SCH (21:50)
[2019-02-23] MEDS: FERROUS SULFATE 325 MG TABLET PO SCH ×2 (21:50→22:11)
[2019-02-23] MEDS: ONDANSETRON HCL 8 MG TABLET PO PRN (21:50)
[2019-02-23] MEDS: ACETAMINOPHEN 325 MG TABLET PO PRN (21:50)
[2019-02-23] MEDS: ATORVASTATIN CALCIUM 40 MG TABLET PO SCH (21:50)
[2019-02-24] MEDS: METRONIDAZOLE 500 MG TABLET PO SCH ×3 (00:05→14:03)
[2019-02-24] MEDS: LEVOTHYROXINE SODIUM 0.075 MG TABLET PO SCH (05:52)
[2019-02-24 06:46] LABS: ANION GAP 5 (5-19); BLOOD UREA NITROGEN 11 mg/dL (7-20); GLUCOSE 77 mg/dL (75-110); POTASSIUM 3.9 mmol/L (3.6-5.0)
[2019-02-24 06:51] LABS: CARBON DIOXIDE 31 mmol/L (22-30); CHLORIDE 98 mmol/L (98-107)
[2019-02-24] MEDS: POTASSI CL 40 MEQ/NS 1L 1,000 ML IV PRN (06:54)
[2019-02-24 06:56] LABS: CALCIUM 6.8 mg/dL (8.4-10.2)
[2019-02-24] MEDS: MEGESTROL ACETATE SUSP 400 MG/10 ML UDCUP PO SCH (09:43)
[2019-02-24] MEDS: APIXABAN 5 MG TABLET PO SCH ×2 (09:43→17:52)
[2019-02-24] MEDS: ASPIRIN 81 MG TABLET, ENT COATED PO SCH (09:43)
[2019-02-24] MEDS: LUBIPROSTONE 24 MCG CAPSULE PO SCH ×2 (09:43→17:56)
[2019-02-24] MEDS: LACTOBACILLUS ACIDOPHILUS 250 MG TAB PO SCH ×2 (09:43→17:56)
[2019-02-24] MEDS: LEVETIRACETAM ORAL SOLN 500 MG/5 ML UDCUP PO SCH ×2 (09:43→22:40)
[2019-02-24] MEDS: AMLODIPINE BESYLATE 10 MG TABLET PO SCH (09:43)
[2019-02-24] MEDS: METOPROLOL SUCCINATE 50 MG TAB.SR.24H PO SCH (09:43)
[2019-02-24] MEDS: MAGNESIUM OXIDE 400 MG TABLET PO SCH (09:43)
[2019-02-24] MEDS: ALLOPURINOL 100 MG TABLET PO SCH (09:44)
[2019-02-24] MEDS: LACOSAMIDE 100 MG TABLET PO SCH ×2 (09:44→22:47)
[2019-02-24] MEDS: CHOLECALCIFEROL (D3) 1,000 UNIT (25 MCG) TABLET PO SCH (09:44)
[2019-02-24] MEDS: CLOBETASOL PROPIONATE 0.05% CREAM 15 GM TP SCH (17:56)
[2019-02-24] MEDS: MAGNESIUM SULFATE/D5W 1 GM/100 ML RTUPB IV SCH ×2 (18:58→20:26)
--- NOTE | 2019-02-24 20:51 | PDOC PROGRESS REPORT ---
Subjective Progress Note for:: 02/24/19 Subjective:: She has nausea, not keeping any food down, this probably from use of Flagyl Reason For Visit: ANEMIA,VOMITING, ACUTE CKD Physical Exam Vital Signs: Temp Pulse Resp BP Pulse Ox 97.5 F 77 18 116/45 L 98 02/24/19 14:44 02/24/19 14:44 02/24/19 14:44 02/24/19 14:44 02/24/19 14:44 Intake & Output 02/23/19 02/24/19 02/25/19 06:59 06:59 06:59 Intake Total 1100 2610 460 Output Total 622 330 Balance 478 2280 460 Weight 97.3 kg 96.8 kg 96.8 kg General appearance: PRESENT: no acute distress Eye exam: PRESENT: PERRLA Respiratory exam: PRESENT: clear to auscultation heidi Cardiovascular exam: PRESENT: +S1, +S2 GI/Abdominal exam: PRESENT: soft Results Laboratory Results: 02/22/19 14:20 02/24/19 05:58 02/24/19 02/24/19 05:58 05:58 Sodium 133.8 L Potassium 3.9 Chloride 98 Carbon Dioxide 31 H Anion Gap 5 BUN 11 Creatinine 0.86 Est GFR ( Amer) > 60 Glucose 77 Calcium 6.8 L* Magnesium 1.5 L Impressions: Chest X-Ray 02/20/19 00:00 IMPRESSION: Left central venous catheter, no pneumothorax. Blunted right costophrenic angle could be secondary to pleural fluid. Assessment & Plan - Diagnosis (1) Gastroenteritis Is this a current diagnosis for this admission?: Yes (2) Hypokalemia Is this a current diagnosis for this admission?: Yes (3) Hypoalbuminemia Is this a current diagnosis for this admission?: Yes (4) Hypomagnesemia Is this a current diagnosis for this admission?: Yes (5) Hypocalcemia Is this a current diagnosis for this admission?: Yes - Time Time Spent with patient: 35 or more minutes Level of Care: IMCU - Plan Summary Plan Summary: Continue IV fluids, discontinue Flagyl, continue to encourage fluid intake
[2019-02-24] MEDS: ATORVASTATIN CALCIUM 40 MG TABLET PO SCH (22:40)
[2019-02-24] MEDS: FERROUS SULFATE 325 MG TABLET PO SCH (22:40)
[2019-02-24] MEDS: GABAPENTIN 100 MG CAPSULE PO SCH (22:40)
[2019-02-25] MEDS: POTASSI CL 40 MEQ/NS 1L 1,000 ML IV PRN ×2 (00:38→18:10)
[2019-02-25] MEDS: LEVOTHYROXINE SODIUM 0.075 MG TABLET PO SCH (05:44)
[2019-02-25 07:14] LABS: ANION GAP 7 (5-19); BLOOD UREA NITROGEN 10 mg/dL (7-20); CARBON DIOXIDE 27 mmol/L (22-30); CHLORIDE 101 mmol/L (98-107); GLUCOSE 77 mg/dL (75-110); POTASSIUM 4.8 mmol/L (3.6-5.0)
[2019-02-25 07:32] LABS: CALCIUM 6.9 mg/dL (8.4-10.2)
--- NOTE | 2019-02-25 09:42 | PDOC PROGRESS REPORT ---
Subjective Progress Note for:: 02/25/19 Subjective:: Patient still having loose stools, electrolyte abnormalities. Reason For Visit: ANEMIA,VOMITING, ACUTE CKD Physical Exam Vital Signs: Temp Pulse Resp BP Pulse Ox 98.0 F 92 16 118/63 100 02/25/19 08:10 02/25/19 08:10 02/25/19 08:10 02/25/19 08:10 02/25/19 08:10 Intake & Output 02/24/19 02/25/19 02/26/19 06:59 06:59 06:59 Intake Total 2610 1510 100 Output Total 330 550 Balance 2280 960 100 Weight 96.8 kg 104.2 kg General appearance: PRESENT: no acute distress GI/Abdominal exam: PRESENT: other - Abdomen is benign. Results Laboratory Results: 02/22/19 14:20 02/25/19 06:32 02/25/19 06:32 Sodium 135.4 L Potassium 4.8 Chloride 101 Carbon Dioxide 27 Anion Gap 7 BUN 10 Creatinine 0.97 Est GFR ( Amer) > 60 Glucose 77 Calcium 6.9 L* Impressions: Chest X-Ray 02/20/19 00:00 IMPRESSION: Left central venous catheter, no pneumothorax. Blunted right costophrenic angle could be secondary to pleural fluid. Assessment & Plan - Diagnosis (1) Nausea vomiting and diarrhea Is this a current diagnosis for this admission?: Yes Plan: Impression: Slight clinical improvement but unresolved gastroenteritis; C. difficile toxins negative; remains hypomagnesemic Recommendations: 1. Continue medical support, IV fluids electrolyte replacement 2. Will sign off until medical issues stabilized; reconsult surgery or gastroenterology when patient felt to be stable for upper and/or lower endoscopic evaluation. (2) Gastroenteritis Is this a current diagnosis for this admission?: Yes (3) Hypocalcemia Is this a current diagnosis for this admission?: Yes (4) Hypokalemia Is this a current diagnosis for this admission?: Yes - Time Time Spent with patient: Less than 15 minutes
[2019-02-25] MEDS: LUBIPROSTONE 24 MCG CAPSULE PO SCH ×2 (11:11→18:09)
[2019-02-25] MEDS: LACTOBACILLUS ACIDOPHILUS 250 MG TAB PO SCH ×2 (11:11→18:09)
[2019-02-25] MEDS: AMLODIPINE BESYLATE 10 MG TABLET PO SCH (11:12)
[2019-02-25] MEDS: METOPROLOL SUCCINATE 50 MG TAB.SR.24H PO SCH (11:12)
[2019-02-25] MEDS: ASPIRIN 81 MG TABLET, ENT COATED PO SCH (11:12)
[2019-02-25] MEDS: MEGESTROL ACETATE SUSP 400 MG/10 ML UDCUP PO SCH (11:12)
[2019-02-25] MEDS: MAGNESIUM OXIDE 400 MG TABLET PO SCH (11:12)
[2019-02-25] MEDS: APIXABAN 5 MG TABLET PO SCH ×2 (11:12→18:05)
[2019-02-25] MEDS: LEVETIRACETAM ORAL SOLN 500 MG/5 ML UDCUP PO SCH ×2 (11:12→22:42)
[2019-02-25] MEDS: LACOSAMIDE 100 MG TABLET PO SCH ×2 (11:13→22:42)
[2019-02-25] MEDS: CHOLECALCIFEROL (D3) 1,000 UNIT (25 MCG) TABLET PO SCH (11:13)
[2019-02-25] MEDS: ALLOPURINOL 100 MG TABLET PO SCH (11:13)
[2019-02-25] MEDS ORDERED: ONDANSETRON HCL INJ/PF 4 MG/2 ML SDV IV PRN (12:14)
--- NOTE | 2019-02-25 14:25 | PDOC PROGRESS REPORT ---
Subjective Progress Note for:: 02/25/19 Subjective:: Patient seen by the bedside, the corrected calcium for albumin is 8.5, she continues to have vomiting, diarrhea, consultation was requested from surgery for colonoscopy, the electrolytes are replaced patient ready for colonoscopy. Reason For Visit: ANEMIA,VOMITING, ACUTE CKD Physical Exam Vital Signs: Temp Pulse Resp BP Pulse Ox 98.0 F 107 H 16 101/51 L 97 02/25/19 11:51 02/25/19 11:51 02/25/19 11:51 02/25/19 11:51 02/25/19 11:51 Intake & Output 02/24/19 02/25/19 02/26/19 06:59 06:59 06:59 Intake Total 2610 1510 100 Output Total 330 550 Balance 2280 960 100 Weight 96.8 kg 104.2 kg General appearance: PRESENT: no acute distress Eye exam: PRESENT: PERRLA Respiratory exam: PRESENT: clear to auscultation heidi Cardiovascular exam: PRESENT: +S1, +S2 GI/Abdominal exam: PRESENT: soft Results Laboratory Results: 02/22/19 14:20 02/25/19 06:32 02/25/19 02/25/19 06:32 06:32 Sodium 135.4 L Potassium 4.8 Chloride 101 Carbon Dioxide 27 Anion Gap 7 BUN 10 Creatinine 0.97 Est GFR ( Amer) > 60 Glucose 77 Calcium 6.9 L* Magnesium 1.7 Impressions: Chest X-Ray 02/20/19 00:00 IMPRESSION: Left central venous catheter, no pneumothorax. Blunted right costophrenic angle could be secondary to pleural fluid. Assessment & Plan - Diagnosis (1) Gastroenteritis Is this a current diagnosis for this admission?: Yes (2) Hypokalemia Is this a current diagnosis for this admission?: Yes (3) Hypoalbuminemia Is this a current diagnosis for this admission?: Yes (4) Hypomagnesemia Is this a current diagnosis for this admission?: Yes (5) Hypocalcemia Is this a current diagnosis for this admission?: Yes (6) Diarrhea Qualifiers: Diarrhea type: unspecified type Qualified Code(s): R19.7 - Diarrhea, unspecified Is this a current diagnosis for this admission?: Yes Plan: Patient is ready to have colonoscopy, the surgeons want patient electrolytes corrected before they proceed with colonoscopy. The corrected calcium for albumin is 8.5 which is normal - Time Time Spent with patient: 35 or more minutes
[2019-02-25] MEDS ORDERED: PEG 3350/NA SULF,BICARB,CL/KCL 4000 ML PO PRN (17:00)
[2019-02-25] MEDS: CLOBETASOL PROPIONATE 0.05% CREAM 15 GM TP SCH (18:09)
[2019-02-25] MEDS: FERROUS SULFATE 325 MG TABLET PO SCH (22:40)
[2019-02-25] MEDS: GABAPENTIN 100 MG CAPSULE PO SCH (22:42)
[2019-02-25] MEDS: ATORVASTATIN CALCIUM 40 MG TABLET PO SCH (22:42)
[2019-02-26] MEDS: LEVOTHYROXINE SODIUM 0.075 MG TABLET PO SCH (05:27)
[2019-02-26 06:45] LABS: ANION GAP 8 (5-19); BLOOD UREA NITROGEN 10 mg/dL (7-20); CARBON DIOXIDE 23 mmol/L (22-30); CHLORIDE 105 mmol/L (98-107); GLUCOSE 73 mg/dL (75-110); POTASSIUM 5.3 mmol/L (3.6-5.0)
[2019-02-26 07:42] LABS: ANION GAP 8 (5-19); BLOOD UREA NITROGEN 9 mg/dL (7-20); CALCIUM 7.1 mg/dL (8.4-10.2); CARBON DIOXIDE 23 mmol/L (22-30); CHLORIDE 105 mmol/L (98-107); GLUCOSE 74 mg/dL (75-110); POTASSIUM 5.3 mmol/L (3.6-5.0)
[2019-02-26] MEDS ORDERED: MIDAZOLAM 2 MG/2 ML INJ ONE (09:11)
[2019-02-26] MEDS ORDERED: NALOXONE HCL INJ/PF 0.4 MG/1 ML SDV ONE (09:11)
[2019-02-26] MEDS ORDERED: DIPHENHYDRAMINE HCL 50 MG/ML VIAL ONE (09:11)
[2019-02-26] MEDS ORDERED: FENTANYL CITRATE INJ/PF 100 MCG/2 ML AMPUL ONE (09:11)
[2019-02-26] MEDS ORDERED: ONDANSETRON HCL INJ/PF 4 MG/2 ML SDV ONE (09:11)
[2019-02-26] MEDS ORDERED: GLUCAGON,HUMAN RECOMB 1 MG INJ ONE (09:12)
[2019-02-26] MEDS ORDERED: FLUMAZENIL INJ 0.5 MG/5 ML VIAL ONE (09:12)
[2019-02-26] MEDS ORDERED: EPINEPHRINE INJ 1 MG/10 ML DISP.SYRIN ONE (09:12)
[2019-02-26] MEDS ORDERED: PROMETHAZINE HCL INJ 25 MG/1 ML VIAL ONE (09:39)
--- NOTE | 2019-02-26 10:12 | Operative Report ---
Operative Report DATE OF SURGERY: 02/26/19 PREOPERATIVE DIAGNOSIS: 1. Blood loss anemia. 2. Electrolyte abnormalities POSTOPERATIVE DIAGNOSIS: Same with. 1. Hiatal hernia. 2. Diffuse, mild gastritis. 3. Superficial ulcers of the gastric antrum. 4. Formation of the pyloric channel OPERATION: 1. Esophagogastroduodenoscopy. 2. Cold forceps biopsy of pyloric channel mucosa SURGEON: DARSHAN BREWSTER ANESTHESIA: Moderate Sedation TISSUE REMOVED OR ALTERED: Mucosal biopsies of pyloric channel COMPLICATIONS: None ESTIMATED BLOOD LOSS: Scant INTRAOPERATIVE FINDINGS: See below PROCEDURE: Patient was taken from the third floor to the endoscopy suite where monitoring devices were attached. She is placed in the left lateral semi-recumbent position. Of note the patient was tachycardic to the 130s; she was soft-spoken however awake and alert and followed simple commands. Appropriate level of conscious sedation induced with one milligram of Versed and 25 mcg of fentanyl. Surgical plan surgical timeout conducted. With mouthpiece inserted, the flexible adult upper endoscope was advanced through the oropharynx down the esophagus through the stomach and into the first and second portions of the duodenum. This is well-tolerated by the patient. There was mild proximal duodenitis, but no ulceration. No biopsies taken. There is no evidence of bleeding stricture or tumor. In the pylorus there were superficial mucosal ulcers. Photo taken and a superficial mucosal biopsy obtained of Alfa. This was sent for histologic analysis as well as ASHLEY testing. The remainder of the stomach was significant for mild gastritis with small flecks of old blood. There was no active bleeding, significant clots, or notable ulcers. The scope was retroflexed in the stomach with a good look at the GE junction; there was a small to moderate sized hiatal hernia. Photo taken. The scope was brought back to the GE junction. There is no evidence of tumor stricture bleeding or varix in the esophagus. The scope was withdrawn the patient's oropharynx. She tolerated procedure well. Her heart rate after the procedure was down in the low 120s. Impression: Superficial gastric antral and pylorus ulcers, status post mucosal biopsy Discussion and recommendations: 1. Upper endoscopic findings may be responsible for loss anemia; no active bleeding or clots identified 2. Suggest proceeding with colonoscopy tomorrow if patient can complete her bowel prep.
[2019-02-26] MEDS: LEVETIRACETAM ORAL SOLN 500 MG/5 ML UDCUP PO SCH ×2 (11:26→22:58)
[2019-02-26] MEDS: METOPROLOL SUCCINATE 50 MG TAB.SR.24H PO SCH (11:27)
[2019-02-26] MEDS: CLOBETASOL PROPIONATE 0.05% CREAM 15 GM TP SCH (11:27)
[2019-02-26] MEDS: LACOSAMIDE 100 MG TABLET PO SCH ×2 (11:27→23:00)
[2019-02-26] MEDS: LACTOBACILLUS ACIDOPHILUS 250 MG TAB PO SCH ×2 (11:33→18:07)
[2019-02-26] MEDS: MAGNESIUM OXIDE 400 MG TABLET PO SCH (11:33)
[2019-02-26] MEDS: ASPIRIN 81 MG TABLET, ENT COATED PO SCH (11:33)
[2019-02-26] MEDS: LUBIPROSTONE 24 MCG CAPSULE PO SCH ×2 (11:33→18:07)
[2019-02-26] MEDS: APIXABAN 5 MG TABLET PO SCH ×2 (11:33→18:07)
[2019-02-26] MEDS: MEGESTROL ACETATE SUSP 400 MG/10 ML UDCUP PO SCH (11:34)
[2019-02-26] MEDS: AMLODIPINE BESYLATE 10 MG TABLET PO SCH (11:34)
[2019-02-26] MEDS: ALLOPURINOL 100 MG TABLET PO SCH (11:34)
[2019-02-26] MEDS: CHOLECALCIFEROL (D3) 1,000 UNIT (25 MCG) TABLET PO SCH (11:34)
--- NOTE | 2019-02-26 15:11 | PDOC PROGRESS REPORT ---
Subjective Progress Note for:: 02/26/19 Subjective:: Patient is seen by the bedside, she had upper endoscopy, she was found to have superficial ulcers for GI prep could not get the colonoscopy done today Reason For Visit: ANEMIA,VOMITING, ACUTE CKD Physical Exam Vital Signs: Temp Pulse Resp BP Pulse Ox 98.2 F 110 H 17 95/67 L 99 02/26/19 11:40 02/26/19 11:40 02/26/19 11:40 02/26/19 11:40 02/26/19 11:40 Intake & Output 02/25/19 02/26/19 02/27/19 06:59 06:59 06:59 Intake Total 1510 1300 450 Output Total 550 300 Balance 960 1000 450 Weight 104.2 kg 100.1 kg General appearance: PRESENT: no acute distress Eye exam: PRESENT: PERRLA Respiratory exam: PRESENT: clear to auscultation heidi Cardiovascular exam: PRESENT: +S1, +S2 GI/Abdominal exam: PRESENT: soft Neurological exam: PRESENT: alert Results Laboratory Results: 02/22/19 14:20 02/26/19 07:02 02/26/19 02/26/19 05:52 07:02 Sodium 135.8 L 135.9 L Potassium 5.3 H 5.3 H Chloride 105 105 Carbon Dioxide 23 23 Anion Gap 8 8 BUN 10 9 Creatinine 0.93 0.97 Est GFR ( Amer) > 60 > 60 Glucose 73 L 74 L Calcium 7.0 L* 7.1 L 02/20/19 21:25 Blood Blood Culture - Final NO GROWTH IN 5 DAYS 02/20/19 21:25 Blood Blood Culture - Final NO GROWTH IN 5 DAYS Impressions: Chest X-Ray 02/20/19 00:00 IMPRESSION: Left central venous catheter, no pneumothorax. Blunted right costophrenic angle could be secondary to pleural fluid. Assessment & Plan - Diagnosis (1) Gastroenteritis Is this a current diagnosis for this admission?: Yes (2) Hypokalemia Is this a current diagnosis for this admission?: Yes (3) Hypoalbuminemia Is this a current diagnosis for this admission?: Yes (4) Hypomagnesemia Is this a current diagnosis for this admission?: Yes (5) Hypocalcemia Is this a current diagnosis for this admission?: Yes (6) Diarrhea Qualifiers: Diarrhea type: unspecified type Qualified Code(s): R19.7 - Diarrhea, unspecified Is this a current diagnosis for this admission?: Yes - Time Time Spent with patient: 35 or more minutes Level of Care: IMCU
[2019-02-26 17:34] LABS: ABSOLUTE EOSINOPHILS # (AUTO) 0.1 10^3/uL (0.0-0.6); ABSOLUTE LYMPHOCYTES (AUTO) 1.6 10^3/uL (0.5-4.7); ABSOLUTE MONOCYTES (AUTO) 0.8 10^3/uL (0.1-1.4); ABSOLUTE NEUT (AUTO) 4.8 10^3/uL (1.7-8.2); BASOPHILS % (AUTO) 0.6 % (0-2); EOSINOPHILS % (AUTO) 1.7 % (0-6); HEMATOCRIT 22.7 % (36.0-47.0); LYMPHOCYTES % (AUTO) 21.9 % (13-45); MEAN CORPUSCULAR HEMOGLOBIN 28.5 pg (27.0-33.4); MEAN CORPUSCULAR HGB CONC 34.1 g/dL (32.0-36.0); MEAN CORPUSCULAR VOLUME 84 fl (80-97); MONOCYTES % (AUTO) 10.7 % (3-13); PLATELET COUNT 336 10^3/uL (150-450); RED BLOOD COUNT 2.71 10^6/uL (3.72-5.28); RED CELL DISTRIBUTION WIDTH 21.6 % (11.5-14.0); SEGMENTED NEUTROPHILS % (AUTO) 65.1 % (42-78); TOTAL CELLS COUNTED % (AUTO) 100 %; WHITE BLOOD COUNT 7.4 10^3/uL (4.0-10.5)
[2019-02-26 17:38] LABS: HEMOGLOBIN 7.7 g/dL (12.0-15.5)
[2019-02-26] MEDS: POTASSI CL 40 MEQ/NS 1L 1,000 ML IV PRN (18:11)
[2019-02-26] MEDS: ATORVASTATIN CALCIUM 40 MG TABLET PO SCH (22:58)
[2019-02-26] MEDS: FERROUS SULFATE 325 MG TABLET PO SCH (22:58)
[2019-02-26] MEDS: GABAPENTIN 100 MG CAPSULE PO SCH (23:00)
[2019-02-27] MEDS: LEVOTHYROXINE SODIUM 0.075 MG TABLET PO SCH (05:09)
[2019-02-27 06:00] LABS: ABSOLUTE BASOPHILS # (AUTO) 0.1 10^3/uL (0.0-0.2); ABSOLUTE EOSINOPHILS # (AUTO) 0.1 10^3/uL (0.0-0.6); ABSOLUTE LYMPHOCYTES (AUTO) 1.7 10^3/uL (0.5-4.7); ABSOLUTE MONOCYTES (AUTO) 0.8 10^3/uL (0.1-1.4); ABSOLUTE NEUT (AUTO) 5.9 10^3/uL (1.7-8.2); BASOPHILS % (AUTO) 0.6 % (0-2); EOSINOPHILS % (AUTO) 1.7 % (0-6); HEMATOCRIT 32.5 % (36.0-47.0); LYMPHOCYTES % (AUTO) 19.5 % (13-45); MEAN CORPUSCULAR HEMOGLOBIN 28.9 pg (27.0-33.4); MEAN CORPUSCULAR HGB CONC 34.5 g/dL (32.0-36.0); MEAN CORPUSCULAR VOLUME 84 fl (80-97); MONOCYTES % (AUTO) 9.3 % (3-13); PLATELET COUNT 319 10^3/uL (150-450); RED BLOOD COUNT 3.87 10^6/uL (3.72-5.28); RED CELL DISTRIBUTION WIDTH 18.6 % (11.5-14.0); SEGMENTED NEUTROPHILS % (AUTO) 68.9 % (42-78); TOTAL CELLS COUNTED % (AUTO) 100 %; WHITE BLOOD COUNT 8.5 10^3/uL (4.0-10.5)
[2019-02-27 06:03] LABS: HEMOGLOBIN 11.2 g/dL (12.0-15.5)
[2019-02-27 06:25] LABS: ANION GAP 5 (5-19); BLOOD UREA NITROGEN 8 mg/dL (7-20); CALCIUM 7.4 mg/dL (8.4-10.2); CARBON DIOXIDE 24 mmol/L (22-30); CHLORIDE 103 mmol/L (98-107)
[2019-02-27 06:28] LABS: GLUCOSE 70 mg/dL (75-110)
[2019-02-27] MEDS: ACETAMINOPHEN 325 MG TABLET PO PRN ×2 (08:19→23:04)
[2019-02-27] MEDS ORDERED: DEXTROSE 50%-WATER 25 GM/50 ML DISP.SYRIN IV PRN ×2 (09:21)
[2019-02-27] MEDS ORDERED: DEXTROSE 40% GEL 15 GM TUBE PO PRN ×2 (09:21)
--- NOTE | 2019-02-27 09:28 | PDOC PROGRESS REPORT ---
Subjective Progress Note for:: 02/27/19 Subjective:: no pains Reason For Visit: ANEMIA,VOMITING, ACUTE CKD Physical Exam Vital Signs: Temp Pulse Resp BP Pulse Ox 98.2 F 100 18 135/62 H 100 02/27/19 07:18 02/27/19 07:18 02/27/19 07:18 02/27/19 07:18 02/27/19 07:18 Intake & Output 02/26/19 02/27/19 02/28/19 06:59 06:59 06:59 Intake Total 1300 1050 Output Total 300 1300 Balance 1000 -250 Weight 100.1 kg 98.3 kg Exam: abdomen is soft and non tender Results Laboratory Results: 02/27/19 05:25 02/27/19 05:25 02/26/19 02/26/19 02/27/19 15:30 18:50 05:25 WBC 7.4 8.5 RBC 2.71 L 3.87 Hgb 7.7 L 11.2 L D Hct 22.7 L 32.5 L MCV 84 84 MCH 28.5 28.9 MCHC 34.1 34.5 RDW 21.6 H 18.6 H Plt Count 336 319 Seg Neutrophils % 65.1 68.9 Sodium Potassium Chloride Carbon Dioxide Anion Gap BUN Creatinine Est GFR ( Amer) Glucose Calcium Blood Type O NEGATIVE Antibody Screen NEGATIVE 02/27/19 05:25 WBC RBC Hgb Hct MCV MCH MCHC RDW Plt Count Seg Neutrophils % Sodium 131.5 L Potassium 5.0 Chloride 103 Carbon Dioxide 24 Anion Gap 5 BUN 8 Creatinine 0.82 Est GFR ( Amer) > 60 Glucose 70 L Calcium 7.4 L Blood Type Antibody Screen Impressions: Chest X-Ray 02/20/19 00:00 IMPRESSION: Left central venous catheter, no pneumothorax. Blunted right costophrenic angle could be secondary to pleural fluid. Assessment & Plan - Time Time Spent with patient: 15-24 minutes - Inpatient Certification Medical Necessity: Need For IV Fluids, Need for Surgery - Plan Summary Plan Summary: For Colonoscopy tomorrow Patient and nurses informed about the need to take the whole bottle of golytely today for colonoscopy tomorrow.by Dr Elias
[2019-02-27] MEDS: LACTOBACILLUS ACIDOPHILUS 250 MG TAB PO SCH ×2 (11:22→18:21)
[2019-02-27] MEDS: LACOSAMIDE 100 MG TABLET PO SCH ×2 (11:22→22:59)
[2019-02-27] MEDS: APIXABAN 5 MG TABLET PO SCH ×2 (11:22→18:21)
[2019-02-27] MEDS: METOPROLOL SUCCINATE 50 MG TAB.SR.24H PO SCH (11:22)
[2019-02-27] MEDS: ASPIRIN 81 MG TABLET, ENT COATED PO SCH (11:22)
[2019-02-27] MEDS: MAGNESIUM OXIDE 400 MG TABLET PO SCH (11:22)
[2019-02-27] MEDS: MEGESTROL ACETATE SUSP 400 MG/10 ML UDCUP PO SCH (11:23)
[2019-02-27] MEDS: ALLOPURINOL 100 MG TABLET PO SCH (11:23)
[2019-02-27] MEDS: CHOLECALCIFEROL (D3) 1,000 UNIT (25 MCG) TABLET PO SCH (11:23)
[2019-02-27] MEDS: AMLODIPINE BESYLATE 10 MG TABLET PO SCH (11:27)
[2019-02-27] MEDS: LUBIPROSTONE 24 MCG CAPSULE PO SCH ×2 (11:30→18:22)
[2019-02-27] MEDS: LEVETIRACETAM ORAL SOLN 500 MG/5 ML UDCUP PO SCH ×2 (11:31→22:57)
[2019-02-27] MEDS: CLOBETASOL PROPIONATE 0.05% CREAM 15 GM TP SCH (11:33)
--- NOTE | 2019-02-27 20:50 | PDOC PROGRESS REPORT ---
Subjective Progress Note for:: 02/27/19 Subjective:: She had EGD done yesterday, she was found to have superficial ulcers in the stomach, she developed anemia due to acute GI blood loss, she was transfused with 2 units of packed red blood cells. She is scheduled for colonoscopy tomorrow I encouraged her to drink the GoLYTELY to prep the colon for colonoscopy because if the colon is not wet prep she will not be able to have the colonoscopy done this was explained to her she promised to take the GoLYTELY otherwise we may have to insert a nasogastric tube to administer the GoLYTELY Reason For Visit: ANEMIA,VOMITING, ACUTE CKD Physical Exam Vital Signs: Temp Pulse Resp BP Pulse Ox 98.3 F 100 18 137/69 H 100 02/27/19 15:09 02/27/19 15:09 02/27/19 15:09 02/27/19 15:09 02/27/19 15:09 Intake & Output 02/26/19 02/27/19 02/28/19 06:59 06:59 06:59 Intake Total 1300 1050 840 Output Total 300 1300 Balance 1000 -250 840 Weight 100.1 kg 98.3 kg Results Laboratory Results: 02/27/19 05:25 02/27/19 05:25 02/26/19 02/27/19 02/27/19 18:50 05:25 05:25 WBC 8.5 RBC 3.87 Hgb 11.2 L D Hct 32.5 L MCV 84 MCH 28.9 MCHC 34.5 RDW 18.6 H Plt Count 319 Seg Neutrophils % 68.9 Sodium 131.5 L Potassium 5.0 Chloride 103 Carbon Dioxide 24 Anion Gap 5 BUN 8 Creatinine 0.82 Est GFR ( Amer) > 60 Glucose 70 L Calcium 7.4 L Blood Type O NEGATIVE Antibody Screen NEGATIVE Impressions: Chest X-Ray 02/20/19 00:00 IMPRESSION: Left central venous catheter, no pneumothorax. Blunted right costophrenic angle could be secondary to pleural fluid. Assessment & Plan - Diagnosis (1) Gastroenteritis Is this a current diagnosis for this admission?: Yes (2) Hypokalemia Is this a current diagnosis for this admission?: Yes (3) Hypoalbuminemia Is this a current diagnosis for this admission?: Yes (4) Hypomagnesemia Is this a current diagnosis for this admission?: Yes (5) Hypocalcemia Is this a current diagnosis for this admission?: Yes (6) Diarrhea Qualifiers: Diarrhea type: unspecified type Qualified Code(s): R19.7 - Diarrhea, unspecified Is this a current diagnosis for this admission?: Yes Plan: Patient scheduled for colonoscopy (7) Anemia due to GI blood loss Is this a current diagnosis for this admission?: Yes Plan: Status post blood transfusion - Time Time Spent with patient: 35 or more minutes Level of Care: IMCU Medications reviewed and adjusted accordingly: Yes
[2019-02-27] MEDS: GABAPENTIN 100 MG CAPSULE PO SCH (22:58)
[2019-02-27] MEDS: ATORVASTATIN CALCIUM 40 MG TABLET PO SCH (22:58)
[2019-02-27] MEDS: FERROUS SULFATE 325 MG TABLET PO SCH (22:58)
[2019-02-28] MEDS: POTASSI CL 40 MEQ/NS 1L 1,000 ML IV PRN (03:01)
[2019-02-28] MEDS: LEVOTHYROXINE SODIUM 0.075 MG TABLET PO SCH (06:55)
[2019-02-28] MEDS: LUBIPROSTONE 24 MCG CAPSULE PO SCH ×2 (09:07→17:10)
[2019-02-28] MEDS: LACTOBACILLUS ACIDOPHILUS 250 MG TAB PO SCH ×2 (09:07→17:10)
[2019-02-28] MEDS: AMLODIPINE BESYLATE 10 MG TABLET PO SCH (09:08)
[2019-02-28] MEDS: CLOBETASOL PROPIONATE 0.05% CREAM 15 GM TP SCH (09:08)
[2019-02-28] MEDS: MEGESTROL ACETATE SUSP 400 MG/10 ML UDCUP PO SCH (09:08)
[2019-02-28] MEDS: MAGNESIUM OXIDE 400 MG TABLET PO SCH (09:08)
[2019-02-28] MEDS: LEVETIRACETAM ORAL SOLN 500 MG/5 ML UDCUP PO SCH ×2 (09:08→22:05)
[2019-02-28] MEDS: APIXABAN 5 MG TABLET PO SCH ×2 (09:08→17:10)
[2019-02-28] MEDS: ASPIRIN 81 MG TABLET, ENT COATED PO SCH (09:08)
[2019-02-28] MEDS: ALLOPURINOL 100 MG TABLET PO SCH (09:09)
[2019-02-28] MEDS: CHOLECALCIFEROL (D3) 1,000 UNIT (25 MCG) TABLET PO SCH (09:09)
[2019-02-28] MEDS: METOPROLOL SUCCINATE 50 MG TAB.SR.24H PO SCH (09:09)
[2019-02-28] MEDS ORDERED: PHENYLEPHRINE HCL INJ/PF 10 MG/1 ML SDV ONE (12:55)
[2019-02-28] MEDS ORDERED: PROPOFOL INJ 200 MG/20 ML VIAL IV ONE (17:58)
--- NOTE | 2019-02-28 19:15 | Operative Report ---
Nonrecallable Operative Report DATE OF SURGERY: 02/28/19 Operative Report: colonoscopy PREOPERATIVE DIAGNOSIS: anemia POSTOPERATIVE DIAGNOSIS: anemia OPERATION: colonoscopy SURGEON: CASPER RICH ANESTHESIA: Moderate Sedation TISSUE REMOVED OR ALTERED: none COMPLICATIONS: none ESTIMATED BLOOD LOSS: 0cc INTRAOPERATIVE FINDINGS: poor bowel prep. large amts of stool. tortuous colon at 70cm, unable to pass 70 cm PROCEDURE: Patient was brought to the operating room awake alert in stable condition she remained on her bed for the procedure. After appropriate timeout site verification the Olympus colonoscope was utilized for the procedure. We passed the scope into the rectum and was able to negotiate the sigmoid colon to the descending colon or large amounts of stool secondary to a poor bowel prep we able to reach 70 cm where we noted multiple diverticula large without evidence of any bleeding . Due to a large amount of liquid stool in the proximal colon at about 70 cm I was unable to visualize the lumen and the colon was somewhat tortuous at this point and therefore I elected to terminate the procedure at this point. Findings consistent with multiple diverticuli. Incomplete colonoscopy to 70 cm Recommendations air-contrast barium enema.
--- NOTE | 2019-02-28 21:24 | PDOC PROGRESS REPORT ---
Subjective Progress Note for:: 02/28/19 Subjective:: She had colonoscopy today, it was a poorly prepped colon Reason For Visit: ANEMIA,VOMITING, ACUTE CKD Physical Exam Vital Signs: Temp Pulse Resp BP Pulse Ox 97.9 F 111 H 16 126/69 H 96 02/28/19 19:45 02/28/19 19:45 02/28/19 19:45 02/28/19 19:45 02/28/19 19:45 Intake & Output 02/27/19 02/28/19 03/01/19 06:59 06:59 06:59 Intake Total 1050 1825 880 Output Total 1300 625 450 Balance -250 1200 430 Weight 98.3 kg 100 kg 100 kg General appearance: PRESENT: no acute distress Eye exam: PRESENT: PERRLA Respiratory exam: PRESENT: clear to auscultation heidi Cardiovascular exam: PRESENT: +S1, +S2 GI/Abdominal exam: PRESENT: soft Neurological exam: PRESENT: alert Results Laboratory Results: 02/27/19 05:25 02/27/19 05:25 Impressions: Chest X-Ray 02/20/19 00:00 IMPRESSION: Left central venous catheter, no pneumothorax. Blunted right costophrenic angle could be secondary to pleural fluid. Assessment & Plan - Diagnosis (1) Gastroenteritis Is this a current diagnosis for this admission?: Yes (2) Hypokalemia Is this a current diagnosis for this admission?: Yes (3) Hypoalbuminemia Is this a current diagnosis for this admission?: Yes (4) Hypomagnesemia Is this a current diagnosis for this admission?: Yes (5) Hypocalcemia Is this a current diagnosis for this admission?: Yes (6) Diarrhea Qualifiers: Diarrhea type: unspecified type Qualified Code(s): R19.7 - Diarrhea, unspecified Is this a current diagnosis for this admission?: Yes (7) Anemia due to GI blood loss Is this a current diagnosis for this admission?: Yes - Time Time Spent with patient: 35 or more minutes Level of Care: IMCU
[2019-02-28] MEDS: ACETAMINOPHEN 325 MG TABLET PO PRN (22:02)
[2019-02-28] MEDS: FERROUS SULFATE 325 MG TABLET PO SCH (22:02)
[2019-02-28] MEDS: ATORVASTATIN CALCIUM 40 MG TABLET PO SCH (22:02)
[2019-02-28] MEDS: GABAPENTIN 100 MG CAPSULE PO SCH (22:03)
[2019-03-01] MEDS: LEVOTHYROXINE SODIUM 0.075 MG TABLET PO SCH (06:26)
[2019-03-01] MEDS: POTASSI CL 40 MEQ/NS 1L 1,000 ML IV PRN (06:27)
[2019-03-01 07:11] LABS: ANION GAP 7 (5-19); BLOOD UREA NITROGEN 10 mg/dL (7-20); CALCIUM 7.7 mg/dL (8.4-10.2); CARBON DIOXIDE 21 mmol/L (22-30); CHLORIDE 103 mmol/L (98-107); POTASSIUM 4.8 mmol/L (3.6-5.0)
[2019-03-01 07:13] LABS: GLUCOSE 63 mg/dL (75-110)
--- NOTE | 2019-03-01 07:45 | EKG REPORT ---
SEVERITY:- ABNORMAL ECG - SINUS TACHYCARDIA LOW VOLTAGE IN FRONTAL LEADS NEW NONSPECIFIC ANTERIOR ST-T INVERSIONS COMAPRED TO 02/20/19 EKG, CLINICAL CORRELATION NEED : Confirmed by: Timothy Deras MD 01-Mar-2019 07:44:37
[2019-03-01] MEDS: LUBIPROSTONE 24 MCG CAPSULE PO SCH ×2 (09:27→17:32)
[2019-03-01] MEDS: MAGNESIUM OXIDE 400 MG TABLET PO SCH (09:27)
[2019-03-01] MEDS: LEVETIRACETAM ORAL SOLN 500 MG/5 ML UDCUP PO SCH ×2 (09:27→21:39)
[2019-03-01] MEDS: METOPROLOL SUCCINATE 50 MG TAB.SR.24H PO SCH (09:27)
[2019-03-01] MEDS: AMLODIPINE BESYLATE 10 MG TABLET PO SCH (09:27)
[2019-03-01] MEDS: ALLOPURINOL 100 MG TABLET PO SCH (09:27)
[2019-03-01] MEDS: ASPIRIN 81 MG TABLET, ENT COATED PO SCH (09:28)
[2019-03-01] MEDS: LACTOBACILLUS ACIDOPHILUS 250 MG TAB PO SCH ×2 (09:28→17:32)
[2019-03-01] MEDS: MEGESTROL ACETATE SUSP 400 MG/10 ML UDCUP PO SCH (09:30)
[2019-03-01] MEDS: CLOBETASOL PROPIONATE 0.05% CREAM 15 GM TP SCH (09:30)
[2019-03-01] MEDS: CHOLECALCIFEROL (D3) 1,000 UNIT (25 MCG) TABLET PO SCH (09:31)
--- NOTE | 2019-03-01 10:13 | PDOC PROGRESS REPORT ---
Subjective Progress Note for:: 03/01/19 Subjective:: This is a 78-year-old female admitted with anemia. She underwent upper endoscopy showing gastritis. She underwent lower endoscopy showing a poor bowel prep, but no sign of active bleeding. Currently the patient has been ordered a contrast enema to rule out any masses or strictures that were missed due to the poor prep. Currently, the patient reports "feeling bad". She is still refusing to drink her bowel prep. She reports nausea, but denies vomiting. She reports abdominal cramping, malaise, and fatigue. She denies chest pain, shortness of breath, headache, blurry vision. Reason For Visit: ANEMIA,VOMITING, ACUTE CKD Physical Exam Vital Signs: Temp Pulse Resp BP Pulse Ox 97.8 F 136 H 18 118/53 L 99 03/01/19 07:42 03/01/19 07:42 03/01/19 07:42 03/01/19 07:42 03/01/19 07:42 Intake & Output 02/28/19 03/01/19 03/02/19 06:59 06:59 06:59 Intake Total 1825 1748 Output Total 625 800 Balance 1200 948 Weight 100 kg 100 kg General appearance: PRESENT: no acute distress, thin, other - Elderly Head exam: PRESENT: atraumatic, normocephalic Eye exam: PRESENT: EOMI, PERRLA. ABSENT: scleral icterus Mouth exam: PRESENT: moist, neck supple Neck exam: ABSENT: meningismus, tenderness, thyromegaly, tracheal deviation Respiratory exam: PRESENT: unlabored. ABSENT: chest wall tenderness, tachypnea, wheezes Cardiovascular exam: ABSENT: tachycardia GI/Abdominal exam: PRESENT: soft. ABSENT: distended, tenderness Rectal exam: PRESENT: deferred Extremities exam: ABSENT: clubbing Neurological exam: PRESENT: alert, awake, oriented to person, oriented to place, oriented to time, oriented to situation, CN II-XII grossly intact Psychiatric exam: ABSENT: agitated, anxious, depressed Focused psych exam: ABSENT: delusional Skin exam: ABSENT: cyanosis, erythema, jaundice Results Laboratory Results: 02/27/19 05:25 03/01/19 06:40 03/01/19 06:40 Sodium 131.2 L Potassium 4.8 Chloride 103 Carbon Dioxide 21 L Anion Gap 7 BUN 10 Creatinine 0.80 Est GFR ( Amer) > 60 Glucose 63 L Calcium 7.7 L Impressions: Chest X-Ray 02/20/19 00:00 IMPRESSION: Left central venous catheter, no pneumothorax. Blunted right costophrenic angle could be secondary to pleural fluid. Assessment & Plan - Diagnosis (1) Anemia due to GI blood loss Is this a current diagnosis for this admission?: Yes - Time Time Spent with patient: Less than 15 minutes - Plan Summary Plan Summary: This is a 78-year-old female with anemia. She was found to have gastritis. There was no sign of bleeding on colonoscopy, however it was significantly limited due to her refusal to drink her bowel prep. A contrast enema was ordered to rule out any significant strictures or tumors in the right colon. The patient will have to finish her bowel prep before the contrast enema can be performed. At this time, she is refusing to drink her bowel prep. Unfortunately, the examination cannot be performed until her bowel prep is completed. At this time, surgery has no further recommendations. We will see the patient again on an as-needed basis. Please renotify with any questions or concerns.
[2019-03-01 15:32] LABS: HEMATOCRIT 31.1 % (36.0-47.0); HEMOGLOBIN 10.5 g/dL (12.0-15.5); MEAN CORPUSCULAR HEMOGLOBIN 28.7 pg (27.0-33.4); MEAN CORPUSCULAR HGB CONC 33.8 g/dL (32.0-36.0); MEAN CORPUSCULAR VOLUME 85 fl (80-97); PLATELET COUNT 366 10^3/uL (150-450); RED BLOOD COUNT 3.66 10^6/uL (3.72-5.28); RED CELL DISTRIBUTION WIDTH 19.4 % (11.5-14.0); WHITE BLOOD COUNT 7.1 10^3/uL (4.0-10.5)
[2019-03-01 15:46] LABS: INTERNATIONAL RATION (INR) 1.29; PROTHROMBIN TIME 16.2 SEC (11.4-15.4)
[2019-03-01 15:51] LABS: ALKALINE PHOSPHATASE 135 U/L (38-126); ANION GAP 6 (5-19); ASPARTATE AMINO TRANSFERASE 28 U/L (14-36); BILIRUBIN,DIRECT 0.2 mg/dL (0.0-0.4); BILIRUBIN,TOTAL 0.5 mg/dL (0.2-1.3); BLOOD UREA NITROGEN 11 mg/dL (7-20); CALCIUM 7.5 mg/dL (8.4-10.2); CARBON DIOXIDE 22 mmol/L (22-30); CHLORIDE 104 mmol/L (98-107); GLUCOSE 70 mg/dL (75-110); PHOSPHORUS 2.7 mg/dL (2.5-4.5); POTASSIUM 4.7 mmol/L (3.6-5.0); TRIGLYCERIDES 122 mg/dL (<150)
[2019-03-01 15:58] LABS: PREALBUMIN 6.7 mg/dL (17.6-36.0)
--- NOTE | 2019-03-01 17:12 | PDOC PROGRESS REPORT ---
Subjective Progress Note for:: 03/01/19 Subjective:: Patient with poor intake, nausea, she could not get the barium enema because of poor colon prep. Start TPN temporarily because she continues to have extremely poor intake with electrolyte derangements despite repeated intravenous replacement therapy she continues to manifest letter derangement with hypokalemia, hypomagnesemia, hypoalbuminemia Reason For Visit: ANEMIA,VOMITING, ACUTE CKD Physical Exam Vital Signs: Temp Pulse Resp BP Pulse Ox 97.8 F 112 H 15 117/57 L 99 03/01/19 11:19 03/01/19 14:00 03/01/19 11:19 03/01/19 11:19 03/01/19 11:19 Intake & Output 02/28/19 03/01/19 03/02/19 06:59 06:59 06:59 Intake Total 1825 1748 120 Output Total 625 800 50 Balance 1200 948 70 Weight 100 kg 100 kg General appearance: PRESENT: no acute distress Eye exam: PRESENT: PERRLA Respiratory exam: PRESENT: clear to auscultation heidi Cardiovascular exam: PRESENT: +S1, +S2 GI/Abdominal exam: PRESENT: soft Neurological exam: PRESENT: alert Results Laboratory Results: 03/01/19 15:25 03/01/19 15:25 03/01/19 03/01/19 03/01/19 06:40 15:25 15:25 WBC 7.1 RBC 3.66 L Hgb 10.5 L Hct 31.1 L MCV 85 MCH 28.7 MCHC 33.8 RDW 19.4 H Plt Count 366 Sodium 131.2 L 132.0 L Potassium 4.8 4.7 Chloride 103 104 Carbon Dioxide 21 L 22 Anion Gap 7 6 BUN 10 11 Creatinine 0.80 0.94 Est GFR ( Amer) > 60 > 60 Glucose 63 L 70 L Calcium 7.7 L 7.5 L Phosphorus 2.7 Magnesium 1.0 L* Total Bilirubin 0.5 AST 28 Alkaline Phosphatase 135 H Total Protein 5.0 L Albumin 2.0 L Prealbumin 6.7 L Triglycerides 122 Impressions: Chest X-Ray 02/20/19 00:00 IMPRESSION: Left central venous catheter, no pneumothorax. Blunted right costophrenic angle could be secondary to pleural fluid. Assessment & Plan - Diagnosis (1) Gastroenteritis Is this a current diagnosis for this admission?: Yes (2) Hypokalemia Is this a current diagnosis for this admission?: Yes (3) Hypoalbuminemia Is this a current diagnosis for this admission?: Yes (4) Hypomagnesemia Is this a current diagnosis for this admission?: Yes (5) Hypocalcemia Is this a current diagnosis for this admission?: Yes (6) Diarrhea Qualifiers: Diarrhea type: unspecified type Qualified Code(s): R19.7 - Diarrhea, unspecified Is this a current diagnosis for this admission?: Yes (7) Anemia due to GI blood loss Is this a current diagnosis for this admission?: Yes - Time Time Spent with patient: 35 or more minutes Level of Care: IMCU - Plan Summary Plan Summary: Start TPN
[2019-03-01] MEDS: FERROUS SULFATE 325 MG TABLET PO SCH ×2 (21:39→22:35)
[2019-03-01] MEDS: GABAPENTIN 100 MG CAPSULE PO SCH ×2 (21:39→22:35)
[2019-03-01] MEDS: ATORVASTATIN CALCIUM 40 MG TABLET PO SCH ×2 (21:39→22:35)
[2019-03-02 05:23] LABS: ALBUMIN 1.9 g/dL (3.5-5.0); ALKALINE PHOSPHATASE 130 U/L (38-126); ANION GAP 5 (5-19); ASPARTATE AMINO TRANSFERASE 27 U/L (14-36); BILIRUBIN,DIRECT 0.3 mg/dL (0.0-0.4); BILIRUBIN,TOTAL 0.6 mg/dL (0.2-1.3); BLOOD UREA NITROGEN 11 mg/dL (7-20); CALCIUM 7.5 mg/dL (8.4-10.2); CARBON DIOXIDE 22 mmol/L (22-30); CHLORIDE 105 mmol/L (98-107); GLUCOSE 70 mg/dL (75-110); PHOSPHORUS 2.6 mg/dL (2.5-4.5); POTASSIUM 4.7 mmol/L (3.6-5.0); TOTAL PROTEIN 4.7 g/dL (6.3-8.2)
[2019-03-02] MEDS: LEVOTHYROXINE SODIUM 0.075 MG TABLET PO SCH (05:25)
[2019-03-02 05:34] LABS: PREALBUMIN 7.1 mg/dL (17.6-36.0)
[2019-03-02] MEDS ORDERED: POTASSI CL 20 MEQ/D5NS 1L 20 MEQ/1,000 ML RTUINJ IV ONE (08:12)
[2019-03-02] MEDS: POTASSI CL 20 MEQ/D5NS 1L 1000 ML IV PRN (08:41)
[2019-03-02] MEDS: ALLOPURINOL 100 MG TABLET PO SCH (09:32)
[2019-03-02] MEDS: LUBIPROSTONE 24 MCG CAPSULE PO SCH ×2 (09:32→17:57)
[2019-03-02] MEDS: LEVETIRACETAM ORAL SOLN 500 MG/5 ML UDCUP PO SCH ×2 (09:32→21:45)
[2019-03-02] MEDS: LACTOBACILLUS ACIDOPHILUS 250 MG TAB PO SCH ×2 (09:32→17:57)
[2019-03-02] MEDS: AMLODIPINE BESYLATE 10 MG TABLET PO SCH (09:32)
[2019-03-02] MEDS: METOPROLOL SUCCINATE 50 MG TAB.SR.24H PO SCH (09:32)
[2019-03-02] MEDS: CHOLECALCIFEROL (D3) 1,000 UNIT (25 MCG) TABLET PO SCH (09:32)
[2019-03-02] MEDS: MAGNESIUM OXIDE 400 MG TABLET PO SCH (09:32)
[2019-03-02] MEDS: CLOBETASOL PROPIONATE 0.05% CREAM 15 GM TP SCH (09:33)
[2019-03-02] MEDS: MEGESTROL ACETATE SUSP 400 MG/10 ML UDCUP PO SCH (09:33)
[2019-03-02] MEDS: ASPIRIN 81 MG TABLET, ENT COATED PO SCH (09:33)
--- NOTE | 2019-03-02 10:07 | RADIOLOGY REPORT (SQ) ---
EXAM DESCRIPTION: KUB/ABDOMEN (SINGLE VIEW) COMPLETED DATE/TIME: 03/02/2019 9:44 am REASON FOR STUDY: anemia COMPARISON: Left hip films 08/10/2018 NUMBER OF VIEWS: One view. TECHNIQUE: Supine radiographic image of the abdomen acquired. LIMITATIONS: AP portable supine films FINDINGS: BOWEL GAS PATTERN: Normal bowel gas pattern. No dilated loops. No gross bowel obstruction . CALCIFICATIONS: Multiple calcified pelvic phleboliths SOFT TISSUES: No gross mass or suggestion of organomegaly. HARDWARE: Calloway catheter in the bladder BONES: No acute fracture. Chronic appearing sclerosis and diastases of the symphysis pubis. OTHER: No other significant finding. IMPRESSION: Grossly nonobstructive bowel gas pattern TECHNICAL DOCUMENTATION: JOB ID: [id number] [employer]- All Rights Reserved Reading location - IP/workstation name: [email or web address]
[2019-03-02] MEDS ORDERED: DEXTROSE 10%-WATER 1,000 ML IV PRN (12:00)
[2019-03-02] MEDS: ACETAMINOPHEN 325 MG TABLET PO PRN (13:08)
[2019-03-02] MEDS: INSULIN REG, HUMAN 100 UNIT/ML 3 ML VIAL (PYX) SUBCUT SCH ×2 (13:14→21:40)
[2019-03-02] MEDS: AMINO ACIDS 5 %/DEXTROSE 20 % 1,000 ML IV PRN (20:19)
--- NOTE | 2019-03-02 20:28 | PDOC PROGRESS REPORT ---
Subjective Progress Note for:: 03/02/19 Subjective:: Patient seen by the bedside, she complain of pain in both knees, she is not eating or drinking I ordered TPN yesterday as a temporary measure to supplement nutrition, this is yet to be started over 24 hours ago it was ordered. She has severe hypoalbuminemia a reflection of severe malnutrition/undernutrition Reason For Visit: ANEMIA,VOMITING, ACUTE CKD Physical Exam Vital Signs: Temp Pulse Resp BP Pulse Ox 98.3 F 117 H 16 126/66 H 100 03/02/19 16:20 03/02/19 16:20 03/02/19 16:20 03/02/19 16:20 03/02/19 16:20 Intake & Output 03/01/19 03/02/19 03/03/19 06:59 06:59 06:59 Intake Total 1748 195 Output Total 800 181 200 Balance 948 14 -200 Weight 100 kg 102.2 kg 102.2 kg General appearance: PRESENT: no acute distress Eye exam: PRESENT: PERRLA Respiratory exam: PRESENT: clear to auscultation heidi Cardiovascular exam: PRESENT: +S1, +S2 GI/Abdominal exam: PRESENT: soft Neurological exam: PRESENT: alert Results Laboratory Results: 03/01/19 15:25 03/02/19 04:40 03/02/19 04:40 Sodium 131.7 L Potassium 4.7 Chloride 105 Carbon Dioxide 22 Anion Gap 5 BUN 11 Creatinine 0.99 Est GFR ( Amer) > 60 Glucose 70 L Calcium 7.5 L Phosphorus 2.6 Total Bilirubin 0.6 AST 27 Alkaline Phosphatase 130 H Total Protein 4.7 L Albumin 1.9 L Prealbumin 7.1 L Impressions: Chest X-Ray 02/20/19 00:00 IMPRESSION: Left central venous catheter, no pneumothorax. Blunted right costophrenic angle could be secondary to pleural fluid. KUB X-Ray 03/01/19 06:00 IMPRESSION: Grossly nonobstructive bowel gas pattern Assessment & Plan - Diagnosis (1) Gastroenteritis Is this a current diagnosis for this admission?: Yes (2) Hypokalemia Is this a current diagnosis for this admission?: Yes (3) Hypoalbuminemia Is this a current diagnosis for this admission?: Yes (4) Hypomagnesemia Is this a current diagnosis for this admission?: Yes (5) Hypocalcemia Is this a current diagnosis for this admission?: Yes (6) Diarrhea Qualifiers: Diarrhea type: unspecified type Qualified Code(s): R19.7 - Diarrhea, unspecified Is this a current diagnosis for this admission?: Yes (7) Anemia due to GI blood loss Is this a current diagnosis for this admission?: Yes - Time Time Spent with patient: 35 or more minutes Level of Care: IMCU
[2019-03-02] MEDS: GABAPENTIN 100 MG CAPSULE PO SCH (21:45)
[2019-03-02] MEDS: ATORVASTATIN CALCIUM 40 MG TABLET PO SCH (21:45)
[2019-03-02] MEDS: FERROUS SULFATE 325 MG TABLET PO SCH (21:46)
--- NOTE | 2019-03-02 23:42 | RADIOLOGY REPORT (SQ) ---
EXAM DESCRIPTION: XR KNEE 1-2 VIEWS BILATERAL COMPLETED DATE/TME: 03/02/2019 00:00 CLINICAL HISTORY: 78 years, Female, bilateral knee pain COMPARISON: None. NUMBER OF VIEWS: TECHNIQUE: LIMITATIONS: None. FINDINGS: No fracture or dislocation. There is no significant sized knee joint effusion bilaterally. The right total knee prosthesis appears to be in satisfactory position. There are degenerative changes involving the left knee, most apparent involving the medial joint compartment and patellofemoral joint. IMPRESSION: Degenerative changes involving the left knee. The right total knee prosthesis appears to be in satisfactory position. copyright 2010 [employer]- All Rights Reserved
[2019-03-03] MEDS: INSULIN REG, HUMAN 100 UNIT/ML 3 ML VIAL (PYX) SUBCUT SCH ×4 (01:01→17:47)
[2019-03-03] MEDS: LEVOTHYROXINE SODIUM 0.075 MG TABLET PO SCH (06:13)
[2019-03-03] MEDS: POTASSI CL 20 MEQ/D5NS 1L 1000 ML IV PRN ×2 (06:13→18:50)
[2019-03-03] MEDS: ACETAMINOPHEN 325 MG TABLET PO PRN (06:18)
[2019-03-03 07:08] LABS: AMORPHOUS SEDIMENT,URINE TRACE /HPF; APPEARANCE,URINE TURBID; BILIRUBIN,URINE NEGATIVE (NEGATIVE); GLUCOSE, URINE NEGATIVE (NEGATIVE); KETONES,URINE NEGATIVE (NEGATIVE); LEUKOCYTE ESTERASE,URINE LARGE (NEGATIVE); NITRITE,URINE POSITIVE (NEGATIVE); PROTEIN,URINE 100 mg/dL (NEGATIVE); TRIPLE PHOSPHATE CRYSTAL,URINE FEW /HPF; URINE SPECIFIC GRAVITY 1.012; UROBILINOGEN,URINE NEGATIVE mg/dL (<2.0)
[2019-03-03 07:12] LABS: COLOR,URINE YELLOW
[2019-03-03 07:14] LABS: ALBUMIN 1.8 g/dL (3.5-5.0); ALKALINE PHOSPHATASE 109 U/L (38-126); ANION GAP 7 (5-19); ASPARTATE AMINO TRANSFERASE 26 U/L (14-36); BILIRUBIN,DIRECT 0.2 mg/dL (0.0-0.4); BILIRUBIN,TOTAL 0.4 mg/dL (0.2-1.3); BLOOD UREA NITROGEN 11 mg/dL (7-20); CALCIUM 7.6 mg/dL (8.4-10.2); CARBON DIOXIDE 22 mmol/L (22-30); CHLORIDE 107 mmol/L (98-107); GLUCOSE 110 mg/dL (75-110); PHOSPHORUS 2.3 mg/dL (2.5-4.5); POTASSIUM 4.6 mmol/L (3.6-5.0); TOTAL PROTEIN 4.7 g/dL (6.3-8.2)
[2019-03-03 07:22] LABS: PREALBUMIN 6.7 mg/dL (17.6-36.0)
[2019-03-03] MEDS: ALLOPURINOL 100 MG TABLET PO SCH (09:38)
[2019-03-03] MEDS: ASPIRIN 81 MG TABLET, ENT COATED PO SCH (09:38)
[2019-03-03] MEDS: MEGESTROL ACETATE SUSP 400 MG/10 ML UDCUP PO SCH (09:38)
[2019-03-03] MEDS: AMLODIPINE BESYLATE 10 MG TABLET PO SCH (09:38)
[2019-03-03] MEDS: MAGNESIUM OXIDE 400 MG TABLET PO SCH (09:38)
[2019-03-03] MEDS: LACTOBACILLUS ACIDOPHILUS 250 MG TAB PO SCH ×2 (09:38→17:44)
[2019-03-03] MEDS: METOPROLOL SUCCINATE 50 MG TAB.SR.24H PO SCH (09:38)
[2019-03-03] MEDS: CHOLECALCIFEROL (D3) 1,000 UNIT (25 MCG) TABLET PO SCH (09:38)
[2019-03-03] MEDS: LUBIPROSTONE 24 MCG CAPSULE PO SCH ×2 (09:39→17:44)
[2019-03-03] MEDS: LEVETIRACETAM ORAL SOLN 500 MG/5 ML UDCUP PO SCH ×3 (09:39→22:24)
[2019-03-03] MEDS: CLOBETASOL PROPIONATE 0.05% CREAM 15 GM TP SCH (09:39)
[2019-03-03] MEDS: TRAMADOL HCL 50 MG TABLET PO PRN (10:10)
[2019-03-03] MEDS: AMINO ACIDS 5 %/DEXTROSE 20 % 1,000 ML IV PRN (17:42)
[2019-03-03] MEDS ORDERED: FUROSEMIDE INJ/PF 40 MG/4 ML SDV IV ONE (19:00)
--- NOTE | 2019-03-03 20:57 | PDOC PROGRESS REPORT ---
Subjective Progress Note for:: 03/03/19 Subjective:: Patient seen by the bedside, presently on TPN because of malnutrition, hypoalbuminemia due to reduced intake. This is a temporary measure to improve nutritional status Reason For Visit: ANEMIA,VOMITING, ACUTE CKD Physical Exam Vital Signs: Temp Pulse Resp BP Pulse Ox 97.8 F 91 16 99/67 L 100 03/03/19 12:52 03/03/19 18:04 03/03/19 12:52 03/03/19 18:04 03/03/19 18:04 Intake & Output 03/02/19 03/03/19 03/04/19 06:59 06:59 06:59 Intake Total 195 1100 1000 Output Total 181 850 200 Balance 14 250 800 Weight 102.2 kg 102.6 kg 102.6 kg General appearance: PRESENT: no acute distress Eye exam: PRESENT: PERRLA Respiratory exam: PRESENT: clear to auscultation hiedi Cardiovascular exam: PRESENT: +S1, +S2 GI/Abdominal exam: PRESENT: soft Extremities exam: PRESENT: pedal edema Neurological exam: PRESENT: alert Results Laboratory Results: 03/01/19 15:25 03/03/19 06:25 03/03/19 03/03/19 06:25 06:40 Sodium 136.0 L Potassium 4.6 Chloride 107 Carbon Dioxide 22 Anion Gap 7 BUN 11 Creatinine 0.80 Est GFR ( Amer) > 60 Glucose 110 Calcium 7.6 L Phosphorus 2.3 L Total Bilirubin 0.4 AST 26 Alkaline Phosphatase 109 Total Protein 4.7 L Albumin 1.8 L Prealbumin 6.7 L Urine Color YELLOW Urine Appearance TURBID Urine pH 9.0 Ur Specific [place] 1.012 Urine Protein 100 H Urine Glucose (UA) NEGATIVE Urine Ketones NEGATIVE Urine Blood MODERATE H Urine Nitrite POSITIVE H Ur Leukocyte Esterase LARGE H Urine WBC (Auto) 152 Urine RBC (Auto) 10 Impressions: Chest X-Ray 02/20/19 00:00 IMPRESSION: Left central venous catheter, no pneumothorax. Blunted right costophrenic angle could be secondary to pleural fluid. KUB X-Ray 03/01/19 06:00 IMPRESSION: Grossly nonobstructive bowel gas pattern Knee X-Ray 03/02/19 00:00 IMPRESSION: Degenerative changes involving the left knee. The right total knee prosthesis appears to be in satisfactory position. copyright 2011 [employer]- All Rights Reserved Assessment & Plan - Diagnosis (1) Gastroenteritis Is this a current diagnosis for this admission?: Yes (2) Hypokalemia Is this a current diagnosis for this admission?: Yes (3) Hypoalbuminemia Is this a current diagnosis for this admission?: Yes (4) Hypomagnesemia Is this a current diagnosis for this admission?: Yes (5) Hypocalcemia Is this a current diagnosis for this admission?: Yes (6) Diarrhea Qualifiers: Diarrhea type: unspecified type Qualified Code(s): R19.7 - Diarrhea, unspecified Is this a current diagnosis for this admission?: Yes (7) Anemia due to GI blood loss Is this a current diagnosis for this admission?: Yes - Time Time Spent with patient: 35 or more minutes Level of Care: IMCU - Plan Summary Plan Summary: Continue TPN, give Lasix 40 IV x1 dose
[2019-03-03] MEDS: ONDANSETRON HCL 8 MG TABLET PO PRN (22:11)
[2019-03-03] MEDS: ATORVASTATIN CALCIUM 40 MG TABLET PO SCH (22:12)
[2019-03-03] MEDS: FERROUS SULFATE 325 MG TABLET PO SCH (22:12)
[2019-03-03] MEDS: GABAPENTIN 100 MG CAPSULE PO SCH (22:13)
[2019-03-04] MEDS: INSULIN REG, HUMAN 100 UNIT/ML 3 ML VIAL (PYX) SUBCUT SCH ×4 (00:17→18:05)
[2019-03-04 05:26] LABS: BLOOD UREA NITROGEN 13 mg/dL (7-20); CALCIUM 7.7 mg/dL (8.4-10.2); GLUCOSE 106 mg/dL (75-110); PHOSPHORUS 1.9 mg/dL (2.5-4.5)
[2019-03-04 05:31] LABS: CARBON DIOXIDE 23 mmol/L (22-30); CHLORIDE 110 mmol/L (98-107)
[2019-03-04 05:32] LABS: PREALBUMIN 8.3 mg/dL (17.6-36.0)
[2019-03-04 05:35] LABS: ANION GAP 4 (5-19)
[2019-03-04] MEDS: LEVOTHYROXINE SODIUM 0.075 MG TABLET PO SCH (06:14)
[2019-03-04] MEDS: CHOLECALCIFEROL (D3) 1,000 UNIT (25 MCG) TABLET PO SCH (09:18)
[2019-03-04] MEDS: LACTOBACILLUS ACIDOPHILUS 250 MG TAB PO SCH ×2 (09:18→18:03)
[2019-03-04] MEDS: MAGNESIUM OXIDE 400 MG TABLET PO SCH (09:18)
[2019-03-04] MEDS: ASPIRIN 81 MG TABLET, ENT COATED PO SCH (09:18)
[2019-03-04] MEDS: METOPROLOL SUCCINATE 50 MG TAB.SR.24H PO SCH (09:18)
[2019-03-04] MEDS: LUBIPROSTONE 24 MCG CAPSULE PO SCH ×2 (09:18→18:03)
[2019-03-04] MEDS: ALLOPURINOL 100 MG TABLET PO SCH (09:18)
[2019-03-04] MEDS: LEVETIRACETAM ORAL SOLN 500 MG/5 ML UDCUP PO SCH ×2 (09:18→21:43)
[2019-03-04] MEDS: AMLODIPINE BESYLATE 10 MG TABLET PO SCH (09:18)
[2019-03-04] MEDS: MEGESTROL ACETATE SUSP 400 MG/10 ML UDCUP PO SCH (09:19)
[2019-03-04] MEDS: CLOBETASOL PROPIONATE 0.05% CREAM 15 GM TP SCH (09:21)
[2019-03-04] MEDS ORDERED: DEXTROSE 5%-NORMAL SALINE 1,000 ML IV PRN (12:28)
--- NOTE | 2019-03-04 14:58 | PDOC PROGRESS REPORT ---
Subjective Progress Note for:: 03/04/19 Subjective:: Patient tolerated oral intake of apple pie earlier today without any problem. she denied any chest pain or difficulty with breathing. No fever or chills. Reason For Visit: ANEMIA,VOMITING, ACUTE CKD Physical Exam Vital Signs: Temp Pulse Resp BP Pulse Ox 98.1 F 107 H 18 96/55 L 96 03/04/19 10:55 03/04/19 10:55 03/04/19 10:55 03/04/19 10:55 03/04/19 10:55 Intake & Output 03/03/19 03/04/19 03/05/19 06:59 06:59 06:59 Intake Total 1100 1000 100 Output Total 850 425 100 Balance 250 575 0 Weight 102.6 kg 105.3 kg General appearance: PRESENT: no acute distress, morbidly obese Head exam: PRESENT: atraumatic, normocephalic Eye exam: PRESENT: conjunctiva pink. ABSENT: scleral icterus Ear exam: PRESENT: normal external ear exam Mouth exam: PRESENT: moist Respiratory exam: PRESENT: clear to auscultation heidi, decreased breath sounds - at lung bases Cardiovascular exam: PRESENT: RRR. ABSENT: diastolic murmur, rubs, systolic murmur Vascular exam: ABSENT: pallor GI/Abdominal exam: PRESENT: normal bowel sounds, soft. ABSENT: distended, guarding, mass, organolmegaly, rebound, tenderness Extremities exam: PRESENT: pedal edema Neurological exam: PRESENT: alert, awake, oriented to person, oriented to place, oriented to time, oriented to situation, CN II-XII grossly intact. ABSENT: motor sensory deficit Psychiatric exam: PRESENT: appropriate affect, normal mood. ABSENT: homicidal ideation, suicidal ideation Skin exam: PRESENT: dry, warm Results Laboratory Results: 03/01/19 15:25 03/04/19 04:50 03/04/19 04:50 Sodium 136.5 L Potassium 5.0 Chloride 110 H Carbon Dioxide 23 Anion Gap 4 L BUN 13 Creatinine 0.80 Est GFR ( Amer) > 60 Glucose 106 Calcium 7.7 L Phosphorus 1.9 L Prealbumin 8.3 L Impressions: Chest X-Ray 02/20/19 00:00 IMPRESSION: Left central venous catheter, no pneumothorax. Blunted right costophrenic angle could be secondary to pleural fluid. KUB X-Ray 03/01/19 06:00 IMPRESSION: Grossly nonobstructive bowel gas pattern Knee X-Ray 03/02/19 00:00 IMPRESSION: Degenerative changes involving the left knee. The right total knee prosthesis appears to be in satisfactory position. copyright 2010 [employer] All Rights Reserved Assessment & Plan - Diagnosis (1) Anemia due to GI blood loss Is this a current diagnosis for this admission?: Yes Plan: Her indices are much better s/p transfusion with 2 units PRBC. (2) Gastroenteritis Is this a current diagnosis for this admission?: Yes Plan: Improved diarrhea. No more vomiting or nausea. Sh is agreeable to trial of a dvance diet consistency to mechanical soft diet today. (3) Hypocalcemia Is this a current diagnosis for this admission?: Yes Plan: She will continue on TPN supportive replacement therapy. (4) Hypokalemia Is this a current diagnosis for this admission?: Yes Plan: She will continue on TPN supportive replacement therapy. (5) Hypomagnesemia Is this a current diagnosis for this admission?: Yes Plan: She will continue on TPN supportive replacement therapy. (6) Hypoalbuminemia Is this a current diagnosis for this admission?: Yes Plan: She will continue on TPN supportive replacement therapy. (7) Adult failure to thrive syndrome Is this a current diagnosis for this admission?: Yes Plan: Start on mechanical soft diet today. (8) Hypertension Qualifiers: Hypertension type: essential hypertension Qualified Code(s): I10 - Essential (primary) hypertension Is this a current diagnosis for this admission?: Yes Plan: She will continue on current medication management. (9) Hypothyroidism Qualifiers: Hypothyroidism type: unspecified Qualified Code(s): E03.9 - Hypothyroidism, unspecified Is this a current diagnosis for this admission?: Yes Plan: She will continue on current medication management. - Time Time Spent with patient: 35 or more minutes Level of Care: IMCU Medications reviewed and adjusted accordingly: Yes Anticipated discharge: Home with Homehealth Within: Other - Inpatient Certification Based on my medical assessment, after consideration of the patient's comorbidities, presenting symptoms, or acuity I expect that the services needed warrant INPATIENT care.: Yes I certify that my determination is in accordance with my understanding of Medicare's requirements for reasonable and necessary INPATIENT services [42 CFR 412.3e].: Yes Medical Necessity: Significant Comorbidiites Make Outpatient Treatment Too Risky, Need Close Monitoring Due to Risk of Patient Decompensation, Need For IV Fluids, Need For Continuous Telemetry Monitoring, Risk of Complication if Not Cared For in Hospital, Risk of Diagnosis Which Will Require Inpatient Eval/Care/Monitoring Post Hospital 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
[2019-03-04] MEDS: AMINO ACIDS 5 %/DEXTROSE 20 % 1,000 ML IV PRN (18:03)
[2019-03-04] MEDS: FERROUS SULFATE 325 MG TABLET PO SCH (21:43)
[2019-03-04] MEDS: ATORVASTATIN CALCIUM 40 MG TABLET PO SCH (21:43)
[2019-03-04] MEDS: GABAPENTIN 100 MG CAPSULE PO SCH (21:43)
[2019-03-05] MEDS: INSULIN REG, HUMAN 100 UNIT/ML 3 ML VIAL (PYX) SUBCUT SCH ×4 (00:09→17:34)
[2019-03-05 05:06] LABS: ABSOLUTE BASOPHILS # (AUTO) 0.1 10^3/uL (0.0-0.2); ABSOLUTE EOSINOPHILS # (AUTO) 0.4 10^3/uL (0.0-0.6); ABSOLUTE LYMPHOCYTES (AUTO) 1.7 10^3/uL (0.5-4.7); ABSOLUTE MONOCYTES (AUTO) 0.8 10^3/uL (0.1-1.4); ABSOLUTE NEUT (AUTO) 4.9 10^3/uL (1.7-8.2); BASOPHILS % (AUTO) 0.6 % (0-2); EOSINOPHILS % (AUTO) 4.5 % (0-6); MEAN CORPUSCULAR HEMOGLOBIN 28.6 pg (27.0-33.4); MEAN CORPUSCULAR HGB CONC 33.4 g/dL (32.0-36.0); MEAN CORPUSCULAR VOLUME 86 fl (80-97); MONOCYTES % (AUTO) 10.1 % (3-13); PLATELET COUNT 349 10^3/uL (150-450); RED BLOOD COUNT 3.14 10^6/uL (3.72-5.28); RED CELL DISTRIBUTION WIDTH 19.9 % (11.5-14.0); SEGMENTED NEUTROPHILS % (AUTO) 62.8 % (42-78); TOTAL CELLS COUNTED % (AUTO) 100 %; WHITE BLOOD COUNT 7.9 10^3/uL (4.0-10.5)
[2019-03-05 05:25] LABS: ALBUMIN 1.8 g/dL (3.5-5.0); ALKALINE PHOSPHATASE 95 U/L (38-126); ANION GAP 5 (5-19); ASPARTATE AMINO TRANSFERASE 27 U/L (14-36); BILIRUBIN,DIRECT 0.1 mg/dL (0.0-0.4); BILIRUBIN,TOTAL 0.2 mg/dL (0.2-1.3); BLOOD UREA NITROGEN 17 mg/dL (7-20); CALCIUM 7.8 mg/dL (8.4-10.2); CARBON DIOXIDE 20 mmol/L (22-30); CHLORIDE 111 mmol/L (98-107); GLUCOSE 101 mg/dL (75-110); POTASSIUM 5.3 mmol/L (3.6-5.0); TOTAL PROTEIN 4.4 g/dL (6.3-8.2)
[2019-03-05] MEDS: LEVOTHYROXINE SODIUM 0.075 MG TABLET PO SCH (05:35)
[2019-03-05] MEDS: ASPIRIN 81 MG TABLET, ENT COATED PO SCH (09:23)
[2019-03-05] MEDS: LUBIPROSTONE 24 MCG CAPSULE PO SCH ×2 (09:23→17:08)
[2019-03-05] MEDS: CLOBETASOL PROPIONATE 0.05% CREAM 15 GM TP SCH (09:23)
[2019-03-05] MEDS: MAGNESIUM OXIDE 400 MG TABLET PO SCH (09:23)
[2019-03-05] MEDS: METOPROLOL SUCCINATE 50 MG TAB.SR.24H PO SCH (09:23)
[2019-03-05] MEDS: LACTOBACILLUS ACIDOPHILUS 250 MG TAB PO SCH ×2 (09:23→17:08)
[2019-03-05] MEDS: ALLOPURINOL 100 MG TABLET PO SCH (09:23)
[2019-03-05] MEDS: MEGESTROL ACETATE SUSP 400 MG/10 ML UDCUP PO SCH (09:23)
[2019-03-05] MEDS: AMLODIPINE BESYLATE 10 MG TABLET PO SCH (09:23)
[2019-03-05] MEDS: CHOLECALCIFEROL (D3) 1,000 UNIT (25 MCG) TABLET PO SCH (09:23)
[2019-03-05] MEDS: LEVETIRACETAM ORAL SOLN 500 MG/5 ML UDCUP PO SCH ×2 (09:23→21:49)
[2019-03-05] MEDS: AMINO ACIDS 5 %/DEXTROSE 20 % 1,000 ML IV PRN (15:57)
--- NOTE | 2019-03-05 16:21 | PDOC PROGRESS REPORT ---
Subjective Progress Note for:: 03/05/19 Subjective:: Patient denied any chest pain or difficulty with breathing. No fever or chills. Tolerating oral feeding with mechanical soft diet and full aspiration precautions. Reason For Visit: ANEMIA,VOMITING, ACUTE CKD Physical Exam Vital Signs: Temp Pulse Resp BP Pulse Ox 98.6 F 88 17 116/51 L 100 03/05/19 07:22 03/05/19 14:00 03/05/19 07:22 03/05/19 07:22 03/05/19 07:22 Intake & Output 03/04/19 03/05/19 03/06/19 06:59 06:59 06:59 Intake Total 1000 250 360 Output Total 425 575 Balance 575 -325 360 Weight 105.3 kg 103.6 kg Physical Exam: General appearance: PRESENT: no acute distress, morbidly obese Head exam: PRESENT: atraumatic, normocephalic Eye exam: PRESENT: conjunctiva pink. ABSENT: pallor, scleral icterus Ear exam: PRESENT: normal external ear exam Mouth exam: PRESENT: moist Respiratory exam: PRESENT: clear to auscultation heidi, decreased breath sounds - at lung bases Cardiovascular exam: PRESENT: RRR. ABSENT: diastolic murmur, rubs, systolic murmur GI/Abdominal exam: PRESENT: normal bowel sounds, soft. ABSENT: distended, guarding, mass, organomegaly, rebound, tenderness Extremities exam: PRESENT: pedal edema Neurological exam: PRESENT: alert, awake, oriented to person, oriented to place, oriented to time, oriented to situation, CN II-XII grossly intact. ABSENT: motor sensory deficit Psychiatric exam: PRESENT: appropriate affect, normal mood. ABSENT: homicidal ideation, suicidal ideation Skin exam: PRESENT: dry, warm Results Laboratory Results: 03/05/19 04:39 03/05/19 04:39 03/05/19 03/05/19 04:39 04:39 WBC 7.9 RBC 3.14 L Hgb 9.0 L Hct 27.0 L MCV 86 MCH 28.6 MCHC 33.4 RDW 19.9 H Plt Count 349 Seg Neutrophils % 62.8 Sodium 135.6 L Potassium 5.3 H Chloride 111 H Carbon Dioxide 20 L Anion Gap 5 BUN 17 Creatinine 0.94 Est GFR ( Amer) > 60 Glucose 101 Calcium 7.8 L Total Bilirubin 0.2 AST 27 Alkaline Phosphatase 95 Total Protein 4.4 L Albumin 1.8 L Impressions: Chest X-Ray 02/20/19 00:00 IMPRESSION: Left central venous catheter, no pneumothorax. Blunted right costophrenic angle could be secondary to pleural fluid. KUB X-Ray 03/01/19 06:00 IMPRESSION: Grossly nonobstructive bowel gas pattern Knee X-Ray 03/02/19 00:00 IMPRESSION: Degenerative changes involving the left knee. The right total knee prosthesis appears to be in satisfactory position. copyright 2010 [employer]- All Rights Reserved Assessment & Plan - Diagnosis (1) Anemia due to GI blood loss Is this a current diagnosis for this admission?: Yes (2) Gastroenteritis Is this a current diagnosis for this admission?: Yes (3) Hypocalcemia Is this a current diagnosis for this admission?: Yes (4) Hypokalemia Is this a current diagnosis for this admission?: Yes (5) Hypomagnesemia Is this a current diagnosis for this admission?: Yes (6) Hypoalbuminemia Is this a current diagnosis for this admission?: Yes (7) Adult failure to thrive syndrome Is this a current diagnosis for this admission?: Yes (8) Hypertension Qualifiers: Hypertension type: essential hypertension Qualified Code(s): I10 - Essent ial (primary) hypertension Is this a current diagnosis for this admission?: Yes (9) Hypothyroidism Qualifiers: Hypothyroidism type: unspecified Qualified Code(s): E03.9 - Hypothyroidism, unspecified Is this a current diagnosis for this admission?: Yes - Time Time Spent with patient: 25-34 minutes Level of Care: IMCU Medications reviewed and adjusted accordingly: Yes Anticipated discharge: Home with Homehealth Within: Other - Inpatient Certification Based on my medical assessment, after consideration of the patient's comorbidities, presenting symptoms, or acuity I expect that the services needed warrant INPATIENT care.: Yes I certify that my determination is in accordance with my understanding of Medicare's requirements for reasonable and necessary INPATIENT services [42 CFR 412.3e].: Yes Medical Necessity: Significant Comorbidiites Make Outpatient Treatment Too Risky, Need Close Monitoring Due to Risk of Patient Decompensation, Need For Continuous Telemetry Monitoring, Risk of Complication if Not Cared For in Hospital, Risk of Diagnosis Which Will Require Inpatient Eval/Care/Monitoring Post Hospital Care: D/C Quality Audit Representative Documentation - Plan Summary Plan Summary: Continue current medication management. Advance diet as tolerated.
[2019-03-05] MEDS: ACETAMINOPHEN 325 MG TABLET PO PRN (21:49)
[2019-03-05] MEDS: FERROUS SULFATE 325 MG TABLET PO SCH (21:49)
[2019-03-05] MEDS: ATORVASTATIN CALCIUM 40 MG TABLET PO SCH (21:49)
[2019-03-05] MEDS: GABAPENTIN 100 MG CAPSULE PO SCH (21:49)
[2019-03-06] MEDS: INSULIN REG, HUMAN 100 UNIT/ML 3 ML VIAL (PYX) SUBCUT SCH ×4 (00:49→17:43)
[2019-03-06] MEDS: LEVOTHYROXINE SODIUM 0.075 MG TABLET PO SCH (05:35)
[2019-03-06 09:03] LABS: ABSOLUTE BASOPHILS # (AUTO) 0.1 10^3/uL (0.0-0.2); ABSOLUTE EOSINOPHILS # (AUTO) 0.4 10^3/uL (0.0-0.6); ABSOLUTE LYMPHOCYTES (AUTO) 1.5 10^3/uL (0.5-4.7); ABSOLUTE MONOCYTES (AUTO) 0.6 10^3/uL (0.1-1.4); ABSOLUTE NEUT (AUTO) 4.5 10^3/uL (1.7-8.2); BASOPHILS % (AUTO) 0.9 % (0-2); HEMATOCRIT 25.6 % (36.0-47.0); HEMOGLOBIN 8.7 g/dL (12.0-15.5); LYMPHOCYTES % (AUTO) 21.6 % (13-45); MEAN CORPUSCULAR HGB CONC 34.1 g/dL (32.0-36.0); MEAN CORPUSCULAR VOLUME 85 fl (80-97); MONOCYTES % (AUTO) 9.1 % (3-13); PLATELET COUNT 397 10^3/uL (150-450); SEGMENTED NEUTROPHILS % (AUTO) 63.4 % (42-78); TOTAL CELLS COUNTED % (AUTO) 100 %; WHITE BLOOD COUNT 7.1 10^3/uL (4.0-10.5)
[2019-03-06 09:24] LABS: INTERNATIONAL RATION (INR) 1.08; PROTHROMBIN TIME 14.1 SEC (11.4-15.4)
[2019-03-06 09:41] LABS: ALBUMIN 1.9 g/dL (3.5-5.0); ALKALINE PHOSPHATASE 99 U/L (38-126); ASPARTATE AMINO TRANSFERASE 29 U/L (14-36); BILIRUBIN,DIRECT 0.2 mg/dL (0.0-0.4); BILIRUBIN,TOTAL 0.2 mg/dL (0.2-1.3); BLOOD UREA NITROGEN 16 mg/dL (7-20); CALCIUM 8.4 mg/dL (8.4-10.2); GLUCOSE 112 mg/dL (75-110); PHOSPHORUS 2.2 mg/dL (2.5-4.5); POTASSIUM 5.2 mmol/L (3.6-5.0); TOTAL PROTEIN 4.8 g/dL (6.3-8.2); TRIGLYCERIDES 93 mg/dL (<150)
[2019-03-06 09:45] LABS: CARBON DIOXIDE 24 mmol/L (22-30); CHLORIDE 107 mmol/L (98-107)
[2019-03-06 09:48] LABS: PREALBUMIN 14.9 mg/dL (17.6-36.0)
[2019-03-06 09:52] LABS: ANION GAP 2 (5-19)
[2019-03-06] MEDS: FAT EMULSIONS 250 ML IV SCH (10:20)
[2019-03-06] MEDS: ALLOPURINOL 100 MG TABLET PO SCH (10:21)
[2019-03-06] MEDS: CHOLECALCIFEROL (D3) 1,000 UNIT (25 MCG) TABLET PO SCH (10:21)
[2019-03-06] MEDS: AMLODIPINE BESYLATE 10 MG TABLET PO SCH (10:21)
[2019-03-06] MEDS: ASPIRIN 81 MG TABLET, ENT COATED PO SCH (10:21)
[2019-03-06] MEDS: METOPROLOL SUCCINATE 50 MG TAB.SR.24H PO SCH (10:21)
[2019-03-06] MEDS: MAGNESIUM OXIDE 400 MG TABLET PO SCH (10:21)
[2019-03-06] MEDS: LUBIPROSTONE 24 MCG CAPSULE PO SCH ×2 (10:21→17:12)
[2019-03-06] MEDS: LACTOBACILLUS ACIDOPHILUS 250 MG TAB PO SCH ×2 (10:21→17:12)
[2019-03-06] MEDS: MEGESTROL ACETATE SUSP 400 MG/10 ML UDCUP PO SCH (10:22)
[2019-03-06] MEDS: LEVETIRACETAM ORAL SOLN 500 MG/5 ML UDCUP PO SCH ×2 (10:22→21:21)
[2019-03-06] MEDS: CLOBETASOL PROPIONATE 0.05% CREAM 15 GM TP SCH (10:25)
[2019-03-06] MEDS: AMINO ACIDS 5 %/DEXTROSE 20 % 1,000 ML IV PRN (17:11)
--- NOTE | 2019-03-06 20:54 | PDOC PROGRESS REPORT ---
Subjective Progress Note for:: 03/06/19 Subjective:: Patient seen by the bedside, she still on TPN, severe hypoalbuminemia Reason For Visit: ANEMIA,VOMITING, ACUTE CKD Physical Exam Vital Signs: Temp Pulse Resp BP Pulse Ox 98.3 F 93 18 110/43 L 100 03/06/19 10:51 03/06/19 13:43 03/06/19 10:51 03/06/19 10:51 03/06/19 10:51 Intake & Output 03/05/19 03/06/19 03/07/19 06:59 06:59 06:59 Intake Total 250 480 850 Output Total 575 850 300 Balance -325 -370 550 Weight 103.6 kg 108.5 kg 108.5 kg General appearance: PRESENT: no acute distress Eye exam: PRESENT: PERRLA Respiratory exam: PRESENT: clear to auscultation heidi Cardiovascular exam: PRESENT: +S1, +S2 GI/Abdominal exam: PRESENT: soft Neurological exam: PRESENT: alert Results Laboratory Results: 03/06/19 08:49 03/06/19 08:49 03/06/19 03/06/19 08:49 08:49 WBC 7.1 RBC 3.00 L Hgb 8.7 L Hct 25.6 L MCV 85 MCH 29.0 MCHC 34.1 RDW 20.0 H Plt Count 397 Seg Neutrophils % 63.4 Sodium 132.7 L Potassium 5.2 H Chloride 107 Carbon Dioxide 24 Anion Gap 2 L BUN 16 Creatinine 0.81 Est GFR ( Amer) > 60 Glucose 112 H Calcium 8.4 Phosphorus 2.2 L Magnesium 1.4 L Total Bilirubin 0.2 AST 29 Alkaline Phosphatase 99 Total Protein 4.8 L Albumin 1.9 L Prealbumin 14.9 L Triglycerides 93 Impressions: Chest X-Ray 02/20/19 00:00 IMPRESSION: Left central venous catheter, no pneumothorax. Blunted right costophrenic angle could be secondary to pleural fluid. KUB X-Ray 03/01/19 06:00 IMPRESSION: Grossly nonobstructive bowel gas pattern Knee X-Ray 03/02/19 00:00 IMPRESSION: Degenerative changes involving the left knee. The right total knee prosthesis appears to be in satisfactory position. copyright 2010 [employer]- All Rights Reserved Assessment & Plan - Diagnosis (1) Gastroenteritis Is this a current diagnosis for this admission?: Yes (2) Hypokalemia Is this a current diagnosis for this admission?: Yes (3) Hypoalbuminemia Is this a current diagnosis for this admission?: Yes (4) Hypomagnesemia Is this a current diagnosis for this admission?: Yes (5) Hypocalcemia Is this a current diagnosis for this admission?: Yes (6) Diarrhea Qualifiers: Diarrhea type: unspecified type Qualified Code(s): R19.7 - Diarrhea, unspecified Is this a current diagnosis for this admission?: Yes (7) Anemia due to GI blood loss Is this a current diagnosis for this admission?: Yes - Time Time Spent with patient: 25-34 minutes Level of Care: IMCU
[2019-03-06] MEDS: GABAPENTIN 100 MG CAPSULE PO SCH (21:20)
[2019-03-06] MEDS: ATORVASTATIN CALCIUM 40 MG TABLET PO SCH (21:20)
[2019-03-06] MEDS: FERROUS SULFATE 325 MG TABLET PO SCH (21:20)
[2019-03-07] MEDS: INSULIN REG, HUMAN 100 UNIT/ML 3 ML VIAL (PYX) SUBCUT SCH ×4 (00:38→18:40)
[2019-03-07] MEDS ORDERED: ALTEPLASE INJ 2 MG VIAL (CATH CLEARANCE) IV ONE ×2 (03:45)
[2019-03-07] MEDS: LEVOTHYROXINE SODIUM 0.075 MG TABLET PO SCH (05:28)
[2019-03-07] MEDS: LUBIPROSTONE 24 MCG CAPSULE PO SCH ×2 (09:45→17:14)
[2019-03-07] MEDS: AMLODIPINE BESYLATE 10 MG TABLET PO SCH (09:46)
[2019-03-07] MEDS: MEGESTROL ACETATE SUSP 400 MG/10 ML UDCUP PO SCH (09:46)
[2019-03-07] MEDS: ASPIRIN 81 MG TABLET, ENT COATED PO SCH (09:46)
[2019-03-07] MEDS: LACTOBACILLUS ACIDOPHILUS 250 MG TAB PO SCH ×2 (09:46→17:15)
[2019-03-07] MEDS: CHOLECALCIFEROL (D3) 1,000 UNIT (25 MCG) TABLET PO SCH (09:46)
[2019-03-07] MEDS: ALLOPURINOL 100 MG TABLET PO SCH (09:46)
[2019-03-07] MEDS: LEVETIRACETAM ORAL SOLN 500 MG/5 ML UDCUP PO SCH ×2 (09:46→21:25)
[2019-03-07] MEDS: METOPROLOL SUCCINATE 50 MG TAB.SR.24H PO SCH (09:46)
[2019-03-07] MEDS: MAGNESIUM OXIDE 400 MG TABLET PO SCH (09:46)
[2019-03-07] MEDS: CLOBETASOL PROPIONATE 0.05% CREAM 15 GM TP SCH (09:47)
[2019-03-07] MEDS: AMINO ACIDS 5 %/DEXTROSE 20 % 1,000 ML IV PRN (16:17)
--- NOTE | 2019-03-07 17:47 | PDOC PROGRESS REPORT ---
Subjective Progress Note for:: 03/07/19 Subjective:: Patient continues to depend on TPN for nutritional support, the serum albumin is extremely low at 1, she has very poor oral intake, and we need to discuss with family if PEG tube placement is an option they would like to consider for this patient, the TPN is a temporary measure Reason For Visit: ANEMIA,VOMITING, ACUTE CKD Physical Exam Vital Signs: Temp Pulse Resp BP Pulse Ox 98.2 F 98 16 103/46 L 100 03/07/19 15:40 03/07/19 15:40 03/07/19 15:40 03/07/19 15:40 03/07/19 15:40 Intake & Output 03/06/19 03/07/19 03/08/19 06:59 06:59 06:59 Intake Total 480 1050 Output Total 850 1675 Balance -370 -625 Weight 108.5 kg 102.7 kg General appearance: PRESENT: no acute distress, obese Eye exam: PRESENT: PERRLA Respiratory exam: PRESENT: clear to auscultation heidi Cardiovascular exam: PRESENT: +S1, +S2 GI/Abdominal exam: PRESENT: soft Neurological exam: PRESENT: alert Results Laboratory Results: 03/06/19 08:49 03/06/19 08:49 Impressions: Chest X-Ray 02/20/19 00:00 IMPRESSION: Left central venous catheter, no pneumothorax. Blunted right costophrenic angle could be secondary to pleural fluid. KUB X-Ray 03/01/19 06:00 IMPRESSION: Grossly nonobstructive bowel gas pattern Knee X-Ray 03/02/19 00:00 IMPRESSION: Degenerative changes involving the left knee. The right total knee prosthesis appears to be in satisfactory position. copyright 2010 [employer]- All Rights Reserved Assessment & Plan - Diagnosis (1) Gastroenteritis Is this a current diagnosis for this admission?: Yes (2) Hypokalemia Is this a current diagnosis for this admission?: Yes (3) Hypoalbuminemia Is this a current diagnosis for this admission?: Yes (4) Hypomagnesemia Is this a current diagnosis for this admission?: Yes (5) Hypocalcemia Is this a current diagnosis for this admission?: Yes (6) Diarrhea Qualifiers: Diarrhea type: unspecified type Qualified Code(s): R19.7 - Diarrhea, unspecified Is this a current diagnosis for this admission?: Yes (7) Anemia due to GI blood loss Is this a current diagnosis for this admission?: Yes - Time Time Spent with patient: 35 or more minutes - Plan Summary Plan Summary: Continue treatment
[2019-03-07 18:10] LABS: ABSOLUTE BASOPHILS # (AUTO) 0.1 10^3/uL (0.0-0.2); ABSOLUTE EOSINOPHILS # (AUTO) 0.2 10^3/uL (0.0-0.6); ABSOLUTE LYMPHOCYTES (AUTO) 1.5 10^3/uL (0.5-4.7); ABSOLUTE MONOCYTES (AUTO) 0.7 10^3/uL (0.1-1.4); ABSOLUTE NEUT (AUTO) 5.6 10^3/uL (1.7-8.2); BASOPHILS % (AUTO) 1.1 % (0-2); HEMATOCRIT 25.4 % (36.0-47.0); HEMOGLOBIN 8.6 g/dL (12.0-15.5); LYMPHOCYTES % (AUTO) 18.7 % (13-45); MEAN CORPUSCULAR HGB CONC 33.9 g/dL (32.0-36.0); MEAN CORPUSCULAR VOLUME 86 fl (80-97); MONOCYTES % (AUTO) 8.5 % (3-13); PLATELET COUNT 427 10^3/uL (150-450); RED BLOOD COUNT 2.97 10^6/uL (3.72-5.28); RED CELL DISTRIBUTION WIDTH 19.8 % (11.5-14.0); SEGMENTED NEUTROPHILS % (AUTO) 68.7 % (42-78); TOTAL CELLS COUNTED % (AUTO) 100 %; WHITE BLOOD COUNT 8.2 10^3/uL (4.0-10.5)
[2019-03-07 18:33] LABS: ALKALINE PHOSPHATASE 117 U/L (38-126); ANION GAP 5 (5-19); ASPARTATE AMINO TRANSFERASE 40 U/L (14-36); BILIRUBIN,DIRECT 0.1 mg/dL (0.0-0.4); BILIRUBIN,TOTAL 0.2 mg/dL (0.2-1.3); BLOOD UREA NITROGEN 16 mg/dL (7-20); CALCIUM 8.6 mg/dL (8.4-10.2); CARBON DIOXIDE 23 mmol/L (22-30); CHLORIDE 107 mmol/L (98-107); GLUCOSE 120 mg/dL (75-110); TOTAL PROTEIN 4.8 g/dL (6.3-8.2)
[2019-03-07] MEDS: FERROUS SULFATE 325 MG TABLET PO SCH (21:24)
[2019-03-07] MEDS: ATORVASTATIN CALCIUM 40 MG TABLET PO SCH (21:24)
[2019-03-07] MEDS: GABAPENTIN 100 MG CAPSULE PO SCH (21:24)
[2019-03-07] MEDS: ACETAMINOPHEN 325 MG TABLET PO PRN (21:24)
[2019-03-08] MEDS: INSULIN REG, HUMAN 100 UNIT/ML 3 ML VIAL (PYX) SUBCUT SCH ×3 (01:25→15:19)
[2019-03-08] MEDS: ACETAMINOPHEN 325 MG TABLET PO PRN ×2 (01:25→10:44)
[2019-03-08] MEDS: LEVOTHYROXINE SODIUM 0.075 MG TABLET PO SCH (06:24)
[2019-03-08] MEDS: LEVETIRACETAM ORAL SOLN 500 MG/5 ML UDCUP PO SCH ×2 (10:44→22:20)
[2019-03-08] MEDS: ASPIRIN 81 MG TABLET, ENT COATED PO SCH (10:44)
[2019-03-08] MEDS: AMLODIPINE BESYLATE 10 MG TABLET PO SCH (10:44)
[2019-03-08] MEDS: LACTOBACILLUS ACIDOPHILUS 250 MG TAB PO SCH ×2 (10:44→17:54)
[2019-03-08] MEDS: MAGNESIUM OXIDE 400 MG TABLET PO SCH (10:44)
[2019-03-08] MEDS: LUBIPROSTONE 24 MCG CAPSULE PO SCH ×2 (10:44→17:54)
[2019-03-08] MEDS: METOPROLOL SUCCINATE 50 MG TAB.SR.24H PO SCH (10:44)
[2019-03-08] MEDS: ALLOPURINOL 100 MG TABLET PO SCH (10:44)
[2019-03-08] MEDS: CHOLECALCIFEROL (D3) 1,000 UNIT (25 MCG) TABLET PO SCH (10:44)
--- NOTE | 2019-03-08 14:19 | PDOC PROGRESS REPORT ---
Subjective Progress Note for:: 03/08/19 Subjective:: I saw the patient by the bedside with the family, the primary problem at the moment is severe hypoalbuminemia due to poor intake, she is presently on TPN temporarily this is not intended to be long-term, I spoke to the patient's family about a PEG tube placement temporarily to help supplement her nutrition. She may still continue eating orally, with this strategy she can build back her nutritional status. Tomorrow is Thanksgiving so clearly this procedure will be done only after Thanksgiving. She continues to have facial twitching, history of seizure, get EEG Reason For Visit: ANEMIA,VOMITING, ACUTE CKD Physical Exam Vital Signs: Temp Pulse Resp BP Pulse Ox 97.9 F 98 18 111/52 L 99 03/08/19 12:57 03/08/19 12:57 03/08/19 12:57 03/08/19 12:57 03/08/19 12:57 Intake & Output 03/07/19 03/08/19 03/09/19 06:59 06:59 06:59 Intake Total 1050 220 Output Total 1675 875 Balance -625 -655 Weight 102.7 kg 103.9 kg General appearance: PRESENT: no acute distress Eye exam: PRESENT: PERRLA Respiratory exam: PRESENT: clear to auscultation heidi Cardiovascular exam: PRESENT: +S1, +S2 GI/Abdominal exam: PRESENT: soft Neurological exam: PRESENT: alert Results Laboratory Results: 03/07/19 18:02 03/07/19 18:02 03/07/19 03/07/19 18:02 18:02 WBC 8.2 RBC 2.97 L Hgb 8.6 L Hct 25.4 L MCV 86 MCH 29.0 MCHC 33.9 RDW 19.8 H Plt Count 427 Seg Neutrophils % 68.7 Sodium 134.9 L Potassium 5.0 Chloride 107 Carbon Dioxide 23 Anion Gap 5 BUN 16 Creatinine 0.83 Est GFR ( Amer) > 60 Glucose 120 H Calcium 8.6 Total Bilirubin 0.2 AST 40 H Alkaline Phosphatase 117 Total Protein 4.8 L Albumin 2.0 L Impressions: Chest X-Ray 02/20/19 00:00 IMPRESSION: Left central venous catheter, no pneumothorax. Blunted right costophrenic angle could be secondary to pleural fluid. KUB X-Ray 03/01/19 06:00 IMPRESSION: Grossly nonobstructive bowel gas pattern Knee X-Ray 03/02/19 00:00 IMPRESSION: Degenerative changes involving the left knee. The right total knee prosthesis appears to be in satisfactory position. copyright 2011 [employer]- All Rights Reserved Assessment & Plan - Diagnosis (1) Gastroenteritis Is this a current diagnosis for this admission?: Yes (2) Hypokalemia Is this a current diagnosis for this admission?: Yes (3) Hypoalbuminemia Is this a current diagnosis for this admission?: Yes Plan: This is from poor nutritional status, consultation will be obtain for temporary PEG tube placement (4) Hypomagnesemia Is this a current diagnosis for this admission?: Yes (5) Hypocalcemia Is this a current diagnosis for this admission?: Yes (6) Diarrhea Qualifiers: Diarrhea type: unspecified type Qualified Code(s): R19.7 - Diarrhea, unspe cified Is this a current diagnosis for this admission?: Yes (7) Anemia due to GI blood loss Is this a current diagnosis for this admission?: Yes - Time Time Spent with patient: 35 or more minutes Level of Care: IMCU
[2019-03-08] MEDS: CLOBETASOL PROPIONATE 0.05% CREAM 15 GM TP SCH (15:16)
[2019-03-08] MEDS: MEGESTROL ACETATE SUSP 400 MG/10 ML UDCUP PO SCH (15:18)
[2019-03-08] MEDS: AMINO ACIDS 5 %/DEXTROSE 20 % 1,000 ML IV PRN (17:54)
[2019-03-08] MEDS: ATORVASTATIN CALCIUM 40 MG TABLET PO SCH (22:20)
[2019-03-08] MEDS: FERROUS SULFATE 325 MG TABLET PO SCH (22:20)
[2019-03-08] MEDS: GABAPENTIN 100 MG CAPSULE PO SCH (22:21)
[2019-03-08 23:12] LABS: UR PRO/CREAT RATIO RESULT 2.8 mg/mg (0.0-0.2); URINE CREATININE 35.7 mg/dL (15-278); URINE PROTEIN 101.5 mg/dL (<12)
[2019-03-09] MEDS: INSULIN REG, HUMAN 100 UNIT/ML 3 ML VIAL (PYX) SUBCUT SCH ×5 (00:20→20:08)
[2019-03-09] MEDS: LEVOTHYROXINE SODIUM 0.075 MG TABLET PO SCH (05:30)
--- NOTE | 2019-03-09 10:18 | PDOC PROGRESS REPORT ---
Subjective Progress Note for:: 03/09/19 Subjective:: Patient is currently doing fair breakfast tray on the on-site table patient did not even try Very poor p.o. intake Dr. Mcarthur's talk to the family about the PEG tube placements Patient is denied any chest pain no short of breath Reason For Visit: ANEMIA,VOMITING, ACUTE CKD Physical Exam Vital Signs: Temp Pulse Resp BP Pulse Ox 98.8 F 99 18 112/54 L 100 03/09/19 08:01 03/09/19 08:01 03/09/19 08:01 03/09/19 08:01 03/09/19 08:01 Intake & Output 03/08/19 03/09/19 03/10/19 06:59 06:59 06:59 Intake Total 220 200 Output Total 875 1000 Balance -655 -800 Weight 103.9 kg 102.7 kg General appearance: PRESENT: no acute distress Head exam: PRESENT: atraumatic, normocephalic Eye exam: PRESENT: conjunctiva pink, EOMI, PERRLA. ABSENT: scleral icterus Ear exam: PRESENT: normal external ear exam Mouth exam: PRESENT: moist, tongue midline Neck exam: PRESENT: full ROM. ABSENT: carotid bruit, JVD, lymphadenopathy, thyromegaly Respiratory exam: PRESENT: clear to auscultation heidi Cardiovascular exam: PRESENT: RRR. ABSENT: diastolic murmur, rubs, systolic murmur Pulses: PRESENT: normal dorsalis pedis pul, +2 pedal pulses bilateral Vascular exam: PRESENT: normal capillary refill GI/Abdominal exam: PRESENT: normal bowel sounds, soft. ABSENT: distended, guarding, mass, organolmegaly, rebound, tenderness Rectal exam: PRESENT: deferred Neurological exam: PRESENT: alert, awake, oriented to person. ABSENT: motor sensory deficit Psychiatric exam: PRESENT: appropriate affect, normal mood. ABSENT: homicidal ideation, suicidal ideation Skin exam: PRESENT: dry, intact, warm. ABSENT: cyanosis, rash Results Laboratory Results: 03/07/19 18:02 03/07/19 18:02 Impressions: Chest X-Ray 02/20/19 00:00 IMPRESSION: Left central venous catheter, no pneumothorax. Blunted right costophrenic angle could be secondary to pleural fluid. KUB X-Ray 03/01/19 06:00 IMPRESSION: Grossly nonobstructive bowel gas pattern Knee X-Ray 03/02/19 00:00 IMPRESSION: Degenerative changes involving the left knee. The right total knee prosthesis appears to be in satisfactory position. copyright 2011 [employer]- All Rights Reserved Assessment & Plan - Diagnosis (1) Adult failure to thrive syndrome Is this a current diagnosis for this admission?: Yes (2) Gastroenteritis Is this a current diagnosis for this admission?: Yes (3) Hypoalbuminemia Is this a current diagnosis for this admission?: Yes (4) Hypocalcemia Is this a current diagnosis for this admission?: Yes (5) Hypokalemia Is this a current diagnosis for this admission?: Yes (6) Hypothyroidism Qualifiers: Hypothyroidism type: unspecified Qualified Code(s): E03.9 - Hypothyroidism, unspecified Is this a current diagnosis for this admission?: Yes (7) Chronic kidney disease, stage 3 Is this a current diagnosis for this admission?: Yes - Time Time Spent with patient: 25-34 minutes Level of Care: IMCU Medications reviewed and adjusted accordingly: Yes Anticipated discharge: Home with Homehealth Within: Other - Plan Summary Plan Summary: Continues to encourage p.o. intake Continues to current medications
[2019-03-09] MEDS: FAT EMULSIONS 250 ML IV SCH (11:53)
[2019-03-09] MEDS: MAGNESIUM OXIDE 400 MG TABLET PO SCH (11:54)
[2019-03-09] MEDS: LEVETIRACETAM ORAL SOLN 500 MG/5 ML UDCUP PO SCH ×2 (11:54→22:08)
[2019-03-09] MEDS: LACTOBACILLUS ACIDOPHILUS 250 MG TAB PO SCH ×2 (11:54→17:45)
[2019-03-09] MEDS: ASPIRIN 81 MG TABLET, ENT COATED PO SCH (11:55)
[2019-03-09] MEDS: CHOLECALCIFEROL (D3) 1,000 UNIT (25 MCG) TABLET PO SCH (11:55)
[2019-03-09] MEDS: LUBIPROSTONE 24 MCG CAPSULE PO SCH ×2 (11:55→17:45)
[2019-03-09] MEDS: ALLOPURINOL 100 MG TABLET PO SCH (11:55)
[2019-03-09] MEDS: CLOBETASOL PROPIONATE 0.05% CREAM 15 GM TP SCH (11:57)
[2019-03-09] MEDS: METOPROLOL SUCCINATE 50 MG TAB.SR.24H PO SCH (11:58)
[2019-03-09] MEDS: AMINO ACIDS 5 %/DEXTROSE 20 % 1,000 ML IV PRN (17:01)
[2019-03-09] MEDS: MEGESTROL ACETATE SUSP 400 MG/10 ML UDCUP PO SCH (17:01)
[2019-03-09] MEDS: AMLODIPINE BESYLATE 10 MG TABLET PO SCH (17:37)
--- NOTE | 2019-03-09 19:31 | PDOC CONSULTATION ---
Consultation Consult Date: 03/09/19 Provider Consulted: SARAH BARNARD Consult reason:: evaluate for PEG placement History of Present Illness Admission Date/PCP: 02/20/19 16:52 MARY RASHID MD Patient complains of: Malnutrition History of Present Illness: IVY CLAIRE is a 78 year old female with history of CVA in the past currently in the hospital for dehydration and failure to thrive and malnutrition. Patient has had a poor appetite and surgical consultation being obtained for a possible PEG placement. In the last several days however patient's appetite seems to have improved and the patient and the patient's family is uncertain about whether they want to proceed with a feeding tube. She denies any prior abdominal surgeries. She apparently had anemia and was diagnosed with gastritis on her last endoscopy. Past Medical History Cardiac Medical History: Reports: Hyperlipidema, Hypertension, Pulmonary Embolis m - 2 blood clots in her lungs a few years ago Denies: Atrial Fibrillation, Congestive Heart Failure, Coronary Artery Disease, Myocardial Infarction, Peripheral Vascular Disease, Heart Murmur Pulmonary Medical History: Reports: Bronchitis Denies: Asthma, Chronic Obstructive Pulmonary Disease (COPD), Pneumonia, Respiratory Failure, Sleep Apnea, Tuberculosis Neurological Medical History: Comment Only: Seizures - UNSURE Endocrine Medical History: Reports: Hypothyroidism Renal/ Medical History: Denies: End Stage Renal Disease Malignancy Medical History: Denies: Leukemia, Lung Cancer GI Medical History: Denies: Hepatitis, Hiatal Hernia Musculoskeltal Medical History: Reports: Arthritis, Gout Denies: Fibromyalgia Psychiatric Medical History: Reports: Depression Hematology: Reports: Anemia Denies: Hemophilia, Sickle Cell Disease Infectious Medical History: Denies: HIV Past Surgical History Past Surgical History: Reports: Orthopedic Surgery - R knee replacement Denies: Amputation, Appendectomy, Section, Cholecystectomy, Coronary Artery Bypass Graft, Gastric Bypass Surgery, Herniorrhaphy, Hysterectomy, Mastectomy, Pacemaker, Tonsillectomy, Tubal Ligation Social History Smoking Status: Former Smoker Electronic Cigarette use?: No Frequency of Alcohol Use: None Hx Recreational Drug Use: No Drugs: None Hx Prescription Drug Abuse: No - Advance Directive Resuscitation Status: Full Code Family History Family History: Reviewed & Not Pertinent Parental Family History Reviewed: No Children Family History Reviewed: No Sibling(s) Family History Reviewed.: No Medication/Allergy Home Medications: Allopurinol [Zyloprim 100 mg Tablet] 100 mg PO DAILY 02/20/19 Amlodipine Besylate [Norvasc 10 mg Tablet] 10 mg PO DAILY 02/20/19 Apixaban [Eliquis 5 mg Tablet] 5 mg PO BID 02/20/19 Aspirin [Ecotrin 81 mg EC Tablet] 81 mg PO DAILY 02/20/19 Atorvastatin Calcium [Lipitor 40 mg Tablet] 40 mg PO QHS 02/20/19 Cholecalciferol (Vitamin D3) [Vitamin D3 1000 Unit Tablet] 2,000 unit PO DAILY 02/20/19 Cinacalcet HCl [Sensipar 30 Mg Tablet] 30 mg PO BID 02/20/19 Clobetasol Propionate [Temovate 0.05% Cream 15 Gm] 1 applic TP DAILY 02/20/19 Ferrous Sulfate [Feosol 325 mg Tablet] 325 mg PO QHS 02/20/19 Gabapentin [Neurontin 100 mg Capsule] 200 mg PO QHS 02/20/19 L.acidoph/L.bulg/B.bif/S.therm [Bacid Caplet] 2 each PO BID 02/20/19 Lacosamide [Vimpat 100 mg Tablet] 100 mg PO Q12 02/20/19 Levetiracetam 1,000 mg PO Q12 02/20/19 Levothyroxine Sodium [Synthroid 0.075 mg Tablet] 0.075 mg PO Q6AM 02/20/19 Lubiprostone [Amitiza 24 Mcg Capsule] 24 mcg PO BID 02/20/19 Magnesium Oxide [Mag-Ox 400 mg Tablet] 400 mg PO DAILY 02/20/19 Megestrol Acetate [Megace [place] 400 mg/10 ml Udcup] 400 mg PO DAILY 02/20/19 Metoprolol Succinate [Toprol Xl 50 mg Tab.sr] 50 mg PO DAILY 02/20/19 Metronidazole [Flagyl 500 mg Tablet] 500 mg PO Q6 02/20/19 Ondansetron HCl [Zofran 8 mg Tablet] 8 mg PO Q4HP PRN 02/20/19 Allergies/Adverse Reactions: steriods Allergy (Uncoded 08/10/18 12:33) steroids Adverse Reaction (Intermediate, Uncoded 08/10/18 12:33) Physical Exam Vital Signs: Temp Pulse Resp BP Pulse Ox 98.5 F 101 H 17 108/58 L 99 03/09/19 15:11 03/09/19 15:11 03/09/19 15:11 03/09/19 15:11 03/09/19 15:11 Intake & Output 03/08/19 03/09/19 03/10/19 06:59 06:59 06:59 Intake Total 220 200 970 Output Total 875 1000 1000 Balance -655 -800 -30 Weight 103.9 kg 102.7 kg General appearance: PRESENT: no acute distress, cooperative Eye exam: PRESENT: conjunctiva pink Respiratory exam: PRESENT: clear to auscultation heidi Cardiovascular exam: PRESENT: RRR GI/Abdominal exam: PRESENT: other - Soft, nondistended, nontender to palpation. No visible upper abdominal scars. Results Laboratory Results: 03/07/19 18:02 03/07/19 18:02 Impressions: Chest X-Ray 02/20/19 00:00 IMPRESSION: Left central venous catheter, no pneumothorax. Blunted right costophrenic angle could be secondary to pleural fluid. KUB X-Ray 03/01/19 06:00 IMPRESSION: Grossly nonobstructive bowel gas pattern Knee X-Ray 03/02/19 00:00 IMPRESSION: Degenerative changes involving the left knee. The right total knee prosthesis appears to be in satisfactory position. copyright 2011 [employer]- All Rights Reserved Assessment & Plan - Diagnosis (1) Adult failure to thrive syndrome Is this a current diagnosis for this admission?: Yes Plan: With malnutrition. Patient may benefit from a PEG placement however the family is undecided.The consensus opinion of the family is to wait to see how well she eats in the next several days prior to deciding on a PEG placement. Please call us if they agree to proceed with PEG placement.
[2019-03-09] MEDS: TRAMADOL HCL 50 MG TABLET PO PRN (20:14)
[2019-03-09] MEDS: GABAPENTIN 100 MG CAPSULE PO SCH (22:07)
[2019-03-09] MEDS: ATORVASTATIN CALCIUM 40 MG TABLET PO SCH (22:08)
[2019-03-09] MEDS: FERROUS SULFATE 325 MG TABLET PO SCH (22:08)
[2019-03-10] MEDS: INSULIN REG, HUMAN 100 UNIT/ML 3 ML VIAL (PYX) SUBCUT SCH ×4 (00:19→19:21)
[2019-03-10] MEDS: LEVOTHYROXINE SODIUM 0.075 MG TABLET PO SCH (05:54)
[2019-03-10 07:02] LABS: BLOOD UREA NITROGEN 21 mg/dL (7-20); CALCIUM 9.1 mg/dL (8.4-10.2); CARBON DIOXIDE 26 mmol/L (22-30); GLUCOSE 93 mg/dL (75-110); POTASSIUM 5.5 mmol/L (3.6-5.0)
[2019-03-10 07:08] LABS: CHLORIDE 105 mmol/L (98-107)
[2019-03-10 07:10] LABS: ABSOLUTE BASOPHILS # (AUTO) 0.1 10^3/uL (0.0-0.2); ABSOLUTE EOSINOPHILS # (AUTO) 0.4 10^3/uL (0.0-0.6); ABSOLUTE LYMPHOCYTES (AUTO) 1.6 10^3/uL (0.5-4.7); ABSOLUTE MONOCYTES (AUTO) 0.8 10^3/uL (0.1-1.4); ABSOLUTE NEUT (AUTO) 4.3 10^3/uL (1.7-8.2); BASOPHILS % (AUTO) 1.2 % (0-2); EOSINOPHILS % (AUTO) 5.3 % (0-6); HEMOGLOBIN 8.1 g/dL (12.0-15.5); LYMPHOCYTES % (AUTO) 22.4 % (13-45); MEAN CORPUSCULAR HEMOGLOBIN 29.1 pg (27.0-33.4); MEAN CORPUSCULAR VOLUME 86 fl (80-97); MONOCYTES % (AUTO) 10.7 % (3-13); PLATELET COUNT 389 10^3/uL (150-450); SEGMENTED NEUTROPHILS % (AUTO) 60.4 % (42-78); TOTAL CELLS COUNTED % (AUTO) 100 %; WHITE BLOOD COUNT 7.1 10^3/uL (4.0-10.5)
[2019-03-10 07:11] LABS: ANION GAP 3 (5-19)
[2019-03-10] MEDS: MAGNESIUM OXIDE 400 MG TABLET PO SCH (10:29)
[2019-03-10] MEDS: LEVETIRACETAM ORAL SOLN 500 MG/5 ML UDCUP PO SCH ×2 (10:29→22:32)
[2019-03-10] MEDS: ASPIRIN 81 MG TABLET, ENT COATED PO SCH (10:29)
[2019-03-10] MEDS: ALLOPURINOL 100 MG TABLET PO SCH (10:29)
[2019-03-10] MEDS: LUBIPROSTONE 24 MCG CAPSULE PO SCH ×2 (10:29→17:32)
[2019-03-10] MEDS: LACTOBACILLUS ACIDOPHILUS 250 MG TAB PO SCH ×2 (10:29→17:39)
[2019-03-10] MEDS: CHOLECALCIFEROL (D3) 1,000 UNIT (25 MCG) TABLET PO SCH (10:29)
[2019-03-10] MEDS: METOPROLOL SUCCINATE 50 MG TAB.SR.24H PO SCH (10:29)
[2019-03-10] MEDS: AMLODIPINE BESYLATE 10 MG TABLET PO SCH (10:29)
[2019-03-10] MEDS: CLOBETASOL PROPIONATE 0.05% CREAM 15 GM TP SCH (10:31)
--- NOTE | 2019-03-10 10:38 | PDOC PROGRESS REPORT ---
Subjective Progress Note for:: 03/10/19 Subjective:: Patient is currently doing well Patient's still having poor p.o. intake Seen by the surgery for the PEG tube placement Patient's potassium is slightly elevated today denied any chest pain no short of breath Reason For Visit: ANEMIA,VOMITING, ACUTE CKD Physical Exam Vital Signs: Temp Pulse Resp BP Pulse Ox 98.1 F 90 16 96/66 L 99 03/10/19 07:14 03/10/19 07:14 03/10/19 07:14 03/10/19 07:14 03/10/19 07:14 Intake & Output 03/09/19 03/10/19 03/11/19 06:59 06:59 06:59 Intake Total 200 970 Output Total 1000 1900 Balance -800 -930 Weight 102.7 kg 102.4 kg General appearance: PRESENT: no acute distress, well-developed, well-nourished Head exam: PRESENT: atraumatic, normocephalic Eye exam: PRESENT: conjunctiva pink, EOMI, PERRLA. ABSENT: scleral icterus Ear exam: PRESENT: normal external ear exam Mouth exam: PRESENT: moist, tongue midline Neck exam: PRESENT: full ROM. ABSENT: carotid bruit, JVD, lymphadenopathy, thyromegaly Respiratory exam: PRESENT: clear to auscultation heidi Cardiovascular exam: PRESENT: RRR. ABSENT: diastolic murmur, rubs, systolic murmur Pulses: PRESENT: normal dorsalis pedis pul, +2 pedal pulses bilateral Vascular exam: PRESENT: normal capillary refill GI/Abdominal exam: PRESENT: normal bowel sounds, soft. ABSENT: distended, guarding, mass, organolmegaly, rebound, tenderness Rectal exam: PRESENT: deferred Musculoskeletal exam: PRESENT: ambulatory Neurological exam: PRESENT: alert, awake, oriented to person, oriented to place, oriented to time, oriented to situation, CN II-XII grossly intact. ABSENT: motor sensory deficit Psychiatric exam: PRESENT: appropriate affect, normal mood. ABSENT: homicidal ideation, suicidal ideation Skin exam: PRESENT: dry, intact, warm. ABSENT: cyanosis, rash Results Laboratory Results: 03/10/19 06:00 03/10/19 06:00 03/10/19 03/10/19 06:00 06:00 WBC 7.1 RBC 2.80 L Hgb 8.1 L Hct 24.0 L MCV 86 MCH 29.1 MCHC 34.0 RDW 20.0 H Plt Count 389 Seg Neutrophils % 60.4 Sodium 134.1 L Potassium 5.5 H Chloride 105 Carbon Dioxide 26 Anion Gap 3 L BUN 21 H Creatinine 0.89 Est GFR ( Amer) > 60 Glucose 93 Calcium 9.1 Impressions: Chest X-Ray 02/20/19 00:00 IMPRESSION: Left central venous catheter, no pneumothorax. Blunted right costophrenic angle could be secondary to pleural fluid. KUB X-Ray 03/01/19 06:00 IMPRESSION: Grossly nonobstructive bowel gas pattern Knee X-Ray 03/02/19 00:00 IMPRESSION: Degenerative changes involving the left knee. The right total knee prosthesis appears to be in satisfactory position. copyright 2010 [employer]- All Rights Reserved Assessment & Plan - Diagnosis (1) Adult failure to thrive syndrome Is this a current diagnosis for this admission?: Yes (2) Gastroenteritis Is this a current diagnosis for this admission?: Yes (3) Hypoalbuminemia Is this a current diagnosis for this admission?: Yes (4) Hypocalcemia Is this a current diagnosis for this admission?: Yes (5) Hypokalemia Is this a current diagnosis for this admission?: Yes (6) Hypothyroidism Qualifiers: Hypothyroidism type: unspecified Qualified Code(s): E03.9 - Hypothyroidism, unspecified Is this a current diagnosis for this admission?: Yes (7) Chronic kidney disease, stage 3 Is this a current diagnosis for this admission?: Yes - Time Time Spent with patient: 25-34 minutes Level of Care: IMCU Medications reviewed and adjusted accordingly: Yes Anticipated discharge: Home, Other Within: Other - Plan Summary Plan Summary: Low potassiums in the TPN We will give her 1 dose of valtessa
[2019-03-10] MEDS: MEGESTROL ACETATE SUSP 400 MG/10 ML UDCUP PO SCH (10:50)
[2019-03-10] MEDS: AMINO ACIDS 5 %/DEXTROSE 20 % 1,000 ML IV PRN (16:35)
[2019-03-10] MEDS: PATIROMER 8.4 GM SUSP PACKET PO SCH (17:39)
[2019-03-10] MEDS: FERROUS SULFATE 325 MG TABLET PO SCH (22:33)
[2019-03-10] MEDS: GABAPENTIN 100 MG CAPSULE PO SCH (22:33)
[2019-03-10] MEDS: ATORVASTATIN CALCIUM 40 MG TABLET PO SCH (22:33)
[2019-03-11] MEDS: INSULIN REG, HUMAN 100 UNIT/ML 3 ML VIAL (PYX) SUBCUT SCH ×4 (06:09→18:26)
[2019-03-11] MEDS: LEVOTHYROXINE SODIUM 0.075 MG TABLET PO SCH (06:15)
[2019-03-11 07:26] LABS: BLOOD UREA NITROGEN 27 mg/dL (7-20); CARBON DIOXIDE 26 mmol/L (22-30); CHLORIDE 108 mmol/L (98-107); GLUCOSE 106 mg/dL (75-110)
[2019-03-11 07:27] LABS: POTASSIUM 5.6 mmol/L (3.6-5.0)
[2019-03-11 07:34] LABS: ANION GAP 1 (5-19)
--- NOTE | 2019-03-11 10:30 | PDOC PROGRESS REPORT ---
Subjective Progress Note for:: 03/11/19 Subjective:: Patient is currently doing well except patient's potassium is still running high as per discussed with the pharmacy unable to go without potassiums in the TPN Patient seen by the surgery plan to schedule for the PEG tube's with the poor p.o. intake According to the nursing staff patient ate all the candy and other food when the patient's family brought from outside I think patient should eat some of the food if patient does not like the food here may be low-sodium food from the home she would like it works or not works We hold the TPN today Reason For Visit: ANEMIA,VOMITING, ACUTE CKD Physical Exam Vital Signs: Temp Pulse Resp BP Pulse Ox 98.4 F 99 17 107/52 L 100 03/11/19 08:19 03/11/19 08:19 03/11/19 08:19 03/11/19 08:19 03/11/19 08:19 Intake & Output 03/10/19 03/11/19 03/12/19 06:59 06:59 06:59 Intake Total 970 465 Output Total 1900 1050 Balance -930 -585 Weight 102.4 kg 97.9 kg General appearance: PRESENT: no acute distress, well-developed, well-nourished Head exam: PRESENT: atraumatic, normocephalic Eye exam: PRESENT: conjunctiva pink, EOMI, PERRLA. ABSENT: scleral icterus Ear exam: PRESENT: normal external ear exam Mouth exam: PRESENT: moist, tongue midline Neck exam: PRESENT: full ROM. ABSENT: carotid bruit, JVD, lymphadenopathy, thyromegaly Respiratory exam: PRESENT: clear to auscultation heidi Cardiovascular exam: PRESENT: RRR. ABSENT: diastolic murmur, rubs, systolic murmur Pulses: PRESENT: normal dorsalis pedis pul, +2 pedal pulses bilateral Vascular exam: PRESENT: normal capillary refill GI/Abdominal exam: PRESENT: normal bowel sounds, soft. ABSENT: distended, guarding, mass, organolmegaly, rebound, tenderness Rectal exam: PRESENT: deferred Neurological exam: PRESENT: alert, awake, oriented to person. ABSENT: motor sensory deficit Psychiatric exam: PRESENT: appropriate affect, normal mood. ABSENT: homicidal ideation, suicidal ideation Skin exam: PRESENT: dry, intact, warm. ABSENT: cyanosis, rash Results Laboratory Results: 03/10/19 06:00 03/11/19 07:00 03/11/19 07:00 Sodium 134.8 L Potassium 5.6 H Chloride 108 H Carbon Dioxide 26 Anion Gap 1 L BUN 27 H Creatinine 1.02 Est GFR ( Amer) > 60 Glucose 106 Calcium 9.0 Impressions: Chest X-Ray 02/20/19 00:00 IMPRESSION: Left central venous catheter, no pneumothorax. Blunted right costophrenic angle could be secondary to pleural fluid. KUB X-Ray 03/01/19 06:00 IMPRESSION: Grossly nonobstructive bowel gas pattern Knee X-Ray 03/02/19 00:00 IMPRESSION: Degenerative changes involving the left knee. The right total knee prosthesis appears to be in satisfactory position. copyright 2010 [employer]- All Rights Reserved Assessment & Plan - Diagnosis (1) Adult failure to thrive syndrome Is this a current diagnosis for this admission?: Yes (2) Gastroenteritis Is this a current diagnosis for this admission?: Yes (3) Hypoalbuminemia Is this a current diagnosis for this admission?: Yes (4) Hypocalcemia Is this a current diagnosis for this admission?: Yes (5) Hypokalemia Is this a current diagnosis for this admission?: Yes (6) Hypothyroidism Qualifiers: Hypothyroidism type: unspecified Qualified Code(s): E03.9 - Hypothyroidism, unspecified Is this a current diagnosis for this admission?: Yes (7) Chronic kidney disease, stage 3 Is this a current diagnosis for this admission?: Yes - Time Time Spent with patient: 15-24 minutes Level of Care: IMCU Medications reviewed and adjusted accordingly: Yes Anticipated discharge: SNF Within: Other - Plan Summary Plan Summary: We hold the TPN's We will repeat the potassium in the morning Start to encouraged more p.o. intake Patient scheduled for the PEG tube placements
[2019-03-11] MEDS: LEVETIRACETAM ORAL SOLN 500 MG/5 ML UDCUP PO SCH ×2 (10:34→21:38)
[2019-03-11] MEDS: CHOLECALCIFEROL (D3) 1,000 UNIT (25 MCG) TABLET PO SCH (10:35)
[2019-03-11] MEDS: LACTOBACILLUS ACIDOPHILUS 250 MG TAB PO SCH ×2 (10:35→17:55)
[2019-03-11] MEDS: ASPIRIN 81 MG TABLET, ENT COATED PO SCH (10:35)
[2019-03-11] MEDS: MAGNESIUM OXIDE 400 MG TABLET PO SCH (10:35)
[2019-03-11] MEDS: MEGESTROL ACETATE SUSP 400 MG/10 ML UDCUP PO SCH (10:35)
[2019-03-11] MEDS: METOPROLOL SUCCINATE 50 MG TAB.SR.24H PO SCH (10:35)
[2019-03-11] MEDS: LUBIPROSTONE 24 MCG CAPSULE PO SCH ×2 (10:35→17:55)
[2019-03-11] MEDS: AMLODIPINE BESYLATE 10 MG TABLET PO SCH (10:35)
[2019-03-11] MEDS: ALLOPURINOL 100 MG TABLET PO SCH (10:35)
[2019-03-11] MEDS: CLOBETASOL PROPIONATE 0.05% CREAM 15 GM TP SCH (10:36)
[2019-03-11] MEDS: PATIROMER 8.4 GM SUSP PACKET PO SCH (17:55)
[2019-03-11] MEDS: GABAPENTIN 100 MG CAPSULE PO SCH (21:38)
[2019-03-11] MEDS: FERROUS SULFATE 325 MG TABLET PO SCH (21:38)
[2019-03-11] MEDS: ATORVASTATIN CALCIUM 40 MG TABLET PO SCH (21:38)
[2019-03-12] MEDS: INSULIN REG, HUMAN 100 UNIT/ML 3 ML VIAL (PYX) SUBCUT SCH ×4 (01:44→17:57)
[2019-03-12] MEDS: LEVOTHYROXINE SODIUM 0.075 MG TABLET PO SCH (05:08)
[2019-03-12 05:59] LABS: ABSOLUTE EOSINOPHILS # (AUTO) 0.3 10^3/uL (0.0-0.6); ABSOLUTE LYMPHOCYTES (AUTO) 1.7 10^3/uL (0.5-4.7); ABSOLUTE MONOCYTES (AUTO) 0.8 10^3/uL (0.1-1.4); ABSOLUTE NEUT (AUTO) 5.4 10^3/uL (1.7-8.2); BASOPHILS % (AUTO) 0.6 % (0-2); EOSINOPHILS % (AUTO) 3.8 % (0-6); HEMATOCRIT 22.4 % (36.0-47.0); LYMPHOCYTES % (AUTO) 20.8 % (13-45); MEAN CORPUSCULAR HEMOGLOBIN 29.4 pg (27.0-33.4); MEAN CORPUSCULAR HGB CONC 34.3 g/dL (32.0-36.0); MEAN CORPUSCULAR VOLUME 86 fl (80-97); MONOCYTES % (AUTO) 9.3 % (3-13); PLATELET COUNT 380 10^3/uL (150-450); SEGMENTED NEUTROPHILS % (AUTO) 65.5 % (42-78); TOTAL CELLS COUNTED % (AUTO) 100 %; WHITE BLOOD COUNT 8.3 10^3/uL (4.0-10.5)
[2019-03-12 06:05] LABS: HEMOGLOBIN 7.7 g/dL (12.0-15.5)
[2019-03-12 06:15] LABS: BLOOD UREA NITROGEN 30 mg/dL (7-20); CALCIUM 9.1 mg/dL (8.4-10.2); GLUCOSE 104 mg/dL (75-110); POTASSIUM 5.7 mmol/L (3.6-5.0)
[2019-03-12 06:21] LABS: ANION GAP 2 (5-19); CARBON DIOXIDE 27 mmol/L (22-30); CHLORIDE 107 mmol/L (98-107)
[2019-03-12] MEDS: MEGESTROL ACETATE SUSP 400 MG/10 ML UDCUP PO SCH (09:49)
[2019-03-12] MEDS: CLOBETASOL PROPIONATE 0.05% CREAM 15 GM TP SCH (09:49)
[2019-03-12] MEDS: LEVETIRACETAM ORAL SOLN 500 MG/5 ML UDCUP PO SCH ×2 (09:49→22:25)
[2019-03-12] MEDS: MAGNESIUM OXIDE 400 MG TABLET PO SCH (09:50)
[2019-03-12] MEDS: CHOLECALCIFEROL (D3) 1,000 UNIT (25 MCG) TABLET PO SCH (09:50)
[2019-03-12] MEDS: METOPROLOL SUCCINATE 50 MG TAB.SR.24H PO SCH (09:50)
[2019-03-12] MEDS: LACTOBACILLUS ACIDOPHILUS 250 MG TAB PO SCH ×2 (09:50→17:58)
[2019-03-12] MEDS: LUBIPROSTONE 24 MCG CAPSULE PO SCH ×2 (09:50→17:58)
[2019-03-12] MEDS: ASPIRIN 81 MG TABLET, ENT COATED PO SCH (09:50)
[2019-03-12] MEDS: AMLODIPINE BESYLATE 10 MG TABLET PO SCH (09:50)
[2019-03-12] MEDS: ALLOPURINOL 100 MG TABLET PO SCH (09:50)
[2019-03-12] MEDS ORDERED: NORMAL SALINE 250 ML IV PRN ×2 (10:55)
--- NOTE | 2019-03-12 10:55 | PDOC PROGRESS REPORT ---
Subjective Progress Note for:: 03/12/19 Subjective:: Patient is currently doing fair Patient hemoglobin is 7.7 Patient had a endoscopy and a colonoscopy done this admissions Patient no obvious blood loss Patient received a blood transfusion and this admissions to Patient's p.o. intake is very poor Reason For Visit: ANEMIA,VOMITING, ACUTE CKD Physical Exam Vital Signs: Temp Pulse Resp BP Pulse Ox 98.6 F 99 16 117/58 L 99 03/12/19 07:59 03/12/19 07:59 03/12/19 07:59 03/12/19 07:59 03/12/19 07:59 Intake & Output 03/11/19 03/12/19 03/13/19 06:59 06:59 06:59 Intake Total 465 1175 Output Total 1050 2650 Balance -585 -1475 Weight 97.9 kg 101.6 kg General appearance: PRESENT: no acute distress, well-developed, well-nourished Head exam: PRESENT: atraumatic, normocephalic Eye exam: PRESENT: conjunctiva pink, EOMI, PERRLA. ABSENT: scleral icterus Ear exam: PRESENT: normal external ear exam Mouth exam: PRESENT: moist, tongue midline Neck exam: PRESENT: full ROM. ABSENT: carotid bruit, JVD, lymphadenopathy, thyromegaly Respiratory exam: PRESENT: clear to auscultation heidi Cardiovascular exam: PRESENT: RRR. ABSENT: diastolic murmur, rubs, systolic murmur Vascular exam: PRESENT: normal capillary refill GI/Abdominal exam: PRESENT: normal bowel sounds, soft. ABSENT: distended, guarding, mass, organolmegaly, rebound, tenderness Rectal exam: PRESENT: deferred Neurological exam: PRESENT: alert, awake, oriented to person, oriented to place, oriented to time, oriented to situation, CN II-XII grossly intact. ABSENT: motor sensory deficit Psychiatric exam: PRESENT: appropriate affect, normal mood. ABSENT: homicidal ideation, suicidal ideation Skin exam: PRESENT: dry, intact, warm. ABSENT: cyanosis, rash Results Laboratory Results: 03/12/19 05:20 03/12/19 05:20 03/12/19 03/12/19 05:20 05:20 WBC 8.3 RBC 2.60 L Hgb 7.7 L Hct 22.4 L MCV 86 MCH 29.4 MCHC 34.3 RDW 20.0 H Plt Count 380 Seg Neutrophils % 65.5 Sodium 136.1 L Potassium 5.7 H Chloride 107 Carbon Dioxide 27 Anion Gap 2 L BUN 30 H Creatinine 1.00 Est GFR ( Amer) > 60 Glucose 104 Calcium 9.1 Impressions: Chest X-Ray 02/20/19 00:00 IMPRESSION: Left central venous catheter, no pneumothorax. Blunted right costophrenic angle could be secondary to pleural fluid. KUB X-Ray 03/01/19 06:00 IMPRESSION: Grossly nonobstructive bowel gas pattern Knee X-Ray 03/02/19 00:00 IMPRESSION: Degenerative changes involving the left knee. The right total knee prosthesis appears to be in satisfactory position. copyright 2011 [employer]- All Rights Reserved Assessment & Plan - Diagnosis (1) Adult failure to thrive syndrome Is this a current diagnosis for this admission?: Yes Plan: Patient is scheduled for the PEG tube placement as we currently hold the TPN (2) Gastroenteritis Is this a current diagnosis for this admission?: Yes Plan: Hanson all resolved (3) Hypoalbuminemia Is this a current diagnosis for this admission?: Yes (4) Hypocalcemia Is this a current diagnosis for this admission?: Yes (5) Hypokalemia Is this a current diagnosis for this admission?: Yes (6) Hypothyroidism Qualifiers: Hypothyroidism type: unspecified Qualified Code(s): E03.9 - Hypothyroidism, unspecified Is this a current diagnosis for this admission?: Yes (7) Chronic kidney disease, stage 3 Is this a current diagnosis for this admission?: Yes (8) Anemia due to GI blood loss Is this a current diagnosis for this admission?: Yes Plan: Patient had a endoscopy and colonoscopy done with some mild superficial ulcerations on the endoscopy we will get the stool for the guaiac Start on a Protonix Get the iron study No active bleeding is seen Consider blood transfusion - Time Time Spent with patient: 15-24 minutes Level of Care: IMCU Medications reviewed and adjusted accordingly: Yes Anticipated discharge: Home Within: Other - Plan Summary Plan Summary: Transfusion of 1 unit of the bloods Continues to current medications
[2019-03-12 11:14] LABS: ABSOLUTE RETICS # 0.056 10^6/uL (0.028-0.122); RETICULOCYTE COUNT (AUTO) 2.16 % (0.66-2.85)
[2019-03-12 11:26] LABS: IRON(TIBC) 39.1 ug/dL (37-170)
[2019-03-12] MEDS ORDERED: SODIUM POLYSTYRENE SULFONATE 15 GM/60 ML PO ONE (11:30)
[2019-03-12] MEDS ORDERED: SODIUM POLYSTYRENE SULFONATE 15 GM/60 ML ONE (14:04)
[2019-03-12] MEDS: DEXTROSE 5%-1/2 NORMAL SALINE 1,000 ML IV PRN (14:05)
[2019-03-12] MEDS: PANTOPRAZOLE SODIUM 40 MG TABLET.DR PO SCH (17:58)
[2019-03-12] MEDS: PATIROMER 8.4 GM SUSP PACKET PO SCH (17:58)
[2019-03-12] MEDS ORDERED: INSULIN REG, HUMAN 100 UNIT/ML 3 ML VIAL (PYX) SUBCUT SCH (22:00)
[2019-03-12] MEDS: INSULIN LISPRO 100 UNIT/ML 3 ML VIAL SUBCUT SCH (22:00)
[2019-03-12] MEDS: GABAPENTIN 100 MG CAPSULE PO SCH (22:26)
[2019-03-12] MEDS: FERROUS SULFATE 325 MG TABLET PO SCH (22:26)
[2019-03-12] MEDS: ATORVASTATIN CALCIUM 40 MG TABLET PO SCH (22:26)
[2019-03-13 04:36] LABS: ABSOLUTE EOSINOPHILS # (AUTO) 0.3 10^3/uL (0.0-0.6); ABSOLUTE LYMPHOCYTES (AUTO) 1.3 10^3/uL (0.5-4.7); ABSOLUTE MONOCYTES (AUTO) 0.8 10^3/uL (0.1-1.4); ABSOLUTE NEUT (AUTO) 8.2 10^3/uL (1.7-8.2); BASOPHILS % (AUTO) 0.4 % (0-2); EOSINOPHILS % (AUTO) 2.5 % (0-6); HEMATOCRIT 24.4 % (36.0-47.0); HEMOGLOBIN 8.4 g/dL (12.0-15.5); LYMPHOCYTES % (AUTO) 12.6 % (13-45); MEAN CORPUSCULAR HEMOGLOBIN 29.7 pg (27.0-33.4); MEAN CORPUSCULAR HGB CONC 34.3 g/dL (32.0-36.0); MEAN CORPUSCULAR VOLUME 87 fl (80-97); MONOCYTES % (AUTO) 7.2 % (3-13); PLATELET COUNT 411 10^3/uL (150-450); RED BLOOD COUNT 2.82 10^6/uL (3.72-5.28); RED CELL DISTRIBUTION WIDTH 19.9 % (11.5-14.0); SEGMENTED NEUTROPHILS % (AUTO) 77.3 % (42-78); TOTAL CELLS COUNTED % (AUTO) 100 %; WHITE BLOOD COUNT 10.7 10^3/uL (4.0-10.5)
[2019-03-13] MEDS: PANTOPRAZOLE SODIUM 40 MG TABLET.DR PO SCH ×2 (05:26→17:24)
[2019-03-13] MEDS: LEVOTHYROXINE SODIUM 0.075 MG TABLET PO SCH (05:26)
[2019-03-13 05:34] LABS: BLOOD UREA NITROGEN 22 mg/dL (7-20); CALCIUM 9.7 mg/dL (8.4-10.2); GLUCOSE 91 mg/dL (75-110)
[2019-03-13 05:39] LABS: CARBON DIOXIDE 23 mmol/L (22-30); CHLORIDE 109 mmol/L (98-107)
[2019-03-13 05:44] LABS: POTASSIUM 4.6 mmol/L (3.6-5.0)
[2019-03-13 05:45] LABS: ANION GAP 5 (5-19)
[2019-03-13] MEDS: INSULIN LISPRO 100 UNIT/ML 3 ML VIAL SUBCUT SCH ×4 (10:12→21:51)
[2019-03-13] MEDS: METOPROLOL SUCCINATE 50 MG TAB.SR.24H PO SCH (10:34)
[2019-03-13] MEDS: CHOLECALCIFEROL (D3) 1,000 UNIT (25 MCG) TABLET PO SCH (10:34)
[2019-03-13] MEDS: AMLODIPINE BESYLATE 10 MG TABLET PO SCH (10:35)
[2019-03-13] MEDS: ASPIRIN 81 MG TABLET, ENT COATED PO SCH (10:35)
[2019-03-13] MEDS: MEGESTROL ACETATE SUSP 400 MG/10 ML UDCUP PO SCH (10:35)
[2019-03-13] MEDS: ALLOPURINOL 100 MG TABLET PO SCH (10:35)
[2019-03-13] MEDS: MAGNESIUM OXIDE 400 MG TABLET PO SCH (10:35)
[2019-03-13] MEDS: LACTOBACILLUS ACIDOPHILUS 250 MG TAB PO SCH ×2 (10:35→17:24)
[2019-03-13] MEDS: LUBIPROSTONE 24 MCG CAPSULE PO SCH ×2 (10:35→17:24)
[2019-03-13] MEDS: LEVETIRACETAM ORAL SOLN 500 MG/5 ML UDCUP PO SCH ×2 (10:37→22:00)
[2019-03-13] MEDS: CLOBETASOL PROPIONATE 0.05% CREAM 15 GM TP SCH (10:38)
[2019-03-13 11:12] LABS: HEMATOCRIT 29.8 % (36.0-47.0); HEMOGLOBIN 10.1 g/dL (12.0-15.5); MEAN CORPUSCULAR HEMOGLOBIN 29.3 pg (27.0-33.4); MEAN CORPUSCULAR HGB CONC 33.8 g/dL (32.0-36.0); MEAN CORPUSCULAR VOLUME 87 fl (80-97); PLATELET COUNT 400 10^3/uL (150-450); RED BLOOD COUNT 3.44 10^6/uL (3.72-5.28); RED CELL DISTRIBUTION WIDTH 19.2 % (11.5-14.0); WHITE BLOOD COUNT 10.7 10^3/uL (4.0-10.5)
--- NOTE | 2019-03-13 12:27 | NEURO WORKBENCH EEG REPORT ---
EEG Report Patient: Ronnie Carbajal ID: [id number] Referring Doctor: Robin Mcarthur MD DOS: 03/13/19 Medications: Tylenol, zyloprim, Norvasc, aspirin, Lipitor, vitamin D3, temovate, feosol, Neurontin, porcine, insulin, bacid, Keppra, Synthroid, amitiza, mag-ox, megace, Toprol, Zofran, protonix, patiromer History This is a 78 year old right handed woman with a history of hypertension, hyperlipidemia, hypercholesterolemia, bronchitis, prior pulmonary emboli, chronic kidney disease, right kidney failure, arthritis, gout, degenerative disk disease, right knee replacement, hypothyroidism, depression, prior alcohol use, prior cigarette smoker, anemia, GERD, stroke 2017, possible seizure. She was admitted with anemia, vomiting, acute kidney disease. This EEG was requested for possible seizure. EEG Interpretation This EEG was recorded in the awake and minimal drowsy states. The awake EEG is characterized by a moderately-organized background without a noted posterior dominant rhythm. The remainder of the background consisted of a mix of alpha and theta with intermittent delta activity. There was significant artifact throughout the study, predominantly over the right that significantly impaired interpretation. There did not appear to be an asymmetry in the background but the artifact impaired definitive interpretation. Minimal drowsiness is characterized by mild slowing of the background. Photic stimulation resulted in no significant changes. There were occasional poor morphology sharp waves in the left central-parietal regions. There were also brief episodes of right facial twitching. The left sided sharp waves occurred during some episodes of facial twitching but also without noted facial twitching and they did not appear time- locked to the twitching. The EKG showed a regular rhythm however artifact impaired interpretation. EEG Classification Sharp waves, left central-parietal Generalized background slowing Significant artifact EEG Impression This EEG is abnormal. There were episodes of right facial twitching as well as sharp waves in the left central-parietal regions but there were no definitive electro-clinical seizures. However, the sharp waves are suggestive of an epileptic focus. The background is consistent with diffuse cerebral dysfunction. The significant artifact impaired interpretation. Treatment for seizures and a repeat EEG without artifact are recommended if clinically indicated. INTERPRETING NEUROLOGIST: Arminda Amin MD, CPC Board Certified in Neurology, with special qualification in Child Neurology, and in Clinical Neurophysiology [facility]
[2019-03-13] MEDS: PATIROMER 8.4 GM SUSP PACKET PO SCH (17:31)
--- NOTE | 2019-03-13 21:52 | PDOC PROGRESS REPORT ---
Subjective Progress Note for:: 03/13/19 Subjective:: Patient seen by the bedside, physical therapy stated that patient is not safe for ambulation not to get out of bed because of risk of fall. The dietary intake is improved no longer requiring TPN or PEG tube placement Reason For Visit: ANEMIA,VOMITING, ACUTE CKD Physical Exam Vital Signs: Temp Pulse Resp BP Pulse Ox 98.4 F 107 H 17 120/54 L 98 03/13/19 15:46 03/13/19 19:00 03/13/19 15:46 03/13/19 15:46 03/13/19 15:46 Intake & Output 03/12/19 03/13/19 03/14/19 06:59 06:59 06:59 Intake Total 1175 860 340 Output Total 2650 3050 600 Balance -1475 -2190 -260 Weight 101.6 kg 97.6 kg 97.6 kg General appearance: PRESENT: no acute distress Eye exam: PRESENT: PERRLA Respiratory exam: PRESENT: clear to auscultation heidi Cardiovascular exam: PRESENT: +S1, +S2 GI/Abdominal exam: PRESENT: soft Neurological exam: PRESENT: alert Results Laboratory Results: 03/13/19 10:55 03/13/19 04:10 03/12/19 03/13/19 03/13/19 11:28 00:30 04:10 WBC RBC Hgb Hct MCV MCH MCHC RDW Plt Count Seg Neutrophils % Sodium 136.7 L Potassium 4.6 D Chloride 109 H Carbon Dioxide 23 Anion Gap 5 BUN 22 H Creatinine 0.95 Est GFR ( Amer) > 60 Glucose 91 Calcium 9.7 Stool Occult Blood NEGATIVE Blood Type O NEGATIVE Antibody Screen NEGATIVE 03/13/19 03/13/19 04:10 10:55 WBC 10.7 H 10.7 H RBC 2.82 L 3.44 L Hgb 8.4 L 10.1 L Hct 24.4 L 29.8 L MCV 87 87 MCH 29.7 29.3 MCHC 34.3 33.8 RDW 19.9 H 19.2 H Plt Count 411 400 Seg Neutrophils % 77.3 Sodium Potassium Chloride Carbon Dioxide Anion Gap BUN Creatinine Est GFR ( Amer) Glucose Calcium Stool Occult Blood Blood Type Antibody Screen Impressions: Chest X-Ray 02/20/19 00:00 IMPRESSION: Left central venous catheter, no pneumothorax. Blunted right costophrenic angle could be secondary to pleural fluid. KUB X-Ray 03/01/19 06:00 IMPRESSION: Grossly nonobstructive bowel gas pattern Knee X-Ray 03/02/19 00:00 IMPRESSION: Degenerative changes involving the left knee. The right total knee prosthesis appears to be in satisfactory position. copyright 2010 [email or web address]- All Rights Reserved Assessment & Plan - Diagnosis (1) Gastroenteritis Is this a current diagnosis for this admission?: Yes (2) Hypokalemia Is this a current diagnosis for this admission?: Yes (3) Hypoalbuminemia Is this a current diagnosis for this admission?: Yes (4) Hypomagnesemia Is this a current diagnosis for this admission?: Yes (5) Hypocalcemia Is this a current diagnosis for this admission?: Yes (6) Diarrhea Qualifiers: Diarrhea type: unspecified type Qualified Code(s): R19.7 - Diarrhea, unspecified Is this a current diagnosis for this admission?: Yes (7) Anemia due to GI blood loss Is this a current diagnosis for this admission?: Yes (8) Weakness of both legs Is this a current diagnosis for this admission?: Yes Plan: MRI of LS SPine - Time Time Spent with patient: 25-34 minutes
[2019-03-13] MEDS: ATORVASTATIN CALCIUM 40 MG TABLET PO SCH (22:00)
[2019-03-13] MEDS: GABAPENTIN 100 MG CAPSULE PO SCH (22:00)
[2019-03-13] MEDS: FERROUS SULFATE 325 MG TABLET PO SCH (22:01)
[2019-03-14] MEDS: PANTOPRAZOLE SODIUM 40 MG TABLET.DR PO SCH ×2 (05:30→17:20)
[2019-03-14] MEDS: LEVOTHYROXINE SODIUM 0.075 MG TABLET PO SCH (05:30)
[2019-03-14] MEDS: DEXTROSE 5%-1/2 NORMAL SALINE 1,000 ML IV PRN (05:31)
[2019-03-14 06:00] LABS: ANION GAP 5 (5-19); BLOOD UREA NITROGEN 17 mg/dL (7-20); CALCIUM 9.9 mg/dL (8.4-10.2); CARBON DIOXIDE 23 mmol/L (22-30); CHLORIDE 111 mmol/L (98-107); GLUCOSE 92 mg/dL (75-110); POTASSIUM 4.3 mmol/L (3.6-5.0)
[2019-03-14] MEDS: INSULIN LISPRO 100 UNIT/ML 3 ML VIAL SUBCUT SCH ×4 (08:36→21:45)
[2019-03-14] MEDS: LUBIPROSTONE 24 MCG CAPSULE PO SCH ×2 (10:12→21:10)
[2019-03-14] MEDS: LEVETIRACETAM ORAL SOLN 500 MG/5 ML UDCUP PO SCH ×2 (10:12→21:41)
[2019-03-14] MEDS: MAGNESIUM OXIDE 400 MG TABLET PO SCH (10:13)
[2019-03-14] MEDS: LACTOBACILLUS ACIDOPHILUS 250 MG TAB PO SCH ×2 (10:13→21:41)
[2019-03-14] MEDS: AMLODIPINE BESYLATE 10 MG TABLET PO SCH (10:13)
[2019-03-14] MEDS: MEGESTROL ACETATE SUSP 400 MG/10 ML UDCUP PO SCH (10:13)
[2019-03-14] MEDS: ALLOPURINOL 100 MG TABLET PO SCH (10:13)
[2019-03-14] MEDS: METOPROLOL SUCCINATE 50 MG TAB.SR.24H PO SCH (10:13)
[2019-03-14] MEDS: CHOLECALCIFEROL (D3) 1,000 UNIT (25 MCG) TABLET PO SCH (10:13)
[2019-03-14] MEDS: ASPIRIN 81 MG TABLET, ENT COATED PO SCH (10:13)
[2019-03-14] MEDS: CLOBETASOL PROPIONATE 0.05% CREAM 15 GM TP SCH (10:24)
[2019-03-14] MEDS ORDERED: LORAZEPAM 1 MG TABLET ONE (11:09)
[2019-03-14] MEDS ORDERED: LORAZEPAM 1 MG TABLET PO ONE (11:30)
--- NOTE | 2019-03-14 13:18 | RADIOLOGY REPORT (SQ) ---
EXAM DESCRIPTION: MRI LUMBAR SPINE WITHOUT COMPLETED DATE/TIME: 03/14/2019 12:06 pm REASON FOR STUDY: weakness of the lower extremity COMPARISON: None. TECHNIQUE: Sagittal and Axial imaging includes T1, T2, STIR and gradient echo sequences. Coronal T2/ HASTE imaging. LIMITATIONS: May radiographs. FINDINGS: VISUALIZED UPPER ABDOMEN: Limited. No significant abnormality. SEGMENTATION: No transitional anatomy. The lowest well-developed disc space is labeled L5-S1. ALIGNMENT: Mild grade 1 listhesis at L4-5. Slight convex-right broad scoliosis. VERTEBRAE: Intact. BONE MARROW: Normal. No marrow replacement or reactive changes. DISC SIGNAL: Variable signal and height loss. POSTERIOR ELEMENTS: Unilateral left L4 pars defect suggested. Otherwise, multilevel degenerative fa cet overgrowth. HARDWARE: None in the spine. CORD AND CONUS: Normal in size and signal intensity. Conus at the appropriate level. SOFT TISSUES: No aortic aneurysm seen. No bulky retroperitoneal adenopathy or mass. No paraspinal mas s or fluid. L1-L2: No significant spinal stenosis or exit foraminal stenosis. L2-L3: No significant spinal stenosis or exit foraminal stenosis. L3-L4: Mild disc bulge flattening the ventral thecal sac. Exuberant posterior ligament thickening an d facet overgrowth with moderate central stenosis. Moderate bilateral foraminal narrowing. L4-L5: Broad disc bulge with listhesis. Exuberant posterior ligament thickening and facet arthropath y/hypertrophy. Marked central stenosis. Foraminal stenosis is at least moderate. L5-S1: Facet arthropathy without significant central or foraminal stenosis. LOWER THORACIC: No efren cord compression. Limited assessment. SACRUM: Visualized upper sacrum intact. OTHER: No other significant findings. IMPRESSION: 1. Lumbar spondylosis. Includes marked spinal stenosis at the L4-5 level. Details as above. 2. No fracture or worrisome bone lesion. TECHNICAL DOCUMENTATION: JOB ID: [id number] [employer]- All Rights Reserved Reading location - IP/workstation name: [email or web address]
[2019-03-14] MEDS: PATIROMER 8.4 GM SUSP PACKET PO SCH (17:20)
--- NOTE | 2019-03-14 19:39 | PDOC PROGRESS REPORT ---
Subjective Progress Note for:: 03/14/19 Subjective:: Patient seen by the bedside, MRI of the lumbar spine without contrast demonstrated marked spinal stenosis at L4-L5 level, patient will need to go to rehabilitation I ordered consultation yesterday from discharge planning to make arrangement for this Reason For Visit: ANEMIA,VOMITING, ACUTE CKD Physical Exam Vital Signs: Temp Pulse Resp BP Pulse Ox 98.1 F 95 18 134/63 H 100 03/14/19 16:06 03/14/19 16:06 03/14/19 16:06 03/14/19 16:06 03/14/19 16:06 Intake & Output 03/13/19 03/14/19 03/15/19 06:59 06:59 06:59 Intake Total 860 1340 390 Output Total 3050 1100 1100 Balance -2190 240 -710 Weight 97.6 kg 97.3 kg General appearance: PRESENT: no acute distress Eye exam: PRESENT: PERRLA Respiratory exam: PRESENT: clear to auscultation heidi Cardiovascular exam: PRESENT: +S1, +S2 GI/Abdominal exam: PRESENT: soft Neurological exam: PRESENT: alert Results Laboratory Results: 03/13/19 10:55 03/14/19 05:30 03/14/19 05:30 Sodium 138.9 Potassium 4.3 Chloride 111 H Carbon Dioxide 23 Anion Gap 5 BUN 17 Creatinine 0.88 Est GFR ( Amer) > 60 Glucose 92 Calcium 9.9 Impressions: Chest X-Ray 02/20/19 00:00 IMPRESSION: Left central venous catheter, no pneumothorax. Blunted right costophrenic angle could be secondary to pleural fluid. KUB X-Ray 03/01/19 06:00 IMPRESSION: Grossly nonobstructive bowel gas pattern Knee X-Ray 03/02/19 00:00 IMPRESSION: Degenerative changes involving the left knee. The right total knee prosthesis appears to be in satisfactory position. copyright 2010 [employer]- All Rights Reserved Lumbar Spine MRI 03/14/19 00:00 IMPRESSION: 1. Lumbar spondylosis. Includes marked spinal stenosis at the L4-5 level. Details as above. 2. No fracture or worrisome bone lesion. Assessment & Plan - Diagnosis (1) Gastroenteritis Is this a current diagnosis for this admission?: Yes (2) Hypokalemia Is this a current diagnosis for this admission?: Yes (3) Hypoalbuminemia Is this a current diagnosis for this admission?: Yes (4) Hypomagnesemia Is this a current diagnosis for this admission?: Yes (5) Hypocalcemia Is this a current diagnosis for this admission?: Yes (6) Diarrhea Qualifiers: Diarrhea type: unspecified type Qualified Code(s): R19.7 - Diarrhea, unspecified Is this a current diagnosis for this admission?: Yes (7) Anemia due to GI blood loss Is this a current diagnosis for this admission?: Yes (8) Weakness of both legs Is this a current diagnosis for this admission?: Yes - Time Time Spent with patient: 15-24 minutes
[2019-03-14] MEDS: ATORVASTATIN CALCIUM 40 MG TABLET PO SCH (21:41)
[2019-03-14] MEDS: FERROUS SULFATE 325 MG TABLET PO SCH (21:41)
[2019-03-14] MEDS: GABAPENTIN 100 MG CAPSULE PO SCH (21:41)
[2019-03-15] MEDS: PANTOPRAZOLE SODIUM 40 MG TABLET.DR PO SCH ×2 (05:33→16:21)
[2019-03-15] MEDS: DEXTROSE 5%-1/2 NORMAL SALINE 1,000 ML IV PRN (05:33)
[2019-03-15] MEDS: LEVOTHYROXINE SODIUM 0.075 MG TABLET PO SCH (05:33)
[2019-03-15 06:44] LABS: ANION GAP 6 (5-19); BLOOD UREA NITROGEN 18 mg/dL (7-20); CALCIUM 9.4 mg/dL (8.4-10.2); CARBON DIOXIDE 22 mmol/L (22-30); CHLORIDE 111 mmol/L (98-107); GLUCOSE 108 mg/dL (75-110); POTASSIUM 4.4 mmol/L (3.6-5.0)
[2019-03-15] MEDS: INSULIN LISPRO 100 UNIT/ML 3 ML VIAL SUBCUT SCH ×2 (08:14→10:51)
[2019-03-15] MEDS: MEGESTROL ACETATE SUSP 400 MG/10 ML UDCUP PO SCH (10:16)
[2019-03-15] MEDS: LEVETIRACETAM ORAL SOLN 500 MG/5 ML UDCUP PO SCH ×2 (10:16→22:27)
[2019-03-15] MEDS: CHOLECALCIFEROL (D3) 1,000 UNIT (25 MCG) TABLET PO SCH (10:17)
[2019-03-15] MEDS: CLOBETASOL PROPIONATE 0.05% CREAM 15 GM TP SCH (10:17)
[2019-03-15] MEDS: LACTOBACILLUS ACIDOPHILUS 250 MG TAB PO SCH ×2 (10:17→22:27)
[2019-03-15] MEDS: ALLOPURINOL 100 MG TABLET PO SCH (10:17)
[2019-03-15] MEDS: AMLODIPINE BESYLATE 10 MG TABLET PO SCH (10:17)
[2019-03-15] MEDS: MAGNESIUM OXIDE 400 MG TABLET PO SCH (10:17)
[2019-03-15] MEDS: ASPIRIN 81 MG TABLET, ENT COATED PO SCH (10:17)
[2019-03-15] MEDS: LUBIPROSTONE 24 MCG CAPSULE PO SCH ×2 (10:17→22:26)
[2019-03-15] MEDS: METOPROLOL SUCCINATE 50 MG TAB.SR.24H PO SCH (10:17)
[2019-03-15] MEDS: PATIROMER 8.4 GM SUSP PACKET PO SCH (16:27)
--- NOTE | 2019-03-15 18:03 | PDOC DISCHARGE SUMMARY ---
Impression - Admit/DC Date/PCP Admission Date/Primary Care Provider: 02/20/19 16:52 MARY RASHID MD Discharge Date: 03/16/19 - Discharge Diagnosis (1) Gastroenteritis Is this a current diagnosis for this admission?: Yes (2) Hypokalemia Is this a current diagnosis for this admission?: Yes (3) Hypoalbuminemia Is this a current diagnosis for this admission?: Yes (4) Hypomagnesemia Is this a current diagnosis for this admission?: Yes (5) Hypocalcemia Is this a current diagnosis for this admission?: Yes (6) Diarrhea Is this a current diagnosis for this admission?: Yes (7) Anemia due to GI blood loss Is this a current diagnosis for this admission?: Yes (8) Weakness of both legs Is this a current diagnosis for this admission?: Yes (9) Spinal stenosis of lumbar region at multiple levels Is this a current diagnosis for this admission?: Yes - Additional Information Resuscitation Status: Full Code Referrals: MARY RASHID MD [Primary Care Provider] - 03/13/19 10:00 am Home Medications: Allopurinol [Zyloprim 100 mg Tablet] 100 mg PO DAILY 02/20/19 Amlodipine Besylate [Norvasc 10 mg Tablet] 10 mg PO DAILY 02/20/19 Cholecalciferol (Vitamin D3) [Vitamin D3 1000 Unit Tablet] 2,000 unit PO DAILY 02/20/19 Ferrous Sulfate [Feosol 325 mg Tablet] 325 mg PO QHS 02/20/19 Gabapentin [Neurontin 100 mg Capsule] 200 mg PO QHS 02/20/19 L.acidoph/L.bulg/B.bif/S.therm [Bacid Caplet] 2 each PO BID 02/20/19 Lacosamide [Vimpat 100 mg Tablet] 100 mg PO Q12 02/20/19 Levetiracetam 1,000 mg PO Q12 02/20/19 Levothyroxine Sodium [Synthroid 0.075 mg Tablet] 0.075 mg PO Q6AM 02/20/19 Magnesium Oxide [Mag-Ox 400 mg Tablet] 400 mg PO DAILY 02/20/19 Megestrol Acetate [Megace [place] 400 mg/10 ml Udcup] 400 mg PO DAILY 02/20/19 Metoprolol Succinate [Toprol Xl 50 mg Tab.sr] 50 mg PO DAILY 02/20/19 Ondansetron HCl [Zofran 8 mg Tablet] 8 mg PO Q4HP PRN 02/20/19 Acetaminophen [Tylenol 325 mg Tablet] 650 mg PO Q4HP PRN tablet 03/15/19 Apixaban [Eliquis 5 mg Tablet] 2.5 mg PO BID #0 03/15/19 History of Present Illiness History of Present Illness: IVY CLAIRE is a 78 year old female, Patient was seen in the emergency room earlier today for evaluation of, vomiting, diarrhea, multiple syncope episode she was initially screened in the emergency room but she came to the office subsequently for evaluation, the was particularly concerned about her symptoms, in the office she was evaluated she was pale looking she looked dehydrated. She was admitted directly from the office to the hospital for evaluation of her symptoms of diarrhea. She was found to have Severe hypokalemia Hospital Course Hospital Course: Patient was admitted for the management of profuse diarrhea associated with vomiting, hypokalemia, electrolyte derangement.She also had anemia due to GI blood loss, she was transfused with red blood cells, consultation was requested from surgery for colonoscopy, colonoscopy was done but it was a poor prep, nonconclusive study.She has generalized deconditioning with prolonged bedrest, I suggested that patient should be discharged to rehabilitation but discharge planning said she has no time left from the insurance to pay for this service,She had electrolyte derangement including hypomagnesemia.MRI of the lumbar spine was done as part of evaluation for weakness of the lower extremities, it demonstrated severe spinal stenosis at multiple levels of the lumbar spine Physical Exam Vital Signs: Temp Pulse Resp BP Pulse Ox 98.7 F 94 14 112/58 L 99 03/15/19 08:23 03/15/19 14:43 03/15/19 08:23 03/15/19 08:23 03/15/19 08:23 Intake & Output 03/14/19 03/15/19 03/16/19 06:59 06:59 06:59 Intake Total 1340 1680 Output Total 1100 1600 Balance 240 80 Weight 97.3 kg 95.3 kg General appearance: PRESENT: no acute distress Eye exam: PRESENT: PERRLA Respiratory exam: PRESENT: clear to auscultation heidi Cardiovascular exam: PRESENT: +S1, +S2 GI/Abdominal exam: PRESENT: soft Neurological exam: PRESENT: alert Results Laboratory Results: WBC 10.7 10^3/uL (4.0-10.5) H 03/13/19 10:55 RBC 3.44 10^6/uL (3.72-5.28) L 03/13/19 10:55 Hgb 10.1 g/dL (12.0-15.5) L 03/13/19 10:55 Hct 29.8 % (36.0-47.0) L 03/13/19 10:55 MCV 87 fl (80-97) 03/13/19 10:55 MCH 29.3 pg (27.0-33.4) 03/13/19 10:55 MCHC 33.8 g/dL (32.0-36.0) 03/13/19 10:55 RDW 19.2 % (11.5-14.0) H 03/13/19 10:55 Plt Count 400 10^3/uL (150-450) 03/13/19 10:55 Lymph % (Auto) 12.6 % (13-45) L 03/13/19 04:10 Foard % (Auto) 7.2 % (3-13) 03/13/19 04:10 Eos % (Auto) 2.5 % (0-6) 03/13/19 04:10 Baso % (Auto) 0.4 % (0-2) 03/13/19 04:10 Reticulocyte # 0.056 10^6/uL (0.028-0.122) 03/12/19 05:20 Absolute Neuts (auto) 8.2 10^3/uL (1.7-8.2) 03/13/19 04:10 Absolute Lymphs (auto) 1.3 10^3/uL (0.5-4.7) 03/13/19 04:10 Absolute Monos (auto) 0.8 10^3/uL (0.1-1.4) 03/13/19 04:10 Absolute Eos (auto) 0.3 10^3/uL (0.0-0.6) 03/13/19 04:10 Absolute Basos (auto) 0.0 10^3/uL (0.0-0.2) 03/13/19 04:10 Seg Neutrophils % 77.3 % (42-78) 03/13/19 04:10 Platelet Comment ADEQUATE 02/22/19 14:20 Poikilocytosis SLIGHT 02/22/19 14:20 Anisocytosis 3+ 02/22/19 14:20 Target Cells 2+ 02/22/19 14:20 Schistocytes SLIGHT 02/22/19 14:20 Retic Count (auto) 2.16 % (0.66-2.85) 03/12/19 05:20 PT 14.1 SEC (11.4-15.4) 03/06/19 08:49 INR 1.08 03/06/19 08:49 Carbonic Acid 1.32 mmol/L (1.05-1.35) 02/20/19 18:40 HCO3/H2CO3 Ratio 28:1 02/20/19 18:40 ABG pH 7.55 (7.35-7.45) H 02/20/19 18:40 ABG pCO2 43.7 mmHg (35-45) 02/20/19 18:40 ABG pO2 63.7 mmHg (80-100) L 02/20/19 18:40 ABG HCO3 37.4 mmol/L (20-24) H 02/20/19 18:40 ABG Total CO2 38.7 mmol/L (21-25) H 02/20/19 18:40 ABG O2 Saturation 94.6 % (94-98) 02/20/19 18:40 ABG Base Excess 13.6 mmol/L 02/20/19 18:40 FiO2 21% 02/20/19 18:40 Sodium 138.5 mmol/L (137-145) 03/15/19 05:50 Potassium 4.4 mmol/L (3.6-5.0) 03/15/19 05:50 Chloride 111 mmol/L (98-107) H 03/15/19 05:50 Carbon Dioxide 22 mmol/L (22-30) 03/15/19 05:50 Anion Gap 6 (5-19) 03/15/19 05:50 BUN 18 mg/dL (7-20) 03/15/19 05:50 Creatinine 0.97 mg/dL (0.52-1.25) 03/15/19 05:50 Est GFR ( Amer) > 60 (>60) 03/15/19 05:50 Est GFR (MDRD) Non-Af 56 (>60) L 03/15/19 05:50 Glucose 108 mg/dL (75-110) 03/15/19 05:50 POC Glucose 109 mg/dL (70-110) 03/15/19 10:48 Calcium 9.4 mg/dL (8.4-10.2) 03/15/19 05:50 Phosphorus 2.2 mg/dL (2.5-4.5) L 03/06/19 08:49 Magnesium 1.4 mg/dL (1.6-2.3) L 03/06/19 08:49 Iron 39.1 ug/dL (37-170) 03/12/19 05:20 TIBC 187 ug/dL (250-450) L 03/12/19 05:20 % Saturation 21 % 03/12/19 05:20 Ferritin 463.00 ng/mL (11.1-264.0) H 03/12/19 05:20 Total Bilirubin 0.2 mg/dL (0.2-1.3) 03/07/19 18:02 Direct Bilirubin 0.1 mg/dL (0.0-0.4) 03/07/19 18:02 Neonat Total Bilirubin Not Reportable 03/07/19 18:02 Neonat Direct Bilirubin Not Reportable 03/07/19 18:02 Neonat Indirect Bili Not Reportable 03/07/19 18:02 AST 40 U/L (14-36) H 03/07/19 18:02 ALT 18 U/L (<35) 03/07/19 18:02 Alkaline Phosphatase 117 U/L (38-126) 03/07/19 18:02 Total Protein 4.8 g/dL (6.3-8.2) L 03/07/19 18:02 Albumin 2.0 g/dL (3.5-5.0) L 03/07/19 18:02 Prealbumin 14.9 mg/dL (17.6-36.0) L 03/06/19 08:49 Triglycerides 93 mg/dL (<150) 03/06/19 08:49 Vitamin B12 854.0 pg/mL (239-931) 03/12/19 05:20 Folate 6.20 ng/mL (>2.76) 03/12/19 05:20 Urine Color YELLOW 03/03/19 06:40 Urine Appearance TURBID 03/03/19 06:40 Urine pH 9.0 (5.0-9.0) 03/03/19 06:40 Ur Specific [place] 1.012 03/03/19 06:40 Urine Protein 100 mg/dL (NEGATIVE) H 03/03/19 06:40 Urine Glucose (UA) NEGATIVE mg/dL (NEGATIVE) 03/03/19 06:40 Urine Ketones NEGATIVE mg/dL (NEGATIVE) 03/03/19 06:40 Urine Blood MODERATE (NEGATIVE) H 03/03/19 06:40 Urine Nitrite POSITIVE (NEGATIVE) H 03/03/19 06:40 Urine Bilirubin NEGATIVE (NEGATIVE) 03/03/19 06:40 Urine Urobilinogen NEGATIVE mg/dL (<2.0) 03/03/19 06:40 Ur Leukocyte Esterase LARGE (NEGATIVE) H 03/03/19 06:40 Urine WBC (Auto) 152 /HPF 03/03/19 06:40 Urine RBC (Auto) 10 /HPF 03/03/19 06:40 U Hyaline Cast (Auto) 4 /LPF 02/20/19 20:40 Urine Bacteria (Auto) 3+ /HPF 03/03/19 06:40 Squamous Epi Cells Auto <1 /HPF 02/20/19 20:40 Triple Phos Cryst (Auto) FEW /HPF 03/03/19 06:40 Amorphous Sediment Auto TRACE /HPF 03/03/19 06:40 Urine Mucus (Auto) MANY /LPF 03/03/19 06:40 Urine Creatinine 35.7 mg/dL (15-278) 03/08/19 22:35 Protein/Creatinin Ratio 2.8 mg/mg (0.0-0.2) H 03/08/19 22:35 Urine Total Protein 101.5 mg/dL (<12) H 03/08/19 22:35 Urine Ascorbic Acid NEGATIVE (NEGATIVE) 03/03/19 06:40 Stool Occult Blood NEGATIVE (NEGATIVE) 03/13/19 00:30 Stl C. Difficile GDH Ag NEGATIVE (NEGATIVE) 02/20/19 18:26 Stl C.difficile Tox A&B NEGATIVE (NEGATIVE) 02/20/19 18:26 Blood Type O NEGATIVE 03/12/19 11:28 Blood Type Confirm O NEGATIVE 11/17/19 18:52 Antibody Screen NEGATIVE 03/12/19 11:28 Crossmatch See Detail 03/12/19 11:28 Impressions: Chest X-Ray 02/20/19 00:00 IMPRESSION: Left central venous catheter, no pneumothorax. Blunted right costophrenic angle could be secondary to pleural fluid. KUB X-Ray 03/01/19 06:00 IMPRESSION: Grossly nonobstructive bowel gas pattern Knee X-Ray 03/02/19 00:00 IMPRESSION: Degenerative changes involving the left knee. The right total knee prosthesis appears to be in satisfactory position. copyright 2011 [employer]- All Rights Reserved Lumbar Spine MRI 03/14/19 00:00 IMPRESSION: 1. Lumbar spondylosis. Includes marked spinal stenosis at the L4-5 level. Details as above. 2. No fracture or worrisome bone lesion. Stroke Is this a Stroke Patient?: No Acute Heart Failure - Is this a Heart Failure Patient?: No
[2019-03-15] MEDS: GABAPENTIN 100 MG CAPSULE PO SCH (22:26)
[2019-03-15] MEDS: FERROUS SULFATE 325 MG TABLET PO SCH (22:27)
[2019-03-15] MEDS: ATORVASTATIN CALCIUM 40 MG TABLET PO SCH (22:27)
[2019-03-16] MEDS: DEXTROSE 5%-1/2 NORMAL SALINE 1,000 ML IV PRN ×2 (01:52→22:01)
[2019-03-16] MEDS: PANTOPRAZOLE SODIUM 40 MG TABLET.DR PO SCH ×2 (06:26→16:45)
[2019-03-16] MEDS: LEVOTHYROXINE SODIUM 0.075 MG TABLET PO SCH (06:26)
[2019-03-16] MEDS: MEGESTROL ACETATE SUSP 400 MG/10 ML UDCUP PO SCH (09:38)
[2019-03-16] MEDS: LEVETIRACETAM ORAL SOLN 500 MG/5 ML UDCUP PO SCH ×2 (09:38→22:07)
[2019-03-16] MEDS: CHOLECALCIFEROL (D3) 1,000 UNIT (25 MCG) TABLET PO SCH (09:38)
[2019-03-16] MEDS: LUBIPROSTONE 24 MCG CAPSULE PO SCH ×2 (09:38→23:19)
[2019-03-16] MEDS: ASPIRIN 81 MG TABLET, ENT COATED PO SCH (09:38)
[2019-03-16] MEDS: MAGNESIUM OXIDE 400 MG TABLET PO SCH (09:38)
[2019-03-16] MEDS: AMLODIPINE BESYLATE 10 MG TABLET PO SCH (09:38)
[2019-03-16] MEDS: METOPROLOL SUCCINATE 50 MG TAB.SR.24H PO SCH (09:38)
[2019-03-16] MEDS: ALLOPURINOL 100 MG TABLET PO SCH (09:38)
[2019-03-16] MEDS: LACTOBACILLUS ACIDOPHILUS 250 MG TAB PO SCH ×2 (09:38→22:02)
[2019-03-16] MEDS: CLOBETASOL PROPIONATE 0.05% CREAM 15 GM TP SCH (09:39)
[2019-03-16] MEDS: PATIROMER 8.4 GM SUSP PACKET PO SCH (16:46)
--- NOTE | 2019-03-16 20:01 | PDOC PROGRESS REPORT ---
Subjective Progress Note for:: 03/16/19 Subjective:: Patient was supposed to be discharged home today but family stated that they cannot take care of patient at home, they would like to outpatient transfer to long-term care facility Reason For Visit: ANEMIA,VOMITING, ACUTE CKD Physical Exam Vital Signs: Temp Pulse Resp BP Pulse Ox 99.6 F 100 18 107/53 L 99 03/16/19 15:26 03/16/19 15:26 03/16/19 15:26 03/16/19 15:26 03/16/19 15:26 Intake & Output 03/15/19 03/16/19 03/17/19 06:59 06:59 06:59 Intake Total 1680 1400 780 Output Total 1600 1450 1000 Balance 80 -50 -220 Weight 95.3 kg 97.3 kg General appearance: PRESENT: no acute distress Eye exam: PRESENT: PERRLA Respiratory exam: PRESENT: clear to auscultation heidi Cardiovascular exam: PRESENT: +S1, +S2 GI/Abdominal exam: PRESENT: soft Neurological exam: PRESENT: alert Results Laboratory Results: 03/13/19 10:55 03/15/19 05:50 Impressions: Chest X-Ray 02/20/19 00:00 IMPRESSION: Left central venous catheter, no pneumothorax. Blunted right costophrenic angle could be secondary to pleural fluid. KUB X-Ray 03/01/19 06:00 IMPRESSION: Grossly nonobstructive bowel gas pattern Knee X-Ray 03/02/19 00:00 IMPRESSION: Degenerative changes involving the left knee. The right total knee prosthesis appears to be in satisfactory position. copyright 2011 [employer] All Rights Reserved Lumbar Spine MRI 03/14/19 00:00 IMPRESSION: 1. Lumbar spondylosis. Includes marked spinal stenosis at the L4-5 level. Details as above. 2. No fracture or worrisome bone lesion. Assessment & Plan - Diagnosis (1) Gastroenteritis Is this a current diagnosis for this admission?: Yes (2) Hypokalemia Is this a current diagnosis for this admission?: Yes (3) Hypoalbuminemia Is this a current diagnosis for this admission?: Yes (4) Hypomagnesemia Is this a current diagnosis for this admission?: Yes (5) Hypocalcemia Is this a current diagnosis for this admission?: Yes (6) Diarrhea Qualifiers: Diarrhea type: unspecified type Qualified Code(s): R19.7 - Diarrhea, unspecified Is this a current diagnosis for this admission?: Yes (7) Anemia due to GI blood loss Is this a current diagnosis for this admission?: Yes (8) Weakness of both legs Is this a current diagnosis for this admission?: Yes (9) Spinal stenosis of lumbar region at multiple levels Is this a current diagnosis for this admission?: Yes - Time Time Spent with patient: Less than 15 minutes
[2019-03-16] MEDS: ATORVASTATIN CALCIUM 40 MG TABLET PO SCH (22:02)
[2019-03-16] MEDS: GABAPENTIN 100 MG CAPSULE PO SCH (22:02)
[2019-03-16] MEDS: FERROUS SULFATE 325 MG TABLET PO SCH (22:02)
[2019-03-17] MEDS: PANTOPRAZOLE SODIUM 40 MG TABLET.DR PO SCH ×2 (05:55→17:09)
[2019-03-17] MEDS: LEVOTHYROXINE SODIUM 0.075 MG TABLET PO SCH (05:56)
[2019-03-17] MEDS: LACTOBACILLUS ACIDOPHILUS 250 MG TAB PO SCH ×2 (09:32→21:41)
[2019-03-17] MEDS: LUBIPROSTONE 24 MCG CAPSULE PO SCH ×2 (09:32→21:41)
[2019-03-17] MEDS: LEVETIRACETAM ORAL SOLN 500 MG/5 ML UDCUP PO SCH ×2 (09:32→21:41)
[2019-03-17] MEDS: MAGNESIUM OXIDE 400 MG TABLET PO SCH (09:32)
[2019-03-17] MEDS: MEGESTROL ACETATE SUSP 400 MG/10 ML UDCUP PO SCH (09:32)
[2019-03-17] MEDS: ASPIRIN 81 MG TABLET, ENT COATED PO SCH (09:32)
[2019-03-17] MEDS: CLOBETASOL PROPIONATE 0.05% CREAM 15 GM TP SCH (09:33)
[2019-03-17] MEDS: CHOLECALCIFEROL (D3) 1,000 UNIT (25 MCG) TABLET PO SCH (09:33)
[2019-03-17] MEDS: ALLOPURINOL 100 MG TABLET PO SCH (09:33)
[2019-03-17] MEDS: METOPROLOL SUCCINATE 50 MG TAB.SR.24H PO SCH (09:33)
[2019-03-17] MEDS: AMLODIPINE BESYLATE 10 MG TABLET PO SCH (09:33)
[2019-03-17] MEDS: PATIROMER 8.4 GM SUSP PACKET PO SCH (17:10)
[2019-03-17] MEDS: DEXTROSE 5%-1/2 NORMAL SALINE 1,000 ML IV PRN (18:08)
[2019-03-17] MEDS: GABAPENTIN 100 MG CAPSULE PO SCH (21:41)
[2019-03-17] MEDS: ATORVASTATIN CALCIUM 40 MG TABLET PO SCH (21:41)
[2019-03-17] MEDS: FERROUS SULFATE 325 MG TABLET PO SCH (21:41)
--- NOTE | 2019-03-17 23:00 | PDOC PROGRESS REPORT ---
Subjective Progress Note for:: 03/17/19 Subjective:: Patient seen by the bedside Reason For Visit: ANEMIA,VOMITING, ACUTE CKD Physical Exam Vital Signs: Temp Pulse Resp BP Pulse Ox 99.7 F 117 H 20 107/54 L 99 03/17/19 19:35 03/17/19 19:35 03/17/19 19:35 03/17/19 19:35 03/17/19 19:35 Intake & Output 03/16/19 03/17/19 03/18/19 06:59 06:59 06:59 Intake Total 1400 1910 2270 Output Total 1450 1850 325 Balance -50 60 1945 Weight 97.3 kg 98.7 kg 98.7 kg General appearance: PRESENT: no acute distress Eye exam: PRESENT: PERRLA Respiratory exam: PRESENT: clear to auscultation heidi Cardiovascular exam: PRESENT: +S1, +S2 GI/Abdominal exam: PRESENT: soft Neurological exam: PRESENT: alert Results Laboratory Results: 03/13/19 10:55 03/15/19 05:50 Impressions: Chest X-Ray 02/20/19 00:00 IMPRESSION: Left central venous catheter, no pneumothorax. Blunted right costophrenic angle could be secondary to pleural fluid. KUB X-Ray 03/01/19 06:00 IMPRESSION: Grossly nonobstructive bowel gas pattern Knee X-Ray 03/02/19 00:00 IMPRESSION: Degenerative changes involving the left knee. The right total knee prosthesis appears to be in satisfactory position. copyright 2011 [employer]- All Rights Reserved Lumbar Spine MRI 03/14/19 00:00 IMPRESSION: 1. Lumbar spondylosis. Includes marked spinal stenosis at the L4-5 level. Details as above. 2. No fracture or worrisome bone lesion. Assessment & Plan - Diagnosis (1) Gastroenteritis Is this a current diagnosis for this admission?: Yes (2) Hypokalemia Is this a current diagnosis for this admission?: Yes (3) Hypoalbuminemia Is this a current diagnosis for this admission?: Yes (4) Hypomagnesemia Is this a current diagnosis for this admission?: Yes (5) Hypocalcemia Is this a current diagnosis for this admission?: Yes (6) Diarrhea Qualifiers: Diarrhea type: unspecified type Qualified Code(s): R19.7 - Diarrhea, unspecified Is this a current diagnosis for this admission?: Yes (7) Anemia due to GI blood loss Is this a current diagnosis for this admission?: Yes (8) Weakness of both legs Is this a current diagnosis for this admission?: Yes (9) Spinal stenosis of lumbar region at multiple levels Is this a current diagnosis for this admission?: Yes - Time Time Spent with patient: 15-24 minutes
[2019-03-18] MEDS: PANTOPRAZOLE SODIUM 40 MG TABLET.DR PO SCH ×2 (05:26→17:02)
[2019-03-18] MEDS: LEVOTHYROXINE SODIUM 0.075 MG TABLET PO SCH (05:26)
[2019-03-18] MEDS: MEGESTROL ACETATE SUSP 400 MG/10 ML UDCUP PO SCH (09:52)
[2019-03-18] MEDS: LEVETIRACETAM ORAL SOLN 500 MG/5 ML UDCUP PO SCH ×2 (09:52→22:49)
[2019-03-18] MEDS: MAGNESIUM OXIDE 400 MG TABLET PO SCH (09:53)
[2019-03-18] MEDS: LUBIPROSTONE 24 MCG CAPSULE PO SCH ×2 (09:53→22:50)
[2019-03-18] MEDS: LACTOBACILLUS ACIDOPHILUS 250 MG TAB PO SCH ×2 (09:53→22:50)
[2019-03-18] MEDS: ASPIRIN 81 MG TABLET, ENT COATED PO SCH (09:53)
[2019-03-18] MEDS: AMLODIPINE BESYLATE 10 MG TABLET PO SCH (09:53)
[2019-03-18] MEDS: ALLOPURINOL 100 MG TABLET PO SCH (09:53)
[2019-03-18] MEDS: CHOLECALCIFEROL (D3) 1,000 UNIT (25 MCG) TABLET PO SCH (09:54)
[2019-03-18] MEDS: CLOBETASOL PROPIONATE 0.05% CREAM 15 GM TP SCH (09:54)
[2019-03-18] MEDS: METOPROLOL SUCCINATE 50 MG TAB.SR.24H PO SCH (09:54)
[2019-03-18] MEDS: DEXTROSE 5%-1/2 NORMAL SALINE 1,000 ML IV PRN (12:31)
[2019-03-18] MEDS: ACETAMINOPHEN 325 MG TABLET PO PRN (14:19)
--- NOTE | 2019-03-18 14:29 | PDOC PROGRESS REPORT ---
Subjective Progress Note for:: 03/18/19 Subjective:: Patient denied any chest pain or difficulty with breathing. No fever or chills. No nausea, vomiting, or abdominal pain. Reason For Visit: ANEMIA,VOMITING, ACUTE CKD Physical Exam Vital Signs: Temp Pulse Resp BP Pulse Ox 98.1 F 110 H 16 112/54 L 98 03/18/19 11:52 03/18/19 11:52 03/18/19 11:52 03/18/19 11:52 03/18/19 11:52 Intake & Output 03/17/19 03/18/19 03/19/19 06:59 06:59 06:59 Intake Total 1910 2531 919 Output Total 1850 1775 Balance 60 756 919 Weight 98.7 kg 99.4 kg Physical Exam: General appearance: PRESENT: no acute distress, morbidly obese Head exam: PRESENT: atraumatic, normocephalic Eye exam: PRESENT: conjunctiva pink. ABSENT: pallor, scleral icterus Ear exam: PRESENT: normal external ear exam Mouth exam: PRESENT: moist Respiratory exam: PRESENT: clear to auscultation heidi Cardiovascular exam: PRESENT: RRR. ABSENT: diastolic murmur, rubs, systolic murmur GI/Abdominal exam: PRESENT: normal bowel sounds, soft. ABSENT: distended, guarding, mass, organomegaly, rebound, tenderness Extremities exam: PRESENT: pedal edema Neurological exam: PRESENT: alert, awake, oriented to person, oriented to place, oriented to time, oriented to situation, CN II-XII grossly intact. ABSENT: motor sensory deficit Psychiatric exam: PRESENT: appropriate affect, normal mood. ABSENT: homicidal ideation, suicidal ideation Skin exam: PRESENT: dry, warm Results Laboratory Results: 03/13/19 10:55 03/15/19 05:50 Impressions: Chest X-Ray 02/20/19 00:00 IMPRESSION: Left central venous catheter, no pneumothorax. Blunted right costophrenic angle could be secondary to pleural fluid. KUB X-Ray 03/01/19 06:00 IMPRESSION: Grossly nonobstructive bowel gas pattern Knee X-Ray 03/02/19 00:00 IMPRESSION: Degenerative changes involving the left knee. The right total knee prosthesis appears to be in satisfactory position. copyright 2011 [employer]- All Rights Reserved Lumbar Spine MRI 03/14/19 00:00 IMPRESSION: 1. Lumbar spondylosis. Includes marked spinal stenosis at the L4-5 level. Details as above. 2. No fracture or worrisome bone lesion. Assessment & Plan - Diagnosis (1) Anemia due to GI blood loss Is this a current diagnosis for this admission?: Yes (2) Gastroenteritis Is this a current diagnosis for this admission?: Yes (3) Hypocalcemia Is this a current diagnosis for this admission?: Yes (4) Hypokalemia Is this a current diagnosis for this admission?: Yes (5) Hypomagnesemia Is this a current diagnosis for this admission?: Yes (6) Hypoalbuminemia Is this a current diagnosis for this admission?: Yes (7) Adult failure to thrive syndrome Is this a current diagnosis for this admission?: Yes (8) Hypertension Qualifiers: Hypertension type: essential hypertension Qualified Code(s): I10 - Ess ential (primary) hypertension Is this a current diagnosis for this admission?: Yes (9) Hypothyroidism Qualifiers: Hypothyroidism type: unspecified Qualified Code(s): E03.9 - Hypothyroidism, unspecified Is this a current diagnosis for this admission?: Yes - Time Time Spent with patient: 25-34 minutes Level of Care: IMCU Medications reviewed and adjusted accordingly: Yes Anticipated discharge: Home with Homehealth - with [facility] services, SNF Within: Other - Inpatient Certification Based on my medical assessment, after consideration of the patient's comorbidities, presenting symptoms, or acuity I expect that the services needed warrant INPATIENT care.: Yes I certify that my determination is in accordance with my understanding of Medicare's requirements for reasonable and necessary INPATIENT services [42 CFR 412.3e].: Yes Medical Necessity: Significant Comorbidiites Make Outpatient Treatment Too Risky, Need Close Monitoring Due to Risk of Patient Decompensation, Need For IV Fluids, Need For Continuous Telemetry Monitoring, Risk of Complication if Not Cared For in Hospital, Risk of Diagnosis Which Will Require Inpatient Eval/Care/ Monitoring Post Hospital 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 Continue current medication management. Obtain CBC with diff and CMP in AM. She may benefit from short term rehabilitation upon discharge.
[2019-03-18] MEDS: PATIROMER 8.4 GM SUSP PACKET PO SCH (17:02)
[2019-03-18] MEDS: GABAPENTIN 100 MG CAPSULE PO SCH (22:50)
[2019-03-18] MEDS: ATORVASTATIN CALCIUM 40 MG TABLET PO SCH (22:50)
[2019-03-18] MEDS: FERROUS SULFATE 325 MG TABLET PO SCH (22:50)
[2019-03-19] MEDS: PANTOPRAZOLE SODIUM 40 MG TABLET.DR PO SCH ×2 (06:16→17:22)
[2019-03-19] MEDS: LEVOTHYROXINE SODIUM 0.075 MG TABLET PO SCH (06:16)
[2019-03-19 06:58] LABS: ABSOLUTE BASOPHILS # (AUTO) 0.1 10^3/uL (0.0-0.2); ABSOLUTE EOSINOPHILS # (AUTO) 0.3 10^3/uL (0.0-0.6); ABSOLUTE LYMPHOCYTES (AUTO) 1.6 10^3/uL (0.5-4.7); ABSOLUTE MONOCYTES (AUTO) 0.8 10^3/uL (0.1-1.4); ABSOLUTE NEUT (AUTO) 5.2 10^3/uL (1.7-8.2); BASOPHILS % (AUTO) 0.8 % (0-2); EOSINOPHILS % (AUTO) 3.4 % (0-6); HEMATOCRIT 26.8 % (36.0-47.0); HEMOGLOBIN 9.1 g/dL (12.0-15.5); MEAN CORPUSCULAR HGB CONC 33.9 g/dL (32.0-36.0); MEAN CORPUSCULAR VOLUME 88 fl (80-97); MONOCYTES % (AUTO) 10.5 % (3-13); RED BLOOD COUNT 3.03 10^6/uL (3.72-5.28); RED CELL DISTRIBUTION WIDTH 19.7 % (11.5-14.0); SEGMENTED NEUTROPHILS % (AUTO) 65.3 % (42-78); TOTAL CELLS COUNTED % (AUTO) 100 %; WHITE BLOOD COUNT 7.9 10^3/uL (4.0-10.5)
[2019-03-19 07:19] LABS: ALBUMIN 2.4 g/dL (3.5-5.0); ALKALINE PHOSPHATASE 65 U/L (38-126); ANION GAP 5 (5-19); ASPARTATE AMINO TRANSFERASE 20 U/L (14-36); BILIRUBIN,DIRECT 0.1 mg/dL (0.0-0.4); BILIRUBIN,TOTAL 0.3 mg/dL (0.2-1.3); BLOOD UREA NITROGEN 23 mg/dL (7-20); CALCIUM 9.6 mg/dL (8.4-10.2); CARBON DIOXIDE 25 mmol/L (22-30); CHLORIDE 111 mmol/L (98-107); GLUCOSE 91 mg/dL (75-110); POTASSIUM 4.5 mmol/L (3.6-5.0); TOTAL PROTEIN 5.4 g/dL (6.3-8.2)
[2019-03-19 07:54] LABS: PLATELET COUNT 345 10^3/uL (150-450)
[2019-03-19] MEDS: LUBIPROSTONE 24 MCG CAPSULE PO SCH ×2 (09:11→21:27)
[2019-03-19] MEDS: METOPROLOL SUCCINATE 50 MG TAB.SR.24H PO SCH (09:19)
[2019-03-19] MEDS: ASPIRIN 81 MG TABLET, ENT COATED PO SCH (09:19)
[2019-03-19] MEDS: ALLOPURINOL 100 MG TABLET PO SCH (09:19)
[2019-03-19] MEDS: AMLODIPINE BESYLATE 10 MG TABLET PO SCH (09:19)
[2019-03-19] MEDS: MEGESTROL ACETATE SUSP 400 MG/10 ML UDCUP PO SCH (09:19)
[2019-03-19] MEDS: CHOLECALCIFEROL (D3) 1,000 UNIT (25 MCG) TABLET PO SCH (09:19)
[2019-03-19] MEDS: MAGNESIUM OXIDE 400 MG TABLET PO SCH (09:19)
[2019-03-19] MEDS: LEVETIRACETAM ORAL SOLN 500 MG/5 ML UDCUP PO SCH ×2 (09:19→21:33)
[2019-03-19] MEDS: LACTOBACILLUS ACIDOPHILUS 250 MG TAB PO SCH ×2 (09:19→21:29)
[2019-03-19] MEDS: CLOBETASOL PROPIONATE 0.05% CREAM 15 GM TP SCH (09:20)
[2019-03-19] MEDS: DEXTROSE 5%-1/2 NORMAL SALINE 1,000 ML IV PRN (09:25)
[2019-03-19] MEDS: PATIROMER 8.4 GM SUSP PACKET PO SCH (17:22)
--- NOTE | 2019-03-19 17:51 | PDOC PROGRESS REPORT ---
Subjective Progress Note for:: 03/19/19 Subjective:: Patient denied any chest pain or difficulty with breathing. No fever or chills. No nausea, vomiting, or abdominal pain. There were episodes of diarrhea most of yesterday after administration of Amitiza as per nursing staff. Amitiza has been on hold and so far no diarrhea today. Reason For Visit: ANEMIA,VOMITING, ACUTE CKD Physical Exam Vital Signs: Temp Pulse Resp BP Pulse Ox 98.3 F 96 16 111/61 98 03/19/19 15:56 03/19/19 15:56 03/19/19 15:56 03/19/19 15:56 03/19/19 15:56 Intake & Output 03/18/19 03/19/19 03/20/19 06:59 06:59 06:59 Intake Total 2531 1529 1000 Output Total 1775 1525 Balance 756 4 1000 Weight 99.4 kg 98.4 kg Physical Exam: General appearance: PRESENT: no acute distress, morbidly obese Head exam: PRESENT: atraumatic, normocephalic Eye exam: PRESENT: conjunctiva pink. ABSENT: pallor, scleral icterus Ear exam: PRESENT: normal external ear exam Mouth exam: PRESENT: moist Respiratory exam: PRESENT: clear to auscultation heidi Cardiovascular exam: PRESENT: RRR. ABSENT: diastolic murmur, rubs, systolic murmur GI/Abdominal exam: PRESENT: normal bowel sounds, soft. ABSENT: distended, guarding, mass, organomegaly, rebound, tenderness Extremities exam: PRESENT: pedal edema Neurological exam: PRESENT: alert, awake, oriented to person, oriented to place, oriented to time, oriented to situation, CN II-XII grossly intact. ABSENT: motor sensory deficit Psychiatric exam: PRESENT: appropriate affect, normal mood. ABSENT: homicidal ideation, suicidal ideation Skin exam: PRESENT: dry, warm Results Laboratory Results: 03/19/19 06:20 03/19/19 06:20 03/19/19 03/19/19 06:20 06:20 WBC 7.9 RBC 3.03 L Hgb 9.1 L Hct 26.8 L MCV 88 MCH 30.0 MCHC 33.9 RDW 19.7 H Plt Count 345 Seg Neutrophils % 65.3 Sodium 140.8 Potassium 4.5 Chloride 111 H Carbon Dioxide 25 Anion Gap 5 BUN 23 H Creatinine 0.94 Est GFR ( Amer) > 60 Glucose 91 Calcium 9.6 Total Bilirubin 0.3 AST 20 Alkaline Phosphatase 65 Total Protein 5.4 L Albumin 2.4 L Impressions: Chest X-Ray 02/20/19 00:00 IMPRESSION: Left central venous catheter, no pneumothorax. Blunted right costophrenic angle could be secondary to pleural fluid. KUB X-Ray 03/01/19 06:00 IMPRESSION: Grossly nonobstructive bowel gas pattern Knee X-Ray 03/02/19 00:00 IMPRESSION: Degenerative changes involving the left knee. The right total knee prosthesis appears to be in satisfactory position. copyright 2010 [employer]- All Rights Reserved Lumbar Spine MRI 03/14/19 00:00 IMPRESSION: 1. Lumbar spondylosis. Includes marked spinal stenosis at the L4-5 level. Details as above. 2. No fracture or worrisome bone lesion. Assessment & Plan - Diagnosis (1) Anemia due to GI blood loss Is this a current diagnosis for this admission?: Yes (2) Gastroenteritis Is this a current diagnosis for this admission?: Yes (3) Hypocalcemia Is this a current diagnosis for this admission?: Yes (4) Hypokalemia Is this a current diagnosis for this admission?: Yes (5) Hypomagnesemia Is this a current diagnosis for this admission?: Yes (6) Hypoalbuminemia Is this a current diagnosis for this admission?: Yes (7) Adult failure to thrive syndrome Is this a current diagnosis for this admission?: Yes (8) Hypertension Qualifiers: Hypertension type: essential hypertension Qualified Code(s): I10 - Essential (primary) hypertension Is this a current diagnosis for this admission?: Yes (9) Hypothyroidism Qualifiers: Hypothyroidism type: unspecified Qualified Code(s): E03.9 - Hypothyroidism, unspecified Is this a current diagnosis for this admission?: Yes - Time Time Spent with patient: 25-34 minutes Level of Care: IMCU Medications reviewed and adjusted accordingly: Yes Anticipated discharge: Home with Homehealth, SNF Within: Other - Inpatient Certification Based on my medical assessment, after consideration of the patient's co morbidities, presenting symptoms, or acuity I expect that the services needed warrant INPATIENT care.: Yes I certify that my determination is in accordance with my understanding of Medicare's requirements for reasonable and necessary INPATIENT services [42 CFR 412.3e].: Yes Medical Necessity: Significant Comorbidiites Make Outpatient Treatment Too Risky, Need Close Monitoring Due to Risk of Patient Decompensation, Need For Continuous Telemetry Monitoring, Risk of Complication if Not Cared For in Hospital, Risk of Diagnosis Which Will Require Inpatient Eval/Care/Monitoring Post Hospital Care: 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 Obtain stool C. difficile titer for possible antibiotic induced case.
[2019-03-19] MEDS: FERROUS SULFATE 325 MG TABLET PO SCH (21:29)
[2019-03-19] MEDS: GABAPENTIN 100 MG CAPSULE PO SCH (21:30)
[2019-03-19] MEDS: ATORVASTATIN CALCIUM 40 MG TABLET PO SCH (21:30)
[2019-03-20] MEDS: DEXTROSE 5%-1/2 NORMAL SALINE 1,000 ML IV PRN ×2 (04:00→22:09)
[2019-03-20] MEDS: PANTOPRAZOLE SODIUM 40 MG TABLET.DR PO SCH ×2 (05:21→17:47)
[2019-03-20] MEDS: LEVOTHYROXINE SODIUM 0.075 MG TABLET PO SCH (05:21)
[2019-03-20] MEDS: ALLOPURINOL 100 MG TABLET PO SCH (09:34)
[2019-03-20] MEDS: ASPIRIN 81 MG TABLET, ENT COATED PO SCH (09:34)
[2019-03-20] MEDS: MAGNESIUM OXIDE 400 MG TABLET PO SCH (09:34)
[2019-03-20] MEDS: LACTOBACILLUS ACIDOPHILUS 250 MG TAB PO SCH ×2 (09:34→22:06)
[2019-03-20] MEDS: AMLODIPINE BESYLATE 10 MG TABLET PO SCH (09:34)
[2019-03-20] MEDS: CHOLECALCIFEROL (D3) 1,000 UNIT (25 MCG) TABLET PO SCH (09:34)
[2019-03-20] MEDS: METOPROLOL SUCCINATE 50 MG TAB.SR.24H PO SCH (09:34)
[2019-03-20] MEDS: CLOBETASOL PROPIONATE 0.05% CREAM 15 GM TP SCH (09:35)
[2019-03-20] MEDS: LUBIPROSTONE 24 MCG CAPSULE PO SCH ×2 (09:35→22:04)
[2019-03-20] MEDS: MEGESTROL ACETATE SUSP 400 MG/10 ML UDCUP PO SCH (09:39)
[2019-03-20] MEDS: LEVETIRACETAM ORAL SOLN 500 MG/5 ML UDCUP PO SCH ×2 (09:39→22:05)
[2019-03-20 15:01] LABS: C DIFFICILE GDH POSITIVE (NEGATIVE)
[2019-03-20] MEDS: PATIROMER 8.4 GM SUSP PACKET PO SCH (17:47)
[2019-03-20] MEDS: FIDAXOMICIN 200 MG TABLET PO SCH (20:22)
[2019-03-20] MEDS: ATORVASTATIN CALCIUM 40 MG TABLET PO SCH (22:06)
[2019-03-20] MEDS: GABAPENTIN 100 MG CAPSULE PO SCH (22:06)
[2019-03-20] MEDS: FERROUS SULFATE 325 MG TABLET PO SCH (22:06)
[2019-03-21] MEDS: FIDAXOMICIN 200 MG TABLET PO SCH (05:56)
[2019-03-21] MEDS: PANTOPRAZOLE SODIUM 40 MG TABLET.DR PO SCH (05:56)
[2019-03-21] MEDS: LEVOTHYROXINE SODIUM 0.075 MG TABLET PO SCH (05:56)
[2019-03-21] MEDS ORDERED: INFLUENZA QUAD (6MOS+) 2019-20 VAC 0.5 ML SYR IM ONE (10:07)
[2019-03-21] MEDS: LACTOBACILLUS ACIDOPHILUS 250 MG TAB PO SCH (10:08)
[2019-03-21] MEDS: MEGESTROL ACETATE SUSP 400 MG/10 ML UDCUP PO SCH (10:08)
[2019-03-21] MEDS: CHOLECALCIFEROL (D3) 1,000 UNIT (25 MCG) TABLET PO SCH (10:08)
[2019-03-21] MEDS: LEVETIRACETAM ORAL SOLN 500 MG/5 ML UDCUP PO SCH (10:08)
[2019-03-21] MEDS: METOPROLOL SUCCINATE 50 MG TAB.SR.24H PO SCH (10:08)
[2019-03-21] MEDS: LUBIPROSTONE 24 MCG CAPSULE PO SCH (10:08)
[2019-03-21] MEDS: ASPIRIN 81 MG TABLET, ENT COATED PO SCH (10:09)
[2019-03-21] MEDS: ALLOPURINOL 100 MG TABLET PO SCH (10:09)
[2019-03-21] MEDS: AMLODIPINE BESYLATE 10 MG TABLET PO SCH (10:09)
[2019-03-21] MEDS: MAGNESIUM OXIDE 400 MG TABLET PO SCH (10:09)
[2019-03-21] MEDS: CLOBETASOL PROPIONATE 0.05% CREAM 15 GM TP SCH (10:10)
[2019-03-21 14:06] VITALS: BP 108/53
== END 2019-03-21 14:25 | DRG 371 ==
LOC: 3W 16:52
PROVIDERS: ADMIT Internal Medicine; ATTEND Internal Medicine
PROC: 02HV33Z Insertion of Infusion Device into Superior Vena Cava, Percutaneous Approach (ICD-10-PCS; principal; 2019-02-20)
PROC: 30233N1 Transfusion of Nonautologous Red Blood Cells into Peripheral Vein, Percutaneous Approach (ICD-10-PCS; 2019-02-26)
PROC: 0DD78ZX Extraction of Stomach, Pylorus, Via Natural or Artificial Opening Endoscopic, Diagnostic (ICD-10-PCS; 2019-02-26)
PROC: 0DJD8ZZ Inspection of Lower Intestinal Tract, Via Natural or Artificial Opening Endoscopic (ICD-10-PCS; 2019-02-28)
PROC: 30233N1 Transfusion of Nonautologous Red Blood Cells into Peripheral Vein, Percutaneous Approach (ICD-10-PCS; 2019-03-13)
PROC: 3E0234Z Introduction of Serum, Toxoid and Vaccine into Muscle, Percutaneous Approach (ICD-10-PCS; 2019-03-21)
DX: A04.71 Enterocolitis due to Clostridium difficile, recurrent (principal); K29.01 Acute gastritis with bleeding; E43 Unspecified severe protein-calorie malnutrition; E87.6 Hypokalemia; E88.09 Other disorders of plasma-protein metabolism, not elsewhere classified; E83.42 Hypomagnesemia; E83.51 Hypocalcemia; K44.9 Diaphragmatic hernia without obstruction or gangrene; D50.0 Iron deficiency anemia secondary to blood loss (chronic); E03.9 Hypothyroidism, unspecified; I12.9 Hypertensive chronic kidney disease with stage 1 through stage 4 chronic kidney disease, or unspecified chronic kidney disease; N18.3 Chronic kidney disease, stage 3 (moderate); R13.19 Other dysphagia; R62.7 Adult failure to thrive; M48.061 Spinal stenosis, lumbar region without neurogenic claudication; E66.01 Morbid (severe) obesity due to excess calories; Z86.711 Personal history of pulmonary embolism; Z23 Encounter for immunization; Z79.01 Long term (current) use of anticoagulants; Z79.891 Long term (current) use of opiate analgesic; Z79.899 Other long term (current) drug therapy
CPT/HCPCS: 00811; 36415; 36430; 36600; 43239; 45378; 71045; 72148; 74018; 80048; 80053; 80076; 81001; 82272; 82550; 82570; 82607; 82728; 82746; 82803; 82962; 83540; 83550; 83735; 84100; 84134; 84156; 84478; 85025; 85027; 85045; 85610; 85730; 86850; 86900; 86901; 86920; 87040; 87070; 87086; 87324; 87449; 88305; 90686; 93005; 93010; 95819; 99281; C1751; J0171; J0610; J1200; J1610; J1642; J2250; J2310; J2370; J2405; J2550; J2704; J2997; J3010; J3475; J3480; J3490; P9016; S0119

== ENCOUNTER 2019-04-12 10:13 | Inpatient (IN) | payer MEDICARE ==
--- NOTE | 2019-04-12 11:51 | ER Document Report ---
ED General - General Chief Complaint: General Weakness Stated Complaint: WEAKNESS Time Seen by Provider: 04/12/19 11:07 Primary Care Provider: MARY RASHID MD [Primary Care Provider] - Follow up as needed Notes: 78-year-old female brought in from [facility] for decreased oral intake, has not eaten since Wednesday, increased right-sided tremors where she usually has her partial seizures, decreased level of responsiveness, increased confusion and a rash around her genitals for the past week and a half. Family is concerned because the last time she acted like this she had a urinary tract infection. Patient takes Keppra for her seizures, has not had the dose changed recently, is being given as prescribed at [facility]. TRAVEL OUTSIDE OF THE [place] IN LAST 30 DAYS: No - Related Data Allergies/Adverse Reactions: steriods Allergy (Uncoded 08/10/18 12:33) steroids Adverse Reaction (Intermediate, Uncoded 08/10/18 12:33) Past Medical History - General Information source: Patient, Relative - Social History Smoking Status: Former Smoker Frequency of alcohol use: None Drug Abuse: None Family History: Reviewed & Not Pertinent Patient has suicidal ideation: No Patient has homicidal ideation: No - Past Medical History Cardiac Medical History: Reports: Hx Hypercholesterolemia, Hx Hypertension, Hx Pulmonary Embolism - 2 blood clots in her lungs a few years ago Denies: Hx Atrial Fibrillation, Hx Congestive Heart Failure, Hx Coronary Artery Disease, Hx Heart Attack, Hx Peripheral Vascular Disease, Hx Heart Murmur Pulmonary Medical History: Reports: Hx Bronchitis Denies: Hx Asthma, Hx COPD, Hx Pneumonia, Hx Respiratory Failure, Hx Sleep Apnea, Hx Tuberculosis Neurological Medical History: Reports: Hx Cerebrovascular Accident - About a year ago.Comment Only: Hx Seizures - UNSURE Endocrine Medical History: Reports: Hx Hypothyroidism Renal/ Medical History: Reports: Hx Renal Insufficiency. Denies: Hx End Stage Renal Disease, Hx Peritoneal Dialysis Malignancy Medical History: Denies: Hx Leukemia, Hx Lung Cancer GI Medical History: Denies: Hx Hepatitis, Hx Hiatal Hernia, Hx Ulcer Musculoskeletal Medical History: Reports Hx Arthritis, Denies Hx Fibromyalgia, Reports Hx Gout Psychiatric Medical History: Reports: Hx Depression Infectious Medical History: Denies: Hx Hepatitis, Hx HIV Past Surgical History: Reports: Hx Orthopedic Surgery - R knee replacement. Denies: Hx Appendectomy, Hx Section, Hx Cholecystectomy, Hx Coronary Artery Bypass Graft, Hx Gastric Bypass Surgery, Hx Herniorrhaphy, Hx Hysterectomy, Hx Mastectomy, Hx Open Heart Surgery, Hx Pacemaker, Hx Tonsillectomy, Hx Tubal Ligation - Immunizations Hx Diphtheria, Pertussis, Tetanus Vaccination: Yes - <5 years Hx Pneumococcal Vaccination: 04/12/08 Review of Systems - Review of Systems Constitutional: See HPI, Weakness EENT: No symptoms reported Gastrointestinal: No symptoms reported Genitourinary: See HPI Skin: See HPI Neurological/Psychological: See HPI, Seizure -: Yes All other systems reviewed and negative Physical Exam - Vital signs Vitals: Temp Pulse Resp BP Pulse Ox 98.1 F 101 H 16 158/132 H 99 04/12/19 10:14 04/12/19 10:14 04/12/19 10:14 04/12/19 10:14 04/12/19 10:14 Interpretation: Hypertensive, Tachycardic - Notes Notes: GENERAL: Laying in bed, immediately answers my question of "who is in the room?", No acute distress, is quite quiet and does not provide any other history. HEAD: Normocephalic, atraumatic EYES: Pupils equal, round and reactive to light, extraocular movements intact. ENT: Oral mucosa moist, tongue midline. NECK: Full range of motion, supple, trachea midline. LUNGS: Clear to auscultation bilaterally, no wheezes, rales or rhonchi, no respi ratory distress. HEART: Regular rate and rhythm, no murmurs, gallops, rubs. ABDOMEN: Soft, nontender, nondistended, bowel sounds present in all 4 quadrants. EXTREMITIES: Moves all 4 extremities spontaneously, no edema, radial and dorsalis pedis pulses 2/4 bilaterally. No cyanosis. NEUROLOGICAL: Awake, oriented to person and place but not to time, cannot name the year or the president, no slurred speech, uncontrollable twitching to the right side of the face and the right upper extremity however she is able to make eye contact and track my fingers, there is no facial droop, there is no tongue deviation, she is able to grasp the right hand and has 5 out of 5 muscle strength. SKIN: Warm, Dry, some erythema around the external labia. Some purulent discharge from the urethra. Course - Re-evaluation Re-evalutation: 04/12/19 13:41 CBC shows anemia with a hemoglobin 11.5 this is actually improved compared to about a month ago, venous blood gas unremarkable, CMP shows acute renal failure with a BUN of 62, creatinine 1.78, elevated potassium at 6.1, elevated calcium at 12.1, magnesium is normal, cardiac enzymes negative, patient is being hydrated using normal saline, given Veltassa to bring the potassium down, EKG does not show any QRS widening or peaked T waves, patient is also being given Lasix to bring down the potassium, urinalysis shows positive nitrites and large leukocyte esterase, this is been sent for culture, chest ray does not show any acute process. Discussed case with Dr. Humphrey who is covering for Dr. Rashid, agrees to admit the patient to his service on the [facility]. Family agreeable to this plan as this patient. - Vital Signs Vital signs: Temp Pulse Resp BP Pulse Ox 98.1 F 101 H 15 105/64 99 04/12/19 10:14 04/12/19 10:14 04/12/19 11:10 04/12/19 11:10 04/12/19 11:10 - Laboratory Result Diagrams: 04/12/19 11:40 04/12/19 11:40 Laboratory results interpreted by me: 04/12/19 04/12/19 04/12/19 11:40 11:40 12:15 RBC 3.66 L Hgb 11.5 L Hct 34.5 L RDW 19.0 H Potassium 6.1 H* Chloride 109 H Carbon Dioxide 21 L BUN 62 H Creatinine 1.78 H Est GFR ( Amer) 33 L Est GFR (MDRD) Non-Af 28 L Calcium 12.1 H* Urine Protein 100 H Urine Nitrite POSITIVE H Ur Leukocyte Esterase LARGE H Urine Ascorbic Acid 20 H - EKG Interpretation by Me Additional EKG results interpreted by me: 04/12/19 11:52 EKG shows sinus tachycardia at a rate of 110, normal axis, normal intervals, slow R wave progression, slight ST segment elevation noted in lead II, approximately 1 mm, no reciprocal changes, no contiguous elevations per my inte rpretation. Discharge - Discharge Clinical Impression: Hyperkalemia, Hypercalcemia, Facial twitching, Partial seizures Urinary tract infection Qualifiers: Urinary tract infection type: acute cystitis Hematuria presence: without hematuria Qualified Code(s): N30.00 - Acute cystitis without hematuria Acute renal failure Qualifiers: Acute renal failure type: unspecified Qualified Code(s): N17.9 - Acute kidney failure, unspecified Condition: Fair Disposition: ADMITTED INPATIENT Admitting Provider: Blue Humphrey covering Unit Admitted: IMCU Referrals: MARY RASHID MD [Primary Care Provider] - Follow up as needed
[2019-04-12 12:00] LABS: ABSOLUTE BASOPHILS # (AUTO) 0.1 10^3/uL (0.0-0.2); ABSOLUTE EOSINOPHILS # (AUTO) 0.4 10^3/uL (0.0-0.6); ABSOLUTE LYMPHOCYTES (AUTO) 1.5 10^3/uL (0.5-4.7); ABSOLUTE MONOCYTES (AUTO) 0.9 10^3/uL (0.1-1.4); ABSOLUTE NEUT (AUTO) 6.4 10^3/uL (1.7-8.2); BASOPHILS % (AUTO) 0.8 % (0-2); EOSINOPHILS % (AUTO) 4.1 % (0-6); HEMATOCRIT 34.5 % (36.0-47.0); HEMOGLOBIN 11.5 g/dL (12.0-15.5); LYMPHOCYTES % (AUTO) 16.5 % (13-45); MEAN CORPUSCULAR HEMOGLOBIN 31.3 pg (27.0-33.4); MEAN CORPUSCULAR HGB CONC 33.2 g/dL (32.0-36.0); MONOCYTES % (AUTO) 9.7 % (3-13); PLATELET COUNT 354 10^3/uL (150-450); RED BLOOD COUNT 3.66 10^6/uL (3.72-5.28); SEGMENTED NEUTROPHILS % (AUTO) 68.9 % (42-78); TOTAL CELLS COUNTED % (AUTO) 100 %; VENOUS BLOOD BASE EXCESS -4.5 mmol/L; VENOUS BLOOD HCO3 21.9 mmol/L (20-32); VENOUS BLOOD PH 7.31 (7.30-7.42); WHITE BLOOD COUNT 9.3 10^3/uL (4.0-10.5)
[2019-04-12 12:08] LABS: MEAN CORPUSCULAR VOLUME 94 fl (80-97)
[2019-04-12 12:19] LABS: ALBUMIN 3.9 g/dL (3.5-5.0); ALKALINE PHOSPHATASE 67 U/L (38-126); ANION GAP 12 (5-19); ASPARTATE AMINO TRANSFERASE 21 U/L (14-36); BILIRUBIN,DIRECT 0.3 mg/dL (0.0-0.4); BILIRUBIN,TOTAL 0.4 mg/dL (0.2-1.3); BLOOD UREA NITROGEN 62 mg/dL (7-20); CARBON DIOXIDE 21 mmol/L (22-30); CHLORIDE 109 mmol/L (98-107); CREATINE KINASE 78 U/L (30-135); GLUCOSE 98 mg/dL (75-110); TOTAL PROTEIN 7.7 g/dL (6.3-8.2)
[2019-04-12 12:26] LABS: POTASSIUM 6.1 mmol/L (3.6-5.0)
[2019-04-12 12:27] LABS: CALCIUM 12.1 mg/dL (8.4-10.2)
[2019-04-12 12:30] LABS: CREATINE KINASE MB 0.28 ng/mL (<4.55); TROPONIN I < 0.012 ng/mL
--- NOTE | 2019-04-12 12:32 | RADIOLOGY REPORT (SQ) ---
EXAM DESCRIPTION: CHEST SINGLE VIEW COMPLETED DATE/TIME: 04/12/2019 12:21 pm REASON FOR STUDY: altered mental status COMPARISON: 02/20/2019 and 04/20/2017. EXAM PARAMETERS: NUMBER OF VIEWS: One view. TECHNIQUE: Single frontal radiographic view of the chest acquired. RADIATION DOSE: NA LIMITATIONS: None. FINDINGS: LUNGS AND PLEURA: No opacities, masses or pneumothorax. No pleural effusion. MEDIASTINUM AND HILAR STRUCTURES: Chronic fullness in the right paratracheal soft tissues, probably d ue to overlapping vessels. HEART AND VASCULAR STRUCTURES: Heart normal in size. Normal vasculature. BONES: No acute findings. HARDWARE: None in the chest. OTHER: No other significant finding. IMPRESSION: NO ACUTE RADIOGRAPHIC FINDING IN THE CHEST. TECHNICAL DOCUMENTATION: JOB ID: [id number]- All Rights Reserved Reading location - IP/workstation name: [email or web address]
[2019-04-12 12:35] LABS: APPEARANCE,URINE CLOUDY; BILIRUBIN,URINE NEGATIVE (NEGATIVE); COLOR,URINE YELLOW; GLUCOSE, URINE NEGATIVE (NEGATIVE); KETONES,URINE NEGATIVE (NEGATIVE); LEUKOCYTE ESTERASE,URINE LARGE (NEGATIVE); NITRITE,URINE POSITIVE (NEGATIVE); PROTEIN,URINE 100 mg/dL (NEGATIVE); URINE SPECIFIC GRAVITY 1.015; UROBILINOGEN,URINE NEGATIVE mg/dL (<2.0)
[2019-04-12] MEDS ORDERED: NORMAL SALINE 1000 ML 1,000 ML IV ONE (13:08)
[2019-04-12] MEDS ORDERED: CEFTRIAXONE 1 GM/D5W RTU 1 GM/50 ML RTUPB IV ONE (13:08)
[2019-04-12] MEDS ORDERED: FUROSEMIDE INJ/PF 40 MG/4 ML SDV IV ONE (13:09)
--- NOTE | 2019-04-12 14:41 | EKG REPORT ---
SEVERITY:- BORDERLINE ECG - SINUS TACHYCARDIA BORDERLINE INFERIOR Q WAVES CONSIDER ANTERIOR INFARCT : Confirmed by: Timothy Deras MD 12-Apr-2019 14:40:15
[2019-04-12] MEDS ORDERED: PATIROMER 8.4 GM SUSP PACKET PO SCH (17:00)
[2019-04-12] MEDS: APIXABAN 2.5 MG TABLET PO SCH (20:11)
[2019-04-12] MEDS: NORMAL SALINE 1000 ML 1,000 ML IV PRN (20:14)
[2019-04-12] MEDS ORDERED: HEPARIN SOD (PORCINE) 5,000 UNIT/ML 1 ML VIAL SUBCUT SCH (22:00)
[2019-04-12] MEDS: LEVETIRACETAM XR 500 MG TAB.SR.24H PO SCH (22:11)
[2019-04-12] MEDS: LACOSAMIDE 100 MG TABLET PO SCH (22:11)
[2019-04-12] MEDS: GABAPENTIN 100 MG CAPSULE PO SCH (22:12)
[2019-04-12] MEDS: FERROUS SULFATE 325 MG TABLET PO SCH (22:12)
--- NOTE | 2019-04-12 22:19 | PDOC H&P ---
History of Present Illness Admission Date/PCP: 04/12/19 13:48 MARY RASHID MD Patient complains of: Generalized weakness History of Present Illness: IVY CLAIRE is a 78 year old female patient of Dr. Rashid and resident at [facility] who was presented to the ED due to reported increase twitching. Patient has history of partial seizure and occasional right sided twitching as per family. In recent days family noticed more than usual twitching, increase confusion, and less responsiveness. There was decrease oral intake of both food and water. Family was concern about possible urinary tract infection due to similar symptoms related to UTI in the patient. Her initial evaluation in the ED was significant for hyperkalemia, hypercalcemia, elevated BUN and creatinine suggestive of pre-renal azotemia, and abnormal urinalysis suggestive of possible infection. Her morbidities are stated below. She was advised hospitalization for further evaluation and management. Past Medical History Cardiac Medical History: Reports: Hyperlipidema, Hypertension, Pulmonary Embolism - 2 blood clots in her lungs a few years ago Denies: Atrial Fibrillation, Congestive Heart Failure, Coronary Artery Disease, Myocardial Infarction, Peripheral Vascular Disease, Heart Murmur Pulmonary Medical History: Reports: Bronchitis Denies: Asthma, Chronic Obstructive Pulmonary Disease (COPD), Pneumonia, Resp iratory Failure, Sleep Apnea, Tuberculosis Neurological Medical History: Comment Only: Seizures - UNSURE Endocrine Medical History: Reports: Hypothyroidism Renal/ Medical History: Denies: End Stage Renal Disease Malignancy Medical History: Denies: Leukemia, Lung Cancer GI Medical History: Denies: Hepatitis, Hiatal Hernia Musculoskeltal Medical History: Reports: Arthritis, Gout Denies: Fibromyalgia Psychiatric Medical History: Reports: Depression Hematology: Reports: Anemia Denies: Hemophilia, Sickle Cell Disease Infectious Medical History: Denies: HIV Past Surgical History Past Surgical History: Reports: Orthopedic Surgery - R knee replacement Denies: Amputation, Appendectomy, Section, Cholecystectomy, Coronary Artery Bypass Graft, Gastric Bypass Surgery, Herniorrhaphy, Hysterectomy, Mastectomy, Pacemaker, Tonsillectomy, Tubal Ligation Social History Smoking Status: Former Smoker Frequency of Alcohol Use: None Hx Recreational Drug Use: No Drugs: None Hx Prescription Drug Abuse: No - Advance Directive Resuscitation Status: Full Code Family History Family History: Reviewed & Not Pertinent Parental Family History Reviewed: Yes Children Family History Reviewed: Yes Sibling(s) Family History Reviewed.: Yes Medication/Allergy Home Medications: Allopurinol [Zyloprim 100 mg Tablet] 100 mg PO DAILY 02/20/19 Cholecalciferol (Vitamin D3) [Vitamin D3 1000 Unit Tablet] 2,000 unit PO DAILY 02/20/19 Ferrous Sulfate [Feosol 325 mg Tablet] 325 mg PO QHS 02/20/19 Gabapentin [Neurontin 100 mg Capsule] 200 mg PO QHS 02/20/19 L.acidoph/L.bulg/B.bif/S.therm [Bacid Caplet] 2 each PO BID 02/20/19 Lacosamide [Vimpat 100 mg Tablet] 100 mg PO Q12 02/20/19 Levothyroxine Sodium [Synthroid 0.075 mg Tablet] 0.075 mg PO Q6AM 02/20/19 Magnesium Oxide [Mag-Ox 400 mg Tablet] 400 mg PO DAILY 02/20/19 Megestrol Acetate [Megace [place] 400 mg/10 ml Udcup] 400 mg PO DAILY 02/20/19 Metoprolol Succinate [Toprol Xl 50 mg Tab.sr] 50 mg PO DAILY 02/20/19 Apixaban [Eliquis 2.5 mg Tablet] 2.5 mg PO BID 04/12/19 Butenafine HCl [Lotrimin Ultra 1% Cream] 1 applic TP DAILY 04/12/19 Fluconazole [Diflucan] 150 mg PO SA@1000 PRN 04/12/19 Levetiracetam [Keppra] 1,000 mg PO Q12 04/12/19 Nystatin [Mycostatin Topical Powder 15 gm] 1 applic TP DAILY 04/12/19 Allergies/Adverse Reactions: steriods Allergy (Uncoded 08/10/18 12:33) steroids Adverse Reaction (Intermediate, Uncoded 08/10/18 12:33) Review of Systems Constitutional: ABSENT: chills, fever(s), headache(s), weight gain, weight loss Eyes: ABSENT: visual disturbances Ears: ABSENT: hearing changes Nose, Mouth, and Throat: PRESENT: as per HPI. ABSENT: headache(s), mouth pain, sore throat, vertigo Cardiovascular: ABSENT: chest pain, dyspnea on exertion, edema, orthropnea, palpitations Respiratory: ABSENT: cough, hemoptysis Gastrointestinal: PRESENT: other - poor appetite and oral intake.. ABSENT: abdominal pain, constipation, diarrhea, hematemesis, hematochezia, nausea, vomiting Genitourinary: PRESENT: other - family reported presence of rash region in genital region. ABSENT: dysuria, hematuria Musculoskeletal: ABSENT: joint swelling Integumentary: ABSENT: rash, wounds Neurological: PRESENT: confusion, weakness - generalized, other - muscle twitching Psychiatric: ABSENT: anxiety, depression, homidical ideation, suicidal ideation Endocrine: ABSENT: cold intolerance, heat intolerance, polydipsia, polyuria Hematologic/Lymphatic: ABSENT: easy bleeding, easy bruising Allergic/Immunologic: ABSENT: seasonal rhinorrhea Physical Exam Vital Signs: Temp Pulse Resp BP Pulse Ox 98.4 F 102 H 16 112/74 99 04/12/19 21:00 04/12/19 21:00 04/12/19 21:00 04/12/19 21:00 04/12/19 21:00 Intake & Output 04/11/19 04/12/19 04/13/19 06:59 06:59 06:59 Intake Total 1050 Balance 1050 Weight 99.976 kg General appearance: PRESENT: no acute distress Head exam: PRESENT: atraumatic, normocephalic Eye exam: PRESENT: conjunctiva pink, EOMI, PERRLA. ABSENT: scleral icterus Ear exam: PRESENT: normal external ear exam Mouth exam: PRESENT: dry mucosa Respiratory exam: PRESENT: clear to auscultation heidi, decreased breath sounds - at lung bases Cardiovascular exam: PRESENT: RRR. ABSENT: diastolic murmur, rubs, systolic murmur Vascular exam: PRESENT: normal capillary refill. ABSENT: pallor GI/Abdominal exam: PRESENT: normal bowel sounds, soft. ABSENT: distended, guarding, mass, organolmegaly, rebound, tenderness Rectal exam: PRESENT: deferred Extremities exam: ABSENT: pedal edema, tenderness Musculoskeletal exam: PRESENT: normal inspection Neurological exam: PRESENT: alert, awake Psychiatric exam: PRESENT: appropriate affect, normal mood. ABSENT: homicidal ideation, suicidal ideation Skin exam: PRESENT: dry, warm Results Laboratory Results: 04/12/19 11:40 04/12/19 11:40 04/12/19 04/12/19 04/12/19 10:45 10:45 11:40 WBC Cancelled 9.3 RBC Cancelled 3.66 L Hgb Cancelled 11.5 L Hct Cancelled 34.5 L MCV Cancelled 94 D MCH Cancelled 31.3 MCHC Cancelled 33.2 RDW Cancelled 19.0 H Plt Count Cancelled 354 Seg Neutrophils % Cancelled 68.9 VBG pH VBG pCO2 VBG HCO3 VBG Base Excess Sodium Cancelled Potassium Cancelled Chloride Cancelled Carbon Dioxide Cancelled Anion Gap Cancelled BUN Cancelled Creatinine Cancelled Est GFR ( Amer) Cancelled Est GFR (Non-Af Amer) Cancelled Glucose Cancelled Lactic Acid Calcium Cancelled Magnesium Total Bilirubin Cancelled AST Cancelled Alkaline Phosphatase Cancelled Total Protein Cancelled Albumin Cancelled Urine Color Urine Appearance Urine pH Ur Specific [place] Urine Protein Urine Glucose (UA) Urine Ketones Urine Blood Urine Nitrite Ur Leukocyte Esterase Urine WBC (Auto) Urine RBC (Auto) 04/12/19 04/12/19 04/12/19 11:40 11:40 11:40 WBC RBC Hgb Hct MCV MCH MCHC RDW Plt Count Seg Neutrophils % VBG pH 7.31 VBG pCO2 45.0 VBG HCO3 21.9 VBG Base Excess -4.5 Sodium 141.9 Potassium 6.1 H* Chloride 109 H Carbon Dioxide 21 L Anion Gap 12 BUN 62 H Creatinine 1.78 H Est GFR ( Amer) 33 L Est GFR (Non-Af Amer) Glucose 98 Lactic Acid 1.5 Calcium 12.1 H* Magnesium 2.2 Total Bilirubin 0.4 AST 21 Alkaline Phosphatase 67 Total Protein 7.7 Albumin 3.9 Urine Color Urine Appearance Urine pH Ur Specific [place] Urine Protein Urine Glucose (UA) Urine Ketones Urine Blood Urine Nitrite Ur Leukocyte Esterase Urine WBC (Auto) Urine RBC (Auto) 04/12/19 12:15 WBC RBC Hgb Hct MCV MCH MCHC RDW Plt Count Seg Neutrophils % VBG pH VBG pCO2 VBG HCO3 VBG Base Excess Sodium Potassium Chloride Carbon Dioxide Anion Gap BUN Creatinine Est GFR ( Amer) Est GFR (Non-Af Amer) Glucose Lactic Acid Calcium Magnesium Total Bilirubin AST Alkaline Phosphatase Total Protein Albumin Urine Color YELLOW Urine Appearance CLOUDY Urine pH 9.0 Ur Specific [place] 1.015 Urine Protein 100 H Urine Glucose (UA) NEGATIVE Urine Ketones NEGATIVE Urine Blood NEGATIVE Urine Nitrite POSITIVE H Ur Leukocyte Esterase LARGE H Urine WBC (Auto) >182 Urine RBC (Auto) 8 04/12/19 04/12/19 04/12/19 10:45 10:45 11:40 Creatine Kinase Cancelled 78 CK-MB (CK-2) Cancelled Troponin I Cancelled 04/12/19 11:40 Creatine Kinase CK-MB (CK-2) 0.28 Troponin I < 0.012 Impressions: Chest X-Ray 04/12/19 11:33 IMPRESSION: NO ACUTE RADIOGRAPHIC FINDING IN THE CHEST. Assessment & Plan - Diagnosis (1) Acute metabolic encephalopathy Is this a current diagnosis for this admission?: Yes Plan: See covering admitting attending physician orders for details about care plan. (2) Acute renal failure Qualifiers: Acute renal failure type: unspecified Qualified Code(s): N17.9 - Acute kidney failure, unspecified Is this a current diagnosis for this admission?: Yes Plan: See covering admitting attending physician orders for details about care plan. (3) Hypercalcemia Is this a current diagnosis for this admission?: Yes Plan: See covering admitting attending physician orders for details about care plan. (4) Hyperkalemia Is this a current diagnosis for this admission?: Yes Plan: See covering admitting attending physician orders for details about care plan. (5) Urinary tract infection Qualifiers: Urinary tract infection type: acute cystitis Hematuria presence: without hematuria Qualified Code(s): N30.00 - Acute cystitis without hematuria Is this a current diagnosis for this admission?: Yes Plan: See covering admitting attending physician orders for details about care plan. (6) Hypertension Qualifiers: Hypertension type: essential hypertension Qualified Code(s): I10 - Essential (primary) hypertension Is this a current diagnosis for this admission?: Yes Plan: See covering admitting attending physician orders for details about care plan. (7) Hypothyroidism Qualifiers: Hypothyroidism type: unspecified Qualified Code(s): E03.9 - Hypothyroidism, unspecified Is this a current diagnosis for this admission?: Yes Plan: See covering admitting attending physician orders for details about care plan. - Time Time Spent: 50 to 70 Minutes Medications reviewed and adjusted accordingly: Yes Anticipated discharge: SNF Within: Other - Inpatient Certification Based on my medical assessment, after consideration of the patient's comorbidities, presenting symptoms, or acuity I expect that the services needed warrant INPATIENT care.: Yes I certify that my determination is in accordance with my understanding of Medicare's requirements for reasonable and necessary INPATIENT services [42 CFR 412.3e].: Yes Medical Necessity: Significant Comorbidiites Make Outpatient Treatment Too Ri tatyana, Need Close Monitoring Due to Risk of Patient Decompensation, Need For IV Fluids, Need For Continuous Telemetry Monitoring, Need for IV Antibiotics, Risk of Complication if Not Cared For in Hospital, Risk of Diagnosis Which Will Require Inpatient Eval/Care/Monitoring Post Hospital Care: D/C or Transfer Summary - Plan Summary Plan Summary: See covering admitting attending physician orders for details about care plan.
[2019-04-12] MEDS ORDERED: LEVETIRACETAM 500 MG TABLET PO ONE (22:26)
[2019-04-13] MEDS ORDERED: LEVETIRACETAM XR 500 MG TAB.SR.24H PO ONE (00:30)
[2019-04-13] MEDS ORDERED: LEVETIRACETAM 500 MG TABLET PO ONE (00:45)
[2019-04-13] MEDS ORDERED: INFLUENZA QUAD (6MOS+) 2019-20 VAC 0.5 ML SYR IM ONE (04:51)
[2019-04-13 05:39] LABS: ABSOLUTE BASOPHILS # (AUTO) 0.1 10^3/uL (0.0-0.2); ABSOLUTE EOSINOPHILS # (AUTO) 0.4 10^3/uL (0.0-0.6); ABSOLUTE LYMPHOCYTES (AUTO) 1.6 10^3/uL (0.5-4.7); ABSOLUTE MONOCYTES (AUTO) 0.9 10^3/uL (0.1-1.4); ABSOLUTE NEUT (AUTO) 6.1 10^3/uL (1.7-8.2); EOSINOPHILS % (AUTO) 4.5 % (0-6); HEMATOCRIT 33.2 % (36.0-47.0); HEMOGLOBIN 11.1 g/dL (12.0-15.5); LYMPHOCYTES % (AUTO) 17.4 % (13-45); MEAN CORPUSCULAR HEMOGLOBIN 31.6 pg (27.0-33.4); MEAN CORPUSCULAR HGB CONC 33.5 g/dL (32.0-36.0); MEAN CORPUSCULAR VOLUME 94 fl (80-97); MONOCYTES % (AUTO) 10.4 % (3-13); PLATELET COUNT 320 10^3/uL (150-450); RED BLOOD COUNT 3.52 10^6/uL (3.72-5.28); RED CELL DISTRIBUTION WIDTH 19.2 % (11.5-14.0); SEGMENTED NEUTROPHILS % (AUTO) 66.7 % (42-78); TOTAL CELLS COUNTED % (AUTO) 100 %; WHITE BLOOD COUNT 9.1 10^3/uL (4.0-10.5)
[2019-04-13] MEDS: LEVOTHYROXINE SODIUM 0.075 MG TABLET PO SCH (05:45)
[2019-04-13 05:48] LABS: ALBUMIN 3.7 g/dL (3.5-5.0); ALKALINE PHOSPHATASE 64 U/L (38-126); ANION GAP 12 (5-19); ASPARTATE AMINO TRANSFERASE 22 U/L (14-36); BILIRUBIN,DIRECT 0.2 mg/dL (0.0-0.4); BILIRUBIN,TOTAL 0.4 mg/dL (0.2-1.3); BLOOD UREA NITROGEN 63 mg/dL (7-20); CARBON DIOXIDE 20 mmol/L (22-30); CHLORIDE 109 mmol/L (98-107); GLUCOSE 94 mg/dL (75-110); PHOSPHORUS 5.5 mg/dL (2.5-4.5); TOTAL PROTEIN 7.1 g/dL (6.3-8.2)
[2019-04-13 06:03] LABS: CALCIUM 12.2 mg/dL (8.4-10.2); POTASSIUM 6.1 mmol/L (3.6-5.0)
[2019-04-13] MEDS ORDERED: FUROSEMIDE INJ/PF 40 MG/4 ML SDV IV ONE (07:00)
[2019-04-13] MEDS ORDERED: SODIUM POLYSTYRENE SULFONATE 15 GM/60 ML PO ONE ×2 (07:30→09:00)
[2019-04-13] MEDS: NORMAL SALINE 1000 ML 1,000 ML IV PRN ×2 (08:21→18:53)
[2019-04-13] MEDS: APIXABAN 2.5 MG TABLET PO SCH ×2 (10:44→18:53)
[2019-04-13] MEDS: LACTOBACILLUS ACIDOPHILUS 250 MG TAB PO SCH ×2 (10:44→18:53)
[2019-04-13] MEDS: METOPROLOL SUCCINATE 50 MG TAB.SR.24H PO SCH (10:44)
[2019-04-13] MEDS: CLOTRIMAZOLE 1% CREAM 15 GM TP SCH (10:44)
[2019-04-13] MEDS: LACOSAMIDE 100 MG TABLET PO SCH ×2 (10:44→21:02)
[2019-04-13] MEDS: MAGNESIUM OXIDE 400 MG TABLET PO SCH (10:44)
[2019-04-13] MEDS: LEVETIRACETAM XR 500 MG TAB.SR.24H PO SCH ×2 (10:44→21:03)
[2019-04-13] MEDS: ALLOPURINOL 100 MG TABLET PO SCH (10:44)
[2019-04-13] MEDS: NYSTATIN TOPICAL POWDER 15 GM TP SCH (10:45)
[2019-04-13 18:40] LABS: ALBUMIN 3.6 g/dL (3.5-5.0); ALKALINE PHOSPHATASE 58 U/L (38-126); ANION GAP 13 (5-19); ASPARTATE AMINO TRANSFERASE 21 U/L (14-36); BILIRUBIN,DIRECT 0.3 mg/dL (0.0-0.4); BILIRUBIN,TOTAL 0.4 mg/dL (0.2-1.3); BLOOD UREA NITROGEN 59 mg/dL (7-20); CALCIUM 11.2 mg/dL (8.4-10.2); CARBON DIOXIDE 19 mmol/L (22-30); CHLORIDE 107 mmol/L (98-107); GLUCOSE 118 mg/dL (75-110); TOTAL PROTEIN 6.9 g/dL (6.3-8.2)
[2019-04-13 19:00] LABS: POTASSIUM 4.9 mmol/L (3.6-5.0)
--- NOTE | 2019-04-13 20:50 | PDOC PROGRESS REPORT ---
Subjective Progress Note for:: 04/13/19 Subjective:: Patient seen by the bedside, she was admitted for evaluation of altered mental status associated with acute kidney injury with a background of chronic kidney disease stage III there was hyperkalemia, hypercalcemia. She is alert and oriented the repeat basic metabolic panel demonstrated resolved hyperkalemia, she also has UTI now started on Rocephin IV Reason For Visit: UTI,ACUTE RENAL FAILURE,HYPERCALECEMIA Physical Exam Vital Signs: Temp Pulse Resp BP Pulse Ox 98.0 F 99 18 94/56 L 99 04/13/19 15:36 04/13/19 15:36 04/13/19 15:36 04/13/19 15:36 04/13/19 15:36 Intake & Output 04/12/19 04/13/19 04/14/19 06:59 06:59 06:59 Intake Total 2050 1240 Output Total 400 1300 Balance 1650 -60 Weight 86.1 kg General appearance: PRESENT: no acute distress Eye exam: PRESENT: PERRLA Respiratory exam: PRESENT: clear to auscultation heidi Cardiovascular exam: PRESENT: +S1, +S2 GI/Abdominal exam: PRESENT: soft Neurological exam: PRESENT: alert, CN II-XII grossly intact Results Laboratory Results: 04/13/19 04:37 04/13/19 17:55 04/13/19 04/13/19 04/13/19 04:37 04:37 17:55 WBC 9.1 RBC 3.52 L Hgb 11.1 L Hct 33.2 L MCV 94 MCH 31.6 MCHC 33.5 RDW 19.2 H Plt Count 320 Seg Neutrophils % 66.7 Sodium 140.9 138.9 Potassium 6.1 H* 4.9 D Chloride 109 H 107 Carbon Dioxide 20 L 19 L Anion Gap 12 13 BUN 63 H 59 H Creatinine 1.80 H 1.65 H Est GFR ( Amer) 33 L 37 L Glucose 94 118 H Calcium 12.2 H* 11.2 H Phosphorus 5.5 H Magnesium 2.2 Total Bilirubin 0.4 0.4 AST 22 21 Alkaline Phosphatase 64 58 Total Protein 7.1 6.9 Albumin 3.7 3.6 04/12/19 04/12/19 04/12/19 10:45 10:45 11:40 Creatine Kinase Cancelled 78 CK-MB (CK-2) Cancelled Troponin I Cancelled 04/12/19 11:40 Creatine Kinase CK-MB (CK-2) 0.28 Troponin I < 0.012 Impressions: Chest X-Ray 04/12/19 11:33 IMPRESSION: NO ACUTE RADIOGRAPHIC FINDING IN THE CHEST. Assessment & Plan - Diagnosis (1) Acute kidney injury Is this a current diagnosis for this admission?: Yes Plan: Continue IV hydration (2) Hyperkalemia Is this a current diagnosis for this admission?: Yes (3) Hypercalcemia Is this a current diagnosis for this admission?: Yes Plan: Check PTH (4) Chronic kidney disease, stage 3 Is this a current diagnosis for this admission?: Yes (5) Urinary tract infection Qualifiers: Urinary tract infection type: site unspecified Hematuria presence: without hematuria Qualified Code(s): N39.0 - Urinary tract infection, site not specified Is this a current diagnosis for this admission?: Yes Plan: Start IV antibiotic - Time Time Spent with patient: 25-34 minutes Level of Care: IMCU
[2019-04-13] MEDS: CEFTRIAXONE 1 GM/D5W RTU 1 GM/50 ML RTUPB IV SCH (20:59)
[2019-04-13] MEDS: GABAPENTIN 100 MG CAPSULE PO SCH (21:02)
[2019-04-13] MEDS: FERROUS SULFATE 325 MG TABLET PO SCH (21:02)
[2019-04-14] MEDS: LEVOTHYROXINE SODIUM 0.075 MG TABLET PO SCH (06:54)
[2019-04-14] MEDS: LACTOBACILLUS ACIDOPHILUS 250 MG TAB PO SCH ×2 (09:40→17:27)
[2019-04-14] MEDS: LACOSAMIDE 100 MG TABLET PO SCH ×2 (09:40→21:08)
[2019-04-14] MEDS: LEVETIRACETAM XR 500 MG TAB.SR.24H PO SCH ×2 (09:40→21:08)
[2019-04-14] MEDS: METOPROLOL SUCCINATE 50 MG TAB.SR.24H PO SCH (09:40)
[2019-04-14] MEDS: ALLOPURINOL 100 MG TABLET PO SCH (09:40)
[2019-04-14] MEDS: MAGNESIUM OXIDE 400 MG TABLET PO SCH (09:40)
[2019-04-14] MEDS: APIXABAN 2.5 MG TABLET PO SCH ×2 (09:40→17:27)
[2019-04-14] MEDS: CLOTRIMAZOLE 1% CREAM 15 GM TP SCH (09:40)
[2019-04-14] MEDS: NORMAL SALINE 1000 ML 1,000 ML IV PRN (09:41)
[2019-04-14] MEDS: NYSTATIN TOPICAL POWDER 15 GM TP SCH (09:41)
[2019-04-14] MEDS: CEFTRIAXONE 1 GM/D5W RTU 1 GM/50 ML RTUPB IV SCH (21:07)
[2019-04-14] MEDS: GABAPENTIN 100 MG CAPSULE PO SCH (21:08)
[2019-04-14] MEDS: FERROUS SULFATE 325 MG TABLET PO SCH (21:08)
--- NOTE | 2019-04-14 23:11 | PDOC PROGRESS REPORT ---
Subjective Progress Note for:: 04/14/19 Subjective:: Patient seen by the bedside, he continues to respond to treatment Reason For Visit: UTI,ACUTE RENAL FAILURE,HYPERCALECEMIA Physical Exam Vital Signs: Temp Pulse Resp BP Pulse Ox 98.2 F 92 16 133/78 H 97 04/14/19 21:02 04/14/19 21:02 04/14/19 21:02 04/14/19 21:02 04/14/19 21:02 Intake & Output 04/13/19 04/14/19 04/15/19 06:59 06:59 06:59 Intake Total 2050 2290 920 Output Total 400 1650 375 Balance 1650 640 545 Weight 86.1 kg 85 kg General appearance: PRESENT: no acute distress Eye exam: PRESENT: PERRLA Respiratory exam: PRESENT: clear to auscultation heidi Cardiovascular exam: PRESENT: +S1, +S2 GI/Abdominal exam: PRESENT: soft Results Laboratory Results: 04/13/19 04:37 04/13/19 17:55 04/12/19 12:15 Catheterized Urine Urine Culture - Final Providencia Rettgeri 04/12/19 04/12/19 04/12/19 10:45 10:45 11:40 Creatine Kinase Cancelled 78 CK-MB (CK-2) Cancelled Troponin I Cancelled 04/12/19 11:40 Creatine Kinase CK-MB (CK-2) 0.28 Troponin I < 0.012 Impressions: Chest X-Ray 04/12/19 11:33 IMPRESSION: NO ACUTE RADIOGRAPHIC FINDING IN THE CHEST. Assessment & Plan - Diagnosis (1) Acute kidney injury Is this a current diagnosis for this admission?: Yes (2) Hyperkalemia Is this a current diagnosis for this admission?: Yes (3) Hypercalcemia Is this a current diagnosis for this admission?: Yes (4) Chronic kidney disease, stage 3 Is this a current diagnosis for this admission?: Yes (5) Urinary tract infection Qualifiers: Urinary tract infection type: site unspecified Hematuria presence: without hematuria Qualified Code(s): N39.0 - Urinary tract infection, site not specified Is this a current diagnosis for this admission?: Yes - Time Time Spent with patient: 25-34 minutes
[2019-04-14 23:50] LABS: ABSOLUTE BASOPHILS # (AUTO) 0.1 10^3/uL (0.0-0.2); ABSOLUTE EOSINOPHILS # (AUTO) 0.3 10^3/uL (0.0-0.6); ABSOLUTE LYMPHOCYTES (AUTO) 1.6 10^3/uL (0.5-4.7); ABSOLUTE MONOCYTES (AUTO) 0.9 10^3/uL (0.1-1.4); ABSOLUTE NEUT (AUTO) 6.6 10^3/uL (1.7-8.2); BASOPHILS % (AUTO) 0.6 % (0-2); EOSINOPHILS % (AUTO) 3.5 % (0-6); HEMOGLOBIN 10.7 g/dL (12.0-15.5); LYMPHOCYTES % (AUTO) 16.5 % (13-45); MEAN CORPUSCULAR HEMOGLOBIN 31.5 pg (27.0-33.4); MEAN CORPUSCULAR HGB CONC 33.3 g/dL (32.0-36.0); MEAN CORPUSCULAR VOLUME 95 fl (80-97); MONOCYTES % (AUTO) 9.2 % (3-13); PLATELET COUNT 293 10^3/uL (150-450); RED BLOOD COUNT 3.39 10^6/uL (3.72-5.28); RED CELL DISTRIBUTION WIDTH 18.5 % (11.5-14.0); SEGMENTED NEUTROPHILS % (AUTO) 70.2 % (42-78); TOTAL CELLS COUNTED % (AUTO) 100 %; WHITE BLOOD COUNT 9.5 10^3/uL (4.0-10.5)
[2019-04-15 00:06] LABS: ALBUMIN 3.8 g/dL (3.5-5.0); ALKALINE PHOSPHATASE 57 U/L (38-126); ANION GAP 16 (5-19); ASPARTATE AMINO TRANSFERASE 25 U/L (14-36); BILIRUBIN,DIRECT 0.3 mg/dL (0.0-0.4); BILIRUBIN,TOTAL 0.3 mg/dL (0.2-1.3); BLOOD UREA NITROGEN 49 mg/dL (7-20); CALCIUM 10.9 mg/dL (8.4-10.2); CARBON DIOXIDE 15 mmol/L (22-30); CHLORIDE 109 mmol/L (98-107); GLUCOSE 110 mg/dL (75-110); POTASSIUM 4.1 mmol/L (3.6-5.0); TOTAL PROTEIN 7.6 g/dL (6.3-8.2)
[2019-04-15] MEDS: NORMAL SALINE 1000 ML 1,000 ML IV PRN ×3 (00:06→18:47)
[2019-04-15] MEDS: LEVOTHYROXINE SODIUM 0.075 MG TABLET PO SCH (05:36)
[2019-04-15 06:15] LABS: ABSOLUTE BASOPHILS # (AUTO) 0.1 10^3/uL (0.0-0.2); ABSOLUTE EOSINOPHILS # (AUTO) 0.3 10^3/uL (0.0-0.6); ABSOLUTE LYMPHOCYTES (AUTO) 1.6 10^3/uL (0.5-4.7); ABSOLUTE MONOCYTES (AUTO) 0.7 10^3/uL (0.1-1.4); ABSOLUTE NEUT (AUTO) 4.9 10^3/uL (1.7-8.2); BASOPHILS % (AUTO) 0.8 % (0-2); HEMATOCRIT 31.3 % (36.0-47.0); HEMOGLOBIN 10.6 g/dL (12.0-15.5); LYMPHOCYTES % (AUTO) 21.3 % (13-45); MEAN CORPUSCULAR HEMOGLOBIN 31.7 pg (27.0-33.4); MEAN CORPUSCULAR HGB CONC 33.8 g/dL (32.0-36.0); MEAN CORPUSCULAR VOLUME 94 fl (80-97); MONOCYTES % (AUTO) 8.7 % (3-13); PLATELET COUNT 282 10^3/uL (150-450); RED BLOOD COUNT 3.33 10^6/uL (3.72-5.28); RED CELL DISTRIBUTION WIDTH 18.3 % (11.5-14.0); SEGMENTED NEUTROPHILS % (AUTO) 65.2 % (42-78); TOTAL CELLS COUNTED % (AUTO) 100 %; WHITE BLOOD COUNT 7.5 10^3/uL (4.0-10.5)
[2019-04-15] MEDS: ALLOPURINOL 100 MG TABLET PO SCH (09:30)
[2019-04-15] MEDS: APIXABAN 2.5 MG TABLET PO SCH ×2 (09:30→17:17)
[2019-04-15] MEDS: LACTOBACILLUS ACIDOPHILUS 250 MG TAB PO SCH ×2 (09:30→17:17)
[2019-04-15] MEDS: LEVETIRACETAM XR 500 MG TAB.SR.24H PO SCH ×2 (09:30→22:23)
[2019-04-15] MEDS: METOPROLOL SUCCINATE 50 MG TAB.SR.24H PO SCH (09:30)
[2019-04-15] MEDS: MAGNESIUM OXIDE 400 MG TABLET PO SCH (09:30)
[2019-04-15] MEDS: LACOSAMIDE 100 MG TABLET PO SCH ×2 (09:30→22:23)
[2019-04-15] MEDS: CLOTRIMAZOLE 1% CREAM 15 GM TP SCH (09:37)
[2019-04-15] MEDS: NYSTATIN TOPICAL POWDER 15 GM TP SCH (09:37)
--- NOTE | 2019-04-15 11:01 | PDOC PROGRESS REPORT ---
Subjective Progress Note for:: 04/15/19 Subjective:: Patient is currently doing fair Patient is alert awake talking not sure about underlying confusions Denied any chest pain no short of breath According to the nursing staff patient usually do not walk and did not participate in the physical therapy very well Reason For Visit: UTI,ACUTE RENAL FAILURE,HYPERCALECEMIA Physical Exam Vital Signs: Temp Pulse Resp BP Pulse Ox 98.5 F 94 16 122/80 100 04/15/19 08:30 04/15/19 08:30 04/15/19 08:30 04/15/19 08:30 04/15/19 08:30 Intake & Output 04/14/19 04/15/19 04/16/19 06:59 06:59 06:59 Intake Total 2290 1470 938 Output Total 1650 1125 Balance 640 345 938 Weight 85 kg 91.1 kg General appearance: PRESENT: no acute distress Eye exam: PRESENT: PERRLA Mouth exam: PRESENT: neck supple Respiratory exam: PRESENT: clear to auscultation heidi Cardiovascular exam: PRESENT: +S1, +S2 GI/Abdominal exam: PRESENT: normal bowel sounds, soft Extremities exam: ABSENT: pedal edema Neurological exam: PRESENT: alert, awake Results Laboratory Results: 04/15/19 05:36 04/14/19 23:33 04/14/19 04/14/19 04/15/19 23:33 23:33 05:36 WBC 9.5 7.5 RBC 3.39 L 3.33 L Hgb 10.7 L 10.6 L Hct 32.0 L 31.3 L MCV 95 94 MCH 31.5 31.7 MCHC 33.3 33.8 RDW 18.5 H 18.3 H Plt Count 293 282 Seg Neutrophils % 70.2 65.2 Sodium 140.2 Potassium 4.1 Chloride 109 H Carbon Dioxide 15 L Anion Gap 16 BUN 49 H Creatinine 1.48 H Est GFR ( Amer) 41 L Glucose 110 Calcium 10.9 H Total Bilirubin 0.3 AST 25 Alkaline Phosphatase 57 Total Protein 7.6 Albumin 3.8 04/12/19 12:15 Catheterized Urine Urine Culture - Final Providencia Rettgeri 04/12/19 04/12/19 04/12/19 10:45 10:45 11:40 Creatine Kinase Cancelled 78 CK-MB (CK-2) Cancelled Troponin I Cancelled 04/12/19 11:40 Creatine Kinase CK-MB (CK-2) 0.28 Troponin I < 0.012 Impressions: Chest X-Ray 04/12/19 11:33 IMPRESSION: NO ACUTE RADIOGRAPHIC FINDING IN THE CHEST. Assessment & Plan - Diagnosis (1) Acute kidney injury Is this a current diagnosis for this admission?: Yes (2) Hyperkalemia Is this a current diagnosis for this admission?: Yes (3) Adult failure to thrive syndrome Is this a current diagnosis for this admission?: Yes (4) Urinary tract infection Qualifiers: Urinary tract infection type: site unspecified Hematuria presence: without hematuria Qualified Code(s): N39.0 - Urinary tract infection, site not specified Is this a current diagnosis for this admission?: Yes - Time Time Spent with patient: 15-24 minutes Level of Care: IMCU Medications reviewed and adjusted accordingly: Yes Anticipated discharge: Other Within: Other - Plan Summary Plan Summary: We will repeat the blood work in the morning Continues the IV antibiotic Physical therapy evaluations
[2019-04-15] MEDS: DIPHENHYDRAMINE HCL 25 MG/10 ML UDC PO PRN (17:17)
[2019-04-15] MEDS: ACETAMINOPHEN 325 MG TABLET PO PRN (18:36)
[2019-04-15] MEDS: FERROUS SULFATE 325 MG TABLET PO SCH (22:22)
[2019-04-15] MEDS: GABAPENTIN 100 MG CAPSULE PO SCH (22:22)
[2019-04-15] MEDS: CEFTRIAXONE 1 GM/D5W RTU 1 GM/50 ML RTUPB IV SCH (22:23)
[2019-04-16] MEDS: NORMAL SALINE 1000 ML 1,000 ML IV PRN ×2 (05:16→15:34)
[2019-04-16] MEDS: LEVOTHYROXINE SODIUM 0.075 MG TABLET PO SCH (05:17)
[2019-04-16] MEDS: MAGNESIUM OXIDE 400 MG TABLET PO SCH (10:00)
[2019-04-16] MEDS: LACOSAMIDE 100 MG TABLET PO SCH ×2 (10:00→21:57)
[2019-04-16] MEDS: APIXABAN 2.5 MG TABLET PO SCH ×2 (10:00→18:19)
[2019-04-16] MEDS: ALLOPURINOL 100 MG TABLET PO SCH (10:00)
[2019-04-16] MEDS: LACTOBACILLUS ACIDOPHILUS 250 MG TAB PO SCH ×2 (10:00→18:19)
[2019-04-16] MEDS: LEVETIRACETAM XR 500 MG TAB.SR.24H PO SCH ×2 (10:00→22:00)
[2019-04-16] MEDS: CLOTRIMAZOLE 1% CREAM 15 GM TP SCH (10:00)
[2019-04-16] MEDS: METOPROLOL SUCCINATE 50 MG TAB.SR.24H PO SCH (10:00)
[2019-04-16] MEDS: NYSTATIN TOPICAL POWDER 15 GM TP SCH (10:01)
[2019-04-16] MEDS: ACETAMINOPHEN 325 MG TABLET PO PRN ×2 (10:02→21:59)
--- NOTE | 2019-04-16 10:35 | PDOC PROGRESS REPORT ---
Subjective Progress Note for:: 04/16/19 Subjective:: Patient is currently doing well Patient itching is better after the Benadryl Denied any chest pain no short of breath Reason For Visit: UTI,ACUTE RENAL FAILURE,HYPERCALECEMIA Physical Exam Vital Signs: Temp Pulse Resp BP Pulse Ox 98.3 F 87 17 126/57 H 100 04/16/19 07:25 04/16/19 07:25 04/16/19 07:25 04/16/19 07:25 04/16/19 07:25 Intake & Output 04/15/19 04/16/19 04/17/19 06:59 06:59 06:59 Intake Total 1470 3595 Output Total 1125 1325 Balance 345 2270 Weight 91.1 kg General appearance: PRESENT: no acute distress, well-developed, well-nourished Head exam: PRESENT: atraumatic, normocephalic Eye exam: PRESENT: conjunctiva pink, EOMI, PERRLA. ABSENT: scleral icterus Ear exam: PRESENT: normal external ear exam Mouth exam: PRESENT: moist, tongue midline Neck exam: PRESENT: full ROM. ABSENT: carotid bruit, JVD, lymphadenopathy, thyromegaly Respiratory exam: PRESENT: clear to auscultation heidi Cardiovascular exam: PRESENT: RRR. ABSENT: diastolic murmur, rubs, systolic murmur Pulses: PRESENT: normal dorsalis pedis pul, +2 pedal pulses bilateral Vascular exam: PRESENT: normal capillary refill GI/Abdominal exam: PRESENT: normal bowel sounds, soft. ABSENT: distended, guarding, mass, organolmegaly, rebound, tenderness Rectal exam: PRESENT: deferred Neurological exam: PRESENT: alert, awake, oriented to person, oriented to place, oriented to time, oriented to situation, CN II-XII grossly intact. ABSENT: motor sensory deficit Psychiatric exam: PRESENT: appropriate affect, normal mood. ABSENT: homicidal ideation, suicidal ideation Skin exam: PRESENT: dry, intact, warm. ABSENT: cyanosis, rash Results Laboratory Results: 04/15/19 05:36 04/14/19 23:33 04/12/19 04/12/19 04/12/19 10:45 10:45 11:40 Creatine Kinase Cancelled 78 CK-MB (CK-2) Cancelled Troponin I Cancelled 04/12/19 11:40 Creatine Kinase CK-MB (CK-2) 0.28 Troponin I < 0.012 Impressions: Chest X-Ray 04/12/19 11:33 IMPRESSION: NO ACUTE RADIOGRAPHIC FINDING IN THE CHEST. Assessment & Plan - Diagnosis (1) Acute kidney injury Is this a current diagnosis for this admission?: Yes (2) Hyperkalemia Is this a current diagnosis for this admission?: Yes (3) Adult failure to thrive syndrome Is this a current diagnosis for this admission?: Yes (4) Urinary tract infection Qualifiers: Urinary tract infection type: site unspecified Hematuria presence: without hematuria Qualified Code(s): N39.0 - Urinary tract infection, site not specified Is this a current diagnosis for this admission?: Yes - Time Time Spent with patient: 15-24 minutes Level of Care: IMCU Medications reviewed and adjusted accordingly: Yes Anticipated discharge: Other Within: Other - Plan Summary Plan Summary: Continues current medications
[2019-04-16] MEDS: GABAPENTIN 100 MG CAPSULE PO SCH (21:57)
[2019-04-16] MEDS: FERROUS SULFATE 325 MG TABLET PO SCH (21:57)
[2019-04-16] MEDS: CEFTRIAXONE 1 GM/D5W RTU 1 GM/50 ML RTUPB IV SCH (21:58)
[2019-04-17] MEDS ORDERED: IBUPROFEN 800 MG TABLET ONE (01:54)
[2019-04-17] MEDS: DIPHENHYDRAMINE HCL 25 MG/10 ML UDC PO PRN ×2 (01:59→13:47)
[2019-04-17] MEDS: NORMAL SALINE 1000 ML 1,000 ML IV PRN (02:00)
[2019-04-17] MEDS ORDERED: IBUPROFEN 800 MG TABLET PO ONE (02:15)
[2019-04-17 04:27] LABS: ABSOLUTE BASOPHILS # (AUTO) 0.1 10^3/uL (0.0-0.2); ABSOLUTE EOSINOPHILS # (AUTO) 0.5 10^3/uL (0.0-0.6); ABSOLUTE LYMPHOCYTES (AUTO) 1.7 10^3/uL (0.5-4.7); ABSOLUTE MONOCYTES (AUTO) 0.7 10^3/uL (0.1-1.4); ABSOLUTE NEUT (AUTO) 4.5 10^3/uL (1.7-8.2); BASOPHILS % (AUTO) 0.7 % (0-2); EOSINOPHILS % (AUTO) 6.3 % (0-6); HEMATOCRIT 30.5 % (36.0-47.0); HEMOGLOBIN 10.3 g/dL (12.0-15.5); LYMPHOCYTES % (AUTO) 22.6 % (13-45); MEAN CORPUSCULAR HEMOGLOBIN 31.9 pg (27.0-33.4); MEAN CORPUSCULAR HGB CONC 33.8 g/dL (32.0-36.0); MEAN CORPUSCULAR VOLUME 94 fl (80-97); MONOCYTES % (AUTO) 9.7 % (3-13); PLATELET COUNT 272 10^3/uL (150-450); RED BLOOD COUNT 3.23 10^6/uL (3.72-5.28); RED CELL DISTRIBUTION WIDTH 18.1 % (11.5-14.0); SEGMENTED NEUTROPHILS % (AUTO) 60.7 % (42-78); TOTAL CELLS COUNTED % (AUTO) 100 %; WHITE BLOOD COUNT 7.3 10^3/uL (4.0-10.5)
[2019-04-17 04:43] LABS: ANION GAP 9 (5-19); BLOOD UREA NITROGEN 19 mg/dL (7-20); CALCIUM 10.9 mg/dL (8.4-10.2); CARBON DIOXIDE 16 mmol/L (22-30); CHLORIDE 115 mmol/L (98-107); GLUCOSE 88 mg/dL (75-110); POTASSIUM 4.1 mmol/L (3.6-5.0)
[2019-04-17] MEDS: LEVOTHYROXINE SODIUM 0.075 MG TABLET PO SCH (05:13)
[2019-04-17] MEDS: LEVETIRACETAM XR 500 MG TAB.SR.24H PO SCH ×2 (09:55→21:12)
[2019-04-17] MEDS: LACTOBACILLUS ACIDOPHILUS 250 MG TAB PO SCH ×2 (09:56→17:32)
[2019-04-17] MEDS: ALLOPURINOL 100 MG TABLET PO SCH (09:56)
[2019-04-17] MEDS: MAGNESIUM OXIDE 400 MG TABLET PO SCH (09:57)
[2019-04-17] MEDS: METOPROLOL SUCCINATE 50 MG TAB.SR.24H PO SCH (09:57)
[2019-04-17] MEDS: LACOSAMIDE 100 MG TABLET PO SCH ×2 (09:57→21:11)
[2019-04-17] MEDS: APIXABAN 2.5 MG TABLET PO SCH ×2 (09:57→17:32)
[2019-04-17] MEDS: CLOTRIMAZOLE 1% CREAM 15 GM TP SCH (10:00)
[2019-04-17] MEDS: NYSTATIN TOPICAL POWDER 15 GM TP SCH (10:00)
[2019-04-17] MEDS: CEFTRIAXONE 1 GM/D5W RTU 1 GM/50 ML RTUPB IV SCH (20:35)
[2019-04-17] MEDS: GABAPENTIN 100 MG CAPSULE PO SCH (21:11)
[2019-04-17] MEDS: FERROUS SULFATE 325 MG TABLET PO SCH (21:11)
--- NOTE | 2019-04-17 21:35 | PDOC PROGRESS REPORT ---
Subjective Progress Note for:: 04/17/19 Subjective:: Patient seen by the bedside, she is more confused than usual, she has hypercalcemia, there is question of primary versus secondary hyperparathyroidism, nuclear medicine imaging of the parotid gland is ordered Reason For Visit: UTI,ACUTE RENAL FAILURE,HYPERCALECEMIA Physical Exam Vital Signs: Temp Pulse Resp BP Pulse Ox 98.1 F 84 19 132/73 H 100 04/17/19 19:38 04/17/19 19:38 04/17/19 19:38 04/17/19 19:38 04/17/19 19:38 Intake & Output 04/16/19 04/17/19 04/18/19 06:59 06:59 06:59 Intake Total 3595 2610 500 Output Total 1325 1325 550 Balance 2270 1285 -50 Weight 84.1 kg General appearance: PRESENT: no acute distress Eye exam: PRESENT: PERRLA Respiratory exam: PRESENT: clear to auscultation heidi Cardiovascular exam: PRESENT: +S1, +S2 GI/Abdominal exam: PRESENT: soft Neurological exam: PRESENT: alert Results Laboratory Results: 04/17/19 04:06 04/17/19 04:06 04/17/19 04/17/19 04:06 04:06 WBC 7.3 RBC 3.23 L Hgb 10.3 L Hct 30.5 L MCV 94 MCH 31.9 MCHC 33.8 RDW 18.1 H Plt Count 272 Seg Neutrophils % 60.7 Sodium 140.4 Potassium 4.1 Chloride 115 H Carbon Dioxide 16 L Anion Gap 9 BUN 19 Creatinine 1.14 Est GFR ( Amer) 56 L Glucose 88 Calcium 10.9 H 04/12/19 12:36 Blood Blood Culture - Final NO GROWTH IN 5 DAYS 04/12/19 10:45 Blood Blood Culture - Final NO GROWTH IN 5 DAYS 04/12/19 04/12/19 04/12/19 10:45 10:45 11:40 Creatine Kinase Cancelled 78 CK-MB (CK-2) Cancelled Troponin I Cancelled 04/12/19 11:40 Creatine Kinase CK-MB (CK-2) 0.28 Troponin I < 0.012 Impressions: Chest X-Ray 04/12/19 11:33 IMPRESSION: NO ACUTE RADIOGRAPHIC FINDING IN THE CHEST. Assessment & Plan - Diagnosis (1) Acute kidney injury Is this a current diagnosis for this admission?: Yes (2) Hyperkalemia Is this a current diagnosis for this admission?: Yes (3) Hypercalcemia Is this a current diagnosis for this admission?: Yes Plan: Other nuclear imaging parathyroid gland (4) Chronic kidney disease, stage 3 Is this a current diagnosis for this admission?: Yes (5) Urinary tract infection Qualifiers: Urinary tract infection type: site unspecified Hematuria presence: without hematuria Qualified Code(s): N39.0 - Urinary tract infection, site not specified Is this a current diagnosis for this admission?: Yes (6) Dementia Qualifiers: Dementia type: Alzheimer's disease Alzheimer's disease onset: late-onset Dementia behavioral disturbance: without behavioral disturbance Qualified Code(s): G30.1 - Alzheimer's disease with late onset; F02.80 - Dementia in other diseases classified elsewhere without behavioral disturbance Is this a current diagnosis for this admission?: Yes Plan: Start Aricept 5 mg p.o. daily - Time Time Spent with patient: 25-34 minutes
[2019-04-17] MEDS: DONEPEZIL HCL 5 MG TABLET PO SCH (22:32)
[2019-04-18] MEDS: NORMAL SALINE 1000 ML 1,000 ML IV PRN ×2 (01:50→13:56)
[2019-04-18] MEDS: LEVOTHYROXINE SODIUM 0.075 MG TABLET PO SCH (05:14)
[2019-04-18 07:09] LABS: ANION GAP 9 (5-19); BLOOD UREA NITROGEN 14 mg/dL (7-20); CALCIUM 11.2 mg/dL (8.4-10.2); CARBON DIOXIDE 16 mmol/L (22-30); CHLORIDE 116 mmol/L (98-107); GLUCOSE 80 mg/dL (75-110); POTASSIUM 4.5 mmol/L (3.6-5.0)
--- NOTE | 2019-04-18 09:32 | RADIOLOGY REPORT (SQ) ---
EXAM DESCRIPTION: NM PARATHYROID IMAGING COMPLETED DATE/TIME: 04/18/2019 9:14 am REASON FOR STUDY: primary hyperparathyroidism COMPARISON: None. RADIONUCLIDE AND DOSE: 21.3 millicuries Tc-99m Sestamibi. The route of agent administration: Intravenous ADDITIONAL DRUGS AND DOSES: None. TECHNIQUE: Early images of the neck acquired following radionuclide administration. LIMITATIONS: The patient was unable to extend her neck and portions of her head, including activity in the salivary glands, overlap the area of the thyroid. In addition, the patient refused delayed im aging and therefore washout versus retained activity could not be assessed. FINDINGS: Activity located on the right side of the neck. IMPRESSION: NONDIAGNOSTIC STUDY DUE TO FACTORS DESCRIBED ABOVE. TECHNICAL DOCUMENTATION: JOB ID: [id number] [employer]- All Rights Reserved Reading location - IP/workstation name: [email or web address]
[2019-04-18] MEDS: LACTOBACILLUS ACIDOPHILUS 250 MG TAB PO SCH ×2 (09:37→17:11)
[2019-04-18] MEDS: LEVETIRACETAM XR 500 MG TAB.SR.24H PO SCH ×2 (09:37→21:59)
[2019-04-18] MEDS: LACOSAMIDE 100 MG TABLET PO SCH ×2 (09:37→21:59)
[2019-04-18] MEDS: APIXABAN 2.5 MG TABLET PO SCH ×2 (09:37→17:11)
[2019-04-18] MEDS: MAGNESIUM OXIDE 400 MG TABLET PO SCH (09:37)
[2019-04-18] MEDS: ALLOPURINOL 100 MG TABLET PO SCH (09:37)
[2019-04-18] MEDS: CLOTRIMAZOLE 1% CREAM 15 GM TP SCH (09:37)
[2019-04-18] MEDS: NYSTATIN TOPICAL POWDER 15 GM TP SCH (09:38)
[2019-04-18] MEDS: METOPROLOL SUCCINATE 50 MG TAB.SR.24H PO SCH (09:39)
[2019-04-18] MEDS: DIPHENHYDRAMINE HCL 25 MG/10 ML UDC PO PRN (17:11)
[2019-04-18] MEDS: CEFTRIAXONE 1 GM/D5W RTU 1 GM/50 ML RTUPB IV SCH (20:08)
--- NOTE | 2019-04-18 20:39 | PDOC PROGRESS REPORT ---
Subjective Progress Note for:: 04/18/19 Subjective:: She was supposed to have parathyroid gland nuclear imaging but she did not cooperate for the procedure, this will be tried tomorrow Reason For Visit: UTI,ACUTE RENAL FAILURE,HYPERCALECEMIA Physical Exam Vital Signs: Temp Pulse Resp BP Pulse Ox 98.4 F 94 18 118/94 H 100 04/18/19 15:13 04/18/19 19:00 04/18/19 15:13 04/18/19 15:13 04/18/19 15:13 Intake & Output 04/17/19 04/18/19 04/19/19 06:59 06:59 06:59 Intake Total 2610 1550 1250 Output Total 1325 1725 475 Balance 1285 -175 775 Weight 84.1 kg 83.7 kg General appearance: PRESENT: no acute distress Eye exam: PRESENT: PERRLA Respiratory exam: PRESENT: clear to auscultation heidi Cardiovascular exam: PRESENT: +S1, +S2 GI/Abdominal exam: PRESENT: soft Neurological exam: PRESENT: alert Results Laboratory Results: 04/17/19 04:06 04/18/19 05:14 04/18/19 05:14 Sodium 141.0 Potassium 4.5 Chloride 116 H Carbon Dioxide 16 L Anion Gap 9 BUN 14 Creatinine 1.04 Est GFR ( Amer) > 60 Glucose 80 Calcium 11.2 H 04/12/19 04/12/19 04/12/19 10:45 10:45 11:40 Creatine Kinase Cancelled 78 CK-MB (CK-2) Cancelled Troponin I Cancelled 04/12/19 11:40 Creatine Kinase CK-MB (CK-2) 0.28 Troponin I < 0.012 Impressions: Chest X-Ray 04/12/19 11:33 IMPRESSION: NO ACUTE RADIOGRAPHIC FINDING IN THE CHEST. Parathyroid Scan Nuclear Medicine 04/17/19 00:00 IMPRESSION: NONDIAGNOSTIC STUDY DUE TO FACTORS DESCRIBED ABOVE. Assessment & Plan - Diagnosis (1) Acute kidney injury Is this a current diagnosis for this admission?: Yes (2) Hyperkalemia Is this a current diagnosis for this admission?: Yes (3) Hypercalcemia Is this a current diagnosis for this admission?: Yes (4) Chronic kidney disease, stage 3 Is this a current diagnosis for this admission?: Yes (5) Urinary tract infection Qualifiers: Urinary tract infection type: site unspecified Hematuria presence: without hematuria Qualified Code(s): N39.0 - Urinary tract infection, site not specified Is this a current diagnosis for this admission?: Yes (6) Dementia Qualifiers: Dementia type: Alzheimer's disease Alzheimer's disease onset: late-onset Dementia behavioral disturbance: without behavioral disturbance Qualified Cod e(s): G30.1 - Alzheimer's disease with late onset; F02.80 - Dementia in other diseases classified elsewhere without behavioral disturbance Is this a current diagnosis for this admission?: Yes - Time Time Spent with patient: 15-24 minutes - Plan Summary Plan Summary: Continue present treatment
[2019-04-18] MEDS: FERROUS SULFATE 325 MG TABLET PO SCH (21:59)
[2019-04-18] MEDS: DONEPEZIL HCL 5 MG TABLET PO SCH (21:59)
[2019-04-18] MEDS: GABAPENTIN 100 MG CAPSULE PO SCH (21:59)
[2019-04-19] MEDS: NORMAL SALINE 1000 ML 1,000 ML IV PRN (02:23)
[2019-04-19] MEDS: LEVOTHYROXINE SODIUM 0.075 MG TABLET PO SCH (05:14)
[2019-04-19 06:36] LABS: ANION GAP 10 (5-19); BLOOD UREA NITROGEN 10 mg/dL (7-20); CALCIUM 11.2 mg/dL (8.4-10.2); CARBON DIOXIDE 17 mmol/L (22-30); CHLORIDE 113 mmol/L (98-107); GLUCOSE 83 mg/dL (75-110); POTASSIUM 3.9 mmol/L (3.6-5.0)
[2019-04-19] MEDS ORDERED: DIAZEPAM 2 MG TABLET ONE (07:42)
[2019-04-19] MEDS ORDERED: DIAZEPAM 2 MG TABLET PO ONE (08:30)
[2019-04-19] MEDS: LEVETIRACETAM XR 500 MG TAB.SR.24H PO SCH (10:27)
[2019-04-19] MEDS: LACOSAMIDE 100 MG TABLET PO SCH (10:28)
[2019-04-19] MEDS: APIXABAN 2.5 MG TABLET PO SCH ×2 (10:28→18:34)
[2019-04-19] MEDS: LACTOBACILLUS ACIDOPHILUS 250 MG TAB PO SCH ×2 (10:28→18:33)
[2019-04-19] MEDS: METOPROLOL SUCCINATE 50 MG TAB.SR.24H PO SCH (10:28)
[2019-04-19] MEDS: ALLOPURINOL 100 MG TABLET PO SCH (10:28)
[2019-04-19] MEDS: MAGNESIUM OXIDE 400 MG TABLET PO SCH (10:28)
[2019-04-19] MEDS: NYSTATIN TOPICAL POWDER 15 GM TP SCH (10:36)
[2019-04-19] MEDS: CLOTRIMAZOLE 1% CREAM 15 GM TP SCH (10:36)
[2019-04-19] MEDS: DIPHENHYDRAMINE HCL 25 MG/10 ML UDC PO PRN (13:40)
--- NOTE | 2019-04-19 14:28 | PDOC TRANSFER SUMMARY ---
Impression - Admit/DC Date/PCP Admission Date/Primary Care Provider: 04/12/19 13:48 MARY RASHID MD Discharge Date: 04/19/19 - Discharge Diagnosis (1) Acute kidney injury Is this a current diagnosis for this admission?: Yes (2) Hyperkalemia Is this a current diagnosis for this admission?: Yes (3) Hypercalcemia Is this a current diagnosis for this admission?: Yes (4) Chronic kidney disease, stage 3 Is this a current diagnosis for this admission?: Yes (5) Urinary tract infection Is this a current diagnosis for this admission?: Yes (6) Dementia Is this a current diagnosis for this admission?: Yes (7) Secondary hyperparathyroidism Is this a current diagnosis for this admission?: Yes - Additional Information Resuscitation Status: Full Code Referrals: MARY RASHID MD [Primary Care Provider] - Follow up as needed Prescriptions: Donepezil HCl 10 mg PO DAILY #2000 tablet Calcitriol [Rocaltrol 0.25 mcg Capsule] 0.25 mcg PO DAILY #12054 capsule Home Medications: Allopurinol [Zyloprim 100 mg Tablet] 100 mg PO DAILY 02/20/19 Cholecalciferol (Vitamin D3) [Vitamin D3 1000 Unit Tablet] 2,000 unit PO DAILY 02/20/19 Ferrous Sulfate [Feosol 325 mg Tablet] 325 mg PO QHS 02/20/19 Gabapentin [Neurontin 100 mg Capsule] 200 mg PO QHS 02/20/19 L.acidoph/L.bulg/B.bif/S.therm [Bacid Caplet] 2 each PO BID 02/20/19 Lacosamide [Vimpat 100 mg Tablet] 100 mg PO Q12 02/20/19 Levothyroxine Sodium [Synthroid 0.075 mg Tablet] 0.075 mg PO Q6AM 02/20/19 Magnesium Oxide [Mag-Ox 400 mg Tablet] 400 mg PO DAILY 02/20/19 Metoprolol Succinate [Toprol Xl 50 mg Tab.sr] 50 mg PO DAILY 02/20/19 Apixaban [Eliquis 2.5 mg Tablet] 2.5 mg PO BID 04/12/19 Butenafine HCl [Lotrimin Ultra 1% Cream] 1 applic TP DAILY 04/12/19 Fluconazole [Diflucan] 150 mg PO SA@1000 PRN 04/12/19 Levetiracetam [Keppra] 1,000 mg PO Q12 04/12/19 Nystatin [Mycostatin Topical Powder 15 gm] 1 applic TP DAILY 04/12/19 Calcitriol [Rocaltrol 0.25 mcg Capsule] 0.25 mcg PO DAILY #47800 capsule 04/19/19 Donepezil HCl 10 mg PO DAILY #2000 tablet 04/19/19 History of Present Illiness History of Present Illness: IVY CLAIRE is a 78 year old female patient of Dr. Rashid and resident at [facility] who was presented to the ED due to reported increase twitching. Patient has history of partial seizure and occasional right sided twitching as per family. In recent days family noticed more than usual twitching, increase confusion, and less responsiveness. There was decrease oral intake of both food and water. Family was concern about possible urinary tract infection due to similar symptoms related to UTI in the patient. Her initial evaluation in the ED was significant for hyperkalemia, hypercalcemia, elevated BUN and creatinine suggestive of pre-renal azotemia, and abnormal urinalysis suggestive of possible infection. Her morbidities are stated below. She was advised hospitalization for further evaluation and management. Hospital Course Hospital Course: Patient was admitted for the management of UTI, acute kidney injury, metabolic encephalopathy, hypercalcemia, hyperkalemia. She was treated for the hyperkalemia hypercalcemia there was questionable primary hyperparathyroidism, a nuclear medicine parathyroid image was ordered, it was nondiagnostic because of patient was not cooperative with the procedure. She had UTI with episode of confusion in the hospital. She presently reside in the correction at [facility] she has secondary hyperparathyroidism, she is started on calcitriol low dose 0.25 MCG. The kidney function normalized suggesting a prerenal component. Physical Exam Vital Signs: Temp Pulse Resp BP Pulse Ox 98.9 F 97 18 93/48 L 100 04/19/19 11:39 04/19/19 11:39 04/19/19 11:39 04/19/19 11:39 04/19/19 11:39 Intake & Output 04/18/19 04/19/19 04/20/19 06:59 06:59 06:59 Intake Total 1550 2300 50 Output Total 1725 1400 300 Balance -175 900 -250 Weight 83.7 kg 85.5 kg General appearance: PRESENT: no acute distress Eye exam: PRESENT: PERRLA Respiratory exam: PRESENT: clear to auscultation heidi Cardiovascular exam: PRESENT: +S1, +S2 GI/Abdominal exam: PRESENT: soft Neurological exam: PRESENT: alert Results Laboratory Results: WBC 7.3 10^3/uL (4.0-10.5) 04/17/19 04:06 RBC 3.23 10^6/uL (3.72-5.28) L 04/17/19 04:06 Hgb 10.3 g/dL (12.0-15.5) L 04/17/19 04:06 Hct 30.5 % (36.0-47.0) L 04/17/19 04:06 MCV 94 fl (80-97) 04/17/19 04:06 MCH 31.9 pg (27.0-33.4) 04/17/19 04:06 MCHC 33.8 g/dL (32.0-36.0) 04/17/19 04:06 RDW 18.1 % (11.5-14.0) H 04/17/19 04:06 Plt Count 272 10^3/uL (150-450) 04/17/19 04:06 Lymph % (Auto) 22.6 % (13-45) 04/17/19 04:06 [place] % (Auto) 9.7 % (3-13) 04/17/19 04:06 Eos % (Auto) 6.3 % (0-6) H 04/17/19 04:06 Baso % (Auto) 0.7 % (0-2) 04/17/19 04:06 Absolute Neuts (auto) 4.5 10^3/uL (1.7-8.2) 04/17/19 04:06 Absolute Lymphs (auto) 1.7 10^3/uL (0.5-4.7) 04/17/19 04:06 Absolute Monos (auto) 0.7 10^3/uL (0.1-1.4) 04/17/19 04:06 Absolute Eos (auto) 0.5 10^3/uL (0.0-0.6) 04/17/19 04:06 Absolute Basos (auto) 0.1 10^3/uL (0.0-0.2) 04/17/19 04:06 Seg Neutrophils % 60.7 % (42-78) 04/17/19 04:06 Platelet Estimate Cancelled 04/12/19 10:45 VBG pH 7.31 (7.30-7.42) 04/12/19 11:40 VBG pCO2 45.0 mmHg (35-63) 04/12/19 11:40 VBG HCO3 21.9 mmol/L (20-32) 04/12/19 11:40 VBG Base Excess -4.5 mmol/L 04/12/19 11:40 Sodium 139.8 mmol/L (137-145) 04/19/19 05:41 Potassium 3.9 mmol/L (3.6-5.0) 04/19/19 05:41 Chloride 113 mmol/L (98-107) H 04/19/19 05:41 Carbon Dioxide 17 mmol/L (22-30) L 04/19/19 05:41 Anion Gap 10 (5-19) 04/19/19 05:41 BUN 10 mg/dL (7-20) 04/19/19 05:41 Creatinine 0.93 mg/dL (0.52-1.25) 04/19/19 05:41 Est GFR ( Amer) > 60 (>60) 04/19/19 05:41 Est GFR (Non-Af Amer) Cancelled 04/12/19 10:45 Est GFR (MDRD) Non-Af 58 (>60) L 04/19/19 05:41 Glucose 83 mg/dL (75-110) 04/19/19 05:41 Lactic Acid 1.5 mmol/L (0.7-2.1) 04/12/19 11:40 Calcium 11.2 mg/dL (8.4-10.2) H 04/19/19 05:41 Phosphorus 5.5 mg/dL (2.5-4.5) H 04/13/19 04:37 Magnesium 2.2 mg/dL (1.6-2.3) 04/13/19 04:37 Total Bilirubin 0.3 mg/dL (0.2-1.3) 04/14/19 23:33 Direct Bilirubin 0.3 mg/dL (0.0-0.4) 04/14/19 23:33 Neonat Total Bilirubin Not Reportable 04/14/19 23:33 Neonat Direct Bilirubin Not Reportable 04/14/19 23:33 Neonat Indirect Bili Not Reportable 04/14/19 23:33 AST 25 U/L (14-36) 04/14/19 23:33 ALT 16 U/L (<35) 04/14/19 23:33 Alkaline Phosphatase 57 U/L (38-126) 04/14/19 23:33 Creatine Kinase 78 U/L (30-135) 04/12/19 11:40 CK-MB (CK-2) 0.28 ng/mL (<4.55) 04/12/19 11:40 Troponin I < 0.012 ng/mL 04/12/19 11:40 Total Protein 7.6 g/dL (6.3-8.2) 04/14/19 23:33 Albumin 3.8 g/dL (3.5-5.0) 04/14/19 23:33 EGFR Cancelled 04/12/19 10:45 PTH Intact 74.1 pg/mL (10.0-65.0) H 04/13/19 21:14 Urine Color YELLOW 04/12/19 12:15 Urine Appearance CLOUDY 04/12/19 12:15 Urine pH 9.0 (5.0-9.0) 04/12/19 12:15 Ur Specific [place] 1.015 04/12/19 12:15 Urine Protein 100 mg/dL (NEGATIVE) H 04/12/19 12:15 Urine Glucose (UA) NEGATIVE mg/dL (NEGATIVE) 04/12/19 12:15 Urine Ketones NEGATIVE mg/dL (NEGATIVE) 04/12/19 12:15 Urine Blood NEGATIVE (NEGATIVE) 04/12/19 12:15 Urine Nitrite POSITIVE (NEGATIVE) H 04/12/19 12:15 Urine Bilirubin NEGATIVE (NEGATIVE) 04/12/19 12:15 Urine Urobilinogen NEGATIVE mg/dL (<2.0) 04/12/19 12:15 Ur Leukocyte Esterase LARGE (NEGATIVE) H 04/12/19 12:15 Urine WBC (Auto) >182 /HPF 04/12/19 12:15 Urine RBC (Auto) 8 /HPF 04/12/19 12:15 Urine Bacteria (Auto) 1+ /HPF 04/12/19 12:15 Urine WBC Clumps FEW /HPF 04/12/19 12:15 U Non-Squamous Epis Auto 1 /HPF 04/12/19 12:15 Urine Mucus (Auto) RARE /LPF 04/12/19 12:15 Urine Ascorbic Acid 20 (NEGATIVE) H 04/12/19 12:15 Slides for Path Review Cancelled 04/12/19 10:45 04/12/19 04/12/19 10:45 11:40 CK-MB (CK-2) Cancelled 0.28 Troponin I Cancelled < 0.012 Impressions: Chest X-Ray 04/12/19 11:33 IMPRESSION: NO ACUTE RADIOGRAPHIC FINDING IN THE CHEST. Parathyroid Scan Nuclear Medicine 04/17/19 00:00 IMPRESSION: NONDIAGNOSTIC STUDY DUE TO FACTORS DESCRIBED ABOVE. Stroke Is this a Stroke Patient?: No Acute Heart Failure - Is this a Heart Failure Patient?: No
[2019-04-19 19:38] VITALS: BP 143/65
== END 2019-04-19 19:39 | DRG 682 ==
LOC: ER 10:13 → EH 13:48 → 3W 21:30
PROVIDERS: ADMIT Internal Medicine; ATTEND Internal Medicine
PROC: 3E0234Z Introduction of Serum, Toxoid and Vaccine into Muscle, Percutaneous Approach (ICD-10-PCS; principal; 2019-04-13)
DX: N17.9 Acute kidney failure, unspecified (principal); G93.41 Metabolic encephalopathy; G40.109 Localization-related (focal) (partial) symptomatic epilepsy and epileptic syndromes with simple partial seizures, not intractable, without status epilepticus; N30.00 Acute cystitis without hematuria; E83.52 Hypercalcemia; E87.5 Hyperkalemia; N18.3 Chronic kidney disease, stage 3 (moderate); N25.81 Secondary hyperparathyroidism of renal origin; I12.9 Hypertensive chronic kidney disease with stage 1 through stage 4 chronic kidney disease, or unspecified chronic kidney disease; E03.9 Hypothyroidism, unspecified; M10.9 Gout, unspecified; F32.9 Major depressive disorder, single episode, unspecified; G30.1 Alzheimer's disease with late onset; F02.80 Dementia in other diseases classified elsewhere, unspecified severity, without behavioral disturbance, psychotic disturbance, mood disturbance, and anxiety; R62.7 Adult failure to thrive; E78.00 Pure hypercholesterolemia, unspecified; Z96.651 Presence of right artificial knee joint; D64.9 Anemia, unspecified; Z23 Encounter for immunization; Z86.711 Personal history of pulmonary embolism; Z79.899 Other long term (current) drug therapy; Z87.891 Personal history of nicotine dependence; Z88.8 Allergy status to other drugs, medicaments and biological substances
CPT/HCPCS: 36415; 51701; 51702; 71045; 78070; 80048; 80053; 81001; 82550; 82553; 82803; 83605; 83735; 83970; 84100; 84484; 85025; 87040; 87070; 87086; 87088; 87186; 93005; 93010; 96374; 96375; 99285; A9500; J0696; J1940; J3490; J7030; Q9969

== ENCOUNTER 2019-04-23 10:00 | Emergency (ER) | payer MEDICARE ==
[2019-04-23 11:19] LABS: ABSOLUTE EOSINOPHILS # (AUTO) 0.1 10^3/uL (0.0-0.6); ABSOLUTE LYMPHOCYTES (AUTO) 1.8 10^3/uL (0.5-4.7); ABSOLUTE MONOCYTES (AUTO) 0.5 10^3/uL (0.1-1.4); ABSOLUTE NEUT (AUTO) 5.5 10^3/uL (1.7-8.2); BASOPHILS % (AUTO) 0.5 % (0-2); EOSINOPHILS % (AUTO) 1.2 % (0-6); HEMATOCRIT 33.2 % (36.0-47.0); HEMOGLOBIN 11.3 g/dL (12.0-15.5); LYMPHOCYTES % (AUTO) 22.5 % (13-45); MEAN CORPUSCULAR HEMOGLOBIN 31.9 pg (27.0-33.4); MEAN CORPUSCULAR HGB CONC 33.9 g/dL (32.0-36.0); MEAN CORPUSCULAR VOLUME 94 fl (80-97); MONOCYTES % (AUTO) 6.6 % (3-13); PLATELET COUNT 327 10^3/uL (150-450); RED BLOOD COUNT 3.53 10^6/uL (3.72-5.28); RED CELL DISTRIBUTION WIDTH 18.1 % (11.5-14.0); SEGMENTED NEUTROPHILS % (AUTO) 69.2 % (42-78); TOTAL CELLS COUNTED % (AUTO) 100 %; WHITE BLOOD COUNT 7.9 10^3/uL (4.0-10.5)
[2019-04-23 11:21] LABS: APPEARANCE,URINE CLEAR; BILIRUBIN,URINE NEGATIVE (NEGATIVE); COLOR,URINE YELLOW; GLUCOSE, URINE NEGATIVE (NEGATIVE); KETONES,URINE NEGATIVE (NEGATIVE); LEUKOCYTE ESTERASE,URINE MODERATE (NEGATIVE); NITRITE,URINE NEGATIVE (NEGATIVE); PROTEIN,URINE 30 mg/dL (NEGATIVE); URINE SPECIFIC GRAVITY 1.015; UROBILINOGEN,URINE NEGATIVE mg/dL (<2.0)
[2019-04-23 11:23] LABS: ALBUMIN 3.3 g/dL (3.5-5.0); ALKALINE PHOSPHATASE 72 U/L (38-126); ANION GAP 7 (5-19); ASPARTATE AMINO TRANSFERASE 21 U/L (14-36); BILIRUBIN,DIRECT 0.3 mg/dL (0.0-0.4); BILIRUBIN,TOTAL 0.4 mg/dL (0.2-1.3); BLOOD UREA NITROGEN 12 mg/dL (7-20); CALCIUM 11.9 mg/dL (8.4-10.2); CARBON DIOXIDE 22 mmol/L (22-30); CHLORIDE 109 mmol/L (98-107); GLUCOSE 96 mg/dL (75-110); POTASSIUM 4.3 mmol/L (3.6-5.0); TOTAL PROTEIN 6.7 g/dL (6.3-8.2)
--- NOTE | 2019-04-23 13:13 | RADIOLOGY REPORT (SQ) ---
EXAM DESCRIPTION: CT HEAD WITHOUT COMPLETED DATE/TIME: 04/23/2019 12:42 pm REASON FOR STUDY: altered mental status, increased seizures COMPARISON: 2019 TECHNIQUE: Axial images acquired through the brain without intravenous contrast. Images reviewed wi th bone, brain and subdural windows. Additional sagittal and coronal reconstructions were generated. Images stored on PACS. All CT scanners at this facility use dose modulation, iterative reconstruction, and/or weight based d osing when appropriate to reduce radiation dose to as low as reasonably achievable (ALARA). [facility]: Dose Right [facility]: CareDose [facility]: Dose Right [facility]: Teradose 4D [facility]: [employer] RADIATION DOSE: CT Rad equipment meets quality standard of care and radiation dose reduction techniq ues were employed. CTDIvol: 53.2 mGy. DLP: 911 mGy-cm. mGy. LIMITATIONS: None. FINDINGS: VENTRICLES: Minimally prominent, likely atrophy. Chronic appearance without intraventricu lar hemorrhage. CEREBRUM: No masses. No hemorrhage. No midline shift. No evidence for acute infarction. Normal gra y/white matter differentiation. No areas of low density in the white matter. CEREBELLUM: No masses. No hemorrhage. No alteration of density. No evidence for acute infarction. EXTRAAXIAL SPACES: No fluid collections. No masses. ORBITS AND GLOBE: No intra- or extraconal masses. Normal contour of globe without masses. CALVARIUM: No fracture. PARANASAL SINUSES: No fluid or mucosal thickening. SOFT TISSUES: No mass or hematoma. OTHER: No other significant finding. IMPRESSION: No acute intracranial abnormality. Stable appearance of the brain. EVIDENCE OF ACUTE STROKE: NO. COMMENT: Quality ID # [id number]: Final reports with documentation of one or more dose reduction techniques (e.g., Automated exposure control, adjustment of the mA and/or kV according to patient size, use of iterative reconstruction technique) TECHNICAL DOCUMENTATION: JOB ID: [id number] [employer]- All Rights Reserved Reading location - IP/workstation name: [email or web address]
[2019-04-23] MEDS ORDERED: CEFTRIAXONE 1 GM/D5W RTU 1 GM/50 ML RTUPB IV ONE (13:30)
[2019-04-23] MEDS ORDERED: NORMAL SALINE 1000 ML 1,000 ML IV ONE (14:38)
--- NOTE | 2019-04-23 14:47 | ER Document Report ---
ED General - General Chief Complaint: General Weakness Stated Complaint: ALTERED MENTAL STATUS Time Seen by Provider: 04/23/19 10:52 Primary Care Provider: MARY RASHID MD [Primary Care Provider] - Follow up as needed TRAVEL OUTSIDE OF THE [place] IN LAST 30 DAYS: No - HPI Notes: Patient is a 78-year-old female brought into the emergency department for evaluation. She is currently staying at [facility]. She was recently discharged in the hospital, was treated for urinary tract infection. According to [facility], as well as family, she just does not seem to be acting herself. They are concerned that she has had increasing tremors, they are concerned about the possibility of increased seizure activity. She is been taking her medications as prescribed. No fevers or chills. No nausea or vomiting. Taking her medications as prescribed. The patient herself is a difficult historian, but denies any pain or problems at this time. - Related Data Allergies/Adverse Reactions: steroids Adverse Reaction (Intermediate, Uncoded 04/23/19 11:12) Home Medications: List from [facility] reviewed, please see chart Past Medical History - General Information source: Patient, Relative, Outside Facility Records - Social History Smoking Status: Never Smoker Family History: Reviewed & Not Pertinent Patient has suicidal ideation: No Patient has homicidal ideation: No - Past Medical History Cardiac Medical History: Reports: Hx Hypercholesterolemia, Hx Hypertension, Hx Pulmonary Embolism - 2 blood clots in her lungs a few years ago Denies: Hx Atrial Fibrillation, Hx Congestive Heart Failure, Hx Coronary Artery Disease, Hx Heart Attack, Hx Peripheral Vascular Disease, Hx Heart Murmur Pulmonary Medical History: Reports: Hx Bronchitis Denies: Hx Asthma, Hx COPD, Hx Pneumonia, Hx Respiratory Failure, Hx Sleep Apnea, Hx Tuberculosis Neurological Medical History: Reports: Hx Cerebrovascular Accident - About a year ago., Hx Seizures - UNSURE Endocrine Medical History: Reports: Hx Hypothyroidism Renal/ Medical History: Reports: Hx Renal Insufficiency. Denies: Hx End Stage Renal Disease, Hx Peritoneal Dialysis Malignancy Medical History: Denies: Hx Leukemia, Hx Lung Cancer GI Medical History: Denies: Hx Hepatitis, Hx Hiatal Hernia, Hx Ulcer Musculoskeletal Medical History: Reports Hx Arthritis, Denies Hx Fibromyalgia, Reports Hx Gout Psychiatric Medical History: Reports: Hx Dementia, Hx Depression Infectious Medical History: Denies: Hx Hepatitis, Hx HIV Past Surgical History: Reports: Hx Orthopedic Surgery - R knee replacement. Denies: Hx Appendectomy, Hx Section, Hx Cholecystectomy, Hx Coronary Artery Bypass Graft, Hx Gastric Bypass Surgery, Hx Herniorrhaphy, Hx Hysterectomy, Hx Mastectomy, Hx Open Heart Surgery, Hx Pacemaker, Hx Tonsillectomy, Hx Tubal Ligation - Immunizations Hx Diphtheria, Pertussis, Tetanus Vaccination: Yes - <5 years Hx Pneumococcal Vaccination: 04/12/08 Review of Systems - Review of Systems Constitutional: No symptoms reported EENT: No symptoms reported Cardiovascular: No symptoms reported Respiratory: No symptoms reported Gastrointestinal: No symptoms reported Genitourinary: See HPI Musculoskeletal: No symptoms reported Skin: No symptoms reported Neurological/Psychological: See HPI Physical Exam - Vital signs Vitals: Temp Pulse Resp BP Pulse Ox 98.5 F 95 16 133/87 H 95 04/23/19 10:04/23/19 10:04/23/19 10:04/23/19 10:04/23/19 10:01 - Notes Notes: This is a 78-year-old female who appears older than her stated age in acute distress. She is lying comfortably in the bed. She has intermittent tremors, primarily on the right side. She is awake and alert, interactive with examiner. Vital signs reviewed, please refer to chart. Head is normocephalic, atraumatic. Pupils equal round, reactive to light. Neck is supple without meningismus. Heart is regular rate and rhythm. Lungs are clear to auscultation bilaterally. Abdomen is soft, nontender, normoactive bowel sounds throughout. Extremities without cyanosis, clubbing. Posterior calves are nontender. Peripheral pulses are equal. Skin is warm and dry. Patient is awake, alert, disoriented to person, place, and time. She moves all 4 extremities spontaneously. No gross facial asymmetry. Sensation appears to be intact to all 4. Course - Re-evaluation Re-evalutation: 04/23/19 14:45 Patient presents to the emergency department for evaluation. She had laboratory investigations as ordered. Her urinalysis did reveal large white blood cells and leukocyte esterase, she was treated with Rocephin. I did review prior urine cultures and this was consistent with an appropriate treatment. She fails to show any significant leukocytosis. Her renal function is normal. No significant electrolyte abnormalities. Because of concern for possible continued seizure activity, I did order a CT scan of her head, as well as Keppra level. CT scan of her head failed to show any acute abnormality. Her Keppra level is still pending at this time. Patient is remained stable. Her heart rate remains 104, IV fluids have been ordered. I did review past echocar diogram, no signs of systolic heart failure noted on that evaluation. I spoke extensively to family. They state that she seems to do well while on IV fluids and antibiotics in the hospital, but they believe she is decompensating at [facility]. I will discuss this patient further with Dr. Rashid, phone call pending. 04/23/19 15:[address] Rashid in regards to this patient. He is very familiar with her. She is not having any further tremor. She has been stable. She is mildly tachycardic but this is not new. She was given IV fluids. We discussed disposition. He states that she has had waxing and waning mental status issues for some time. He believes it is appropriately worked up as an outpatient, and I tend to agree, is particularly given her status as a [facility] resident at this time. I will send her home with antibiotics and he will follow-up with her this week. She is to return to the ED with worsening or new concerning symptoms. Thought process and plan was shared with the family, and they are agreeable. - Vital Signs Vital signs: Temp Pulse Resp BP Pulse Ox 98.5 F 95 17 156/94 H 100 04/23/19 10:05 04/23/19 10:01 04/23/19 13:03 04/23/19 13:03 04/23/19 13:03 - Laboratory Result Diagrams: 04/23/19 10:24 04/23/19 10:24 Laboratory results interpreted by me: 04/23/19 04/23/19 04/23/19 10:24 10:24 10:50 RBC 3.53 L Hgb 11.3 L Hct 33.2 L RDW 18.1 H Chloride 109 H Calcium 11.9 H Albumin 3.3 L Urine Protein 30 H Urine Blood SMALL H Ur Leukocyte Esterase MODERATE H - Diagnostic Test Radiology reviewed: Reports reviewed Radiology results interpreted by me: 04/23/19 14:[address] 04/23/19 12:17 IMPRESSION: No acute intracranial abnormality. Stable appearance of the brain. EVIDENCE OF ACUTE STROKE: NO. Discharge - Discharge Clinical Impression: Altered mental status Qualifiers: Altered mental status type: transient alteration of awareness Qualified Code(s): R40.4 - Transient alteration of awareness Urinary tract infection Qualifiers: Urinary tract infection type: site unspecified Hematuria presence: without hematuria Qualified Code(s): N39.0 - Urinary tract infection, site not specified Condition: Stable Disposition: HOME, SELF-CARE Instructions: Urinary Tract Infection ([facility]), Trimethoprim-Sulfa ([facility]), Altered Mental Status ([facility]) Additional Instructions: Please take all the antibiotic as prescribed. Follow-up with primary care this week. Return to the emergency department with worsening or new concerning symptoms of any sort. Referrals: MARY RASHID MD [Primary Care Provider] - Follow up as needed
[2019-04-23 16:09] VITALS: BP 153/77
== END 2019-04-23 16:58 | disposition home or self-care (01) ==
LOC: ER 10:00
DX: N39.0 Urinary tract infection, site not specified (principal); R40.4 Transient alteration of awareness; R53.1 Weakness; E78.00 Pure hypercholesterolemia, unspecified; I10 Essential (primary) hypertension; Z87.440 Personal history of urinary (tract) infections; Z86.711 Personal history of pulmonary embolism; Z96.651 Presence of right artificial knee joint
CPT/HCPCS: 99285; 96360; 36415; 87040; 87086; 80177; 85025; 87088; 80053; 81001; 87186; 70450; J7030; J0696

== ENCOUNTER → 2019-08-26 | Outpatient (CLI) | payer MEDICARE, MEDICAID ==
[2019-08-26 14:53] LABS: HEMATOCRIT 31.9 % (36.0-47.0); HEMOGLOBIN 10.5 g/dL (12.0-15.5); MEAN CORPUSCULAR HGB CONC 32.8 g/dL (32.0-36.0); MEAN CORPUSCULAR VOLUME 92 fl (80-97); PLATELET COUNT 204 10^3/uL (150-450); RED BLOOD COUNT 3.49 10^6/uL (3.72-5.28); RED CELL DISTRIBUTION WIDTH 19.3 % (11.5-14.0)
[2019-08-26 15:00] LABS: APPEARANCE,URINE CLOUDY; BILIRUBIN,URINE NEGATIVE (NEGATIVE); COLOR,URINE YELLOW; GLUCOSE, URINE NEGATIVE (NEGATIVE); KETONES,URINE NEGATIVE (NEGATIVE); LEUKOCYTE ESTERASE,URINE LARGE (NEGATIVE); NITRITE,URINE NEGATIVE (NEGATIVE); PROTEIN,URINE 30 mg/dL (NEGATIVE); URINE SPECIFIC GRAVITY 1.012; UROBILINOGEN,URINE NEGATIVE mg/dL (<2.0)
== END ==
LOC: PNR 14:35
PROVIDERS: ATTEND Internal Medicine
DX: D50.0 Iron deficiency anemia secondary to blood loss (chronic) (principal); N39.0 Urinary tract infection, site not specified; E87.6 Hypokalemia; I12.9 Hypertensive chronic kidney disease with stage 1 through stage 4 chronic kidney disease, or unspecified chronic kidney disease; N18.3 Chronic kidney disease, stage 3 (moderate); G46.4 Cerebellar stroke syndrome; N17.9 Acute kidney failure, unspecified
CPT/HCPCS: 81001; 85027; 87086; 87088; 87186

== ENCOUNTER 2019-08-27 19:57 | Inpatient (IN) | payer MEDICARE, MEDICAID ==
[2019-08-27 20:47] LABS: ABSOLUTE BASOPHILS # (AUTO) 0.1 10^3/uL (0.0-0.2); ABSOLUTE EOSINOPHILS # (AUTO) 0.3 10^3/uL (0.0-0.6); ABSOLUTE LYMPHOCYTES (AUTO) 2.4 10^3/uL (0.5-4.7); ABSOLUTE MONOCYTES (AUTO) 0.7 10^3/uL (0.1-1.4); BASOPHILS % (AUTO) 1.2 % (0-2); EOSINOPHILS % (AUTO) 5.2 % (0-6); HEMATOCRIT 30.1 % (36.0-47.0); HEMOGLOBIN 10.2 g/dL (12.0-15.5); MEAN CORPUSCULAR HEMOGLOBIN 30.3 pg (27.0-33.4); MEAN CORPUSCULAR VOLUME 89 fl (80-97); MONOCYTES % (AUTO) 10.1 % (3-13); PLATELET COUNT 262 10^3/uL (150-450); RED BLOOD COUNT 3.38 10^6/uL (3.72-5.28); RED CELL DISTRIBUTION WIDTH 18.8 % (11.5-14.0); SEGMENTED NEUTROPHILS % (AUTO) 46.5 % (42-78); TOTAL CELLS COUNTED % (AUTO) 100 %; VENOUS BLOOD BASE EXCESS 2.9 mmol/L; VENOUS BLOOD HCO3 27.6 mmol/L (20-32); VENOUS BLOOD PCO2 42.8 mmHg (35-63); VENOUS BLOOD PH 7.43 (7.30-7.42); WHITE BLOOD COUNT 6.5 10^3/uL (4.0-10.5)
--- NOTE | 2019-08-27 20:54 | ER Document Report ---
ED General - General Chief Complaint: Tremors, kidney failure Stated Complaint: KIDNEY FAILURE Time Seen by Provider: 08/27/19 20:49 Primary Care Provider: MARY RASHID MD [Primary Care Provider] - Follow up as needed Mode of Arrival: Medic Information source: Transfer Record, Emergency Med Personnel, Outside Facility Records Cannot obtain history due to: Dementia TRAVEL OUTSIDE OF THE [place] IN LAST 30 DAYS: No - HPI Onset: Other - over the last several days Onset/Duration: Gradual Quality of pain: No pain Severity: Moderate Pain Level: Denies Associated symptoms: Weakness, Other - altered mental status, worsening chronic kidney disease Exacerbated by: Denies Relieved by: Denies Similar symptoms previously: No Recently seen / treated by doctor: Yes - patient has been seen by her PCP recently for chronic kidney disease Notes: 78 year old female with a history of Dementia, prior CVA, Seizures, CKD, HTN, HLD, PE, Hypothyroidism brought to the ER by EMS from her longterm due to concern of worsening kidney failure. The patient is unable to provide any history for me here in the ER. I am unsure if this is due to her dementia and previous stroke or if this is an acute change in her mental status. The patient has a G tube in placed which seems to be functioning normally on ER arrival. - Related Data Allergies/Adverse Reactions: steroids Adverse Reaction (Intermediate, Uncoded 08/27/19 21:19) Past Medical History - General Information source: Transfer Record, Emergency Med Personnel, Outside Facility Records Cannot obtain history due to: Dementia, Altered mental status - Social History Smoking Status: Never Smoker Frequency of alcohol use: None Drug Abuse: None Lives with: [facility] Family History: Reviewed & Not Pertinent - Past Medical History Cardiac Medical History: Reports: Hx Hypercholesterolemia, Hx Hypertension, Hx Pulmonary Embolism - 2 blood clots in her lungs a few years ago Denies: Hx Atrial Fibrillation, Hx Congestive Heart Failure, Hx Coronary Artery Disease, Hx Heart Attack, Hx Peripheral Vascular Disease, Hx Heart Murmur Pulmonary Medical History: Reports: Hx Bronchitis Denies: Hx Asthma, Hx COPD, Hx Pneumonia, Hx Respiratory Failure, Hx Sleep Apnea, Hx Tuberculosis Neurological Medical History: Reports: Hx Cerebrovascular Accident - About a year ago., Hx Seizures - UNSURE Endocrine Medical History: Reports: Hx Hypothyroidism Renal/ Medical History: Reports: Hx Renal Insufficiency. Denies: Hx End Stage Renal Disease, Hx Peritoneal Dialysis Malignancy Medical History: Denies: Hx Leukemia, Hx Lung Cancer GI Medical History: Denies: Hx Hepatitis, Hx Hiatal Hernia, Hx Ulcer Musculoskeletal Medical History: Reports Hx Arthritis, Denies Hx Fibromyalgia, Reports Hx Gout Psychiatric Medical History: Reports: Hx Dementia, Hx Depression Infectious Medical History: Denies: Hx Hepatitis, Hx HIV Past Surgical History: Reports: Hx Orthopedic Surgery - R knee replacement. Denies: Hx Appendectomy, Hx Section, Hx Cholecystectomy, Hx Coronary Artery Bypass Graft, Hx Gastric Bypass Surgery, Hx Herniorrhaphy, Hx Hyst erectomy, Hx Mastectomy, Hx Open Heart Surgery, Hx Pacemaker, Hx Tonsillectomy, Hx Tubal Ligation - Immunizations Hx Diphtheria, Pertussis, Tetanus Vaccination: Yes - <5 years Hx Pneumococcal Vaccination: 04/12/08 Review of Systems - Review of Systems -: Yes ROS unobtainable due to patient's medical condition - ROS obtained from EMS and nusing home staff Constitutional: Weakness, Other - apparent worsening chronic kidney disease EENT: No symptoms reported Cardiovascular: No symptoms reported Respiratory: No symptoms reported Gastrointestinal: Abdominal pain Genitourinary: No symptoms reported Female Genitourinary: No symptoms reported Musculoskeletal: No symptoms reported Skin: No symptoms reported Hematologic/Lymphatic: No symptoms reported Neurological/Psychological: Other - altered mental status -: Yes All other systems reviewed and negative Physical Exam - Vital signs Vitals: Resp 16 / 20:00 - Notes Notes: GENERAL: Chronicially ill appearing, well-nourished and in no acute distress. Unable to verbally converse with me. HEAD: Atraumatic, normocephalic. EYES: Pupils equal round and reactive to light, extraocular movements intact, sclera anicteric, conjunctiva are normal. ENT: External ears normal in appearance, nares patent, oropharynx clear without exudates. Moist mucous membranes. NECK: Normal range of motion, supple without lymphadenopathy or JVD. LUNGS: Breath sounds clear to auscultation bilaterally and equal. No wheezes rales or rhonchi. HEART: Tachycardic, normal rhythm without murmurs, rubs or gallops. ABDOMEN: G tube in place. Soft, moderate tenderness throughout, normoactive bowel sounds. No guarding, no rebound. No masses appreciated. EXTREMITIES: Normal range of motion, no pitting or edema. No clubbing or cyanosis. NEUROLOGICAL: Patient will not follow commands but responds to painful stimuli. Patient seems more or less nonverbal but will cry out with painful stimuli (such as when a cathed urine was obtained). PSYCH: Falt affect. SKIN: Warm, Dry, normal turgor, no rashes or lesions noted. Course - Re-evaluation Re-evalutation: 08/28/19 00:00 The patient was sent to the ER from her longterm due to acute on chronic renal failure. The patient is essentially nonverbal so she was unable to provide any history. Patient found to have a UTI. She has chronic UTIs and her last culture grew ESBL sensitive to Zosyn. Zosyn was therefore ordered this ER visit. Patient also has hyperkalemia due to her acute renal failure today. No peaked T waves present on EKG however. Dr. Chadwick consulted for admission and he will acce pt the patient to IMCU assuming her K comes down with treatment with fluids, kayexalate, sodium bicarb, calcium gluconate, insulin. Patient's urine clearly seems to be the source of infection but chest xray showed possible right sided infiltrate as well so Vanc was added as well. 08/28/19 00:29 The patient had a repeat BMP after treatment with fluids, kayexalate, sodium bicarb, calcium gluconate, and insulin/dextrose. Repeat labs show the K has come down but the patient's glucose dropped as well. Kidney function only slightly improved. Patient's lactic acid ricky. Elevation in lactic acid could be a combination of dehydration, patient's blood glucose dropping, and an infectious process. I ordered a 3rd L of normal saline and another amp of dextrose and I called Dr. Chadwick back who admitted the patient to [facility]. - Vital Signs Vital signs: Temp Pulse Resp BP Pulse Ox 98.3 F 27 H 100/54 L 97 08/27/19 20:03 08/27/19 23:36 08/27/19 23:36 08/27/19 23:31 - Laboratory Result Diagrams: 08/27/19 20:24 08/27/19 23:25 Laboratory results interpreted by me: 08/27/19 08/27/19 08/27/19 20:24 20:24 20:24 RBC 3.38 L Hgb 10.2 L Hct 30.1 L RDW 18.8 H VBG pH 7.43 H Sodium 128.3 L Potassium 6.2 H* Chloride 96 L Anion Gap 4 L BUN 95 H Creatinine 2.19 H Est GFR ( Amer) 26 L Est GFR (MDRD) Non-Af 22 L Glucose POC Glucose Lactic Acid Calcium 10.8 H Magnesium 2.4 H NT-Pro-B Natriuret Pep Total Protein 6.2 L Albumin 2.8 L Urine Blood Ur Leukocyte Esterase Urine Ascorbic Acid 08/27/19 08/27/19 08/27/19 20:24 20:24 20:50 RBC Hgb Hct RDW VBG pH Sodium Potassium Chloride Anion Gap BUN Creatinine Est GFR ( Amer) Est GFR (MDRD) Non-Af Glucose POC Glucose 139 H Lactic Acid Calcium Magnesium NT-Pro-B Natriuret Pep 6910 H Total Protein Albumin Urine Blood SMALL H Ur Leukocyte Esterase LARGE H Urine Ascorbic Acid 40 H 08/27/19 08/27/19 08/27/19 22:26 23:25 23:25 RBC Hgb Hct RDW VBG pH Sodium 133.3 L Potassium Chloride Anion Gap BUN 83 H Creatinine 1.85 H Est GFR ( Amer) 32 L Est GFR (MDRD) Non-Af 26 L Glucose 48 L POC Glucose 144 H Lactic Acid 2.7 H Calcium Magnesium NT-Pro-B Natriuret Pep Total Protein Albumin Urine Blood Ur Leukocyte Esterase Urine Ascorbic Acid - Diagnostic Test Radiology reviewed: Image reviewed, Reports reviewed - EKG Interpretation by Mt EKG shows normal: Sinus rhythm, Intervals, QRS Complexes Rate: Tachycardia Rhythm: NSR Additional EKG results interpreted by me: 08/27/19 21:40 q waves in inferior leads. T wave inversions in V4-V6 Critical Care Note - Critical Care Note Total time excluding time spent on procedures (mins): 40 Discharge - Discharge Clinical Impression: Hyperkalemia UTI (urinary tract infection) Qualifiers: Urinary tract infection type: acute cystitis Hematuria presence: with hematuria Qualified Code(s): N30.01 - Acute cystitis with hematuria Pneumonia Qualifiers: Pneumonia type: due to unspecified organism Laterality: right Lung location: unspecified part of lung Qualified Code(s): J18.9 - Pneumonia, unspecified organism Acute kidney failure Qualifiers: Acute renal failure type: unspecified Qualified Code(s): N17.9 - Acute kidney failure, unspecified Condition: Fair Disposition: ADMITTED INPATIENT Admitting Provider: [facility] Admitted: [facility] Referrals: MARY RASHID MD [Primary Care Provider] - Follow up as needed
[2019-08-27 20:56] LABS: INTERNATIONAL RATION (INR) 1.06; PROTHROMBIN TIME 13.8 SEC (11.4-15.4)
[2019-08-27 21:05] LABS: ALBUMIN 2.8 g/dL (3.5-5.0); ALKALINE PHOSPHATASE 93 U/L (38-126); APPEARANCE,URINE CLOUDY; ASPARTATE AMINO TRANSFERASE 21 U/L (14-36); BILIRUBIN,TOTAL 0.2 mg/dL (0.2-1.3); BILIRUBIN,URINE NEGATIVE (NEGATIVE); BLOOD UREA NITROGEN 95 mg/dL (7-20); CALCIUM 10.8 mg/dL (8.4-10.2); CARBON DIOXIDE 28 mmol/L (22-30); CHLORIDE 96 mmol/L (98-107); COLOR,URINE YELLOW; GLUCOSE 107 mg/dL (75-110); GLUCOSE, URINE NEGATIVE (NEGATIVE); KETONES,URINE NEGATIVE (NEGATIVE); LEUKOCYTE ESTERASE,URINE LARGE (NEGATIVE); NITRITE,URINE NEGATIVE (NEGATIVE); PROTEIN,URINE NEGATIVE (NEGATIVE); TOTAL PROTEIN 6.2 g/dL (6.3-8.2); UROBILINOGEN,URINE NEGATIVE mg/dL (<2.0)
[2019-08-27 21:07] LABS: ALCOHOL < 10 mg/dL (NONE DETECTED)
[2019-08-27] MEDS ORDERED: NORMAL SALINE 1000 ML 1,000 ML IV ONE ×2 (21:08→21:38)
[2019-08-27 21:10] LABS: POTASSIUM 6.2 mmol/L (3.6-5.0)
[2019-08-27 21:12] LABS: URINE AMPHETAMINES SCREEN NEGATIVE; URINE BARBITURATES SCREEN NEGATIVE; URINE BENZODIAZEPINES SCREEN NEGATIVE; URINE COCAINE SCREEN NEGATIVE; URINE MARIJUANA (THC) SCREEN NEGATIVE; URINE METHADONE SCREEN NEGATIVE; URINE PHENCYCLIDINE SCREEN NEGATIVE
[2019-08-27 21:13] LABS: ANION GAP 4 (5-19)
[2019-08-27] MEDS ORDERED: SODIUM BICARBONATE 8.4% INJ 50 MEQ/50 ML DISP.SYRIN IV ONE (21:26)
[2019-08-27] MEDS ORDERED: CALCIUM GLUCONATE 1000 MG/10 ML INJ IV ONE (21:26)
[2019-08-27] MEDS ORDERED: INSULIN REG, HUMAN 100 UNIT/ML 3 ML VIAL (PYX) IV ONE (21:27)
[2019-08-27] MEDS ORDERED: DEXTROSE 50%-WATER 25 GM/50 ML DISP.SYRIN IV ONE (21:27)
[2019-08-27] MEDS ORDERED: SODIUM POLYSTYRENE SULFONATE 15 GM/60 ML PO ONE (21:35)
[2019-08-27] MEDS ORDERED: PIPERACILLIN/TAZOBACTAM 3.375 GM VIAL IV ONE (21:38)
--- NOTE | 2019-08-27 22:21 | EKG REPORT ---
SEVERITY:- ABNORMAL ECG - SINUS TACHYCARDIA PROBABLE INFERIOR INFARCT, AGE INDETERMINATE POSSIBLY OLD : Confirmed by: Lianna Ramirez 27-Aug-2019 22:20:36
--- NOTE | 2019-08-27 22:33 | RADIOLOGY REPORT (SQ) ---
EXAM DESCRIPTION: CT HEAD WITHOUT IV CONTRAST COMPLETED DATE/TME: 08/27/2019 21:37 CLINICAL HISTORY: 78 years, Female, AMS COMPARISON: 04/23/2019 CT TECHNIQUE: 185 Images stored on PACS. All CT scanners at this facility use dose modulation, iterative reconstruction, and/or weight based dosing when appropriate to reduce radiation dose to as low as reasonably achievable (ALARA). [facility]: Dose Right [facility]: CareDose [facility]: Dose Right [facility]: Teradose 4D [facility]: [employer] LIMITATIONS: None. FINDINGS: The globes are intact. The paranasal sinuses and mastoid air cells are well aerated. No displaced or depressed skull fracture. No intra or extra-axial hemorrhage. CT is limited for evaluation of acute infarct. No CT evidence for large or territorial acute infarct. Age-appropriate atrophy with minor small vessel ischemic change. No mass. No midline shift IMPRESSION: Age-appropriate atrophy and small vessel ischemic change TECHNICAL DOCUMENTATION: Quality ID # 436: Final reports with documentation of one or more dose reduction techniques (e.g., Automated exposure control, adjustment of the mA and/or kV according to patient size, use of iterative reconstruction technique) copyright 2011 [employer]- All Rights Reserved
--- NOTE | 2019-08-27 22:58 | RADIOLOGY REPORT (SQ) ---
EXAM DESCRIPTION: XR CHEST 1 VIEW COMPLETED DATE/TME: 08/27/2019 22:27 CLINICAL HISTORY: 78 years, Female, eval for pulmonary edema COMPARISON: 04/12/2019 chest NUMBER OF VIEWS: 1 TECHNIQUE: Portable chest LIMITATIONS: None. FINDINGS: The heart size is normal. Atheromatous change thoracic aorta. Subsegmental atelectasis left lung base. A somewhat nodular right perihilar airspace opacity could reflect pneumonia. Close follow-up is recommended following appropriate therapy. Low lung volumes. Osteopenia IMPRESSION: Nodular right perihilar airspace opacity may reflect pneumonia however follow-up is recommended. copyright 2010 [employer]- All Rights Reserved
[2019-08-27] MEDS ORDERED: VANCOMYCIN HCL INJ 1000 MG VIAL IV ONE (23:43)
[2019-08-28 00:08] LABS: BLOOD UREA NITROGEN 83 mg/dL (7-20); CALCIUM 9.8 mg/dL (8.4-10.2); CARBON DIOXIDE 24 mmol/L (22-30)
[2019-08-28 00:13] LABS: ANION GAP 5 (5-19); CHLORIDE 104 mmol/L (98-107)
[2019-08-28 00:22] LABS: GLUCOSE 48 mg/dL (75-110)
[2019-08-28] MEDS ORDERED: DEXTROSE 50%-WATER 25 GM/50 ML DISP.SYRIN IV ONE (00:22)
[2019-08-28 00:23] LABS: POTASSIUM 4.6 mmol/L (3.6-5.0)
[2019-08-28] MEDS ORDERED: NORMAL SALINE 1000 ML 1,000 ML IV ONE (00:25)
[2019-08-28] MEDS ORDERED: ACETAMINOPHEN 325 MG TABLET PO PRN ×2 (00:29→20:13)
[2019-08-28] MEDS ORDERED: DEXTROSE 40% GEL 15 GM TUBE PO PRN ×2 (00:44)
[2019-08-28] MEDS ORDERED: GLUCAGON,HUMAN RECOMB 1 MG INJ IM PRN (00:44)
[2019-08-28] MEDS ORDERED: DEXTROSE 50%-WATER 25 GM/50 ML DISP.SYRIN IV PRN ×2 (00:44)
[2019-08-28] MEDS ORDERED: PIPERACILLIN/TAZOBACTAM 3.375 GM VIAL IV PRN (00:44)
[2019-08-28 03:13] LABS: ANION GAP 5 (5-19); BLOOD UREA NITROGEN 76 mg/dL (7-20); CALCIUM 9.8 mg/dL (8.4-10.2); CARBON DIOXIDE 23 mmol/L (22-30); CHLORIDE 105 mmol/L (98-107); GLUCOSE 162 mg/dL (75-110); POTASSIUM 4.7 mmol/L (3.6-5.0)
[2019-08-28] MEDS: NORMAL SALINE 1000 ML 1,000 ML IV PRN ×2 (03:33→13:44)
[2019-08-28] MEDS: PIPERACILLIN SODIUM/TAZOBACTAM 3.375 GM in NORMAL SALINE 100 ML IV SCH ×3 (05:37→17:22)
[2019-08-28] MEDS ORDERED: LEVOTHYROXINE SODIUM 0.075 MG TABLET PEG SCH (06:00)
[2019-08-28] MEDS: LEVETIRACETAM ORAL SOLN 500 MG/5 ML UDCUP PEG SCH ×2 (09:55→17:22)
[2019-08-28] MEDS: APIXABAN 5 MG TABLET PEG SCH ×2 (09:55→17:22)
[2019-08-28] MEDS: CINACALCET HCL 30 MG TABLET PO SCH ×2 (09:56→17:22)
[2019-08-28] MEDS ORDERED: GABAPENTIN 100 MG CAPSULE PEG SCH (10:00)
[2019-08-28] MEDS ORDERED: ASPIRIN 81 MG TABLET, CHEWABLE PEG SCH (10:00)
[2019-08-28] MEDS ORDERED: FAMOTIDINE INJ/PF 20 MG/2 ML SDV IV SCH (10:00)
[2019-08-28] MEDS ORDERED: ALLOPURINOL 100 MG TABLET PEG SCH (10:00)
[2019-08-28] MEDS ORDERED: LACOSAMIDE 100 MG TABLET PEG SCH (10:00)
--- NOTE | 2019-08-28 12:19 | PDOC CONSULTATION ---
Consultation Consult Date: 08/28/19 Provider Consulted: STEPHEN WESTBROOK Consult reason:: LIANET History of Present Illness Admission Date/PCP: 08/28/19 00:53 MARY RASHID MD History of Present Illness: IVY CLAIRE is a 78 year old -[place] female with history of dementia, prior CVA, seizures, chronic kidney disease, hypertension, hyperlipidemia, hypothyroidism and pulmonary embolism who [facility] because of concern regarding worsening renal failure. Patient appears to have an advanced dementia and really does not give any history at all almost nonverbal and does not answer questions. Initial evaluation in the emergency room showed urinalysis consistent with urinary tract infection. Blood cultures are pending with urine culture was not collected yet. Apparently in the past she has grown ESBL and so she was started on Zosyn. CT of the head was negative for any acute changes. Her chest x-ray also showed nodular right perihilar opacity which could possibly be pneumonia. She was also given a dose of vancomycin 2 g IV x1 dose in the emergency room. In terms of the kidney function she came in with a BUN of 95, creatinine of 2.19 with EGFR of 26 associated with potassium elevated at 6.2 and calcium of 10.8. Patient was given 3 L of IV fluids in the emergency room. She was also given medications for the hyperkalemia including Kayexalate, sodium bicarbonate and calcium gluconate with insulin and dextrose as well. Her potassium went down to 4.6. Her blood pressure C appears to be acceptable but t he lowest blood pressure yesterday was 93/48. Patient is unable to give any further history with regards to kidney disease. But from records it looks like her baseline creatinine usually ranges in 0.9- 1.14 with EGFR greater than 60. It appears that she also has had episodes of acute kidney injury in the past. Today she has a BUN of 76, creatinine 1.79 with EGFR of 33. Her potassium is 4.7. Urine output is unfortunately not being quantified. Past Medical History Cardiac Medical History: Reports: Hyperlipidemia, Hypertension-primary, Pulmonary Embolism - 2 blood clots in her lungs a few years ago Pulmonary Medical History: Reports: Bronchitis Neurological Medical History: Reports: Ischemic CVA, Seizures - UNSURE Endocrine Medical History: Reports: Hypothyroidism Renal/ Medical History: Reports: Chronic Kidney Disease Stage II Musculoskeltal Medical History: Reports: Arthritis, Gout Psychiatric Medical History: Reports: Dementia, Depression Hematology Medical History: Reports Anemia Past Surgical History Past Surgical History: Reports: Orthopedic Surgery - R knee replacement Social History Information Source: [facility] Records Lives with: [facility] Smoking Status: Never Smoker Frequency of Alcohol Use: None Hx Recreational Drug Use: No Drugs: None Hx Prescription Drug Abuse: No Family History Family History: Unable to obtain due to the patient's advanced dementia. Parental Family History Reviewed: No Children Family History Reviewed: Unknown Sibling(s) Family History Reviewed.: Unknown Medication/Allergy Home Medications: Allopurinol [Zyloprim 100 mg Tablet] 100 mg PEG DAILY 08/27/19 Cholecalciferol (Vitamin D3) [Vitamin D3 1000 Unit Tablet] 2,000 unit PEG DAILY 08/27/19 Ferrous Sulfate [Feosol 325 mg Tablet] 325 mg PEG QHS 08/27/19 Gabapentin [Neurontin 100 mg Capsule] 200 mg PEG QHS 08/27/19 Lacosamide [Vimpat 100 mg Tablet] 100 mg PEG Q12 08/27/19 Levothyroxine Sodium [Synthroid 0.075 mg Tablet] 0.075 mg PEG DAILY 08/27/19 Acetaminophen [Tylenol] 650 mg PO Q6HP PRN 08/28/19 Apixaban [Eliquis 2.5 mg Tablet] 2.5 mg PO BID 08/28/19 Calcitriol [Rocaltrol 0.25 Mcg Capsule] 1 cap PO DAILY 08/28/19 Clotrimazole [Lotrimin AF] 1 applic TP DAILY 08/28/19 Diphenhydramine HCl [Benadryl] 25 mg PO Q6HP PRN 08/28/19 Donepezil HCl 10 mg PO QHS 08/28/19 L.acidoph/L.bulg/B.bif/S.therm [Bacid Caplet] 2 tab PO BID 08/28/19 Levetiracetam 1,000 mg PO BID 08/28/19 Magnesium Oxide [Mag-Ox 400 mg Tablet] 400 mg PO QAM 08/28/19 Metoprolol Succinate [Toprol Xl 50 mg Tab.sr] 50 mg PO DAILY 08/28/19 Mirtazapine 30 mg PO QHS 08/28/19 Nystatin [Mycostatin Topical Powder 15 gm] 1 applic TP QAM 08/28/19 Ondansetron HCl/Pf [Zofran Inj/Pf 4 mg/2 ml Sdv] 4 mg IM Q6HP PRN 08/28/19 Pantoprazole Sodium 40 mg PO [facility] 08/28/19 Allergies/Adverse Reactions: steroids Adverse Reaction (Intermediate, Uncoded 08/27/19 21:19) Review of Systems ROS unobtainable: Due to mental status Physical Exam Vital Signs: Temp Pulse Resp BP Pulse Ox 97.6 F 97 17 133/85 H 100 08/28/19 07:56 08/28/19 07:56 08/28/19 07:56 08/28/19 07:56 08/28/19 07:56 Intake & Output 08/27/19 08/28/19 08/29/19 06:59 06:59 06:59 Intake Total 3100 Balance 3100 Weight 77.4 kg Exam: General appearance: No acute distress, cooperative, fairly developed and fairly nourished Head exam: PRESENT: atraumatic, normocephalic Eye exam: PRESENT: Conjunctiva slightly pale, EOMI, PERRLA. ABSENT: conjunctival injection, scleral icterus Mouth exam: PRESENT: moist, neck supple, tongue midline Neck exam: PRESENT: full ROM. ABSENT: carotid bruit, JVD, lymphadenopathy, thyromegaly Respiratory exam: PRESENT: Diminished to auscultation bilaterally. ABSENT: rales, rhonchi, stridor, wheezes Cardiovascular exam: PRESENT: RRR, +S1, +S2. ABSENT: systolic murmur Pulses: PRESENT: normal radial pulses, normal dorsalis pedis pulses GI/Abdominal exam: PRESENT: normal bowel sounds, soft. ABSENT: guarding, mass, tenderness Rectal exam: Deferred Extremities exam: PRESENT: full ROM. ABSENT: calf tenderness, pedal edema Musculoskeletal: PRESENT: full ROM. ABSENT: deformity Neurological exam: PRESENT: alert, Awake, Oriented to person only and not to place and time,, reflexes normal, CN II-XII grossly intact. She has this repetitive facial twitching involving her right thigh and mouth reportedly chronic by her nurse who has previously taken care to for previously. ABSENT: motor sensory deficit Psychiatric exam: PRESENT: appropriate affect, normal mood. ABSENT: homicidal ideation, suicidal ideation Skin exam: PRESENT: intact, dry, warm. ABSENT: rash Results Laboratory Results: 08/27/19 20:24 08/28/19 02:48 08/27/19 08/27/19 08/27/19 20:24 20:24 20:24 WBC 6.5 RBC 3.38 L Hgb 10.2 L Hct 30.1 L MCV 89 MCH 30.3 MCHC 34.0 RDW 18.8 H Plt Count 262 Seg Neutrophils % 46.5 VBG pH 7.43 H VBG pCO2 42.8 VBG HCO3 27.6 VBG Base Excess 2.9 Sodium 128.3 L Potassium 6.2 H* Chloride 96 L Carbon Dioxide 28 Anion Gap 4 L BUN 95 H Creatinine 2.19 H Est GFR ( Amer) 26 L Glucose 107 Lactic Acid Calcium 10.8 H Magnesium 2.4 H Total Bilirubin 0.2 AST 21 Alkaline Phosphatase 93 Total Protein 6.2 L Albumin 2.8 L Urine Color Urine Appearance Urine pH Ur Specific [place] Urine Protein Urine Glucose (UA) Urine Ketones Urine Blood Urine Nitrite Ur Leukocyte Esterase Urine WBC (Auto) Urine RBC (Auto) 08/27/19 08/27/19 08/27/19 20:24 20:24 23:25 WBC RBC Hgb Hct MCV MCH MCHC RDW Plt Count Seg Neutrophils % VBG pH VBG pCO2 VBG HCO3 VBG Base Excess Sodium Potassium Chloride Carbon Dioxide Anion Gap BUN Creatinine Est GFR ( Amer) Glucose Lactic Acid 1.4 2.7 H Calcium Magnesium Total Bilirubin AST Alkaline Phosphatase Total Protein Albumin Urine Color YELLOW Urine Appearance CLOUDY Urine pH 6.0 Ur Specific [place] 1.010 Urine Protein NEGATIVE Urine Glucose (UA) NEGATIVE Urine Ketones NEGATIVE Urine Blood SMALL H Urine Nitrite NEGATIVE Ur Leukocyte Esterase LARGE H Urine WBC (Auto) >182 Urine RBC (Auto) 23 08/27/19 08/28/19 08/28/19 23:25 02:48 02:48 WBC RBC Hgb Hct MCV MCH MCHC RDW Plt Count Seg Neutrophils % VBG pH VBG pCO2 VBG HCO3 VBG Base Excess Sodium 133.3 L 133.4 L Potassium 4.6 D 4.7 Chloride 104 105 Carbon Dioxide 24 23 Anion Gap 5 5 BUN 83 H 76 H Creatinine 1.85 H 1.79 H Est GFR ( Amer) 32 L 33 L Glucose 48 L 162 H Lactic Acid 2.0 Calcium 9.8 9.8 Magnesium Total Bilirubin AST Alkaline Phosphatase Total Protein Albumin Urine Color Urine Appearance Urine pH Ur Specific [place] Urine Protein Urine Glucose (UA) Urine Ketones Urine Blood Urine Nitrite Ur Leukocyte Esterase Urine WBC (Auto) Urine RBC (Auto) 08/27/19 08/27/19 20:24 20:24 Troponin I 0.028 NT-Pro-B Natriuret Pep 6910 H Impressions: Head CT 08/27/19 21:37 IMPRESSION: Age-appropriate atrophy and small vessel ischemic change TECHNICAL DOCUMENTATION: Quality ID # 436: Final reports with documentation of one or more dose reduction techniques (e.g., Automated exposure control, adjustment of the mA and/or kV according to patient size, use of iterative reconstruction technique) copyright 2010 [employer]- All Rights Reserved Chest X-Ray 08/27/19 22:27 IMPRESSION: Nodular right perihilar airspace opacity may reflect pneumonia however follow-up is recommended. copyright 2010 [employer]- All Rights Reserved Assessment & Plan - Diagnosis (1) Acute kidney injury Is this a current diagnosis for this admission?: Yes Plan: Urine output is not being quantified. This is most likely secondary to acute prerenal azotemia secondary to volume depletion in relation to current infection. Kidney function is now slowly improving with just IV fluid hydration and IV antibiotics. Continue current management with IV fluids and continue to monitor kidney function. Avoid nephrotoxic medications. Patient presented with hyperkalemia which is now currently resolved. I think patient's baseline kidney function is age-appropriate with creatinine anywhere between 0.9-1.14. No associated proteinuria and the small microhematuria is most likely secondary to UTI. (2) Urinary tract infection Qualifiers: Urinary tract infection type: acute cystitis Hematuria presence: with hematuria Qualified Code(s): N30.01 - Acute cystitis with hematuria Is this a current diagnosis for this admission?: Yes Plan: On IV Zosyn due to history of ESBL. Try to get urine culture. (3) Pneumonia Qualifiers: Pneumonia type: due to unspecified organism Laterality: right Lung location: unspecified part of lung Qualified Code(s): J18.9 - Pneumonia, unspecified organism Is this a current diagnosis for this admission?: Yes Plan: IV Zosyn should cover this. (4) Hypertension Qualifiers: Hypertension type: essential hypertension Qualified Code(s): I10 - Essential (primary) hypertension (5) Facial twitching Is this a current diagnosis for this admission?: Yes Plan: Apparently chronic. (6) Dementia Qualifiers: Dementia type: Alzheimer's disease Alzheimer's disease onset: late-onset Dementia behavioral disturbance: without behavioral disturbance Qualified Code(s): G30.1 - Alzheimer's disease with late onset; F02.80 - Dementia in other diseases classified elsewhere without behavioral disturbance Is this a current diagnosis for this admission?: Yes - Notes Notes: Thank you very much for this consultation. We will follow patient with you. - Time Time Spent: 50 to 70 Minutes
--- NOTE | 2019-08-28 19:49 | PDOC H&P ---
History of Present Illness Admission Date/PCP: 08/28/19 00:53 MARY RASHID MD History of Present Illness: IVY CLAIRE is a 78 year old female, Very unfortunate nice female that I have been following for many years, she has progressive dementia, prior CVA, seizure disorder, cerebellar infarct, chronic kidney disease stage III, hypertension, pulmonary embolism. Patient dementia as progressively gotten worse, she does not communicate reasonably well any longer, she also is not eating, family decided to initiate a PEG tube. She had blood work done in the [facility], the blood work demonstrated serum creatinine 2.19, BUN 95, serum potassium 6.2 because of this abnormal lab data I call the [facility] to advised the patient to be transferred to the hospital. Patient's granddaughter does not seem to understand the gravity of patient's disease, I could not get any history from this patient, she is very confused.I have had family conference with patient's son and daughter about the natural history of dementia, I explained to them that is a progressive disease there is no disease modifying medication yet available, patient's condition will progress and it is not because of inadequate care but unfortunately is the nature of the disease process Past Medical History Cardiac Medical History: Reports: Hyperlipidema, Hypertension, Pulmonary Embolism - 2 blood clots in her lungs a few years ago Pulmonary Medical History: Reports: Bronchitis Neurological Medical History: Reports: Ischemic CVA, Seizures - UNSURE Endocrine Medical History: Reports: Hypothyroidism Renal/ Medical History: Reports: Other - Chronic kidney disease stage III Musculoskeltal Medical History: Reports: Arthritis, Gout Psychiatric Medical History: Reports: Dementia, Depression Hematology: Reports: Anemia Past Surgical History Past Surgical History: Reports: Orthopedic Surgery - R knee replacement Social History Lives with: [facility] Smoking Status: Never Smoker Frequency of Alcohol Use: None Hx Recreational Drug Use: No Drugs: None Hx Prescription Drug Abuse: No Family History Family History: Reviewed & Not Pertinent, Arthritis Parental Family History Reviewed: Yes Children Family History Reviewed: Yes Sibling(s) Family History Reviewed.: Yes Medication/Allergy Home Medications: Allopurinol [Zyloprim 100 mg Tablet] 100 mg PEG DAILY 08/27/19 Cholecalciferol (Vitamin D3) [Vitamin D3 1000 Unit Tablet] 2,000 unit PEG DAILY 08/27/19 Ferrous Sulfate [Feosol 325 mg Tablet] 325 mg PEG QHS 08/27/19 Gabapentin [Neurontin 100 mg Capsule] 200 mg PEG QHS 08/27/19 Lacosamide [Vimpat 100 mg Tablet] 100 mg PEG Q12 08/27/19 Levothyroxine Sodium [Synthroid 0.075 mg Tablet] 0.075 mg PEG DAILY 08/27/19 Acetaminophen [Tylenol] 650 mg PO Q6HP PRN 08/28/19 Apixaban [Eliquis 2.5 mg Tablet] 2.5 mg PO BID 08/28/19 Calcitriol [Rocaltrol 0.25 Mcg Capsule] 1 cap PO DAILY 08/28/19 Clotrimazole [Lotrimin AF] 1 applic TP DAILY 08/28/19 Diphenhydramine HCl [Benadryl] 25 mg PO Q6HP PRN 08/28/19 Donepezil HCl 10 mg PO QHS 08/28/19 L.acidoph/L.bulg/B.bif/S.therm [Bacid Caplet] 2 tab PO BID 08/28/19 Levetiracetam 1,000 mg PO BID 08/28/19 Magnesium Oxide [Mag-Ox 400 mg Tablet] 400 mg PO QAM 08/28/19 Metoprolol Succinate [Toprol Xl 50 mg Tab.sr] 50 mg PO DAILY 08/28/19 Mirtazapine 30 mg PO QHS 08/28/19 Nystatin [Mycostatin Topical Powder 15 gm] 1 applic TP QAM 08/28/19 Ondansetron HCl/Pf [Zofran Inj/Pf 4 mg/2 ml Sdv] 4 mg IM Q6HP PRN 08/28/19 Pantoprazole Sodium 40 mg PO QAM 08/28/19 Allergies/Adverse Reactions: steroids Adverse Reaction (Intermediate, Uncoded 08/27/19 21:19) Review of Systems ROS unobtainable: Due to mental status Physical Exam Vital Signs: Temp Pulse Resp BP Pulse Ox 97.6 F 96 15 115/60 100 08/28/19 16:00 08/28/19 16:00 08/28/19 16:00 08/28/19 16:00 08/28/19 16:00 Intake & Output 08/27/19 08/28/19 08/29/19 06:59 06:59 06:59 Intake Total 3100 1628 Balance 3100 1628 Weight 77.4 kg 77.4 kg General appearance: PRESENT: no acute distress Eye exam: PRESENT: PERRLA Respiratory exam: PRESENT: clear to auscultation heidi Cardiovascular exam: PRESENT: +S1, +S2 GI/Abdominal exam: PRESENT: soft, other - PEG tube in place Neurological exam: PRESENT: alert Results Laboratory Results: 08/27/19 20:24 08/28/19 02:48 08/27/19 08/27/19 08/27/19 20:24 20:24 20:24 WBC 6.5 RBC 3.38 L Hgb 10.2 L Hct 30.1 L MCV 89 MCH 30.3 MCHC 34.0 RDW 18.8 H Plt Count 262 Seg Neutrophils % 46.5 VBG pH 7.43 H VBG pCO2 42.8 VBG HCO3 27.6 VBG Base Excess 2.9 Sodium 128.3 L Potassium 6.2 H* Chloride 96 L Carbon Dioxide 28 Anion Gap 4 L BUN 95 H Creatinine 2.19 H Est GFR ( Amer) 26 L Glucose 107 Lactic Acid Calcium 10.8 H Magnesium 2.4 H Total Bilirubin 0.2 AST 21 Alkaline Phosphatase 93 Total Protein 6.2 L Albumin 2.8 L Urine Color Urine Appearance Urine pH Ur Specific [place] Urine Protein Urine Glucose (UA) Urine Ketones Urine Blood Urine Nitrite Ur Leukocyte Esterase Urine WBC (Auto) Urine RBC (Auto) 08/27/19 08/27/19 08/27/19 20:24 20:24 23:25 WBC RBC Hgb Hct MCV MCH MCHC RDW Plt Count Seg Neutrophils % VBG pH VBG pCO2 VBG HCO3 VBG Base Excess Sodium Potassium Chloride Carbon Dioxide Anion Gap BUN Creatinine Est GFR ( Amer) Glucose Lactic Acid 1.4 2.7 H Calcium Magnesium Total Bilirubin AST Alkaline Phosphatase Total Protein Albumin Urine Color YELLOW Urine Appearance CLOUDY Urine pH 6.0 Ur Specific [place] 1.010 Urine Protein NEGATIVE Urine Glucose (UA) NEGATIVE Urine Ketones NEGATIVE Urine Blood SMALL H Urine Nitrite NEGATIVE Ur Leukocyte Esterase LARGE H Urine WBC (Auto) >182 Urine RBC (Auto) 23 08/27/19 08/28/19 08/28/19 23:25 02:48 02:48 WBC RBC Hgb Hct MCV MCH MCHC RDW Plt Count Seg Neutrophils % VBG pH VBG pCO2 VBG HCO3 VBG Base Excess Sodium 133.3 L 133.4 L Potassium 4.6 D 4.7 Chloride 104 105 Carbon Dioxide 24 23 Anion Gap 5 5 BUN 83 H 76 H Creatinine 1.85 H 1.79 H Est GFR ( Amer) 32 L 33 L Glucose 48 L 162 H Lactic Acid 2.0 Calcium 9.8 9.8 Magnesium Total Bilirubin AST Alkaline Phosphatase Total Protein Albumin Urine Color Urine Appearance Urine pH Ur Specific [place] Urine Protein Urine Glucose (UA) Urine Ketones Urine Blood Urine Nitrite Ur Leukocyte Esterase Urine WBC (Auto) Urine RBC (Auto) 08/27/19 08/27/19 20:24 20:24 Troponin I 0.028 NT-Pro-B Natriuret Pep 6910 H Impressions: Head CT 08/27/19 21:37 IMPRESSION: Age-appropriate atrophy and small vessel ischemic change TECHNICAL DOCUMENTATION: Quality ID # 436: Final reports with documentation of one or more dose reduction techniques (e.g., Automated exposure control, adjustment of the mA and/or kV according to patient size, use of iterative reconstruction technique) copyright 2011 [employer]- All Rights Reserved Chest X-Ray 08/27/19 22:27 IMPRESSION: Nodular right perihilar airspace opacity may reflect pneumonia however follow-up is recommended. copyright 2011 [employer]- All Rights Reserved Assessment & Plan - Diagnosis (1) Acute kidney injury Is this a current diagnosis for this admission?: Yes Plan: This is probably dehydration continue hydration (2) Urinary tract infection Qualifiers: Urinary tract infection type: site unspecified Hematuria presence: without hematuria Qualified Code(s): N39.0 - Urinary tract infection, site not specified Is this a current diagnosis for this admission?: Yes Plan: Continue antibiotic (3) Abnormal CXR Is this a current diagnosis for this admission?: Yes Plan: obtain CT chest (4) Dementia Qualifiers: Dementia type: Alzheimer's disease Alzheimer's disease onset: late-onset Dementia behavioral disturbance: without behavioral disturbance Qualified Code(s): G30.1 - Alzheimer's disease with late onset; F02.80 - Dementia in other diseases classified elsewhere without behavioral disturbance Is this a current diagnosis for this admission?: Yes
[2019-08-28] MEDS ORDERED: DIPHENHYDRAMINE HCL 25 MG CAPSULE PO PRN (19:53)
[2019-08-28] MEDS ORDERED: ONDANSETRON HCL INJ/PF 4 MG/2 ML SDV IM PRN (19:53)
[2019-08-28] MEDS ORDERED: (PENDING PHARMACY ID) (Acetaminophen [Tylenol] 650 MG) PO PRN (19:53)
[2019-08-28] MEDS ORDERED: (PENDING PHARMACY ID) (Mirtazapine [Mirtazapine] 30 MG) PO SCH (22:00)
[2019-08-28] MEDS ORDERED: FERROUS SULFATE 325 MG TABLET PO SCH (22:00)
[2019-08-28] MEDS ORDERED: DONEPEZIL HCL 5 MG TABLET PO SCH (22:00)
[2019-08-28] MEDS ORDERED: (PENDING PHARMACY ID) (Donepezil Hcl [Donepezil Hcl] 10 MG) PO SCH (22:00)
[2019-08-28] MEDS ORDERED: MIRTAZAPINE 15 MG TABLET PO SCH (22:00)
[2019-08-28] MEDS ORDERED: ATORVASTATIN CALCIUM 40 MG TABLET PEG SCH (22:00)
--- NOTE | 2019-08-28 22:02 | RADIOLOGY REPORT (SQ) ---
EXAM DESCRIPTION: CT CHEST WITHOUT IV CONTRAST COMPLETED DATE/TME: 08/28/2019 00:00 CLINICAL HISTORY: 78 years, Female, ? pneumonia COMPARISON: Multiple prior chest radiographs TECHNIQUE: Noncontrast CT chest was acquired. Coronal and sagittal reformations were created. Images stored on PACS. All CT scanners at this facility use dose modulation, iterative reconstruction, and/or weight based dosing when appropriate to reduce radiation dose to as low as reasonably achievable (ALARA). [facility]: Dose Right [facility]: CareDose [facility]: Dose Right [facility]: Teradose 4D [facility]: Smart [facility] LIMITATIONS: None. FINDINGS: Central airways are patent. Bands of opacity are noted about both lungs, indicating areas of atelectasis and/or scar. There are elements of bronchiectasis about the left lower lobe. No suspicious pulmonary nodules are evident. Lungs are otherwise clear. Mediastinal windows show no suspicious hilar or mediastinal lymph node enlargement. Calcifications are evident about the thoracic aorta. Heart and great vessels otherwise show no suspicious abnormality. Limited evaluation of the upper abdomen reveals a percutaneous gastrostomy tube in position. A fluid density lesion appears emanates from the upper pole of the right kidney, incompletely assessed on this noncontrast study though statistically a simple renal cyst. There is a small hiatal hernia. A small focus of gas density appears to emanate from the lateral aspect of the GE junction on the right, best visualized on image 34 of series 601, presumably indicating gas within an epiphrenic diverticulum. In addition, there are a few scattered colonic diverticula. Bone windows show no destructive osseous lesions. IMPRESSION: No acute abnormality within the chest. TECHNICAL DOCUMENTATION: Quality ID # 436: Final reports with documentation of one or more dose reduction techniques (e.g., Automated exposure control, adjustment of the mA and/or kV according to patient size, use of iterative reconstruction technique) copyright 2011 [employer]- All Rights Reserved
[2019-08-28] MEDS: LEVETIRACETAM ORAL SOLN 500 MG/5 ML UDCUP PO SCH (22:24)
[2019-08-28] MEDS: LACTOBACILLUS ACIDOPHILUS 250 MG TAB PO SCH (22:24)
[2019-08-28] MEDS: APIXABAN 2.5 MG TABLET PO SCH (22:25)
[2019-08-28] MEDS: LACOSAMIDE 100 MG TABLET PO SCH (22:25)
[2019-08-28] MEDS: CLOTRIMAZOLE 1% CREAM 15 GM TP SCH (23:47)
[2019-08-28] MEDS: METOPROLOL SUCCINATE 50 MG TAB.SR.24H PO SCH (23:48)
[2019-08-28] MEDS: MAGNESIUM OXIDE 400 MG TABLET PO SCH (23:48)
[2019-08-28] MEDS: CHOLECALCIFEROL (D3) 1,000 UNIT (25 MCG) TABLET PEG SCH (23:48)
[2019-08-28] MEDS: CALCITRIOL 0.25 MCG CAPSULE PO SCH (23:48)
[2019-08-29] MEDS: PIPERACILLIN SODIUM/TAZOBACTAM 3.375 GM in NORMAL SALINE 100 ML IV SCH ×4 (00:19→17:41)
[2019-08-29] MEDS ORDERED: NORMAL SALINE 250 ML IV ONE (00:45)
[2019-08-29] MEDS: NORMAL SALINE 1000 ML 1,000 ML IV PRN ×4 (01:10→22:48)
[2019-08-29 07:08] LABS: ABSOLUTE EOSINOPHILS # (AUTO) 0.4 10^3/uL (0.0-0.6); ABSOLUTE LYMPHOCYTES (AUTO) 1.1 10^3/uL (0.5-4.7); ABSOLUTE MONOCYTES (AUTO) 0.5 10^3/uL (0.1-1.4); ABSOLUTE NEUT (AUTO) 2.1 10^3/uL (1.7-8.2); EOSINOPHILS % (AUTO) 9.9 % (0-6); HEMATOCRIT 25.9 % (36.0-47.0); HEMOGLOBIN 8.6 g/dL (12.0-15.5); LYMPHOCYTES % (AUTO) 26.2 % (13-45); MEAN CORPUSCULAR HEMOGLOBIN 30.3 pg (27.0-33.4); MEAN CORPUSCULAR HGB CONC 33.1 g/dL (32.0-36.0); MEAN CORPUSCULAR VOLUME 92 fl (80-97); MONOCYTES % (AUTO) 11.1 % (3-13); PLATELET COUNT 237 10^3/uL (150-450); RED BLOOD COUNT 2.83 10^6/uL (3.72-5.28); RED CELL DISTRIBUTION WIDTH 18.7 % (11.5-14.0); SEGMENTED NEUTROPHILS % (AUTO) 51.8 % (42-78); TOTAL CELLS COUNTED % (AUTO) 100 %; WHITE BLOOD COUNT 4.1 10^3/uL (4.0-10.5)
[2019-08-29] MEDS ORDERED: PANTOPRAZOLE SODIUM 40 MG TABLET.DR PO SCH (08:00)
[2019-08-29] MEDS: NYSTATIN TOPICAL POWDER 15 GM TP SCH (08:09)
[2019-08-29] MEDS: MAGNESIUM OXIDE 400 MG TABLET PO SCH (08:09)
[2019-08-29] MEDS: APIXABAN 2.5 MG TABLET PO SCH ×2 (10:45→17:41)
[2019-08-29] MEDS: CALCITRIOL 0.25 MCG CAPSULE PO SCH (10:45)
[2019-08-29] MEDS: LACOSAMIDE 100 MG TABLET PO SCH (10:45)
[2019-08-29] MEDS: CHOLECALCIFEROL (D3) 1,000 UNIT (25 MCG) TABLET PEG SCH (10:45)
[2019-08-29] MEDS: LEVETIRACETAM ORAL SOLN 500 MG/5 ML UDCUP PO SCH (10:45)
[2019-08-29] MEDS: CLOTRIMAZOLE 1% CREAM 15 GM TP SCH (10:45)
[2019-08-29] MEDS: LACTOBACILLUS ACIDOPHILUS 250 MG TAB PO SCH ×2 (10:45→17:41)
[2019-08-29] MEDS: METOPROLOL SUCCINATE 50 MG TAB.SR.24H PO SCH (10:48)
[2019-08-29 11:23] LABS: ANION GAP 5 (5-19); BLOOD UREA NITROGEN 55 mg/dL (7-20); CALCIUM 8.8 mg/dL (8.4-10.2); CARBON DIOXIDE 24 mmol/L (22-30); CHLORIDE 109 mmol/L (98-107); GLUCOSE 100 mg/dL (75-110); POTASSIUM 3.6 mmol/L (3.6-5.0)
--- NOTE | 2019-08-29 12:06 | PDOC PROGRESS REPORT ---
Subjective Progress Note for:: 08/29/19 Subjective:: Patient appears to be better today. She is more awake and answering few questions although she is still confused with a baseline dementia. Her urine output was only recorded at 350 mL but may not be as accurate as we wanted. She was noted to have low blood pressure overnight as low as 86/44 and currently still running around 90s over 40s. Her IV fluids was increased 150 mL an hour for [address] Mcarthur. She otherwise does not verbalize much compla ints. Reason For Visit: UTI (URINARY TRACT INFECTION),PNEUMONIA,ACUTE Physical Exam Vital Signs: Temp Pulse Resp BP Pulse Ox 97.4 F 97 14 92/50 L 97 08/29/19 07:58 08/29/19 07:58 08/29/19 07:58 08/29/19 07:58 08/29/19 07:58 Intake & Output 08/28/19 08/29/19 08/30/19 06:59 06:59 06:59 Intake Total 3100 3349 1000 Output Total 350 Balance 3100 2999 1000 Weight 77.4 kg 81.8 kg Exam: General appearance: PRESENT: no acute distress, cooperative, fairly developed fairly nourished Head exam: PRESENT: atraumatic, normocephalic Eye exam: PRESENT: conjunctiva slightly pale, PERRLA. ABSENT: scleral icterus Neck exam: ABSENT: JVD Respiratory exam: PRESENT: Diminished breath sounds. ABSENT: crackles, rales, rhonchi, unlabored, wheezes Cardiovascular exam: PRESENT: Regular rate rhythm -+S1, +S2. ABSENT: diastolic murmur, systolic murmur GI/Abdominal exam: PRESENT: normal bowel sounds, soft. ABSENT: guarding, mass, tenderness Extremities exam: ABSENT: No edema Neurological exam: PRESENT: alert, awake, demented. Skin exam: PRESENT: dry, warm, Results Laboratory Results: 08/29/19 06:50 08/28/19 02:48 08/29/19 06:50 WBC 4.1 RBC 2.83 L Hgb 8.6 L Hct 25.9 L MCV 92 MCH 30.3 MCHC 33.1 RDW 18.7 H Plt Count 237 Seg Neutrophils % 51.8 08/27/19 20:24 Blood Blood Culture (PCR) - Final Enterococcus Species Staphylococcus Species 08/27/19 08/27/19 20:24 20:24 Troponin I 0.028 NT-Pro-B Natriuret Pep 6910 H Impressions: Head CT 08/27/19 21:37 IMPRESSION: Age-appropriate atrophy and small vessel ischemic change TECHNICAL DOCUMENTATION: Quality ID # 436: Final reports with documentation of one or more dose reduction techniques (e.g., Automated exposure control, adjustment of the mA and/or kV according to patient size, use of iterative reconstruction technique) copyright 2010 [employer]- All Rights Reserved Chest X-Ray 08/27/19 22:27 IMPRESSION: Nodular right perihilar airspace opacity may reflect pneumonia however follow-up is recommended. copyright 2010 [employer]- All Rights Reserved Chest CT 08/28/19 00:00 IMPRESSION: No acute abnormality within the chest. TECHNICAL DOCUMENTATION: Quality ID # 436: Final reports with documentation of one or more dose reduction techniques (e.g., Automated exposure control, adjustment of the mA and/or kV according to patient size, use of iterative reconstruction technique) copyright 2010 [employer]- All Rights Reserved Assessment & Plan - Diagnosis (1) Acute kidney injury Is this a current diagnosis for this admission?: Yes Plan: Secondary to acute prerenal azotemia. Currently improving to almost baseline with creatinine now 1.38 with an EGFR of 45. Her baseline creatinine usually ranges anywhere between 0.9-1.14. Continue IV fluid hydration and maintain normotension. (2) Urinary tract infection Qualifiers: Urinary tract infection type: acute cystitis Hematuria presence: with hematuria Qualified Code(s): N30.01 - Acute cystitis with hematuria Is this a current diagnosis for this admission?: Yes Plan: On IV Zosyn due to previous history of ESBL E. coli. (3) Pneumonia Qualifiers: Pneumonia type: due to unspecified organism Laterality: right Lung location: unspecified part of lung Qualified Code(s): J18.9 - Pneumonia, unspecified organism Is this a current diagnosis for this admission?: Yes (4) Bacteremia due to Enterobacter species Is this a current diagnosis for this admission?: Yes Plan: Defer to primary provider. Await culture and sensitivity. (5) Hypotension Is this a current diagnosis for this admission?: Yes Plan: Patient has baseline hypertension but is currently hypotensive. On IV fluids with increased rate. (6) Facial twitching Is this a current diagnosis for this admission?: Yes (7) Dementia Qualifiers: Dementia type: Alzheimer's disease Alzheimer's disease onset: late-onset Dementia behavioral disturbance: without behavioral disturbance Qualified Code(s): G30.1 - Alzheimer's disease with late onset; F02.80 - Dementia in other diseases classified elsewhere without behavioral disturbance Is this a current diagnosis for this admission?: Yes - Notes Notes: Patient's kidney function continues to improve at this point. I do not have any further recommendations. I will sign off at this time. Please call if we can be of any further help. - Time Time with patient: 15-25 minutes
--- NOTE | 2019-08-29 20:17 | PDOC PROGRESS REPORT ---
Subjective Progress Note for:: 08/29/19 Subjective:: Patient was seen by the bedside, she had episode of low blood pressure last night, she required boluses of normal saline, the blood pressure was responsive to fluid, presently on normal saline at 150 cc/h up to 3 L, the blood culture presently positive for enterococcus species, staph specie, patient presently on Zosyn.The acute kidney injury is improved, patient is more alert oriented though still confused at baseline, progressive dementia Reason For Visit: UTI (URINARY TRACT INFECTION),PNEUMONIA,ACUTE Physical Exam Vital Signs: Temp Pulse Resp BP Pulse Ox 97.7 F 120 H 19 117/54 L 100 08/29/19 15:29 08/29/19 15:29 08/29/19 15:29 08/29/19 15:29 08/29/19 15:29 Intake & Output 08/28/19 08/29/19 08/30/19 06:59 06:59 06:59 Intake Total 3100 3349 3206 Output Total 350 475 Balance 3100 2999 2731 Weight 77.4 kg 81.8 kg General appearance: PRESENT: other - Confused Eye exam: PRESENT: PERRLA Respiratory exam: PRESENT: clear to auscultation heidi Cardiovascular exam: PRESENT: +S1, +S2 GI/Abdominal exam: PRESENT: soft Neurological exam: PRESENT: alert Skin exam: PRESENT: dry Results Laboratory Results: 08/29/19 06:50 08/29/19 06:50 08/29/19 08/29/19 06:50 06:50 WBC 4.1 RBC 2.83 L Hgb 8.6 L Hct 25.9 L MCV 92 MCH 30.3 MCHC 33.1 RDW 18.7 H Plt Count 237 Seg Neutrophils % 51.8 Sodium 137.7 Potassium 3.6 Chloride 109 H Carbon Dioxide 24 Anion Gap 5 BUN 55 H Creatinine 1.38 H Est GFR ( Amer) 45 L Glucose 100 Calcium 8.8 08/27/19 20:24 Blood Blood Culture (PCR) - Final Enterococcus Species Staphylococcus Species 08/27/19 08/27/19 20:24 20:24 Troponin I 0.028 NT-Pro-B Natriuret Pep 6910 H Impressions: Head CT 08/27/19 21:37 IMPRESSION: Age-appropriate atrophy and small vessel ischemic change TECHNICAL DOCUMENTATION: Quality ID # 436: Final reports with documentation of one or more dose reduction techniques (e.g., Automated exposure control, adjustment of the mA and/or kV according to patient size, use of iterative reconstruction technique) copyright 2010 [employer]- All Rights Reserved Chest X-Ray 08/27/19 22:27 IMPRESSION: Nodular right perihilar airspace opacity may reflect pneumonia however follow-up is recommended. copyright 2010 [employer]- All Rights Reserved Chest CT 08/28/19 00:00 IMPRESSION: No acute abnormality within the chest. TECHNICAL DOCUMENTATION: Quality ID # 436: Final reports with documentation of one or more dose reduction techniques (e.g., Automated exposure control, adjustment of the mA and/or kV according to patient size, use of iterative reconstruction technique) copyright 2010 [employer]- All Rights Reserved Assessment & Plan - Diagnosis (1) Acute kidney injury Is this a current diagnosis for this admission?: Yes Plan: The acute kidney injury is improved with hydration (2) Urinary tract infection Qualifiers: Urinary tract infection type: site unspecified Hematuria presence: without hematuria Qualified Code(s): N39.0 - Urinary tract infection, site not specified Is this a current diagnosis for this admission?: Yes (3) Abnormal CXR Is this a current diagnosis for this admission?: Yes Plan: CT chest negative for pneumonia (4) Dementia Qualifiers: Dementia type: Alzheimer's disease Alzheimer's disease onset: late-onset Dementia behavioral disturbance: without behavioral disturbance Qualified Code(s): G30.1 - Alzheimer's disease with late onset; F02.80 - Dementia in other diseases classified elsewhere without behavioral disturbance Is this a current diagnosis for this admission?: Yes Plan: Progressive dementia (5) Hypotension Qualifiers: Hypotension type: other hypotension type Qualified Code(s): I95.89 - Other hypotension Is this a current diagnosis for this admission?: Yes Plan: The blood pressure responsive to fluid therapy (6) Sepsis due to Enterococcus Is this a current diagnosis for this admission?: Yes Plan: Patient currently on Zosyn, continue same - Time Time Spent with patient: 25-34 minutes Level of Care: [facility]
[2019-08-29] MEDS ORDERED: DIPHENHYDRAMINE HCL 25 MG/10 ML UDC PEG PRN (21:14)
[2019-08-29] MEDS ORDERED: ACETAMINOPHEN SOLN 325 MG/10.15 ML UDCUP PEG PRN (21:22)
[2019-08-29] MEDS ORDERED: DEXTROSE 40% GEL 15 GM TUBE PEG PRN ×2 (21:30)
[2019-08-29] MEDS: MIRTAZAPINE 15 MG TABLET PEG SCH (22:35)
[2019-08-29] MEDS: LACOSAMIDE 100 MG TABLET PEG SCH (22:35)
[2019-08-29] MEDS: LEVETIRACETAM ORAL SOLN 500 MG/5 ML UDCUP PEG SCH (22:35)
[2019-08-29] MEDS: DONEPEZIL HCL 5 MG TABLET PEG SCH (22:35)
[2019-08-29] MEDS: FERROUS SULFATE LIQUID 300 MG/5 ML UDC PEG SCH (22:36)
[2019-08-30] MEDS: PIPERACILLIN SODIUM/TAZOBACTAM 3.375 GM in NORMAL SALINE 100 ML IV SCH ×5 (00:12→23:32)
[2019-08-30 07:03] LABS: ABSOLUTE EOSINOPHILS # (AUTO) 0.4 10^3/uL (0.0-0.6); ABSOLUTE LYMPHOCYTES (AUTO) 1.3 10^3/uL (0.5-4.7); ABSOLUTE MONOCYTES (AUTO) 0.6 10^3/uL (0.1-1.4); ABSOLUTE NEUT (AUTO) 3.5 10^3/uL (1.7-8.2); BASOPHILS % (AUTO) 0.4 % (0-2); EOSINOPHILS % (AUTO) 6.4 % (0-6); HEMATOCRIT 26.5 % (36.0-47.0); HEMOGLOBIN 8.8 g/dL (12.0-15.5); LYMPHOCYTES % (AUTO) 21.8 % (13-45); MEAN CORPUSCULAR HEMOGLOBIN 30.4 pg (27.0-33.4); MEAN CORPUSCULAR HGB CONC 33.3 g/dL (32.0-36.0); MEAN CORPUSCULAR VOLUME 91 fl (80-97); MONOCYTES % (AUTO) 10.7 % (3-13); PLATELET COUNT 258 10^3/uL (150-450); RED CELL DISTRIBUTION WIDTH 19.4 % (11.5-14.0); SEGMENTED NEUTROPHILS % (AUTO) 60.7 % (42-78); TOTAL CELLS COUNTED % (AUTO) 100 %; WHITE BLOOD COUNT 5.8 10^3/uL (4.0-10.5)
[2019-08-30 07:24] LABS: ANION GAP 5 (5-19); BLOOD UREA NITROGEN 37 mg/dL (7-20); CALCIUM 8.6 mg/dL (8.4-10.2); CARBON DIOXIDE 22 mmol/L (22-30); CHLORIDE 112 mmol/L (98-107); GLUCOSE 98 mg/dL (75-110); POTASSIUM 3.4 mmol/L (3.6-5.0)
--- NOTE | 2019-08-30 07:52 | EKG REPORT ---
SEVERITY:- ABNORMAL ECG - SINUS TACHYCARDIA NONSPECIFIC T ABNORMALITIES, DIFFUSE LEADS : Confirmed by: Geni Alexander MD 30-Aug-2019 07:51:19
[2019-08-30] MEDS: MAGNESIUM OXIDE 400 MG TABLET PEG SCH (11:58)
[2019-08-30] MEDS: LACTOBACILLUS ACIDOPHILUS 250 MG TAB PEG SCH ×2 (11:58→18:32)
[2019-08-30] MEDS: CHOLECALCIFEROL (D3) 1,000 UNIT (25 MCG) TABLET PEG SCH (11:58)
[2019-08-30] MEDS: CLOTRIMAZOLE 1% CREAM 15 GM TP SCH (11:59)
[2019-08-30] MEDS: PANTOPRAZOLE SODIUM 40 MG PACKET.DR GT SCH (11:59)
[2019-08-30] MEDS: LACOSAMIDE 100 MG TABLET PEG SCH ×2 (11:59→21:15)
[2019-08-30] MEDS: LEVETIRACETAM ORAL SOLN 500 MG/5 ML UDCUP PEG SCH ×2 (11:59→21:15)
[2019-08-30] MEDS: APIXABAN 2.5 MG TABLET PEG SCH ×2 (11:59→18:32)
[2019-08-30] MEDS: CALCITRIOL 1 MCG/ML ORAL SOLN 15 ML PEG SCH (12:00)
[2019-08-30] MEDS: NYSTATIN TOPICAL POWDER 15 GM TP SCH (12:00)
[2019-08-30] MEDS: NORMAL SALINE 1000 ML 1,000 ML IV PRN ×2 (12:38→20:20)
[2019-08-30] MEDS: METOPROLOL SUCCINATE 50 MG TAB.SR.24H PO SCH (12:50)
--- NOTE | 2019-08-30 14:57 | PDOC PROGRESS REPORT ---
Subjective Progress Note for:: 08/30/19 Subjective:: Patient continues to show improvement, she is confused at baseline Reason For Visit: UTI (URINARY TRACT INFECTION),PNEUMONIA,ACUTE Physical Exam Vital Signs: Temp Pulse Resp BP Pulse Ox 97.9 F 118 H 18 117/68 99 08/30/19 11:15 08/30/19 14:00 08/30/19 11:15 08/30/19 11:15 08/30/19 11:15 Intake & Output 08/29/19 08/30/19 08/31/19 06:59 06:59 06:59 Intake Total 3349 4948 1128 Output Total 350 875 Balance 2999 4073 1128 Weight 81.8 kg 87.2 kg 87.2 kg General appearance: PRESENT: no acute distress Eye exam: PRESENT: PERRLA Respiratory exam: PRESENT: clear to auscultation heidi Cardiovascular exam: PRESENT: +S1, +S2 GI/Abdominal exam: PRESENT: soft Neurological exam: PRESENT: altered Results Laboratory Results: 08/30/19 06:43 08/30/19 06:51 08/30/19 08/30/19 06:43 06:51 WBC 5.8 RBC 2.90 L Hgb 8.8 L Hct 26.5 L MCV 91 MCH 30.4 MCHC 33.3 RDW 19.4 H Plt Count 258 Seg Neutrophils % 60.7 Sodium 139.3 Potassium 3.4 L Chloride 112 H Carbon Dioxide 22 Anion Gap 5 BUN 37 H Creatinine 1.23 Est GFR ( Amer) 51 L Glucose 98 Calcium 8.6 08/27/19 20:24 Blood Blood Culture (PCR) - Final Enterococcus Species Staphylococcus Species 08/27/19 08/27/19 20:24 20:24 Troponin I 0.028 NT-Pro-B Natriuret Pep 6910 H Impressions: Head CT 08/27/19 21:37 IMPRESSION: Age-appropriate atrophy and small vessel ischemic change TECHNICAL DOCUMENTATION: Quality ID # 436: Final reports with documentation of one or more dose reduction techniques (e.g., Automated exposure control, adjustment of the mA and/or kV according to patient size, use of iterative reconstruction technique) copyright 2011 [employer]- All Rights Reserved Chest X-Ray 08/27/19 22:27 IMPRESSION: Nodular right perihilar airspace opacity may reflect pneumonia however follow-up is recommended. copyright 2010 [employer]- All Rights Reserved Chest CT 08/28/19 00:00 IMPRESSION: No acute abnormality within the chest. TECHNICAL DOCUMENTATION: Quality ID # 436: Final reports with documentation of one or more dose reduction techniques (e.g., Automated exposure control, adjustment of the mA and/or kV according to patient size, use of iterative reconstruction technique) copyright 2011 [employer]- All Rights Reserved Assessment & Plan - Diagnosis (1) Acute kidney injury Is this a current diagnosis for this admission?: Yes Plan: The acute kidney injury is improved with hydration (2) Urinary tract infection Qualifiers: Urinary tract infection type: site unspecified Hematuria presence: without hematuria Qualified Code(s): N39.0 - Urinary tract infection, site not specified Is this a current diagnosis for this admission?: Yes (3) Dementia Qualifiers: Dementia type: Alzheimer's disease Alzheimer's disease onset: late-onset Dementia behavioral disturbance: without behavioral disturbance Qualified Code(s): G30.1 - Alzheimer's disease with late onset; F02.80 - Dementia in other diseases classified elsewhere without behavioral disturbance Is this a current diagnosis for this admission?: Yes (4) Hypotension Qualifiers: Hypotension type: other hypotension type Qualified Code(s): I95.89 - Other hypotension Is this a current diagnosis for this admission?: Yes Plan: Resolved (5) Sepsis due to Enterococcus Is this a current diagnosis for this admission?: Yes Plan: Continue IV antibiotic - Time Time Spent with patient: 15-24 minutes Level of Care: [facility]
[2019-08-30] MEDS: MIRTAZAPINE 15 MG TABLET PEG SCH (21:15)
[2019-08-30] MEDS: FERROUS SULFATE LIQUID 300 MG/5 ML UDC PEG SCH (21:15)
[2019-08-30] MEDS: DONEPEZIL HCL 5 MG TABLET PEG SCH (21:15)
[2019-08-31] MEDS: NORMAL SALINE 1000 ML 1,000 ML IV PRN ×2 (02:40→22:35)
[2019-08-31] MEDS: PIPERACILLIN SODIUM/TAZOBACTAM 3.375 GM in NORMAL SALINE 100 ML IV SCH ×2 (05:23→12:58)
[2019-08-31 07:00] LABS: ABSOLUTE BASOPHILS # (AUTO) 0.1 10^3/uL (0.0-0.2); ABSOLUTE EOSINOPHILS # (AUTO) 0.4 10^3/uL (0.0-0.6); ABSOLUTE LYMPHOCYTES (AUTO) 1.8 10^3/uL (0.5-4.7); ABSOLUTE MONOCYTES (AUTO) 0.7 10^3/uL (0.1-1.4); BASOPHILS % (AUTO) 1.2 % (0-2); EOSINOPHILS % (AUTO) 5.5 % (0-6); HEMATOCRIT 27.2 % (36.0-47.0); HEMOGLOBIN 9.2 g/dL (12.0-15.5); LYMPHOCYTES % (AUTO) 25.9 % (13-45); MEAN CORPUSCULAR HGB CONC 33.7 g/dL (32.0-36.0); MEAN CORPUSCULAR VOLUME 89 fl (80-97); MONOCYTES % (AUTO) 9.6 % (3-13); PLATELET COUNT 277 10^3/uL (150-450); RED BLOOD COUNT 3.05 10^6/uL (3.72-5.28); RED CELL DISTRIBUTION WIDTH 19.2 % (11.5-14.0); SEGMENTED NEUTROPHILS % (AUTO) 57.8 % (42-78); TOTAL CELLS COUNTED % (AUTO) 100 %
[2019-08-31] MEDS: APIXABAN 2.5 MG TABLET PEG SCH ×2 (10:38→17:54)
[2019-08-31] MEDS: LEVETIRACETAM ORAL SOLN 500 MG/5 ML UDCUP PEG SCH ×2 (10:38→21:48)
[2019-08-31] MEDS: METOPROLOL TARTRATE 50 MG TABLET PEG SCH (10:38)
[2019-08-31] MEDS: CHOLECALCIFEROL (D3) 1,000 UNIT (25 MCG) TABLET PEG SCH (10:39)
[2019-08-31] MEDS: LACTOBACILLUS ACIDOPHILUS 250 MG TAB PEG SCH ×2 (10:39→17:54)
[2019-08-31] MEDS: PANTOPRAZOLE SODIUM 40 MG PACKET.DR GT SCH (10:39)
[2019-08-31] MEDS: LACOSAMIDE 100 MG TABLET PEG SCH ×2 (10:39→21:49)
[2019-08-31] MEDS: MAGNESIUM OXIDE 400 MG TABLET PEG SCH (10:39)
[2019-08-31] MEDS: CLOTRIMAZOLE 1% CREAM 15 GM TP SCH (10:40)
[2019-08-31] MEDS: NYSTATIN TOPICAL POWDER 15 GM TP SCH (10:40)
[2019-08-31] MEDS: CALCITRIOL 1 MCG/ML ORAL SOLN 15 ML PEG SCH (10:42)
[2019-08-31] MEDS ORDERED: VANCOMYCIN HCL 0 MG in DEXTROSE 5%-WATER 250 ML IV NR (12:30)
[2019-08-31] MEDS ORDERED: VANCOMYCIN HCL 1,000 MG in DEXTROSE 5%-WATER 250 ML IV SCH ×2 (14:00→22:00)
--- NOTE | 2019-08-31 18:39 | PDOC PROGRESS REPORT ---
Subjective Progress Note for:: 08/31/19 Subjective:: Patient seen by the bedside, The blood culture grew Enterococcus faecium, resistant to all antibiotic except vancomycin. ID suggested that this could be contamination, suggest a repeat of the blood culture if positive then we should initiate vancomycin. Patient is back to baseline, she is pleasantly confused no new acute changes Reason For Visit: UTI (URINARY TRACT INFECTION),PNEUMONIA,ACUTE Physical Exam Vital Signs: Temp Pulse Resp BP Pulse Ox 97.3 F 84 18 135/70 H 100 08/31/19 11:33 08/31/19 14:00 08/31/19 11:33 08/31/19 11:33 08/31/19 11:33 Intake & Output 08/30/19 08/31/19 09/01/19 06:59 06:59 06:59 Intake Total 4948 3162 992 Output Total 875 1100 200 Balance 4073 2062 792 Weight 87.2 kg 87.7 kg General appearance: PRESENT: no acute distress Eye exam: PRESENT: PERRLA Respiratory exam: PRESENT: clear to auscultation heidi Cardiovascular exam: PRESENT: +S1, +S2 GI/Abdominal exam: PRESENT: soft Neurological exam: PRESENT: alert Results Laboratory Results: 08/31/19 06:05 08/30/19 06:51 08/31/19 06:05 WBC 7.0 RBC 3.05 L Hgb 9.2 L Hct 27.2 L MCV 89 MCH 30.0 MCHC 33.7 RDW 19.2 H Plt Count 277 Seg Neutrophils % 57.8 08/27/19 20:24 Blood Blood Culture (PCR) - Final Enterococcus Species Staphylococcus Species 08/27/19 08/27/19 20:24 20:24 Troponin I 0.028 NT-Pro-B Natriuret Pep 6910 H Impressions: Head CT 08/27/19 21:37 IMPRESSION: Age-appropriate atrophy and small vessel ischemic change TECHNICAL DOCUMENTATION: Quality ID # [id number]: Final reports with documentation of one or more dose reduction techniques (e.g., Automated exposure control, adjustment of the mA and/or kV according to patient size, use of iterative reconstruction technique) copyright 2010 [employer]- All Rights Reserved Chest X-Ray 08/27/19 22:27 IMPRESSION: Nodular right perihilar airspace opacity may reflect pneumonia however follow-up is recommended. copyright 2010 [employer]- All Rights Reserved Chest CT 08/28/19 00:00 IMPRESSION: No acute abnormality within the chest. TECHNICAL DOCUMENTATION: Quality ID # [id number]: Final reports with documentation of one or more dose reduction techniques (e.g., Automated exposure control, adjustment of the mA and/or kV according to patient size, use of iterative reconstruction technique) copyright 2011 [employer]- All Rights Reserved Assessment & Plan - Diagnosis (1) Acute kidney injury Is this a current diagnosis for this admission?: Yes Plan: Resolved (2) Urinary tract infection Qualifiers: Urinary tract infection type: site unspecified Hematuria presence: without hematuria Qualified Code(s): N39.0 - Urinary tract infection, site not specified Is this a current diagnosis for this admission?: Yes (3) Dementia Qualifiers: Dementia type: Alzheimer's disease Alzheimer's disease onset: late-onset Dementia behavioral disturbance: without behavioral disturbance Qualified Code(s): G30.1 - Alzheimer's disease with late onset; F02.80 - Dementia in other diseases classified elsewhere without behavioral disturbance Is this a current diagnosis for this admission?: Yes (4) Hypotension Qualifiers: Hypotension type: other hypotension type Qualified Code(s): I95.89 - Other hypotension Is this a current diagnosis for this admission?: Yes Plan: Resolved (5) Sepsis due to Enterococcus Is this a current diagnosis for this admission?: Yes Plan: The blood culture positive for Enterococcus faecium infectious disease suggest this could be contamination, the bacteria is resistant to all antibiotic except vancomycin, a repeat blood cultures obtained, if positive then vancomycin will be restarted if negative then is probably contamination - Time Time Spent with patient: 15-24 minutes Level of Care: IMCU
[2019-08-31] MEDS: FERROUS SULFATE LIQUID 300 MG/5 ML UDC PEG SCH (21:48)
[2019-08-31] MEDS: DONEPEZIL HCL 5 MG TABLET PEG SCH (21:48)
[2019-08-31] MEDS: MIRTAZAPINE 15 MG TABLET PEG SCH (21:48)
[2019-09-01] MEDS: METOPROLOL TARTRATE 50 MG TABLET PEG SCH (11:22)
[2019-09-01] MEDS: LACOSAMIDE 100 MG TABLET PEG SCH ×2 (11:22→21:34)
[2019-09-01] MEDS: LACTOBACILLUS ACIDOPHILUS 250 MG TAB PEG SCH ×2 (11:22→17:19)
[2019-09-01] MEDS: CHOLECALCIFEROL (D3) 1,000 UNIT (25 MCG) TABLET PEG SCH (11:22)
[2019-09-01] MEDS: MAGNESIUM OXIDE 400 MG TABLET PEG SCH (11:22)
[2019-09-01] MEDS: APIXABAN 2.5 MG TABLET PEG SCH ×2 (11:22→17:19)
[2019-09-01] MEDS: CALCITRIOL 1 MCG/ML ORAL SOLN 15 ML PEG SCH (11:23)
[2019-09-01] MEDS: LEVETIRACETAM ORAL SOLN 500 MG/5 ML UDCUP PEG SCH ×2 (11:23→21:35)
[2019-09-01] MEDS: CLOTRIMAZOLE 1% CREAM 15 GM TP SCH (11:23)
[2019-09-01] MEDS: NYSTATIN TOPICAL POWDER 15 GM TP SCH (11:23)
[2019-09-01] MEDS: PANTOPRAZOLE SODIUM 40 MG PACKET.DR GT SCH (11:23)
--- NOTE | 2019-09-01 12:13 | Progress Note ---
Provider Note Provider Note: [facility] ID Telephone Advice Consultation Chart reviewed. Patient is a 78-year-old woman that has had multiple health problems including progressive dementia, CVA, seizure disorder, cerebellar infarct, CKD 3, hypertension, pulmonary embolism. She was found with worsening altered mental status, acute kidney injury with a creatinine of 2.19, potassium of 6.2, BUN 95. Her BNP was above 6,000. SHe was afebrile and without leukocytosis. CXR with nodular opacity on the right side but CT chest did not show changes consistent with pneumonia. Her UA was positive for pyuria, urine culture ordered today. Her blood culture from 08/26 was positive set with Staphylococcus spp and Enterococcus faecium. She has been on zosyn for UTI. New blood cultures done yesterday. Patient's LIANET has resolved and her mental status is back at baseline. ID consulted for recommendations. PSH: Knee replacement Allergies: steroids Adverse Reaction (Intermediate, Uncoded 08/27/19 21:19) Medications: Allopurinol [Zyloprim 100 mg Tablet] 100 mg PEG DAILY 08/27/19 Cholecalciferol (Vitamin D3) [Vitamin D3 1000 Unit Tablet] 2,000 unit PEG DAILY 08/27/19 Ferrous Sulfate [Feosol 325 mg Tablet] 325 mg PEG QHS 08/27/19 Gabapentin [Neurontin 100 mg Capsule] 200 mg PEG QHS 08/27/19 Lacosamide [Vimpat 100 mg Tablet] 100 mg PEG Q12 08/27/19 Levothyroxine Sodium [Synthroid 0.075 mg Tablet] 0.075 mg PEG DAILY 08/27/19 Acetaminophen [Tylenol] 650 mg PO Q6HP PRN 08/28/19 Apixaban [Eliquis 2.5 mg Tablet] 2.5 mg PO BID 08/28/19 Calcitriol [Rocaltrol 0.25 Mcg Capsule] 1 cap PO DAILY 08/28/19 Clotrimazole [Lotrimin AF] 1 applic TP DAILY 08/28/19 Diphenhydramine HCl [Benadryl] 25 mg PO Q6HP PRN 08/28/19 Donepezil HCl 10 mg PO QHS 08/28/19 L.acidoph/L.bulg/B.bif/S.therm [Bacid Caplet] 2 tab PO BID 08/28/19 Levetiracetam 1,000 mg PO BID 08/28/19 Magnesium Oxide [Mag-Ox 400 mg Tablet] 400 mg PO QAM 08/28/19 Metoprolol Succinate [Toprol Xl 50 mg Tab.sr] 50 mg PO DAILY 08/28/19 Mirtazapine 30 mg PO QHS 08/28/19 Nystatin [Mycostatin Topical Powder 15 gm] 1 applic TP QA 08/28/19 Ondansetron HCl/Pf [Zofran Inj/Pf 4 mg/2 ml Sdv] 4 mg IM Q6HP PRN 08/28/19 Pantoprazole Sodium 40 mg PO QA 08/28/19 Vital Signs: Temp Pulse Resp BP Pulse Ox 97.5 F 107 H 14 106/41 L 100 09/01/19 07:54 09/01/19 07:54 09/01/19 07:54 09/01/19 07:54 09/01/19 07:54 Intake & Output 08/31/19 09/01/19 09/02/19 06:59 06:59 06:59 Intake Total 3162 1988 100 Output Total 1100 550 Balance 2062 1438 100 Weight 87.7 kg 87.3 kg Weight/Height Weight 87.3 kg Height 5 ft 2 in Laboratories: 08/31/19 06:05 08/30/19 06:51 MCV 89 fl (80-97) 08/31/19 06:05 MCH 30.0 pg (27.0-33.4) 08/31/19 06:05 MCHC 33.7 g/dL (32.0-36.0) 08/31/19 06:05 RDW 19.2 % (11.5-14.0) H 08/31/19 06:05 Seg Neutrophils % 57.8 % (42-78) 08/31/19 06:05 VBG pH 7.43 (7.30-7.42) H 08/27/19 20:24 VBG pCO2 42.8 mmHg (35-63) 08/27/19 20:24 VBG HCO3 27.6 mmol/L (20-32) 08/27/19 20:24 VBG Base Excess 2.9 mmol/L 08/27/19 20:24 Chloride 112 mmol/L (98-107) H 08/30/19 06:51 Carbon Dioxide 22 mmol/L (22-30) 08/30/19 06:51 Anion Gap 5 (5-19) 08/30/19 06:51 Est GFR ( Amer) 51 (>60) L 08/30/19 06:51 Glucose 98 mg/dL (75-110) 08/30/19 06:51 Lactic Acid 2.0 mmol/L (0.7-2.1) 08/28/19 02:48 Calcium 8.6 mg/dL (8.4-10.2) 08/30/19 06:51 Magnesium 2.4 mg/dL (1.6-2.3) H 08/27/19 20:24 Total Bilirubin 0.2 mg/dL (0.2-1.3) 08/27/19 20:24 AST 21 U/L (14-36) 08/27/19 20:24 Alkaline Phosphatase 93 U/L (38-126) 08/27/19 20:24 Total Protein 6.2 g/dL (6.3-8.2) L 08/27/19 20:24 Albumin 2.8 g/dL (3.5-5.0) L 08/27/19 20:24 Urine Color YELLOW 08/27/19 20:24 Urine Appearance CLOUDY 08/27/19 20:24 Urine pH 6.0 (5.0-9.0) 08/27/19 20:24 Ur Specific [place] 1.010 08/27/19 20:24 Urine Protein NEGATIVE mg/dL (NEGATIVE) 08/27/19 20:24 Urine Glucose (UA) NEGATIVE mg/dL (NEGATIVE) 08/27/19 20:24 Urine Ketones NEGATIVE mg/dL (NEGATIVE) 08/27/19 20:24 Urine Blood SMALL (NEGATIVE) H 08/27/19 20:24 Urine Nitrite NEGATIVE (NEGATIVE) 08/27/19 20:24 Ur Leukocyte Esterase LARGE (NEGATIVE) H 08/27/19 20:24 Urine WBC (Auto) >182 /HPF 08/27/19 20:24 Urine RBC (Auto) 23 /HPF 08/27/19 20:24 08/27/19 20:24 Blood Blood Culture (PCR) - Final Enterococcus Species Staphylococcus Species 08/27/19 08/27/19 20:24 20:24 Troponin I 0.028 NT-Pro-B Natriuret Pep 6910 H Microbiology: Blood cultures: 08/26 Enterococcus faecium, Staphylococcus spp 08/30 In process Urine culture: 08/31 In process Radiology: Head CT 08/27/19 21:37 IMPRESSION: Age-appropriate atrophy and small vessel ischemic change Chest X-Ray 08/27/19 22:27 IMPRESSION: Nodular right perihilar airspace opacity may reflect pneumonia however follow-up is recommended. Chest CT 08/28/19 00:00 IMPRESSION: No acute abnormality within the chest. Assessment and Recommendations: Patient consulted due to positive blood cultures with Enterococcus faecium and Staphylococcus spp. These seem to be contaminants, but in the setting of possible urinary tract infection, will have to rule out active infection. Will recommend urine culture and new blood cultures and to hold off vancomycin unless there is clinical deterioration or if new blood cultures are positive for Enterococcus again. She seems to be doing better after aggressive hydration and resolution of LIANET. Dena Tinoco MD [facility] ID [phone]
[2019-09-01] MEDS: NORMAL SALINE 1000 ML 1,000 ML IV PRN (17:22)
--- NOTE | 2019-09-01 21:28 | PDOC PROGRESS REPORT ---
Subjective Progress Note for:: 09/01/19 Subjective:: The repeat blood culture was negative, no need for any more antibiotic Reason For Visit: UTI (URINARY TRACT INFECTION),PNEUMONIA,ACUTE Physical Exam Vital Signs: Temp Pulse Resp BP Pulse Ox 97.8 F 96 14 120/71 100 09/01/19 16:38 09/01/19 19:00 09/01/19 16:38 09/01/19 16:38 09/01/19 16:38 Intake & Output 08/31/19 09/01/19 09/02/19 06:59 06:59 06:59 Intake Total 3162 1987 1991 Output Total 1100 550 200 Balance 2062 1438 1792 Weight 87.7 kg 87.3 kg General appearance: PRESENT: no acute distress Eye exam: PRESENT: PERRLA Respiratory exam: PRESENT: clear to auscultation heidi Cardiovascular exam: PRESENT: +S1, +S2 GI/Abdominal exam: PRESENT: soft Neurological exam: PRESENT: alert Results Laboratory Results: 08/31/19 06:05 08/30/19 06:51 08/27/19 20:24 Blood Blood Culture (PCR) - Final Enterococcus Species Staphylococcus Species 08/27/19 20:24 Blood Blood Culture - Final Enterococcus Faecium (Group D) Staphylococcus Epidermidis 08/27/19 08/27/19 20:24 20:24 Troponin I 0.028 NT-Pro-B Natriuret Pep 6910 H Impressions: Head CT 08/27/19 21:37 IMPRESSION: Age-appropriate atrophy and small vessel ischemic change TECHNICAL DOCUMENTATION: Quality ID # [id number]: Final reports with documentation of one or more dose reduction techniques (e.g., Automated exposure control, adjustment of the mA and/or kV according to patient size, use of iterative reconstruction technique) copyright 2010 [employer]- All Rights Reserved Chest X-Ray 08/27/19 22:27 IMPRESSION: Nodular right perihilar airspace opacity may reflect pneumonia however follow-up is recommended. copyright 2010 [employer]- All Rights Reserved Chest CT 08/28/19 00:00 IMPRESSION: No acute abnormality within the chest. TECHNICAL DOCUMENTATION: Quality ID # [id number]: Final reports with documentation of one or more dose reduction techniques (e.g., Automated exposure control, adjustment of the mA and/or kV according to patient size, use of iterative reconstruction technique) copyright 2011 [employer]- All Rights Reserved Assessment & Plan - Diagnosis (1) Acute kidney injury Is this a current diagnosis for this admission?: Yes (2) Urinary tract infection Qualifiers: Urinary tract infection type: site unspecified Hematuria presence: without hematuria Qualified Code(s): N39.0 - Urinary tract infection, site not specified Is this a current diagnosis for this admission?: Yes (3) Dementia Qualifiers: Dementia type: Alzheimer's disease Alzheimer's disease onset: late-onset Dementia behavioral disturbance: without behavioral disturbance Qualified Code(s): G30.1 - Alzheimer's disease with late onset; F02.80 - Dementia in other diseases classified elsewhere without behavioral disturbance Is this a current diagnosis for this admission?: Yes (4) Hypotension Qualifiers: Hypotension type: other hypotension type Qualified Code(s): I95.89 - Other hypotension Is this a current diagnosis for this admission?: Yes - Time Time Spent with patient: Less than 15 minutes Level of Care: IMCU
[2019-09-01] MEDS: FERROUS SULFATE LIQUID 300 MG/5 ML UDC PEG SCH (21:29)
[2019-09-01] MEDS: DONEPEZIL HCL 5 MG TABLET PEG SCH (21:29)
[2019-09-01] MEDS: MIRTAZAPINE 15 MG TABLET PEG SCH (21:34)
[2019-09-02] MEDS: METOPROLOL TARTRATE 50 MG TABLET PEG SCH (09:42)
[2019-09-02] MEDS: LACTOBACILLUS ACIDOPHILUS 250 MG TAB PEG SCH ×2 (09:42→17:35)
[2019-09-02] MEDS: CHOLECALCIFEROL (D3) 1,000 UNIT (25 MCG) TABLET PEG SCH (09:42)
[2019-09-02] MEDS: APIXABAN 2.5 MG TABLET PEG SCH ×2 (09:43→17:35)
[2019-09-02] MEDS: PANTOPRAZOLE SODIUM 40 MG PACKET.DR GT SCH (09:43)
[2019-09-02] MEDS: CALCITRIOL 1 MCG/ML ORAL SOLN 15 ML PEG SCH (09:43)
[2019-09-02] MEDS: LEVETIRACETAM ORAL SOLN 500 MG/5 ML UDCUP PEG SCH ×2 (09:43→22:05)
[2019-09-02] MEDS: MAGNESIUM OXIDE 400 MG TABLET PEG SCH (09:43)
[2019-09-02] MEDS: CLOTRIMAZOLE 1% CREAM 15 GM TP SCH (09:44)
[2019-09-02] MEDS: NYSTATIN TOPICAL POWDER 15 GM TP SCH (09:44)
[2019-09-02] MEDS: LACOSAMIDE 100 MG TABLET PEG SCH ×2 (09:44→22:05)
[2019-09-02] MEDS: NORMAL SALINE 1000 ML 1,000 ML IV PRN (11:49)
--- NOTE | 2019-09-02 13:41 | PDOC TRANSFER SUMMARY ---
Impression - Admit/DC Date/PCP Admission Date/Primary Care Provider: 08/28/19 00:53 MARY RASHID MD Discharge Date: 09/02/19 - Discharge Diagnosis (1) Acute kidney injury Is this a current diagnosis for this admission?: Yes (2) Urinary tract infection Is this a current diagnosis for this admission?: Yes (3) Dementia Is this a current diagnosis for this admission?: Yes (4) Hypotension Is this a current diagnosis for this admission?: Yes (5) Paroxysmal atrial fibrillation Is this a current diagnosis for this admission?: Yes (6) History of cerebellar stroke Is this a current diagnosis for this admission?: Yes (7) Epilepsy Is this a current diagnosis for this admission?: Yes - Additional Information Discharge Diet: Tube Feeding (Comments) Discharge Activity: Activity As Tolerated Referrals: MARY RASHID MD [Primary Care Provider] - Follow up as needed Home Medications: Allopurinol [Zyloprim 100 mg Tablet] 100 mg PEG DAILY 08/27/19 Cholecalciferol (Vitamin D3) [Vitamin D3 1000 Unit Tablet] 2,000 unit PEG DAILY 08/27/19 Ferrous Sulfate [Feosol 325 mg Tablet] 325 mg PEG QHS 08/27/19 Gabapentin [Neurontin 100 mg Capsule] 200 mg PEG QHS 08/27/19 Lacosamide [Vimpat 100 mg Tablet] 100 mg PEG Q12 08/27/19 Levothyroxine Sodium [Synthroid 0.075 mg Tablet] 0.075 mg PEG DAILY 08/27/19 Acetaminophen [Tylenol] 650 mg PO Q6HP PRN 08/28/19 Apixaban [Eliquis 2.5 mg Tablet] 2.5 mg PO BID 08/28/19 Calcitriol [Rocaltrol 0.25 mcg Capsule] 1 cap PO DAILY 08/28/19 Clotrimazole [Lotrimin AF] 1 applic TP DAILY 08/28/19 Diphenhydramine HCl [Benadryl] 25 mg PO Q6HP PRN 08/28/19 Donepezil HCl 10 mg PO QHS 08/28/19 L.acidoph/L.bulg/B.bif/S.therm [Bacid Caplet] 2 tab PO BID 08/28/19 Levetiracetam 1,000 mg PO BID 08/28/19 Magnesium Oxide [Mag-Ox 400 mg Tablet] 400 mg PO QAM 08/28/19 Metoprolol Succinate [Toprol Xl 50 mg Tab.sr] 50 mg PO DAILY 08/28/19 Nystatin [Mycostatin Topical Powder 15 gm] 1 applic TP QAM 08/28/19 Pantoprazole Sodium 40 mg PO QAM 08/28/19 History of Present Illiness History of Present Illness: IVY CLAIRE is a 78 year old female, Very unfortunate nice female that I have been following for many years, she has progressive dementia, prior CVA, seizure disorder, cerebellar infarct, chronic kidney disease stage III, hypertension, pulmonary embolism. Patient dementia as progressively gotten worse, she does not communicate reasonably well any longer, she also is not eating, family decided to initiate a PEG tube. She had blood work done in the residential, the blood work demonstrated serum creatinine 2.19, BUN 95, serum potassium 6.2 because of this abnormal lab data I call the residential to advised the patient to be transferred to the hospital. Patient's granddaughter does not seem to understand the gravity of patient's disease, I could not get any history from this patient, she is very confused.I have had family conference with patient's son and daughter about the natural history of dementia, I explained to them that is a progressive disease there is no disease modifying medication yet available, patient's condition will progress and it is not because of inadequate care but unfortunately is the nature of the disease process Hospital Course Hospital Course: Patient was admitted for the management of acute kidney injury, she has underlining chronic kidney disease stage III. There was associated hyperkalemia, there was associated hypotension, this was responsive to fluid therapy, she did not require vasopressors. She had a UTI, she was empirically treated with Zosyn initially on admission, the blood culture grew enterococcus and Staphylococcus species, it was felt this was contaminant, she was seen by infectious disease, the recommendation was not to change antibiotic because the enterococcus species was resistant to the antibiotic she was on and it was only sensitive to vancomycin. The vancomycin was not started, the blood was recultured and it was negative for any growth suggesting that this is probably contamination and not a true infection. Patient is back to baseline, she has baseline dementia with baseline confusion, she is not able to hold any conv ersation, this is a patient I follow for many years, there is clearly progressive decline in her cognitive function. The patient's granddaughter refused to understand the disease process and she wants to blame providers for natural decline of her dementia I have decided to recuse myself from her care when she returns to the [facility] for continuity of care. Physical Exam Vital Signs: Temp Pulse Resp BP Pulse Ox 97.5 F 73 17 113/75 100 09/02/19 11:39 09/02/19 11:39 09/02/19 11:39 09/02/19 11:39 09/02/19 11:39 Intake & Output 09/01/19 09/02/19 09/03/19 06:59 06:59 06:59 Intake Total 3238 4509 923 Output Total 281 425 Balance 5534 2322 923 Weight 87.3 kg 87.3 kg 87.3 kg General appearance: PRESENT: morbidly obese Eye exam: PRESENT: PERRLA Respiratory exam: PRESENT: clear to auscultation heidi Cardiovascular exam: PRESENT: +S1, +S2 GI/Abdominal exam: PRESENT: soft Neurological exam: PRESENT: alert, CN II-XII grossly intact Results Laboratory Results: WBC 7.0 10^3/uL (4.0-10.5) 08/31/19 06:05 RBC 3.05 10^6/uL (3.72-5.28) L 08/31/19 06:05 Hgb 9.2 g/dL (12.0-15.5) L 08/31/19 06:05 Hct 27.2 % (36.0-47.0) L 08/31/19 06:05 MCV 89 fl (80-97) 08/31/19 06:05 MCH 30.0 pg (27.0-33.4) 08/31/19 06:05 MCHC 33.7 g/dL (32.0-36.0) 08/31/19 06:05 RDW 19.2 % (11.5-14.0) H 08/31/19 06:05 Plt Count 277 10^3/uL (150-450) 08/31/19 06:05 Lymph % (Auto) 25.9 % (13-45) 08/31/19 06:05 Grainger % (Auto) 9.6 % (3-13) 08/31/19 06:05 Eos % (Auto) 5.5 % (0-6) 08/31/19 06:05 Baso % (Auto) 1.2 % (0-2) 08/31/19 06:05 Absolute Neuts (auto) 4.0 10^3/uL (1.7-8.2) 08/31/19 06:05 Absolute Lymphs (auto) 1.8 10^3/uL (0.5-4.7) 08/31/19 06:05 Absolute Monos (auto) 0.7 10^3/uL (0.1-1.4) 08/31/19 06:05 Absolute Eos (auto) 0.4 10^3/uL (0.0-0.6) 08/31/19 06:05 Absolute Basos (auto) 0.1 10^3/uL (0.0-0.2) 08/31/19 06:05 Seg Neutrophils % 57.8 % (42-78) 08/31/19 06:05 PT 13.8 SEC (11.4-15.4) 08/27/19 20:24 INR 1.06 08/27/19 20:24 VBG pH 7.43 (7.30-7.42) H 08/27/19 20:24 VBG pCO2 42.8 mmHg (35-63) 08/27/19 20:24 VBG HCO3 27.6 mmol/L (20-32) 08/27/19 20:24 VBG Base Excess 2.9 mmol/L 08/27/19 20:24 Sodium 139.3 mmol/L (137-145) 08/30/19 06:51 Potassium 3.4 mmol/L (3.6-5.0) L 08/30/19 06:51 Chloride 112 mmol/L (98-107) H 08/30/19 06:51 Carbon Dioxide 22 mmol/L (22-30) 08/30/19 06:51 Anion Gap 5 (5-19) 08/30/19 06:51 BUN 37 mg/dL (7-20) H 08/30/19 06:51 Creatinine 1.23 mg/dL (0.52-1.25) 08/30/19 06:51 Est GFR ( Amer) 51 (>60) L 05/20/20 06:51 Est GFR (MDRD) Non-Af 42 (>60) L 08/30/19 06:51 Glucose 98 mg/dL (75-110) 08/30/19 06:51 POC Glucose 105 mg/dL (70-110) 09/02/19 11:41 Lactic Acid 2.0 mmol/L (0.7-2.1) 08/28/19 02:48 Calcium 8.6 mg/dL (8.4-10.2) 08/30/19 06:51 Magnesium 2.4 mg/dL (1.6-2.3) H 08/27/19 20:24 Total Bilirubin 0.2 mg/dL (0.2-1.3) 08/27/19 20:24 Direct Bilirubin 0.0 mg/dL (0.0-0.4) 08/27/19 20:24 Neonat Total Bilirubin Not Reportable 08/27/19 20:24 Neonat Direct Bilirubin Not Reportable 08/27/19 20:24 Neonat Indirect Bili Not Reportable 08/27/19 20:24 AST 21 U/L (14-36) 08/27/19 20:24 ALT 8 U/L (<35) 08/27/19 20:24 Alkaline Phosphatase 93 U/L (38-126) 08/27/19 20:24 Troponin I 0.028 ng/mL 08/27/19 20:24 NT-Pro-B Natriuret Pep 6910 pg/mL (<450) H 08/27/19 20:24 Total Protein 6.2 g/dL (6.3-8.2) L 08/27/19 20:24 Albumin 2.8 g/dL (3.5-5.0) L 08/27/19 20:24 Urine Color YELLOW 08/27/19 20:24 Urine Appearance CLOUDY 08/27/19 20:24 Urine pH 6.0 (5.0-9.0) 08/27/19 20:24 Ur Specific [place] 1.010 08/27/19 20:24 Urine Protein NEGATIVE mg/dL (NEGATIVE) 08/27/19 20:24 Urine Glucose (UA) NEGATIVE mg/dL (NEGATIVE) 08/27/19 20:24 Urine Ketones NEGATIVE mg/dL (NEGATIVE) 08/27/19 20:24 Urine Blood SMALL (NEGATIVE) H 08/27/19 20:24 Urine Nitrite NEGATIVE (NEGATIVE) 08/27/19 20:24 Urine Bilirubin NEGATIVE (NEGATIVE) 08/27/19 20:24 Urine Urobilinogen NEGATIVE mg/dL (<2.0) 08/27/19 20:24 Ur Leukocyte Esterase LARGE (NEGATIVE) H 08/27/19 20:24 Urine WBC (Auto) >182 /HPF 08/27/19 20:24 Urine RBC (Auto) 23 /HPF 08/27/19 20:24 U Hyaline Cast (Auto) 5 /LPF 08/27/19 20:24 Urine Bacteria (Auto) 3+ /HPF 08/27/19 20:24 Urine WBC Clumps MANY /HPF 08/27/19 20:24 Squamous Epi Cells Auto 1 /HPF 08/27/19 20:24 Urine Yeast (Budding) PRESENT /HPF 08/27/19 20:24 Urine Ascorbic Acid 40 (NEGATIVE) H 08/27/19 20:24 Urine Opiates Screen NEGATIVE 08/27/19 20:24 Urine Methadone Screen NEGATIVE 08/27/19 20:24 Ur Barbiturates Screen NEGATIVE 08/27/19 20:24 Ur Phencyclidine Scrn NEGATIVE 08/27/19 20:24 Ur Amphetamines Screen NEGATIVE 08/27/19 20:24 U Benzodiazepines Scrn NEGATIVE 08/27/19 20:24 Urine Cocaine Screen NEGATIVE 08/27/19 20:24 U Marijuana (THC) Screen NEGATIVE 08/27/19 20:24 Serum Alcohol < 10 mg/dL (NONE DETECTED) 08/27/19 20:24 COVID-19 Source NASOPHARYNGEAL 08/29/19 16:00 COVID-19 ([place]) NOT DETECTED 08/29/19 16:00 08/27/19 08/27/19 20:24 20:24 Troponin I 0.028 NT-Pro-B Natriuret Pep 6910 H Impressions: Head CT 08/27/19 21:37 IMPRESSION: Age-appropriate atrophy and small vessel ischemic change TECHNICAL DOCUMENTATION: Quality ID # 436: Final reports with documentation of one or more dose reduction techniques (e.g., Automated exposure control, adjustment of the mA and/or kV according to patient size, use of iterative reconstruction technique) copyright 2011 [employer]- All Rights Reserved Chest X-Ray 08/27/19 22:27 IMPRESSION: Nodular right perihilar airspace opacity may reflect pneumonia however follow-up is recommended. copyright 2011 [employer]- All Rights Reserved Chest CT 08/28/19 00:00 IMPRESSION: No acute abnormality within the chest. TECHNICAL DOCUMENTATION: Quality ID # [id number]: Final reports with documentation of one or more dose reduction techniques (e.g., Automated exposure control, adjustment of the mA and/or kV according to patient size, use of iterative reconstruction technique) copyright 2011 [employer]- All Rights Reserved Plan Plan of Treatment: Patient is to return to residential, the residential should transfer patient's care to another provider, I can no longer continue to take care of this patient because the family has refused to understand the natural history of dementia after I have spent many hours explaining to them the natural history and expectation of dementia ,rather than pointing fingers and trying to blame everybody for the natural decline of her dementia Stroke Is this a Stroke Patient?: No Acute Heart Failure - Is this a Heart Failure Patient?: No
--- NOTE | 2019-09-02 16:41 | PDOC PROGRESS REPORT ---
Subjective Progress Note for:: 09/02/19 Subjective:: Patient seen by the bedside, she is ready for discharge but the alf to accept on Wednesday Reason For Visit: UTI (URINARY TRACT INFECTION),PNEUMONIA,ACUTE Physical Exam Vital Signs: Temp Pulse Resp BP Pulse Ox 97.5 F 73 17 113/75 100 09/02/19 11:39 09/02/19 11:39 09/02/19 11:39 09/02/19 11:39 09/02/19 11:39 Intake & Output 09/01/19 09/02/19 09/03/19 06:59 06:59 06:59 Intake Total 1987 2747 923 Output Total 550 425 Balance 1438 2322 923 Weight 87.3 kg 87.3 kg 87.3 kg General appearance: PRESENT: no acute distress Eye exam: PRESENT: PERRLA Respiratory exam: PRESENT: clear to auscultation heidi Cardiovascular exam: PRESENT: +S1, +S2 GI/Abdominal exam: PRESENT: soft Neurological exam: PRESENT: alert Results Laboratory Results: 08/31/19 06:05 08/30/19 06:51 08/27/19 21:30 Blood Blood Culture - Final NO GROWTH IN 5 DAYS 08/27/19 20:24 Blood Blood Culture (PCR) - Final Enterococcus Species Staphylococcus Species 08/27/19 20:24 Blood Blood Culture - Final Enterococcus Faecium (Group D) Staphylococcus Epidermidis 08/27/19 08/27/19 20:24 20:24 Troponin I 0.028 NT-Pro-B Natriuret Pep 6910 H Impressions: Head CT 08/27/19 21:37 IMPRESSION: Age-appropriate atrophy and small vessel ischemic change TECHNICAL DOCUMENTATION: Quality ID # 436: Final reports with documentation of one or more dose reduction techniques (e.g., Automated exposure control, adjustment of the mA and/or kV according to patient size, use of iterative reconstruction technique) copyright 2010 [employer]- All Rights Reserved Chest X-Ray 08/27/19 22:27 IMPRESSION: Nodular right perihilar airspace opacity may reflect pneumonia however follow-up is recommended. copyright 2010 [employer]- All Rights Reserved Chest CT 08/28/19 00:00 IMPRESSION: No acute abnormality within the chest. TECHNICAL DOCUMENTATION: Quality ID # 436: Final reports with documentation of one or more dose reduction techniques (e.g., Automated exposure control, adjustment of the mA and/or kV according to patient size, use of iterative reconstruction technique) copyright 2011 [employer]- All Rights Reserved Assessment & Plan - Diagnosis (1) Acute kidney injury Is this a current diagnosis for this admission?: Yes (2) Urinary tract infection Qualifiers: Urinary tract infection type: site unspecified Hematuria presence: without hematuria Qualified Code(s): N39.0 - Urinary tract infection, site not specified Is this a current diagnosis for this admission?: Yes (3) Dementia Qualifiers: Dementia type: Alzheimer's disease Alzheimer's disease onset: late-onset Dementia behavioral disturbance: without behavioral disturbance Qualified Code(s): G30.1 - Alzheimer's disease with late onset; F02.80 - Dementia in other diseases classified elsewhere without behavioral disturbance Is this a current diagnosis for this admission?: Yes (4) Hypotension Qualifiers: Hypotension type: other hypotension type Qualified Code(s): I95.89 - Other hypotension Is this a current diagnosis for this admission?: Yes (5) Paroxysmal atrial fibrillation Is this a current diagnosis for this admission?: Yes (6) History of cerebellar stroke Is this a current diagnosis for this admission?: Yes (7) Epilepsy Is this a current diagnosis for this admission?: Yes - Time Time Spent with patient: Less than 15 minutes
[2019-09-02] MEDS: FERROUS SULFATE LIQUID 300 MG/5 ML UDC PEG SCH (22:05)
[2019-09-02] MEDS: MIRTAZAPINE 15 MG TABLET PEG SCH (22:05)
[2019-09-02] MEDS: DONEPEZIL HCL 5 MG TABLET PEG SCH (22:05)
[2019-09-03] MEDS: LACOSAMIDE 100 MG TABLET PEG SCH ×2 (09:37→21:39)
[2019-09-03] MEDS: LACTOBACILLUS ACIDOPHILUS 250 MG TAB PEG SCH ×2 (09:37→17:23)
[2019-09-03] MEDS: METOPROLOL TARTRATE 50 MG TABLET PEG SCH (09:37)
[2019-09-03] MEDS: APIXABAN 2.5 MG TABLET PEG SCH ×2 (09:37→17:23)
[2019-09-03] MEDS: CHOLECALCIFEROL (D3) 1,000 UNIT (25 MCG) TABLET PEG SCH (09:37)
[2019-09-03] MEDS: LEVETIRACETAM ORAL SOLN 500 MG/5 ML UDCUP PEG SCH ×2 (09:38→21:40)
[2019-09-03] MEDS: CLOTRIMAZOLE 1% CREAM 15 GM TP SCH (09:38)
[2019-09-03] MEDS: CALCITRIOL 1 MCG/ML ORAL SOLN 15 ML PEG SCH (09:38)
[2019-09-03] MEDS: NYSTATIN TOPICAL POWDER 15 GM TP SCH (09:38)
[2019-09-03] MEDS: MAGNESIUM OXIDE 400 MG TABLET PEG SCH (09:38)
[2019-09-03] MEDS: PANTOPRAZOLE SODIUM 40 MG PACKET.DR GT SCH (10:00)
--- NOTE | 2019-09-03 16:17 | PDOC PROGRESS REPORT ---
Subjective Progress Note for:: 09/03/19 Subjective:: Patient seen by the bedside, she is ready for discharge but the [facility] Reason For Visit: UTI (URINARY TRACT INFECTION),PNEUMONIA,ACUTE Physical Exam Vital Signs: Temp Pulse Resp BP Pulse Ox 97.5 F 98 16 108/43 L 100 09/03/19 08:02 09/03/19 08:02 09/03/19 08:02 09/03/19 08:02 09/03/19 08:02 Intake & Output 09/02/19 09/03/19 09/04/19 06:59 06:59 06:59 Intake Total 2747 2094 Output Total 425 200 Balance 2322 1894 Weight 87.3 kg 81.9 kg General appearance: PRESENT: no acute distress Eye exam: PRESENT: PERRLA Respiratory exam: PRESENT: clear to auscultation heidi Cardiovascular exam: PRESENT: +S1, +S2 GI/Abdominal exam: PRESENT: soft Neurological exam: PRESENT: alert Results Laboratory Results: 08/31/19 06:05 08/30/19 06:51 09/01/19 02:30 Clean Catch Midstream Urine Culture - Final NO GROWTH 2 DAYS 08/27/19 08/27/19 20:24 20:24 Troponin I 0.028 NT-Pro-B Natriuret Pep 6910 H Impressions: Head CT 08/27/19 21:37 IMPRESSION: Age-appropriate atrophy and small vessel ischemic change TECHNICAL DOCUMENTATION: Quality ID # [id number]: Final reports with documentation of one or more dose reduction techniques (e.g., Automated exposure control, adjustment of the mA and/or kV according to patient size, use of iterative reconstruction technique) copyright 2010 [employer]- All Rights Reserved Chest X-Ray 08/27/19 22:27 IMPRESSION: Nodular right perihilar airspace opacity may reflect pneumonia however follow-up is recommended. copyright 2010 [employer]- All Rights Reserved Chest CT 08/28/19 00:00 IMPRESSION: No acute abnormality within the chest. TECHNICAL DOCUMENTATION: Quality ID # [id number]: Final reports with documentation of one or more dose reduction techniques (e.g., Automated exposure control, adjustment of the mA and/or kV according to patient size, use of iterative reconstruction technique) copyright 2011 [employer]- All Rights Reserved Assessment & Plan - Diagnosis (1) Acute kidney injury Is this a current diagnosis for this admission?: Yes (2) Urinary tract infection Qualifiers: Urinary tract infection type: site unspecified Hematuria presence: without hematuria Qualified Code(s): N39.0 - Urinary tract infection, site not specified Is this a current diagnosis for this admission?: Yes (3) Dementia Qualifiers: Dementia type: Alzheimer's disease Alzheimer's disease onset: late-onset Dementia behavioral disturbance: without behavioral disturbance Qualified Code(s): G30.1 - Alzheimer's disease with late onset; F02.80 - Dementia in other diseases classified elsewhere without behavioral disturbance Is this a current diagnosis for this admission?: Yes (4) Hypotension Qualifiers: Hypotension type: other hypotension type Qualified Code(s): I95.89 - Other hypotension Is this a current diagnosis for this admission?: Yes (5) Paroxysmal atrial fibrillation Is this a current diagnosis for this admission?: Yes (6) History of cerebellar stroke Is this a current diagnosis for this admission?: Yes (7) Epilepsy Is this a current diagnosis for this admission?: Yes - Time Time Spent with patient: Less than 15 minutes Level of Care: IMCU
[2019-09-03] MEDS: MIRTAZAPINE 15 MG TABLET PEG SCH (21:37)
[2019-09-03] MEDS: FERROUS SULFATE LIQUID 300 MG/5 ML UDC PEG SCH (21:37)
[2019-09-03] MEDS: DONEPEZIL HCL 5 MG TABLET PEG SCH (21:38)
[2019-09-04] MEDS: MAGNESIUM OXIDE 400 MG TABLET PEG SCH (10:41)
[2019-09-04] MEDS: CHOLECALCIFEROL (D3) 1,000 UNIT (25 MCG) TABLET PEG SCH (10:41)
[2019-09-04] MEDS: CALCITRIOL 1 MCG/ML ORAL SOLN 15 ML PEG SCH (10:41)
[2019-09-04] MEDS: METOPROLOL TARTRATE 50 MG TABLET PEG SCH (10:41)
[2019-09-04] MEDS: LACOSAMIDE 100 MG TABLET PEG SCH (10:41)
[2019-09-04] MEDS: APIXABAN 2.5 MG TABLET PEG SCH (10:41)
[2019-09-04] MEDS: LACTOBACILLUS ACIDOPHILUS 250 MG TAB PEG SCH (10:41)
[2019-09-04] MEDS: NYSTATIN TOPICAL POWDER 15 GM TP SCH (10:41)
[2019-09-04] MEDS: LEVETIRACETAM ORAL SOLN 500 MG/5 ML UDCUP PEG SCH (10:42)
[2019-09-04] MEDS: PANTOPRAZOLE SODIUM 40 MG PACKET.DR GT SCH (10:42)
[2019-09-04] MEDS: CLOTRIMAZOLE 1% CREAM 15 GM TP SCH (10:42)
[2019-09-04 12:37] VITALS: BP 142/73
== END 2019-09-04 15:47 | DRG 683 ==
LOC: ER 19:57 → EH 08-28 00:53 → 3S 08-28 01:57
PROVIDERS: ADMIT Internal Medicine; ATTEND Internal Medicine
DX: N17.9 Acute kidney failure, unspecified (principal); N30.01 Acute cystitis with hematuria; E87.5 Hyperkalemia; I12.9 Hypertensive chronic kidney disease with stage 1 through stage 4 chronic kidney disease, or unspecified chronic kidney disease; N18.3 Chronic kidney disease, stage 3 (moderate); I48.0 Paroxysmal atrial fibrillation; E78.5 Hyperlipidemia, unspecified; G40.909 Epilepsy, unspecified, not intractable, without status epilepticus; M19.90 Unspecified osteoarthritis, unspecified site; Z96.651 Presence of right artificial knee joint; G30.1 Alzheimer's disease with late onset; F02.80 Dementia in other diseases classified elsewhere, unspecified severity, without behavioral disturbance, psychotic disturbance, mood disturbance, and anxiety; I95.89 Other hypotension; Z87.440 Personal history of urinary (tract) infections; Z86.73 Personal history of transient ischemic attack (TIA), and cerebral infarction without residual deficits; Z93.1 Gastrostomy status; Z86.711 Personal history of pulmonary embolism; Z79.899 Other long term (current) drug therapy; Z20.828 Contact with and (suspected) exposure to other viral communicable diseases
CPT/HCPCS: 36415; 70450; 71045; 71250; 80048; 80307; 81001; 82803; 82962; 83605; 83735; 83880; 84484; 85025; 85027; 85610; 87040; 87070; 87077; 87086; 87088; 87150; 87186; 87635; 93005; 93010; 96361; 96365; 96367; 96375; 96376; 99291; J0610; J1815; J2543; J3370; J3490; J7030; J7050; S0028

== ENCOUNTER → 2019-12-08 | Outpatient (CLI) | payer MEDICARE, MEDICAID ==
[2019-12-08 08:27] LABS: ALBUMIN 3.3 g/dL (3.5-5.0); ANION GAP 7 (5-19); BLOOD UREA NITROGEN 93 mg/dL (7-20); CALCIUM 11.9 mg/dL (8.4-10.2); CARBON DIOXIDE 31 mmol/L (22-30); CHLORIDE 106 mmol/L (98-107); GLUCOSE 116 mg/dL (75-110); POTASSIUM 5.5 mmol/L (3.6-5.0)
== END ==
LOC: PNR 07:56
PROVIDERS: ATTEND Family Medicine
DX: E21.0 Primary hyperparathyroidism (principal); N18.3 Chronic kidney disease, stage 3 (moderate)
CPT/HCPCS: 80048; 82040; 82306; 83970; 99282